=== PATIENT | female | born 1955 | race Caucasian/White ===

== ENCOUNTER → 2016-06-02 | Outpatient (CLI) | payer MEDICARE, BC ==
--- NOTE | 2016-06-04 08:35 | MM ---
Reason for exam: screening (asymptomatic). Last mammogram was performed 1 year and 1 month ago. History: Patient is postmenopausal. Family history of breast cancer in sister. Benign excisional biopsy of the right breast, 1997. Took estrogen for 23 years beginning at age 27. Physical Findings: A clinical breast exam by your physician is recommended on an annual basis and results should be correlated with mammographic findings. MG 3D Screening Mammo W/Cad Bilateral CC and MLO view(s) were taken. Prior study comparison: April 26, 2015, bilateral MG 3d diag mammo w/cad JUANCHO. February 16, 2014, right breast MG work up mamm w CAD RT. February 09, 2014, bilateral MG screening mammo w CAD. July 01, 2012, bilateral digital screening mammo w/CAD. The breast tissue is heterogeneously dense. This may lower the sensitivity of mammography. No significant changes when compared with prior studies. ASSESSMENT: Negative, BI-RAD 1 RECOMMENDATION: Routine screening mammogram of both breasts in 1 year.
== END | disposition home or self-care (01) ==
LOC: RADMAMWWP 14:48
PROVIDERS: ATTEND Obstetrics & Gynecology
DX: Z12.31 Encounter for screening mammogram for malignant neoplasm of breast (principal)
CPT/HCPCS: 77063; G0202

== ENCOUNTER → 2016-12-17 | Outpatient (CLI) | payer MEDICARE, BC ==
--- NOTE | 2016-12-18 07:01 | ECHOF ---
Referral Reason:I49.9 cardiac arrhythmia MEASUREMENTS -------- HEIGHT: 167.6 cm WEIGHT: 60.8 kg BP: IVSd: 1.1 cm (0.6 - 1.1) LVIDd: 3.6 cm (3.9 - 5.3) LVPWd: 1.2 cm (0.6 - 1.1) IVSs: 1.5 cm LVIDs: 2.0 cm LVPWs: 1.7 cm LAESV Index (A-L): 20.15 ml/m Ao Diam: 2.7 cm (2.0 - 3.7) AV Cusp: 1.7 cm (1.5 - 2.6) LA Diam: 2.9 cm (2.7 - 3.8) MV EXCURSION: 14.273 mm (> 18.000) MV EF SLOPE: 103 mm/s (70 - 150) EPSS: 0.6 cm MV E Gumaro: 0.92 m/s MV DecT: 148 ms MV A Gumaro: 1.06 m/s MV E/A Ratio: 0.86 RAP: 5.00 mmHg RVSP: 9.06 mmHg FINDINGS -------- Sinus rhythm. This was a technically good study. The left ventricular size is normal. There is mild concentric left ventricular hypertrophy. Overall left ventricular systolic function is normal with, an EF between 55 - 60 %. The right ventricle is normal in size and function. The left atrium is normal in size. The right atrium is normal in size. Aortic valve is trileaflet and is mildly thickened. The mitral valve leaflets are mildly thickened. There is trace mitral regurgitation. Trace tricuspid regurgitation present. The right ventricular systolic pressure, as measured by Doppler, is 9.06mmHg. Pulmonic valve appears structurally normal. The aortic root size is normal. The pericardium is normal. CONCLUSIONS -------- 1. Sinus rhythm. 2. The mitral valve leaflets are mildly thickened. 3. There is trace mitral regurgitation. 4. Trace tricuspid regurgitation present. 5. The right ventricular systolic pressure, as measured by Doppler, is 9.06mmHg. 6. Pulmonic valve appears structurally normal. 7. The aortic root size is normal. 8. The pericardium is normal. 9. This was a technically good study. 10. The left ventricular size is normal. 11. There is mild concentric left ventricular hypertrophy. 12. Overall left ventricular systolic function is normal with, an EF between 55 - 60 %. 13. The right ventricle is normal in size and function. 14. The left atrium is normal in size. 15. The right atrium is normal in size. 16. Aortic valve is trileaflet and is mildly thickened. [employer]: Katelyn Bella RDCS
== END | disposition home or self-care (01) ==
LOC: RADECHMAIN 12:56
PROVIDERS: ATTEND Family Medicine
DX: I08.0 Rheumatic disorders of both mitral and aortic valves (principal)
CPT/HCPCS: 93306

== ENCOUNTER → 2017-07-03 | Outpatient (CLI) | payer MEDICARE, BC ==
--- NOTE | 2017-07-06 11:03 | MM ---
Reason for exam: screening (asymptomatic). Last mammogram was performed 1 year and 1 month ago. History: Patient is postmenopausal. Family history of breast cancer in sister. Benign excisional biopsy of the right breast, 1997. Took estrogen for 23 years beginning at age 27. Physical Findings: A clinical breast exam by your physician is recommended on an annual basis and results should be correlated with mammographic findings. MG 3D Screening Mammo W/Cad Bilateral CC, MLO, and XCCL view(s) were taken. Prior study comparison: June 02, 2016, bilateral MG 3d screening mammo w/cad. April 26, 2015, bilateral MG 3d diag mammo w/cad JUANCHO. The breast tissue is heterogeneously dense. This may lower the sensitivity of mammography. No suspicious abnormality. No significant changes when compared with prior studies. ASSESSMENT: Negative, BI-RAD 1 RECOMMENDATION: Routine screening mammogram of both breasts in 1 year.
== END | disposition home or self-care (01) ==
LOC: RADMAMWWP 09:04
PROVIDERS: ATTEND Obstetrics & Gynecology
DX: Z12.31 Encounter for screening mammogram for malignant neoplasm of breast (principal)
CPT/HCPCS: 77063; 77067

== ENCOUNTER → 2018-06-10 | Outpatient (CLI) | payer MEDICARE, BC ==
--- NOTE | 2018-06-10 15:00 | US ---
EXAMINATION TYPE: US pelvic limited DATE OF EXAM: 06/10/2018 COMPARISON: NONE CLINICAL HISTORY: R10.2 Pelvic and perineal pain. Occasional pelvic pain, 2, para 1, miscarri age 1, history of complete hysterectomy 1982. TECHNIQUE: . Transabdominal sonographic images of the pelvis were acquired. Date of LMP: 1982 EXAM MEASUREMENTS: Uterus: surgically absent Endometrial Stripe: surgically absent Right Ovary: surgically absent Left Ovary: surgically absent 1. Uterus: surgically absent 2. Endometrium: surgically absent 3. Right Ovary: surgically absent 4. Left Ovary: surgically absent 5. Bilateral Adnexa: wnl 6. Posterior cul-de-sac: wnl IMPRESSION: Unremarkable pelvic ultrasound status post complete hysterectomy.
== END | disposition home or self-care (01) ==
LOC: RADUSWWP 14:03
PROVIDERS: ATTEND Family Medicine
DX: R10.2 Pelvic and perineal pain (principal); Z90.710 Acquired absence of both cervix and uterus
CPT/HCPCS: 76857

== ENCOUNTER → 2018-07-20 | Outpatient (CLI) | payer MEDICARE, OTHER ==
--- NOTE | 2018-07-22 11:11 | MM ---
Reason for exam: screening (asymptomatic). Last mammogram was performed 1 year and 1 month ago. History: Patient is postmenopausal. Family history of breast cancer in sister. Benign excisional biopsy of the right breast, 1997. Took estrogen for 23 years beginning at age 27. Physical Findings: A clinical breast exam by your physician is recommended on an annual basis and results should be correlated with mammographic findings. MG 3D Screening Mammo W/Cad Bilateral CC and MLO view(s) were taken. Prior study comparison: July 03, 2017, bilateral MG 3d screening mammo w/cad. June 02, 2016, bilateral MG 3d screening mammo w/cad. The breast tissue is heterogeneously dense. This may lower the sensitivity of mammography. No significant changes when compared with prior studies. ASSESSMENT: Benign, BI-RAD 2 RECOMMENDATION: Routine screening mammogram of both breasts in 1 year.
== END ==
LOC: RADMAMWWP 13:51
PROVIDERS: ATTEND Obstetrics & Gynecology
DX: Z12.31 Encounter for screening mammogram for malignant neoplasm of breast (principal); Z80.3 Family history of malignant neoplasm of breast
CPT/HCPCS: 77063; 77067

== ENCOUNTER → 2018-07-26 | Outpatient (CLI) | payer MEDICARE, OTHER ==
--- NOTE | 2018-07-26 13:08 | CT ---
EXAMINATION TYPE: CT facial bones wo con DATE OF EXAM: 07/26/2018 COMPARISON: None HISTORY: Headache and facial pain CT DLP: 583.[address] of the paranasal sinuses/facial bones was performed in the axial and coronal planes. B one and soft tissue settings are submitted. The paranasal sinuses demonstrate normal aeration and development. The basal thickening left sided sphenoid sinus. The remaining paranasal sinuses are well-aerated. The osteal meatal units are patent bilaterally. The nasal septum is midline. No bony destructive changes are seen within the field of view. IMPRESSION: Chronic sinusitis of the left-sided sphenoid sinus. No fracture or osseous lesions identified.
== END | disposition home or self-care (01) ==
LOC: RADCTMAIN 12:33
PROVIDERS: ATTEND Psychiatry & Neurology Neurology
DX: J32.3 Chronic sphenoidal sinusitis (principal); G50.1 Atypical facial pain
CPT/HCPCS: 70486

== ENCOUNTER → 2019-01-13 | Outpatient (CLI) | payer MEDICARE, OTHER ==
--- NOTE | 2019-01-14 07:06 | US ---
EXAMINATION TYPE: US kidneys/renal and bladder DATE OF EXAM: 01/13/2019 COMPARISON: NONE CLINICAL HISTORY: N39.0 UTI Disease. EXAM MEASUREMENTS: Right Kidney: 10.7 x5.9 x 4.4 cm Left Kidney: Surgically absent cm Post Void Residual Volume: 0.8 mL Right Kidney: No hydronephrosis or masses seen Left Kidney: Surgically absent Bladder: wnl Bilateral Jets seen: rt, left Surgically absent kidney Normal Post Void Residual: Yes There is no evidence for hydronephrosis at this point in time. No nephrolithiasis is seen. No meek s are identified. The urinary bladder is not greatly distended. Bilateral ureteral jets are not see n. After voiding bladder is essentially completely emptied. IMPRESSION: No hydronephrosis in the single right kidney.
== END | disposition home or self-care (01) ==
LOC: RADUSWWP 12:06
PROVIDERS: ATTEND Family Medicine
DX: N39.0 Urinary tract infection, site not specified (principal)
CPT/HCPCS: 76770

== ENCOUNTER 2019-03-15 22:35 | Emergency (ER) | payer MEDICARE, OTHER ==
[2019-03-15] MEDS ORDERED: SODIUM CHLORIDE 0.9% 500 ML 500 ML IV STA (22:54)
[2019-03-15] MEDS ORDERED: ONDANSETRON 4 MG/2 ML VIAL IVP STA ×2 (22:55→23:49)
[2019-03-15] MEDS ORDERED: MORPHINE SULFATE 2 MG/ML SYRINGE IVP STA (22:55)
[2019-03-15 23:15] LABS: Basophils % (A) 1 %; Eosinophils # (A) 0.1 k/uL (0-0.7); Eosinophils % (A) 2 %; HCT 42.1 % (34.0-46.0); HGB 14.3 gm/dL (11.4-16.0); Lymphocytes # (A) 2.1 k/uL (1.0-4.8); Lymphocytes % (A) 31 %; MCH 30.4 pg (25.0-35.0); MCHC 33.8 g/dL (31.0-37.0); MCV 89.8 fL (80.0-100.0); Mean Platelet Volume 7.4; Monocytes # (A) 0.6 k/uL (0-1.0); Monocytes % (A) 8 %; Neutrophils # (A) 3.5 k/uL (1.3-7.7); Neutrophils % (A) 54 %; Platelet Count 224 k/uL (150-450); RDW 11.8 % (11.5-15.5); WBC 6.6 k/uL (3.8-10.6)
[2019-03-15 23:26] LABS: ALT 22 U/L (9-52); AST 31 U/L (14-36); African American GFR (CKD) >90 (>60 ml/min/1.73 sqM); Albumin 4.2 g/dL (3.5-5.0); Alkaline Phosphatase 65 U/L (38-126); Anion Gap 7 mmol/L; Blood Urea Nitrogen 20 mg/dL (7-17); Calcium 9.3 mg/dL (8.4-10.2); Carbon Dioxide 30 mmol/L (22-30); Chloride 105 mmol/L (98-107); Glucose 124 mg/dL (74-99); Non-African American GFR(CKD) 82 (>60 ml/min/1.73 sqM); Potassium 3.9 mmol/L (3.5-5.1); Sodium 142 mmol/L (137-145); Total Bilirubin 0.4 mg/dL (0.2-1.3); Total Protein 6.9 g/dL (6.3-8.2)
[2019-03-15 23:28] LABS: INR 0.9 (<1.2); Prothrombin Time 9.6 sec (9.0-12.0)
[2019-03-15] MEDS ORDERED: MORPHINE SULFATE 4 MG/ML SYRINGE IVP STA (23:48)
[2019-03-15] MEDS ORDERED: FAMOTIDINE 20 MG/2 ML VIAL IV STA (23:50)
[2019-03-15] MEDS ORDERED: diphenhydrAMINE 50 MG/ML 1 ML VIAL IVP STA (23:50)
[2019-03-15] MEDS ORDERED: methylPREDNISolone SOD SUCCI 125 MG/2 ML VIAL IV STA (23:50)
--- NOTE | 2019-03-15 23:55 | ED ---
General Adult HPI - General Chief complaint: Syncope Stated complaint: neck/head neck Time Seen by Provider: 03/15/19 22:47 Source: patient, EMS Mode of arrival: EMS Limitations: no limitations - History of Present Illness Initial comments: 63-year-old female patient presents to the emergency department today for evaluation of headache and near syncope. Patient states the headache started suddenly approximately 30 minutes ago. Patient states the pain is in the top of her head and in her neck. Patient states that when the pain started she nearly passed out. She denies any history of similar symptoms. Denies any recent head injury. Does not take any anticoagulants or antiplatelet medications. Patient states that the day was normal for her and she felt well. Denies history of high blood pressure. Has a history of Mnire's, vertigo, and hypothyroid. Denies any new medications. Denies numbness, tingling, weakness or extremities. Denies blurred or double vision. She is reporting nausea but no vomiting. Patient denies any recent rash, shortness breath, chest pain, abdominal pain, diarrhea, constipation, back pain, numbness, tingling, hematuria, dysuria, urinary urgency, urinary frequency, or any other complaints. - Related Data Home Medications Medication Instructions Recorded Confirmed Aspirin EC [Ecotrin Low Dose] 81 mg PO DAILY 09/20/14 09/20/14 Gabapentin 600 mg PO HS 09/20/14 09/21/14 Levothyroxine Sodium [Tirosint] 100 mcg PO DAILY 09/20/14 09/20/14 Triamterene [Dyrenium] 50 mg PO DAILY 09/20/14 09/20/14 clonazePAM [KlonoPIN] 0.5 mg PO DAILY 09/20/14 09/20/14 Ascorbic Acid [Vitamin C] 1,000 mg PO DAILY 09/21/14 09/21/14 Calcium Carbonate/Vitamin D3 1 tab PO DAILY 09/21/14 09/21/14 [Calcium 600-Vit D3 400 Tablet] Loratadine [Claritin] 10 mg PO DAILY 09/21/14 09/21/14 Multivitamins, Thera [Multivitamin 1 tab PO DAILY 09/21/14 09/21/14 (formulary)] Vitamin B Complex 1 tab PO DAILY 09/21/14 09/21/14 Vitamin E (Dl,Tocopheryl Acet) 400 unit PO DAILY 09/21/14 09/21/14 [Vitamin E] cycloSPORINE [Restasis] 1 drop BOTH EYES BID 09/21/14 09/21/14 Previous Rx's Medication Instructions Recorded Meclizine [Antivert] 25 mg PO TID PRN #30 tab 09/22/14 Scopolamine 1.5MG/72Hr Patch 1 patch TRANSDERM Q72H #3 patch 09/22/14 [TransDerm Scop] methylPREDNISolone Dose Pack 4 mg PO DIRECTED #21 package 09/22/14 [Medrol Dose Pack] Allergies Allergy/AdvReac Type Severity Reaction Status Date / Time clarithromycin [From Biaxin] Allergy Unknown Verified 09/21/14 10:51 Iodinated Contrast Media Allergy Unknown Verified 09/21/14 10:51 [Iodinated Contrast Media - IV Dye] levofloxacin [From Levaquin] Allergy Unknown Verified 09/21/14 10:51 moxifloxacin HCl Allergy Unknown Verified 09/21/14 10:51 [From Avelox] Sulfa (Sulfonamide Allergy Unknown Verified 09/21/14 10:51 Antibiotics) doxycycline AdvReac Headache & Verified 09/21/14 10:51 Vomitting nitrofurantoin AdvReac Headache & Verified 09/21/14 10:51 [From Macrobid] Vomitting nitrofurantoin AdvReac Headache & Verified 09/21/14 10:51 macrocrystalline Vomitting [From Macrobid] Review of Systems ROS Statement: Those systems with pertinent positive or pertinent negative responses have been documented in the HPI. ROS Other: All systems not noted in ROS Statement are negative. Past Medical History Past Medical History: Hypertension, Thyroid Disorder Additional Past Medical History / Comment(s): VERTIGO, MENIERES DISEASE, HYPOGLYCEMIA History of Any Multi-Drug Resistant Organisms: None Reported Past Surgical History: Hysterectomy, Orthopedic Surgery Additional Past Surgical History / Comment(s): Left nephrectomy Past Anesthesia/Blood Transfusion Reactions: No Reported Reaction Past Psychological History: Anxiety, Depression, Panic Disorder Smoking Status: Former smoker Past Alcohol Use History: None Reported Past Drug Use History: None Reported - Past Family History Mother Family Medical History: Hypertension Father Family Medical History: Diabetes Mellitus General Exam Limitations: no limitations General appearance: alert, in no apparent distress, other (This is a well- developed, well-nourished adult female patient in mild distress related to pain. Vital signs upon presentation are temperature 97.2F, pulse 86, respirations 18, blood pressure 220/109, pulse ox 99% on room air.) Eye exam: Present: normal appearance, PERRL, EOMI. Absent: scleral icterus, conjunctival injection, nystagmus, periorbital swelling ENT exam: Present: normal exam, normal oropharynx, mucous membranes moist Respiratory exam: Present: normal lung sounds bilaterally. Absent: respiratory distress, wheezes, rales, rhonchi, stridor Cardiovascular Exam: Present: regular rate, normal rhythm, normal heart sounds. Absent: systolic murmur, diastolic murmur, rubs, gallop, clicks GI/Abdominal exam: Present: soft, normal bowel sounds. Absent: distended, tenderness, guarding, rebound, rigid Neurological exam: Present: alert, oriented X3, CN II-XII intact Expanded Speech: Present: fluid speech Cranial nerves: EOM's Intact: Normal, Tongue Deviation: Normal, Nystagmus: Normal Motor strength exam: RUE: 5, LUE: 5, RLE: 5, LLE: 5 Eye Response: (4) open spontaneously Motor Response: (6) obeys commands Verbal Response: (5) oriented Zap Total: 15 Psychiatric exam: Present: normal affect, normal mood Skin exam: Present: warm, dry, intact, normal color. Absent: rash Course Vital Signs 03/15/19 03/15/19 03/15/19 22:35 22:36 23:20 Temperature 97.3 F L 97.2 F L Pulse Rate 92 86 88 Respiratory 18 18 18 Rate Blood Pressure 228/110 220/109 221/109 O2 Sat by Pulse 98 99 97 Oximetry 03/16/19 03/16/19 03/16/19 00:00 01:00 01:22 Temperature Pulse Rate 100 89 80 Respiratory 18 18 18 Rate Blood Pressure 200/106 182/83 157/71 O2 Sat by Pulse 98 96 95 Oximetry 03/16/19 01:31 Temperature Pulse Rate 90 Respiratory 16 Rate Blood Pressure 130/61 O2 Sat by Pulse 97 Oximetry Medical Decision Making - Medical Decision Making 63-year-old female patient percents to the emergency department today for evaluation of sudden onset headache over the top of her head and in her neck. With symptom onset she had a near syncopal episode. Upon arrival to the emergency department blood pressures were significantly elevated. She is neurologically intact with no focal deficits. Labs are obtained and were unremarkable. She did have CT brain without contrast which showed large amount of bilateral subarachnoid hemorrhage and small amount of intraventricular hemorrhage. A CT angiography did show severe narrowing of the proximal left subclavian artery and moderate to severe multifocal narrowing of the proximal to midportion of the left vertebral artery. Patient was evaluated by my attending Dr. Courtney. Code Stroke was activated. Patient was given IV lopressor and was started on a nicardipine drip. She will be transferred to [facility] for neurointervention. Dr. Bell is accepting. - Lab Data Result diagrams: 03/15/19 22:51 03/15/19 22:51 Lab Results 03/15/19 03/15/19 03/15/19 Range/Units 22:51 22:51 22:51 WBC 6.6 (3.8-10.6) k/uL RBC 4.70 (3.80-5.40) m/uL Hgb 14.3 (11.4-16.0) gm/dL Hct 42.1 (34.0-46.0) % MCV 89.8 (80.0-100.0) fL MCH 30.4 (25.0-35.0) pg MCHC 33.8 (31.0-37.0) g/dL RDW 11.8 (11.5-15.5) % Plt Count 224 (150-450) k/uL Neutrophils % 54 % Lymphocytes % 31 % Monocytes % 8 % Eosinophils % 2 % Basophils % 1 % Neutrophils # 3.5 (1.3-7.7) k/uL Lymphocytes # 2.1 (1.0-4.8) k/uL Monocytes # 0.6 (0-1.0) k/uL Eosinophils # 0.1 (0-0.7) k/uL Basophils # 0.0 (0-0.2) k/uL PT 9.6 (9.0-12.0) sec INR 0.9 (<1.2) APTT 17.0 L (22.0-30.0) sec Sodium 142 (137-145) mmol/L Potassium 3.9 (3.5-5.1) mmol/L Chloride 105 (98-107) mmol/L Carbon Dioxide 30 (22-30) mmol/L Anion Gap 7 mmol/L BUN 20 H (7-17) mg/dL Creatinine 0.77 (0.52-1.04) mg/dL Est GFR (CKD-EPI)AfAm >90 (>60 ml/min/1.73 sqM) Est GFR (CKD-EPI)NonAf 82 (>60 ml/min/1.73 sqM) Glucose 124 H (74-99) mg/dL Calcium 9.3 (8.4-10.2) mg/dL Total Bilirubin 0.4 (0.2-1.3) mg/dL AST 31 (14-36) U/L ALT 22 (9-52) U/L Alkaline Phosphatase 65 (38-126) U/L Troponin I (0.000-0.034) ng/mL Total Protein 6.9 (6.3-8.2) g/dL Albumin 4.2 (3.5-5.0) g/dL 03/15/19 Range/Units 22:51 WBC (3.8-10.6) k/uL RBC (3.80-5.40) m/uL Hgb (11.4-16.0) gm/dL Hct (34.0-46.0) % MCV (80.0-100.0) fL MCH (25.0-35.0) pg MCHC (31.0-37.0) g/dL RDW (11.5-15.5) % Plt Count (150-450) k/uL Neutrophils % % Lymphocytes % % Monocytes % % Eosinophils % % Basophils % % Neutrophils # (1.3-7.7) k/uL Lymphocytes # (1.0-4.8) k/uL Monocytes # (0-1.0) k/uL Eosinophils # (0-0.7) k/uL Basophils # (0-0.2) k/uL PT (9.0-12.0) sec INR (<1.2) APTT (22.0-30.0) sec Sodium (137-145) mmol/L Potassium (3.5-5.1) mmol/L Chloride (98-107) mmol/L Carbon Dioxide (22-30) mmol/L Anion Gap mmol/L BUN (7-17) mg/dL Creatinine (0.52-1.04) mg/dL Est GFR (CKD-EPI)AfAm (>60 ml/min/1.73 sqM) Est GFR (CKD-EPI)NonAf (>60 ml/min/1.73 sqM) Glucose (74-99) mg/dL Calcium (8.4-10.2) mg/dL Total Bilirubin (0.2-1.3) mg/dL AST (14-36) U/L ALT (9-52) U/L Alkaline Phosphatase (38-126) U/L Troponin I <0.012 (0.000-0.034) ng/mL Total Protein (6.3-8.2) g/dL Albumin (3.5-5.0) g/dL - EKG Data -: EKG Interpreted by [facility] EKG Comments: EKG obtained at 2250 shows normal sinus rhythm with a ventricular rate of 76, DE interval 172, QRS duration 84, QT 392, QTc 441. No evidence of ST elevation or depression. - Radiology Data Radiology results: report reviewed, image reviewed CT head without contrast was obtained. Report was reviewed in its entirety. Impression by shows large amount of bilateral subarachnoid hemorrhage and small amount of intraventricular hemorrhage. The largest amount of hemorrhages along the anterior cerebral artery distribution suspicious for ruptured aneurysm. CT head and neck angiography with IV contrast was obtained. Report was reviewed in its entirety, impression by shows no significant stenosis of the carotid arteries. Small left vertebral artery with some moderate to severe multifocal narrowings in the proximal to midportion. Severe narrowing of the proximal left subclavian artery. Disposition Clinical Impression: Subarachnoid hemorrhage, Intraventricular hemorrhage Disposition: ADMITTED IP TO THIS HOSP Condition: Serious Referrals: Johny Bone MD [Primary Care Provider] - 1-2 days Decision to Admit Reason: Admit from EC Decision Date: 03/16/19 Decision Time: 01:36
[2019-03-16] MEDS ORDERED: METOPROLOL TARTRATE 5 MG/5 ML VIAL IVP SCH (00:30)
[2019-03-16] MEDS ORDERED: niCARdipine 20 MG in SODIUM CHLORIDE 0.9% 192 ML IV SCH (00:30)
[2019-03-16] MEDS ORDERED: METOCLOPRAMIDE 5 MG/ML 2 ML VIAL IVP STA (00:36)
[2019-03-16] MEDS ORDERED: LABETALOL 100 MG in SODIUM CHLORIDE 0.9% 80 ML IV ONE (00:59)
[2019-03-16] MEDS ORDERED: LABETALOL 5 MG/ML VIAL MDV IVP SCH (01:30)
[2019-03-16 01:32] VITALS: BP 130/61; PULSE 90; RESP 16
[2019-03-16 01:39] LABS: Appearance,Urine Clear (Clear); Bacteria,Urine Rare /hpf; Bilirubin,Urine Negative (Negative); Blood,Urine Negative (Negative); Color,Urine Light Yellow; Glucose,Urine (UA) Negative (Negative); Ketones,Urine Negative (Negative); Leukocyte Esterase,Urine Small (Negative); Nitrite,Urine Negative (Negative); Protein,Urine Negative (Negative); RBC,Urine 3 /hpf (0-5); Specific Gravity,Urine 1.017 (1.001-1.035); Squamous Epithelial Cell,Urine <1 /hpf (0-4); Urobilinogen,Urine <2.0 mg/dL (<2.0); WBC,Urine 7 /hpf (0-5)
[2019-03-16 01:41] VITALS: TEMP 97.5
--- NOTE | 2019-03-16 10:06 | XR ---
EXAM: XR Chest, 1 View CLINICAL HISTORY: Its. reason XR Reason: syncope TECHNIQUE: Frontal view of the chest. COMPARISON: Chest x-ray, 09/20/2014. FINDINGS: Lungs: Mild increased opacification within the lung bases which may represent atelectasis versus aspiration. Pleural space: Biapical pleural thickening. No pneumothorax. Heart: Unremarkable. No cardiomegaly. Mediastinum: Unremarkable. Bones/joints: Unremarkable. IMPRESSION: Mild increased opacification within the lung bases which may represent atelectasis versus aspiration.
--- NOTE | 2019-03-16 10:06 | CT ---
EXAM: CT Head Without Intravenous Contrast CLINICAL HISTORY: Its. reason CT Reason: Sudden onset JUÁREZ, neck pain, near syncope TECHNIQUE: Axial computed tomography images of the head/brain without intravenous contrast. CTDI is 49 mGy and DLP is 1076 mGy-cm. This CT exam was performed using one or more of the following dose reduction techniques: automated exposure control, adjustment of the mA and/or kV according to patient size, and/or use of iterative reconstruction technique. COMPARISON: No relevant prior studies available. FINDINGS: Brain: Large amount of bilateral subarachnoid hemorrhage. Subarachnoid hemorrhage along the corpus callosum frontal temporal lobes, insula, and basilar cisterns. There is a small amount of intraventricular hemorrhage most notable in the fourth ventricle. Ventricles: Unremarkable. No ventriculomegaly. Bones/joints: Unremarkable. No acute fracture. Soft tissues: Unremarkable. Sinuses: Unremarkable as visualized. No acute sinusitis. Mastoid air cells: Unremarkable as visualized. No mastoid effusion. IMPRESSION: Large amount of bilateral subarachnoid hemorrhage and small amount of intraventricular hemorrhage. Largest amount of hemorrhage is along the anterior cerebral artery distribution suspicious for a ruptured aneurysm. <MYCVCSECTION> Communications: 03/16/19 00:53 Call Doctor Regarding Intracranial Hemorrhage, called Dr. Courtney
--- NOTE | 2019-03-16 10:06 | CT ---
EXAM: CT Angiography Head With Intravenous Contrast CLINICAL HISTORY: Its. reason CT Reason: Sudden onset JUÁREZ, neck pain, near syncope TECHNIQUE: Axial computed tomographic angiography images of the head with intravenous contrast using CT angiography protocol. CTDI is 50 mGy and DLP is 1076 mGy-cm. This CT exam was performed using one or more of the following dose reduction techniques: automated exposure control, adjustment of the mA and/or kV according to patient size, and/or use of iterative reconstruction technique. MIP reconstructed images were created and reviewed. COMPARISON: No relevant prior studies available. FINDINGS: Right internal carotid artery: No acute findings. Intracranial segment is patent with no significant stenosis. No aneurysm. Right anterior cerebral artery: No occlusion or significant stenosis. No aneurysm. Right middle cerebral artery: No occlusion or significant stenosis. No aneurysm. Right posterior cerebral artery: No occlusion or significant stenosis. No aneurysm. Right vertebral artery: Unremarkable as visualized. Left internal carotid artery: No acute findings. Intracranial segment is patent with no significant stenosis. No aneurysm. 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 Body measures 6 mm. [place] to base measures 5 mm. This is projected anteriorly and laterally. No occlusion or significant stenosis. Left middle cerebral artery: No occlusion or significant stenosis. No aneurysm. Left posterior cerebral artery: No occlusion or significant stenosis. No aneurysm. Left vertebral artery: Unremarkable as visualized. Basilar artery: Unremarkable. No occlusion or significant stenosis. No aneurysm. Brain: Again demonstrated is a bilateral subarachnoid hemorrhage. 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 Evidence for rupture with bilateral subarachnoid hemorrhage. EXAM: CT Angiography Neck With Intravenous Contrast CLINICAL HISTORY: Its. reason CT Reason: Sudden onset JUÁREZ, neck pain, near syncope TECHNIQUE: Axial computed tomographic angiography images of the neck with intravenous contrast using CT angiography protocol. CTDI is 50 mGy and DLP is 1076 mGy-cm. This CT exam was performed using one or more of the following dose reduction techniques: automated exposure control, adjustment of the mA and/or kV according to patient size, and/or use of iterative reconstruction technique. MIP reconstructed images were created and reviewed. COMPARISON: No relevant prior studies available. FINDINGS: VASCULATURE: Right common carotid artery: Unremarkable. No significant stenosis. No dissection or occlusion. Right internal carotid artery: Calcification and noncalcified plaque in bilateral carotid bifurcations and proximal internal carotid arteries. There is some mild narrowing of the proximal internal carotid arteries, less than 20%. This is greater on the right. External carotid artery: Unremarkable. No occlusion. Right vertebral artery: Dominant right vertebral artery. There is some calcification at the origin of the right vertebral artery without significant narrowing. Left common carotid artery: Unremarkable. No significant stenosis. No dissection or occlusion. Left internal carotid artery: Unremarkable. Extracranial segment is patent with no significant stenosis. No dissection or occlusion. Left external carotid artery: Unremarkable. No occlusion. Left vertebral artery: There is some moderate to severe short segment narrowings within the proximal to mid left vertebral artery. Other vasculature: There is some plaque causing severe narrowing within the proximal left subclavian artery. NECK: Bones/joints: Cervical degenerative changes. No acute fracture. No dislocation. Soft tissues: Unremarkable as visualized. No mass. Lung apices: Biapical pleural-parenchymal scarring. CAROTID STENOSIS REFERENCE USING NASCET CRITERIA: % ICA stenosis = (1 - narrowest ICA diameter/diameter of distal cervical ICA) x 100. Mild - <50% stenosis. Moderate - 50-69% stenosis. Severe - 70-94% stenosis. Near occlusion - 95-99% stenosis. Occluded - 100% stenosis. IMPRESSION: 1. No significant stenosis of the carotid arteries. 2. Smaller left vertebral artery with some moderate to severe multifocal narrowings in the proximal to midportion. 3. Severe narrowing of the proximal left subclavian artery.
--- NOTE | 2019-03-18 03:55 | CDI ---
Dear Antonia Hernandez [facility]-: Please do addendum clarification whether Patient's Disposition was "Transferred to acute care hospital" or "Admitted as IP to this Hospital." In med decision making section- "She will be transferred to [facility] for neurointervention. Where as in Disposition section of ED Report is says : Admit as IP to this hospital Thank you, Nathan Palmer, Eyeglass Lens Cutter. If you have any questions, please contact Director Of Exhibits at [phone]. JOSED
--- NOTE | 2019-04-04 06:05 | ED ---
Medical Decision Making - Lab Data Result diagrams: 03/15/19 22:51 03/15/19 22:51 Lab Results 03/15/19 03/15/19 03/15/19 Range/Units 22:51 22:51 22:51 WBC 6.6 (3.8-10.6) k/uL RBC 4.70 (3.80-5.40) m/uL Hgb 14.3 (11.4-16.0) gm/dL Hct 42.1 (34.0-46.0) % MCV 89.8 (80.0-100.0) fL MCH 30.4 (25.0-35.0) pg MCHC 33.8 (31.0-37.0) g/dL RDW 11.8 (11.5-15.5) % Plt Count 224 (150-450) k/uL Neutrophils % 54 % Lymphocytes % 31 % Monocytes % 8 % Eosinophils % 2 % Basophils % 1 % Neutrophils # 3.5 (1.3-7.7) k/uL Lymphocytes # 2.1 (1.0-4.8) k/uL Monocytes # 0.6 (0-1.0) k/uL Eosinophils # 0.1 (0-0.7) k/uL Basophils # 0.0 (0-0.2) k/uL PT 9.6 (9.0-12.0) sec INR 0.9 (<1.2) APTT 17.0 L (22.0-30.0) sec Sodium 142 (137-145) mmol/L Potassium 3.9 (3.5-5.1) mmol/L Chloride 105 (98-107) mmol/L Carbon Dioxide 30 (22-30) mmol/L Anion Gap 7 mmol/L BUN 20 H (7-17) mg/dL Creatinine 0.77 (0.52-1.04) mg/dL Est GFR (CKD-EPI)AfAm >90 (>60 ml/min/1.73 sqM) Est GFR (CKD-EPI)NonAf 82 (>60 ml/min/1.73 sqM) Glucose 124 H (74-99) mg/dL Calcium 9.3 (8.4-10.2) mg/dL Total Bilirubin 0.4 (0.2-1.3) mg/dL AST 31 (14-36) U/L ALT 22 (9-52) U/L Alkaline Phosphatase 65 (38-126) U/L Troponin I (0.000-0.034) ng/mL Total Protein 6.9 (6.3-8.2) g/dL Albumin 4.2 (3.5-5.0) g/dL Urine Color Urine Appearance (Clear) Urine pH (5.0-8.0) Ur Specific [place] (1.001-1.035) Urine Protein (Negative) Urine Glucose (UA) (Negative) Urine Ketones (Negative) Urine Blood (Negative) Urine Nitrite (Negative) Urine Bilirubin (Negative) Urine Urobilinogen (<2.0) mg/dL Ur Leukocyte Esterase (Negative) Urine RBC (0-5) /hpf Urine WBC (0-5) /hpf Ur Squamous Epith Cells (0-4) /hpf Urine Bacteria (None) /hpf 03/15/19 03/16/19 Range/Units 22:51 01:15 WBC (3.8-10.6) k/uL RBC (3.80-5.40) m/uL Hgb (11.4-16.0) gm/dL Hct (34.0-46.0) % MCV (80.0-100.0) fL MCH (25.0-35.0) pg MCHC (31.0-37.0) g/dL RDW (11.5-15.5) % Plt Count (150-450) k/uL Neutrophils % % Lymphocytes % % Monocytes % % Eosinophils % % Basophils % % Neutrophils # (1.3-7.7) k/uL Lymphocytes # (1.0-4.8) k/uL Monocytes # (0-1.0) k/uL Eosinophils # (0-0.7) k/uL Basophils # (0-0.2) k/uL PT (9.0-12.0) sec INR (<1.2) APTT (22.0-30.0) sec Sodium (137-145) mmol/L Potassium (3.5-5.1) mmol/L Chloride (98-107) mmol/L Carbon Dioxide (22-30) mmol/L Anion Gap mmol/L BUN (7-17) mg/dL Creatinine (0.52-1.04) mg/dL Est GFR (CKD-EPI)AfAm (>60 ml/min/1.73 sqM) Est GFR (CKD-EPI)NonAf (>60 ml/min/1.73 sqM) Glucose (74-99) mg/dL Calcium (8.4-10.2) mg/dL Total Bilirubin (0.2-1.3) mg/dL AST (14-36) U/L ALT (9-52) U/L Alkaline Phosphatase (38-126) U/L Troponin I <0.012 (0.000-0.034) ng/mL Total Protein (6.3-8.2) g/dL Albumin (3.5-5.0) g/dL Urine Color Light Yellow Urine Appearance Clear (Clear) Urine pH 8.0 (5.0-8.0) Ur Specific [place] 1.017 (1.001-1.035) Urine Protein Negative (Negative) Urine Glucose (UA) Negative (Negative) Urine Ketones Negative (Negative) Urine Blood Negative (Negative) Urine Nitrite Negative (Negative) Urine Bilirubin Negative (Negative) Urine Urobilinogen <2.0 (<2.0) mg/dL Ur Leukocyte Esterase Small H (Negative) Urine RBC 3 (0-5) /hpf Urine WBC 7 H (0-5) /hpf Ur Squamous Epith Cells <1 (0-4) /hpf Urine Bacteria Rare H (None) /hpf Disposition Clinical Impression: Subarachnoid hemorrhage, Intraventricular hemorrhage Disposition: OTHER INSTITUTION NOT DEFINED Condition: Serious Referrals: Johny Bone MD [Primary Care Provider] - 1-2 days - Out of Hospital Transfer - Req. Specs Out of Hospital Transfer - Requested Specifics: Other Emergency Center
== END 2019-03-16 02:00 | disposition short-term general hospital (02) ==
LOC: EC 22:35
DX: I61.5 Nontraumatic intracerebral hemorrhage, intraventricular (principal); I60.9 Nontraumatic subarachnoid hemorrhage, unspecified; I10 Essential (primary) hypertension; I77.1 Stricture of artery; E03.9 Hypothyroidism, unspecified; H81.09 Meniere's disease, unspecified ear; F41.0 Panic disorder [episodic paroxysmal anxiety]; Z87.891 Personal history of nicotine dependence; Z88.1 Allergy status to other antibiotic agents; Z88.2 Allergy status to sulfonamides; Z91.041 Radiographic dye allergy status; Z79.82 Long term (current) use of aspirin; Z79.890 Hormone replacement therapy; Z79.899 Other long term (current) drug therapy; Z82.49 Family history of ischemic heart disease and other diseases of the circulatory system
CPT/HCPCS: 99291; 96365; 96375 ×7; 96376 ×2; 36415; 93005; 80053; 84484; 85025; 85610; 85730; 81001; 71045; 70496; 70450; 70498; J2270 ×2; J1200; J2765; J2930; J2405 ×2; Q9967

== ENCOUNTER 2019-04-04 20:06 | Emergency (ER) | payer MEDICARE, OTHER ==
[2019-04-04] MEDS ORDERED: LORazepam 2 MG/ML INJ IV STA (20:50)
[2019-04-04] MEDS ORDERED: hydrALAZINE HCL 20 MG/ML 1 ML VIAL IVP STA (20:50)
--- NOTE | 2019-04-04 21:17 | ED ---
Recheck HPI - General Chief Complaint: Recheck/Abnormal Lab/Rx Stated Complaint: High BP Time Seen by Provider: 04/04/19 20:35 Source: patient Mode of arrival: wheelchair Limitations: physical limitation - History of Present Illness Initial Comments: 63-year-old with recently coiled brain aneurysm. Patient states she had a ruptured aneurysm 1211 she states she was discharged from the hospital placed in a rehab facility and patient. Patient states she is recent discharge however had high blood pressure and discharge per she states she consulted the neurology team at [facility] where she was told to take a double dose of her lisinopril and to come to the emergency department if blood pressure is not controlled to 1 hour. Patient denies a symptoms denies any headache nausea vomiting neck pain visual changes because of the upper lower extremity speech changes. Patient denies any chest pain source of breath or decreased urine output. Patient states she feels fine. He careful with her blood pressure given her history. A radiopaque system negative patient states she has been anxious ever since her discharge from the hospital - Related Data Home Medications Medication Instructions Recorded Confirmed Aspirin EC [Ecotrin Low Dose] 81 mg PO DAILY 09/20/14 09/20/14 Gabapentin 600 mg PO HS 09/20/14 09/21/14 Levothyroxine Sodium [Tirosint] 100 mcg PO DAILY 09/20/14 09/20/14 Triamterene [Dyrenium] 50 mg PO DAILY 09/20/14 09/20/14 clonazePAM [KlonoPIN] 0.5 mg PO DAILY 09/20/14 09/20/14 Ascorbic Acid [Vitamin C] 1,000 mg PO DAILY 09/21/14 09/21/14 Calcium Carbonate/Vitamin D3 1 tab PO DAILY 09/21/14 09/21/14 [Calcium 600-Vit D3 400 Tablet] Loratadine [Claritin] 10 mg PO DAILY 09/21/14 09/21/14 Multivitamins, Thera [Multivitamin 1 tab PO DAILY 09/21/14 09/21/14 (formulary)] Vitamin B Complex 1 tab PO DAILY 09/21/14 09/21/14 Vitamin E (Dl,Tocopheryl Acet) 400 unit PO DAILY 09/21/14 09/21/14 [Vitamin E] cycloSPORINE [Restasis] 1 drop BOTH EYES BID 09/21/14 09/21/14 Previous Rx's Medication Instructions Recorded Meclizine [Antivert] 25 mg PO TID PRN #30 tab 09/22/14 Scopolamine 1.5MG/72Hr Patch 1 patch TRANSDERM Q72H #3 patch 09/22/14 [TransDerm Scop] methylPREDNISolone Dose Pack 4 mg PO DIRECTED #21 package 09/22/14 [Medrol Dose Pack] Metoprolol Tartrate [Lopressor] 50 mg PO BID 7 Days #14 tablet 04/04/19 Allergies Allergy/AdvReac Type Severity Reaction Status Date / Time clarithromycin [From Biaxin] Allergy Unknown Verified 04/04/19 20:14 Iodinated Contrast Media Allergy Unknown Verified 04/04/19 20:14 [Iodinated Contrast Media - IV Dye] levofloxacin [From Levaquin] Allergy Unknown Verified 04/04/19 20:14 moxifloxacin HCl Allergy Unknown Verified 04/04/19 20:14 [From Avelox] Sulfa (Sulfonamide Allergy Unknown Verified 04/04/19 20:14 Antibiotics) doxycycline AdvReac Headache & Verified 04/04/19 20:14 Vomitting nitrofurantoin AdvReac Headache & Verified 04/04/19 20:14 [From Macrobid] Vomitting nitrofurantoin AdvReac Headache & Verified 04/04/19 20:14 macrocrystalline Vomitting [From Macrobid] Review of Systems ROS Statement: Those systems with pertinent positive or pertinent negative responses have been documented in the HPI. ROS Other: All systems not noted in ROS Statement are negative. Past Medical History Past Medical History: Hypertension, Thyroid Disorder Additional Past Medical History / Comment(s): VERTIGO, MENIERES DISEASE, HYPOGLYCEMIA History of Any Multi-Drug Resistant Organisms: None Reported Past Surgical History: Hysterectomy, Orthopedic Surgery Additional Past Surgical History / Comment(s): Left nephrectomy, brain aneurysm with coil Past Anesthesia/Blood Transfusion Reactions: No Reported Reaction Past Psychological History: Anxiety, Depression, Panic Disorder Smoking Status: Former smoker Past Alcohol Use History: None Reported Past Drug Use History: None Reported - Past Family History Mother Family Medical History: Hypertension Father Family Medical History: Diabetes Mellitus General Exam - General Exam Comments Initial Comments: General: The patient is awake and alert, in no distress, and does not appear acutely ill. Eye: +3 mm pupils are equal, round and reactive to light, extra-ocular movements are intact. No nystagmus. There is normal conjunctiva bilaterally. No signs of icterus. Ears, nose, mouth and throat: There are moist mucous membranes and no oral lesions. Neck: The neck is supple, there is no tenderness or JVD. Cardiovascular: There is a regular rate and rhythm. No murmur, rub or gallop is appreciated. Respiratory: Lungs are clear to auscultation, respirations are non-labored, breath sounds are equal. No wheezes, stridor, rales, or rhonchi. Musculoskeletal: Normal ROM, no tenderness. Strength 5/5. Sensation intact. Radial pulses equal bilaterally 2+. Neurological: A&O x 3. CN II-XII intact, There are no obvious motor or sensory deficits. Coordination appears grossly intact. Speech is normal. Skin: Skin is warm and dry and no rashes or lesions are noted. Psychiatric: Cooperative, appropriate mood & affect, normal judgment. 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 Patient was given 10 mg of hydralazine as well as Ativan for anxiety. Patient's blood pressure improved. I consult to Dr. Panchal who stated he did not instruct the patient to come to the emergency department however he states that her blood pressure is acceptable and she stated for discharge with further blood pressure management outpatient patient has blood production or cough he states that she is to take blood pressure and begin Lopressor 50 mg twice a day for elevated blood pressure he states that since patient is unable to obtain the top at local pharmacies that this is no longer needed needed and can be discontinued. Patient agreeable to care plan and discharge. return parametes discussed. case discussed Dr. Boone Disposition Clinical Impression: Elevated blood pressure reading Disposition: HOME SELF-CARE Condition: Good Instructions (If sedation given, give patient instructions): Hypertension (ED) Additional Instructions: Please use medication as discussed. Please follow-up with family doctor in the next 2 days, for further BP management, Dr. Bell states you do not have to fill the nimotop if not available at local pharmacies and you may take lopressor for BP management. Please return to emergency room if the symptoms increase or worsen or for any other concerns. Prescriptions: Metoprolol Tartrate [Lopressor] 50 mg PO BID 7 Days #14 tablet Is patient prescribed a controlled substance at d/c from ED?: No Referrals: Johny Bone MD [Primary Care Provider] - 1-2 days Time of Disposition: 23:13
[2019-04-04 22:17] VITALS: RESP 16
[2019-04-04 22:54] VITALS: BP 155/90
[2019-04-04 23:15] VITALS: PULSE 103
[2019-04-04 23:40] VITALS: TEMP 97.9
== END 2019-04-04 23:30 | disposition home or self-care (01) ==
LOC: EC 20:06
DX: I10 Essential (primary) hypertension (principal); E07.9 Disorder of thyroid, unspecified; F41.0 Panic disorder [episodic paroxysmal anxiety]; Z79.899 Other long term (current) drug therapy; Z88.1 Allergy status to other antibiotic agents; Z91.041 Radiographic dye allergy status; Z88.2 Allergy status to sulfonamides; Z87.891 Personal history of nicotine dependence; Z90.5 Acquired absence of kidney
CPT/HCPCS: 99283; 96374; 96375; J2060; J0360

== ENCOUNTER 2019-04-17 20:22 | Observation (INO) | payer MEDICARE, OTHER ==
[2019-04-17] MEDS ORDERED: LABETALOL 5 MG/ML VIAL MDV IVP STA ×2 (20:46→21:49)
[2019-04-17 21:05] LABS: Basophils # (A) 0.1 k/uL (0-0.2); Basophils % (A) 1 %; Eosinophils # (A) 0.2 k/uL (0-0.7); Eosinophils % (A) 3 %; HCT 35.4 % (34.0-46.0); HGB 12.3 gm/dL (11.4-16.0); Lymphocytes # (A) 1.8 k/uL (1.0-4.8); Lymphocytes % (A) 27 %; MCH 30.6 pg (25.0-35.0); MCHC 34.8 g/dL (31.0-37.0); MCV 87.9 fL (80.0-100.0); Mean Platelet Volume 7.6; Monocytes # (A) 0.6 k/uL (0-1.0); Monocytes % (A) 9 %; Neutrophils # (A) 3.9 k/uL (1.3-7.7); Neutrophils % (A) 57 %; Platelet Count 287 k/uL (150-450); Poikilocytosis Slight; RBC 4.02 m/uL (3.80-5.40); WBC 6.8 k/uL (3.8-10.6)
[2019-04-17 21:16] LABS: INR 0.9 (<1.2); Partial Thromboplastin Time 22.8 sec (22.0-30.0); Prothrombin Time 9.7 sec (9.0-12.0)
--- NOTE | 2019-04-17 21:20 | ED ---
General Adult HPI - General Chief complaint: Recheck/Abnormal Lab/Rx Stated complaint: Hypertensive Time Seen by Provider: 04/17/19 20:45 Source: patient Mode of arrival: ambulatory Limitations: no limitations - History of Present Illness Initial comments: Patient presents to the ED with her son for evaluation. Patient states that she suffered a ruptured brain aneurysm on 03/15/2019. Patient states that she had her aneurysm coiled the next day at [facility]. Patient states that ever since then, her blood pressure readings have been elevated. Patient states that her specialist at [facility] started her on metoprolol and lisinopril for blood pressure management, but she states that her blood pressure readings continue to be elevated. Patient states that her readings have been particularly elevated since last night. Patient admits to having intermittent headaches, but she states that she has had these headaches ever since her aneurysm rupture last month. Patient denies having any other symptoms or complaints. Patient denies trauma or injury, fever or chills, focal numbness/weakness/neuro deficit, visual changes, speech problems, neck pain or stiffness, LOC, chest pain, dyspnea, dizziness, palpitations, abdominal pain, nausea or vomiting, or any other symptoms or complaints. Patient states that she was instructed by her specialist at [facility] to establish care with a primary care provider for further management of her hypertension, but she has yet to do so. - Related Data Home Medications Medication Instructions Recorded Confirmed Aspirin EC [Ecotrin Low Dose] 81 mg PO DAILY 09/20/14 04/18/19 Levothyroxine Sodium [Tirosint] 100 mcg PO DAILY 09/20/14 04/18/19 Ascorbic Acid [Vitamin C] 1,000 mg PO DAILY 09/21/14 04/18/19 Calcium Carbonate/Vitamin D3 1 tab PO DAILY 09/21/14 04/18/19 [Calcium 600-Vit D3 400 Tablet] Multivitamins, Thera [Multivitamin 1 tab PO DAILY 09/21/14 04/18/19 (formulary)] cycloSPORINE [Restasis] 1 drop BOTH EYES BID 09/21/14 04/18/19 Cephalexin [Keflex] 500 mg PO Q12HR 04/18/19 04/18/19 Famotidine [Pepcid] 20 mg PO DAILY 04/18/19 04/18/19 Fludrocortisone [Florinef] 0.1 mg PO TID 04/18/19 04/18/19 LORazepam [Ativan] 0.5 mg PO HS 04/18/19 04/18/19 Lisinopril 40 mg PO DAILY 04/18/19 04/18/19 Simvastatin [Zocor] 10 mg PO HS 04/18/19 04/18/19 Previous Rx's Medication Instructions Recorded Metoprolol Tartrate [Lopressor] 50 mg PO BID 7 Days #14 tablet 04/04/19 Allergies Allergy/AdvReac Type Severity Reaction Status Date / Time clarithromycin [From Biaxin] Allergy Unknown Verified 04/17/19 20:32 Iodinated Contrast Media Allergy Unknown Verified 04/17/19 20:32 [Iodinated Contrast Media - IV Dye] levofloxacin [From Levaquin] Allergy Unknown Verified 04/17/19 20:32 methylprednisolone Allergy Rash/Hives Verified 04/18/19 01:12 [From Medrol] moxifloxacin HCl Allergy Unknown Verified 04/17/19 20:32 [From Avelox] Sulfa (Sulfonamide Allergy Unknown Verified 04/17/19 20:32 Antibiotics) doxycycline AdvReac Headache & Verified 04/17/19 20:32 Vomitting nitrofurantoin AdvReac Headache & Verified 04/17/19 20:32 [From Macrobid] Vomitting nitrofurantoin AdvReac Headache & Verified 04/17/19 20:32 macrocrystalline Vomitting [From Macrobid] Review of Systems ROS Statement: Those systems with pertinent positive or pertinent negative responses have been documented in the HPI. ROS Other: All systems not noted in ROS Statement are negative. Past Medical History Past Medical History: Hypertension, Thyroid Disorder Additional Past Medical History / Comment(s): VERTIGO, MENIERES DISEASE, HYPOGLYCEMIA, History of Any Multi-Drug Resistant Organisms: None Reported Past Surgical History: Hysterectomy, Orthopedic Surgery Additional Past Surgical History / Comment(s): Left nephrectomy, brain aneurysm with coil, Past Anesthesia/Blood Transfusion Reactions: No Reported Reaction Past Psychological History: Anxiety, Depression, Panic Disorder Smoking Status: Former smoker Past Alcohol Use History: None Reported Past Drug Use History: None Reported - Past Family History Mother Family Medical History: Hypertension Father Family Medical History: Diabetes Mellitus General Exam Limitations: no limitations General appearance: alert, in no apparent distress Head exam: Present: atraumatic, normocephalic Eye exam: Present: normal appearance, PERRL, EOMI ENT exam: Present: mucous membranes moist Neck exam: Present: other (Trachea is in midline). Absent: tenderness, meningismus Respiratory exam: Present: normal lung sounds bilaterally. Absent: respiratory distress, wheezes, rales, rhonchi Cardiovascular Exam: Present: regular rate, normal rhythm, normal heart sounds, other (Normal radial pulses bilaterally) GI/Abdominal exam: Present: soft. Absent: distended, tenderness, guarding Extremities exam: Present: full ROM. Absent: tenderness, pedal edema, calf tenderness Neurological exam: Present: alert, oriented X3, CN II-XII intact. Absent: motor sensory deficit Psychiatric exam: Present: normal affect, normal mood Skin exam: Present: warm, dry, intact, normal color Course Vital Signs 04/17/19 04/17/19 04/17/19 20:28 21:29 21:30 Temperature 98.2 F Pulse Rate 69 75 80 Respiratory 18 16 15 Rate Blood Pressure 220/103 199/96 196/99 O2 Sat by Pulse 99 99 99 Oximetry 04/17/19 04/17/19 04/17/19 21:40 22:00 22:10 Temperature Pulse Rate 69 72 66 Respiratory 18 20 16 Rate Blood Pressure 214/92 195/79 215/89 O2 Sat by Pulse 95 96 99 Oximetry 04/17/19 04/17/19 04/17/19 22:20 22:30 22:40 Temperature Pulse Rate 69 82 78 Respiratory 20 18 16 Rate Blood Pressure 209/89 209/89 172/75 O2 Sat by Pulse 97 100 97 Oximetry 04/17/19 04/17/19 04/17/19 22:50 23:00 23:10 Temperature Pulse Rate 75 81 82 Respiratory 16 35 H 12 Rate Blood Pressure 174/76 174/76 177/83 O2 Sat by Pulse 96 97 98 Oximetry 04/17/19 23:43 Temperature 98.2 F Pulse Rate 92 Respiratory 17 Rate Blood Pressure 178/72 O2 Sat by Pulse 99 Oximetry - Reevaluation(s) Reevaluation #1: 04/18/19 01:09 Patient's blood pressure has now improved, but is still elevated. Patient denies development of any new symptoms while in the ED, and she remains alert and breathing comfortably. Patient and son are aware of the patient's test results, and patient agrees with hospital admission this time. 04/18/19 01:13 After multiple pages, Dr. Penaloza was eventually contacted. Case, H&P, test results and ED management were discussed with him, and he accepts hospital admission. He has no further recommendations at this time. EKG Findings - EKG Comments: EKG Findings:: Normal sinus rhythm, ventricular rate of 67 bpm, no ectopy, no rmal PA and QRS intervals, normal QT interval, normal axis, no ST or T-wave abnormality Medical Decision Making - Medical Decision Making Given the patient's uncontrolled high blood pressure for the past several weeks and inability to establish care with a primary care provider, I felt that it would be best to admit the patient to the hospital for further evaluation and management of her hypertension. Patient was also given oral potassium repletion in the ED. Patient's head CT is negative. Patient agrees with, and prefers, hospital admission. Dr. Penaloza has accepted hospital admission. - Lab Data Result diagrams: 04/17/19 20:46 04/17/19 20:46 Lab Results 04/17/19 04/17/19 04/17/19 Range/Units 20:46 20:46 20:46 WBC 6.8 (3.8-10.6) k/uL RBC 4.02 (3.80-5.40) m/uL Hgb 12.3 (11.4-16.0) gm/dL Hct 35.4 (34.0-46.0) % MCV 87.9 (80.0-100.0) fL MCH 30.6 (25.0-35.0) pg MCHC 34.8 (31.0-37.0) g/dL RDW 13.0 (11.5-15.5) % Plt Count 287 (150-450) k/uL Neutrophils % 57 % Lymphocytes % 27 % Monocytes % 9 % Eosinophils % 3 % Basophils % 1 % Neutrophils # 3.9 (1.3-7.7) k/uL Lymphocytes # 1.8 (1.0-4.8) k/uL Monocytes # 0.6 (0-1.0) k/uL Eosinophils # 0.2 (0-0.7) k/uL Basophils # 0.1 (0-0.2) k/uL Poikilocytosis Slight PT 9.7 (9.0-12.0) sec INR 0.9 (<1.2) APTT 22.8 (22.0-30.0) sec Sodium 143 (137-145) mmol/L Potassium 2.4 L* (3.5-5.1) mmol/L Chloride 101 (98-107) mmol/L Carbon Dioxide 36 H (22-30) mmol/L Anion Gap 6 mmol/L BUN 11 (7-17) mg/dL Creatinine 0.56 (0.52-1.04) mg/dL Est GFR (CKD-EPI)AfAm >90 (>60 ml/min/1.73 sqM) Est GFR (CKD-EPI)NonAf >90 (>60 ml/min/1.73 sqM) Glucose 109 H (74-99) mg/dL Calcium 8.7 (8.4-10.2) mg/dL Magnesium (1.6-2.3) mg/dL Total Bilirubin 0.5 (0.2-1.3) mg/dL AST 28 (14-36) U/L ALT 15 (4-34) U/L Alkaline Phosphatase 78 (38-126) U/L Troponin I (0.000-0.034) ng/mL Total Protein 6.5 (6.3-8.2) g/dL Albumin 3.9 (3.5-5.0) g/dL 04/17/19 04/17/19 Range/Units 20:46 20:46 WBC (3.8-10.6) k/uL RBC (3.80-5.40) m/uL Hgb (11.4-16.0) gm/dL Hct (34.0-46.0) % MCV (80.0-100.0) fL MCH (25.0-35.0) pg MCHC (31.0-37.0) g/dL RDW (11.5-15.5) % Plt Count (150-450) k/uL Neutrophils % % Lymphocytes % % Monocytes % % Eosinophils % % Basophils % % Neutrophils # (1.3-7.7) k/uL Lymphocytes # (1.0-4.8) k/uL Monocytes # (0-1.0) k/uL Eosinophils # (0-0.7) k/uL Basophils # (0-0.2) k/uL Poikilocytosis PT (9.0-12.0) sec INR (<1.2) APTT (22.0-30.0) sec Sodium (137-145) mmol/L Potassium (3.5-5.1) mmol/L Chloride (98-107) mmol/L Carbon Dioxide (22-30) mmol/L Anion Gap mmol/L BUN (7-17) mg/dL Creatinine (0.52-1.04) mg/dL Est GFR (CKD-EPI)AfAm (>60 ml/min/1.73 sqM) Est GFR (CKD-EPI)NonAf (>60 ml/min/1.73 sqM) Glucose (74-99) mg/dL Calcium (8.4-10.2) mg/dL Magnesium 2.0 (1.6-2.3) mg/dL Total Bilirubin (0.2-1.3) mg/dL AST (14-36) U/L ALT (4-34) U/L Alkaline Phosphatase (38-126) U/L Troponin I <0.012 (0.000-0.034) ng/mL Total Protein (6.3-8.2) g/dL Albumin (3.5-5.0) g/dL - Radiology Data Radiology results: report reviewed (Noncontrast head CT is negative) Disposition Clinical Impression: Hypertension, Hypokalemia Disposition: ADMITTED IP TO THIS [facility] Condition: Stable Is patient prescribed a controlled substance at d/c from ED?: No Time of Disposition: 00:32
[2019-04-17 21:26] LABS: ALT 15 U/L (4-34); AST 28 U/L (14-36); African American GFR (CKD) >90 (>60 ml/min/1.73 sqM); Albumin 3.9 g/dL (3.5-5.0); Alkaline Phosphatase 78 U/L (38-126); Anion Gap 6 mmol/L; Blood Urea Nitrogen 11 mg/dL (7-17); Calcium 8.7 mg/dL (8.4-10.2); Carbon Dioxide 36 mmol/L (22-30); Chloride 101 mmol/L (98-107); Glucose 109 mg/dL (74-99); Non-African American GFR(CKD) >90 (>60 ml/min/1.73 sqM); Sodium 143 mmol/L (137-145); Total Bilirubin 0.5 mg/dL (0.2-1.3); Total Protein 6.5 g/dL (6.3-8.2)
--- NOTE | 2019-04-17 21:37 | CT ---
EXAMINATION TYPE: CT brain wo con DATE OF EXAM: 04/17/2019 COMPARISON: 03/16/2019 HISTORY: Headache and hypertension. History of aneurysm. CT DLP: 1064.4 mGycm Automated exposure control for dose reduction was used. Ventricles have normal size. There is no mass effect nor midline shift. There is no sign of intracran ial hemorrhage. The calvarium is intact. There is surgical clip in the anterior interhemispheric fiss ure. IMPRESSION: Negative head CT scan. There is clearing of the subarachnoid hemorrhage compared to old exam.
[2019-04-17 22:09] LABS: Potassium 2.4 mmol/L (3.5-5.1)
[2019-04-17] MEDS ORDERED: POTASSIUM CHLORIDE ER 20 MEQ TAB.ER PO STA (22:13)
[2019-04-18] MEDS ORDERED: POTASSIUM CHLORIDE 10 MEQ in WATER FOR INJECTION 1 100ML.BAG IVPB SCH (04:00)
[2019-04-18] MEDS: LORazepam 0.5 MG TAB PO SCH ×2 (04:30→21:31)
--- NOTE | 2019-04-18 04:36 | P.HPIM ---
History of Present Illness H&P Date: 04/18/19 Chief Complaint: uncontrolled blood pressure its worth saying that patient is very poor historian, she keeps adding bits and pieces of her past medical history with poor insight. It seems like she needs to be asked multiple times in different ways with explanation until you get the right answer. for example, she would say that her blood pressure problems just started after the ruptured aneurysm event a month ago and that since then it has been poorly controlled. however it turned out later that she had blood pressure problems for many years now and its not clear to me how that was managed , as she initially said that she does not have a PCP, then she claimed that she saw Dr goddard once after this new brain aneurysm event however she would not consider him her pcp and would like to find a different one. then later on, it appeared that he is her PCP for many years now. 63 year old female with recent ruptured brain aneurysm one month ago. and poorly controlled hypertension patient comes in today due to poorly controlled hypertension , initially claimed that hypertension is a new problem since the ruptured brain aneurysm one month ago that was treated with coiling at [facility] , but it seems to be a chronic problem for many years now. She claims that her neurointerventionist started her on some BP meds and discharged to [facility] for rehab, at rehab she claims that her BP readings were in the 200 range for systolic BP, but she was told to follow p with PCP for further management , she was discharged 2 weeks ago , and saw a PCP (dr Goddard ) about 10 days ago , who she claims did not adjust her meds and wanted to see her again and give her current medications more time to work. she apparently was not happy with that decision, and wanted to see a different doctor , meanwhile her blood pressure readings at home continued to be in the 190s range and at times above 200 for systolic blood pressure , for which she decided to come to the hospital now to get it under control . she denies any new focal neuro deficits or any other new complaints. Yet, she reports off and on headaches since 03/15/2019 when she had the ruptured aneurysm along with numbness in her hands since the event. otherwise denies any chest pain or trouble breathing, denies any changes in her speech nausea or vomiting. in the ED, she was given labetalol , CT of the brain showed no bleeding, and labs showed low potassium. i reviewed patient meds with her, she claims that she has been taking fludrocortison three times aday since the ruptured aneurysm and was told to continue this for one month only for the aneurysm. along with lisinopril and metoprolol as new medications for her. she also takes Keflex for 1 week now for UTI. currently denies any symptoms of UTI. Review of Systems Pertinent positives as noted in HPI. 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 many years ago Past Medical History Past Medical History: Hypertension, Thyroid Disorder Additional Past Medical History / Comment(s): VERTIGO, MENIERES DISEASE, HYPOGLY CEMIA, History of Any Multi-Drug Resistant Organisms: None Reported Past Surgical History: Hysterectomy, Orthopedic Surgery Additional Past Surgical History / Comment(s): Left nephrectomy, brain aneurysm with coil, Past Anesthesia/Blood Transfusion Reactions: No Reported Reaction Past Psychological History: Anxiety, Depression, Panic Disorder Smoking Status: Never smoker Past Alcohol Use History: None Reported Past Drug Use History: None Reported - Past Family History Mother Family Medical History: Hypertension Father Family Medical History: Diabetes Mellitus Medications and Allergies Home Medications Medication Instructions Recorded Confirmed Type Aspirin EC [Ecotrin Low Dose] 81 mg PO DAILY 09/20/14 04/18/19 History Levothyroxine Sodium [Tirosint] 75 mcg PO DAILY 09/20/14 04/18/19 History Ascorbic Acid [Vitamin C] 1,000 mg PO DAILY 09/21/14 04/18/19 History Calcium Carbonate/Vitamin D3 1 tab PO DAILY 09/21/14 04/18/19 History [Calcium 600-Vit D3 400 Tablet] Multivitamins, Thera [Multivitamin 1 tab PO DAILY 09/21/14 04/18/19 History (formulary)] cycloSPORINE [Restasis] 1 drop BOTH EYES BID 09/21/14 04/18/19 History Metoprolol Tartrate [Lopressor] 50 mg PO BID 7 Days #14 tablet 04/04/19 04/18/19 Rx Cephalexin [Keflex] 500 mg PO Q12HR 04/18/19 04/18/19 History Famotidine [Pepcid] 20 mg PO DAILY 04/18/19 04/18/19 History Fludrocortisone [Florinef] 0.1 mg PO TID 04/18/19 04/18/19 History LORazepam [Ativan] 0.5 mg PO HS 04/18/19 04/18/19 History Lisinopril 40 mg PO DAILY 04/18/19 04/18/19 History Simvastatin [Zocor] 10 mg PO HS 04/18/19 04/18/19 History Allergies Allergy/AdvReac Type Severity Reaction Status Date / Time clarithromycin [From Biaxin] Allergy Unknown Verified 04/17/19 20:32 Iodinated Contrast Media Allergy Unknown Verified 04/17/19 20:32 [Iodinated Contrast Media - IV Dye] levofloxacin [From Levaquin] Allergy Unknown Verified 04/17/19 20:32 methylprednisolone Allergy Rash/Hives Verified 04/18/19 01:12 [From Medrol] moxifloxacin HCl Allergy Unknown Verified 04/17/19 20:32 [From Avelox] Sulfa (Sulfonamide Allergy Unknown Verified 04/17/19 20:32 Antibiotics) doxycycline AdvReac Headache & Verified 04/17/19 20:32 Vomitting nitrofurantoin AdvReac Headache & Verified 04/17/19 20:32 [From Macrobid] Vomitting nitrofurantoin AdvReac Headache & Verified 04/17/19 20:32 macrocrystalline Vomitting [From Macrobid] Physical Exam Vitals: Vital Signs Temp Pulse Pulse Resp BP BP Pulse Ox 04/18/19 02:10 97.7 F 70 16 184/82 98 04/18/19 01:12 98.1 F 81 15 157/74 98 04/17/19 23:43 98.2 F 92 17 178/72 99 04/17/19 23:10 82 12 177/83 98 04/17/19 23:00 81 35 H 174/76 97 04/17/19 22:50 75 16 174/76 96 04/17/19 22:40 78 16 172/75 97 04/17/19 22:30 82 18 209/89 100 04/17/19 22:20 69 20 209/89 97 04/17/19 22:10 66 16 215/89 99 04/17/19 22:00 72 20 195/79 96 04/17/19 21:40 69 18 214/92 95 04/17/19 21:30 80 15 196/99 99 04/17/19 21:29 75 16 199/96 99 04/17/19 20:28 98.2 F 69 18 220/103 99 Intake and Output 04/17/19 04/17/19 04/18/19 14:59 22:59 06:59 Other: Weight 58.967 kg 58.967 kg Constitutional: No acute distress, conversant, pleasant Eyes: Anicteric sclerae, moist conjunctiva, no lid-lag Pupils equal round reactive to light ENMT: NC/AT Oropharynx clear, no erythema, exudates Neck: Supple, FROM, no masses, or JVD No carotid bruits No thyromegaly Lungs: Clear to auscultation Clear to percussion Normal respiratory effort, no accessory muscle use Cardiovascular: Heart regular in rate and rhythm, systoli c murmur , No gallops, or rubs No peripheral edema Abdominal: Soft Nontender, no guarding, rebound or rigidity Abdomen moving with respiration Normoactive bowel sounds No hepatomegaly, No splenomegaly No palpable mass No abdominal wall hernia noted Skin: Normal temperature, tone, texture, turgor No induration No subcutaneous nodules No rash, lesions No ulcers Extremities: No digital cyanosis No clubbing Pedal pulses intact and symmetrical Radial pulses intact and symmetrical No calf tenderness Psychiatric: Alert and oriented to person, place and time Appropriate affect fair judgement Neuro Muscles Strength 5/5 in all 4 extremities Sensation to light touch grossly present throughout Cranial nerves II-XII grossly intact No focal sensory deficits Lymphatics: no palpable cervical or supraclavicular , or inguinal lymph nodes Results CBC & Chem 7: 04/17/19 20:46 04/17/19 20:46 Labs: Abnormal Lab Results - Last 24 Hours (Table) 04/17/19 Range/Units 20:46 Potassium 2.4 L* (3.5-5.1) mmol/L Carbon Dioxide 36 H (22-30) mmol/L Glucose 109 H (74-99) mg/dL Thrombosis Risk Factor Assmnt - Choose All That Apply Any of the Below Risk Factors Present?: Yes Other Risk Factors: Yes Each Risk Factor Represents 2 Points: Age 61-74 years Thrombosis Risk Factor Assessment Total Risk Factor Score: 2 Thrombosis Risk Factor Assessment Level: Low Risk Assessment and Plan Plan: patient is taking Fludrocortisone (she claims it was started for her recent ru ptured aneurysm and supposed to take it for one month) this is definitely playing a role into uncontrolled hypertension , and hypokalemia . this medication can not be stopped abruptly. need to obtain records to understand its indication. hypertensive urgency goal to lower MAP by 25% initially , from 142 to 106. continue home meds add clonidine PRN for systolic above 180 or diastolic blood pressure above 110 add Amlodipine 5 mg daily starting in the morning of Apr 18 avoid diuretics at this point , until potassium is controlled continue with aspirin continue with fludrocortison neurochecks hypokalemia , unknown underlying cause , most likely secondary to her high dose of fludrocortisone (patient denies any history of hypokalemia) replace PO (patient refusing IV replacement ) magnesium is within normal limits recent UTI , treated with keflex repeat urinalysis and culture stop ABx check renal artery US doppler , patient has one kidney DVT PPX , heparin sc tid anxiety resume ativan CODE STATUS:full code Discussed with: Patient, ER, RN Anticipated length of stay < than [address]: home A total of 60 minutes was spent on the care of this complex patient more than 50% of the time was spent in counseling and care coordination.
[2019-04-18] MEDS ORDERED: POTASSIUM CHLORIDE ER 20 MEQ TAB.ER PO STA (04:41)
[2019-04-18] MEDS: LEVOTHYROXINE 75 MCG TAB PO SCH (04:59)
[2019-04-18] MEDS: cloNIDine HCL 0.2 MG TAB PO PRN ×2 (05:31→16:27)
[2019-04-18 06:32] LABS: Appearance,Urine Clear (Clear); Bilirubin,Urine Negative (Negative); Blood,Urine Negative (Negative); Color,Urine Colorless; Glucose,Urine (UA) Negative (Negative); Ketones,Urine Negative (Negative); Leukocyte Esterase,Urine Negative (Negative); Nitrite,Urine Negative (Negative); Protein,Urine Negative (Negative); Specific Gravity,Urine 1.005 (1.001-1.035); Urobilinogen,Urine <2.0 mg/dL (<2.0)
[2019-04-18] MEDS ORDERED: amLODIPine 5 MG TAB PO SCH (09:00)
[2019-04-18] MEDS ORDERED: LISINOPRIL 20 MG TAB PO SCH (09:00)
[2019-04-18] MEDS: ASPIRIN 81 MG PO SCH (09:23)
[2019-04-18] MEDS: cycloSPORINE 0.05% OPHTH 0.4 ML DROPERETTE BOTH EYES SCH ×2 (09:24→21:30)
[2019-04-18] MEDS: HEPARIN SODIUM,PORCINE 5,000 UNIT/ML 1 ML VIAL SQ SCH ×2 (09:24→15:06)
[2019-04-18] MEDS: FLUDROCORTISONE 0.1 MG TAB PO SCH ×2 (09:24→15:09)
[2019-04-18] MEDS: FAMOTIDINE 20 MG TAB PO SCH (09:24)
[2019-04-18] MEDS: METOPROLOL TARTRATE 50 MG TAB PO SCH ×2 (09:24→21:31)
--- NOTE | 2019-04-18 09:28 | US ---
EXAMINATION TYPE: US renal doppler DATE OF EXAM: 04/18/2019 COMPARISON: NONE CLINICAL HISTORY: resistant hypertension . MEASUREMENTS: RENAL SIZE: Rt Kidney: 12.1 x 4.7 x 4.6cm Lt Kidney: surgically absent RESISTANCE INDEX Right: 0.61 Left: surgically absent RA/AO RATIO (< 3.5 ) Right: 5.0 Left: surgically absent RA VELOCITY ( < 180 cm/s) Right: 594.2 cm/s Left: surgically absent There is elevated velocity at the proximal renal artery suggestive of renal artery stenosis. Otherwis e unremarkable study. IMPRESSION: Markedly elevated velocity of the right renal artery suggesting renal arterial stenosis. Left kidney is surgically absent.
[2019-04-18] MEDS: POTASSIUM CHLORIDE ER 20 MEQ TAB.ER PO SCH ×2 (13:29→15:09)
--- NOTE | 2019-04-18 18:07 | P.PN ---
Progress Note - Text Progress Note Date: 04/18/19 Patient was seen. Admitted for hypertensive urgency. Unknown reasons why she is on fludrocortisone. Patient reports dry mouth and fatigue. She denies any chest pain, shortness of breath or palpitations. No nausea or vomiting. No fever or chills. Patient is in no acute distress. Hypertensive urgency Renal artery stenosis Severe hypokalemia Hypothyroidism Current blood pressure is 188/81. She is on lisinopril and metoprolol. Renal artery duplex came back with right-sided renal stenosis. Plans to consult nephrology. Her potassium was replaced orally. Repeat potassium continues to be low. Patient is refusing IV potassium. She is on telemetry monitoring. Synthroid has been resumed for hypothyroidism. She is pending clinical improvement. Likely DC in 1-2 days.
[2019-04-18] MEDS ORDERED: hydrALAZINE HCL 25 MG TAB PO ONE (21:00)
[2019-04-18] MEDS: ATORVASTATIN 10 MG TAB PO SCH (21:30)
[2019-04-19] MEDS: HEPARIN SODIUM,PORCINE 5,000 UNIT/ML 1 ML VIAL SQ SCH ×4 (00:31→23:38)
[2019-04-19] MEDS: LEVOTHYROXINE 75 MCG TAB PO SCH (06:16)
[2019-04-19] MEDS: amLODIPine 10 MG TAB PO SCH (08:20)
[2019-04-19] MEDS: ASPIRIN 81 MG PO SCH (08:20)
[2019-04-19] MEDS: FAMOTIDINE 20 MG TAB PO SCH (08:20)
[2019-04-19] MEDS: METOPROLOL TARTRATE 50 MG TAB PO SCH ×2 (08:20→20:58)
[2019-04-19] MEDS: cycloSPORINE 0.05% OPHTH 0.4 ML DROPERETTE BOTH EYES SCH ×2 (08:21→20:49)
[2019-04-19 08:48] LABS: Basophils # (A) 0.1 k/uL (0-0.2); Basophils % (A) 1 %; Eosinophils # (A) 0.2 k/uL (0-0.7); Eosinophils % (A) 3 %; HCT 35.4 % (34.0-46.0); HGB 11.5 gm/dL (11.4-16.0); Lymphocytes # (A) 1.5 k/uL (1.0-4.8); Lymphocytes % (A) 27 %; MCH 29.6 pg (25.0-35.0); MCHC 32.6 g/dL (31.0-37.0); MCV 90.8 fL (80.0-100.0); Mean Platelet Volume 7.4; Monocytes # (A) 0.5 k/uL (0-1.0); Monocytes % (A) 9 %; Neutrophils # (A) 3.3 k/uL (1.3-7.7); Neutrophils % (A) 58 %; Platelet Count 237 k/uL (150-450); WBC 5.7 k/uL (3.8-10.6)
[2019-04-19] MEDS ORDERED: FLUDROCORTISONE 0.1 MG TAB PO SCH (09:00)
[2019-04-19 09:17] LABS: ALT 15 U/L (4-34); AST 27 U/L (14-36); African American GFR (CKD) >90 (>60 ml/min/1.73 sqM); Albumin 3.5 g/dL (3.5-5.0); Alkaline Phosphatase 72 U/L (38-126); Anion Gap 5 mmol/L; Blood Urea Nitrogen 8 mg/dL (7-17); Calcium 8.6 mg/dL (8.4-10.2); Carbon Dioxide 36 mmol/L (22-30); Chloride 102 mmol/L (98-107); Glucose 102 mg/dL (74-99); Non-African American GFR(CKD) >90 (>60 ml/min/1.73 sqM); Potassium 3.1 mmol/L (3.5-5.1); Sodium 143 mmol/L (137-145); Total Bilirubin 0.6 mg/dL (0.2-1.3)
[2019-04-19] MEDS: hydrALAZINE HCL 50 MG TAB PO SCH ×2 (10:03→23:38)
[2019-04-19] MEDS: POTASSIUM CHLORIDE ER 20 MEQ TAB.ER PO SCH ×2 (10:03→11:24)
--- NOTE | 2019-04-19 11:57 | P.DS ---
Providers Date of admission: 04/18/19 00:32 Expected date of discharge: 04/19/19 Attending physician: Najma Penaloza MD Consults: 04/18/19 18:03 Consult Physician Stat Consulting Provider: Viviane Ruiz Consult Reason/Comments: Renal artery stenosis Do you want consulting provider notified?: Yes 04/18/19 19:11 Consult Physician Routine Consulting Provider: Vernon Roberts Consult Reason/Comments: renal artery stenosis Do you want consulting provider notified?: Yes, Notify in am Primary care physician: Stated None Hospital Course: 63-year-old female with PMH of uncontrolled hypertension, hypothyroidism, ruptured brain aneurysm post coiling at [facility] presents the ED for elevated blood pressure. Patient reported systolic pressure in the 200s at home. She had no complaints on admission. Blood pressure in the ED was 184/82. Patient was given labetalol IV in the ED. Brain CT was negative. She was resumed on her home medications of metoprolol and lisinopril. Renal duplex was ordered which showed absent left kidney and moderate renal stenosis. BMP also showed that she was severely hypokalemic at 2.4 on admission. Nephrology was consulted and hydralazine was added for better blood pressure control. Lisinopril was discontinued due to renal artery stenosis. Her potassium was replaced by mouth. Vascular surgery was consulted and recommended outpatient follow-up with interventional nephrology if warranted. Patient was seen and examined. No acute events overnight. Patient denies any chest pain, shortness of breath or palpitations. No nausea or vomiting. No fever or chills. General: [non toxic], [no distress], [appears at stated age] Derm: [warm], [dry] Head: [atraumatic], [normocephalic], [symmetric] Eyes: [EOMI], [no lid lag], [anicteric sclera] Mouth: [no lip lesion], [mucus membranes moist] Cardiovascular: [S1S2 reg], [no murmur], [positive DP pulse bilateral] Lungs: [CTA bilateral], [no rhonchi, no rales] , [no accessory muscle use] Abdominal: [soft], [ nontender to palpation], [no guarding], [no appreciable organomegaly] Ext: [no gross muscle atrophy], [no edema], [no contractures] Neuro: [no focal neuro deficits] Psych: [Alert], [oriented], [appropriate affect] Hypertensive urgency Renal artery stenosis Severe hypokalemia Hypothyroidism Current blood pressure is 131/68. Lisinopril was discontinued yesterday due to her renal artery stenosis. Amlodipine was increased, she was continued on metoprolol and nephrology added hydralazine. I discussed the case with vascular surgery Dr. Roberts who suggested outpatient follow-up for interventional nephrology if warranted. Her potassium this morning is 3.1 which is improved from 2.4 on admission. We will replace her potassium orally and recheck prior to discharge. Plans to discharge patient home today with close follow-up with PCP (discussed with social work, list of PCPs provided) and nephrology. Pertinent Studies: Brain CT, renal ultrasound Patient Condition at Discharge: Stable Plan - Discharge Summary New Discharge Prescriptions: New hydrALAZINE HCL [Apresoline] 50 mg PO BID #60 tab Fludrocortisone [Florinef] 0.1 mg PO BID tab Metoprolol Tartrate [Lopressor] 50 mg PO BID #60 tab amLODIPine [Norvasc] 10 mg PO DAILY #30 tab Continue Aspirin EC [Ecotrin Low Dose] 81 mg PO DAILY cycloSPORINE [Restasis] 1 drop BOTH EYES BID Calcium Carbonate/Vitamin D3 [Calcium 600-Vit D3 400 Tablet] 1 tab PO DAILY Ascorbic Acid [Vitamin C] 1,000 mg PO DAILY Multivitamins, Thera [Multivitamin (formulary)] 1 tab PO DAILY Metoprolol Tartrate [Lopressor] 50 mg PO BID 7 Days #14 tablet Famotidine [Pepcid] 20 mg PO DAILY Simvastatin [Zocor] 10 mg PO HS B,C/Folic/Zinc/Copper Ox/Vit E [Stress B-Complex Tablet] 1 tab PO DAILY clonazePAM [KlonoPIN] 0.5 mg PO HS PRN PRN Reason: Insomnia Levothyroxine Sodium [Synthroid] 75 mcg PO DAILY Vitamin E (Dl,Tocopheryl Acet) [Vitamin E] 400 unit PO DAILY Discontinued Cephalexin [Keflex] 500 mg PO Q12HR Fludrocortisone [Florinef] 0.1 mg PO TID Lisinopril [Zestril] 5 mg PO BID Discharge Medication List Aspirin EC [Ecotrin Low Dose] 81 mg PO DAILY 09/20/14 [History] Ascorbic Acid [Vitamin C] 1,000 mg PO DAILY 09/21/14 [History] Calcium Carbonate/Vitamin D3 [Calcium 600-Vit D3 400 Tablet] 1 tab PO DAILY 09/21/14 [History] Multivitamins, Thera [Multivitamin (formulary)] 1 tab PO DAILY 09/21/14 [History] cycloSPORINE [Restasis] 1 drop BOTH EYES BID 09/21/14 [History] Metoprolol Tartrate [Lopressor] 50 mg PO BID 7 Days #14 tablet 04/04/19 [Rx] B,C/Folic/Zinc/Copper Ox/Vit E [Stress B-Complex Tablet] 1 tab PO DAILY 04/18/19 [History] Famotidine [Pepcid] 20 mg PO DAILY 04/18/19 [History] Levothyroxine Sodium [Synthroid] 75 mcg PO DAILY 04/18/19 [History] Simvastatin [Zocor] 10 mg PO HS 04/18/19 [History] Vitamin E (Dl,Tocopheryl Acet) [Vitamin E] 400 unit PO DAILY 04/18/19 [History] clonazePAM [KlonoPIN] 0.5 mg PO HS PRN 04/18/19 [History] Fludrocortisone [Florinef] 0.1 mg PO BID tab 04/19/19 [Rx] Metoprolol Tartrate [Lopressor] 50 mg PO BID #60 tab 04/19/19 [Rx] amLODIPine [Norvasc] 10 mg PO DAILY #30 tab 04/19/19 [Rx] hydrALAZINE HCL [Apresoline] 50 mg PO BID #60 tab 04/19/19 [Rx] Follow up Appointment(s)/Referral(s): None,Stated [Primary Care Provider] - 1-2 days Viviane Ruiz MD [STAFF PHYSICIAN] - 1 Week Activity/Diet/Wound Care/Special Instructions: Providers Date of admission: 04/18/19 00:32 Expected date of discharge: 04/19/19 Attending physician: Najma Penaloza MD Consults: 04/18/19 18:03 Consult Physician Stat Consulting Provider: Viviane Ruiz Consult Reason/Comments: Renal artery stenosis Do you want consulting provider notified?: Yes 04/18/19 19:11 Consult Physician Routine Consulting Provider: Vernon Roberts Consult Reason/Comments: renal artery stenosis Do you want consulting provider notified?: Yes, Notify in am Primary care physician: Stated None Hospital Course: 63-year-old female with PMH of uncontrolled hypertension, hypothyroidism, ruptured brain aneurysm post coiling at [facility] presents the ED for elevated blood pressure. Patient reported systolic pressure in the 200s at home. She had no complaints on admission. Blood pressure in the ED was 184/82. Patient was given labetalol IV in the ED. Brain CT was negative. She was resumed on her home medications of metoprolol and lisinopril. Renal duplex was ordered which showed absent left kidney and moderate renal stenosis. BMP also showed that she was severely hypokalemic at 2.4 on admission. Nephrology was consulted and hydralazine was added for better blood pressure control. Lisinopril was discontinued due to renal artery stenosis. Her potassium was replaced by mouth. Vascular surgery was consulted and recommended outpatient follow-up with interventional nephrology if warranted. Patient was seen and examined. No acute events overnight. Patient denies any chest pain, shortness of breath or palpitations. No nausea or vomiting. No fever or chills. General: [non toxic], [no distress], [appears at stated age] Derm: [warm], [dry] Head: [atraumatic], [normocephalic], [symmetric] Eyes: [EOMI], [no lid lag], [anicteric sclera] Mouth: [no lip lesion], [mucus membranes moist] Cardiovascular: [S1S2 reg], [no murmur], [positive DP pulse bilateral] Lungs: [CTA bilateral], [no rhonchi, no rales] , [no accessory muscle use] Abdominal: [soft], [ nontender to palpation], [no guarding], [no appreciable organomegaly] Ext: [no gross muscle atrophy], [no edema], [no contractures] Neuro: [no focal neuro deficits] Psych: [Alert], [oriented], [appropriate affect] Hypertensive urgency Renal artery stenosis Severe hypokalemia Hypothyroidism Current blood pressure is 131/68. Lisinopril was discontinued yesterday due to her renal artery stenosis. Amlodipine was increased, she was continued on metoprolol and nephrology added hydralazine. I discussed the case with vascular surgery Dr. Roberts who suggested outpatient follow-up for interventional nephrology if warranted. Her potassium this morning is 3.1 which is improved from 2.4 on admission. We will replace her potassium orally and recheck prior to discharge. Patient is on Florinef which is probably contributing to her hypokalemia and hypertension. This will need to be tapered slowly by her PCP. She has been instructed to go from her 3 times a day dosing to twice a day dosing. Plans to discharge patient home today with close follow-up with PCP (discussed with social work, list of PCPs provided) and nephrology. Pertinent Studies: Brain CT, renal ultrasound Patient Condition at Discharge: Stable Plan - Discharge Summary New Discharge Prescriptions: New hydrALAZINE HCL [Apresoline] 50 mg PO BID #60 tab Fludrocortisone [Florinef] 0.1 mg PO BID tab Metoprolol Tartrate [Lopressor] 50 mg PO BID #60 tab amLODIPine [Norvasc] 10 mg PO DAILY #30 tab Continue Aspirin EC [Ecotrin Low Dose] 81 mg PO DAILY cycloSPORINE [Restasis] 1 drop BOTH EYES BID Calcium Carbonate/Vitamin D3 [Calcium 600-Vit D3 400 Tablet] 1 tab PO DAILY Ascorbic Acid [Vitamin C] 1,000 mg PO DAILY Multivitamins, Thera [Multivitamin (formulary)] 1 tab PO DAILY Metoprolol Tartrate [Lopressor] 50 mg PO BID 7 Days #14 tablet Famotidine [Pepcid] 20 mg PO DAILY Simvastatin [Zocor] 10 mg PO HS B,C/Folic/Zinc/Copper Ox/Vit E [Stress B-Complex Tablet] 1 tab PO DAILY clonazePAM [KlonoPIN] 0.5 mg PO HS PRN PRN Reason: Insomnia Levothyroxine Sodium [Synthroid] 75 mcg PO DAILY Vitamin E (Dl,Tocopheryl Acet) [Vitamin E] 400 unit PO DAILY Discontinued Cephalexin [Keflex] 500 mg PO Q12HR Fludrocortisone [Florinef] 0.1 mg PO TID Lisinopril [Zestril] 5 mg PO BID Discharge Medication List Aspirin EC [Ecotrin Low Dose] 81 mg PO DAILY 09/20/14 [History] Ascorbic Acid [Vitamin C] 1,000 mg PO DAILY 09/21/14 [History] Calcium Carbonate/Vitamin D3 [Calcium 600-Vit D3 400 Tablet] 1 tab PO DAILY 09/21/14 [History] Multivitamins, Thera [Multivitamin (formulary)] 1 tab PO DAILY 09/21/14 [History] cycloSPORINE [Restasis] 1 drop BOTH EYES BID 09/21/14 [History] Metoprolol Tartrate [Lopressor] 50 mg PO BID 7 Days #14 tablet 04/04/19 [Rx] B,C/Folic/Zinc/Copper Ox/Vit E [Stress B-Complex Tablet] 1 tab PO DAILY 04/18/19 [History] Famotidine [Pepcid] 20 mg PO DAILY 04/18/19 [History] Levothyroxine Sodium [Synthroid] 75 mcg PO DAILY 04/18/19 [History] Simvastatin [Zocor] 10 mg PO HS 04/18/19 [History] Vitamin E (Dl,Tocopheryl Acet) [Vitamin E] 400 unit PO DAILY 04/18/19 [History] clonazePAM [KlonoPIN] 0.5 mg PO HS PRN 04/18/19 [History] Fludrocortisone [Florinef] 0.1 mg PO BID tab 04/19/19 [Rx] Metoprolol Tartrate [Lopressor] 50 mg PO BID #60 tab 04/19/19 [Rx] amLODIPine [Norvasc] 10 mg PO DAILY #30 tab 04/19/19 [Rx] hydrALAZINE HCL [Apresoline] 50 mg PO BID #60 tab 04/19/19 [Rx] Follow up Appointment(s)/Referral(s): None,Stated [Primary Care Provider] - 1-2 days Viviane Ruiz MD [STAFF PHYSICIAN] - 1 Week Activity/Diet/Wound Care/Special Instructions: Diet: Low-salt Follow-up PCP within 3 days of discharge. Follow-up with nephrology within 1 week of discharge. Take all medications as advised. Come back to the ED for chest pain, shortness of breath, palpitations, dizziness or severe headaches. Diet: Low-salt Follow-up PCP within 3 days of discharge. Follow-up with nephrology within 1 week of discharge. Repeat BMP in 3 days to be followed up with PCP. Take all medications as advised. Come back to the ED for chest pain, shortness of breath, palpitations, dizziness or severe headaches. Discharge Disposition: HOME SELF-CARE
--- NOTE | 2019-04-19 13:00 | CONS ---
CONSULTATION REASON FOR CONSULT: Uncontrolled hypertension and possible renal artery stenosis. HISTORY OF PRESENT ILLNESS: The patient is a 63-year-old female with history of recent surgery for a ruptured brain aneurysm at [facility] following which patient was at rehab at [facility]. Patient states that her blood pressure was elevated at that time and her systolic blood pressure had been running around 190 mmHg. Prior to the surgery, patient states that she was told her blood pressure is elevated and had been slightly on the higher side, but was not started on any particular medications. Patient does have a history of left nephrectomy for nonfunctioning kidney, repeated infections and a history of previous urological procedures on that kidney. The surgery was done in the . Since then, patient has not had any issues with her kidney and her blood pressure which had been initially elevated prior to the nephrectomy had improved significantly. Patient's creatinine is currently at 0.5 and 0.6 mg/dL. Her potassium was significantly low at 2.4 on initial admission. Patient was maintained on Florinef as well. After her recent surgery for the brain aneurysm, patient was placed on Lopressor, Norvasc, and hydralazine. She was also noted to be on Florinef twice a day and she was started on Vasotec post admission to this hospital yesterday. Yesterday, patient was complaining of tongue swelling and weird sensation in her mouth and throat and therefore the way Vasotec was discontinued. She also complained of excessive dry mouth and fatigue and she contributed that to possibly to the clonidine and therefore I held the clonidine yesterday. Blood pressure seems to be slightly better controlled now with systolic blood pressure down in the 130s from 197 mmHg on initial admission. It appears that patient was responding very well to the clonidine. Yesterday, she also had an ultrasound of her kidney performed which showed evidence of elevated resistive index suggestive of underlying right renal artery stenosis. However, this is not an accurate test to rule out underlying renal artery stenosis. Overall, patient states she is feeling better today. Her sensation of tongue swelling seems to have improved. PAST MEDICAL HISTORY: Significant for hypertension in the remote past, which improved after the left nephrectomy and blood pressure had been staying slightly high prior to her recent cerebrovascular surgery, but was not started on any medications. Patient also has hypothyroidism and vertigo and a history of hypoglycemia. PAST SURGICAL HISTORY: Left nephrectomy, recent surgery for brain aneurysm with coil placement, hysterectomy. SOCIAL HISTORY: Negative for smoking, drug abuse or alcohol abuse. MEDICATIONS: Prior to admission included aspirin, Synthroid, Lopressor, hydralazine, calcium, vitamin C, Keflex, Pepcid, Florinef, Ativan, Zocor, and lisinopril. ALLERGIES: Multiple include IV DYE, LEVAQUIN, AVELOX, DOXYCYCLINE, MACROBID. REVIEW OF SYSTEMS: As per HPI. Other systems negative. PHYSICAL EXAMINATION: On examination, patient is comfortable, awake, not in any acute distress. Blood pressure was this morning 124/56, heart rate 74 per minute. She is afebrile. Examination of the heart S1, S2. Examination of the lungs, bilateral breath sounds are heard. Abdomen is soft, non-tender. Examination of the lower extremities shows no significant edema. [employer] exam grossly intact. LABS: Show sodium 143, potassium 3.1, chloride 102, CO2 is 36, BUN 8, serum creatinine 0.64. UA is completely benign, no evidence of blood or protein and hemoglobin 11.5, white cell count 5.7. ASSESSMENT: 1. Uncontrolled hypertension. Currently improved. Etiology includes possible underlying renal about renal artery stenosis as a possible underlying secondary cause as well as the Florinef which has contributed to the uncontrolled hypertension. Agree with this decreasing the dose of Florinef and eventually we can discontinue it. Regarding the choice of medications, I agree with discontinuation of Vasotec given the symptoms of possible tongue swelling and weird sensation in the throat. However, if the patient did not have such an allergic reaction, we would have continued with the LEONCIO inhibitor/angiotensin receptor blockers given the normal renal function. This will help to the a hyperaldosteronism, which can be associated with this condition. 2. Hypokalemia secondary to Florinef and hyperaldosteronism, which is mainly secondary, currently replaced and improved. 3. History of left nephrectomy. 4. Possible right renal artery stenosis. However, definitive testing would be an angiogram which we can perform prior to her discharge as the patient is allergic to dye and she will need prep for that. PLAN: I will continue with the hydralazine and I will decrease the Florinef further. Continue with Norvasc as well and hold off on the clonidine and the LEONCIO inhibitors for now. Consider switching the Lopressor to Coreg down the road. Check TSH if not ordered recently and patient will need followup as outpatient. Replace potassium aggressively. Magnesium is not low. Thank you for this consultation. Will continue to follow the patient with you during her hospitalization. SHONA / IJN: [id number] /
[2019-04-19] MEDS ORDERED: diphenhydrAMINE 50 MG/ML 1 ML VIAL IVP STA (13:29)
[2019-04-19] MEDS ORDERED: FAMOTIDINE 20 MG/2 ML VIAL IV ONE (13:32)
[2019-04-19] MEDS ORDERED: methylPREDNISolone SOD SUCCI 125 MG/2 ML VIAL IV STA (13:46)
[2019-04-19 14:47] VITALS: RESP 16
--- NOTE | 2019-04-19 18:41 | CT ---
EXAMINATION TYPE: CT angio renal artery DATE OF EXAM: 04/19/2019 COMPARISON: None HISTORY: Right renal artery stenosis and hypertension. CT DLP: 421.1 mGycm Automated exposure control for dose reduction was used. CONTRAST: Performed without and with IV Contrast, patient injected with 100ml mL of Isovue 370. There are 3-D post processed images. There is mild subsegmental atelectasis at the left lung base. Heart size is normal. Abdominal aorta i s atheromatous. There is arterial flow in the celiac artery and superior mesenteric artery. There is probably 50% stenosis origin of the celiac artery. There is probably 25% stenosis origin of the super ior mesenteric artery. Abdominal aorta shows no aneurysm or dissection. Left kidney is absent. There is significant plaque formation at the origin of the right renal artery and probably 65% stenosis. Th ere is no evidence of right renal mass. There is arterial flow in the iliac and femoral arteries bilaterally. I see no evidence of hemodynami c stenosis of the iliac arteries. Right kidney show satisfactory contrast opacification. There is no hydronephrosis. Liver spleen pancr eas gallbladder appear normal. Bile ducts are not dilated. Stomach is intact. There is no ascites. Th ere is no mesenteric edema. There is no sign of free air. There is no sign of a bowel obstruction. IMPRESSION: Exam shows approximate 65% stenosis due to plaque formation at the origin of the right renal artery. There is also plaque formation at the origins of the celiac artery and superior mesenteric artery.
[2019-04-19] MEDS: LORazepam 0.5 MG TAB PO SCH (20:50)
[2019-04-19] MEDS: ATORVASTATIN 10 MG TAB PO SCH (20:51)
[2019-04-20 05:48] VITALS: BP 149/67; PULSE 75; TEMP 97.3
[2019-04-20] MEDS: LEVOTHYROXINE 75 MCG TAB PO SCH (06:05)
[2019-04-20 07:57] LABS: African American GFR (CKD) >90 (>60 ml/min/1.73 sqM); Anion Gap 9 mmol/L; Blood Urea Nitrogen 14 mg/dL (7-17); Calcium 9.5 mg/dL (8.4-10.2); Carbon Dioxide 29 mmol/L (22-30); Chloride 105 mmol/L (98-107); Glucose 151 mg/dL (74-99); Non-African American GFR(CKD) 90 (>60 ml/min/1.73 sqM); Potassium 3.6 mmol/L (3.5-5.1); Sodium 143 mmol/L (137-145)
[2019-04-20] MEDS: HEPARIN SODIUM,PORCINE 5,000 UNIT/ML 1 ML VIAL SQ SCH (08:44)
[2019-04-20] MEDS: METOPROLOL TARTRATE 50 MG TAB PO SCH (08:50)
[2019-04-20] MEDS: hydrALAZINE HCL 50 MG TAB PO SCH (08:50)
[2019-04-20] MEDS: ASPIRIN 81 MG PO SCH (08:50)
[2019-04-20] MEDS: FAMOTIDINE 20 MG TAB PO SCH (08:50)
[2019-04-20] MEDS: amLODIPine 10 MG TAB PO SCH (08:50)
[2019-04-20] MEDS: cycloSPORINE 0.05% OPHTH 0.4 ML DROPERETTE BOTH EYES SCH (08:51)
[2019-04-20] MEDS ORDERED: FLUDROCORTISONE 0.1 MG TAB PO SCH (09:00)
--- NOTE | 2019-04-20 11:09 | P.PN ---
Subjective Progress Note Date: 04/20/19 Principal diagnosis: Hypertension, renal artery stenosis Patient was seen and examined. No acute events overnight. Patient with no plans. She denies any chest pressure, shortness breath or palpitations. No nausea or vomiting. No fever or chills. Objective - Vital Signs Vital signs: Vital Signs Temp 97.3 F L 04/20/19 04:54 Pulse 75 04/20/19 04:54 Resp 16 04/20/19 04:54 BP 149/67 04/20/19 04:54 Pulse Ox 99 04/20/19 04:54 Intake & Output 04/19/19 04/20/19 04/20/19 18:59 06:59 18:59 Intake Total 540 480 Balance 540 480 Intake: Oral 540 480 Other: # Voids 3 1 # Bowel Movements 0 - Exam General: [non toxic], [no distress], [appears at stated age] Derm: [warm], [dry] Head: [atraumatic], [normocephalic], [symmetric] Eyes: [EOMI], [no lid lag], [anicteric sclera] Mouth: [no lip lesion], [mucus membranes moist] Cardiovascular: [S1S2 reg], [no murmur], [positive DP pulse bilateral] Lungs: [CTA bilateral], [no rhonchi, no rales] , [no accessory muscle use] Abdominal: [soft], [ nontender to palpation], [no guarding], [no appreciable organomegaly] Ext: [no gross muscle atrophy], [no edema], [no contractures] Neuro: [no focal neuro deficits] Psych: [Alert], [oriented], [appropriate affect] - Labs CBC & Chem 7: 04/19/19 08:06 04/20/19 07:08 Labs: Abnormal Lab Results - Last 24 Hours (Table) 04/20/19 Range/Units 07:08 Glucose 151 H (74-99) mg/dL Assessment and Plan Assessment: Hypertensive urgency, resolved Renal artery stenosis Severe hypokalemia, resolved Hypothyroidism Current blood pressure is 149/67. Lisinopril was discontinued due to her renal artery stenosis. Amlodipine was increased, she was continued on metoprolol and nephrology added hydralazine. I discussed the case with vascular surgery Dr. Roberts who suggested outpatient follow-up for interventional nephrology if warranted. Her potassium is within normal limits this morning. Fludrocortisone will be decreased from twice a day to daily dosing to be tapered off by PCP. I discussed the case with Dr. Ruiz will follow up with the patient in clinic and does not recommend any surgical intervention at this time. Plans to discharge patient home today with close follow-up with PCP (discussed with social work, list of PCPs provided) and nephrology.
--- NOTE | 2019-04-20 20:01 | PN ---
PROGRESS NOTE Patient is seen for followup for uncontrolled hypertension and hypokalemia. She did have a renal angiogram done yesterday which showed about 60% to 65% stenosis of the right renal artery. Blood pressure has been better controlled, staying at about 130 to 115 mmHg systolic. Heart rate on examination was 75 per minute. Blood pressure this morning 149/67. EXAMINATION OF THE HEART: S1 and S2. EXAMINATION OF LUNGS: Bilateral breath sounds are heard. ABDOMEN: Soft, non-tender. Examination of lower extremities shows no evidence of edema. [employer] exam is grossly intact. Labs show sodium 143, potassium 3.6, BUN 14, serum creatinine 0.72. ASSESSMENT: Uncontrolled hypertension, multifactorial, including some degree of renal artery stenosis and a solitary kidney as well as use of Florinef prior to admission. Blood pressure is better controlled. Continue off of LEONCIO inhibitors. I will discontinue the Florinef as outpatient. It has been reduced from 3 times a day to once a day. I am not sure why this was added. Patient does not need any intervention regarding the renal artery stenosis at this time. Her renal function is fairly preserved and blood pressure is also much better controlled. I will check a serum aldosterone and renal level prior to discharge and consider starting Aldactone at a low dose. We can start this prior to discharge or start it as outpatient. Patient is also advised to monitor her blood pressure and bring home readings on her next visit. MMODL / IJN: [id number] /
[2019-04-21] MEDS ORDERED: SPIRONOLACTONE 25 MG TAB PO SCH (09:00)
== END 2019-04-20 13:36 | disposition home or self-care (01) ==
LOC: EC 20:22 → 6NMEDSUR 04-18 00:32
PROVIDERS: ADMIT Internal Medicine; ATTEND Internal Medicine
DX: I16.0 Hypertensive urgency (principal); E87.6 Hypokalemia; I70.1 Atherosclerosis of renal artery; E26.9 Hyperaldosteronism, unspecified; Z87.440 Personal history of urinary (tract) infections; E03.9 Hypothyroidism, unspecified; Z86.79 Personal history of other diseases of the circulatory system; F41.9 Anxiety disorder, unspecified; F32.9 Major depressive disorder, single episode, unspecified; F41.0 Panic disorder [episodic paroxysmal anxiety]; Z90.5 Acquired absence of kidney; H81.09 Meniere's disease, unspecified ear; Z53.20 Procedure and treatment not carried out because of patient's decision for unspecified reasons; E16.2 Hypoglycemia, unspecified; Z87.891 Personal history of nicotine dependence; Z83.3 Family history of diabetes mellitus; Z82.49 Family history of ischemic heart disease and other diseases of the circulatory system; Z79.82 Long term (current) use of aspirin; Z79.890 Hormone replacement therapy; Z79.899 Other long term (current) drug therapy; Z88.2 Allergy status to sulfonamides; Z88.8 Allergy status to other drugs, medicaments and biological substances; Z88.1 Allergy status to other antibiotic agents; Z91.041 Radiographic dye allergy status
CPT/HCPCS: 96375; 96376; 96374; 99285; 36415; 93005; 80053 ×2; 80048; 82088; 84244; 83735; 84132 ×2; 84484; 85025 ×2; 85610; 85730; 81003; 76775; 70450; 74175; G0378 ×3; J1200; J2930; Q9967

== ENCOUNTER → 2019-09-29 | Outpatient (CLI) | payer MEDICARE | END | disposition home or self-care (01) | LOC: LABPAT 13:04 | PROVIDERS: ATTEND Psychiatry & Neurology Neurology | DX: Z01.818 Encounter for other preprocedural examination (principal); Z11.59 Encounter for screening for other viral diseases ==

== ENCOUNTER 2019-11-24 08:35 | Observation (INO) | payer MEDICARE ==
[2019-11-24] MEDS ORDERED: SODIUM CHLORIDE 0.9% 500 ML 500 ML IV STA (08:42)
[2019-11-24] MEDS ORDERED: diazePAM 5 MG TAB PO STA (08:43)
[2019-11-24] MEDS ORDERED: MECLIZINE 25 MG TAB PO STA (08:43)
[2019-11-24] MEDS ORDERED: FAMOTIDINE 20 MG/2 ML VIAL IV STA (08:48)
[2019-11-24] MEDS ORDERED: diphenhydrAMINE 50 MG/ML 1 ML VIAL IVP STA (08:48)
[2019-11-24] MEDS ORDERED: methylPREDNISolone SOD SUCCI 125 MG/2 ML VIAL IV STA (08:48)
--- NOTE | 2019-11-24 08:48 | ED ---
General Adult HPI - General Chief complaint: Dizziness Stated complaint: Dizziness Time Seen by Provider: 11/24/19 08:35 Source: patient, EMS, RN notes reviewed, old records reviewed Mode of arrival: EMS Limitations: no limitations - History of Present Illness Initial comments: This is a 64-year-old female presents emergency Department with a past medical history significant for a aneurysm in her brain which was leaking last year she had a coil placed. Patient states she had to have a stent placed approximately [address] Araiza. Patient states this morning she woke up and she got up and got a couple coughing one pack to bed and then the whole room started spinning. Patient states she does have a history of vertigo but this felt a l ittle different because it felt like she was spinning and not room was spinning. Patient states movement of her head definitely makes it worse. Patient states she had a little bit of anterior headache but that is resolved. Patient states she felt weak all over while she was spinning. Patient denies any nausea. Patient denies any ringing in the ER her new deafness. Patient denies any abdominal pain. Patient states she was experiencing some chest pain associated no shortness of breath or difficulty breathing. Patient denies any radiation of the pain. - Related Data Home Medications Medication Instructions Recorded Confirmed Ascorbic Acid [Vitamin C] 1,000 mg PO DAILY 09/21/14 04/18/19 Calcium Carbonate/Vitamin D3 1 tab PO DAILY 09/21/14 04/18/19 [Calcium 600-Vit D3 400 Tablet] Multivitamins, Thera [Multivitamin 1 tab PO DAILY 09/21/14 04/18/19 (formulary)] cycloSPORINE [Restasis] 1 drop BOTH EYES BID 09/21/14 04/18/19 B,C/Folic/Zinc/Copper Ox/Vit E 1 tab PO DAILY 04/18/19 04/18/19 [Stress B-Complex Tablet] Famotidine [Pepcid] 20 mg PO DAILY 04/18/19 04/18/19 Vitamin E (Dl,Tocopheryl Acet) 400 unit PO DAILY 04/18/19 04/18/19 [Vitamin E] clonazePAM [KlonoPIN] 0.5 mg PO HS PRN 04/18/19 04/18/19 Previous Rx's Medication Instructions Recorded Aspirin EC [Ecotrin Low Dose] 81 mg PO DAILY #30 tab 04/20/19 Fludrocortisone [Florinef] 0.1 mg PO DAILY #30 tab 04/20/19 Levothyroxine Sodium [Synthroid] 75 mcg PO DAILY #30 tab 04/20/19 Metoprolol Tartrate [Lopressor] 50 mg PO BID 30 Days #60 tablet 04/20/19 Simvastatin [Zocor] 10 mg PO HS #30 tab 04/20/19 Spironolactone [Aldactone] 25 mg PO DAILY #30 tab 04/20/19 amLODIPine [Norvasc] 10 mg PO DAILY #30 tablet 04/20/19 hydrALAZINE HCL [Apresoline] 50 mg PO BID #60 tab 04/20/19 Allergies Allergy/AdvReac Type Severity Reaction Status Date / Time clarithromycin [From Biaxin] Allergy Unknown Verified 11/24/19 08:47 clonidine Allergy Swelling Verified 11/24/19 08:47 Iodinated Contrast Media Allergy Unknown Verified 11/24/19 08:47 [Iodinated Contrast Media - IV Dye] levofloxacin [From Levaquin] Allergy Unknown Verified 11/24/19 08:47 methylprednisolone Allergy Rash/Hives Verified 11/24/19 08:47 [From Medrol] moxifloxacin HCl Allergy Unknown Verified 11/24/19 08:47 [From Avelox] Sulfa (Sulfonamide Allergy Unknown Verified 11/24/19 08:47 Antibiotics) ciprofloxacin [From Cipro] AdvReac Rash/Hives Verified 11/24/19 08:47 clindamycin AdvReac HEARTBURN Verified 11/24/19 08:47 doxycycline AdvReac Headache & Verified 11/24/19 08:47 Vomitting nitrofurantoin AdvReac Headache & Verified 11/24/19 08:47 [From Macrobid] Vomitting nitrofurantoin AdvReac Headache & Verified 11/24/19 08:47 macrocrystalline Vomitting [From Macrobid] scopolamine AdvReac Rash/Hives Verified 11/24/19 08:47 [From Transderm-Scop] Review of Systems ROS Statement: Those systems with pertinent positive or pertinent negative responses have been documented in the HPI. ROS Other: All systems not noted in ROS Statement are negative. Past Medical History Past Medical History: Hypertension, Thyroid Disorder Additional Past Medical History / Comment(s): VERTIGO, MENIERES DISEASE, HYPOGLYCEMIA, brain aneurysm History of Any Multi-Drug Resistant Organisms: None Reported Past Surgical History: Hysterectomy, Orthopedic Surgery Additional Past Surgical History / Comment(s): Left nephrectomy, brain aneurysm with coil, stent in brain Past Anesthesia/Blood Transfusion Reactions: No Reported Reaction Past Psychological History: Anxiety, Depression, Panic Disorder Smoking Status: Never smoker Past Alcohol Use History: None Reported Past Drug Use History: None Reported - Past Family History Mother Family Medical History: Hypertension Father Family Medical History: Diabetes Mellitus General Exam - General Exam Comments Initial Comments: GENERAL: Patient is well-developed and well-nourished. Patient is nontoxic and well- hydrated and is in mild distress. ENT: Neck is soft and supple. No significant lymphadenopathy is noted. Oropharynx is clear. Moist mucous membranes. Neck has full range of motion without elicit ing any pain. EYES: The sclera were anicteric and conjunctiva were pink and moist. Extraocular mo vements were intact and pupils were equal round and reactive to light. Eyelids were unremarkable. PULMONARY: Unlabored respirations. Good breath sounds bilaterally. No audible rales rhonchi or wheezing was noted. CARDIOVASCULAR: There is a regular rate and rhythm without any murmurs gallops or rubs. ABDOMEN: Soft and nontender with normal bowel sounds. SKIN: Skin is clear with no lesions or rashes and otherwise unremarkable. NEUROLOGIC: Patient is alert and oriented x3. Cranial nerves II through XII are grossly intact. Motor and sensory are also intact. Normal speech, volume and content. Symmetrical smile. Cerebellar exam [id number] testing grossly intact. MUSCULOSKELETAL: Normal extremities with adequate strength and full range of motion. No lower extremity swelling or edema. No calf tenderness. LYMPHATICS: No significant lymphadenopathy is noted PSYCHIATRIC: Normal psychiatric evaluation. Limitations: no limitations Course Vital Signs 11/24/19 11/24/19 11/24/19 08:37 08:46 08:50 Temperature 98.0 F Pulse Rate 93 86 92 Respiratory 18 15 12 Rate Blood Pressure 159/73 159/73 159/73 O2 Sat by Pulse 99 99 100 Oximetry 11/24/19 11/24/19 11/24/19 09:00 09:10 09:20 Temperature Pulse Rate 88 100 98 Respiratory 9 L 12 12 Rate Blood Pressure 159/73 161/78 161/78 O2 Sat by Pulse 100 99 100 Oximetry 08/11/24/19 11/24/19 09:30 10:00 10:10 Temperature Pulse Rate 90 94 Respiratory 15 12 Rate Blood Pressure 161/78 144/70 O2 Sat by Pulse 99 98 Oximetry 11/24/19 11/24/19 10:20 10:30 Temperature Pulse Rate 93 91 Respiratory 19 13 Rate Blood Pressure 144/70 144/70 O2 Sat by Pulse 99 98 Oximetry Medical Decision Making - Medical Decision Making EKG shows normal sinus rhythm at 94 bpm MN interval 180 QRSs 86 QT interval 360 QTC is 460 per patient's EKG shows T-wave inversions in precordial leads V3 through V6 as well as leads 23 and aVF. These are all seen on old EKG. CT of the brain shows no acute abnormality. CTA shows no acute abnormality. Chest x-ray shows no acute abnormality. Patient received Antivert and Valium in the emergency department and she was doing considerably better. Patient had no vertigo symptoms at this time. Patient chest pain also resolved. I spoke with Dr. Gates he agreed to admit the patient admitted the patient wrote admitting orders I consult cardiology. - Lab Data Result diagrams: 11/24/19 08:57 11/24/19 08:57 Lab Results 11/24/19 11/24/19 11/24/19 Range/Units 08:57 08:57 08:57 WBC 5.6 (3.8-10.6) k/uL RBC 4.55 (3.80-5.40) m/uL Hgb 13.5 (11.4-16.0) gm/dL Hct 39.9 (34.0-46.0) % MCV 87.8 (80.0-100.0) fL MCH 29.6 (25.0-35.0) pg MCHC 33.8 (31.0-37.0) g/dL RDW 12.6 (11.5-15.5) % Plt Count 200 (150-450) k/uL Neutrophils % 64 % Lymphocytes % 21 % Monocytes % 10 % Eosinophils % 2 % Basophils % 1 % Neutrophils # 3.6 (1.3-7.7) k/uL Lymphocytes # 1.2 (1.0-4.8) k/uL Monocytes # 0.5 (0-1.0) k/uL Eosinophils # 0.1 (0-0.7) k/uL Basophils # 0.1 (0-0.2) k/uL PT 9.5 (9.0-12.0) sec INR 0.9 (<1.2) APTT 21.8 L (22.0-30.0) sec Sodium 141 (137-145) mmol/L Potassium 3.8 (3.5-5.1) mmol/L Chloride 107 (98-107) mmol/L Carbon Dioxide 27 (22-30) mmol/L Anion Gap 7 mmol/L BUN 11 (7-17) mg/dL Creatinine 0.73 (0.52-1.04) mg/dL Est GFR (CKD-EPI)AfAm >90 (>60 ml/min/1.73 sqM) Est GFR (CKD-EPI)NonAf 87 (>60 ml/min/1.73 sqM) Glucose 113 H (74-99) mg/dL Calcium 9.0 (8.4-10.2) mg/dL Magnesium 1.7 (1.6-2.3) mg/dL Total Bilirubin 0.5 (0.2-1.3) mg/dL AST 30 (14-36) U/L ALT 21 (4-34) U/L Alkaline Phosphatase 71 (38-126) U/L Troponin I (0.000-0.034) ng/mL Total Protein 6.4 (6.3-8.2) g/dL Albumin 4.0 (3.5-5.0) g/dL 11/23/ Range/Units 08:57 WBC (3.8-10.6) k/uL RBC (3.80-5.40) m/uL Hgb (11.4-16.0) gm/dL Hct (34.0-46.0) % MCV (80.0-100.0) fL MCH (25.0-35.0) pg MCHC (31.0-37.0) g/dL RDW (11.5-15.5) % Plt Count (150-450) k/uL Neutrophils % % Lymphocytes % % Monocytes % % Eosinophils % % Basophils % % Neutrophils # (1.3-7.7) k/uL Lymphocytes # (1.0-4.8) k/uL Monocytes # (0-1.0) k/uL Eosinophils # (0-0.7) k/uL Basophils # (0-0.2) k/uL PT (9.0-12.0) sec INR (<1.2) APTT (22.0-30.0) sec Sodium (137-145) mmol/L Potassium (3.5-5.1) mmol/L Chloride (98-107) mmol/L Carbon Dioxide (22-30) mmol/L Anion Gap mmol/L BUN (7-17) mg/dL Creatinine (0.52-1.04) mg/dL Est GFR (CKD-EPI)AfAm (>60 ml/min/1.73 sqM) Est GFR (CKD-EPI)NonAf (>60 ml/min/1.73 sqM) Glucose (74-99) mg/dL Calcium (8.4-10.2) mg/dL Magnesium (1.6-2.3) mg/dL Total Bilirubin (0.2-1.3) mg/dL AST (14-36) U/L ALT (4-34) U/L Alkaline Phosphatase (38-126) U/L Troponin I <0.012 (0.000-0.034) ng/mL Total Protein (6.3-8.2) g/dL Albumin (3.5-5.0) g/dL Disposition Clinical Impression: Chest pain, Vertigo, History of cerebral aneurysm repair Disposition: ADMITTED IP TO THIS [facility] Referrals: Franca Jim MD [STAFF PHYSICIAN] - 1-2 days Time of Disposition: 10:40
[2019-11-24 09:16] LABS: Basophils # (A) 0.1 k/uL (0-0.2); Basophils % (A) 1 %; Eosinophils # (A) 0.1 k/uL (0-0.7); Eosinophils % (A) 2 %; HCT 39.9 % (34.0-46.0); HGB 13.5 gm/dL (11.4-16.0); Lymphocytes # (A) 1.2 k/uL (1.0-4.8); Lymphocytes % (A) 21 %; MCH 29.6 pg (25.0-35.0); MCHC 33.8 g/dL (31.0-37.0); MCV 87.8 fL (80.0-100.0); Mean Platelet Volume 7.2; Monocytes # (A) 0.5 k/uL (0-1.0); Monocytes % (A) 10 %; Neutrophils # (A) 3.6 k/uL (1.3-7.7); Neutrophils % (A) 64 %; Platelet Count 200 k/uL (150-450); RBC 4.55 m/uL (3.80-5.40); RDW 12.6 % (11.5-15.5); WBC 5.6 k/uL (3.8-10.6)
[2019-11-24 09:25] LABS: ALT 21 U/L (4-34); AST 30 U/L (14-36); African American GFR (CKD) >90 (>60 ml/min/1.73 sqM); Alkaline Phosphatase 71 U/L (38-126); Anion Gap 7 mmol/L; Blood Urea Nitrogen 11 mg/dL (7-17); Carbon Dioxide 27 mmol/L (22-30); Chloride 107 mmol/L (98-107); Glucose 113 mg/dL (74-99); Magnesium 1.7 mg/dL (1.6-2.3); Non-African American GFR(CKD) 87 (>60 ml/min/1.73 sqM); Potassium 3.8 mmol/L (3.5-5.1); Sodium 141 mmol/L (137-145); Total Bilirubin 0.5 mg/dL (0.2-1.3); Total Protein 6.4 g/dL (6.3-8.2)
[2019-11-24 09:35] LABS: INR 0.9 (<1.2); Prothrombin Time 9.5 sec (9.0-12.0)
[2019-11-24 09:46] LABS: Partial Thromboplastin Time 21.8 sec (22.0-30.0)
--- NOTE | 2019-11-24 09:52 | XR ---
EXAMINATION TYPE: XR chest 2V DATE OF EXAM: 11/24/2019 COMPARISON: Chest x-ray March 16, 2019 HISTORY: Chest pain and dizziness. TECHNIQUE: Frontal and lateral views of the chest are obtained. FINDINGS: There is some chronic parenchymal change without suspicious new focal air space opacity, p leural effusion, or pneumothorax seen. The cardiac silhouette size remains within normal limits. T he osseous structures are somewhat demineralized. Surgical clips posterior upper abdomen are partiall y imaged, suspect prior left-sided nephrectomy. IMPRESSION: No acute cardiopulmonary process. No significant change from prior.
--- NOTE | 2019-11-24 10:04 | CT ---
EXAMINATION TYPE: CT brain wo con DATE OF EXAM: 11/24/2019 COMPARISON: 04/17/2019 HISTORY: 64-year-old female Dizziness. TECHNIQUE: Examination was done in axial plane without intravenous contrast. Coronal and sagittal r econstructions performed. CT DLP: 1089.8 mGycm Automated exposure control for dose reduction was used. FINDINGS: Streak and beam hardening artifact related to coil mass at the A2/A3 junction of the anterior cerebra l artery at the site of known aneurysm. Within this limitation, there is no evidence of acute intracranial hemorrhage, acute ischemic change s, mass, mass-effect, or extra-axial fluid collection. There is no effacement of cerebral sulci or b ely subarachnoid cisterns. There is no hydrocephalus. There is no midline shift. Dykes-white matte r distinction is preserved. Mild patchy periventricular white matter hypodensities. Paranasal sinuses and mastoid air cells are well pneumatized. Orbits and globes are intact. IMPRESSION: Coil mass at the A2/A3 anterior cerebral artery junction from prior aneurysm coiling. No acute intrac ranial abnormality seen.
--- NOTE | 2019-11-24 10:22 | CT ---
EXAMINATION TYPE: CT angio head neck DATE OF EXAM: 11/24/2019 COMPARISON: 03/16/2019 HISTORY: 64-year-old female Dizziness. TECHNIQUE: Contiguous axial scanning of the head and neck performed with IV Contrast, patient injecte d with 65 mL of Isovue 370. Coronal/sagittal MIP reconstructions performed. 3-D reconstructions gener ated on a dedicated independent workstation. CT DLP: 362.7 mGycm Automated exposure control for dose reduction was used. FINDINGS: NECK: Bovine configuration to the aortic arch. Severe focal stenosis of the proximal left subclavian artery. Dominant right vertebral artery. There may be moderate atherosclerotic narrowing at the origin of bot h vertebral arteries. Right common carotid artery is patent. Mild atherosclerotic calcifications at the bifurcation with mi ld, less than 20% proximal ICA narrowing. Left common carotid artery is patent with mild atherosclerotic plaque and calcification at the bifurc ation with mild, probably 25% narrowing at the proximal ICA. Biapical pleural parenchymal scarring in the visualized lungs. HEAD: Dominant right vertebral artery. Vertebral and basilar arteries are patent. Persistent origin r ight posterior cerebral artery. Unable to exclude a moderate to severe focal stenosis at the P3 segment left posterior cerebral arter y. There appears to be a stent in place as well as a coil mass in the region of previous aneurysm at the A2/A3 junction of the anterior cerebral artery. No recurrent aneurysm is seen. Mild atherosclerotic arch calcifications. Mild atherosclerotic irregularity within the right greater the left MCA branches. IMPRESSION: NECK: 1. REDEMONSTRATED SEVERE STENOSIS PROXIMAL LEFT SUBCLAVIAN ARTERY. 2. REDEMONSTRATED DOMINANT RIGHT VERTEBRAL ARTERY. POSSIBLE MODERATE ATHEROSCLEROTIC NARROWING AT THE ORIGIN OF BOTH VERTEBRAL ARTERIES. 3. MILD BILATERAL PROXIMAL ICA STENOSES. NO HEMODYNAMICALLY SIGNIFICANT INTERNAL CAROTID ARTERY STENO SIS ON EITHER SIDE. HEAD: 4. INTERVAL STENTING AND EMBOLIZATION of the patient's previous saccular aneurysm along the A2/A3 parish ction of the anterior cerebral artery. No recurrent aneurysm is seen. 5. Unable to exclude a moderate to severe focal stenosis at the P3 segment left posterior cerebral ar vincent. This appearance is similar to the prior exam in retrospect. Scattered mild atherosclerotic irre gularity within the MCA branches and within the bilateral carotid siphons. 6. Redemonstrated persistent origin right [employer].
[2019-11-24] MEDS ORDERED: NITROGLYCERIN OINT 1 INCH/GM PACKET TOPICAL STA (10:27)
[2019-11-24] MEDS ORDERED: ASPIRIN 81 MG PO STA (10:28)
[2019-11-24] MEDS ORDERED: NITROGLYCERIN SL TABS 0.4 MG TAB SUBLINGUAL PRN (10:42)
[2019-11-24] MEDS ORDERED: MECLIZINE 25 MG TAB PO PRN (10:43)
[2019-11-24] MEDS: NITROGLYCERIN OINT 1 INCH/GM PACKET TOPICAL SCH ×2 (13:25→18:27)
--- NOTE | 2019-11-24 13:52 | P.HPIM ---
History of Present Illness This is a pleasant 64 years old female with past medical history of hypertension, hypothyroidism and she follows up with Dr. Yousif, ruptured brain aneurysm status post coiling at [facility] on 03/2019 and she follow up with Dr. Blanc , hyperlipidemia, hearing difficulty. Her PCP is Dr. Tiffanie Lopez. She presents because of chest pain and dizziness. Patient woke up fine, later on she started developing dizziness and fullness in her head, she thought the room on her head or spinning, she waited for an hour and she got Ativan however it gets worse so she called her son and came to emergency room. She also had c entral chest pain about 5/10, nonradiating felt like tightness and burning. Also she had some mild headache and generalized weakness Her symptoms resolved and she is back to or close to her normal self now. She thought her symptoms related to her anxiety and panic attacks as she got similar symptoms with them. She also vomited twice. She denies smoking, alcohol or illicit drugs She takes aspirin and Plavix because she has a stent in her aneurysm. Vitals are stable labs unremarkable including CBC, BMP, INR, liver enzymes, troponins 2. Chest x-ray: No acute process. Brain CT: No acute process. Coil mass at the A2/83 anterior cerebral artery junction from prior aneurysm coiling CT angiography of the brain shows severe stenosis of the proximal left subclavian artery, dominant right vertebral artery, possible moderate atherosclerotic narrowing at the origin of both vertebral arteries, mild bilateral ICA stenosis. Cannot exclude severe stenosis of the P3 segment of the left posterior cerebral artery, symptoms similar to prior examination The emergency room she received aspirin, Valium, Benadryl, Pepcid, meclizine, Solu-Medrol and 500 normal saline boluses. Review of Systems CONSTITUTIONAL: No fever, no malaise, no fatigue. HEENT: No recent visual problems or hearing problems. Denied any sore throat. CARDIOVASCULAR: No orthopnea, PND, no palpitations, no syncope. PULMONARY: No shortness of breath, no cough, no hemoptysis. GASTROINTESTINAL: No diarrhea, no nausea, no vomiting, no abdominal pain. Normoactive bowel sounds. NEUROLOGICAL: No headaches, no weakness, no numbness. HEMATOLOGICAL: Denies any bleeding or petechiae. GENITOURINARY: Denies any burning micturition, frequency, or urgency. MUSCULOSKELETAL/RHEUMATOLOGICAL: Denies any joint pain, swelling, or any muscle pain. ENDOCRINE: Denies any polyuria or polydipsia. Past Medical History Past Medical History: Hearing Disorder / Deafness, Hyperlipidemia, Hypertension, Respiratory Disorder, Thyroid Disorder, Vascular Disorder Additional Past Medical History / Comment(s): 03/2019 brain aneurysm with ruptur e-went to [facility] and had brain coil and recently had brain stent, meniere's disese/vertigo and had surgery behind R ear, bilateral KALISPEL/wears aides, L ureteral hernia surgically repaired/then scarred causing blockage and had L nephrectomy, murmur, bronchitis, hypothyroid, sinus problems/allergies and recent sinus infection, bronchitis. History of Any Multi-Drug Resistant Organisms: None Reported Past Surgical History: Hysterectomy, Orthopedic Surgery Additional Past Surgical History / Comment(s): Left nephrectomy, brain aneurysm with coil then stent in brain, R behind ear surgery for Meniere's, colonoscopy. Past Anesthesia/Blood Transfusion Reactions: No Reported Reaction Additional Past Anesthesia/Blood Transfusion Reaction / Comment(s): Pt has received blood with misscarriage and when had hysterectomy without reaction. Smoking Status: Former smoker, Never smoker - Past Family History Mother Family Medical History: Hypertension Additional Family Medical History / Comment(s): Mother is . Father Family Medical History: Diabetes Mellitus Additional Family Medical History / Comment(s): Father is Medications and Allergies Home Medications Medication Instructions Recorded Confirmed Type Calcium Carbonate/Vitamin D3 2 tab PO DAILY 09/21/14 11/24/19 History [Calcium 600-Vit D3 400 Tablet] cycloSPORINE [Restasis] 1 drop BOTH EYES BID 09/21/14 11/24/19 History Vitamin E (Dl,Tocopheryl Acet) 400 unit PO DAILY 04/18/19 11/24/19 History [Vitamin E] Levothyroxine Sodium [Synthroid] 75 mcg PO DAILY #30 tab 04/20/19 11/24/19 Rx Simvastatin [Zocor] 10 mg PO HS #30 tab 04/20/19 11/24/19 Rx Aspirin 325 mg PO DAILY 11/24/19 11/24/19 History Cholecalciferol [Vitamin D3 (25 2,000 unit PO DAILY 11/24/19 11/24/19 History Mcg = 1000 Iu)] Clopidogrel Bisulfate [Plavix] 75 mg PO DAILY 11/24/19 11/24/19 History Cyanocobalamin (Vitamin B-12) 1,000 mcg PO DAILY 11/24/19 11/24/19 History [Vitamin B-12] LORazepam [Ativan] 0.5 mg PO BID 11/24/19 11/24/19 History Melatonin 5 mg PO HS 11/24/19 11/24/19 History Metoprolol Tartrate [Lopressor] 25 mg PO BID 11/24/19 11/24/19 History Vitamin B Complex/Folic Acid 1 tab PO DAILY 11/24/19 11/24/19 History [B-Complex Tablet] Women's Multivitamin W/O Iron 1 tab PO DAILY 11/24/19 11/24/19 History amLODIPine [Norvasc] 10 mg PO HS 11/24/19 11/24/19 History Allergies Allergy/AdvReac Type Severity Reaction Status Date / Time clarithromycin [From Biaxin] Allergy Unknown Verified 11/24/19 11:00 clonidine Allergy Swelling Verified 11/24/19 11:00 Iodinated Contrast Media Allergy Unknown Verified 11/24/19 11:00 [Iodinated Contrast Media - IV Dye] levofloxacin [From Levaquin] Allergy Unknown Verified 11/24/19 11:00 methylprednisolone Allergy Rash/Hives Verified 11/24/19 11:00 [From Medrol] moxifloxacin HCl Allergy Unknown Verified 11/24/19 11:00 [From Avelox] Sulfa (Sulfonamide Allergy Unknown Verified 11/24/19 11:00 Antibiotics) ciprofloxacin [From Cipro] AdvReac Rash/Hives Verified 11/24/19 11:00 clindamycin AdvReac HEARTBURN Verified 11/24/19 11:00 doxycycline AdvReac Headache & Verified 11/24/19 11:00 Vomitting nitrofurantoin AdvReac Headache & Verified 11/24/19 11:00 [From Macrobid] Vomitting nitrofurantoin AdvReac Headache & Verified 11/24/19 11:00 macrocrystalline Vomitting [From Macrobid] scopolamine AdvReac Rash/Hives Verified 11/24/19 11:00 [From Transderm-Scop] Physical Exam Vitals: Vital Signs Temp Pulse Pulse Resp BP BP Pulse Ox 11/24/19 11:18 97.3 F L 74 16 152/52 100 11/24/19 11:00 89 18 143/70 99 11/24/19 10:30 91 13 144/70 98 11/24/19 10:20 93 19 144/70 99 11/24/19 10:10 94 12 144/70 98 11/24/19 10:00 90 15 99 11/24/19 09:30 161/78 11/24/19 09:20 98 12 161/78 100 11/24/19 09:10 100 12 161/78 99 11/24/19 09:00 88 9 L 159/73 100 11/24/19 08:50 92 12 159/73 100 11/24/19 08:46 86 15 159/73 99 11/24/19 08:37 98.0 F 93 18 159/73 99 Intake and Output 11/23/19 11/24/19 11/24/19 22:59 06:59 14:59 Intake Total 0 Balance 0 Intake: Oral 0 Other: Weight 63.049 kg GENERAL: The patient is alert and oriented x3, not in any acute distress. Well developed, well nourished. HEENT: Pupils are round and equally reacting to light. EOMI. No scleral icterus. No conjunctival pallor. Normocephalic, atraumatic. No pharyngeal erythema. No thyromegaly. CARDIOVASCULAR: S1 and S2 present. No murmurs, rubs, or gallops. PULMONARY: Chest is clear to auscultation, no wheezing or crackles. ABDOMEN: Soft, nontender, nondistended, normoactive bowel sounds. No palpable organomegaly. MUSCULOSKELETAL: No joint swelling or deformity. EXTREMITIES: No cyanosis, clubbing, or pedal edema. NEUROLOGICAL: Gross neurological examination did not reveal any focal deficits. SKIN: No rashes. No petechiae Results CBC & Chem 7: 11/24/19 08:57 11/24/19 08:57 Labs: Abnormal Lab Results - Last 24 Hours (Table) 11/24/19 11/24/19 Range/Units 08:57 08:57 APTT 21.8 L (22.0-30.0) sec Glucose 113 H (74-99) mg/dL Thrombosis Risk Factor Assmnt - Choose All That Apply Any of the Below Risk Factors Present?: Yes Other Risk Factors: Yes Each Risk Factor Represents 2 Points: Age 61-74 years Other congenital or acquired thrombophilia - If yes, enter type in comment: No Thrombosis Risk Factor Assessment Total Risk Factor Score: 2 Thrombosis Risk Factor Assessment Level: Low Risk Assessment and Plan Assessment: Chest pain, rule out cardiac causes Dizziness, with mild headache Hypertension Hypothyroidism Ruptured brain aneurysm status post coiling at [facility]. Severe stenosis of the proximal left subclavian artery Possible severe stenosis of the left posterior cerebral artery Plan: This is a pleasant 64 years old female who presents with chest pain and dizziness. We'll check orthostatic vitals. Continue with Antivert. Consult cardiology and neurology Labs and medication were reviewed.. Continue same treatment. Continue with symptomatic treatment. Resume home medication. Monitor lytes and vitals. DVT and GI prophylaxis. Further recommendations of the clinical course of the patient DVT prophylaxis: Subcutaneous heparin GI Prophylaxis: Pepcid
--- NOTE | 2019-11-24 18:21 | P.CNNES ---
History of Present Illness Consult date: 11/24/19 Requesting physician: Kit E Sheet Reason for Consult: Dizziness with previous ruptured aneurysm, status post coiling History of Present Illness: Patient is a 64-year-old female, came to the hospital today at 8:35 AM for spinning and vertigo. Patient has a significant past medical history of cerebral aneurysm and Mnire's disease as mentioned below in detail. Patient states that she woke up in the morning at around 6:15 AM. She did her usual morning chores. At 6:45 AM, she was sitting in the bed, drinking coffee, looking at her phone when she suddenly felt fullness in her head, slight spinning. She felt her head was heavy. She shut off the light, took Ativan but the symptoms kept on getting worse and everything was spinning around. After one hour at the symptoms did not go go away, she told her son and was brought to the hospital. Patient's blood pressure on arrival was 144/70, pulse rate [address] head showed coil mass at A2/A3 anterior cerebral artery junction from prior aneurysm coiling. No acute intracranial abnormality seen. Visualized paranasal sinuses and external auditory canal are clear. CTA of neck redemonstrated severe stenosis proximal left subclavian artery. Redemonstrated dominant right vertebral artery. Possible moderate atherosclerotic narrowing at the origin of both vertebral arteries. Mild bilateral proximal ICA stenosis. No hemodynamically significant internal carotid artery stenosis on either side. CTA of the head showed interval stenting and embolization of the patient's previous saccular aneurysm along the A2/A3 junction of the anterior cerebral artery. No recurrent aneurysm is seen. 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 This appearance is similar to prior exam in retrospect. Scattered mild atherosclerotic irregularity within the MCA branches and within the bilateral carotid siphons. Redemonstrated persistent origin right PIG CASTING MACHINE OPERATOR. CBC, PT/PTT and Chem-20 normal. Patient's B12 962 on 10/13/2013. Patient states she has history of hearing loss since she was in her 20s. She was diagnosed with Mnire's disease in 2003 for which she has been seeing Dr. Blanc. Her symptoms got worse in 2014 and had another episode in 2015 in which symptoms persisted for 3 months. Patient finally underwent some ENT surgery on the right side in 2015 after which she stopped having vertigo. She was doing well since then. Patient states that on 03/15/2019 she had a syncopal spell, and was diagnosed with a ruptured cerebral aneurysm. She underwent endovascular placement of [address] Davis to the cerebral aneurysm. Patient states that she had repeat cerebral angiogram performed on 12/02/2019, in which there was recurrence of the same cerebral aneurysm. Patient underwent pipeline coil embolization at that time. Patient currently is on aspirin 325 mg and Plavix 75 mg daily. Also on B12, B6 amlodipine 10 mg, metoprolol 25 mg twice a day simvastatin 10 mg and levothyroxine. Orthostatics revealed supine blood pressure 143/71, sitting 131/70 and standing 114/69. Patient states that she was given Valium in the ER and some other medications and as symptoms went away in a few hours. Patient has history of tobacco use of half pack per day off and on since age 12. No family history of cerebral aneurysms. Patient states that she has history of hypertension for about 10 years, but was not treated until she had the cerebral aneurysm. Review of Systems As above in detail. All other review of systems unremarkable. Denies shortness of breath double vision, loss of vision, hoarseness or throat or dysphagia. She does have chronic hearing loss. Past Medical History Past Medical History: Hearing Disorder / Deafness, Hyperlipidemia, Hypertension, Respiratory Disorder, Thyroid Disorder, Vascular Disorder Additional Past Medical History / Comment(s): 03/2019 brain aneurysm with rupture-went to [facility] and had brain coil and recently had brain stent, meniere's disese/vertigo and had surgery behind R ear, bilateral [place]/wears aides, L ureteral hernia surgically repaired/then scarred causing blockage and had L nephrectomy, murmur, bronchitis, hypothyroid, sinus problems/allergies and recent sinus infection, bronchitis. History of Any Multi-Drug Resistant Organisms: None Reported Past Surgical History: Hysterectomy, Orthopedic Surgery Additional Past Surgical History / Comment(s): Left nephrectomy, brain aneurysm with coil then stent in brain, R behind ear surgery for Meniere's, colonoscopy. Past Anesthesia/Blood Transfusion Reactions: No Reported Reaction Additional Past Anesthesia/Blood Transfusion Reaction / Comment(s): Pt has received blood with misscarriage and when had hysterectomy without reaction. Smoking Status: Former smoker, Never smoker - Past Family History Mother Family Medical History: Hypertension Additional Family Medical History / Comment(s): Mother is . Father Family Medical History: Diabetes Mellitus Additional Family Medical History / Comment(s): Father is Medications and Allergies Home Medications Medication Instructions Recorded Confirmed Type Calcium Carbonate/Vitamin D3 2 tab PO DAILY 09/21/14 11/24/19 History [Calcium 600-Vit D3 400 Tablet] cycloSPORINE [Restasis] 1 drop BOTH EYES BID 09/21/14 11/24/19 History Vitamin E (Dl,Tocopheryl Acet) 400 unit PO DAILY 04/18/19 11/24/19 History [Vitamin E] Levothyroxine Sodium [Synthroid] 75 mcg PO DAILY #30 tab 04/20/19 11/24/19 Rx Simvastatin [Zocor] 10 mg PO HS #30 tab 04/20/19 11/24/19 Rx Aspirin 325 mg PO DAILY 11/24/19 11/24/19 History Cholecalciferol [Vitamin D3 (25 2,000 unit PO DAILY 11/24/19 11/24/19 History Mcg = 1000 Iu)] Clopidogrel Bisulfate [Plavix] 75 mg PO DAILY 11/24/19 11/24/19 History Cyanocobalamin (Vitamin B-12) 1,000 mcg PO DAILY 11/24/19 11/24/19 History [Vitamin B-12] LORazepam [Ativan] 0.5 mg PO BID 11/24/19 11/24/19 History Melatonin 5 mg PO HS 11/24/19 11/24/19 History Metoprolol Tartrate [Lopressor] 25 mg PO BID 11/24/19 11/24/19 History Vitamin B Complex/Folic Acid 1 tab PO DAILY 11/24/19 11/24/19 History [B-Complex Tablet] Women's Multivitamin W/O Iron 1 tab PO DAILY 11/24/19 11/24/19 History amLODIPine [Norvasc] 10 mg PO HS 11/24/19 11/24/19 History Allergies Allergy/AdvReac Type Severity Reaction Status Date / Time clarithromycin [From Biaxin] Allergy Unknown Verified 11/24/19 11:00 clonidine Allergy Swelling Verified 11/24/19 11:00 Iodinated Contrast Media Allergy Unknown Verified 11/24/19 11:00 [Iodinated Contrast Media - IV Dye] levofloxacin [From Levaquin] Allergy Unknown Verified 11/24/19 11:00 methylprednisolone Allergy Rash/Hives Verified 11/24/19 11:00 [From Medrol] moxifloxacin HCl Allergy Unknown Verified 11/24/19 11:00 [From Avelox] Sulfa (Sulfonamide Allergy Unknown Verified 11/24/19 11:00 Antibiotics) ciprofloxacin [From Cipro] AdvReac Rash/Hives Verified 11/24/19 11:00 clindamycin AdvReac HEARTBURN Verified 11/24/19 11:00 doxycycline AdvReac Headache & Verified 11/24/19 11:00 Vomitting nitrofurantoin AdvReac Headache & Verified 11/24/19 11:00 [From Macrobid] Vomitting nitrofurantoin AdvReac Headache & Verified 11/24/19 11:00 macrocrystalline Vomitting [From Macrobid] scopolamine AdvReac Rash/Hives Verified 11/24/19 11:00 [From Transderm-Scop] Physical Examination - Vital Signs Vital Signs: Vital Signs Temp Pulse Pulse Pulse Pulse Pulse Resp 11/24/19 14:03 97.7 F 104 H 103 H 90 16 11/24/19 11:18 97.3 F L 74 16 11/24/19 11:00 89 18 11/24/19 10:30 91 13 11/24/19 10:20 93 19 11/24/19 10:10 94 12 11/24/19 10:00 90 15 11/24/19 09:30 11/24/19 09:20 98 12 11/24/19 09:10 100 12 11/24/19 09:00 88 9 L 11/24/19 08:50 92 12 11/24/19 08:46 86 15 11/24/19 08:37 98.0 F 93 18 BP BP BP BP BP Pulse Ox 11/24/19 14:03 131/70 114/69 143/71 99 11/24/19 11:18 152/52 100 11/24/19 11:00 143/70 99 11/24/19 10:30 144/70 98 11/24/19 10:20 144/70 99 11/24/19 10:10 144/70 98 11/24/19 10:00 99 11/24/19 09:30 161/78 08 09:20 161/78 100 11/24/19 09:10 161/78 99 11/24/19 09:00 159/73 100 11/24/19 08:50 159/73 100 11/24/19 08:46 159/73 99 11/24/19 08:37 159/73 99 Intake and Output 11/24/19 11/24/19 11/24/19 06:59 14:59 22:59 Intake Total 0 Balance 0 Intake: Oral 0 Other: Weight 63.049 kg On examination patient is an elderly female, in no acute distress. Patient is alert and awake fully oriented to time place and person. Speech and language functions are normal. Attention and concentration fund of knowledge is adequate. On cranial nerve examination pupils are round and reactive to light, visual mijares are full on confrontation, extraocular muscles are intact with no nystagmus. Face is symmetric, tongue protrudes to the midline. Palatal elevation and sensation normal. Hearing is severely decreased, shoulder shrug normal. On muscle strength testing there is no pronator drift and the strength is normal in arms and legs distally and proximally. Reflexes are 1+ to 2+ and plantars downgoing. No ataxia for [id number] testing although she is slightly tremulous bilaterally. [id number] testing is perfect. Tone and bulk of muscles normal. Sensory touch is equal with no neglect. Gait is normal. No obvious bruit, S1 and S2 audible. Peripheral pulses present. Chest is clear S1 and S2 audible. Abdomen soft nontender. Results - Laboratory Findings CBC and BMP: 11/24/19 08:57 11/24/19 08:57 Abnormal Lab Findings: Abnormal Labs 11/24/19 11/24/19 08:57 08:57 APTT 21.8 L Glucose 113 H Assessment and Plan Assessment: * Vertigo, with subjective feeling of fullness and heavy feeling in the head, likely due to an attack of Mnire's disease. Patient has a long-standing history of Mnire's disease. Doubt cerebral ischemia, due to lack of any other focal neurological symptoms with it. Her current neurological examination is completely nonfocal. * History of cerebral aneurysm, status post coiling on 03/15/2019 and underwent pipeline embolization of reoccurrence of same aneurysm on 11/01/2019. * Orthostatic hypotension noted, but probably not the cause of her presenting symptoms. * Left subclavian artery stenosis, severe degree. * History of Mnire's disease since 2003. * History of tobacco use * Hypertension Plan: * Continue dual antiplatelet medications. * Check fasting a.m. lipid panel, hemoglobin A1c, B12 folate. * Meclizine 25 mg 4 times a day when necessary vertigo. * Low-salt diet. * Patient's TSH is significantly elevated 54.0, which may need adjustment of her thyroid replacement. * Vascular surgical consultation for severe left subclavian stenosis. * Follow up with her neurologist Dr. Blanc in one week. * Suggest follow-up with Dr. Davis about left subclavian artery stenosis, may consider stenting as outpatient.
[2019-11-24] MEDS ORDERED: amLODIPine 10 MG TAB PO SCH (21:00)
[2019-11-24] MEDS ORDERED: LORazepam 0.5 MG TAB PO PRN (21:00)
[2019-11-24] MEDS ORDERED: ATORVASTATIN 10 MG TAB PO SCH (21:00)
[2019-11-24] MEDS ORDERED: MELATONIN 5 MG TABLET PO SCH (21:00)
[2019-11-24] MEDS: METOPROLOL TARTRATE 25 MG TAB PO SCH (21:20)
[2019-11-25] MEDS: cycloSPORINE 0.05% OPHTH 0.4 ML DROPERETTE BOTH EYES SCH ×2 (00:47→09:02)
[2019-11-25] MEDS: NITROGLYCERIN OINT 1 INCH/GM PACKET TOPICAL SCH ×3 (00:47→11:05)
[2019-11-25] MEDS ORDERED: LEVOTHYROXINE 75 MCG TAB PO SCH (06:30)
[2019-11-25 07:43] VITALS: RESP 16; TEMP 98.3
[2019-11-25] MEDS: METOPROLOL TARTRATE 25 MG TAB PO SCH (07:46)
[2019-11-25 08:52] LABS: T4, Free (Free Thyroxine) 1.14 ng/dL (0.78-2.19)
[2019-11-25] MEDS ORDERED: ASPIRIN 325 MG TAB PO SCH (09:00)
[2019-11-25] MEDS ORDERED: CLOPIDOGREL 75 MG TAB PO SCH (09:00)
--- NOTE | 2019-11-25 11:20 | P.CRDCN ---
History of Present Illness Consult date: 11/25/19 Chief complaint: Dizziness/chest pain History of present illness: This is a very pleasant 64-year-old female patient with a past medical history significant for hypertension as well as history of ruptured aortic aneurysm and status post coiling was performed at [place] presented to the hospital complaining of dizziness as well as chest discomfort. She was in her usual state of health yesterday when she woke up from sleep complaining of warm feeling in the face associated with dizziness but no heart racing or fluttering and no syncope. She describes that she started experiencing "a panic attack". The patient does have a component of underlying anxiety. With that she started experiencing symptoms of chest discomfort. The chest discomfort seems to be atypical. She had the discomfort for few minutes and it was resolved and she continues to be chest pain-free throughout her hospital stay. The discomfort did not radiate to the arms or neck or shoulders and was not associated with sweating or any shortness of breath. No history of coronary artery disease or congestive heart failure or cardiac arrhythmia and the patient never seen by a performance instructor in the past. The EKG showed sinus rhythm without any significant ST or T-wave abnormalities. The cardiac enzymes were checked and came in to be unremarkable. The patient underwent CT angiography of the brain which showed severe stenosis of the proximal left subclavian artery along with stenosis of both vertebral arteries as well as internal carotid arteries. The patient currently is in process of being seen by the neurology service as well as the vascular surgery service. I advised the patient to undergo a stress test to rule out severe underlying coronary artery disease giving her multiple risk factors including peripheral arterial disease but the patient would like to wait at this point. She would like to go home and have the test done as an outpatient. Having said that the patient can get up and around and if she is asymptomatic she might be able to go home and she will be followed as an outpatient to undergo a stress test as an outpatient. Past Medical History Past Medical History: Hearing Disorder / Deafness, Hyperlipidemia, Hypertension, Respiratory Disorder, Thyroid Disorder, Vascular Disorder Additional Past Medical History / Comment(s): 03/2019 brain aneurysm with rupture-went to [facility] and had brain coil and recently had brain stent, meniere's disese/vertigo and had surgery behind R ear, bilateral [place]/wears aides, L ureteral hernia surgically repaired/then scarred causing blockage and had L nephrectomy, murmur, bronchitis, hypothyroid, sinus problems/allergies and recent sinus infection, bronchitis. History of Any Multi-Drug Resistant Organisms: None Reported Past Surgical History: Hysterectomy, Orthopedic Surgery Additional Past Surgical History / Comment(s): Left nephrectomy, brain aneurysm with coil then stent in brain, R behind ear surgery for Meniere's, colonoscopy. Past Anesthesia/Blood Transfusion Reactions: No Reported Reaction Additional Past Anesthesia/Blood Transfusion Reaction / Comment(s): Pt has received blood with misscarriage and when had hysterectomy without reaction. Smoking Status: Former smoker, Never smoker - Past Family History Mother Family Medical History: Hypertension Additional Family Medical History / Comment(s): Mother is . Father Family Medical History: Diabetes Mellitus Additional Family Medical History / Comment(s): Father is Medications and Allergies Home Medications Medication Instructions Recorded Confirmed Type Calcium Carbonate/Vitamin D3 2 tab PO DAILY 09/21/14 11/24/19 History [Calcium 600-Vit D3 400 Tablet] cycloSPORINE [Restasis] 1 drop BOTH EYES BID 09/21/14 11/24/19 History Vitamin E (Dl,Tocopheryl Acet) 400 unit PO DAILY 04/18/19 11/24/19 History [Vitamin E] Levothyroxine Sodium [Synthroid] 75 mcg PO DAILY #30 tab 04/20/19 11/24/19 Rx Simvastatin [Zocor] 10 mg PO HS #30 tab 04/20/19 11/24/19 Rx Aspirin 325 mg PO DAILY 11/24/19 11/24/19 History Cholecalciferol [Vitamin D3 (25 2,000 unit PO DAILY 11/24/19 11/24/19 History Mcg = 1000 Iu)] Clopidogrel Bisulfate [Plavix] 75 mg PO DAILY 11/24/19 11/24/19 History Cyanocobalamin (Vitamin B-12) 1,000 mcg PO DAILY 11/24/19 11/24/19 History [Vitamin B-12] LORazepam [Ativan] 0.5 mg PO BID 11/24/19 11/24/19 History Melatonin 5 mg PO HS 11/24/19 11/24/19 History Metoprolol Tartrate [Lopressor] 25 mg PO BID 11/24/19 11/24/19 History Vitamin B Complex/Folic Acid 1 tab PO DAILY 11/24/19 11/24/19 History [B-Complex Tablet] Women's Multivitamin W/O Iron 1 tab PO DAILY 11/24/19 11/24/19 History amLODIPine [Norvasc] 10 mg PO HS 11/24/19 11/24/19 History Allergies Allergy/AdvReac Type Severity Reaction Status Date / Time clarithromycin [From Biaxin] Allergy Unknown Verified 11/24/19 11:00 clonidine Allergy Swelling Verified 11/24/19 11:00 Iodinated Contrast Media Allergy Unknown Verified 11/24/19 11:00 [Iodinated Contrast Media - IV Dye] levofloxacin [From Levaquin] Allergy Unknown Verified 11/24/19 11:00 methylprednisolone Allergy Rash/Hives Verified 11/24/19 11:00 [From Medrol] moxifloxacin HCl Allergy Unknown Verified 11/24/19 11:00 [From Avelox] Sulfa (Sulfonamide Allergy Unknown Verified 11/24/19 11:00 Antibiotics) ciprofloxacin [From Cipro] AdvReac Rash/Hives Verified 11/24/19 11:00 clindamycin AdvReac HEARTBURN Verified 11/24/19 11:00 doxycycline AdvReac Headache & Verified 11/24/19 11:00 Vomitting nitrofurantoin AdvReac Headache & Verified 11/24/19 11:00 [From Macrobid] Vomitting nitrofurantoin AdvReac Headache & Verified 11/24/19 11:00 macrocrystalline Vomitting [From Macrobid] scopolamine AdvReac Rash/Hives Verified 11/24/19 11:00 [From Transderm-Scop] Physical Exam Vitals: Vital Signs Temp Pulse Pulse Pulse Pulse Resp BP 11/25/19 10:42 11/25/19 07:39 98.3 F 111 H 16 11/25/19 03:00 97.7 F 106 H 18 11/24/19 21:00 99 18 11/24/19 19:47 97.9 F 99 18 11/24/19 14:03 97.7 F 104 H 103 H 90 16 131/70 11/24/19 11:18 97.3 F L 74 16 BP BP BP Pulse Ox 11/25/19 10:42 97 11/25/19 07:39 127/71 11/25/19 03:00 92/64 97 11/24/19 21:00 11/24/19 19:47 127/70 97 11/24/19 14:03 114/69 143/71 99 11/24/19 11:18 152/52 100 Intake and Output 11/24/19 11/25/19 11/25/19 22:59 06:59 14:59 Intake Total 720 Balance 720 Intake: Oral 720 Other: Voiding Method Toilet Toilet # Voids 2 # Bowel Movements 1 - Constitutional General appearance: no acute distress - Respiratory Respiratory: bilateral: CTA - Cardiovascular Rhythm: regular Heart sounds: normal: S1, S2 Results 11/24/19 08:57 11/24/19 08:57 Cardiac Enzymes 11/24/19 11/24/19 Range/Units 11:34 15:23 Troponin I <0.012 <0.012 (0.000-0.034) ng/mL Lipids 11/25/19 Range/Units 06:13 Triglycerides 93 (<150) mg/dL Cholesterol 197 (<200) mg/dL HDL Cholesterol 54 (40-60) mg/dL Current Medications Generic Name Dose Route Start Last Admin Trade Name Freq PRN Reason Stop Dose Admin Amlodipine Besylate 5 mg 11/25/19 21:00 Norvasc PO DAILY ALISIA Aspirin 325 mg 11/25/19 09:00 11/25/19 09:02 Aspirin PO 325 mg DAILY ALISIA Administration Atorvastatin Calcium 10 mg 11/24/19 21:00 11/24/19 21:25 Lipitor PO 10 mg HS ALISIA Administration Clopidogrel Bisulfate 75 mg 11/25/19 09:00 11/25/19 09:02 Plavix PO 75 mg DAILY ALISIA Administration Cyclosporine 1 drops 11/24/19 21:00 11/25/19 09:02 Restasis 0.05% Ophth Soln BOTH EYES 1 drops BID ALISIA Administration Levothyroxine Sodium 75 mcg 11/25/19 06:30 11/25/19 06:24 Synthroid PO 75 mcg DAILY@0630 ALISIA Administration Lorazepam 0.5 mg 11/24/19 21:00 11/24/19 21:25 Ativan PO 0.5 mg BID PRN Administration Anxiety Meclizine HCl 25 mg 11/24/19 10:43 Antivert PO QID PRN Vertigo Melatonin 5 mg 11/24/19 21:00 11/24/19 21:25 Melatonin PO 5 mg HS ALISIA Administration Metoprolol Tartrate 25 mg 11/24/19 21:00 11/25/19 07:46 Lopressor PO 25 mg BID ALISIA Administration Nitroglycerin 0.4 mg 11/24/19 10:42 Nitrostat SUBLINGUAL Q5M PRN Chest Pain Nitroglycerin 1 inch 11/24/19 12:00 11/25/19 11:05 Nitro-Bid Oint TOPICAL Not Given Q6HR ALISIA Intake and Output 11/24/19 11/25/19 11/25/19 22:59 06:59 14:59 Intake Total 720 Balance 720 Intake: Oral 720 Other: Voiding Method Toilet Toilet # Voids 2 # Bowel Movements 1 11/24/19 08:57 11/24/19 08:57 Assessment and Plan Assessment: Assessment #1 symptoms of dizziness and lightheadedness #2 atypical chest pain next #3 peripheral arterial disease Plan #1 acute coronary event was ruled out #2 severe CAD to be ruled out #3 the patient need to have a stress test and she would like to have it done as an outpatient
[2019-11-25] MEDS ORDERED: SODIUM CHLORIDE 0.9% 1,000 ML IV ONE (11:24)
[2019-11-25 12:33] VITALS: BP 127/67; PULSE 91
[2019-11-25 12:51] LABS: Folate, Serum >24.0 ng/mL
--- NOTE | 2019-11-25 13:26 | P.GSCN ---
History of Present Illness Consult date: 11/25/19 Reason for Consult: left subclavian artery stenosis History of present illness: This pleasant 64-year-old female who came to the hospital yesterday because she states she felt like she was spinning and had a sudden onset of vertigo. She states that in the morning she felt very flushed and heavy in the head when she started feeling the dizziness. She called her son who recommended to call [phone]. The patient has a significant past medical history that includes vertigo, was diagnosed with Mnire's disease 2003 and underwent surgery, had a cerebral aneurysm in March 2019, and left subclavian artery stenosis. We been asked to see the patient regarding the left subclavian artery stenosis, which the patient states she is aware she has. She underwent coiling in March [address] Tucker, and she had a recent repeat cerebral angiogram performed on 12/02/2019 in which there is recurrence of the same cerebral aneurysm. Patient underwent pipeline coil embolization at that time. She currently denies any dizziness, shortness of breath, chest pain, feeling flushed or heavy in the head, or headache. She denies any left upper extremity pain, difficulty with moving the left upper extremity, or weakness. Patient states she has bilateral numbness and tingling in her hands. She denies any other focal deficits including slurred speech, visual changes, or difficulty swallowing. Her CT angiogram of head and neck redemonstrated severe stenosis proximal left subclavian artery. Redemonstrated dominant right vertebral artery. Possible moderate arthrosclerotic narrowing at the origin of both vertebral arteries. Mild bilateral proximal ICA stenosis. No hemodynamically significant internal carotid artery stenosis on either side. The head showed interval stenting and embolization of the patient's previous saccular aneurysm along the A2/A3 junction of the anterior cerebral artery. No recurrent aneurysm is seen. Unable to exclude a moderate to severe focal stenosis at the P3 segment left posterior cerebral artery. This appearance is similar to the prior exam in retrospect. Scattered mild arthrosclerotic irregularity within the MCA branches and within the bilateral carotid siphons. Redemonstrated persistent origin right [employer]. CT head shows coil mass at the A2/A3 anterior cerebral artery junction from prior aneurysm coiling. No acute intracranial abnormality seen. Review of Systems A 14 point review of systems was completed and all pertinent positives and negatives as stated in the HPI Past Medical History Past Medical History: Hearing Disorder / Deafness, Hyperlipidemia, Hypertension, Respiratory Disorder, Thyroid Disorder, Vascular Disorder Additional Past Medical History / Comment(s): 03/2019 brain aneurysm with rupture-went to [facility] and had brain coil and recently had brain stent, meniere's disese/vertigo and had surgery behind R ear, bilateral [place]/wears aides, L ureteral hernia surgically repaired/then scarred causing blockage and had L nephrectomy, murmur, bronchitis, hypothyroid, sinus problems/allergies and recent sinus infection, bronchitis. History of Any Multi-Drug Resistant Organisms: None Reported Past Surgical History: Hysterectomy, Orthopedic Surgery Additional Past Surgical History / Comment(s): Left nephrectomy, brain aneurysm with coil then stent in brain, R behind ear surgery for Meniere's, colonoscopy. Past Anesthesia/Blood Transfusion Reactions: No Reported Reaction Additional Past Anesthesia/Blood Transfusion Reaction / Comm: Pt has received blood with misscarriage and when had hysterectomy without reaction. Smoking Status: Former smoker, Never smoker - Past Family History Mother Family Medical History: Hypertension Additional Family Medical History / Comment(s): Mother is . Father Family Medical History: Diabetes Mellitus Additional Family Medical History / Comment(s): Father is Medications and Allergies Home Medications Medication Instructions Recorded Confirmed Type Calcium Carbonate/Vitamin D3 2 tab PO DAILY 09/21/14 11/24/19 History [Calcium 600-Vit D3 400 Tablet] cycloSPORINE [Restasis] 1 drop BOTH EYES BID 09/21/14 11/24/19 History Vitamin E (Dl,Tocopheryl Acet) 400 unit PO DAILY 04/18/19 11/24/19 History [Vitamin E] Levothyroxine Sodium [Synthroid] 75 mcg PO DAILY #30 tab 04/20/19 11/24/19 Rx Simvastatin [Zocor] 10 mg PO HS #30 tab 04/20/19 11/24/19 Rx Aspirin 325 mg PO DAILY 11/24/19 11/24/19 History Cholecalciferol [Vitamin D3 (25 2,000 unit PO DAILY 11/24/19 11/24/19 History Mcg = 1000 Iu)] Clopidogrel Bisulfate [Plavix] 75 mg PO DAILY 11/24/19 11/24/19 History Cyanocobalamin (Vitamin B-12) 1,000 mcg PO DAILY 11/24/19 11/24/19 History [Vitamin B-12] LORazepam [Ativan] 0.5 mg PO BID 11/24/19 11/24/19 History Melatonin 5 mg PO HS 11/24/19 11/24/19 History Metoprolol Tartrate [Lopressor] 25 mg PO BID 11/24/19 11/24/19 History Vitamin B Complex/Folic Acid 1 tab PO DAILY 11/24/19 11/24/19 History [B-Complex Tablet] Women's Multivitamin W/O Iron 1 tab PO DAILY 11/24/19 11/24/19 History amLODIPine [Norvasc] 10 mg PO HS 11/24/19 11/24/19 History Meclizine [Antivert] 25 mg PO QID PRN #60 tab 11/25/19 Rx Nitroglycerin Sl Tabs [Nitrostat] 0.4 mg SUBLINGUAL Q5M PRN #20 tab 11/25/19 Rx Allergies Allergy/AdvReac Type Severity Reaction Status Date / Time clarithromycin [From Biaxin] Allergy Unknown Verified 11/24/19 11:00 clonidine Allergy Swelling Verified 11/24/19 11:00 Iodinated Contrast Media Allergy Unknown Verified 11/24/19 11:00 [Iodinated Contrast Media - IV Dye] levofloxacin [From Levaquin] Allergy Unknown Verified 11/24/19 11:00 methylprednisolone Allergy Rash/Hives Verified 11/24/19 11:00 [From Medrol] moxifloxacin HCl Allergy Unknown Verified 11/24/19 11:00 [From Avelox] Sulfa (Sulfonamide Allergy Unknown Verified 11/24/19 11:00 Antibiotics) ciprofloxacin [From Cipro] AdvReac Rash/Hives Verified 11/24/19 11:00 clindamycin AdvReac HEARTBURN Verified 11/24/19 11:00 doxycycline AdvReac Headache & Verified 11/24/19 11:00 Vomitting nitrofurantoin AdvReac Headache & Verified 11/24/19 11:00 [From Macrobid] Vomitting nitrofurantoin AdvReac Headache & Verified 11/24/19 11:00 macrocrystalline Vomitting [From Macrobid] scopolamine AdvReac Rash/Hives Verified 11/24/19 11:00 [From Transderm-Scop] Surgical - Exam Vital Signs Temp Pulse Resp BP Pulse Ox 98.0 F 93 18 159/73 99 11/24/19 08:37 11/24/19 08:37 11/24/19 08:37 11/24/19 08:37 11/24/19 08:37 General appearance: The patient is alert, oriented, in no acute distress. HET: Head is normocephalic and atraumatic. Pupils are equal and reactive. Neck: Supple. No carotid bruit bilaterally. Heart: S1 S2. Regular rate and rhythm. Lungs: No crackles or wheezes are heard. Extremities: Normal skin color and turgor. No cyanosis, rash, ulceration, clubbing, or edema. Radial 2/4 bilaterally. Full range of motion without any pain of bilateral upper extremities. Normal grasp and strength of bilateral upper extremities. Neurological: No focal deficits. Strength and sensation are grossly intact. Results CT angiogram of head and neck reviewed as stated in HPI CT brain reviewed as stated in HPI - Labs 11/24/19 08:57 11/24/19 08:57 Abnormal Lab Results - Last 24 Hours (Table) 11/24/19 11/24/19 11/24/19 Range/Units 08:57 08:57 08:57 APTT 21.8 L (22.0-30.0) sec Glucose 113 H (74-99) mg/dL TSH 54.000 H (0.465-4.680) mIU/L Diabetes panel 11/24/19 Range/Units 08:57 Sodium 141 (137-145) mmol/L Potassium 3.8 (3.5-5.1) mmol/L Chloride 107 (98-107) mmol/L Carbon Dioxide 27 (22-30) mmol/L BUN 11 (7-17) mg/dL Creatinine 0.73 (0.52-1.04) mg/dL Glucose 113 H (74-99) mg/dL Calcium 9.0 (8.4-10.2) mg/dL AST 30 (14-36) U/L ALT 21 (4-34) U/L Alkaline Phosphatase 71 (38-126) U/L Total Protein 6.4 (6.3-8.2) g/dL Albumin 4.0 (3.5-5.0) g/dL Thyroid panel 11/24/19 Range/Units 08:57 TSH 54.000 H (0.465-4.680) mIU/L Calcium panel 11/24/19 Range/Units 08:57 Calcium 9.0 (8.4-10.2) mg/dL Albumin 4.0 (3.5-5.0) g/dL Pituitary panel 11/24/19 11/24/19 Range/Units 08:57 08:57 Sodium 141 (137-145) mmol/L Potassium 3.8 (3.5-5.1) mmol/L Chloride 107 (98-107) mmol/L Carbon Dioxide 27 (22-30) mmol/L BUN 11 (7-17) mg/dL Creatinine 0.73 (0.52-1.04) mg/dL Glucose 113 H (74-99) mg/dL Calcium 9.0 (8.4-10.2) mg/dL TSH 54.000 H (0.465-4.680) mIU/L Adrenal panel 11/24/19 Range/Units 08:57 Sodium 141 (137-145) mmol/L Potassium 3.8 (3.5-5.1) mmol/L Chloride 107 (98-107) mmol/L Carbon Dioxide 27 (22-30) mmol/L BUN 11 (7-17) mg/dL Creatinine 0.73 (0.52-1.04) mg/dL Glucose 113 H (74-99) mg/dL Calcium 9.0 (8.4-10.2) mg/dL Total Bilirubin 0.5 (0.2-1.3) mg/dL AST 30 (14-36) U/L ALT 21 (4-34) U/L Alkaline Phosphatase 71 (38-126) U/L Total Protein 6.4 (6.3-8.2) g/dL Albumin 4.0 (3.5-5.0) g/dL Assessment and Plan Assessment: 1. Left subclavian artery stenosis 2. Dizziness 3. History of cerebral aneurysm with coiling 4. History of Mnire's disease since 2003 5. Hypertension Plan: Continue with dual antiplatelet medications. Pending cardiology consultation. There are no acute indications at this time for any vascular surgical intervention. Patient to follow-up with Dr. Campos after discharge for further imaging. Patient may be discharged home from a vascular surgery standpoint. Further recommendations to follow. Thank you for this consult and allowing us take part in the plan of care of your patient during her hospital stay. The above dictated assessment and findings were discussed with Dr. Campos. The impression and plan of care have been directed as dictated.
[2019-11-25 14:12] LABS: Hemoglobin A1C 5.5 % (4.0-6.0)
[2019-11-25] MEDS ORDERED: amLODIPine 5 MG TAB PO SCH (21:00)
--- NOTE | 2019-11-26 00:32 | P.DS ---
Providers Date of admission: 11/24/19 10:47 Attending physician: Marcial Gates Consults: 11/24/19 10:42 Consult Physician Urgent Consulting Provider: [facility] Consult Reason/Comments: Chest pain Do you want consulting provider notified?: Yes 11/24/19 13:39 Consult Physician Urgent Consulting Provider: Guanaco Sanon Consult Reason/Comments: Dizziness with previous ruptured aneurysm status post coiling Do you want consulting provider notified?: Yes 11/25/19 06:21 Consult Physician Routine Consulting Provider: Yamileth Campos Consult Reason/Comments: left subclavian art stenosis Do you want consulting provider notified?: Yes Primary care physician: Stated None Hospital Course: Diagnoses: Chest pain, cardiac causes ruled out . Negative stress test. Completely resolved prior to discharge Dizziness, with mild headache. Secondary to positive for orthostatic hypotension. Improved with hydration Hypertension Hypothyroidism Ruptured brain aneurysm status post coiling at [facility]. Severe stenosis of the proximal left subclavian artery Possible severe stenosis of the left posterior cerebral artery Hospital course: This is a pleasant 64 years old female with past medical history of hypertension, hypothyroidism and she follows up with Dr. Yousif, ruptured brain aneurysm status post coiling at [facility] on 03/2019 and she follow up with Dr. Blanc , hyperlipidemia, hearing difficulty. Her PCP is Dr. Tiffanie Lopez. She presents because of chest pain and dizziness. Also she had some mild headache and generalized weakness. Patient has been evaluated by geoscience laboratory technician and neurologist. Her symptoms resolved and she is back to her normal self now. Also patient had hypotension and positive orthostatic for low blood pressure. Patient given a bolus of normal saline 500 mL and her orthostatic vitals improved and back to normal. As per Carrot Harvester the patient need to have a stress test and she would like to have it done as an outpatient. Cardiology cleared her for discharge. Patient was instructed to follow up with Dr. Payan within one to 2 weeks and she was to call and make her own appointment. Patient back to her normal stent and she was eager to leave. Patient was cleared for discharge by all consultants Problems and management plan were discussed with the patient and he verbalized understanding and acceptance Patient was found stable and can be discharged home however he needs follow-up as an outpatient. Patient was instructed to follow up with PCP Dr. Contreras within one week and patient agrees Gen: patient is a AAOx3, no distress CVS: S1-S2, RRR, no murmur Lungs: B/L CTA, no wheezing Abdomen: soft, no distention, no tenderness, positive bowel sounds Extremity: no leg edema or induration Time spent more than 35 minutes Plan - Discharge Summary Discharge Rx Participant: No New Discharge Prescriptions: New Meclizine [Antivert] 25 mg PO QID PRN #60 tab PRN Reason: Vertigo Nitroglycerin Sl Tabs [Nitrostat] 0.4 mg SUBLINGUAL Q5M PRN #20 tab PRN Reason: Chest Pain Continue cycloSPORINE [Restasis] 1 drop BOTH EYES BID Calcium Carbonate/Vitamin D3 [Calcium 600-Vit D3 400 Tablet] 2 tab PO DAILY Vitamin E (Dl,Tocopheryl Acet) [Vitamin E] 400 unit PO DAILY Levothyroxine Sodium [Synthroid] 75 mcg PO DAILY #30 tab Simvastatin [Zocor] 10 mg PO HS #30 tab Women's Multivitamin W/O Iron 1 tab PO DAILY Clopidogrel Bisulfate [Plavix] 75 mg PO DAILY Aspirin 325 mg PO DAILY Cyanocobalamin (Vitamin B-12) [Vitamin B-12] 1,000 mcg PO DAILY Cholecalciferol [Vitamin D3 (25 Mcg = 1000 Iu)] 2,000 unit PO DAILY Vitamin B Complex/Folic Acid [B-Complex Tablet] 1 tab PO DAILY Melatonin 5 mg PO HS LORazepam [Ativan] 0.5 mg PO BID amLODIPine [Norvasc] 10 mg PO HS Metoprolol Tartrate [Lopressor] 25 mg PO BID Discharge Medication List Calcium Carbonate/Vitamin D3 [Calcium 600-Vit D3 400 Tablet] 2 tab PO DAILY 09/21/14 [History] cycloSPORINE [Restasis] 1 drop BOTH EYES BID 09/21/14 [History] Vitamin E (Dl,Tocopheryl Acet) [Vitamin E] 400 unit PO DAILY 04/18/19 [History] Levothyroxine Sodium [Synthroid] 75 mcg PO DAILY #30 tab 04/20/19 [Rx] Simvastatin [Zocor] 10 mg PO HS #30 tab 04/20/19 [Rx] Aspirin 325 mg PO DAILY 11/24/19 [History] Cholecalciferol [Vitamin D3 (25 Mcg = 1000 Iu)] 2,000 unit PO DAILY 11/24/19 [History] Clopidogrel Bisulfate [Plavix] 75 mg PO DAILY 11/24/19 [History] Cyanocobalamin (Vitamin B-12) [Vitamin B-12] 1,000 mcg PO DAILY 11/24/19 [History] LORazepam [Ativan] 0.5 mg PO BID 11/24/19 [History] Melatonin 5 mg PO HS 11/24/19 [History] Metoprolol Tartrate [Lopressor] 25 mg PO BID 11/24/19 [History] Vitamin B Complex/Folic Acid [B-Complex Tablet] 1 tab PO DAILY 11/24/19 [History] Women's Multivitamin W/O Iron 1 tab PO DAILY 11/24/19 [History] amLODIPine [Norvasc] 10 mg PO HS 11/24/19 [History] Meclizine [Antivert] 25 mg PO QID PRN #60 tab 11/25/19 [Rx] Nitroglycerin Sl Tabs [Nitrostat] 0.4 mg SUBLINGUAL Q5M PRN #20 tab 11/25/19 [Rx] Follow up Appointment(s)/Referral(s): Jesus Payan MD [STAFF PHYSICIAN] - 2 Weeks (office will call to schedule ) Yamileth Campos DO [STAFF PHYSICIAN] - 2 Weeks (office closed pt to call and schedule at [phone] ) Sohail Blanc DO [STAFF PHYSICIAN] - 1 Week (office closed call to schedule ) Franca Jim MD [STAFF PHYSICIAN] - 1-2 days (Recheck your (thyroid function tests) and (vitamin B12) level with your primary care doctor has appt on dec 26) Patient Instructions/Handouts: Chest Pain (DC), Vertigo (DC) Activity/Diet/Wound Care/Special Instructions: Heart healthy diet encourage oral hydration with water on and salt, and monitoring her blood pressure Activity is limited till you see your doctor Discharge Disposition: HOME SELF-CARE
== END 2019-11-25 13:01 | disposition home or self-care (01) ==
LOC: EC 08:35 → 3NCARDOBS 10:47
PROVIDERS: ADMIT Internal Medicine; ATTEND Internal Medicine
DX: R07.89 Other chest pain (principal); I95.1 Orthostatic hypotension; H81.01 Meniere's disease, right ear; I10 Essential (primary) hypertension; E03.9 Hypothyroidism, unspecified; I77.1 Stricture of artery; E78.5 Hyperlipidemia, unspecified; H91.90 Unspecified hearing loss, unspecified ear; E16.2 Hypoglycemia, unspecified; F41.9 Anxiety disorder, unspecified; F32.9 Major depressive disorder, single episode, unspecified; F41.0 Panic disorder [episodic paroxysmal anxiety]; R94.39 Abnormal result of other cardiovascular function study; I65.23 Occlusion and stenosis of bilateral carotid arteries; I67.2 Cerebral atherosclerosis; R01.1 Cardiac murmur, unspecified; I73.9 Peripheral vascular disease, unspecified; F17.210 Nicotine dependence, cigarettes, uncomplicated; Z98.890 Other specified postprocedural states; Z86.79 Personal history of other diseases of the circulatory system; Z95.828 Presence of other vascular implants and grafts; Z79.899 Other long term (current) drug therapy; Z88.1 Allergy status to other antibiotic agents; Z88.8 Allergy status to other drugs, medicaments and biological substances; Z91.041 Radiographic dye allergy status; Z88.2 Allergy status to sulfonamides; Z90.710 Acquired absence of both cervix and uterus; Z90.5 Acquired absence of kidney; Z79.82 Long term (current) use of aspirin; Z79.02 Long term (current) use of antithrombotics/antiplatelets; Z97.4 Presence of external hearing-aid; Z87.09 Personal history of other diseases of the respiratory system; Z91.09 Other allergy status, other than to drugs and biological substances; Z87.59 Personal history of other complications of pregnancy, childbirth and the puerperium; Z82.49 Family history of ischemic heart disease and other diseases of the circulatory system; Z83.3 Family history of diabetes mellitus
CPT/HCPCS: 93005 ×2; 96374; 96375; 99285; 36415; 84439; 80061; 80053; 84443; 82607; 82746; 83735; 84484; 85025; 85610; 85730; 83036; 71046; 70496; 70450; 70498; G0378 ×2; J1200; J2930; Q9967

== ENCOUNTER → 2020-02-03 | Outpatient (CLI) | payer MEDICARE ==
[2020-02-03 11:32] LABS: HCT 42.7 % (34.0-46.0); MCH 29.7 pg (25.0-35.0); MCHC 32.8 g/dL (31.0-37.0); MCV 90.6 fL (80.0-100.0); Mean Platelet Volume 7.2; Platelet Count 268 k/uL (150-450); RBC 4.71 m/uL (3.80-5.40); RDW 12.5 % (11.5-15.5); WBC 6.4 k/uL (3.8-10.6)
[2020-02-03 15:16] LABS: African American GFR (CKD) 68.5 (60.0-200.0); Albumin 4.5 g/dL (3.80-4.90); Albumin/Globulin Ratio 2.14 (1.60-3.17); Anion Gap 8.9 mmol/L (4.00-12.00); Calcium 9.7 mg/dL (8.7-10.3); Carbon Dioxide 25.1 mmol/L (21.6-31.8); Globulin 2.1 g/dL (1.6-3.3); Non-African American GFR(CKD) 59.1 (60.0-200.0); Potassium 4.7 mmol/L (3.5-5.5); Total Bilirubin 0.5 mg/dL (0.3-1.2); Total Protein 6.6 g/dL (6.2-8.2)
== END | disposition home or self-care (01) ==
LOC: LABWHC1 01-20 12:35
PROVIDERS: ATTEND Nurse Practitioner Critical Care Medicine
DX: G62.9 Polyneuropathy, unspecified (principal); I63.9 Cerebral infarction, unspecified
CPT/HCPCS: 36415; 80053; 82607; 83036; 84443; 85027

== ENCOUNTER → 2020-02-16 | Outpatient (CLI) | payer MEDICARE ==
--- NOTE | 2020-02-17 13:42 | MM ---
Reason for exam: screening (asymptomatic). Last mammogram was performed 1 year and 7 months ago. History: Patient is postmenopausal. Family history of breast cancer in sister. Benign excisional biopsy of the right breast, 1997. Took estrogen for 23 years beginning at age 27. Physical Findings: A clinical breast exam by your physician is recommended on an annual basis and results should be correlated with mammographic findings. MG 3D Screening Mammo W/Cad Bilateral CC, MLO, and XCCL view(s) were taken. Prior study comparison: July 20, 2018, bilateral MG 3d screening mammo w/cad. July 03, 2017, bilateral MG 3d screening mammo w/cad. The breast tissue is heterogeneously dense. This may lower the sensitivity of mammography. No significant changes when compared with prior studies. ASSESSMENT: Benign, BI-RAD 2 RECOMMENDATION: Routine screening mammogram of both breasts in 1 year.
== END | disposition home or self-care (01) ==
LOC: RADMAMWWP 11:33
PROVIDERS: ATTEND Obstetrics & Gynecology
DX: Z12.31 Encounter for screening mammogram for malignant neoplasm of breast (principal)
CPT/HCPCS: 77063; 77067

== ENCOUNTER → 2020-04-02 | Outpatient (CLI) | payer MEDICARE ==
--- NOTE | 2020-04-02 11:47 | CT ---
EXAMINATION TYPE: CT chest wo con DATE OF EXAM: 04/02/2020 COMPARISON: None HISTORY: 64-year-old female R91.1, Lung Nodule TECHNIQUE: Contiguous axial scanning of the chest without IV contrast. Coronal and sagittal reconstru ctions performed. CT DLP: 218 mGycm Automated exposure control for dose reduction was used. FINDINGS: Heart normal size without pericardial effusion. Mild aortic valve and LAD and circumflex coronary art morena calcifications are present. Mild scattered calcifications aortic arch and descending thoracic aorta. No thoracic lymphadenopathy by CT size criteria. Biapical pleural parenchymal scarring. 6 mm anterior right midlung pulmonary nodule, axial image 28. 4 mm peripheral right midlung pulmonary nodule, axial image 27. 3 mm peripheral left upper lobe pulmonary nodule, axial image 13. 3 mm left mid lung pulmonary nodule, axial image 27. No consolidation or pleural effusion. Mild dependent atelectasis. Surgical clips within the left nephrectomy bed. More mild to moderate atelectatic calcifications abdo franchesca aorta. Mild endplate spondylosis mid and lower thoracic spine. IMPRESSION: 1. A FEW PULMONARY NODULES MEASURING UP TO 6 MM. A 6-12 MON[address] FOLLOW-UP CT RECOMMENDED TO REASSESS. 2. INCIDENTAL CHANGES OF PRIOR LEFT NEPHRECTOMY.
== END | disposition home or self-care (01) ==
LOC: RADCTMAIN 06:43
PROVIDERS: ATTEND Family Medicine
DX: R91.8 Other nonspecific abnormal finding of lung field (principal)
CPT/HCPCS: 71250

== ENCOUNTER → 2020-10-26 | Outpatient (CLI) | payer MEDICARE ==
--- NOTE | 2020-10-26 16:09 | CT ---
EXAMINATION TYPE: CT chest wo con DATE OF EXAM: 10/26/2020 COMPARISON: 04/02/2020 HISTORY: difficulty breathing CT DLP: 198 mGycm, Automated exposure control for dose reduction was used. CONTRAST: None TECHNIQUE: Axial images were obtained at 1 mm thick sections at 10 mm intervals. This will limit po rtions of the examination which may not be visualized within the [id number]. Images were obtained in the prone and supine views. FINDINGS: No suspicious lung nodules or focal infiltrates are present. Appears to be some scarring at the lung apices. No enlarged mediastinal or hilar adenopathy is evident. Scattered small lymph nodes are present. Th ere is some coronary artery calcification present. The ascending aorta diameter at the level of the m ain pulmonary artery is 3.1 cm. The main pulmonary artery diameter at the bifurcation is 2.[address] sections are obtained through the upper abdomen. Abdomen is essentially unremarkable. IMPRESSIONS: 1. No acute suspicious changes high-resolution CT chest. 2. Previous Nodules are not identified. Consider low-dose CT chest for closer evaluation.
--- NOTE | 2020-10-26 17:34 | ECHOF ---
Referral Reason:R06.2 Shortness of breath MEASUREMENTS -------- HEIGHT: 0.0 cm WEIGHT: 0.0 kg BP: RVIDd: 2.1 cm (< 3.3) IVSd: 1.4 cm (0.6 - 1.1) LVIDd: 2.9 cm (3.9 - 5.3) LVPWd: 1.3 cm (0.6 - 1.1) IVSs: 1.8 cm LVIDs: 1.7 cm LVPWs: 1.7 cm Ao Diam: 2.7 cm (2.0 - 3.7) AV Cusp: 1.5 cm (1.5 - 2.6) LA Diam: 3.4 cm (2.7 - 3.8) MV EXCURSION: 12.842 mm (> 18.000) MV EF SLOPE: 83 mm/s (70 - 150) EPSS: 0.8 cm MV E Gumaro: 0.99 m/s MV DecT: 230 ms MV A Gumaro: 0.96 m/s MV E/A Ratio: 1.03 RAP: 5.00 mmHg RVSP: 11.77 mmHg FINDINGS -------- This was a technically good study. The left ventricular size is normal. Left ventricular wall thickness is normal. Overall left vent ricular systolic function is normal with, an EF between 55 - 60 %. The diastolic filling pattern is normal for the age of the patient 10.. The right ventricle is normal in size. The left atrial size is normal. Normal LA size by volume 22+/-6 ml/m2. The right atrial size is normal. The aortic valve is trileaflet and appears structurally normal. The mitral valve is normal. Mild mitral regurgitation is present. The tricuspid valve appears structurally normal. Mild tricuspid regurgitation present. Right vent ricular systolic pressure is normal at < 35 mmHg. There is no pulmonic regurgitation present. The aortic root size is normal. Normal inferior vena cava with normal inspiratory collapse consistent with estimated right atrial pre ssure of 5 mmHg. There is no pericardial effusion. CONCLUSIONS -------- 1. The left ventricular size is normal. 2. Left ventricular wall thickness is normal. 3. Overall left ventricular systolic function is normal with, an EF between 55 - 60 %. 4. The diastolic filling pattern is normal for the age of the patient 10. 5. Mild mitral regurgitation is present. 6. Mild tricuspid regurgitation present. 7. There is no pericardial effusion. SHIPPING AND RECEIVING ASSOCIATE: Zarina Del Rio RDCS
== END | disposition home or self-care (01) ==
LOC: RADCTMAIN 13:13
PROVIDERS: ATTEND Family Medicine
DX: I08.1 Rheumatic disorders of both mitral and tricuspid valves (principal)
CPT/HCPCS: 71250; 93306

== ENCOUNTER → 2021-02-18 | Outpatient (CLI) | payer MEDICARE ==
--- NOTE | 2021-02-20 09:33 | MM ---
Reason for exam: screening (asymptomatic). Last mammogram was performed 1 year ago. History: Patient is postmenopausal. Family history of breast cancer in sister. Benign excisional biopsy of the right breast, 1997. Took estrogen for 23 years beginning at age 27. Physical Findings: A clinical breast exam by your physician is recommended on an annual basis and results should be correlated with mammographic findings. MG 3D Screening Mammo W/Cad Bilateral CC and MLO view(s) were taken. Prior study comparison: February 16, 2020, bilateral MG 3d screening mammo w/cad. July 20, 2018, bilateral MG 3d screening mammo w/cad. The breast tissue is heterogeneously dense. This may lower the sensitivity of mammography. Finding: There is a 12 mm equal density (isodense) mass in the upper outer quadrant of the right breast. ASSESSMENT: Incomplete: need additional imaging evaluation, BI-RAD 0 RECOMMENDATION: Special view mammogram of the right breast. If lesion persists on supplemental views, image directed ultrasound is recommended. [facility] will attempt to contact patient to return for supplemental views and ultrasound if indicated.
== END | disposition home or self-care (01) ==
LOC: RADMAMWWP 09:37
PROVIDERS: ATTEND Obstetrics & Gynecology
DX: Z12.31 Encounter for screening mammogram for malignant neoplasm of breast (principal); Z80.3 Family history of malignant neoplasm of breast
CPT/HCPCS: 77063; 77067

== ENCOUNTER → 2021-02-22 | Outpatient (CLI) | payer MEDICARE ==
--- NOTE | 2021-02-22 12:15 | MM ---
Reason for exam: additional evaluation requested from abnormal screening. Last mammogram was performed less than 1 month ago. History: Patient is postmenopausal. Family history of breast cancer in sister. Benign excisional biopsy of the right breast, 1997. Took estrogen for 23 years beginning at age 27. Physical Findings: Nurse did not find any significant physical abnormalities on exam. MG 3D Work Up W/Cad RT Spot compression CC, spot compression MLO, and LM view(s) were taken of the right breast. Prior study comparison: February 18, 2021, bilateral MG 3d screening mammo w/cad. February 16, 2020, bilateral MG 3d screening mammo w/cad. The breast tissue is heterogeneously dense. This may lower the sensitivity of mammography. The upper outer quadrant focal asymmetry disperses on additional views. No significant new findings when compared with previous films. These results were verbally communicated with the patient and result sheet given to the patient on 02/22/21. ASSESSMENT: Benign, BI-RAD 2 RECOMMENDATION: Return to routine screening mammogram schedule for both breasts.
== END | disposition home or self-care (01) ==
LOC: RADMAMWWP 10:14
PROVIDERS: ATTEND Obstetrics & Gynecology
DX: R92.2 Inconclusive mammogram (principal); N64.89 Other specified disorders of breast; Z80.3 Family history of malignant neoplasm of breast; Z78.0 Asymptomatic menopausal state
CPT/HCPCS: 77065; G0279; 77061

== ENCOUNTER → 2021-07-01 | Outpatient (CLI) | payer MEDICARE ==
--- NOTE | 2021-07-01 21:22 | CT ---
EXAMINATION TYPE: CT sinus wo con DATE OF EXAM: 07/01/2021 COMPARISON: CT facial bones July 26, 2018. HISTORY: sinus congestion CT DLP: 587.5 mGycm. Automated Exposure Control for Dose Reduction was Utilized. TECHNIQUE: CT scan of the sinuses is performed without contrast, axial images are obtained, coronal r eformatted images are also reviewed. FINDINGS: Redemonstration of hypoplastic or non-formed right frontal sinus. Remainder of paranasal si nuses are clear without abnormal opacification or air-fluid levels The ostiomeatal complex remains pa tent bilaterally on the coronal images. Visualized portion of mastoid air cells show no abnormal opacification. The globes are intact bilate rally. Artifact from aneurysm coil overlying the anterior interhemispheric fissure is now present ne w from 2019 study. IMPRESSION: The paranasal sinuses remain clear and the ostiomeatal complex remains patent bilaterally .
== END | disposition home or self-care (01) ==
LOC: RADCTMAIN 18:05
PROVIDERS: ATTEND Family Medicine
DX: J32.9 Chronic sinusitis, unspecified (principal)
CPT/HCPCS: 70486

== ENCOUNTER → 2021-08-19 | Outpatient (CLI) | payer MEDICARE ==
--- NOTE | 2021-08-19 11:33 | CT ---
EXAMINATION TYPE: CT chest wo con DATE OF EXAM: 08/19/2021 COMPARISON: Prior CT is October 26, 2020 and April 02, 2020 HISTORY: Abnormal findings of lung field CT DLP: 515 mGycm. Automated Exposure Control for Dose Reduction was Utilized. TECHNIQUE: CT scan of the thorax is performed without IV contrast. FINDINGS: LUNGS: [id number] biapical pleural/parenchymal scarring is redemonstrated. There is stable 5 to 6 mm anterior right mid lung nodule axial image 31. Smaller nodules measuring under 5 mm are redemon strated without interval enlargement. No new or enlarging nodules or masses measuring 5 mm or greater . No focal consolidation. No pleural effusion or pneumothorax seen. Tracheobronchial tree is patent. MEDIASTINUM: Lack of IV contrast is noted to limit evaluation for mediastinal and especially hilar ad enopathy. There are prominent but subcentimeter lymph nodes in the prevascular space along with the p aratracheal region redemonstrated. No cardiomegaly or pericardial effusion is seen. Coronary artery calcification again seen which is noted marker for underlying coronary artery disease. Mild to moder ate calcified plaque of the aorta extends into branch vessels. There is bovine type aortic arch which is normal variant noted. OTHER: Left kidney is surgically absent. IMPRESSION: Stable small bilateral pulmonary nodules. No new or enlarging nodules or masses.
== END | disposition home or self-care (01) ==
LOC: RADCTMAIN 08:38
PROVIDERS: ATTEND Family Medicine
DX: R91.8 Other nonspecific abnormal finding of lung field (principal)
CPT/HCPCS: 71250

== ENCOUNTER → 2022-02-19 | Outpatient (CLI) | payer MEDICARE ==
--- NOTE | 2022-02-19 14:25 | BD ---
EXAMINATION TYPE: Axial Bone Density DATE OF EXAM: 02/19/2022 COMPARISON: BASELINE CLINICAL HISTORY: 66 years old Female. ICD-10 CODE: Z78.0 ASYMPTOMATIC MENOPAUSAL STATE N95.1 Height: 65 Weight: 148 FRAX RISK QUESTIONS: Family History (Parent hip fracture): NO History of Fracture in Adulthood: NO Secondary Osteoporosis: YES 3. Menopause before 45: YES RISK FACTORS HISTORY OF: Family History of Osteoporosis: NO Active: YES Diet low in dairy products/other sources of calcium: NO Postmenopausal woman: YES Lost more than 2 inches in height since high school: NO MEDICATIONS: Thyroid Medications: YES Which medication: Synthroid How Lon PLUS YEARS Additional Medications: YES ATIVAN ,PLAVIX , CHOLESTEROL MEDS, HBP , RESTASIS EYE MEDS, CALCIUM , VIT D EXAM MEASUREMENTS: Bone mineral densitometry was performed using the SiOx System. Bone mineral density as measured about the Lumbar spine is: ----- L1-L4(G/cm2): 1.020 T Score Values are as follows: ----- L1: -1.0 ----- L2: -1.6 ----- L3: -1.6 ----- L4: -1.3 ----- L1-L4: -1.3 Bone mineral density BASELINE Bone mineral density about the R hip (g/cm2): 0.976 Bone mineral density about the L hip (g/cm2): 1.000 T Score values are as follows: -----R Neck: -1.5 -----L Neck: -1.3 -----R Total: -0.3 -----L Total: -0.1 Bone mineral density BASELINE FRAX%s: The graph provided illustrates a 9.5% chance for a major osteoporotic fx and a 1.2% chance fo r the hips probability for fx in 10 years time. IMPRESSION: Osteopenia (T Score between -2.5 and -1). There is slightly increased risk of fracture and the patient may be considered for treatment. Re-Screen 2-5 years. NOTE: T-SCORE=SD OF THE YOUNG ADULT MEAN.
== END | disposition home or self-care (01) ==
LOC: RADBDWWP 10:57
PROVIDERS: ATTEND Obstetrics & Gynecology
DX: M85.89 Other specified disorders of bone density and structure, multiple sites (principal); Z78.0 Asymptomatic menopausal state
CPT/HCPCS: 77080

== ENCOUNTER → 2022-06-17 | Outpatient (CLI) | payer MEDICARE ==
--- NOTE | 2022-06-18 09:09 | MM ---
Reason for Exam: Screening (asymptomatic). Last mammogram was performed 1 year(s) and 4 month(s) ago. Patient History: Menarche at age 11. First Full-Term at age 24. Left ovary removed at age 27. Right ovary removed at age 27. Hysterectomy at age 27. Postmenopausal. Estrogen, starting at age 27 for 23 years. 1997, Benign Excisional Biopsy on the right side. Sister had breast cancer. Risk Values: Barbara 5 year model risk: 3.9%. NCI Lifetime model risk: 13.0%. Prior Study Comparison: 02/16/2020 Bilateral Screening Mammogram, [facility]. 02/18/2021 Bilateral Screening Mammogram, [facility]. 02/22/2021 Right Diagnostic Mammogram, [facility]. Tissue Density: The breast tissue is heterogeneously dense. This may lower the sensitivity of mammography. Analyzed By CAD. Overall Assessment: Benign, BI-RAD 2 Management: Screening Mammogram of both breasts in 1 year. Electronically signed and approved by: Maciel Haile M.D.
== END | disposition home or self-care (01) ==
LOC: RADMAMWWP 13:03
PROVIDERS: ATTEND Obstetrics & Gynecology
DX: Z12.31 Encounter for screening mammogram for malignant neoplasm of breast (principal); Z78.0 Asymptomatic menopausal state; Z80.3 Family history of malignant neoplasm of breast
CPT/HCPCS: 77063; 77067

== ENCOUNTER → 2022-10-20 | Outpatient (CLI) | payer MEDICARE ==
--- NOTE | 2022-10-20 12:55 | CT ---
EXAMINATION TYPE: CT chest wo con DATE OF EXAM: 10/20/2022 COMPARISON: 08/19/2021 HISTORY: nodules CT DLP: 230.[address] of the chest was performed with lung and mediastinal window settings submitted. The la ck of contrast limits evaluation of the vascular, mediastinal and parenchymal structures including th e upper abdomen. LUNGS: The lungs are clear and free of infiltrate. No atelectasis. [id number] biapical pleural /parenchymal scarring is again noted. There is stable 5 anterior right mid lung nodule axial image 34 . Smaller nodules measuring under 5 mm are redemonstrated without interval enlargement. No new or enl arging nodules or masses measuring 5 mm or greater. No pleural effusion. No CT evidence of interstit ial lung disease. MEDIASTINUM/FAREED: Thoracic aorta is of normal caliber with limited evaluation given lack of contrast . The heart is not enlarged. No evidence for mediastinal mass. No lymph nodes greater than 1cm. UPPER ABDOMEN: No significant abnormality is seen. OTHER: No significant other abnormality. IMPRESSION: 1. Stable scattered pulmonary nodules. Stability over a 2 year time frame is recommended radiographi demar.
== END | disposition home or self-care (01) ==
LOC: RADCTMAIN 11:51
PROVIDERS: ATTEND Family Medicine
DX: R91.8 Other nonspecific abnormal finding of lung field (principal)
CPT/HCPCS: 71250

== ENCOUNTER → 2023-06-22 | Outpatient (CLI) | payer MEDICARE ==
--- NOTE | 2023-06-24 12:53 | MM ---
Reason for Exam: Screening (asymptomatic). Last screening mammogram was performed 12 month(s) ago. Patient History: Menarche at age 11. First Full-Term at age 24. Left ovary removed at age 27. Right ovary removed at age 27. Hysterectomy at age 27. Postmenopausal. Estrogen, starting at age 27 for 23 years. 1997, Benign Excisional Biopsy on the right side. Sister had breast cancer, age 55. Risk Values: Barbara 5 year model risk: 4.0%. NCI Lifetime model risk: 11.9%. Prior Study Comparison: 02/18/2021 Bilateral Screening Mammogram, [facility]. 02/22/2021 Right Diagnostic Mammogram, [facility]. 06/17/2022 Bilateral MG 3D screening mammo w/cad, [facility]. Tissue Density: The breasts are almost entirely fatty. Findings: Analyzed By CAD. There is no suspicious group of microcalcifications or new suspicious mass. Overall Assessment: Negative, BI-RAD 1 Management: Screening Mammogram of both breasts in [address] [facility] will attempt to contact patient to return for supplemental views and ultrasound if indicated. Patient should continue monthly self-breast exams. A clinical breast exam by your physician is recommended on an annual basis. This exam should not preclude additional follow-up of suspicious palpable abnormalities. Note on Barbara scores and lifetime risk: 1. A Barbara score greater than 3% is considered moderate risk. If this is the case, consider specialist referral to assess eligibility for a risk reducing agent. 2. If overall lifetime risk for the development of breast cancer is 20% or higher, the patient may qualify for future screening with alternating mammogram and breast MRI. Electronically signed and approved by: Sam Taylor DO
== END | disposition home or self-care (01) ==
LOC: RADMAMWWP 12:47
PROVIDERS: ATTEND Family Medicine
DX: Z12.31 Encounter for screening mammogram for malignant neoplasm of breast (principal); Z78.0 Asymptomatic menopausal state; Z80.3 Family history of malignant neoplasm of breast
CPT/HCPCS: 77063; 77067

== ENCOUNTER → 2023-12-30 | Outpatient (CLI) | payer MEDICARE ==
--- NOTE | 2023-12-30 15:07 | CT ---
EXAMINATION TYPE: CT chest wo con CT DLP: 451.2 mGycm, Automated exposure control for dose reduction was used. DATE OF EXAM: 12/30/2023 1:23 PM COMPARISON: Multiple CT chest with most recent 10/20/2022. CLINICAL INDICATION:Female, 68 years old with history of R91.8 ABNORMAL FINDING OF LUNG FIELD; PHH, f /u nodules TECHNIQUE: Multiple axial images were obtained through the chest without IV contrast. Lack of IV or o ral contrast limits evaluation of solid and hollow organ viscera. . Coronal and sagittal reformats re viewed. FINDINGS: LUNGS/ PLEURA: Moderate biapical pleural parenchymal scarring redemonstrated. No pleural effusion, p neumothorax, or focal consolidation. Stable anterior right midlung 5.3 mm pulmonary nodule (series 4, image 33). Additional scattered small nodules measuring less than 5 mm without interval enlargement. No new or enlarging pulmonary nodules or masses. AIRWAY: Patent and unremarkable.. HEART: Size within normal limits. No pericardial effusion. Coronary artery calcifications are again s een which is noted marker for underlying coronary disease. MEDIASTINUM: No gross evidence of adenopathy measuring greater than 1 cm short axis. VASCULATURE: No aortic aneurysm. Mild to moderate atherosclerotic plaque of the aorta extending into branch vessels. Bovine type aortic arch which is normal variant noted. MUSCULOSKELETAL: No acute osseous abnormalities. No aggressive osseous lesion. SOFT TISSUES/LYMPH NODES: Unremarkable. LOWER NECK: Thyroid gland is surgically absent versus atrophic. UPPER ABDOMEN: Left kidney is surgically absent. IMPRESSION: Stable small bilateral pulmonary nodules. No new or enlarging nodules or masses. Stability for at [address] 2 years suggests benign pulmonary nodules. [facility], , 12/30/2023 3:05 PM
== END | disposition home or self-care (01) ==
LOC: RADCTMAIN 12:42
PROVIDERS: ATTEND Family Medicine
DX: R91.8 Other nonspecific abnormal finding of lung field (principal)
CPT/HCPCS: 71250

== ENCOUNTER → 2024-03-07 | Outpatient (CLI) | payer MEDICARE ==
[2024-03-07 16:02] LABS: BUN/Creat Ratio 13.67 Ratio (12.00-20.00); Blood Urea Nitrogen 12.3 mg/dL (9.0-27.0); Calcium 9.5 mg/dL (8.7-10.3); Carbon Dioxide 25.5 mmol/L (21.6-31.8); Chloride 104 mmol/L (96-109); Glucose 122 mg/dL (70-110); Potassium 3.6 mmol/L (3.5-5.5); Sodium 143 mmol/L (135-145)
== END | disposition home or self-care (01) ==
LOC: LABWHC1 10:24
PROVIDERS: ATTEND Internal Medicine Nephrology
DX: N18.2 Chronic kidney disease, stage 2 (mild) (principal)
CPT/HCPCS: 36415; 80048

== ENCOUNTER 2024-03-09 04:41 | Inpatient (IN) | payer MEDICARE ==
[2024-03-09 05:11] LABS: Basophils # (A) 0.1 k/uL (0-0.2); Basophils % (A) 1 %; Eosinophils # (A) 0.1 k/uL (0-0.7); Eosinophils % (A) 2 %; HCT 46.6 % (34.0-46.0); Lymphocytes # (A) 2.1 k/uL (1.0-4.8); Lymphocytes % (A) 34 %; MCH 29.7 pg (25.0-35.0); MCHC 34.2 g/dL (31.0-37.0); MCV 86.6 fL (80.0-100.0); Mean Platelet Volume 7.1; Monocytes # (A) 0.4 k/uL (0-1.0); Monocytes % (A) 7 %; Neutrophils # (A) 3.1 k/uL (1.3-7.7); Neutrophils % (A) 52 %; Platelet Count 242 k/uL (150-450); RBC 5.39 m/uL (3.80-5.40); RDW 12.5 % (11.5-15.5)
[2024-03-09 05:17] LABS: ALT 30 U/L (4-34); AST 90 U/L (14-36); African American GFR (CKD) 87 (>60 ml/min/1.73 sqM); Albumin 5.2 g/dL (3.5-5.0); Alkaline Phosphatase 103 U/L (38-126); Anion Gap 12 mmol/L; Blood Urea Nitrogen 15 mg/dL (7-17); Carbon Dioxide 20 mmol/L (22-30); Chloride 110 mmol/L (98-107); Glucose 139 mg/dL (74-99); Lipase 169 U/L (23-300); Magnesium 2.1 mg/dL (1.6-2.3); Non-African American GFR(CKD) 76 (>60 ml/min/1.73 sqM); Sodium 142 mmol/L (137-145); Total Bilirubin 1.6 mg/dL (0.2-1.3); Total Protein 8.9 g/dL (6.3-8.2)
[2024-03-09 05:19] LABS: Potassium 5.4 mmol/L (3.5-5.1)
[2024-03-09 05:25] LABS: NT-Pro-B-Type Natriuretic Pept 281 pg/mL
--- NOTE | 2024-03-09 05:27 | XR ---
EXAMINATION TYPE: XR chest 2V DATE OF EXAM: 03/09/2024 CLINICAL HISTORY: Chest pain TECHNIQUE: Frontal and lateral views of the chest are obtained. COMPARISON: Chest CT December 30, 2023 FINDINGS: Overlying EKG leads on the current study. There is no suspicious focal air space opacity, p leural effusion, or pneumothorax seen. The cardiac silhouette size remains within normal limits. T he osseous structures are intact. Surgical clips in the central upper to mid abdomen are partially im aged. IMPRESSION: No acute process. [facility], , 03/09/2024 5:24 AM
[2024-03-09 05:31] LABS: INR 0.9 (<1.2); Partial Thromboplastin Time 25.6 sec (22.0-30.0); Prothrombin Time 10.1 sec (10.0-12.5)
[2024-03-09] MEDS: diphenhydrAMINE 50 MG/ML 1 ML VIAL IVP STA ×2 (06:30→10:40)
[2024-03-09] MEDS: FAMOTIDINE 20 MG/2 ML VIAL IV STA (06:30)
--- NOTE | 2024-03-09 07:52 | ED ---
Chest Pain HPI - General Stated Complaint: Chest pain Time Seen by Provider: 03/09/24 04:45 Source: EMS Mode of arrival: EMS - History of Present Illness Initial Comments: 68-year-old female with past medical history of hypertension, aneurysm with rupture who presents emergency department with rapid heart rate. Patient states that yesterday she was having some pain in her left maxillary region. Patient has concern for sinus infection. States that it is causing her to have a headache. She has been checking her blood pressure at home due to her history of hypertension and found that her blood pressure was high. She thought the headaches were caused by the high blood pressure. She has been taking all of her medications as they are instructed. When the patient woke in the middle the night she had a rapid heart rate. Denies history of irregular heart rhythms in the past. She does admit to some chest pressure when the rapid heart rate was going on . EMS completed a rhythm strip which demonstrated A-fib. Patient denies history of. She does take Plavix but no anticoagulants. Patient spontaneously converted for EMS. She denies shortness of breath. Does have a history of thyroid disease and takes replacement. She denies visual disturbance. No speech deficit. No other alleviating, precipitating roughing factors - Related Data Home Medications Medication Instructions Recorded Confirmed Calcium Carbonate/Vitamin D3 2 tab PO DAILY 09/21/14 03/09/24 [Calcium 600-Vit D3 400 Tablet] cycloSPORINE [Restasis] 1 drop BOTH EYES BID 09/21/14 03/09/24 Vitamin E (Dl,Tocopheryl Acet) 400 unit PO DAILY 04/18/19 03/09/24 [Vitamin E (400 Iu = 180 mg)] Clopidogrel Bisulfate [Plavix] 75 mg PO DAILY 11/24/19 03/09/24 Cyanocobalamin (Vitamin B-12) 1,000 mcg PO DAILY 11/24/19 03/09/24 [Vitamin B-12] LORazepam [Ativan] 0.5 mg PO BID 11/24/19 03/09/24 Vitamin B Complex/Folic Acid 1 tab PO DAILY 11/24/19 03/09/24 [B-Complex Tablet] Levothyroxine Sodium [Synthroid] 88 mcg PO DAILY 03/09/24 03/09/24 Metoprolol Tartrate [Lopressor] 75 mg PO BID 03/09/24 03/09/24 Multivit-Min/Iron/Folic/Lutein 1 tab PO DAILY 03/09/24 03/09/24 [Centrum Silver Women Tablet] Pitavastatin Calcium [Livalo] 1 mg PO HS 03/09/24 03/09/24 amLODIPine [Norvasc] 5 mg PO BID 03/09/24 03/09/24 Allergies Allergy/AdvReac Type Severity Reaction Status Date / Time clarithromycin [From Biaxin] Allergy Unknown Verified 03/09/24 08:27 clonidine Allergy Swelling Verified 03/09/24 08:27 Iodinated Contrast Media Allergy Unknown Verified 03/09/24 08:27 [Iodinated Contrast Media - IV Dye] levofloxacin [From Levaquin] Allergy Unknown Verified 03/09/24 08:27 methylprednisolone Allergy Rash/Hives Verified 03/09/24 08:27 [From Medrol] moxifloxacin HCl Allergy Unknown Verified 03/09/24 08:27 [From Avelox] scopolamine Allergy Rash/Hives Verified 03/09/24 08:27 [From Transderm-Scop] Sulfa (Sulfonamide Allergy Unknown Verified 03/09/24 08:27 Antibiotics) ciprofloxacin [From Cipro] AdvReac Rash/Hives Verified 03/09/24 08:27 clindamycin AdvReac HEARTBURN Verified 03/09/24 08:27 doxycycline AdvReac Headache & Verified 03/09/24 08:27 Vomitting nitrofurantoin AdvReac Headache & Verified 03/09/24 08:27 [From Macrobid] Vomitting nitrofurantoin AdvReac Headache & Verified 03/09/24 08:27 macrocrystalline Vomitting [From Macrobid] Review of Systems ROS Statement: Those systems with pertinent positive or pertinent negative responses have been documented in the HPI. ROS Other: All systems not noted in ROS Statement are negative. 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 History of Any Multi-Drug Resistant Organisms: None Reported Past Surgical History: Hysterectomy, Orthopedic Surgery Additional Past Surgical History / Comment(s): Left nephrectomy, brain aneurysm with coil then stent in brain, R behind ear surgery for Meniere's, colonoscopy. Past Anesthesia/Blood Transfusion Reactions: No Reported Reaction Additional Past Anesthesia/Blood Transfusion Reaction / Comment(s): Pt has recei casie blood with misscarriage and when had hysterectomy without reaction. Past Psychological History: Anxiety, Depression, Panic Disorder Smoking Status: Former smoker - Past Family History Mother Family Medical History: Hypertension Additional Family Medical History / Comment(s): Mother is . Father Family Medical History: Diabetes Mellitus Additional Family Medical History / Comment(s): Father is General Exam General appearance: alert, in no apparent distress Head exam: Present: atraumatic, normocephalic, normal inspection Eye exam: Present: normal appearance, PERRL, EOMI. Absent: scleral icterus, conjunctival injection, periorbital swelling ENT exam: Present: normal exam, mucous membranes moist Neck exam: Present: normal inspection. Absent: tenderness, meningismus, lymphadenopathy Respiratory exam: Present: normal lung sounds bilaterally. Absent: respiratory distress, wheezes, rales, rhonchi, stridor Cardiovascular Exam: Present: regular rate, normal rhythm, normal heart sounds. Absent: systolic murmur, diastolic murmur, rubs, gallop, clicks GI/Abdominal exam: Present: soft, normal bowel sounds. Absent: distended, tenderness, guarding, rebound, rigid Extremities exam: Present: normal inspection, full ROM, normal capillary refill. Absent: tenderness, pedal edema, joint swelling, calf tenderness Back exam: Present: normal inspection Neurological exam: Present: alert, oriented X3, CN II-XII intact Psychiatric exam: Present: normal affect, normal mood Skin exam: Present: warm, dry, intact, normal color. Absent: rash Course Vital Signs 03/09/24 03/09/24 03/09/24 04:43 06:35 08:21 Temperature 98.0 F Pulse Rate 86 103 H 78 Respiratory 18 18 14 Rate Blood Pressure 177/78 184/86 184/86 O2 Sat by Pulse 97 98 95 Oximetry 03/09/24 03/09/24 03/09/24 09:00 10:00 10:35 Temperature Pulse Rate 65 67 86 Respiratory 20 20 18 Rate Blood Pressure 169/80 164/76 O2 Sat by Pulse 95 95 Oximetry 03/09/24 03/09/24 03/09/24 11:00 12:00 17:27 Temperature 98.1 F Pulse Rate 60 67 68 Respiratory 16 14 18 Rate Blood Pressure 185/84 149/79 168/82 O2 Sat by Pulse 95 95 97 Oximetry 03/09/24 20:34 Temperature 98.4 F Pulse Rate 73 Respiratory 17 Rate Blood Pressure 181/82 O2 Sat by Pulse 96 Oximetry Chest Pain MDM - MDM Was pt. sent in by a medical professional or institution (, PA, [employer], urgent care, hospital, or detention...) When possible be specific @ -No Did you speak to anyone other than the patient for history (EMS, parent, family, police, friend...)? What history was obtained from this source @ -spoke with EMS for history Did you review nursing and triage notes (agree or disagree)? Why? @ -I reviewed and agree with nursing and triage notes Were old charts reviewed (outside hosp., previous admission, EMS record, old EKG, old radiological studies, urgent care reports/EKG's, detention records)? Report findings @ -No old charts were reviewed Differential Diagnosis (chest pain, altered mental status, abdominal pain women, abdominal pain men, vaginal bleeding, weakness, fever, dyspnea, syncope, headache, dizziness, GI bleed, back pain, seizure, CVA, palpatations, mental health, musculoskeletal)? @ -Differential Chest Pain: Stable Angina, Unstable Angina, STEMI, NSTEMI Aortic Dissection, Pneumothorax, Musculoskeletal, Esophageal Spasm GERD, Cholecystitis, Pancreatitis, Zoster, this is not meant to be an all-inclusive list. EKG interpreted? @ -Yes and demonstrates sinus rhythm with a rate of 82. OH interval 180. QRS 90. QTc of 431. Mild ST depression 2, 3, aVF as well as V3 through V6 X-rays interpreted by me (1pt min.). @ -Yes and demonstrates no acute process CT interpreted by me (1pt min.). @ -Yes and demonstrates no acute process U/S interpreted by me (1pt. min.). @ -None done What testing was considered but not performed or refused? (CT, X-rays, U/S, labs)? Why? @ -None What meds were considered but not given or refused? Why? @ -None Did you discuss the management of the patient with other professionals (professionals i.e. , PA, [employer], lab, RT, psych nurse, psychosocial rehabilitation counselor, pelt salter, teacher, chief environmental commitment officer, pillowcase folder)? Give summary @ -Spoke with Dr. Morris for admission Was smoking cessation discussed for >3mins.? @ -No Was critical care preformed (if so, how long)? @ -No Were there social determinants of health that impacted care today? How? (Homelessness, low income, unemployed, alcoholism, drug addiction, transportation, low edu. Level, literacy, decrease access to med. care, fpc, rehab)? @ -No Was there de-escalation of care discussed even if they declined (Discuss DNR or withdrawal of care, Hospice)? DNR status @ -No What co-morbidities impacted this encounter? (DM, HTN, Smoking, COPD, CAD, Cancer, CVA, ARF, Chemo, Hep., AIDS, mental health diagnosis, sleep apnea, morbid obesity)? @ -Brain aneurysm with coiling Was patient admitted / discharged? Hospital course, mention meds given and route, prescriptions, significant lab abnormalities, going to OR and other pertinent info. @ -Upon arrival patient seen and evaluated in room 15. Thorough history and physical exam was performed. Patient placed on continuous pulse ox and cardiac monitoring. Patient is a normal sinus rhythm at this time however prehospital EKGs do demonstrate rapid A-fib. Patient denies a history of. Laboratory studies were conducted. CT of the head was performed. Chest x-ray was performed. Results are discussed with patient. Did recommend admission for which patient was agreeable. Spoke with Dr. Morris for the admission Undiagnosed new problem with uncertain prognosis? @ -No Drug Therapy requiring intensive monitoring for toxicity (Heparin, Nitro, Insulin, Cardizem)? @ -No Were any procedures done? @ -No Diagnosis/symptom? @ -Acute chest pain Acute, or Chronic, or Acute on Chronic? @ -Acute Uncomplicated (without systemic symptoms) or Complicated (systemic symptoms)? @ -Complicated Side effects of treatment? @ -No Exacerbation, Progression, or Severe Exacerbation? @ -No Poses a threat to life or bodily function? How? (Chest pain, [place], NC, pneumonia, PE, COPD, DKA, ARF, appy, cholecystitis, CVA, Diverticulitis, Homicidal, Suicidal, threat to staff... and all critical care pts) @ -No Disposition Clinical Impression: Hypertension, New onset a-fib, ST segment depression, Facial pain, History of cerebral aneurysm repair Disposition: ADMITTED IP TO THIS [facility] Condition: Stable Is patient prescribed a controlled substance at d/c from ED?: No Time of Disposition: 08:07 Decision to Admit Reason: Admit from EC Decision Date: 03/09/24 Decision Time: 08:07
--- NOTE | 2024-03-09 08:03 | CT ---
EXAMINATION TYPE: CT brain wo con DATE OF EXAM: 03/09/2024 7:50 AM COMPARISON: 11/24/2019 CLINICAL INDICATION: Female, 68 years old with history of headache, htn, hx aneurysm rupture, HTN, he adache, hx aneurysm w rupture, TECHNIQUE: Examination was done in axial plane without intravenous contrast. Coronal and sagittal r econstructions performed. CT DLP: 1168.4 mGycm, Automated exposure control for dose reduction was used. FINDINGS: Embolization coil mass at the anterior midline in the region of the anterior cerebral artery. There i s mild patchy white matter hypodensity in both cerebral hemispheres. Atherosclerotic calcifications i n the carotid siphons. There is no evidence of acute intracranial hemorrhage, acute ischemic changes, mass, mass-effect, or extra-axial fluid collection. There is no effacement of cerebral sulci or basal subarachnoid cister ns. There is no hydrocephalus. There is no midline shift. Dykes-white matter distinction is preserv ed. Paranasal sinuses and mastoid air cells are well pneumatized. Previous resection changes in the right mastoid process. Orbits and globes appear intact. IMPRESSION: 1. Previous embolization coil anterior midline. Mild burden of chronic small vessel ischemic disease. 2. No acute intracranial abnormality seen. [facility], , 03/09/2024 8:01 AM
[2024-03-09] MEDS ORDERED: NALOXONE 0.4 MG/ML 1 ML VIAL IV PRN (08:08)
--- NOTE | 2024-03-09 08:13 | CT ---
EXAMINATION TYPE: CT chest angio for PE DATE OF EXAM: 03/09/2024 7:50 AM COMPARISON: 12/30/2023 CLINICAL INDICATION: Female, 68 years old with history of elevated d-dimer, chest pain, Chest pain / Afib RVR / SoB upon EMS arrival. Converted to sinus and chest pain decreased on ambulance ride to ED. Denies SoB at this time Elevated dimer, TECHNIQUE: Contiguous axial scanning of the chest performed with IV Contrast, patient injected with 8 0 mL of Isovue 370. Coronal and sagittal MIP reconstructions performed. CT DLP: 293.6 mGycm, Automated exposure control for dose reduction was used. FINDINGS: The heart is normal size without pericardial effusion. No flattening of the interventricular septum o r reflux of contrast into the hepatic veins. Aorta normal caliber of bowel with scattered mild to moderate atherosclerotic calcification and plaqu e. Bovine configuration to the aortic arch. There is severe focal stenosis at the upper left subclavi an artery 2.3 cm above its takeoff, axial image 33. Scattered nonenlarged lymph nodes are noted. Nonenlarged and borderline-sized hilar nodes measuring u p to 1.2 cm in the right hilum probably reactive. Reticular subpleural atelectasis along the posterior mid and lower lungs. Mild emphysematous change. Biapical pleural-parenchymal scarring. A 5 mm anterior right midlung pulmonary nodule is unchanged back to 2021. No consolidation or pleural effusion. Satisfactory opacification of the pulmonary arterial system without evidence for pulmonary embolus. Visualized upper abdomen shows moderate atherosclerotic calcifications abdominal aorta and some scatt ered prominent mesenteric lymph nodes which appear to have an present on patient's prior study as wel l. Left kidney surgically absent. Bones: Some degenerative disc disease in the visualized lower cervical spine. IMPRESSION: 1. NO EVIDENCE FOR PULMONARY EMBOLUS. 2. COPD WITH MILD EMPHYSEMA. 3. A FEW BORDERLINE TO MILDLY ENLARGED LYMPH NODES IN THE FAREED MEASURING UP TO 1.2 CM ON THE RIGHT AR E PROBABLY REACTIVE. CONSIDER A 6 MONTH FOLLOW-UP CT CHEST TO ENSURE STABILITY/RESOLUTION. [facility], , 03/09/2024 8:10 AM
[2024-03-09] MEDS: CYANOCOBALAMIN 500 MCG TAB PO SCH (09:44)
[2024-03-09] MEDS: CLOPIDOGREL 75 MG TAB PO SCH (09:44)
[2024-03-09] MEDS: LEVOTHYROXINE 88 MCG TAB PO SCH (09:45)
[2024-03-09] MEDS: LORazepam 0.5 MG TAB PO SCH (09:45)
[2024-03-09] MEDS: METOPROLOL TARTRATE 50 MG TAB PO SCH (09:45)
[2024-03-09] MEDS: MULTIVITAMINS, THERA 1 EACH TAB PO SCH (09:46)
[2024-03-09] MEDS: VITAMIN B COMPLEX PO SCH (09:50)
[2024-03-09] MEDS: FOLIC ACID PO SCH (09:50)
[2024-03-09] MEDS: cycloSPORINE 0.05% OPHTH 0.4 ML DROPERETTE BOTH EYES SCH (09:58)
[2024-03-09] MEDS: VITAMIN E (DL,TOCOPHERYL ACET) 400 UNIT (180 MG) CAP PO SCH (09:59)
[2024-03-09] MEDS ORDERED: HEPARIN SODIUM 1,000 UN/ML (10ML VL) IV PRN (10:09)
--- NOTE | 2024-03-09 10:16 | P.HPIM ---
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 She presented to the emergency department with a chief complaint of chest pain and palpitations. Patient reports yesterday she was experiencing some sinus pressure/congestion and headache. She reports she recently completed antibiotic for sinus infection on Thursday. She reports her blood pressures have been running slightly elevated contributing to her headache and has been monitoring closely at home. She reports awakening to a severe pressure to midsternal chest accompanied by palpitations like her heart was beating very fast. She denies history of this occurring in the past and became very concerned so she called EMS. Per documentation in chart patient was found to be in atrial fibrillation with RVR by EMS. She was given aspirin 324 mg and transferred to our facility. While in route to our facility, patient converted from A-fib RVR back into normal sinus mechanism. Upon arrival to our facility, patient underwent evaluation in the emergency department. Vital signs upon arrival show blood pressure 177/78, heart rate 86, respiratory rate 18, temp 98.0 F, and SpO2 of 97% on room air. EKG completed showing normal sinus rhythm at [address] depression in inferior lead II. Chest x-ray completed negative for acute cardiopulmonary process. CT brain completed showing previous embolization coil anterior midline with mild burden of chronic small vessel ischemic disease but negative for acute intracranial process. Labs completed and reviewed. CBC unremarkable with exception of elevated hematocrit of 46.6. Coagulation profile showing elevated D-dimer of 0.81. BMP showing high anion gap metabolic acidosis with chloride of 110, bicarb of 20, and anion gap of 12 with reports of hyperka lemia with potassium of 5.4 but also reported as a hemolyzed specimen. Blood glucose 139. Liver profile showing hyperbilirubinemia with elevated total bili of 1.6 and AST of 90 otherwise normal findings. Initial troponin 0.018. TSH was 14.200 with free T4 normal at 1.23. Patient was admitted under services with consultation to cardiology. Patient currently reports a soft discomfort/aching pain to midsternal chest along with a headache but denies any further episodes of palpitations. She d enies having any dizziness, lightheadedness, changes in vision or hearing, shortness of breath, cough or congestion, nausea, vomiting, or experiencing any numbness/tingling/weakness/swelling in her extremities. Review of systems: Pertinent positives and negatives as discussed in HPI, a complete review of systems was performed and all other systems are negative. Physical exam: Vital signs reviewed and stable. General: Nontoxic, no distress and appears stated age. Derm: Skin warm and dry, normal coloration for ethnicity. Head: Atraumatic, normocephalic and symmetric. Eyes: EOM's intact, no lid lag, and anicteric sclera Mouth: no lip lesions, mucus membranes moist Cardiovascular: regular rate and rhythm with normal S1S2, systolic murmur, positive posterior tibial pulses bilaterally, and cap refill < 2 seconds. Lungs: Respirations even, regular, and unlabored on room air. Lungs CTA bilaterally, no rhonchi, no rales, no wheezing, and no accessory muscle usage. Abdominal: soft, nontender to palpation, no guarding, no appreciable organomegaly Ext: ROM intact. No gross muscle atrophy, no edema, no contractures Neuro: Speech clear, face symmetrical and CN II-XII grossly intact with no noted focal neuro deficits Psych: Alert and oriented to person, place, time, and situation. Appropriate and pleasant affect. Assessment and Plan of Care: Chest pain and palpitations, rule out acute coronary event Atrial fibrillation with RVR, per EMS report Elevated troponin Hypertension Hyperlipidemia -Cardiology consulted, appreciate recommendations -Telemetry monitoring -Initial troponin 0.018 with repeat troponin of 0.066, continue to trend troponin -Patient started on low intensity heparin infusion. Will monitor PTT closely for goal therapeutic range of 49 to 74 seconds. -Cardiac diet, NPO at midnight -Continue aspirin 81 mg daily, amlodipine 5 mg twice daily, atorvastatin 40 mg nightly, Plavix 75 mg daily, losartan 50 mg daily, and metoprolol 75 mg twice daily. -Lipid profile with a.m. labs. -Echocardiogram to be completed. 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 -Order placed for migraine cocktail consisting of Toradol 15 mg IVP x 1 dose, Benadryl 25 mg IVP x 1 dose, and Compazine 10 mg IVP x 1 dose. History of left nephrectomy -Continue to follow-up outpatient with nephrology. Currently renal function stable. Will continue to monitor closely. Hypothyroidism Continue daily medication regimen with levothyroxine 88 mcg daily.- Anxiety -Continue Ativan 0.5 mg twice daily. Data and imaging reviewed: As stated above in HPI CODE STATUS: Full code DVT prophylaxis: Heparin infusion Anticipated discharge date: Pending clinical course Home Anticipated discharge place: Home Patient was seen independently by Nurse Practitioner. This document was prepared using [employer] dictation software. Please allow for errors in auto electrical technician while rare they do occur. Hubert Garnica NP rendered care for this patient independently, reviewed the findings and plan as documented in the note above and agree with plan. I did not physically speak with or examine the patient on this date. Past Medical History Past Medical History: Hearing Disorder / Deafness, Hyperlipidemia, Hypertension, Respiratory Disorder, Thyroid Disorder, Vascular Disorder Additional Past Medical History / Comment(s): 03/2019 brain aneurysm with r upture-went to [facility] and had brain coil and recently had brain stent, meniere's disese/vertigo and had surgery behind R ear, bilateral [place]/wears aides, L ureteral hernia surgically repaired/then scarred causing blockage and had L nephrectomy, murmur, bronchitis, hypothyroid, sinus problems/allergies and recent sinus infection, bronchitis. History of Any Multi-Drug Resistant Organisms: None Reported Past Surgical History: Hysterectomy, Orthopedic Surgery Additional Past Surgical History / Comment(s): Left nephrectomy, brain aneurysm with coil then stent in brain, R behind ear surgery for Meniere's, colonoscopy. Past Anesthesia/Blood Transfusion Reactions: No Reported Reaction Additional Past Anesthesia/Blood Transfusion Reaction / Comment(s): Pt has received blood with misscarriage and when had hysterectomy without reaction. Past Psychological History: Anxiety, Depression, Panic Disorder Smoking Status: Former smoker - Past Family History Mother Family Medical History: Hypertension Additional Family Medical History / Comment(s): Mother is . Father Family Medical History: Diabetes Mellitus Additional Family Medical History / Comment(s): Father is Medications and Allergies Home Medications Medication Instructions Recorded Confirmed Type Calcium Carbonate/Vitamin D3 2 tab PO DAILY 09/21/14 03/09/24 History [Calcium 600-Vit D3 400 Tablet] cycloSPORINE [Restasis] 1 drop BOTH EYES BID 09/21/14 03/09/24 History Vitamin E (Dl,Tocopheryl Acet) 400 unit PO DAILY 04/18/19 03/09/24 History [Vitamin E (400 Iu = 180 mg)] Clopidogrel Bisulfate [Plavix] 75 mg PO DAILY 11/24/19 03/09/24 History Cyanocobalamin (Vitamin B-12) 1,000 mcg PO DAILY 11/24/19 03/09/24 History [Vitamin B-12] LORazepam [Ativan] 0.5 mg PO BID 11/24/19 03/09/24 History Vitamin B Complex/Folic Acid 1 tab PO DAILY 11/24/19 03/09/24 History [B-Complex Tablet] Levothyroxine Sodium [Synthroid] 88 mcg PO DAILY 03/09/24 03/09/24 History Metoprolol Tartrate [Lopressor] 75 mg PO BID 03/09/24 03/09/24 History Multivit-Min/Iron/Folic/Lutein 1 tab PO DAILY 03/09/24 03/09/24 History [Centrum Silver Women Tablet] Pitavastatin Calcium [Livalo] 1 mg PO HS 03/09/24 03/09/24 History amLODIPine [Norvasc] 5 mg PO BID 03/09/24 03/09/24 History Allergies Allergy/AdvReac Type Severity Reaction Status Date / Time clarithromycin [From Biaxin] Allergy Unknown Verified 03/09/24 08:27 clonidine Allergy Swelling Verified 03/09/24 08:27 Iodinated Contrast Media Allergy Unknown Verified 03/09/24 08:27 [Iodinated Contrast Media - IV Dye] levofloxacin [From Levaquin] Allergy Unknown Verified 03/09/24 08:27 methylprednisolone Allergy Rash/Hives Verified 03/09/24 08:27 [From Medrol] moxifloxacin HCl Allergy Unknown Verified 03/09/24 08:27 [From Avelox] scopolamine Allergy Rash/Hives Verified 03/09/24 08:27 [From Transderm-Scop] Sulfa (Sulfonamide Allergy Unknown Verified 03/09/24 08:27 Antibiotics) ciprofloxacin [From Cipro] AdvReac Rash/Hives Verified 03/09/24 08:27 clindamycin AdvReac HEARTBURN Verified 03/09/24 08:27 doxycycline AdvReac Headache & Verified 03/09/24 08:27 Vomitting nitrofurantoin AdvReac Headache & Verified 03/09/24 08:27 [From Macrobid] Vomitting nitrofurantoin AdvReac Headache & Verified 03/09/24 08:27 macrocrystalline Vomitting [From Macrobid] Physical Exam Vitals: Vital Signs Temp Pulse Resp BP Pulse Ox 03/09/24 06:35 103 H 18 184/86 98 03/09/24 04:43 98.0 F 86 18 177/78 97 Intake and Output 03/08/24 03/09/24 03/09/24 22:59 06:59 14:59 Other: Weight 68.946 kg Results CBC & Chem 7: 03/09/24 04:50 03/09/24 05:07 Labs: Abnormal Lab Results - Last 24 Hours (Table) 03/09/24 03/09/24 03/09/24 Range/Units 04:50 04:50 05:07 Hct 46.6 H (34.0-46.0) % D-Dimer 0.81 H (<0.60) mg/L FEU Potassium 5.4 H (3.5-5.1) mmol/L Chloride 110 H (98-107) mmol/L Carbon Dioxide 20 L (22-30) mmol/L Glucose 139 H (74-99) mg/dL Total Bilirubin 1.6 H (0.2-1.3) mg/dL AST 90 H (14-36) U/L Total Protein 8.9 H (6.3-8.2) g/dL Albumin 5.2 H (3.5-5.0) g/dL
[2024-03-09] MEDS: KETOROLAC 15 MG/ML 1 ML VIAL IVP STA (10:38)
[2024-03-09] MEDS: PROCHLORPERAZINE INJ 10 MG/2 ML VIAL IVP STA (10:41)
[2024-03-09] MEDS: HEPARIN SODIUM 1,000 UN/ML (10ML VL) IV ONE (10:41)
[2024-03-09] MEDS: HEPARIN SOD,PORK IN 0.45% NACL 25,000 UNIT in 0.45% NACL 1 250ML.BAG IV SCH (10:42)
--- NOTE | 2024-03-09 11:44 | P.GSCN ---
History of Present Illness Consult date: 03/09/24 Reason for Consult: Severe stenosis of left subclavian artery Requesting physician: Hubert Garnica History of present illness: This a pleasant 68-year-old female who had presented to the emergency department yesterday with complaints of acute onset chest pain lasting about an hour. She states that she had chest pain without any history of coronary artery disease. States that she does have quite a bit of anxiety. She has had a recent sinus infection currently on Keflex with a return headache. She also states that her blood pressure has been elevated. She had a CTA of the chest as part of her workup for chest pain that reported left subclavian artery stenosis. Vascular surgery was consulted for the above. She has a past medical history including brain aneurysm status post coiling, hypertension, hyperlipidemia, hypothyroidism, and known asymptomatic left subclavian artery stenosis. She was admitted for chest pain with new onset atrial fibrillation. She denies any pain, weakness, or numbness tingling in her left upper extremity. She follows with Dr. Campos was last seen in the office in January of this year and underwent carotid duplex that showed less than 50% stenosis bilateral ICA and asymptomatic left subclavian artery stenosis. Patient currently denies any chest pain states she does have a headache feels that her sinus infection is returning. Review of Systems A 14 point review systems was completed all pertinent positives and negatives as stated in the HPI. Past Medical History Past Medical History: Hearing Disorder / Deafness, Hyperlipidemia, Hypertension, Respiratory Disorder, Thyroid Disorder, Vascular Disorder Additional Past Medical History / Comment(s): 03/2019 brain aneurysm with r upture-went to [facility] and had brain coil and recently had brain stent, meniere's disese/vertigo and had surgery behind R ear, bilateral [place]/wears aides, L ureteral hernia surgically repaired/then scarred causing blockage and had L nephrectomy, murmur, bronchitis, hypothyroid, sinus problems/allergies and recent sinus infection, bronchitis. History of Any Multi-Drug Resistant Organisms: None Reported Past Surgical History: Hysterectomy, Orthopedic Surgery Additional Past Surgical History / Comment(s): Left nephrectomy, brain aneurysm with coil then stent in brain, R behind ear surgery for Meniere's, colonoscopy. Past Anesthesia/Blood Transfusion Reactions: No Reported Reaction Additional Past Anesthesia/Blood Transfusion Reaction / Comm: Pt has received blood with misscarriage and when had hysterectomy without reaction. Past Psychological History: Anxiety, Depression, Panic Disorder Smoking Status: Former smoker - Past Family History Mother Family Medical History: Hypertension Additional Family Medical History / Comment(s): Mother is . Father Family Medical History: Diabetes Mellitus Additional Family Medical History / Comment(s): Father is Medications and Allergies Home Medications Medication Instructions Recorded Confirmed Type Calcium Carbonate/Vitamin D3 2 tab PO DAILY 09/21/14 03/09/24 History [Calcium 600-Vit D3 400 Tablet] cycloSPORINE [Restasis] 1 drop BOTH EYES BID 09/21/14 03/09/24 History Vitamin E (Dl,Tocopheryl Acet) 400 unit PO DAILY 04/18/19 03/09/24 History [Vitamin E (400 Iu = 180 mg)] Clopidogrel Bisulfate [Plavix] 75 mg PO DAILY 11/24/19 03/09/24 History Cyanocobalamin (Vitamin B-12) 1,000 mcg PO DAILY 11/24/19 03/09/24 History [Vitamin B-12] LORazepam [Ativan] 0.5 mg PO BID 11/24/19 03/09/24 History Vitamin B Complex/Folic Acid 1 tab PO DAILY 11/24/19 03/09/24 History [B-Complex Tablet] Levothyroxine Sodium [Synthroid] 88 mcg PO DAILY 03/09/24 03/09/24 History Metoprolol Tartrate [Lopressor] 75 mg PO BID 03/09/24 03/09/24 History Multivit-Min/Iron/Folic/Lutein 1 tab PO DAILY 03/09/24 03/09/24 History [Centrum Silver Women Tablet] Pitavastatin Calcium [Livalo] 1 mg PO HS 03/09/24 03/09/24 History amLODIPine [Norvasc] 5 mg PO BID 03/09/24 03/09/24 History Allergies Allergy/AdvReac Type Severity Reaction Status Date / Time clarithromycin [From Biaxin] Allergy Unknown Verified 03/09/24 08:27 clonidine Allergy Swelling Verified 03/09/24 08:27 Iodinated Contrast Media Allergy Unknown Verified 03/09/24 08:27 [Iodinated Contrast Media - IV Dye] levofloxacin [From Levaquin] Allergy Unknown Verified 03/09/24 08:27 methylprednisolone Allergy Rash/Hives Verified 03/09/24 08:27 [From Medrol] moxifloxacin HCl Allergy Unknown Verified 03/09/24 08:27 [From Avelox] scopolamine Allergy Rash/Hives Verified 03/09/24 08:27 [From Transderm-Scop] Sulfa (Sulfonamide Allergy Unknown Verified 03/09/24 08:27 Antibiotics) ciprofloxacin [From Cipro] AdvReac Rash/Hives Verified 03/09/24 08:27 clindamycin AdvReac HEARTBURN Verified 03/09/24 08:27 doxycycline AdvReac Headache & Verified 03/09/24 08:27 Vomitting nitrofurantoin AdvReac Headache & Verified 03/09/24 08:27 [From Macrobid] Vomitting nitrofurantoin AdvReac Headache & Verified 03/09/24 08:27 macrocrystalline Vomitting [From Macrobid] Surgical - Exam Vital Signs Temp Pulse Resp BP Pulse Ox 98.0 F 86 18 177/78 97 03/09/24 04:43 03/09/24 04:43 03/09/24 04:43 03/09/24 04:43 03/09/24 04:43 General appearance: The patient is alert, oriented, appears in no acute dis tress. HET: Head is normocephalic and atraumatic. Pupils are equal and reactive. Neck: Supple. Heart: Regular. Lungs: Equal expansion, normal respiratory effort. Abdomen: Soft, nontender, nondistended. Extremities: Normal skin color and turgor. Bilateral palpable radial pulses, right greater than left. Full range of motion and sensorimotor intact. Neurological: No focal deficits. Alert and oriented x 3. Results - Labs 03/09/24 04:50 03/09/24 05:07 Abnormal Lab Results - Last 24 Hours (Table) 03/09/24 03/09/24 03/09/24 Range/Units 04:50 04:50 05:07 Hct 46.6 H (34.0-46.0) % D-Dimer 0.81 H (<0.60) mg/L FEU Potassium 5.4 H (3.5-5.1) mmol/L Chloride 110 H (98-107) mmol/L Carbon Dioxide 20 L (22-30) mmol/L Glucose 139 H (74-99) mg/dL Total Bilirubin 1.6 H (0.2-1.3) mg/dL AST 90 H (14-36) U/L Total Protein 8.9 H (6.3-8.2) g/dL Albumin 5.2 H (3.5-5.0) g/dL Diabetes panel 03/09/24 Range/Units 05:07 Sodium 142 (137-145) mmol/L Potassium 5.4 H (3.5-5.1) mmol/L Chloride 110 H (98-107) mmol/L Carbon Dioxide 20 L (22-30) mmol/L BUN 15 (7-17) mg/dL Creatinine 0.80 (0.52-1.04) mg/dL Glucose 139 H (74-99) mg/dL Calcium 9.0 (8.4-10.2) mg/dL AST 90 H (14-36) U/L ALT 30 (4-34) U/L Alkaline Phosphatase 103 (38-126) U/L Total Protein 8.9 H (6.3-8.2) g/dL Albumin 5.2 H (3.5-5.0) g/dL Calcium panel 03/09/24 Range/Units 05:07 Calcium 9.0 (8.4-10.2) mg/dL Albumin 5.2 H (3.5-5.0) g/dL Pituitary panel 03/09/24 Range/Units 05:07 Sodium 142 (137-145) mmol/L Potassium 5.4 H (3.5-5.1) mmol/L Chloride 110 H (98-107) mmol/L Carbon Dioxide 20 L (22-30) mmol/L BUN 15 (7-17) mg/dL Creatinine 0.80 (0.52-1.04) mg/dL Glucose 139 H (74-99) mg/dL Calcium 9.0 (8.4-10.2) mg/dL Adrenal panel 03/09/24 Range/Units 05:07 Sodium 142 (137-145) mmol/L Potassium 5.4 H (3.5-5.1) mmol/L Chloride 110 H (98-107) mmol/L Carbon Dioxide 20 L (22-30) mmol/L BUN 15 (7-17) mg/dL Creatinine 0.80 (0.52-1.04) mg/dL Glucose 139 H (74-99) mg/dL Calcium 9.0 (8.4-10.2) mg/dL Total Bilirubin 1.6 H (0.2-1.3) mg/dL AST 90 H (14-36) U/L ALT 30 (4-34) U/L Alkaline Phosphatase 103 (38-126) U/L Total Protein 8.9 H (6.3-8.2) g/dL Albumin 5.2 H (3.5-5.0) g/dL - Imaging Comments: Chest CT angiogram reports no evidence for pulmonary embolus. COPD with mild emphysema. Few borderline to mildly enlarged lymph nodes in the hilar measuring up to 1.2 cm on the right are probably reactive consider a 6-month follow-up CT chest to ensure stability/resolution. Also noted severe focal stenosis at the upper left subclavian artery 2.3 cm above its takeoff Brain CT reports previous embolization coil anterior midline. Mild burden of chronic small vessel ischemic disease. No acute intracranial abnormality seen. Assessment and Plan Assessment: 1. Known asymptomatic chronic left subclavian artery stenosis 2. Chest pain 3. Reported new onset atrial fibrillation 4. Headache 5. Hypertension 6. History of brain aneurysm status post coil Plan: Patient is known to vascular surgery and follows with Dr. Campos with most recent appointment in January of this year with yearly carotid Dopplers. Last US with less than 50% ICA stenosis bilaterally. Patient remains asymptomatic with her left subclavian artery stenosis. No indication for any vascular surgical intervention. Recommend outpatient follow-up as previously scheduled. Rest of medical management per primary medical team. Thank you for this consultation, we will sign off at this time. The impression and plan of care has been dictated as directed. Dr. Campos I performed a history and examination of this patient, discussed the same with the dictator. I agree with the dictator's note ,documented as a scribe. Any additional findings or plans will be noted.
[2024-03-09] MEDS: LOSARTAN 50 MG TAB PO SCH (12:49)
--- NOTE | 2024-03-09 13:58 | P.CRDCN ---
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 We have been asked to evaluate the patient for acute chest pain and new onset of A- fib with RVR. Patient states that she woke up and had to chest pain and also complained of headache. She states her blood pressure was high at home. She denies any previous history of coronary artery disease. She states she did have about of chest pain many years ago and was determined to be related to anxiety. She presented with a blood pressure of 177/78. Now, blood pressure 149/69, heart rate in the 60s, pulse ox 95% on room air. Patient is been started on heparin drip. She has also been seen by vascular surgery regarding left subclavian artery stenosis. Discussed option of possible cardiac catheterization with the patient. Plan to obtain more information and will reassess tomorrow. -EKG: Sinus rhythm with /nonspecific ST changes, telemetry strips from EMS reviewed revealing atrial fibrillation 135 bpm -Chest x-ray: No acute process -CTA chest: No evidence of pulmonary embolus. COPD with mild emphysema. Lymph nodes in the jessica probably reactive. -CT brain previous embolization coil anterior midline. Mild burden of chronic small vessel ischemic disease. No acute process -Laboratory studies: WBC 6, hemoglobin 16, D-dimer 0.81, sodium 142, potassium 5.4, creatinine 0.8. Troponin 0.018 and 0.066, TSH 14.2. -Home cardiac medications: Amlodipine 5 mg twice daily, Plavix 75 mg daily, Lopressor 75 mg twice daily, Livalo 1 mg at bedtime, also on levothyroxine 88 mcg daily. -Echocardiogram performed 10/26/2020 revealed EF 55 to 60%, mild MR, mild TR. Review Of Systems: At the time of my exam: CONSTITUTIONAL: Denies fever or chills. HEENT: Denies blurred vision, vision changes, or eye pain. Denies hemoptysis CARDIOVASCULAR: Denies chest pain. Denies orthopnea. Denies PND. Denies palpitations RESPIRATORY: Denies shortness of breath. GASTROINTESTINAL: Denies abdominal pain. Denies nausea or vomiting. HEMATOLOGIC: Denies bleeding disorders. GENITOURINARY: Denies any blood in urine. SKIN: Denies puritis. Denies rash. Physical examination: Gen: This is a 68-year-old female in no acute distress VS: reviewed HEENT: Head is atraumatic, normocephalic. Pupils equal, round. Sclerae is anicteric. NECK: Supple. No JVD. LUNGS: Clear to auscultation. No wheezes or rhonchi. No intercostal retractions . HEART: Regular rate and rhythm. No murmur. ABDOMEN: Soft No tenderness. EXTREMITIES: No pedal edema. No calf tenderness. NEUROLOGICAL: Patient is awake, alert and oriented x3. Assessment: NSTEMI New onset paroxysmal atrial fibrillation Uncontrolled hypertension Headache History of brain aneurysm status post coiling Hyperlipidemia Hypothyroidism Asymptomatic left subclavian artery stenosis Plan: Resume patient's home cardiac medications Continue heparin drip Increase atorvastatin to 40 mg N.p.o. after midnight for possible cardiac catheterization tomorrow Obtain 2-D echocardiogram and Doppler study to assess cardiac structure and function Further recommendations to follow based upon clinical course Thank you kindly for this consultation. Nurse practitioner note has been reviewed, I agree with documented findings and plan of care. Patient was seen and examined. Past Medical History Past Medical History: Hearing Disorder / Deafness, Hyperlipidemia, Hypertension, Respiratory Disorder, Thyroid Disorder, Vascular Disorder Additional Past Medical History / Comment(s): 03/2019 brain aneurysm with rupture-went to [facility] and had brain coil and recently had brain stent, meniere's disese/vertigo and had surgery behind R ear, bilateral [facility] [place]/wears aides, L ureteral hernia surgically repaired/then scarred causing blockage and had L nephrectomy, murmur, bronchitis, hypothyroid, sinus problems/allergies and recent sinus infection, bronchitis. History of Any Multi-Drug Resistant Organisms: None Reported Past Surgical History: Hysterectomy, Orthopedic Surgery Additional Past Surgical History / Comment(s): Left nephrectomy, brain aneurysm with coil then stent in brain, R behind ear surgery for Meniere's, colonoscopy. Past Anesthesia/Blood Transfusion Reactions: No Reported Reaction Additional Past Anesthesia/Blood Transfusion Reaction / Comment(s): Pt has received blood with misscarriage and when had hysterectomy without reaction. Past Psychological History: Anxiety, Depression, Panic Disorder Smoking Status: Former smoker - Past Family History Mother Family Medical History: Hypertension Additional Family Medical History / Comment(s): Mother is . Father Family Medical History: Diabetes Mellitus Additional Family Medical History / Comment(s): Father is Medications and Allergies Home Medications Medication Instructions Recorded Confirmed Type Calcium Carbonate/Vitamin D3 2 tab PO DAILY 09/21/14 03/09/24 History [Calcium 600-Vit D3 400 Tablet] cycloSPORINE [Restasis] 1 drop BOTH EYES BID 09/21/14 03/09/24 History Vitamin E (Dl,Tocopheryl Acet) 400 unit PO DAILY 04/18/19 03/09/24 History [Vitamin E (400 Iu = 180 mg)] Clopidogrel Bisulfate [Plavix] 75 mg PO DAILY 11/24/19 03/09/24 History Cyanocobalamin (Vitamin B-12) 1,000 mcg PO DAILY 11/24/19 03/09/24 History [Vitamin B-12] LORazepam [Ativan] 0.5 mg PO BID 11/24/19 03/09/24 History Vitamin B Complex/Folic Acid 1 tab PO DAILY 11/24/19 03/09/24 History [B-Complex Tablet] Levothyroxine Sodium [Synthroid] 88 mcg PO DAILY 03/09/24 03/09/24 History Metoprolol Tartrate [Lopressor] 75 mg PO BID 03/09/24 03/09/24 History Multivit-Min/Iron/Folic/Lutein 1 tab PO DAILY 03/09/24 03/09/24 History [Centrum Silver Women Tablet] Pitavastatin Calcium [Livalo] 1 mg PO HS 03/09/24 03/09/24 History amLODIPine [Norvasc] 5 mg PO BID 03/09/24 03/09/24 History Allergies Allergy/AdvReac Type Severity Reaction Status Date / Time clarithromycin [From Biaxin] Allergy Unknown Verified 03/09/24 08:27 clonidine Allergy Swelling Verified 03/09/24 08:27 Iodinated Contrast Media Allergy Unknown Verified 03/09/24 08:27 [Iodinated Contrast Media - IV Dye] levofloxacin [From Levaquin] Allergy Unknown Verified 03/09/24 08:27 methylprednisolone Allergy Rash/Hives Verified 03/09/24 08:27 [From Medrol] moxifloxacin HCl Allergy Unknown Verified 03/09/24 08:27 [From Avelox] scopolamine Allergy Rash/Hives Verified 03/09/24 08:27 [From Transderm-Scop] Sulfa (Sulfonamide Allergy Unknown Verified 03/09/24 08:27 Antibiotics) ciprofloxacin [From Cipro] AdvReac Rash/Hives Verified 03/09/24 08:27 clindamycin AdvReac HEARTBURN Verified 03/09/24 08:27 doxycycline AdvReac Headache & Verified 03/09/24 08:27 Vomitting nitrofurantoin AdvReac Headache & Verified 03/09/24 08:27 [From Macrobid] Vomitting nitrofurantoin AdvReac Headache & Verified 03/09/24 08:27 macrocrystalline Vomitting [From Macrobid] Physical Exam Vitals: Vital Signs Temp Pulse Resp BP Pulse Ox 03/09/24 10:35 86 18 03/09/24 10:00 67 20 164/76 95 03/09/24 09:00 65 20 169/80 95 03/09/24 08:21 78 14 184/86 95 03/09/24 06:35 103 H 18 184/86 98 03/09/24 04:43 98.0 F 86 18 177/78 97 Intake and Output 03/08/24 03/09/24 03/09/24 22:59 06:59 14:59 Other: Weight 68.946 kg Results 03/09/24 04:50 03/09/24 05:07 Cardiac Enzymes 03/09/24 03/09/24 03/09/24 Range/Units 04:50 05:07 08:25 AST 90 H (14-36) U/L Troponin I 0.018 0.066 H* (0.000-0.034) ng/mL Coagulation 03/09/24 Range/Units 04:50 PT 10.1 (10.0-12.5) sec APTT 25.6 (22.0-30.0) sec CBC 03/09/24 Range/Units 04:50 WBC 6.0 (3.8-10.6) k/uL RBC 5.39 (3.80-5.40) m/uL Hgb 16.0 (11.4-16.0) gm/dL Hct 46.6 H (34.0-46.0) % Plt Count 242 (150-450) k/uL Comprehensive Metabolic Panel 03/09/24 Range/Units 05:07 Sodium 142 (137-145) mmol/L Potassium 5.4 H (3.5-5.1) mmol/L Chloride 110 H (98-107) mmol/L Carbon Dioxide 20 L (22-30) mmol/L BUN 15 (7-17) mg/dL Creatinine 0.80 (0.52-1.04) mg/dL Glucose 139 H (74-99) mg/dL Calcium 9.0 (8.4-10.2) mg/dL AST 90 H (14-36) U/L ALT 30 (4-34) U/L Alkaline Phosphatase 103 (38-126) U/L Total Protein 8.9 H (6.3-8.2) g/dL Albumin 5.2 H (3.5-5.0) g/dL Current Medications Generic Name Dose Route Start Last Admin Trade Name Freq PRN Reason Stop Dose Admin Amlodipine Besylate 5 mg 03/09/24 21:00 Amlodipine 5 Mg Tab PO BID [facility] Aspirin 81 mg 03/10/24 09:00 Aspirin 81 Mg PO DAILY [facility] Atorvastatin Calcium 10 mg 03/09/24 21:00 Atorvastatin 10 Mg Tab PO HS [facility] Clopidogrel Bisulfate 75 mg 03/09/24 09:15 03/09/24 09:44 Clopidogrel 75 Mg Tab PO 75 mg DAILY ALISIA Administration Cyanocobalamin 1,000 mcg 03/09/24 09:15 03/09/24 09:44 Cyanocobalamin 500 Mcg Tab PO 1,000 mcg DAILY ALISIA Administration Cyclosporine 1 drops 03/09/24 09:15 03/09/24 09:58 Cyclosporine 0.05% Ophth 0.4 Ml Droperette BOTH EYES 1 drops BID ALISIA Administration Heparin Sodium (Porcine) 0 unit 03/09/24 10:09 Heparin Sodium 1,000 Un/Ml (10ml Vl) IV PER PROTOCOL PRN Low PTT Protocol Heparin Sodium/Sodium Chloride 250 mls @ 8.274 mls/hr 03/09/24 10:15 03/09/24 10:42 25,000 unit/ Sodium Chloride IV 12 units/kg/hr .Q24H ALISIA 8.274 mls/hr Administration Protocol 12 UNITS/KG/HR Levothyroxine Sodium 88 mcg 03/09/24 09:15 03/09/24 09:45 Levothyroxine 88 Mcg Tab PO 88 mcg DAILY@0630 ALISIA Administration Lorazepam 0.5 mg 03/09/24 09:15 03/09/24 09:45 Lorazepam 0.5 Mg Tab PO 0.5 mg BID ALISIA Administration Metoprolol Tartrate 75 mg 03/09/24 09:15 03/09/24 09:45 Metoprolol Tartrate 50 Mg Tab PO 75 mg BID ALISIA Administration Multivitamins 1 each 03/09/24 09:15 03/09/24 09:46 Multivitamins, Thera 1 Each Tab PO 1 each DAILY ALISIA Administration Naloxone HCl 0.2 mg 03/09/24 08:08 Naloxone 0.4 Mg/Ml 1 Ml Vial IV Q2M PRN Opioid Reversal Vitamin E 400 unit 03/09/24 09:15 03/09/24 09:59 Vitamin E (Dl,Tocopheryl Acet) 400 Unit (180 Mg) Cap PO 400 unit DAILY ALISIA Administration Intake and Output 03/08/24 03/09/24 03/09/24 22:59 06:59 14:59 Other: Weight 68.946 kg 03/09/24 04:50 03/09/24 05:07
[2024-03-09 15:33] LABS: T4, Free (Free Thyroxine) 1.23 ng/dL (0.78-2.19)
[2024-03-09] MEDS: ATORVASTATIN 40 MG TAB PO SCH (20:22)
[2024-03-09] MEDS: amLODIPine 5 MG TAB PO SCH (20:22)
[2024-03-09] MEDS ORDERED: amLODIPine 10 MG TAB PO SCH (21:00)
[2024-03-09] MEDS ORDERED: ATORVASTATIN 10 MG TAB PO SCH (21:00)
[2024-03-10] MEDS: ASPIRIN 81 MG PO SCH (06:29)
[2024-03-10] MEDS ORDERED: HEPARIN SODIUM,PORCINE (1 ML) 2,500 UNIT in SODIUM CHLORIDE 0.9% 250 ML IRRIGATION PRN (07:00)
[2024-03-10] MEDS ORDERED: HEPARIN SODIUM,PORCINE 10,000 UNIT in SODIUM CHLORIDE 0.9% 1,000 ML IRRIGATION PRN (07:00)
[2024-03-10 07:25] LABS: Basophils # (A) 0.1 k/uL (0-0.2); Basophils % (A) 1 %; Eosinophils # (A) 0.2 k/uL (0-0.7); Eosinophils % (A) 2 %; HCT 44.7 % (34.0-46.0); HGB 15.4 gm/dL (11.4-16.0); Lymphocytes % (A) 31 %; MCH 30.1 pg (25.0-35.0); MCHC 34.4 g/dL (31.0-37.0); MCV 87.4 fL (80.0-100.0); Mean Platelet Volume 7.2; Monocytes # (A) 0.5 k/uL (0-1.0); Monocytes % (A) 7 %; Neutrophils # (A) 3.5 k/uL (1.3-7.7); Neutrophils % (A) 55 %; Platelet Count 300 k/uL (150-450); RBC 5.11 m/uL (3.80-5.40); RDW 12.6 % (11.5-15.5); WBC 6.3 k/uL (3.8-10.6)
[2024-03-10 07:31] LABS: Prothrombin Time 11.1 sec (10.0-12.5)
[2024-03-10 08:22] LABS: African American GFR (CKD) 69 (>60 ml/min/1.73 sqM); Anion Gap 12 mmol/L; Blood Urea Nitrogen 18 mg/dL (7-17); Calcium 9.1 mg/dL (8.4-10.2); Carbon Dioxide 23 mmol/L (22-30); Chloride 107 mmol/L (98-107); Glucose 107 mg/dL (74-99); Magnesium 2.1 mg/dL (1.6-2.3); Non-African American GFR(CKD) 60 (>60 ml/min/1.73 sqM); Potassium 3.5 mmol/L (3.5-5.1); Sodium 142 mmol/L (137-145)
[2024-03-10] MEDS ORDERED: ALPRAZolam 0.5 MG TAB PO PRN (08:56)
[2024-03-10] MEDS ORDERED: NITROGLYCERIN SL TABS 0.4 MG TAB SUBLINGUAL PRN (08:56)
[2024-03-10] MEDS: ATORVASTATIN 80 MG TAB PO STA (09:12)
[2024-03-10] MEDS: ASPIRIN 81 MG PO STA (09:12)
[2024-03-10] MEDS: SODIUM CHLORIDE 0.9% 1,000 ML in EMPTY BAG 1 BAG IV SCH (09:15)
[2024-03-10] MEDS: diphenhydrAMINE 50 MG/ML 1 ML VIAL IVP STA (09:59)
[2024-03-10] MEDS: MIDAZOLAM 2 MG/2 ML VIAL IVP ONE (10:26)
[2024-03-10] MEDS: methylPREDNISolone SOD SUCCI 125 MG/2 ML VIAL IVP ONE (10:26)
[2024-03-10] MEDS: fentaNYL (PF) 50 MCG/ML 2 ML AMP IVP ONE (10:26)
[2024-03-10] MEDS: LIDOCAINE 1% INJ 10MG/ML (20 ML MDV) SQ ONE (10:28)
[2024-03-10] MEDS: VERAPAMIL SYRINGE (5 MG/10 ML) INTRAARTER ONE (10:30)
[2024-03-10] MEDS: HEPARIN SODIUM,PORCINE (1 ML) 2,500 UNIT in SODIUM CHLORIDE 0.9% 250 ML IRRIGATION ONE (10:37)
[2024-03-10] MEDS: HEPARIN SODIUM,PORCINE 10,000 UNIT in SODIUM CHLORIDE 0.9% 1,000 ML IRRIGATION ONE (10:37)
[2024-03-10] MEDS: IV FLUID CONTINUATION 1,000 ML IV ONE (10:37)
[2024-03-10] MEDS: HEPARIN SODIUM 1,000 UN/ML (10ML VL) IVP ONE (11:05)
[2024-03-10] MEDS: IOPAMIDOL-370 100ML BTL INJ ONE (11:15)
[2024-03-10] MEDS ORDERED: RX INFO: IV CONTRAST WAS GIVEN 1 EACH MISC MISCELLANE PRN (11:21)
--- NOTE | 2024-03-10 12:27 | P.PN ---
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 We have been asked to evaluate the patient for acute chest pain and new onset of A- fib with RVR. Patient states that she woke up and had to chest pain and also complained of headache. She states her blood pressure was high at home. She denies any previous history of coronary artery disease. She states she did have about of chest pain many years ago and was determined to be related to anxiety. She presented with a blood pressure of 177/78. Now, blood pressure 149/69, heart rate in the 60s, pulse ox 95% on room air. Patient is been started on heparin drip. She has also been seen by vascular surgery regarding left subclavian artery stenosis. Discussed option of possible cardiac catheterization with the patient. Plan to obtain more information and will reassess tomorrow. -EKG: Sinus rhythm with /nonspecific ST changes, telemetry strips from EMS reviewed revealing atrial fibrillation 135 bpm -Chest x-ray: No acute process -CTA chest: No evidence of pulmonary embolus. COPD with mild emphysema. Lymph nodes in the jessica probably reactive. -CT brain previous embolization coil anterior midline. Mild burden of chronic small vessel ischemic disease. No acute process -Laboratory studies: WBC 6, hemoglobin 16, D-dimer 0.81, sodium 142, potassium 5.4, creatinine 0.8. Troponin 0.018 and 0.066, TSH 14.2. -Home cardiac medications: Amlodipine 5 mg twice daily, Plavix 75 mg daily, Lopressor 75 mg twice daily, Livalo 1 mg at bedtime, also on levothyroxine 88 mcg daily. -Echocardiogram performed 10/26/2020 revealed EF 55 to 60%, mild MR, mild TR. 03/10/24 Patient seen and examined on the Cardiac Stepdown Unit. Patient denies chest pain, no shortness of breath. Patient has been maintained on Heparin IV. She is scheduled for [facility] today with Dr. Daysi Farr. Echocardiogram has been obtained and report is pending. Physical examination: Gen: This is a 68-year-old female in no acute distress VS: reviewed HEENT: Head is atraumatic, normocephalic. Pupils equal, round. Sclerae is anicteric. NECK: Supple. No JVD. LUNGS: Clear to auscultation. No wheezes or rhonchi. No intercostal retractions. HEART: Regular rate and rhythm. No murmur. ABDOMEN: Soft No tenderness. EXTREMITIES: No pedal edema. No calf tenderness. NEUROLOGICAL: Patient is awake, alert and oriented x3. Assessment: NSTEMI New onset paroxysmal atrial fibrillation Uncontrolled hypertension Headache History of brain aneurysm status post coiling Hyperlipidemia Hypothyroidism Asymptomatic left subclavian artery stenosis Plan: Resume current cardiac medications: Norvasc 5 mg twice daily, aspirin 81 mg daily, Lipitor 40 mg at bedtime, Plavix 75 mg daily, losartan 50 mg daily, Lopressor 75 mg twice daily Discontinue heparin drip Patient will be scheduled for cardiac catheterization this morning Obtain 2-D echocardiogram and Doppler report Further recommendations to follow based upon clinical course Nurse practitioner note has been reviewed, I agree with documented findings and plan of care. Patient was seen and examined. Objective - Vital Signs Vital signs: Vital Signs Temp 98.0 F 03/10/24 08:15 Pulse 65 03/10/24 08:15 Resp 17 03/10/24 08:15 BP 171/77 03/10/24 08:15 Pulse Ox 98 03/10/24 08:15 FiO2 Intake & Output 03/09/24 03/10/24 03/10/24 18:59 06:59 18:59 Intake Total 54.884 Balance 54.884 Weight 67 kg Intake: Intake, IV Titration 54.884 Amount Heparin Sod,Pork in 0.45% 54.884 NaCl 25,000 unit In 0.45 % NaCl 1 250ml.bag @ 12 UNITS/KG/HR 8.274 mls/hr IV .Q24H ALISIA Rx#: [id number] Other: Voiding Method Toilet # Voids 1 - Labs CBC & Chem 7: 03/10/24 06:35 03/10/24 06:35 Labs: Abnormal Lab Results - Last 24 Hours (Table) 03/09/24 03/09/24 03/09/24 Range/Units 05:07 08:25 11:56 APTT (22.0-30.0) sec BUN (7-17) mg/dL Glucose (74-99) mg/dL Troponin I 0.066 H* 0.055 H* (0.000-0.034) ng/mL TSH 14.200 H (0.465-4.680) mIU/L 03/09/24 03/10/24 03/10/24 Range/Units 16:21 00:23 06:35 APTT 163.5 H* 71.3 H (22.0-30.0) sec BUN 18 H (7-17) mg/dL Glucose 107 H (74-99) mg/dL Troponin I (0.000-0.034) ng/mL TSH (0.465-4.680) mIU/L
--- NOTE | 2024-03-10 12:35 | CA ---
Transthoracic Echo Report Name: Ana Talavera Age: 68 Gender: F : 1955 Exam Date: 03/10/2024 08:14 Exam Location: [facility] Ht (in): 66 Wt (lb): 152 Ordering Physician: Love Abarca Attending/Referring Phys: [id number], Tevin [employer] Representatives Katelyn Bella RDCS Procedure CPT: Indications: LVF Cardiac Hx: Technical Quality: Good Contrast 1: Total Dose (mL): Contrast 2: Total Dose (mL): MEASUREMENTS (Male / Female) Normal Values 2D ECHO LV Diastolic Diameter PLAX 4.2 cm 4.2 - 5.9 / 3.9 - 5.3 cm LV Systolic Diameter PLAX 2.9 cm IVS Diastolic Thickness 1.1 cm 0.6 - 1.0 / 0.6 - 0.9 cm LVPW Diastolic Thickness 1.1 cm 0.6 - 1.0 / 0.6 - 0.9 cm LV Relative Wall Thickness 0.5 RV Internal Dim ED PLAX 3.2 cm LA Systolic Diameter LX 3.1 cm 3.0 - 4.0 / 2.7 - 3.8 cm LV Diastolic Volume MOD 4C 115.5 cm??? LV Systolic Volume MOD 4C 49.8 cm??? LV Ejection Fraction MOD 4C 56.8 % LV Cardiac Index MOD 4C 2041.6 cm???/min???m??? LV Diastolic Length 4C 8.1 cm LV Systolic Length 4C 6.9 cm LV Diastolic Volume MOD 2C 65.3 cm??? LV Systolic Volume MOD 2C 22.7 cm??? LV Ejection Fraction MOD 2C 65.2 % LV Cardiac Index MOD 2C 1323.5 cm???/min???m??? LV Diastolic Length 2C 7.4 cm LV Systolic Length 2C 6.4 cm LA Volume 51.6 cm??? 18 - 58 / 22 - 52 cm??? LA Volume Index 28.6 cm???/m??? 16 - 28 cm???/m??? M-MODE Aortic Root Diameter MM 3.0 cm DOPPLER AV Peak Velocity 134.4 cm/s AV Peak Gradient 7.2 mmHg MV Area PHT 2.7 cm??? Mitral E Point Velocity 87.8 cm/s Mitral A Point Velocity 100.9 cm/s Mitral E to A Ratio 0.9 MV Deceleration Time 281.3 ms TR Peak Velocity 221.6 cm/s TR Peak Gradient 19.6 mmHg Right Ventricular Systolic Press 23.9 mmHg FINDINGS Left Ventricle Left ventricular ejection fraction is estimated at 55-60 %. Left ventricular cavity size normal. Mildly increased septal wall thickness. Mildly increased posterior wall thickness. Normal left ventricular wall motion. Right Ventricle Normal right ventricular size. Right ventricular systolic pressure within normal limits. Right Atrium Normal right atrial size. No right atrial thrombus or mass seen. Left Atrium Normal left atrial size. No left atrial thrombus or mass present. Mitral Valve Structurally normal mitral valve. No mitral stenosis, regurgitation or prolapse. Aortic Valve Trileaflet aortic valve. No aortic valve stenosis or regurgitation. Thickened aortic valve without stenosis. Tricuspid Valve Structurally normal tricuspid valve. Mild tricuspid regurgitation. Pulmonic Valve Structurally normal pulmonic valve. No pulmonic regurgitation. Pericardium No pericardial or pleural effusion. Aorta Normal size aortic root and proximal ascending aorta. CONCLUSIONS Left ventricular ejection fraction 55-60% Mildly increased left ventricular wall thickness RVSP 24 No mitral regurgitation Mild tricuspid regurgitation Previewed by: Dr. Liban Hughes DO (Electronically Signed) Final Date: 10 March 2024 12:34
--- NOTE | 2024-03-10 14:27 | US ---
EXAMINATION TYPE: US vein mapping BILAT DATE OF EXAM: 03/10/2024 2:18 PM COMPARISON: NONE CLINICAL INDICATION: Female, 68 years old with history of preop cardiac surgery; Patient denies any s igns, symptoms, or relevant history , Preop- Cardiac Surgery TECHNIQUE: Grayscale and color Doppler imaging of the lower extremity venous system. SIDE PERFORMED: Bilateral FINDINGS: PATIENT HISTORY: Smoker: Heart Disease: Yes Previous DVT: No Vascular Surgery: Cath this am Discoloration: No Hypertension: Diabetes: Paralysis: Varicosities: No Edema: No DUPLEX FINDINGS: Greater Saphenous: Color flow seen Lesser Saphenous: Color flow seen Measurements in mm: Right Greater Saphenous: Groin: 9.0 x 11.4 mm High Thigh: 3.8 x 5.5 mm Mid Thigh: 4.4 x 4.3 mm Above Knee: 3.1 x 3.9 mm Knee: 2.5 x 3.4 mm Below Knee: 4.7 x 5.4 mm Mid Calf: 2.8 x 3.2 mm At Ankle: 1.5 x 2.4 mm Left Greater Saphenous: Groin: 9.6 x 1.0 mm High Thigh: 5.9 x 8.0 mm Mid Thigh: 5.6 x 6.1 mm Above Knee: 5.3 x 6.0 mm Knee: 5.1 x 5.8 mm Below Knee: 3.6 x 4.3 mm Mid Calf: 3.2 x 3.5 mm At Ankle: 2.6 x 3.1 mm IMPRESSION: 1. No evidence for occlusion. 2. GSV measurements listed above. 3. Performing surgeon to determine viability as conduit. [facility], , 03/10/2024 2:25 PM
--- NOTE | 2024-03-10 14:41 | P.PCN ---
Description of Procedure: PROCEDURES PERFORMED: Left coronary angiography, iFR LAD and circumflex INDICATION: NSTEMI. PROCEDURE: After the risks, benefits and alternatives of the above mentioned procedure explained in detail with the patient, informed consent was obtained. Patient had been taken to the catheterization lab and prepped and draped in usual fashion. A 6-[place] sheath had been placed in the right radial artery previously. The decision was made to perform functional assessment of the circumflex and LAD. A 6-[place] CLS 3.0 guide was used to engage the left main. Heparin was given. A 0.014 pressure wire was advanced to the proximal left main and normalize. The pressure is advanced into the mid circumflex and iFR was performed and was normal at 0.92. The wire was repositioned into the mid LAD and iFR was performed and was grossly abnormal 0.71. The right radial sheath was removed and a TR band was placed with hemostasis achieved. The patient tolerated the procedure well. Patient was transported back to the post catheterization holding area in stable condition. Conscious Sedation: Patient was monitored under the direct supervision of myself for conscious sedation using Versed and fentanyl for a total duration of 22 minutes HEMODYNAMICS: Ao: 132/71 SELECTIVE CORONARY ARTERIOGRAPHY: LEFT MAIN: The left main is a large caliber vessel which bifurcates into the LAD and circumflex. There is no significant stenosis. LEFT ANTERIOR DESCENDING CORONARY ARTERY: LAD is a large caliber vessel which wraps around to the apex. There is a long proximal LAD 60-70% stenosis followed by relatively normal mid to distal LAD LEFT CIRCUMFLEX CORONARY ARTERY: Left circumflex is a moderate caliber vessel with an ostial 70% stenosis and otherwise mild luminal irregularities. RIGHT CORONARY ARTERY: The right coronary artery was not imaged however seen to be nondominant with a 90% acute marginal stenosis FINAL IMPRESSION: 1. CAD as described above including proximal LAD 60-70%, ostial circumflex 70% stenosis 2. Abnormal iFR LAD, borderline iFR circumflex PLAN: 1. Aggressive risk factor modification per most recent ACC/AHA guidelines. 2. CABG evaluation
--- NOTE | 2024-03-10 14:43 | P.GSCN ---
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 Carranza's office for primary care. She has a previous medical history of brain aneurysm with coiling in 2019 and stent in 2020, hypertension, hyperlipidemia, hypothyroid, asymptomatic left subclavian stenosis, left sided nephrectomy, Mnire's disease, previous tobacco dependence, anxiety, and family history of myocardial infarction in both her mother and her father. She presented to [facility] emergency room yesterday after she woke up with substernal chest pain and palpitations. She states she has never had this before although with further probing she did admit to recent attacks of chest tightness which she attributed to her anxiety and thought she was having panic attacks. She denied any shortness of breath, nausea, lightheadedness or diaphoresis. She called 911, in the ambulance she was found to be in A-fib with RVR although she converted back to normal sinus rhythm prior to arrival to the hospital. In the emergency room a chest x-ray was completed demonstrating no acute process. Brain CT was completed demonstrating previous embolization coil in the anterior midline, mild chronic small vessel ischemic disease, no acute intracranial abnormality. EKG showed sinus rhythm. Chest CT was also completed without evidence of pulmonary embolus, there was noted mild emphysema, as well as a 1.2 cm enlarged lymph node in the jessica. Lab work revealed WBC 6.0, hemoglobin 16, platelet count 242, D-dimer 0.81, creatinine 0.80, BNP 281, troponin 0.018 which elevated to 0.066, total bili 1.6, AST 90, TSH 14.2 with free T4 1.23. Patient was admitted for non-STEMI, consultation was placed to cardiology for chest pain and new onset A-fib, vascular surgery was consulted for left subclavian stenosis. The patient was seen by Dr. Campos with no plans for surgical intervention. Transthoracic echocardiogram was ordered by cardiology which demonstrated normal left ventricular systolic function with EF 55 to 60%, mild tricuspid regurgitation with no other significant valvular pathology, and normal size aortic root and proximal ascending aorta. Heart catheterization was completed today by Dr. Farr revealing coronary artery disease. Due to this finding consultation was placed to Dr. Conklin from cardiothoracic surgery for surgical revascularization recommendations. Review of Systems Review of systems was completed and was negative except as noted - Cardiovascular Reports as per HPI, Reports chest pain, Reports palpitations Past Medical History Past Medical History: Atrial Fibrillation, Coronary Artery Disease (CAD), Chest Pain / Angina, Hearing Disorder / Deafness, Hyperlipidemia, Hypertension, Myocardial Infarction (VT), Respiratory Disorder, Thyroid Disorder, Vascular Disorder Additional Past Medical History / Comment(s): 03/2019 brain aneurysm with rupture status post brain coil at [facility], status post cerebral stent in 2019, meniere's disese/vertigo and had surgery behind R ear, bilateral [place]/wears aides, L ureteral hernia surgically repaired/then scarred causing blockage and had L nephrectomy, murmur, bronchitis, hypothyroid, sinus problems/allergies and recent sinus infection, bronchitis, left subclavian stenosis. History of Any Multi-Drug Resistant Organisms: None Reported Past Surgical History: Heart Catheterization, Hysterectomy, Orthopedic Surgery Additional Past Surgical History / Comment(s): Left nephrectomy, brain aneurysm with coil then stent in brain, R behind ear surgery for Meniere's, colonoscopy. Past Anesthesia/Blood Transfusion Reactions: No Reported Reaction Additional Past Anesthesia/Blood Transfusion Reaction / Comm: Pt has received blood with misscarriage and when had hysterectomy without reaction. Past Psychological History: Anxiety, Depression, Panic Disorder Additional Psychological History / Comment(s): Pt resides alone in a condo. She is independent. Smoking Status: Former smoker Past Alcohol Use History: None Reported Additional Past Alcohol Use History / Comment(s): Pt started smoking in 1967 cigarettes then cigars lightly. She would quit years at a time and quit for good in 2009 Past Drug Use History: None Reported - Past Family History Mother Family Medical History: Hypertension, Myocardial Infarction (VT) Additional Family Medical History / Comment(s): Mother is . Father Family Medical History: Diabetes Mellitus, Myocardial Infarction (VT) Additional Family Medical History / Comment(s): Father is Medications and Allergies Home Medications Medication Instructions Recorded Confirmed Type Calcium Carbonate/Vitamin D3 2 tab PO DAILY 09/21/14 03/09/24 History [Calcium 600-Vit D3 400 Tablet] cycloSPORINE [Restasis] 1 drop BOTH EYES BID 09/21/14 03/09/24 History Vitamin E (Dl,Tocopheryl Acet) 400 unit PO DAILY 04/18/19 03/09/24 History [Vitamin E (400 Iu = 180 mg)] Clopidogrel Bisulfate [Plavix] 75 mg PO DAILY 11/24/19 03/09/24 History Cyanocobalamin (Vitamin B-12) 1,000 mcg PO DAILY 11/24/19 03/09/24 History [Vitamin B-12] LORazepam [Ativan] 0.5 mg PO BID 11/24/19 03/09/24 History Vitamin B Complex/Folic Acid 1 tab PO DAILY 11/24/19 03/09/24 History [B-Complex Tablet] Levothyroxine Sodium [Synthroid] 88 mcg PO DAILY 03/09/24 03/09/24 History Metoprolol Tartrate [Lopressor] 75 mg PO BID 03/09/24 03/09/24 History Multivit-Min/Iron/Folic/Lutein 1 tab PO DAILY 03/09/24 03/09/24 History [Centrum Silver Women Tablet] Pitavastatin Calcium [Livalo] 1 mg PO HS 03/09/24 03/09/24 History amLODIPine [Norvasc] 5 mg PO BID 03/09/24 03/09/24 History Allergies Allergy/AdvReac Type Severity Reaction Status Date / Time clarithromycin [From Biaxin] Allergy Unknown Verified 03/09/24 08:27 clonidine Allergy Swelling Verified 03/09/24 08:27 Iodinated Contrast Media Allergy Unknown Verified 03/09/24 08:27 [Iodinated Contrast Media - IV Dye] levofloxacin [From Levaquin] Allergy Unknown Verified 03/09/24 08:27 methylprednisolone Allergy Rash/Hives Verified 03/09/24 08:27 [From Medrol] moxifloxacin HCl Allergy Unknown Verified 03/09/24 08:27 [From Avelox] scopolamine Allergy Rash/Hives Verified 03/09/24 08:27 [From Transderm-Scop] Sulfa (Sulfonamide Allergy Unknown Verified 03/09/24 08:27 Antibiotics) ciprofloxacin [From Cipro] AdvReac Rash/Hives Verified 03/09/24 08:27 clindamycin AdvReac HEARTBURN Verified 03/09/24 08:27 doxycycline AdvReac Headache & Verified 03/09/24 08:27 Vomitting nitrofurantoin AdvReac Headache & Verified 03/09/24 08:27 [From Macrobid] Vomitting nitrofurantoin AdvReac Headache & Verified 03/09/24 08:27 macrocrystalline Vomitting [From Macrobid] Surgical - Exam Vital Signs Temp Pulse Resp BP Pulse Ox 98.0 F 86 18 177/78 97 03/09/24 04:43 03/09/24 04:43 03/09/24 04:43 03/09/24 04:43 03/09/24 04:43 CONSTITUTIONAL: Awake and alert, appears comfortable, cooperative, well- developed, well-nourished, no pain, no acute distress EYES: Pupils equal, round, reactive to light, normal ocular movement ENT: Moist mucous membranes without oral lesions present, very hard of hearing NECK: No masses, no bruits, trachea midline RESPIRATORY: Lungs sounds clear to auscultation bilaterally. Respirations even, nonlabored. Currently on room air with oxygen saturation 98%. Strong cough. No chest wall deformities. No clubbing or cyanosis present CARDIOVASCULAR: S1, S2 present. Regular rate and rhythm, sinus rhythm on telemetry. Palpable peripheral pulses bilaterally. No edema present. No calf pain or tenderness noted. No significant lower extremity varicosities noted GASTROINTESTINAL: Abdomen soft, nontender, nondistended without masses or organomegaly noted. There is no rebound or guarding present. Active bowel sounds present 4 quadrants. GENITOURINARY: Deferred INTEGUMENTARY: Skin is warm and dry, right radial artery heart catheterization site with T band in place NEUROLOGIC: Cranial nerves II through XII intact, normal coordination, no obvious motor or sensory deficits, speech is normal MUSKULOSKELETAL: Able to move all extremities, strength equal bilaterally, normal posture PSYCHIATRIC: Alert and oriented to person place and time, appropriate affect, intact judgment and insight CLINICAL FRAILTY SCORE 2 Results - Labs 03/10/24 06:35 03/10/24 06:35 Abnormal Lab Results - Last 24 Hours (Table) 03/09/24 03/10/24 03/10/24 Range/Units 16:21 00:23 06:35 APTT 163.5 H* 71.3 H (22.0-30.0) sec BUN 18 H (7-17) mg/dL Glucose 107 H (74-99) mg/dL Diabetes panel 03/10/24 Range/Units 06:35 Sodium 142 (137-145) mmol/L Potassium 3.5 (3.5-5.1) mmol/L Chloride 107 (98-107) mmol/L Carbon Dioxide 23 (22-30) mmol/L BUN 18 H (7-17) mg/dL Creatinine 0.97 (0.52-1.04) mg/dL Glucose 107 H (74-99) mg/dL Calcium 9.1 (8.4-10.2) mg/dL Calcium panel 03/10/24 Range/Units 06:35 Calcium 9.1 (8.4-10.2) mg/dL Pituitary panel 03/10/24 Range/Units 06:35 Sodium 142 (137-145) mmol/L Potassium 3.5 (3.5-5.1) mmol/L Chloride 107 (98-107) mmol/L Carbon Dioxide 23 (22-30) mmol/L BUN 18 H (7-17) mg/dL Creatinine 0.97 (0.52-1.04) mg/dL Glucose 107 H (74-99) mg/dL Calcium 9.1 (8.4-10.2) mg/dL Adrenal panel 03/10/24 Range/Units 06:35 Sodium 142 (137-145) mmol/L Potassium 3.5 (3.5-5.1) mmol/L Chloride 107 (98-107) mmol/L Carbon Dioxide 23 (22-30) mmol/L BUN 18 H (7-17) mg/dL Creatinine 0.97 (0.52-1.04) mg/dL Glucose 107 H (74-99) mg/dL Calcium 9.1 (8.4-10.2) mg/dL - Imaging Chest x-ray: report reviewed, image reviewed CT scan - chest: report reviewed, image reviewed EKG: image reviewed Additional studies: Heart catheterization and echocardiogram films reviewed with Dr. Conklin Assessment and Plan Assessment: Coronary artery disease, non-STEMI this admission New onset atrial fibrillation, brief episode, currently sinus Chest pain, secondary to above History of brain aneurysm with coiling in 2019 and stent in 2019 Hypertension Hyperlipidemia Hypothyroid Asymptomatic left subclavian stenosis Left sided nephrectomy Mnire's disease Previous tobacco dependence Anxiety Family history of myocardial infarction in both her mother and her father Plan: The patient was seen and examined sitting up in bed on the cardiac stepdown unit in no acute distress. Currently denies any chest pain or shortness of breath. Chart/diagnostics reviewed. Heart catheterization and echocardiogram films reviewed with Dr. Conklin who will see and examine the patient. The usual perioperative course of open-heart surgery was discussed in detail with the patient, risks and benefits were reviewed, all questions were answered. Preoperative testing initiated, once completed we will calculate STS risk score and discussed with the patient. She did have a recent carotid Doppler completed at Dr. Campos's office in January, will obtain. Recommend continuing aspirin, statin, beta-kimo therapy. Plavix would need to be held 5 to 7 days prior to surgical intervention, she did have Plavix this morning. Increase activity as tolerated. Medical management of other comorbidities per internal medicine, cardiology. Thank you for this consult we will continue to follow along and make further recommendations as appropriate. I have personally seen and examined the patient, performed the documentation and the assessment and plan as written. Number of minutes spent on the visit: 30. Zarina Agarwal, MARIETTA-C
--- NOTE | 2024-03-10 14:49 | P.PN ---
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 She presented to the emergency department with a chief complaint of chest pain and palpitations. Patient reports yesterday she was experiencing some sinus pressure/congestion and headache. She reports she recently completed antibiotic for sinus infection on Thursday. She reports her blood pressures have been running slightly elevated contributing to her headache and has been monitoring closely at home. She reports awakening to a severe pressure to midsternal chest accompanied by palpitations like her heart was beating very fast. She denies history of this occurring in the past and became very concerned so she called EMS. Per documentation in chart patient was found to be in atrial fibrillation with RVR by EMS. She was given aspirin 324 mg and transferred to our facility. While in route to our facility, patient converted from A-fib RVR back into normal sinus mechanism. Upon arrival to our facility, patient underwent eval uation in the emergency department. Vital signs upon arrival show blood pressure 177/78, heart rate 86, respiratory rate 18, temp 98.0 F, and SpO2 of 97% on room air. EKG completed showing normal sinus rhythm at [address] depression in inferior lead II. Chest x-ray completed negative for acute cardiopulmonary process. CT brain completed showing previous embolization coil anterior midline with mild burden of chronic small vessel ischemic disease but negative for acute intracranial process. Labs completed and reviewed. CBC unremarkable with exception of elevated hematocrit of 46.6. Coagulation profile showing elevated D-dimer of 0.81. BMP showing high anion gap metabolic acidosis with chloride of 110, bicarb of 20, and anion gap of 12 with reports of hyperkalemia with potassium of 5.4 but also reported as a hemolyzed specimen. Blood glucose 139. Liver profile showing hyperbilirubinemia with elevated total bili of 1.6 and AST of 90 otherwise normal findings. Initial troponin 0.018. TSH was 14.200 with free T4 normal at 1.23. Patient was admitted under our services with consultation to cardiology. Physical exam: Patient seen and fully evaluated at bedside this morning upon returning from cardiac cath. Per RN reported patient's cardiac cath revealed multivessel coronary artery disease and cardiothoracic surgery was consulted for evaluation for CABG. Patient reports she is currently feeling well and denies having any chest pain, palpitations, or shortness of breath at this time. Patient reports feeling little anxious over this information and the possible need for a CABG. Patient's family member at bedside at this time. All questions answered. Vital signs reviewed and stable. General: Nontoxic, no distress and appears stated age. Derm: Skin warm and dry, normal coloration for ethnicity. Head: Atraumatic, normocephalic and symmetric. Eyes: EOM's intact, no lid lag, and anicteric sclera Mouth: no lip lesions, mucus membranes moist Cardiovascular: regular rate and rhythm with normal S1S2, systolic murmur, positive posterior tibial pulses bilaterally, and cap refill < 2 seconds. Lungs: Respirations even, regular, and unlabored on room air. Lungs CTA bilaterally, no rhonchi, no rales, no wheezing, and no accessory muscle usage. Abdominal: soft, nontender to palpation, no guarding, no appreciable organomegaly Ext: ROM intact. No gross muscle atrophy, no edema, no contractures Neuro: Speech clear, face symmetrical and CN II-XII grossly intact with no noted focal neuro deficits Psych: Alert and oriented to person, place, time, and situation. Appropriate and pleasant affect. 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 -Cardiothoracic surgery was consulted, awaiting recommendations -Telemetry monitoring -Initial troponin 0.018 with repeat troponin of 0.066 and 0.055. -Continue low intensity heparin infusion. Will monitor PTT closely for goal therapeutic range of 49 to 74 seconds. PTT currently therapeutic at 71.3. -Continue aspirin 81 mg daily, amlodipine 5 mg twice daily, atorvastatin 40 mg nightly, Plavix 75 mg daily, losartan 50 mg daily, and metoprolol 75 mg twice daily. -Lipid profile with a.m. labs. -Echocardiogram to be completed. 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 -Order placed for migraine cocktail consisting of Toradol 15 mg IVP x 1 dose, Benadryl 25 mg IVP x 1 dose, and Compazine 10 mg IVP x 1 dose. History of left nephrectomy -Continue to follow-up outpatient with nephrology. Currently renal function stable. Will continue to monitor closely. Hypothyroidism -Continue daily medication regimen with levothyroxine 88 mcg daily. Anxiety -Continue Ativan 0.5 mg twice daily. Data and imaging reviewed: Morning labs reviewed. CBC unremarkable. Coagulation profile normal findings. PTT therapeutic at 71.3 seconds. BMP showing mild prerenal azotemia with BUN of 18 otherwise normal findings. Blood glucose 107. Magnesium 2.1. Vital signs reviewed. Blood pressure elevated at 171/77, heart rate 65, respiratory rate 17, temp 98.0 F, and SpO2 of 98% on room air. CODE STATUS: Full code DVT prophylaxis: Heparin infusion Anticipated discharge date: Pending clinical course Home Anticipated discharge place: Home Patient was seen independently by Nurse Practitioner. This document was prepared using [employer] dictation software. Please allow for errors in public speaking instructor while rare they do occur. Objective - Vital Signs Vital signs: Vital Signs Temp 97.6 F 03/09/24 20:55 Pulse 79 03/10/24 04:00 Resp 18 03/10/24 04:00 BP 148/78 03/10/24 04:00 Pulse Ox 93 L 03/10/24 04:00 FiO2 Intake & Output 03/09/24 03/10/24 03/10/24 18:59 06:59 18:59 Intake Total 54.884 Balance 54.884 Weight 67 kg Intake: Intake, IV Titration 54.884 Amount Heparin Sod,Pork in 0.45% 54.884 NaCl 25,000 unit In 0.45 % NaCl 1 250ml.bag @ 12 UNITS/KG/HR 8.274 mls/hr IV .Q24H ALISIA Rx#: [id number] Other: Voiding Method Toilet # Voids 1 - Labs CBC & Chem 7: 03/10/24 06:35 03/10/24 06:35 Labs: Abnormal Lab Results - Last 24 Hours (Table) 03/09/24 03/09/24 03/09/24 Range/Units 05:07 08:25 11:56 APTT (22.0-30.0) sec BUN (7-17) mg/dL Glucose (74-99) mg/dL Troponin I 0.066 H* 0.055 H* (0.000-0.034) ng/mL TSH 14.200 H (0.465-4.680) mIU/L 03/09/24 03/10/24 03/10/24 Range/Units 16:21 00:23 06:35 APTT 163.5 H* 71.3 H (22.0-30.0) sec BUN 18 H (7-17) mg/dL Glucose 107 H (74-99) mg/dL Troponin I (0.000-0.034) ng/mL TSH (0.465-4.680) mIU/L
[2024-03-10 16:10] LABS: LDL Cholesterol,Calculated 99.2 mg/dL (0.0-131.0)
[2024-03-10] MEDS: hydrALAZINE HCL 25 MG TAB PO STA (18:20)
--- NOTE | 2024-03-10 22:16 | CC ---
CARDIAC CATHETERIZATION REPORT INDICATION: Non ST-segment elevation CT. PROCEDURE NOTE: After obtaining informed consent, left heart catheterization and coronary angiogram were performed via the right radial artery using standard Mona catheters. The patient tolerated the procedure well without any obvious immediate complications. The patient received moderate conscious sedation. Total sedation time was 15 minutes. Right radial artery access was obtained using Seldinger technique, 6-Yi sheath was placed. Catheters and wires were floated into the ascending aorta under fluoroscopic guidance. The patient received verapamil and heparin per protocol. FINDINGS: 1. Hemodynamics: Left ventricular end-diastolic pressure is 25 mm. There is no significant gradient across the aortic valve. 2. Left ventriculogram was not performed. 3. Angiographic data: Right coronary artery is a nondominant vessel. There is a focal 90% stenosis involving the proximal portion of the PLV branch. Left main coronary artery appears calcified but is free of significant stenosis. Divides into left anterior descending coronary artery and circumflex coronary artery. Circumflex coronary artery shows an ostial 70% to 80% stenosis. The proximal LAD has a long segment of stenosis that seems to be 50% to 60% stenosis. CONCLUSIONS: Three-vessel coronary artery disease with a nondominant right coronary artery and significant disease involving proximal LAD and circumflex coronary artery. PLAN: I reviewed angiographic data with Dr. Hughes, the on-call ware finisher. We will perform IFR and if it comes back to be significant, then I will consult a CT surgeon for surgical revascularization. If the LAD is not significant, we may just manage the circ medically and see how she does and if she is symptom-free, we may stick to it attempt high-risk angioplasty. MMODL / IJN: [id number] /
[2024-03-10] MEDS: ALPRAZolam 0.25 MG TAB PO PRN (23:27)
[2024-03-11 00:51] LABS: ALT 22 U/L (4-34); AST 27 U/L (14-36); African American GFR (CKD) 85 (>60 ml/min/1.73 sqM); Albumin 4.5 g/dL (3.5-5.0); Alkaline Phosphatase 81 U/L (38-126); Anion Gap 11 mmol/L; Blood Urea Nitrogen 22 mg/dL (7-17); Calcium 9.4 mg/dL (8.4-10.2); Carbon Dioxide 19 mmol/L (22-30); Chloride 108 mmol/L (98-107); Glucose 207 mg/dL (74-99); Non-African American GFR(CKD) 73 (>60 ml/min/1.73 sqM); Potassium 4.5 mmol/L (3.5-5.1); Sodium 138 mmol/L (137-145); Total Bilirubin 0.5 mg/dL (0.2-1.3); Total Protein 7.2 g/dL (6.3-8.2)
[2024-03-11 00:59] LABS: HCT 43.4 % (34.0-46.0); HGB 14.5 gm/dL (11.4-16.0); MCH 29.6 pg (25.0-35.0); MCHC 33.4 g/dL (31.0-37.0); MCV 88.4 fL (80.0-100.0); Platelet Count 277 k/uL (150-450); RBC 4.91 m/uL (3.80-5.40); RDW 12.5 % (11.5-15.5); WBC 8.8 k/uL (3.8-10.6)
--- NOTE | 2024-03-11 08:27 | P.PN ---
Subjective Progress Note Date: 03/11/24 Principal diagnosis: Coronary artery disease, non-STEMI this admission, new onset atrial fibrillation. History of brain aneurysm with coiling in 2019 and stent in 2019, hypertension, hyperlipidemia, hypothyroid, asymptomatic left subclavian stenosis, left sided nephrectomy, Mnire's disease, previous tobacco dependence, anxiety, family history of myocardial infarction in both her mother and her father The patient was seen and examined this morning sitting up in bed in no acute distress. She denies any current chest pain or shortness of breath. She states she has been ambulatory to and from the bathroom as well as of the hallway without incident. She was seen yesterday by Dr. Conklin who discussed recommendations for open heart surgery, patient is agreeable. Unfortunately the patient had Plavix yesterday morning and this would need to be stopped for 5 to 7 days prior to surgery. Patient verbalizes understanding as she has had to stop her Plavix in the past for surgeries. Preoperative testing completed, STS risk calculated and discussed with the patient. No other new concerns at this time. Objective - Vital Signs Vital signs: Vital Signs Temp 98.2 F 03/11/24 03:16 Pulse 89 03/11/24 03:16 Resp 17 03/11/24 03:16 BP 145/84 03/11/24 03:16 Pulse Ox 97 03/11/24 03:16 FiO2 Intake & Output 03/10/24 03/11/24 03/11/24 18:59 06:59 18:59 Intake Total 50 240 Balance 50 240 Weight 67.8 kg Intake: IV 50 Oral 240 Other: Voiding Method Toilet Toilet # Voids 1 1 - Exam CONSTITUTIONAL: Appears comfortable, cooperative, no acute distress RESPIRATORY: Lungs sounds clear bilaterally. Respirations even, nonlabored. Currently on room air with oxygen saturation 97%. Able to achieve 2000 mL on incentive spirometry. Strong cough. CARDIOVASCULAR: S1, S2 present. Regular rate and rhythm, sinus rhythm on telemetry. Palpable peripheral pulses bilaterally. Trace bilateral lower e xtremity edema present. No calf pain or tenderness noted GASTROINTESTINAL: Abdomen soft, nontender, nondistended. Active bowel sounds present 4 quadrants. Tolerating diet GENITOURINARY: Continues to void INTEGUMENTARY: Skin is warm and dry NEUROLOGIC: Cranial nerves II through XII intact MUSKULOSKELETAL: Able to move all extremities, strength equal bilaterally, gait normal PSYCHIATRIC: Alert and oriented to person place and time, appropriate affect, intact judgment and insight - Allied health notes Allied health notes reviewed: nursing - Labs CBC & Chem 7: 03/11/24 00:01 03/11/24 00:30 Labs: Abnormal Lab Results - Last 24 Hours (Table) 03/10/24 03/11/24 Range/Units 06:35 00:30 Chloride 108 H (98-107) mmol/L Carbon Dioxide 19 L (22-30) mmol/L BUN 18 H 22 H (7-17) mg/dL Glucose 107 H 207 H (74-99) mg/dL Assessment and Plan Assessment: Coronary artery disease, non-STEMI this admission New onset atrial fibrillation, brief episode, currently sinus Chest pain, secondary to above History of brain aneurysm with coiling in 2019 and stent in 2019 Hypertension Hyperlipidemia, cholesterol 181, LDL 99 Hypothyroid, TSH 14.2, T4 1.23 Asymptomatic left subclavian stenosis Left sided nephrectomy Mnire's disease Previous tobacco dependence, preoperative FEV1 99% of predicted Anxiety Family history of myocardial infarction in both her mother and her father Plan: Continue to maximize medical therapy with aspirin, statin, beta-kimo. Plavix discontinued yesterday, needs to be held 5 to 7 days prior to surgical intervention STS risk were calculated and discussed with the patient 5 m walk test completed, #1 3.18 sec, #2 2.83 sec, #3 3.08 sec Increase activity as tolerated Continue to reinforce preoperative teaching Will consult pulmonology for clearance Will plan for coronary artery bypass surgery early next week, timing to be determined Medical management of other comorbidities per internal medicine, cardiology.
[2024-03-11 09:10] LABS: Hepatitis A Antibody IgM Nonreactive (Nonreactive); Hepatitis B Core IgM Nonreactive (Nonreactive); Hepatitis B Surface Antigen Nonreactive (Nonreactive); Hepatitis C IgG Antibody Nonreactive (Nonreactive)
[2024-03-11] MEDS: APIXABAN 5 MG TAB PO SCH (09:30)
[2024-03-11] MEDS: ISOSORBIDE MONONITRATE ER 30 MG TAB.ER.24H PO SCH (09:31)
[2024-03-11] MEDS ORDERED: HEPARIN SODIUM 1,000 UN/ML (10ML VL) IV PRN (11:01)
--- NOTE | 2024-03-11 11:34 | P.PN ---
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 We have been asked to evaluate the patient for acute chest pain and new onset of A- fib with RVR. Patient states that she woke up and had to chest pain and also complained of headache. She states her blood pressure was high at home. She denies any previous history of coronary artery disease. She states she did have about of chest pain many years ago and was determined to be related to anxiety. She presented with a blood pressure of 177/78. Now, blood pressure 149/69, heart rate in the 60s, pulse ox 95% on room air. Patient is been started on heparin drip. She has also been seen by vascular surgery regarding left subclavian artery stenosis. Discussed option of possible cardiac catheterization with the patient. Plan to obtain more information and will reassess tomorrow. -EKG: Sinus rhythm with /nonspecific ST changes, telemetry strips from EMS reviewed revealing atrial fibrillation 135 bpm -Chest x-ray: No acute process -CTA chest: No evidence of pulmonary embolus. COPD with mild emphysema. Lymph nodes in the jessica probably reactive. -CT brain previous embolization coil anterior midline. Mild burden of chronic small vessel ischemic disease. No acute process -Laboratory studies: WBC 6, hemoglobin 16, D-dimer 0.81, sodium 142, potassium 5.4, creatinine 0.8. Troponin 0.018 and 0.066, TSH 14.2. -Home cardiac medications: Amlodipine 5 mg twice daily, Plavix 75 mg daily, Lopressor 75 mg twice daily, Livalo 1 mg at bedtime, also on levothyroxine 88 mcg daily. -Echocardiogram performed 10/26/2020 revealed EF 55 to 60%, mild MR, mild TR. 03/10/24 Patient seen and examined on the Cardiac Stepdown Unit. Patient denies chest pain, no shortness of breath. Patient has been maintained on Heparin IV. She is scheduled for [facility] today with Dr. Daysi Farr. Echocardiogram has been obtained and report is pending. 03/11/24 Patient seen and examined. Yesterday, patient underwent cardiac catheterization with Dr. Vann that found three-vessel coronary artery disease with nondominant right coronary artery and significant disease involving the proximal LAD and circumflex. iFR of the LAD was abnormal and borderline IFR of the circumflex. A referral was placed with CTS with plan for surgical intervention on Thursday, delayed because patient was on Plavix. Patient denies having any chest pain at this time. She has been ambulating in the hallway without symptoms. Echocardiogram revealed EF of 55 to 60%, RVSP 24, no mitral regurgitation, mild tricuspid regurgitation. Physical examination: Gen: This is a 68-year-old female in no acute distress VS: reviewed HEENT: Head is atraumatic, normocephalic. Pupils equal, round. Sclerae is anicteric. NECK: Supple. No JVD. LUNGS: Clear to auscultation. No wheezes or rhonchi. No intercostal retractions. HEART: Regular rate and rhythm. No murmur. ABDOMEN: Soft No tenderness. EXTREMITIES: No pedal edema. No calf tenderness. NEUROLOGICAL: Patient is awake, alert and oriented x3. Assessment: NSTEMI scheduled for CABG on 03/16 New onset paroxysmal atrial fibrillation, currently in sinus rhythm Uncontrolled hypertension Headache, resolved History of brain aneurysm status post coiling Hyperlipidemia Hypothyroidism Asymptomatic left subclavian artery stenosis Plan: Continue current cardiac medications: Norvasc 5 mg twice daily, aspirin 81 mg daily, Lipitor 40 mg at bedtime, losartan 50 mg daily, Lopressor 75 mg twice daily Start patient on Imdur 30 mg daily Plavix has been discontinued by CTS Patient will be resumed on heparin drip Further recommendations to follow based upon clinical course Nurse practitioner note has been reviewed, I agree with documented findings and plan of care. Patient was seen and examined. Objective - Vital Signs Vital signs: Vital Signs Temp 98.2 F 03/11/24 08:15 Pulse 75 03/11/24 08:15 Resp 17 03/11/24 08:15 BP 129/77 03/11/24 08:15 Pulse Ox 99 03/11/24 08:15 FiO2 Intake & Output 03/10/24 03/11/24 03/11/24 18:59 06:59 18:59 Intake Total 50 240 Balance 50 240 Weight 67.8 kg Intake: IV 50 Oral 240 Other: Voiding Method Toilet Toilet # Voids 1 1 - Labs CBC & Chem 7: 03/11/24 00:01 03/11/24 00:30 Labs: Abnormal Lab Results - Last 24 Hours (Table) 03/11/24 Range/Units 00:30 Chloride 108 H (98-107) mmol/L Carbon Dioxide 19 L (22-30) mmol/L BUN 22 H (7-17) mg/dL Glucose 207 H (74-99) mg/dL
[2024-03-11 11:42] LABS: Basophils % (A) 0 %; Eosinophils % (A) 0 %; HCT 40.8 % (34.0-46.0); HGB 13.5 gm/dL (11.4-16.0); Lymphocytes # (A) 1.6 k/uL (1.0-4.8); Lymphocytes % (A) 11 %; MCHC 33.1 g/dL (31.0-37.0); MCV 87.6 fL (80.0-100.0); Mean Platelet Volume 7.2; Monocytes # (A) 1.4 k/uL (0-1.0); Monocytes % (A) 9 %; Neutrophils # (A) 11.9 k/uL (1.3-7.7); Neutrophils % (A) 79 %; Platelet Count 297 k/uL (150-450); RBC 4.66 m/uL (3.80-5.40); RDW 12.7 % (11.5-15.5); WBC 15.1 k/uL (3.8-10.6)
[2024-03-11 11:57] LABS: Partial Thromboplastin Time 23.4 sec (22.0-30.0); Prothrombin Time 10.6 sec (10.0-12.5)
--- NOTE | 2024-03-11 12:02 | US ---
EXAMINATION TYPE: Pre-Operative Non-Invasive Evaluation of the hand for Potential Radial Artery Beto tang, Measurements only Exam done portable DATE OF EXAM: 03/11/2024 11:15 AM CLINICAL INDICATION: Female, 68 years old with history of measurements only; , Preop- Cardiac Surgery TECHNIQUE:Grayscale and color Doppler imaging of the radial artery(s) SIDE PERFORMED: Left FINDINGS: Dominant hand: Right Duplex Findings: Radial Artery: Color flow seen Measurements in mm, transverse view: Left Radial: Proximal: 3.0 x 3.1 mm Mid: 2.8 x 2.6 mm Distal: 3.0 x 3.1 mm IMPRESSION: 1. No evidence for vascular occlusion. 2. Measurements as described above. [facility], , 03/11/2024 11:59 AM
--- NOTE | 2024-03-11 12:55 | P.PN ---
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 She presented to the emergency department with a chief complaint of chest pain and palpitations. Patient reports yesterday she was experiencing some sinus pressure/congestion and headache. She reports she recently completed antibiotic for sinus infection on Thursday. She reports her blood pressures have been running slightly elevated contributing to her headache and has been monitoring closely at home. She reports awakening to a severe pressure to midsternal chest accompanied by palpitations like her heart was beating very fast. She denies history of this occurring in the past and became very concerned so she called EMS. Per documentation in chart patient was found to be in atrial fibrillation with RVR by EMS. She was given aspirin 324 mg and transferred to our facility. While in route to our facility, patient converted from A-fib RVR back into normal sinus mechanism. Upon arrival to our facility, patient underwent eval uation in the emergency department. Vital signs upon arrival show blood pressure 177/78, heart rate 86, respiratory rate 18, temp 98.0 F, and SpO2 of 97% on room air. EKG completed showing normal sinus rhythm at [address] depression in inferior lead II. Chest x-ray completed negative for acute cardiopulmonary process. CT brain completed showing previous embolization coil anterior midline with mild burden of chronic small vessel ischemic disease but negative for acute intracranial process. Labs completed and reviewed. CBC unremarkable with exception of elevated hematocrit of 46.6. Coagulation profile showing elevated D-dimer of 0.81. BMP showing high anion gap metabolic acidosis with chloride of 110, bicarb of 20, and anion gap of 12 with reports of hyperkalemia with potassium of 5.4 but also reported as a hemolyzed specimen. Blood glucose 139. Liver profile showing hyperbilirubinemia with elevated total bili of 1.6 and AST of 90 otherwise normal findings. Initial troponin 0.018. TSH was 14.200 with free T4 normal at 1.23. Patient was admitted under our services with consultation to cardiology. Physical exam: Patient seen and fully evaluated at bedside this morning. She reports feeling mildly anxious this morning. She denies having chest pain, palpitations or shortness of breath. Vital signs reviewed and stable. General: Nontoxic, no distress and appears stated age. Derm: Skin warm and dry, normal coloration for ethnicity. Head: Atraumatic, normocephalic and symmetric. Eyes: EOM's intact, no lid lag, and anicteric sclera Mouth: no lip lesions, mucus membranes moist Cardiovascular: regular rate and rhythm with normal S1S2, systolic murmur, positive posterior tibial pulses bilaterally, and cap refill < 2 seconds. Lungs: Respirations even, regular, and unlabored on room air. Lungs CTA bilaterally, no rhonchi, no rales, no wheezing, and no accessory muscle usage. Abdominal: soft, nontender to palpation, no guarding, no appreciable organomegaly Ext: ROM intact. No gross muscle atrophy, no edema, no contractures Neuro: Speech clear, face symmetrical and CN II-XII grossly intact with no noted focal neuro deficits Psych: Alert and oriented to person, place, time, and situation. Appropriate and pleasant affect. Assessment and Plan of Care: Chest pain and palpitations, rule out acute coronary event Atrial fibrillation with RVR, per EMS report Elevated troponin Hypertension Hyperlipidemia -Cardiology following and took patient for cardiac catheterization which revealed multivessel coronary artery disease, water resources engineer recommending evaluation by cardiothoracic surgery for CABG. -Cardiothoracic surgery evaluated and planning for CABG -Telemetry monitoring -Initial troponin 0.018 with repeat troponin of 0.066 and 0.055. -Continue low intensity heparin infusion. Will monitor PTT closely for goal therapeutic range of 49 to 74 seconds. -Continue aspirin 81 mg daily, amlodipine 5 mg twice daily, atorvastatin 40 mg nightly, Plavix 75 mg daily, losartan 50 mg daily, and metoprolol 75 mg twice daily. -Lipid profile with a.m. labs. -Echocardiogram to be completed. 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 -Order placed for migraine cocktail consisting of Toradol 15 mg IVP x 1 dose, Benadryl 25 mg IVP x 1 dose, and Compazine 10 mg IVP x 1 dose. History of left nephrectomy -Continue to follow-up outpatient with nephrology. Currently renal function stable. Will continue to monitor closely. Hypothyroidism -Continue daily medication regimen with levothyroxine 88 mcg daily. Anxiety -Continue Ativan 0.5 mg twice daily. Data and imaging reviewed: Morning labs reviewed. CBC showing leukocytosis with WBC count of 15.1. Coagulation profile normal findings. BMP showing non-anion gap metabolic acidosis with chloride of 108, bicarb of 19, and anion gap of 11. BUN elevated at 22. Blood glucose elevated this morning at 207. Liver profile unremarkable. Hepatitis panel nonreactive. Vital signs reviewed. Blood pressure 129/77, heart rate 75, respiratory rate 17, temp 98.2 F, and SpO2 of 99% on room air. CODE STATUS: Full code DVT prophylaxis: Heparin infusion Anticipated discharge date: Pending clinical course Home Anticipated discharge place: Home Patient was seen independently by Nurse Practitioner. This document was prepared using [employer] dictation software. Please allow for errors in psychological examiner while rare they do occur. Hubert Garinca NP rendered care for this patient independently, reviewed the findings and plan as documented in the note above and agree with plan. I did not physically speak with or examine the patient on this date. Objective - Vital Signs Vital signs: Vital Signs Temp 98.2 F 03/11/24 08:15 Pulse 75 03/11/24 08:15 Resp 17 03/11/24 08:15 BP 129/77 03/11/24 08:15 Pulse Ox 99 03/11/24 08:15 FiO2 Intake & Output 03/10/24 03/11/24 03/11/24 18:59 06:59 18:59 Intake Total 50 240 Balance 50 240 Weight 67.8 kg Intake: IV 50 Oral 240 Other: Voiding Method Toilet Toilet # Voids 1 1 - Labs CBC & Chem 7: 03/11/24 11:29 03/11/24 00:30 Labs: Abnormal Lab Results - Last 24 Hours (Table) 03/11/24 Range/Units 00:30 Chloride 108 H (98-107) mmol/L Carbon Dioxide 19 L (22-30) mmol/L BUN 22 H (7-17) mg/dL Glucose 207 H (74-99) mg/dL
[2024-03-11] MEDS: HEPARIN SODIUM 1,000 UN/ML (10ML VL) IV ONE (13:14)
[2024-03-11] MEDS: HEPARIN SOD,PORK IN 0.45% NACL 25,000 UNIT in 0.45% NACL 1 250ML.BAG IV SCH (13:15)
[2024-03-11] MEDS: LORazepam 0.5 MG TAB PO PRN (16:54)
[2024-03-12 07:20] LABS: WBC 11.2 k/uL (3.8-10.6)
[2024-03-12 07:21] LABS: Basophils # (A) 0.1 k/uL (0-0.2); Basophils % (A) 1 %; Eosinophils # (A) 0.1 k/uL (0-0.7); Eosinophils % (A) 1 %; HGB 13.3 gm/dL (11.4-16.0); Lymphocytes # (A) 3.1 k/uL (1.0-4.8); Lymphocytes % (A) 27 %; MCH 29.4 pg (25.0-35.0); MCHC 33.3 g/dL (31.0-37.0); MCV 88.1 fL (80.0-100.0); Mean Platelet Volume 7.3; Monocytes # (A) 0.8 k/uL (0-1.0); Monocytes % (A) 7 %; Neutrophils % (A) 62 %; Platelet Count 261 k/uL (150-450); RBC 4.54 m/uL (3.80-5.40); RDW 13.3 % (11.5-15.5)
[2024-03-12 07:29] LABS: INR 0.9 (<1.2); Partial Thromboplastin Time 72.4 sec (22.0-30.0); Prothrombin Time 10.5 sec (10.0-12.5)
--- NOTE | 2024-03-12 08:46 | P.PN ---
Subjective Progress Note Date: 03/12/24 Principal diagnosis: Coronary artery disease, non-STEMI this admission, new onset atrial fibrillation. History of brain aneurysm with coiling in 2019 and stent in 2019, hypertension, hyperlipidemia, hypothyroid, asymptomatic left subclavian stenosis, left sided nephrectomy, Mnire's disease, previous tobacco dependence, anxiety, family history of myocardial infarction in both her mother and her father The patient was seen and examined this morning sitting up in bed in no acute distress. She denies any current chest pain or shortness of breath. She states she has been ambulatory to and from the bathroom as well as of the hallway without incident. Our plan is for open heart surgery March [address] Conklin. Patient is aware and agreeable. All questions answered. No other new concerns at this time. Objective - Vital Signs Vital signs: Vital Signs Temp 97.8 F 03/11/24 20:05 Pulse 67 03/12/24 03:29 Resp 16 03/12/24 03:29 BP 136/81 03/12/24 03:29 Pulse Ox 97 03/12/24 03:29 FiO2 Intake & Output 03/11/24 03/12/24 03/12/24 18:59 06:59 18:59 Intake Total 540 240 Balance 540 240 Weight 68.6 kg Intake: Oral 540 240 Other: Voiding Method Toilet Toilet # Voids 2 1 - Exam CONSTITUTIONAL: Appears comfortable, cooperative, no acute distress RESPIRATORY: Lungs sounds clear bilaterally. Respirations even, nonlabored. Currently on room air with oxygen saturation 97%. Able to achieve 2000 mL on incentive spirometry. Strong cough. CARDIOVASCULAR: S1, S2 present. Regular rate and rhythm, sinus rhythm on telemetry. Palpable peripheral pulses bilaterally. No edema present. No calf pain or tenderness noted GASTROINTESTINAL: Abdomen soft, nontender, nondistended. Active bowel sounds present 4 quadrants. Tolerating diet GENITOURINARY: Continues to void INTEGUMENTARY: Skin is warm and dry NEUROLOGIC: Cranial nerves II through XII intact MUSKULOSKELETAL: Able to move all extremities, strength equal bilaterally, gait normal PSYCHIATRIC: Alert and oriented to person place and time, appropriate affect, intact judgment and insight - Allied health notes Allied health notes reviewed: nursing - Labs CBC & Chem 7: 03/12/24 06:31 03/11/24 00:30 Labs: Abnormal Lab Results - Last 24 Hours (Table) 03/11/24 03/11/24 03/12/24 Range/Units 11:29 19:15 06:31 WBC 15.1 H (3.8-10.6) k/uL Neutrophils # 11.9 H (1.3-7.7) k/uL Monocytes # 1.4 H (0-1.0) k/uL APTT 45.0 H 72.4 H (22.0-30.0) sec 03/12/24 Range/Units 06:31 WBC 11.2 H (3.8-10.6) k/uL Neutrophils # (1.3-7.7) k/uL Monocytes # (0-1.0) k/uL APTT (22.0-30.0) sec Assessment and Plan Assessment: Coronary artery disease, non-STEMI this admission New onset atrial fibrillation, brief episode, currently sinus Chest pain, secondary to above History of brain aneurysm with coiling in 2018 and stent in 2019 Hypertension Hyperlipidemia, cholesterol 181, LDL 99 Hypothyroid, TSH 14.2, T4 1.23 Asymptomatic left subclavian stenosis Left sided nephrectomy Mnire's disease Previous tobacco dependence, preoperative FEV1 99% of predicted Anxiety Family history of myocardial infarction in both her mother and her father Plan: Continue to maximize medical therapy with aspirin, statin, beta-kimo. Plavix discontinued, continue to hold Increase activity as tolerated Continue to reinforce preoperative teaching Will consult pulmonology for clearance Our plan is for off-pump myocardial revascularization with left internal mammary artery, endoscopic vein harvest, left radial artery harvest, ligation of the left atrial appendage as well as pulmonary vein isolation by Dr. Conklin March 16, 2024 Medical management of other comorbidities per internal medicine, cardiology.
--- NOTE | 2024-03-12 10:36 | P.PN ---
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 She presented to the emergency department on 03/09/24 with a chief complaint of chest pain and palpitations. She reports awakening to a severe pressure to midsternal chest accompanied by palpitations like her heart was beating very fast. She denies history of this occurring in the past and became very concerned so she called EMS. Per documentation in chart patient was found to be in atrial fibrillation with RVR by EMS. She was given aspirin 324 mg and transferred to our facility. While in route to our facility, patient converted from A-fib RVR back into normal sinus mechanism. Upon arrival to our facility, patient underwent evaluation in the emergency department. Vital signs upon arrival show blood pressure 177/78, heart rate 86, respiratory rate 18, temp 98.0 F, and SpO2 of 97% on room air. EKG completed showing normal sinus rhythm at [address] depression in inferior lead II. Chest x-ray completed negative for acu te cardiopulmonary process. CT brain completed showing previous embolization coil anterior midline with mild burden of chronic small vessel ischemic disease but negative for acute intracranial process. Labs completed and reviewed. CBC unremarkable with exception of elevated hematocrit of 46.6. Coagulation profile showing elevated D-dimer of 0.81. BMP showing high anion gap metabolic acidosis with chloride of 110, bicarb of 20, and anion gap of 12 with reports of hyperkalemia with potassium of 5.4 but also reported as a hemolyzed specimen. Blood glucose 139. Liver profile showing hyperbilirubinemia with elevated total bili of 1.6 and AST of 90 otherwise normal findings. Initial troponin 0.018. TSH was 14.200 with free T4 normal at 1.23. Patient was admitted under our services with consultation to cardiology.Initial troponin 0.018 with repeat troponin of 0.066 and 0.055. Lipid profile unremarkable. Echocardiogram completed showing preserved EF of 55 to 60% with mild tricuspid regurgitation. 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 Cardiothoracic surgery evaluated and planning for off-pump myocardial revascularization with left internal mammary artery, endoscopic vein harvest, left radial artery harvest, ligation of the left atrial appendage as well as pulmonary vein isolation by Dr. Conklin on March 16, 2024. Physical exam: Patient seen and fully evaluated at bedside this morning. She reports feeling mildly anxious this morning. She denies having chest pain, palpitations or shortness of breath at this time. She states that she feels a little less anxious today about her upcoming CABG. Vital signs reviewed and stable. General: Nontoxic, no distress and appears stated age. Derm: Skin warm and dry, normal coloration for ethnicity. Head: Atraumatic, normocephalic and symmetric. Eyes: EOM's intact, no lid lag, and anicteric sclera Mouth: no lip lesions, mucus membranes moist Cardiovascular: regular rate and rhythm with normal S1S2, systolic murmur, positive posterior tibial pulses bilaterally, and cap refill < 2 seconds. Lungs: Respirations even, regular, and unlabored on room air. Lungs CTA bilaterally, no rhonchi, no rales, no wheezing, and no accessory muscle usage. Abdominal: soft, nontender to palpation, no guarding, no appreciable organomegal y Ext: ROM intact. No gross muscle atrophy, no edema, no contractures Neuro: Speech clear, face symmetrical and CN II-XII grossly intact with no noted focal neuro deficits Psych: Alert and oriented to person, place, time, and situation. Appropriate and pleasant affect. 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 -Cardiothoracic surgery evaluated and planning for off-pump myocardial revascularization with left internal mammary artery, endoscopic vein harvest, left radial artery harvest, ligation of the left atrial appendage as well as pulmonary vein isolation by Dr. Conklin on March 16, 2024. -Telemetry monitoring -Continue low intensity heparin infusion. Will monitor PTT closely for goal therapeutic range of 49 to 74 seconds. PTT currently therapeutic at 72.4. -Continue aspirin 81 mg daily, amlodipine 5 mg twice daily, atorvastatin 40 mg nightly, Plavix 75 mg daily, isosorbide mononitrate 30 mg daily, losartan 50 mg daily, and metoprolol 75 mg twice daily. -Echocardiogram completed showing preserved EF of 55 to 60% with mild tricuspid regurgitation. 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 -Order placed for migraine cocktail consisting of Toradol 15 mg IVP x 1 dose, Benadryl 25 mg IVP x 1 dose, and Compazine 10 mg IVP x 1 dose. History of left nephrectomy -Continue to follow-up outpatient with nephrology. Currently renal function stable. Will continue to monitor closely. Hypothyroidism -Continue daily medication regimen with levothyroxine 88 mcg daily. Anxiety -Continue Ativan 0.5 mg twice daily. Data and imaging reviewed: Morning labs reviewed. Morning labs unremarkable with exception of mild leukoc ytosis with WBC count of 11.2. PTT therapeutic at 72.4. Vital signs reviewed. Blood pressure was again elevated this morning at 191/78, remainder of vital signs stable with heart rate 71, respiratory rate 18, temp 97.9 F with SpO2 of 98% on room air. Patient was given morning medication and blood pressure improving to 151/69 with heart rate of 57. CODE STATUS: Full code DVT prophylaxis: Heparin infusion Anticipated discharge date: Pending clinical course Home Anticipated discharge place: Home w/ homecare vs inpatient rehab Patient was seen independently by Nurse Practitioner. This document was prepared using [employer] dictation software. Please allow for errors in exhaust worker while rare they do occur. Hubert Garnica NP rendered care for this patient independently, reviewed the findings and plan as documented in the note above and agree with plan. I did not physically speak with or examine the patient on this date. Objective - Vital Signs Vital signs: Vital Signs Temp 97.9 F 03/12/24 08:00 Pulse 71 03/12/24 08:00 Resp 18 03/12/24 08:00 BP 191/78 03/12/24 08:00 Pulse Ox 98 03/12/24 08:00 FiO2 Intake & Output 03/11/24 03/12/24 03/12/24 18:59 06:59 18:59 Intake Total 540 240 Balance 540 240 Weight 68.6 kg Intake: Oral 540 240 Other: Voiding Method Toilet Toilet Toilet # Voids 2 1 - Labs CBC & Chem 7: 03/12/24 06:31 03/11/24 00:30 Labs: Abnormal Lab Results - Last 24 Hours (Table) 03/11/24 03/11/24 03/12/24 Range/Units 11:29 19:15 06:31 WBC 15.1 H (3.8-10.6) k/uL Neutrophils # 11.9 H (1.3-7.7) k/uL Monocytes # 1.4 H (0-1.0) k/uL APTT 45.0 H 72.4 H (22.0-30.0) sec 03/12/24 Range/Units 06:31 WBC 11.2 H (3.8-10.6) k/uL Neutrophils # (1.3-7.7) k/uL Monocytes # (0-1.0) k/uL APTT (22.0-30.0) sec
--- NOTE | 2024-03-12 10:40 | P.PN ---
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 We have been asked to evaluate the patient for acute chest pain and new onset of A- fib with RVR. Patient states that she woke up and had to chest pain and also complained of headache. She states her blood pressure was high at home. She denies any previous history of coronary artery disease. She states she did have about of chest pain many years ago and was determined to be related to anxiety. She presented with a blood pressure of 177/78. Now, blood pressure 149/69, heart rate in the 60s, pulse ox 95% on room air. Patient is been started on heparin drip. She has also been seen by vascular surgery regarding left subclavian artery stenosis. Discussed option of possible cardiac catheterization with the patient. Plan to obtain more information and will reassess tomorrow. -EKG: Sinus rhythm with /nonspecific ST changes, telemetry strips from EMS reviewed revealing atrial fibrillation 135 bpm -Chest x-ray: No acute process -CTA chest: No evidence of pulmonary embolus. COPD with mild emphysema. Lymph nodes in the jessica probably reactive. -CT brain previous embolization coil anterior midline. Mild burden of chronic small vessel ischemic disease. No acute process -Laboratory studies: WBC 6, hemoglobin 16, D-dimer 0.81, sodium 142, potassium 5.4, creatinine 0.8. Troponin 0.018 and 0.066, TSH 14.2. -Home cardiac medications: Amlodipine 5 mg twice daily, Plavix 75 mg daily, Lopressor 75 mg twice daily, Livalo 1 mg at bedtime, also on levothyroxine 88 mcg daily. -Echocardiogram performed 10/26/2020 revealed EF 55 to 60%, mild MR, mild TR. 03/10/24 Patient seen and examined on the Cardiac Stepdown Unit. Patient denies chest pain, no shortness of breath. Patient has been maintained on Heparin IV. She is scheduled for [facility] today with Dr. Daysi Farr. Echocardiogram has been obtained and report is pending. 03/11/24 Patient seen and examined. Yesterday, patient underwent cardiac catheterization with Dr. Vann that found three-vessel coronary artery disease with nondominant right coronary artery and significant disease involving the proximal LAD and circumflex. iFR of the LAD was abnormal and borderline IFR of the circumflex. A referral was placed with CTS with plan for surgical intervention on Thursday, delayed because patient was on Plavix. Patient denies having any chest pain at this time. She has been ambulating in the hallway without symptoms. Echocardiogram revealed EF of 55 to 60%, RVSP 24, no mitral regurgitation, mild tricuspid regurgitation. 03/12/24 Patient seen and examined. Yesterday, patient was resumed on heparin drip. Patient is up getting a shower this morning. She denies having chest pain no shortness of breath, no lightheadedness or dizziness. Blood pressure 191/78 but previous blood pressures have all been well-controlled. Heart rate is in the 60s and 70s, pulse ox 98% on room air. WBC 11.2, hemoglobin 13.3. Physical examination: Gen: This is a 68-year-old female in no acute distress VS: reviewed HEENT: Head is atraumatic, normocephalic. Pupils equal, round. Sclerae is anicteric. NECK: Supple. No JVD. LUNGS: Clear to auscultation. No wheezes or rhonchi. No intercostal retractions. HEART: Regular rate and rhythm. No murmur. ABDOMEN: Soft No tenderness. EXTREMITIES: No pedal edema. No calf tenderness. NEUROLOGICAL: Patient is awake, alert and oriented x3. Assessment: NSTEMI scheduled for CABG on 03/16 New onset paroxysmal atrial fibrillation, currently in sinus rhythm Uncontrolled hypertension Headache, resolved History of brain aneurysm status post coiling Hyperlipidemia Hypothyroidism Asymptomatic left subclavian artery stenosis Plan: Continue current cardiac medications: Norvasc 5 mg twice daily, aspirin 81 mg daily, Lipitor 40 mg at bedtime, losartan 50 mg daily, Lopressor 75 mg twice daily Continue patient on Imdur 30 mg daily Plavix has been discontinued by CTS Continue patient on heparin drip Further recommendations to follow based upon clinical course Nurse practitioner note has been reviewed, I agree with documented findings and plan of care. Patient was seen and examined. Objective - Vital Signs Vital signs: Vital Signs Temp 97.8 F 03/11/24 20:05 Pulse 67 03/12/24 03:29 Resp 16 03/12/24 03:29 BP 136/81 03/12/24 03:29 Pulse Ox 97 03/12/24 03:29 FiO2 Intake & Output 03/11/24 03/12/24 03/12/24 18:59 06:59 18:59 Intake Total 540 240 Balance 540 240 Weight 68.6 kg Intake: Oral 540 240 Other: Voiding Method Toilet Toilet # Voids 2 1 - Labs CBC & Chem 7: 03/12/24 06:31 03/11/24 00:30 Labs: Abnormal Lab Results - Last 24 Hours (Table) 03/11/24 03/11/24 03/12/24 Range/Units 11:29 19:15 06:31 WBC 15.1 H (3.8-10.6) k/uL Neutrophils # 11.9 H (1.3-7.7) k/uL Monocytes # 1.4 H (0-1.0) k/uL APTT 45.0 H 72.4 H (22.0-30.0) sec 03/12/24 Range/Units 06:31 WBC 11.2 H (3.8-10.6) k/uL Neutrophils # (1.3-7.7) k/uL Monocytes # (0-1.0) k/uL APTT (22.0-30.0) sec
[2024-03-13 08:10] LABS: HCT 40.3 % (34.0-46.0); HGB 13.8 gm/dL (11.4-16.0); MCH 29.8 pg (25.0-35.0); MCHC 34.2 g/dL (31.0-37.0); MCV 87.3 fL (80.0-100.0); Mean Platelet Volume 7.3; Platelet Count 269 k/uL (150-450); RBC 4.62 m/uL (3.80-5.40); RDW 13.3 % (11.5-15.5); WBC 8.7 k/uL (3.8-10.6)
[2024-03-13 08:29] LABS: ALT 30 U/L (4-34); AST 35 U/L (14-36); African American GFR (CKD) 74 (>60 ml/min/1.73 sqM); Alkaline Phosphatase 97 U/L (38-126); Anion Gap 8 mmol/L; Blood Urea Nitrogen 26 mg/dL (7-17); Calcium 8.9 mg/dL (8.4-10.2); Carbon Dioxide 22 mmol/L (22-30); Chloride 109 mmol/L (98-107); Glucose 115 mg/dL (74-99); Magnesium 2.1 mg/dL (1.6-2.3); Non-African American GFR(CKD) 65 (>60 ml/min/1.73 sqM); Potassium 4.3 mmol/L (3.5-5.1); Sodium 139 mmol/L (137-145); Total Bilirubin 0.5 mg/dL (0.2-1.3); Total Protein 6.6 g/dL (6.3-8.2)
[2024-03-13] MEDS: LOSARTAN 50 MG TAB PO STA (09:34)
[2024-03-13] MEDS: SODIUM CHLORIDE 0.9% 1,000 ML IV SCH (09:35)
--- NOTE | 2024-03-13 12:12 | P.PN ---
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 We have been asked to evaluate the patient for acute chest pain and new onset of A- fib with RVR. Patient states that she woke up and had to chest pain and also complained of headache. She states her blood pressure was high at home. She denies any previous history of coronary artery disease. She states she did have about of chest pain many years ago and was determined to be related to anxiety. She presented with a blood pressure of 177/78. Now, blood pressure 149/69, heart rate in the 60s, pulse ox 95% on room air. Patient is been started on heparin drip. She has also been seen by vascular surgery regarding left subclavian artery stenosis. Discussed option of possible cardiac catheterization with the patient. Plan to obtain more information and will reassess tomorrow. -EKG: Sinus rhythm with /nonspecific ST changes, telemetry strips from EMS reviewed revealing atrial fibrillation 135 bpm -Chest x-ray: No acute process -CTA chest: No evidence of pulmonary embolus. COPD with mild emphysema. Lymph nodes in the jessica probably reactive. -CT brain previous embolization coil anterior midline. Mild burden of chronic small vessel ischemic disease. No acute process -Laboratory studies: WBC 6, hemoglobin 16, D-dimer 0.81, sodium 142, potassium 5.4, creatinine 0.8. Troponin 0.018 and 0.066, TSH 14.2. -Home cardiac medications: Amlodipine 5 mg twice daily, Plavix 75 mg daily, Lopressor 75 mg twice daily, Livalo 1 mg at bedtime, also on levothyroxine 88 mcg daily. -Echocardiogram performed 10/26/2020 revealed EF 55 to 60%, mild MR, mild TR. 03/10/24 Patient seen and examined on the Cardiac Stepdown Unit. Patient denies chest pain, no shortness of breath. Patient has been maintained on Heparin IV. She is scheduled for [facility] today with Dr. Daysi Farr. Echocardiogram has been obtained and report is pending. 03/11/24 Patient seen and examined. Yesterday, patient underwent cardiac catheterization with Dr. Vann that found three-vessel coronary artery disease with nondominant right coronary artery and significant disease involving the proximal LAD and circumflex. iFR of the LAD was abnormal and borderline IFR of the circumflex. A referral was placed with CTS with plan for surgical intervention on Thursday, delayed because patient was on Plavix. Patient denies having any chest pain at this time. She has been ambulating in the hallway without symptoms. Echocardiogram revealed EF of 55 to 60%, RVSP 24, no mitral regurgitation, mild tricuspid regurgitation. 03/12/24 Patient seen and examined. Yesterday, patient was resumed on heparin drip. Patient is up getting a shower this morning. She denies having chest pain no shortness of breath, no lightheadedness or dizziness. Blood pressure 191/78 but previous blood pressures have all been well-controlled. Heart rate is in the 60s and 70s, pulse ox 98% on room air. WBC 11.2, hemoglobin 13.3. 03/13/24 Patient seen and examined. Blood pressure 166/74, heart rate 68, pulse ox 98% on room air. Repeat blood work reveals WBC 8.7, hemoglobin 13.8, potassium 4.3, BUN 26 creatinine 0.91. No complaints of chest pain, shortness of breath, lightheadedness or dizziness. Physical examination: Gen: This is a 68-year-old female in no acute distress VS: reviewed HEENT: Head is atraumatic, normocephalic. Pupils equal, round. Sclerae is anicteric. NECK: Supple. No JVD. LUNGS: Clear to auscultation. No wheezes or rhonchi. No intercostal retract ions. HEART: Regular rate and rhythm. No murmur. ABDOMEN: Soft No tenderness. EXTREMITIES: No pedal edema. No calf tenderness. NEUROLOGICAL: Patient is awake, alert and oriented x3. Assessment: NSTEMI scheduled for CABG on 03/16 New onset paroxysmal atrial fibrillation, currently in sinus rhythm Uncontrolled hypertension Headache, resolved History of brain aneurysm status post coiling Hyperlipidemia Hypothyroidism Asymptomatic left subclavian artery stenosis Plan: Continue current cardiac medications: Norvasc 5 mg twice daily, aspirin 81 mg daily, Lipitor 40 mg at bedtime, Lopressor 75 mg twice daily Continue patient on Imdur 30 mg daily Increase losartan to 100 mg daily Plavix has been discontinued by CTS Continue patient on heparin drip Further recommendations to follow based upon clinical course Nurse practitioner note has been reviewed, I agree with documented findings and plan of care. Patient was seen and examined. Objective - Vital Signs Vital signs: Vital Signs Temp 98.3 F 03/12/24 20:00 Pulse 68 03/13/24 03:55 Resp 16 03/13/24 03:55 BP 166/74 03/13/24 03:55 Pulse Ox 98 03/13/24 03:55 FiO2 Intake & Output 03/12/24 03/13/24 03/13/24 18:59 06:59 18:59 Intake Total 240 250 Output Total 1 Balance 240 249 Weight 68.6 kg Intake: Intake, IV Titration 250 Amount Heparin Sod,Pork in 0.45% 250 NaCl 25,000 unit In 0.45 % NaCl 1 250ml.bag @ 12 UNITS/KG/HR 8.136 mls/hr IV .Q24H ALISIA Rx#: [id number] Oral 240 Output: Urine/Stool Mix 1 Other: Voiding Method Toilet Toilet # Voids 1 2 - Labs CBC & Chem 7: 03/13/24 07:40 03/13/24 07:40 Labs: Abnormal Lab Results - Last 24 Hours (Table) 03/13/24 03/13/24 Range/Units 07:40 07:40 APTT 75.2 H (22.0-30.0) sec Chloride 109 H (98-107) mmol/L BUN 26 H (7-17) mg/dL Glucose 115 H (74-99) mg/dL
--- NOTE | 2024-03-13 16:07 | P.PN ---
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 She presented to the emergency department on 03/09/24 with a chief complaint of chest pain and palpitations. She reports awakening to a severe pressure to midsternal chest accompanied by palpitations like her heart was beating very fast. She denies history of this occurring in the past and became very concerned so she called EMS. Per documentation in chart patient was found to be in atrial fibrillation with RVR by EMS. She was given aspirin 324 mg and transferred to our facility. While in route to our facility, patient converted from A-fib RVR back into normal sinus mechanism. Upon arrival to our facility, patient underwent evaluation in the emergency department. Vital signs upon arrival show blood pressure 177/78, heart rate 86, respiratory rate 18, temp 98.0 F, and SpO2 of 97% on room air. EKG completed showing normal sinus rhythm at [address] depression in inferior lead II. Chest x-ray completed negative for acu te cardiopulmonary process. CT brain completed showing previous embolization coil anterior midline with mild burden of chronic small vessel ischemic disease but negative for acute intracranial process. Labs completed and reviewed. CBC unremarkable with exception of elevated hematocrit of 46.6. Coagulation profile showing elevated D-dimer of 0.81. BMP showing high anion gap metabolic acidosis with chloride of 110, bicarb of 20, and anion gap of 12 with reports of hyperkalemia with potassium of 5.4 but also reported as a hemolyzed specimen. Blood glucose 139. Liver profile showing hyperbilirubinemia with elevated total bili of 1.6 and AST of 90 otherwise normal findings. Initial troponin 0.018. TSH was 14.200 with free T4 normal at 1.23. Patient was admitted under our services with consultation to cardiology.Initial troponin 0.018 with repeat troponin of 0.066 and 0.055. Lipid profile unremarkable. Echocardiogram completed showing preserved EF of 55 to 60% with mild tricuspid regurgitation. Cardiology evaluated and took patient for cardiac catheterization which revealed multivessel coronary artery disease, etiquette coach recommending evaluation by cardiothoracic surgery for CABG. Cardiothoracic surgery evaluated and planning for off-pump myocardial revascularization with left internal mammary artery, endoscopic vein harvest, left radial artery harvest, ligation of the left atrial appendage as well as pulmonary vein isolation by Dr. Conklin on March 16, 2024. Physical exam: Patient seen and fully evaluated at bedside, initially went to see patient this morning but patient was getting into the shower and I spoke with her and told her I would come back and see her in a bit. Upon returning to the room patient was sleeping. She was easily awoken via verbal stimuli but reports feeling very tired today and that she keeps dozing off. She denies having any other complaints including headache, lightheadedness, dizziness, chest pain, palpitations, or experiencing any numbness/tingling/weakness in her extremities. She denies any chills or diaphoresis and reports she has been walking the unit simply cannot stay awake. Vital signs reviewed and stable. General: Nontoxic, no distress and appears stated age. Derm: Skin warm and dry, normal coloration for ethnicity. Head: Atraumatic, normocephalic and symmetric. Eyes: EOM's intact, no lid lag, and anicteric sclera Mouth: no lip lesions, mucus membranes moist Cardiovascular: regular rate and rhythm with normal S1S2, systolic murmur, positive posterior tibial pulses bilaterally, and cap refill < 2 seconds. Lungs: Respirations even, regular, and unlabored on room air. Lungs CTA bilaterally, no rhonchi, no rales, no wheezing, and no accessory muscle usage. Abdominal: soft, nontender to palpation, no guarding, no appreciable organomegaly Ext: ROM intact. No gross muscle atrophy, no edema, no contractures Neuro: Speech clear, face symmetrical and CN II-XII grossly intact with no noted focal neuro deficits Psych: Alert and oriented to person, place, time, and situation. Appropriate and pleasant affect. Assessment and Plan of Care: Chest pain and palpitations, rule out acute coronary event Atrial fibrillation with RVR, per EMS report Elevated troponin Hypertension Hyperlipidemia -Cardiology following and took patient for cardiac catheterization which revealed multivessel coronary artery disease, etiquette coach recommending evaluation by cardiothoracic surgery for CABG. -Cardiothoracic surgery evaluated and planning for off-pump myocardial revascularization with left internal mammary artery, endoscopic vein harvest, left radial artery harvest, ligation of the left atrial appendage as well as pulmonary vein isolation by Dr. Conklin on March 16, 2024. -Telemetry monitoring -Continue low intensity heparin infusion. Will monitor PTT closely for goal the rapeutic range of 49 to 74 seconds. PTT slightly supratherapeutic at 75.2. -Continue aspirin 81 mg daily, amlodipine 5 mg twice daily, atorvastatin 40 mg nightly, Plavix 75 mg daily, isosorbide mononitrate 30 mg daily, losartan 50 mg daily, and metoprolol 75 mg twice daily. -Echocardiogram completed showing preserved EF of 55 to 60% with mild tricuspid regurgitation. History of left nephrectomy -Continue to follow-up outpatient with nephrology. Currently renal function stable. Will continue to monitor closely. Mild prerenal azotemia -Placed patient on very gentle IV fluid hydration with 0.9% normal saline at 50 cc/h to ensure adequate hydration and optimize renal function prior to CABG. Hypothyroidism -Continue daily medication regimen with levothyroxine 88 mcg daily. Anxiety -Continue Ativan 0.5 mg twice daily. Intractable headache, resolved. 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 Data and imaging reviewed: Morning labs reviewed. CBC unremarkable. BMP showing mild hyperchloremia with chloride of 109 and mild prerenal azotemia with BUN of 26. Blood glucose 115. Magnesium 2.1. Liver profile unremarkable. PTT supratherapeutic at 75.2. Vital signs reviewed. Blood pressure 150/63, heart rate 64, respiratory rate 17, temp 98.0 F, and SpO2 of 94% on room air. CODE STATUS: Full code DVT prophylaxis: Heparin infusion Anticipated discharge date: Pending clinical course Anticipated discharge place: Home w/ homecare vs inpatient rehab Patient was seen independently by Nurse Practitioner. This document was prepared using [employer] dictation software. Please allow for errors in paid search specialist while rare they do occur. Hubert Garnica NP rendered care for this patient independently, reviewed the findings and plan as documented in the note above and agree with plan. I did not physically speak with or examine the patient on this date. Objective - Vital Signs Vital signs: Vital Signs Temp 98.3 F 03/12/24 20:00 Pulse 68 03/13/24 03:55 Resp 16 03/13/24 03:55 BP 166/74 03/13/24 03:55 Pulse Ox 98 03/13/24 03:55 FiO2 Intake & Output 03/12/24 03/13/24 03/13/24 18:59 06:59 18:59 Intake Total 240 250 Output Total 1 Balance 240 249 Weight 68.6 kg Intake: Intake, IV Titration 250 Amount Heparin Sod,Pork in 0.45% 250 NaCl 25,000 unit In 0.45 % NaCl 1 250ml.bag @ 12 UNITS/KG/HR 8.136 mls/hr IV .Q24H [facility] Rx#: [id number] Oral 240 Output: Urine/Stool Mix 1 Other: Voiding Method Toilet Toilet # Voids 1 2 - Labs CBC & Chem 7: 03/13/24 07:40 03/13/24 07:40 Labs: Abnormal Lab Results - Last 24 Hours (Table) 03/13/24 03/13/24 Range/Units 07:40 07:40 APTT 75.2 H (22.0-30.0) sec Chloride 109 H (98-107) mmol/L BUN 26 H (7-17) mg/dL Glucose 115 H (74-99) mg/dL
[2024-03-14] MEDS: LOSARTAN 50 MG TAB PO SCH (07:47)
[2024-03-14 07:57] LABS: HCT 43.2 % (34.0-46.0); HGB 14.1 gm/dL (11.4-16.0); MCH 29.2 pg (25.0-35.0); MCHC 32.7 g/dL (31.0-37.0); MCV 89.5 fL (80.0-100.0); Mean Platelet Volume 7.3; Platelet Count 251 k/uL (150-450); RBC 4.82 m/uL (3.80-5.40); RDW 12.9 % (11.5-15.5); WBC 8.4 k/uL (3.8-10.6)
--- NOTE | 2024-03-14 08:07 | P.PN ---
Subjective Progress Note Date: 03/14/24 Principal diagnosis: Coronary artery disease, non-STEMI this admission, new onset atrial fibrillation. History of brain aneurysm with coiling in 2019 and stent in 2019, hypertension, hyperlipidemia, hypothyroid, asymptomatic left subclavian stenosis, left sided nephrectomy, Mnire's disease, previous tobacco dependence, anxiety, family history of myocardial infarction in both her mother and her father The patient was seen and examined this morning sitting up in bed in no acute distress eating breakfast. She denies any current chest pain or shortness of breath. She has been ambulatory around the hallway without incident. Our plan is for open heart surgery March [address] Conklin. Patient is aware and agreeable. All questions answered. No other new concerns at this time. Objective - Vital Signs Vital signs: Vital Signs Temp 98.2 F 03/13/24 20:00 Pulse 59 L 03/14/24 04:59 Resp 16 03/14/24 04:59 BP 145/72 03/14/24 04:59 Pulse Ox 96 03/14/24 04:59 FiO2 Intake & Output 03/13/24 03/14/24 03/14/24 18:59 06:59 18:59 Intake Total 250 Balance 250 Weight 67.9 kg Intake: Intake, IV Titration 250 Amount Heparin Sod,Pork in 0.45% 250 NaCl 25,000 unit In 0.45 % NaCl 1 250ml.bag @ 12 UNITS/KG/HR 8.136 mls/hr IV .Q24H [facility] Rx#: [id number] Other: Voiding Method Toilet Toilet # Voids 2 - Exam CONSTITUTIONAL: Appears comfortable, cooperative, no acute distress RESPIRATORY: Lungs sounds clear bilaterally. Respirations even, nonlabored. Currently on room air with oxygen saturation 96%. Able to achieve 2000 mL on incentive spirometry. Strong cough. CARDIOVASCULAR: S1, S2 present. Regular rate and rhythm, sinus rhythm on telemetry. Palpable peripheral pulses bilaterally. No edema present. No calf pain or tenderness noted GASTROINTESTINAL: Abdomen soft, nontender, nondistended. Active bowel sounds present 4 quadrants. Tolerating diet GENITOURINARY: Continues to void INTEGUMENTARY: Skin is warm and dry NEUROLOGIC: Cranial nerves II through XII intact MUSKULOSKELETAL: Able to move all extremities, strength equal bilaterally, gait normal PSYCHIATRIC: Alert and oriented to person place and time, appropriate affect, intact judgment and insight - Allied health notes Allied health notes reviewed: nursing - Labs CBC & Chem 7: 03/14/24 06:33 03/13/24 07:40 Labs: Abnormal Lab Results - Last 24 Hours (Table) 03/13/24 03/13/24 Range/Units 07:40 07:40 APTT 75.2 H (22.0-30.0) sec Chloride 109 H (98-107) mmol/L BUN 26 H (7-17) mg/dL Glucose 115 H (74-99) mg/dL Assessment and Plan Assessment: Coronary artery disease, non-STEMI this admission New onset atrial fibrillation, brief episode, currently sinus Chest pain, secondary to above History of brain aneurysm with coiling in 2019 and stent in 2019 Hypertension Hyperlipidemia, cholesterol 181, LDL 99 Hypothyroid, TSH 14.2, T4 1.23 Asymptomatic left subclavian stenosis Left sided nephrectomy Mnire's disease Previous tobacco dependence, preoperative FEV1 99% of predicted Anxiety Family history of myocardial infarction in both her mother and her father Plan: Continue to maximize medical therapy with aspirin, statin, beta-kimo. Plavix discontinued, continue to hold Increase activity as tolerated Continue to reinforce preoperative teaching Will consult pulmonology for clearance Our plan is for off-pump myocardial revascularization with left internal mammary artery, endoscopic vein harvest, left radial artery harvest, ligation of the left atrial appendage as well as pulmonary vein isolation by Dr. Conklin March 16, 2024 Medical management of other comorbidities per internal medicine, cardiology.
[2024-03-14 08:21] LABS: ALT 36 U/L (4-34); AST 33 U/L (14-36); African American GFR (CKD) 73 (>60 ml/min/1.73 sqM); Albumin 4.1 g/dL (3.5-5.0); Alkaline Phosphatase 108 U/L (38-126); Anion Gap 9 mmol/L; Blood Urea Nitrogen 22 mg/dL (7-17); Calcium 9.1 mg/dL (8.4-10.2); Carbon Dioxide 21 mmol/L (22-30); Chloride 110 mmol/L (98-107); Glucose 93 mg/dL (74-99); Magnesium 2.2 mg/dL (1.6-2.3); Non-African American GFR(CKD) 63 (>60 ml/min/1.73 sqM); Potassium 4.3 mmol/L (3.5-5.1); Sodium 140 mmol/L (137-145); Total Bilirubin 0.5 mg/dL (0.2-1.3); Total Protein 6.5 g/dL (6.3-8.2)
[2024-03-14] MEDS: MUPIROCIN 2% OINT 22 GM TUBE NASAL SCH (09:34)
--- NOTE | 2024-03-14 12:28 | P.PN ---
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 She presented to the emergency department on 03/09/24 with a chief complaint of chest pain and palpitations. She reports awakening to a severe pressure to midsternal chest accompanied by palpitations like her heart was beating very fast. She denies history of this occurring in the past and became very concerned so she called EMS. Per documentation in chart patient was found to be in atrial fibrillation with RVR by EMS. She was given aspirin 324 mg and transferred to our facility. While in route to our facility, patient converted from A-fib RVR back into normal sinus mechanism. Upon arrival to our facility, patient underwent evaluation in the emergency department. Vital signs upon arrival show blood pressure 177/78, heart rate 86, respiratory rate 18, temp 98.0 F, and SpO2 of 97% on room air. EKG completed showing normal sinus rhythm at [address] depression in inferior lead II. Chest x-ray completed negative for acu te cardiopulmonary process. CT brain completed showing previous embolization coil anterior midline with mild burden of chronic small vessel ischemic disease but negative for acute intracranial process. Labs completed and reviewed. CBC unremarkable with exception of elevated hematocrit of 46.6. Coagulation profile showing elevated D-dimer of 0.81. BMP showing high anion gap metabolic acidosis with chloride of 110, bicarb of 20, and anion gap of 12 with reports of hyperkalemia with potassium of 5.4 but also reported as a hemolyzed specimen. Blood glucose 139. Liver profile showing hyperbilirubinemia with elevated total bili of 1.6 and AST of 90 otherwise normal findings. Initial troponin 0.018. TSH was 14.200 with free T4 normal at 1.23. Patient was admitted under our services with consultation to cardiology.Initial troponin 0.018 with repeat troponin of 0.066 and 0.055. Lipid profile unremarkable. Echocardiogram completed showing preserved EF of 55 to 60% with mild tricuspid regurgitation. Cardiology evaluated and took patient for cardiac catheterization which revealed multivessel coronary artery disease, stunt performer recommending evaluation by cardiothoracic surgery for CABG. Cardiothoracic surgery evaluated and planning for off-pump myocardial revascularization with left internal mammary artery, endoscopic vein harvest, left radial artery harvest, ligation of the left atrial appendage as well as pulmonary vein isolation by Dr. Conklin on March 16, 2024. Physical exam: Patient seen and fully evaluated at bedside, she was sitting up in recliner and reports feeling better today. Patient more awake and states she is not as sleepy. She reports just feeling ready to get this over with. She denies having any complaints including dizziness, lightheadedness, chest pain, palpitations, or any other complaints at this time. She remains on heparin infusion. Vital signs reviewed and stable. General: Nontoxic, no distress and appears stated age. Derm: Skin warm and dry, normal coloration for ethnicity. Head: Atraumatic, normocephalic and symmetric. Eyes: EOM's intact, no lid lag, and anicteric sclera Mouth: no lip lesions, mucus membranes moist Cardiovascular: regular rate and rhythm with normal S1S2, systolic murmur, positive posterior tibial pulses bilaterally, and cap refill < 2 seconds. Lungs: Respirations even, regular, and unlabored on room air. Lungs CTA bilaterally, no rhonchi, no rales, no wheezing, and no accessory muscle usage. Abdominal: soft, nontender to palpation, no guarding, no appreciable organomegaly Ext: ROM intact. No gross muscle atrophy, no edema, no contractures Neuro: Speech clear, face symmetrical and CN II-XII grossly intact with no noted focal neuro deficits Psych: Alert and oriented to person, place, time, and situation. Appropriate and pleasant affect. Assessment and Plan of Care: Chest pain and palpitations, rule out acute coronary event Atrial fibrillation with RVR, per EMS report Elevated troponin Hypertension Hyperlipidemia -Cardiology following and took patient for cardiac catheterization which revealed multivessel coronary artery disease, stunt performer recommending evaluation by cardiothoracic surgery for CABG. -Cardiothoracic surgery evaluated and planning for off-pump myocardial revascularization with left internal mammary artery, endoscopic vein harvest, le ft radial artery harvest, ligation of the left atrial appendage as well as pulmonary vein isolation by Dr. Conklin on March 16, 2024. -Telemetry monitoring -Continue low intensity heparin infusion. Will monitor PTT closely for goal therapeutic range of 49 to 74 seconds. PTT therapeutic at 67.7 seconds.. -Continue aspirin 81 mg daily, amlodipine 5 mg twice daily, atorvastatin 40 mg nightly, Plavix 75 mg daily, isosorbide mononitrate 30 mg daily, losartan 50 mg daily, and metoprolol 75 mg twice daily. -Echocardiogram completed showing preserved EF of 55 to 60% with mild tricuspid regurgitation. History of left nephrectomy -Continue to follow-up outpatient with nephrology. Currently renal function stable. Will continue to monitor closely. Mild prerenal azotemia -Placed patient on very gentle IV fluid hydration with 0.9% normal saline at 50 cc/h to ensure adequate hydration and optimize renal function prior to CABG. Hypothyroidism -Continue daily medication regimen with levothyroxine 88 mcg daily. Anxiety -Continue Ativan 0.5 mg twice daily. Intractable headache, resolved. 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 Data and imaging reviewed: Morning labs reviewed. CBC unremarkable. BMP showing mild non-anion gap metabolic acidosis with chloride of 110, bicarb of 21, and anion gap of 9 with mild prerenal azotemia with BUN of 22. Blood glucose 93. Magnesium 2.2. Liver profile showing slightly elevated ALT of 36 otherwise normal findings. PTT therapeutic at 67.7. Vital signs reviewed. Blood pressure 156/66, heart rate 63, respiratory rate 18, temp 98.0 F, and SpO2 of 96% on room air.. CODE STATUS: Full code DVT prophylaxis: Heparin infusion Anticipated discharge date: Pending clinical course Anticipated discharge place: Home w/ homecare vs inpatient rehab Patient was seen independently by Nurse Practitioner. This document was prepared using [employer] dictation software. Please allow for errors in supervisor respiratory while rare they do occur. Hubert Garnica NP rendered care for this patient independently, reviewed the findings and plan as documented in the note above and agree with plan. I did not physically speak with or examine the patient on this date. Objective - Vital Signs Vital signs: Vital Signs Temp 98.2 F 03/13/24 20:00 Pulse 59 L 03/14/24 04:59 Resp 16 03/14/24 04:59 BP 145/72 03/14/24 04:59 Pulse Ox 96 03/14/24 04:59 FiO2 Intake & Output 03/13/24 03/14/24 03/14/24 18:59 06:59 18:59 Intake Total 250 Balance 250 Weight 67.9 kg Intake: Intake, IV Titration 250 Amount Heparin Sod,Pork in 0.45% 250 NaCl 25,000 unit In 0.45 % NaCl 1 250ml.bag @ 12 UNITS/KG/HR 8.136 mls/hr IV .Q24H [facility] Rx#: [id number] Other: Voiding Method Toilet Toilet # Voids 2 - Labs CBC & Chem 7: 03/14/24 06:33 03/14/24 06:33 Labs: Abnormal Lab Results - Last 24 Hours (Table) 03/13/24 03/13/24 Range/Units 07:40 07:40 APTT 75.2 H (22.0-30.0) sec Chloride 109 H (98-107) mmol/L BUN 26 H (7-17) mg/dL Glucose 115 H (74-99) mg/dL
--- NOTE | 2024-03-14 18:52 | P.PN ---
Subjective Patient is resting comfortably in bed Heart sounds are normal Breath sounds are clear Her blood pressure is elevated 167/72 mmHg Impression Multivessel coronary arteries Awaiting coronary artery bypass grafting on Thursday Elevated blood pressure readings Plan Maximize antihypertensive therapy. For blood pressures not controlled then we can switch to valsartan in place of losartan Objective - Vital Signs Vital signs: Vital Signs Temp 97.3 F L 03/14/24 16:00 Pulse 68 03/14/24 16:00 Resp 16 03/14/24 16:00 BP 161/71 03/14/24 16:00 Pulse Ox 97 03/14/24 16:00 FiO2 Intake & Output 03/13/24 03/14/24 03/14/24 18:59 06:59 18:59 Intake Total 250 776 Balance 250 776 Weight 67.9 kg Intake: Intake, IV Titration 250 Amount Heparin Sod,Pork in 0.45% 250 NaCl 25,000 unit In 0.45 % NaCl 1 250ml.bag @ 12 UNITS/KG/HR 8.136 mls/hr IV .Q24H [facility] Rx#: [id number] Oral 776 Other: Voiding Method Toilet Toilet Toilet # Voids 2 2 - Labs CBC & Chem 7: 03/14/24 06:33 03/14/24 06:33 Labs: Abnormal Lab Results - Last 24 Hours (Table) 03/14/24 03/14/24 Range/Units 06:33 06:33 APTT 67.7 H (22.0-30.0) sec Chloride 110 H (98-107) mmol/L Carbon Dioxide 21 L (22-30) mmol/L BUN 22 H (7-17) mg/dL ALT 36 H (4-34) U/L
--- NOTE | 2024-03-15 06:32 | P.CNPUL ---
History of Present Illness Consult date: 03/15/24 Requesting physician: Zarina Agarwal Reason for consult: other (Preoperative CABG) Chief complaint: Chest pain History of present illness: Patient is a 68-year-old female with past medical history significant for brain aneurysm with previous coiling and stent, hypertension, hyperlipidemia, left subclavian stenosis, previous left-sided nephrectomy, hypothyroidism, Mnire's disease, generalized anxiety disorder, and former tobacco dependence. Patient denies any pre-existing lung disease. She does have significant smoking history, smoked 1 pack/day for over 30 years. Patient's primary care provider is marixa Orta out of Dr. Carranza's office. Patient presented to the emergency department back on March 09 with chest pain. Apparently, earlier that morning she was awoken with sudden onset substernal chest pain/tightness. She initially thought this was a anxiety attack as she does have a history of anxiety. No nausea, diaphoresis, shortness of breath. 30 minutes later, the feeling did not subside's, so she did call EMS. Patient did reportedly have a transient episode of A-fib RVR in route to the hospital. Patient was admitted with a diagnosis of non-ST elevation AR. Heart catheterization performed 03/10/2024 demonstrating severe three-vessel coronary artery disease with si gnificant disease involvment of the proximal LAD, demonstrating 60 to 70% , left circumflex artery with 70% stenosis. and 90% stenosis of a nondominant RCA. Follow-up echocardiogram preserved left ventricular ejection fraction of 55 to 60%. No significant valvular abnormalities reported. Cardiothoracic surgery was consulted, patient is scheduled for surgical revascularization tomorrow morning. We were consulted for preoperative pulmonary clearance ventilator management following the procedure. As stated above, patient has no diagnosed history of pre-existing lung disease. She does have significant smoking history over [id number]. Patient did have bedside spirometry which showed an FEV1 2.35 L or 99% of predicted. Chest CTA done on arrival did not show any evidence of pulmonary emboli. There was evidence of mild emphysematous changes. Biapical scarring. Few borderline mildly enlarged lymph nodes in the hilum measuring 1.2 cm. Otherwise no acute findings. Most recent CBC done yesterday with a WBC count 8.4, hemoglobin 14.1, hematocrit 43.2, platelets 251. aPTT currently therapeutic at 67.7. BMP from yesterday: Sodium 140, potassium 4.3, chloride 110, serum bicarb 21, BUN 22, creatinine 0.93, glucose 93. Patient is currently walking the halls on room air. She has no respiratory distress. No current chest pain. Does have normal saline infusing at 50 mL/h. Also, heparin is infusion per protocol. Surgery is scheduled for tomorrow morning. Review of Systems Constitutional: Denies chills, Denies fever, Denies poor appetite, Denies weight gain, Denies weight loss Ears, nose, mouth and throat: Denies headache, Denies nasal congestion, Denies nasal discharge, Denies post-nasal drip, Denies sinus pain, Denies sinus pressure, Denies sore throat Cardiovascular: Reports chest pain, Denies dyspnea on exertion, Denies irregular heart beat, Denies leg edema, Denies orthopnea, Denies palpitations, Denies paroxysmal nocturnal dyspnea, Denies syncope Respiratory: Denies congestion, Denies cough, Denies cough with sputum, Denies dyspnea, Denies home oxygen, Denies wheezing Gastrointestinal: Denies abdominal pain, Denies change in bowel habits, Denies constipation, Denies diarrhea, Denies nausea, Denies vomiting Genitourinary: Denies dysuria Musculoskeletal: Denies leg numbness/tingling Integumentary: Denies rash Neurological: Denies seizures, Denies syncope Psychiatric: Reports anxiety, Reports anxiety attacks, Denies depression Past Medical History Past Medical History: Hearing Disorder / Deafness, Hyperlipidemia, Hypertension, Respiratory Disorder, Thyroid Disorder, Vascular Disorder Additional Past Medical History / Comment(s): 03/2019 brain aneurysm with rupture-went to [facility] and had brain coil and recently had brain stent, meniere's disese/vertigo and had surgery behind R ear, bilateral CIRCLE/wears aides, L ureteral hernia surgically repaired/then scarred causing blockage and had L nephrectomy, murmur, bronchitis, hypothyroid, sinus problems/allergies and recent sinus infection, bronchitis. History of Any Multi-Drug Resistant Organisms: None Reported Past Surgical History: Hysterectomy, Orthopedic Surgery Additional Past Surgical History / Comment(s): Left nephrectomy, brain aneurysm with coil then stent in brain, R behind ear surgery for Meniere's, colonoscopy. Past Anesthesia/Blood Transfusion Reactions: No Reported Reaction Additional Past Anesthesia/Blood Transfusion Reaction / Comment(s): Pt has received blood with misscarriage and when had hysterectomy without reaction. Past Psychological History: Anxiety, Depression, Panic Disorder Smoking Status: Former smoker - Past Family History Mother Family Medical History: Hypertension Additional Family Medical History / Comment(s): Mother is . Father Family Medical History: Diabetes Mellitus Additional Family Medical History / Comment(s): Father is Medications and Allergies Home Medications Medication Instructions Recorded Confirmed Type Calcium Carbonate/Vitamin D3 2 tab PO DAILY 09/21/14 03/09/24 History [Calcium 600-Vit D3 400 Tablet] cycloSPORINE [Restasis] 1 drop BOTH EYES BID 09/21/14 03/09/24 History Vitamin E (Dl,Tocopheryl Acet) 400 unit PO DAILY 04/18/19 03/09/24 History [Vitamin E (400 Iu = 180 mg)] Clopidogrel Bisulfate [Plavix] 75 mg PO DAILY 11/24/19 03/09/24 History Cyanocobalamin (Vitamin B-12) 1,000 mcg PO DAILY 11/24/19 03/09/24 History [Vitamin B-12] LORazepam [Ativan] 0.5 mg PO BID 11/24/19 03/09/24 History Vitamin B Complex/Folic Acid 1 tab PO DAILY 11/24/19 03/09/24 History [B-Complex Tablet] Levothyroxine Sodium [Synthroid] 88 mcg PO DAILY 03/09/24 03/09/24 History Metoprolol Tartrate [Lopressor] 75 mg PO BID 03/09/24 03/09/24 History Multivit-Min/Iron/Folic/Lutein 1 tab PO DAILY 03/09/24 03/09/24 History [Centrum Silver Women Tablet] Pitavastatin Calcium [Livalo] 1 mg PO HS 03/09/24 03/09/24 History amLODIPine [Norvasc] 5 mg PO BID 03/09/24 03/09/24 History Allergies Allergy/AdvReac Type Severity Reaction Status Date / Time clarithromycin [From Biaxin] Allergy Unknown Verified 03/09/24 08:27 clonidine Allergy Swelling Verified 03/09/24 08:27 Iodinated Contrast Media Allergy Unknown Verified 03/09/24 08:27 [Iodinated Contrast Media - IV Dye] levofloxacin [From Levaquin] Allergy Unknown Verified 03/09/24 08:27 methylprednisolone Allergy Rash/Hives Verified 03/09/24 08:27 [From Medrol] moxifloxacin HCl Allergy Unknown Verified 03/09/24 08:27 [From Avelox] scopolamine Allergy Rash/Hives Verified 03/09/24 08:27 [From Transderm-Scop] Sulfa (Sulfonamide Allergy Unknown Verified 03/09/24 08:27 Antibiotics) ciprofloxacin [From Cipro] AdvReac Rash/Hives Verified 03/09/24 08:27 clindamycin AdvReac HEARTBURN Verified 03/09/24 08:27 doxycycline AdvReac Headache & Verified 03/09/24 08:27 Vomitting nitrofurantoin AdvReac Headache & Verified 03/09/24 08:27 [From Macrobid] Vomitting nitrofurantoin AdvReac Headache & Verified 03/09/24 08:27 macrocrystalline Vomitting [From Macrobid] Physical Exam Vitals: Vital Signs Temp Pulse Resp BP Pulse Ox 03/15/24 04:00 98.1 F 83 15 133/74 97 03/14/24 23:21 60 16 154/70 98 03/14/24 20:00 97.9 F 66 16 175/77 98 03/14/24 16:00 97.3 F L 68 16 161/71 97 03/14/24 11:22 59 L 16 167/72 98 03/14/24 08:00 98 F 63 18 156/66 96 Intake and Output 03/14/24 03/14/24 03/15/24 14:59 22:59 06:59 Intake Total 658 118 Output Total 200 Balance 658 118 -200 Intake: Oral 658 118 Output: Urine 200 Other: Voiding Method Toilet Toilet Toilet # Voids 2 1 Weight 67.8 kg GENERAL EXAM: Alert, 68-year-old white male, well-appearing walking halls, comfortable in no apparent distress. HEAD: Normocephalic and atraumatic EYES: Normal reaction of pupils, equal size. NOSE: Clear with pink turbinates. THROAT: No erythema or exudates. NECK: No masses, no JVD. CHEST: No chest wall deformity. LUNGS: Equal air entry with no crackles, wheeze, rhonchi or dullness. On room air. No conversational dyspnea or accessory muscle use.. CVS: S1 and S2 normal with no audible murmur, regular rhythm. No extra heart sounds ABDOMEN: No hepatosplenomegaly, active bowel sounds, no guarding or rigidity. SPINE: No scoliosis or deformity SKIN: No rashes CENTRAL NERVOUS SYSTEM: No focal deficits, tone is normal in all 4 extremities. EXTREMITIES: There is no peripheral edema, clubbing, or cyanosis. Peripheral pulses are intact. Results - Laboratory Findings CBC and BMP: 03/14/24 06:33 03/14/24 06:33 PT/INR, D-dimer PT 10.5 sec (10.0-12.5) 03/12/24 06:31 INR 0.9 (<1.2) 03/12/24 06:31 D-Dimer 0.81 mg/L FEU (<0.60) H 03/09/24 04:50 Abnormal lab findings: Abnormal Labs 03/09/24 03/09/24 03/09/24 04:50 04:50 05:07 WBC Hct 46.6 H Neutrophils # Monocytes # APTT D-Dimer 0.81 H Potassium 5.4 H Chloride 110 H Carbon Dioxide 20 L BUN Glucose 139 H Total Bilirubin 1.6 H AST 90 H ALT Troponin I Total Protein 8.9 H Albumin 5.2 H TSH 03/09/24 03/09/24 03/09/24 05:07 08:25 11:56 WBC Hct Neutrophils # Monocytes # APTT D-Dimer Potassium Chloride Carbon Dioxide BUN Glucose Total Bilirubin AST ALT Troponin I 0.066 H* 0.055 H* Total Protein Albumin TSH 14.200 H 03/09/24 03/10/24 03/10/24 16:21 00:23 06:35 WBC Hct Neutrophils # Monocytes # APTT 163.5 H* 71.3 H D-Dimer Potassium Chloride Carbon Dioxide BUN 18 H Glucose 107 H Total Bilirubin AST ALT Troponin I Total Protein Albumin TSH 03/11/24 03/11/24 03/11/24 00:30 11:29 19:15 WBC 15.1 H Hct Neutrophils # 11.9 H Monocytes # 1.4 H APTT 45.0 H D-Dimer Potassium Chloride 108 H Carbon Dioxide 19 L BUN 22 H Glucose 207 H Total Bilirubin AST ALT Troponin I Total Protein Albumin TSH 03/12/24 03/12/24 03/13/24 06:31 06:31 07:40 WBC 11.2 H Hct Neutrophils # Monocytes # APTT 72.4 H D-Dimer Potassium Chloride 109 H Carbon Dioxide BUN 26 H Glucose 115 H Total Bilirubin AST ALT Troponin I Total Protein Albumin TSH 03/13/24 03/14/24 03/14/24 07:40 06:33 06:33 WBC Hct Neutrophils # Monocytes # APTT 75.2 H 67.7 H D-Dimer Potassium Chloride 110 H Carbon Dioxide 21 L BUN 22 H Glucose Total Bilirubin AST ALT 36 H Troponin I Total Protein Albumin TSH - Diagnostic Findings Chest x-ray: image reviewed CT scan - chest: image reviewed Assessment and Plan Assessment: Acute non-ST elevation AR Multivessel coronary artery disease, heart catheterization done 03/10/2024 demonstrating severe three-vessel coronary artery disease with significant d isease involvment of the proximal LAD, demonstrating 60 to 70% , left circumflex artery with 70% stenosis. and 90% stenosis of a nondominant RCA. Patient has been evaluated by cardiothoracic surgery, scheduled for surgical revascularization tomorrow Transient episode of atrial fibrillation with rapid ventricular response, currently normal sinus mechanism History of hypertension History of hyperlipidemia History of left subclavian stenosis, noted on chest CTA, vascular surgery has evaluated and have no plans for intervention History of brain aneurysm with coiling in 2019 and stent in 2019 History of left-sided nephrectomy History of Mnire's disease Hypothyroidism; TSH 14.2, Free T4 1.23 General anxiety disorder Former tobacco dependence, quit smoking over 15 years ago. Does carry a significant smoking history of over 30 pack years. Bedside spirometry is reassuring with an FEV1 2.35 L or 99% of predicted. Chest CTA done on arrival did not show any evidence of pulmonary emboli. There was evidence of mild emphysematous changes. Biapical scarring. Few borderline mildly enlarged lymph nodes in the hilum measuring 1.2 cm. Otherwise no acute findings. Plan: Patient is scheduled for surgical revascularization tomorrow, March 16 Consulted for preoperative pulmonary clearance Based on patient's bedside spirometry, is at no increased perioperative risk She is currently up ambulating the halls on room air Encourage incentive spirometer 10 times an hour while awake We will continue to follow and address patient's perioperative pulmonary needs. I have personally seen and examined the patient, performed the documentation and the assessment and plan as written. Number of minutes spent on the visit:20 Time with Patient: Greater than 30
[2024-03-15 06:53] LABS: Basophils # (A) 0.1 k/uL (0-0.2); Basophils % (A) 1 %; Eosinophils # (A) 0.3 k/uL (0-0.7); Eosinophils % (A) 5 %; Lymphocytes # (A) 2.1 k/uL (1.0-4.8); Lymphocytes % (A) 34 %; MCHC 32.5 g/dL (31.0-37.0); MCV 89.2 fL (80.0-100.0); Mean Platelet Volume 7.2; Monocytes # (A) 0.6 k/uL (0-1.0); Monocytes % (A) 10 %; Neutrophils % (A) 48 %; Platelet Count 246 k/uL (150-450); RBC 4.48 m/uL (3.80-5.40); RDW 12.8 % (11.5-15.5); WBC 6.2 k/uL (3.8-10.6)
[2024-03-15 07:11] LABS: INR 0.9 (<1.2); Partial Thromboplastin Time 78.7 sec (22.0-30.0); Prothrombin Time 10.5 sec (10.0-12.5)
[2024-03-15 07:14] LABS: ALT 38 U/L (4-34); AST 34 U/L (14-36); African American GFR (CKD) 77 (>60 ml/min/1.73 sqM); Albumin 4.1 g/dL (3.5-5.0); Alkaline Phosphatase 99 U/L (38-126); Anion Gap 6 mmol/L; Blood Urea Nitrogen 20 mg/dL (7-17); Calcium 8.8 mg/dL (8.4-10.2); Carbon Dioxide 21 mmol/L (22-30); Chloride 111 mmol/L (98-107); Glucose 100 mg/dL (74-99); Magnesium 2.2 mg/dL (1.6-2.3); Non-African American GFR(CKD) 66 (>60 ml/min/1.73 sqM); Potassium 4.3 mmol/L (3.5-5.1); Sodium 138 mmol/L (137-145); Total Bilirubin 0.5 mg/dL (0.2-1.3); Total Protein 6.5 g/dL (6.3-8.2)
--- NOTE | 2024-03-15 08:00 | P.PN ---
Subjective Progress Note Date: 03/15/24 Principal diagnosis: Coronary artery disease, non-STEMI this admission, new onset atrial fibrillation. History of brain aneurysm with coiling in 2019 and stent in 2019, hypertension, hyperlipidemia, hypothyroid, asymptomatic left subclavian stenosis, left sided nephrectomy, Mnire's disease, previous tobacco dependence, anxiety, family history of myocardial infarction in both her mother and her father The patient was seen and examined this morning sitting up in bed in no acute distress eating breakfast. She denies any current chest pain or shortness of breath. She has been ambulatory around the hallway without incident. Our plan is for open heart surgery March [address] Conklin. Patient is aware and agreeable. All questions answered. No other new concerns at this time. Objective - Vital Signs Vital signs: Vital Signs Temp 98.1 F 03/15/24 04:00 Pulse 83 03/15/24 04:00 Resp 15 03/15/24 04:00 BP 133/74 03/15/24 04:00 Pulse Ox 97 03/15/24 04:00 FiO2 Intake & Output 03/14/24 03/15/24 03/15/24 18:59 06:59 18:59 Intake Total 776 208.847 Output Total 500 Balance 776 -500 208.847 Weight 67.8 kg Intake: Intake, IV Titration 208.847 Amount Heparin Sod,Pork in 0.45% 208.847 NaCl 25,000 unit In 0.45 % NaCl 1 250ml.bag @ 12 UNITS/KG/HR 8.136 mls/hr IV .Q24H ALISIA Rx#: [id number] Oral 776 Output: Urine 500 Other: Voiding Method Toilet Toilet # Voids 2 1 - Exam CONSTITUTIONAL: Appears comfortable, cooperative, no acute distress RESPIRATORY: Lungs sounds clear bilaterally. Respirations even, nonlabored. Currently on room air with oxygen saturation 97%. Able to achieve 2250 mL on incentive spirometry. Strong cough. CARDIOVASCULAR: S1, S2 present. Regular rate and rhythm, sinus rhythm on tele metry. Palpable peripheral pulses bilaterally. No edema present. No calf pain or tenderness noted GASTROINTESTINAL: Abdomen soft, nontender, nondistended. Active bowel sounds present 4 quadrants. Tolerating diet GENITOURINARY: Continues to void INTEGUMENTARY: Skin is warm and dry NEUROLOGIC: Cranial nerves II through XII intact MUSKULOSKELETAL: Able to move all extremities, strength equal bilaterally, gait normal PSYCHIATRIC: Alert and oriented to person place and time, appropriate affect, intact judgment and insight - Allied health notes Allied health notes reviewed: nursing - Labs CBC & Chem 7: 03/15/24 06:24 03/15/24 06:24 Labs: Abnormal Lab Results - Last 24 Hours (Table) 03/14/24 03/14/24 03/15/24 Range/Units 06:33 06:33 06:24 APTT 67.7 H (22.0-30.0) sec Chloride 110 H 111 H (98-107) mmol/L Carbon Dioxide 21 L 21 L (22-30) mmol/L BUN 22 H 20 H (7-17) mg/dL Glucose 100 H (74-99) mg/dL ALT 36 H 38 H (4-34) U/L 03/15/24 Range/Units 06:24 APTT 78.7 H (22.0-30.0) sec Chloride (98-107) mmol/L Carbon Dioxide (22-30) mmol/L BUN (7-17) mg/dL Glucose (74-99) mg/dL ALT (4-34) U/L - Imaging and Cardiology Chest x-ray: image reviewed Assessment and Plan Assessment: Coronary artery disease, non-STEMI this admission New onset atrial fibrillation, brief episode, currently sinus Chest pain, secondary to above History of brain aneurysm with coiling in 2018 and stent in 2019 Hypertension Hyperlipidemia, cholesterol 181, LDL 99 Hypothyroid, TSH 14.2, T4 1.23 Asymptomatic left subclavian stenosis Left sided nephrectomy Mnire's disease Previous tobacco dependence, preoperative FEV1 99% of predicted Anxiety Family history of myocardial infarction in both her mother and her father Plan: Continue to maximize medical therapy with aspirin, statin, beta-kimo. Plavix discontinued, continue to hold Increase activity as tolerated Continue to reinforce preoperative teaching Our plan is for off-pump myocardial revascularization with left internal mammary artery, endoscopic vein harvest, left radial artery harvest, ligation of the left atrial appendage as well as pulmonary vein isolation by Dr. Conklin March 16, 2024 N.p.o. after midnight Discontinue IV heparin 2 hours prior to surgery Medical management of other comorbidities per internal medicine, cardiology.
[2024-03-15] MEDS: hydrALAZINE HCL 25 MG TAB PO SCH (09:09)
--- NOTE | 2024-03-15 10:51 | XR ---
EXAMINATION TYPE: XR chest 2V DATE OF EXAM: 03/15/2024 7:21 AM COMPARISON: 03/09/2024 CLINICAL INDICATION: Female, 68 years old with history of Preop cardiac surgery, previous abnormal ch est x-ray TECHNIQUE: XR chest 2V view(s) obtained. FINDINGS: The heart size is normal. The pulmonary vasculature is normal. Bilateral apical thickening remains present. This appears stable from comparison.. IMPRESSION: 1. No acute pulmonary process. 2. Stable bilateral apical thickening [facility], , 03/15/2024 10:49 AM
--- NOTE | 2024-03-15 11:30 | P.PN ---
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 We have been asked to evaluate the patient for acute chest pain and new onset of A- fib with RVR. Patient states that she woke up and had to chest pain and also complained of headache. She states her blood pressure was high at home. She denies any previous history of coronary artery disease. She states she did have about of chest pain many years ago and was determined to be related to anxiety. She presented with a blood pressure of 177/78. Now, blood pressure 149/69, heart rate in the 60s, pulse ox 95% on room air. Patient is been started on heparin drip. She has also been seen by vascular surgery regarding left subclavian artery stenosis. Discussed option of possible cardiac cath eterization with the patient. Plan to obtain more information and will reassess tomorrow. -EKG: Sinus rhythm with /nonspecific ST changes, telemetry strips from EMS reviewed revealing atrial fibrillation 135 bpm -Chest x-ray: No acute process -CTA chest: No evidence of pulmonary embolus. COPD with mild emphysema. Lymph nodes in the jessica probably reactive. -CT brain previous embolization coil anterior midline. Mild burden of chronic small vessel ischemic disease. No acute process -Laboratory studies: WBC 6, hemoglobin 16, D-dimer 0.81, sodium 142, potassium 5.4, creatinine 0.8. Troponin 0.018 and 0.066, TSH 14.2. -Home cardiac medications: Amlodipine 5 mg twice daily, Plavix 75 mg daily, Lopressor 75 mg twice daily, Livalo 1 mg at bedtime, also on levothyroxine 88 mcg daily. -Echocardiogram performed 10/26/2020 revealed EF 55 to 60%, mild MR, mild TR. 03/10/24 Patient seen and examined on the Cardiac Stepdown Unit. Patient denies chest pain, no shortness of breath. Patient has been maintained on Heparin IV. She is scheduled for LHC today with Dr. Daysi Farr. Echocardiogram has been obtained and report is pending. 03/11/24 Patient seen and examined. Yesterday, patient underwent cardiac catheterization with Dr. Vann that found three-vessel coronary artery disease with nondominant right coronary artery and significant disease involving the proximal LAD and circumflex. iFR of the LAD was abnormal and borderline IFR of the circumflex. A referral was placed with CTS with plan for surgical intervention on Thursday, delayed because patient was on Plavix. Patient denies having any chest pain at this time. She has been ambulating in the hallway without symptoms. Echocardiogram revealed EF of 55 to 60%, RVSP 24, no mitral regurgitation, mild tricuspid regurgitation. 03/12/24 Patient seen and examined. Yesterday, patient was resumed on heparin drip. Patient is up getting a shower this morning. She denies having chest pain no shortness of breath, no lightheadedness or dizziness. Blood pressure 191/78 but previous blood pressures have all been well-controlled. Heart rate is in the 60s and 70s, pulse ox 98% on room air. WBC 11.2, hemoglobin 13.3. 03/13/24 Patient seen and examined. Blood pressure 166/74, heart rate 68, pulse ox 98% on room air. Repeat blood work reveals WBC 8.7, hemoglobin 13.8, potassium 4.3, BUN 26 creatinine 0.91. No complaints of chest pain, shortness of breath, lightheadedness or dizziness. 03/15/2024 Patient examined this morning at the bedside. Patient currently denies chest pain or pressure. She denies shortness of breath. She remains on IV heparin. Patient is scheduled for CABG tomorrow with Dr. Conklin. Blood pressures remain elevated with a reading this morning of 162/75. PHYSICAL EXAM: VITAL SIGNS: Reviewed. GENERAL: Well-developed in no acute distress. NECK: Supple. No JVD or thyromegaly LUNGS: Respirations even and unlabored. Lungs essentially clear to auscultation bilaterally. HEART: Regular rate and rhythm. S1 and S2 heard. EXTREMITIES: Normal range of motion. No clubbing or cyanosis. Peripheral pulses intact. No lower extremity edema ASSESSMENT: NSTEMI scheduled for CABG on 03/16 New onset paroxysmal atrial fibrillation, currently in sinus rhythm Uncontrolled hypertension Headache, resolved History of brain aneurysm status post coiling Hyperlipidemia Hypothyroidism Asymptomatic left subclavian artery stenosis PLAN: Continue IV heparin. Patient will need to be transitioned to oral anticoagulation postoperatively. Continue current cardiac medications Add hydralazine 25 mg 3 times daily for optimal blood pressure control Continue telemetry monitoring Patient is scheduled for CABG tomorrow 03/16/[address] Conklin Further recommendations pending patient course Nurse practitioner note has been reviewed by physician. Signing provider agrees with the documented findings, assessment, and plan of care documented by EKG MONITOR as a scribe. Objective - Vital Signs Vital signs: Vital Signs Temp 98.6 F 03/15/24 08:00 Pulse 68 03/15/24 08:00 Resp 17 03/15/24 08:00 BP 162/75 03/15/24 08:00 Pulse Ox 96 03/15/24 08:00 FiO2 Intake & Output 03/14/24 03/15/24 03/15/24 18:59 06:59 18:59 Intake Total 776 326.847 Output Total 500 Balance 776 -500 326.847 Weight 67.8 kg Intake: Intake, IV Titration 208.847 Amount Heparin Sod,Pork in 0.45% 208.847 NaCl 25,000 unit In 0.45 % NaCl 1 250ml.bag @ 12 UNITS/KG/HR 8.136 mls/hr IV .Q24H ALISIA Rx#: [id number] Oral 776 118 Output: Urine 500 Other: Voiding Method Toilet Toilet Toilet # Voids 2 1 - Labs CBC & Chem 7: 03/15/24 06:24 03/15/24 06:24 Labs: Abnormal Lab Results - Last 24 Hours (Table) 03/15/24 03/15/24 03/15/24 Range/Units 06:24 06:24 06:24 APTT 78.7 H (22.0-30.0) sec Chloride 111 H (98-107) mmol/L Carbon Dioxide 21 L (22-30) mmol/L BUN 20 H (7-17) mg/dL Glucose 100 H (74-99) mg/dL ALT 38 H (4-34) U/L Crossmatch See Detail
--- NOTE | 2024-03-15 12:12 | P.PN ---
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 She presented to the emergency department on 03/09/24 with a chief complaint of chest pain and palpitations. She reports awakening to a severe pressure to midsternal chest accompanied by palpitations like her heart was beating very fast. She denies history of this occurring in the past and became very concerned so she called EMS. Per documentation in chart patient was found to be in atrial fibrillation with RVR by EMS. She was given aspirin 324 mg and transferred to our facility. While in route to our facility, patient converted from A-fib RVR back into normal sinus mechanism. Upon arrival to our facility, patient underwent evaluation in the emergency department. Vital signs upon arrival show blood pressure 177/78, heart rate 86, respiratory rate 18, temp 98.0 F, and SpO2 of 97% on room air. EKG completed showing normal sinus rhythm at [address] depression in inferior lead II. Chest x-ray completed negative for acu te cardiopulmonary process. CT brain completed showing previous embolization coil anterior midline with mild burden of chronic small vessel ischemic disease but negative for acute intracranial process. Labs completed and reviewed. CBC unremarkable with exception of elevated hematocrit of 46.6. Coagulation profile showing elevated D-dimer of 0.81. BMP showing high anion gap metabolic acidosis with chloride of 110, bicarb of 20, and anion gap of 12 with reports of hyperkalemia with potassium of 5.4 but also reported as a hemolyzed specimen. Blood glucose 139. Liver profile showing hyperbilirubinemia with elevated total bili of 1.6 and AST of 90 otherwise normal findings. Initial troponin 0.018. TSH was 14.200 with free T4 normal at 1.23. Patient was admitted under our services with consultation to cardiology.Initial troponin 0.018 with repeat troponin of 0.066 and 0.055. Lipid profile unremarkable. Echocardiogram completed showing preserved EF of 55 to 60% with mild tricuspid regurgitation. Cardiology evaluated and took patient for cardiac catheterization which revealed multivessel coronary artery disease, sheeter helper recommending evaluation by cardiothoracic surgery for CABG. Cardiothoracic surgery evaluated and planning for off-pump myocardial revascularization with left internal mammary artery, endoscopic vein harvest, left radial artery harvest, ligation of the left atrial appendage as well as pulmonary vein isolation by Dr. Conklin tomorrow. Physical exam: Patient seen and fully evaluated at bedside. She was currently resting in bed and reports feeling slightly anxious today. Patient reports she is just ready to get this over with and states she is letting her anxiety get the best of her today. Patient reassured and were informed that she has medication available if she feels anxious and recommend her taking if needed. Patient reports she has friends and family coming to visit today before the procedure so she is holding off on the medication right now. She denies having any chest pain, palpitations, shortness of breath, abdominal pain, nausea, vomiting, or any other complaints at this time. Vital signs reviewed and stable. General: Nontoxic, no distress and appears stated age. Derm: Skin warm and dry, normal coloration for ethnicity. Head: Atraumatic, normocephalic and symmetric. Eyes: EOM's intact, no lid lag, and anicteric sclera Mouth: no lip lesions, mucus membranes moist Cardiovascular: regular rate and rhythm with normal S1S2, systolic murmur, positive posterior tibial pulses bilaterally, and cap refill < 2 seconds. Lungs: Respirations even, regular, and unlabored on room air. Lungs CTA bilaterally, no rhonchi, no rales, no wheezing, and no accessory muscle usage. Abdominal: soft, nontender to palpation, no guarding, no appreciable organomegaly Ext: ROM intact. No gross muscle atrophy, no edema, no contractures Neuro: Speech clear, face symmetrical and CN II-XII grossly intact with no noted focal neuro deficits Psych: Alert and oriented to person, place, time, and situation. Appropriate and pleasant affect. Assessment and Plan of Care: Chest pain and palpitations, findings of multivessel coronary artery disease Atrial fibrillation with RVR, per EMS report Elevated troponin Hypertension Hyperlipidemia -Cardiology following and took patient for cardiac catheterization which revealed multivessel coronary artery disease, sheeter helper recommending evaluation by cardiothoracic surgery for CABG. -Cardiothoracic surgery evaluated and patient is scheduled for off-pump myocardial revascularization with left internal mammary artery, endoscopic vein harvest, left radial artery harvest, ligation of the left atrial appendage as well as pulmonary vein isolation by Dr. Conklin tomorrow. -Telemetry monitoring -Continue low intensity heparin infusion. Will monitor PTT closely for goal therapeutic range of 49 to 74 seconds. PTT therapeutic at 78.7 seconds.. -Continue aspirin 81 mg daily, amlodipine 5 mg twice daily, atorvastatin 40 mg nightly, Plavix 75 mg daily, isosorbide mononitrate 30 mg daily, losartan 50 mg daily, and metoprolol 75 mg twice daily. -Echocardiogram completed showing preserved EF of 55 to 60% with mild tricuspid regurgitation. History of left nephrectomy -Nephrology following and discussed plan with Dr. Ruiz. Currently renal function stable. Will continue to monitor closely. Mild prerenal azotemia -Continue patient on very gentle IV fluid hydration with 0.9% normal saline at 50 cc/h to ensure adequate hydration and optimize renal function prior to CABG. Hypothyroidism -Continue daily medication regimen with levothyroxine 88 mcg daily. Anxiety -Continue Ativan 0.5 mg twice daily. 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 Intractable headache, resolved. Headache resolved after administration of migraine cocktail. Data and imaging reviewed: Morning labs reviewed. CBC unremarkable. BMP showing mild non-anion gap metabolic acidosis with chloride of 111, bicarb of 21, and anion gap of 6 with mild prerenal azotemia with BUN of 20. Blood glucose 100. Magnesium 2.2. Liver profile showing slightly elevated ALT of 38 otherwise normal findings. PTT therapeutic at 78.7 seconds Vital signs reviewed. Blood pressure 162/75, heart rate 68, respiratory rate 17, temp 98.6 F, and SpO2 of 96% on room air.. CODE STATUS: Full code DVT prophylaxis: Heparin infusion Anticipated discharge date: Pending clinical course Anticipated discharge place: Inpatient rehab Patient was seen independently by Nurse Practitioner. This document was prepared using [employer] dictation software. Please allow for errors in ball mill mixer while rare they do occur. Hubert Garnica NP rendered care for this patient independently, reviewed the findings and plan as documented in the note above and agree with plan. I did not physically speak with or examine the patient on this date. Objective - Vital Signs Vital signs: Vital Signs Temp 98.1 F 03/15/24 04:00 Pulse 83 03/15/24 04:00 Resp 15 03/15/24 04:00 BP 133/74 03/15/24 04:00 Pulse Ox 97 03/15/24 04:00 FiO2 Intake & Output 03/14/24 03/15/24 03/15/24 18:59 06:59 18:59 Intake Total 776 326.847 Output Total 500 Balance 776 -500 326.847 Weight 67.8 kg Intake: Intake, IV Titration 208.847 Amount Heparin Sod,Pork in 0.45% 208.847 NaCl 25,000 unit In 0.45 % NaCl 1 250ml.bag @ 12 UNITS/KG/HR 8.136 mls/hr IV .Q24H [facility] Rx#: [id number] Oral 776 118 Output: Urine 500 Other: Voiding Method Toilet Toilet # Voids 2 1 - Labs CBC & Chem 7: 03/15/24 06:24 03/15/24 06:24 Labs: Abnormal Lab Results - Last 24 Hours (Table) 03/14/24 03/15/24 03/15/24 Range/Units 06:33 06:24 06:24 APTT 67.7 H (22.0-30.0) sec Chloride 111 H (98-107) mmol/L Carbon Dioxide 21 L (22-30) mmol/L BUN 20 H (7-17) mg/dL Glucose 100 H (74-99) mg/dL ALT 38 H (4-34) U/L Crossmatch See Detail 03/15/24 Range/Units 06:24 APTT 78.7 H (22.0-30.0) sec Chloride (98-107) mmol/L Carbon Dioxide (22-30) mmol/L BUN (7-17) mg/dL Glucose (74-99) mg/dL ALT (4-34) U/L Crossmatch
--- NOTE | 2024-03-15 12:30 | P.NPCON ---
History of Present Illness - Reason for Consult chronic renal failure - History of Present Illness patient is a 68-year-old female with history of chronic kidney disease stage II with solitary kidney with 60% stenosis in the right renal artery and history of hypertension. Patient has a history of left nephrectomy in 1998 for nonfunctioning left kidney and repeated infections. Baseline creatinine about 0.9-0.8 mg/dL Patient was admitted to the hospital with uncontrolled hypertension and fatigue. She ruled in for non-ST elevation MIand cardiac catheterization showed multivessel disease. Patient is scheduled for coronary artery bypass surgery on 03/16/2024. Patient was also noticed to have new onset paroxysmal A. fib and is currently in sinus rhythm. Currently maintained on saline at 50 mL an hour. Renal function is stable with serum creatinine at 0.89 mg/dL this morning. Blood pressure was uncontrolled earlier, better controlled now. Currently complaining of significant anxiety from scheduled surgery tomorrow. Currently maintained on Cozaar, Lopressor and amlodipine and hydralazine. Patient was only maintained on amlodipine and metoprolol prior to admission. There is concern for possible ALLERGY/angioedema with LEONCIO inhibitor's any years ago. Past Medical History Past Medical History: Hearing Disorder / Deafness, Hyperlipidemia, Hypertension, Respiratory Disorder, Thyroid Disorder, Vascular Disorder Additional Past Medical History / Comment(s): 03/2019 brain aneurysm with rupture-went to [facility] and had brain coil and recently had brain stent, meniere's disese/vertigo and had surgery behind R ear, bilateral KAW/wears aides, L ureteral hernia surgically repaired/then scarred causing blockage and had L nephrectomy, murmur, bronchitis, hypothyroid, sinus problems/allergies and recent sinus infection, bronchitis. History of Any Multi-Drug Resistant Organisms: None Reported Past Surgical History: Hysterectomy, Orthopedic Surgery Additional Past Surgical History / Comment(s): Left nephrectomy, brain aneurysm with coil then stent in brain, R behind ear surgery for Meniere's, colonoscopy. Past Anesthesia/Blood Transfusion Reactions: No Reported Reaction Additional Past Anesthesia/Blood Transfusion Reaction / Comment(s): Pt has received blood with misscarriage and when had hysterectomy without reaction. Past Psychological History: Anxiety, Depression, Panic Disorder Smoking Status: Former smoker - Past Family History Mother Family Medical History: Hypertension Additional Family Medical History / Comment(s): Mother is . Father Family Medical History: Diabetes Mellitus Additional Family Medical History / Comment(s): Father is Medications and Allergies Home Medications Medication Instructions Recorded Confirmed Type Calcium Carbonate/Vitamin D3 2 tab PO DAILY 09/21/14 03/09/24 History [Calcium 600-Vit D3 400 Tablet] cycloSPORINE [Restasis] 1 drop BOTH EYES BID 09/21/14 03/09/24 History Vitamin E (Dl,Tocopheryl Acet) 400 unit PO DAILY 04/18/19 03/09/24 History [Vitamin E (400 Iu = 180 mg)] Clopidogrel Bisulfate [Plavix] 75 mg PO DAILY 11/24/19 03/09/24 History Cyanocobalamin (Vitamin B-12) 1,000 mcg PO DAILY 11/24/19 03/09/24 History [Vitamin B-12] LORazepam [Ativan] 0.5 mg PO BID 11/24/19 03/09/24 History Vitamin B Complex/Folic Acid 1 tab PO DAILY 11/24/19 03/09/24 History [B-Complex Tablet] Levothyroxine Sodium [Synthroid] 88 mcg PO DAILY 03/09/24 03/09/24 History Metoprolol Tartrate [Lopressor] 75 mg PO BID 03/09/24 03/09/24 History Multivit-Min/Iron/Folic/Lutein 1 tab PO DAILY 03/09/24 03/09/24 History [Centrum Silver Women Tablet] Pitavastatin Calcium [Livalo] 1 mg PO HS 03/09/24 03/09/24 History amLODIPine [Norvasc] 5 mg PO BID 03/09/24 03/09/24 History Allergies Allergy/AdvReac Type Severity Reaction Status Date / Time clarithromycin [From Biaxin] Allergy Unknown Verified 03/09/24 08:27 clonidine Allergy Swelling Verified 03/09/24 08:27 Iodinated Contrast Media Allergy Unknown Verified 03/09/24 08:27 [Iodinated Contrast Media - IV Dye] levofloxacin [From Levaquin] Allergy Unknown Verified 03/09/24 08:27 methylprednisolone Allergy Rash/Hives Verified 03/09/24 08:27 [From Medrol] moxifloxacin HCl Allergy Unknown Verified 03/09/24 08:27 [From Avelox] scopolamine Allergy Rash/Hives Verified 03/09/24 08:27 [From Transderm-Scop] Sulfa (Sulfonamide Allergy Unknown Verified 03/09/24 08:27 Antibiotics) ciprofloxacin [From Cipro] AdvReac Rash/Hives Verified 03/09/24 08:27 clindamycin AdvReac HEARTBURN Verified 03/09/24 08:27 doxycycline AdvReac Headache & Verified 03/09/24 08:27 Vomitting nitrofurantoin AdvReac Headache & Verified 03/09/24 08:27 [From Macrobid] Vomitting nitrofurantoin AdvReac Headache & Verified 03/09/24 08:27 macrocrystalline Vomitting [From Macrobid] Physical Exam Vitals: Vital Signs Temp Pulse Resp BP Pulse Ox 03/15/24 11:26 69 16 157/72 96 03/15/24 08:00 98.6 F 68 17 162/75 96 03/15/24 04:00 98.1 F 83 15 133/74 97 03/14/24 23:21 60 16 154/70 98 03/14/24 20:00 97.9 F 66 16 175/77 98 03/14/24 16:00 97.3 F L 68 16 161/71 97 Intake and Output 03/14/24 03/15/24 03/15/24 22:59 06:59 14:59 Intake Total 118 326.847 Output Total 500 Balance 118 -500 326.847 Intake: Intake, IV Titration 208.847 Amount Heparin Sod,Pork in 0.45% 208.847 NaCl 25,000 unit In 0.45 % NaCl 1 250ml.bag @ 12 UNITS/KG/HR 8.136 mls/hr IV .Q24H [facility] Rx#: [id number] Oral 118 118 Output: Urine 500 Other: Voiding Method Toilet Toilet Toilet # Voids 1 Weight 67.8 kg patient is awake, comfortable, no acute distress. 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 Chronic kidney disease stage II with solitary kidney and history of right renal artery stenosis, about 60% noted on CTA in 2019. Baseline creatinine about 0.9-0.8 mg/dL. UA has been benign. 2. History of left nephrectomy for nonfunctioning kidney and repeated infections in 1998 3. Hypertension which had been very well controlled previously on 2 medications. Renal artery stenosis was not contributing to hypertension previously. This may have changed with worsening renal artery stenosis. Currently maintained on angiotensin receptor blockers along with amlodipine, metoprolol and low-dose hydralazine. Renal function is stable with use of angiotensin receptor blockers in the setting of solitary kidney. History of angioedema'/possible ALLERGY to leoncio inhibitors previously. 4. Non-ST elevation ID scheduled for coronary artery bypass surgery tomorrow 5. Paroxysmal A. fib currently in sinus rhythm Plan: continue current antihypertensive regimen with close monitoring of serum potassium levels due to solitary kidney. Patient has had previous ALLERGY/possible angioedema with LEONCIO inhibitor's many years ago, therefore we will continue to monitor for possible reaction to Cozaar. continue to monitor renal function. thank you for the consultation. We will continue to follow the patient with you during her hospitalization.
[2024-03-16] MEDS: METOPROLOL TARTRATE 12.5 MG TAB PO ONE (04:25)
[2024-03-16] MEDS: ASPIRIN 325 MG TAB PO ONE (04:26)
[2024-03-16] MEDS ORDERED: INSULIN REGULAR 100 UNIT in SODIUM CHLORIDE 0.9% 100 ML IV SCH (05:00)
[2024-03-16] MEDS ORDERED: NOREPINEPHRINE 4 MG in SODIUM CHLORIDE 0.9% 250 ML IV SCH (05:00)
[2024-03-16] MEDS: IV FLUID CONTINUATION 1,000 ML IV ONE (05:48)
[2024-03-16] MEDS: CHLORHEXIDINE GLUCONATE 15 ML CUP MUCOUS MEM ONE (06:24)
[2024-03-16 06:59] LABS: Glucose,Whole Blood 95 mg/dL (70-110)
[2024-03-16] MEDS ORDERED: SODIUM BICARB 8.4% 50 ML SYR (1 MEQ/ML) ONE (07:54)
[2024-03-16] MEDS ORDERED: ROCURONIUM 10 MG/ML (5 ML VIAL) IV ONE (07:54)
[2024-03-16] MEDS ORDERED: VECURONIUM 10 MG VIAL IV ONE (07:54)
[2024-03-16] MEDS ORDERED: SODIUM CHLORIDE 0.9% IRRIG 1,000 ML BTL IRRIGATION ONE (07:54)
[2024-03-16] MEDS ORDERED: ELECTROLYTE-R (PH 7.4) 1,000 ML IV.SOLN IV ONE (07:54)
[2024-03-16] MEDS ORDERED: PROTAMINE SULFATE 10 MG/ML 25 ML VIAL IV ONE (07:54)
[2024-03-16] MEDS ORDERED: INSULIN REGULAR 100 UNIT/ML VIAL (IV) ONE (07:54)
[2024-03-16] MEDS ORDERED: CALCIUM CHLORIDE 100 MG/ML 10 ML SYRINGE ONE (07:54)
[2024-03-16] MEDS ORDERED: ATROPINE SULFATE 0.1 MG/ML 10ML SYRINGE ONE (07:54)
[2024-03-16] MEDS ORDERED: MIDAZOLAM HCL 10 MG/10 ML VIAL ONE (07:54)
[2024-03-16] MEDS ORDERED: PHENYLEPHRINE-0.9% NACL SYG 1,000 MCG/10 ML SYRINGE ONE (07:54)
[2024-03-16] MEDS ORDERED: fentaNYL (PF) 50 MCG/ML 50 ML VIAL ONE (07:54)
[2024-03-16] MEDS ORDERED: PROPOFOL 10 MG/ML 20 ML VIAL IV ONE (07:54)
[2024-03-16] MEDS: SODIUM CHLORIDE 0.9% 50 ML with ceFAZolin 2,000 MG IV ONE (08:00)
[2024-03-16 08:40] LABS: ABG Base Excess -3.9 mmol/L; ABG Glucose Whole Blood 99 mg/dL (75-99); ABG HCO3 20 mmol/L (21-25); ABG Hematocrit 32 % (34.0-46.0); ABG Ionized Calcium 4.5 mg/dL (4.5-5.3); ABG Oxygen Saturation 98.8 % (94-97); ABG PCO2 32 mmHg (35-45); ABG PH 7.41 (7.35-7.45); ABG PO2 270 mmHg (83-108); ABG Potassium Whole Blood 3.8 mmol/L (3.4-4.5); ABG Sodium Whole Blood 143 mmol/L (135-146); ABG TCO2 19 mmol/L (19-24); Allen Test Performed? Yes
[2024-03-16] MEDS: PAPAVERINE 360 MG in SODIUM CHLORIDE 0.9% 90 ML IV ONE ×2 (09:13→13:02)
[2024-03-16] MEDS: SODIUM CHLORIDE 0.9% 500 ML 500 ML with HEPARIN SODIUM,PORCINE (1 ML) 5,000 UNIT IV ONE (09:13)
[2024-03-16] MEDS: ceFAZolin 1,000 MG in SODIUM CHLORIDE 0.9% 1,000 ML IRRIGATION ONE (09:14)
[2024-03-16 10:18] LABS: Allen Test Performed? Yes
[2024-03-16 10:20] LABS: ABG Base Excess -6.8 mmol/L; ABG Glucose Whole Blood 106 mg/dL (75-99); ABG HCO3 20 mmol/L (21-25); ABG Hematocrit 27 % (34.0-46.0); ABG Ionized Calcium 5.4 mg/dL (4.5-5.3); ABG Lactic Acid Whole Blood 0.9 mmol/L (0.5-1.6); ABG Oxygen Saturation 98.7 % (94-97); ABG PCO2 42 mmHg (35-45); ABG PH 7.28 (7.35-7.45); ABG PO2 310 mmHg (83-108); ABG Sodium Whole Blood 143 mmol/L (135-146); ABG TCO2 19 mmol/L (19-24)
[2024-03-16 10:49] LABS: ABG Base Excess -4.4 mmol/L; ABG Glucose Whole Blood 102 mg/dL (75-99); ABG HCO3 20 mmol/L (21-25); ABG Ionized Calcium 4.8 mg/dL (4.5-5.3); ABG Lactic Acid Whole Blood 0.6 mmol/L (0.5-1.6); ABG Oxygen Saturation 98.8 % (94-97); ABG PCO2 34 mmHg (35-45); ABG PH 7.39 (7.35-7.45); ABG PO2 306 mmHg (83-108); ABG Potassium Whole Blood 4.6 mmol/L (3.4-4.5); ABG Sodium Whole Blood 144 mmol/L (135-146); ABG TCO2 19 mmol/L (19-24); Allen Test Performed? Yes
[2024-03-16 11:17] LABS: Basophils # (A) 0.1 k/uL (0-0.2); Basophils % (A) 1 %; Eosinophils # (A) 0.2 k/uL (0-0.7); Eosinophils % (A) 3 %; HCT 41.9 % (34.0-46.0); HGB 13.7 gm/dL (11.4-16.0); Lymphocytes # (A) 1.6 k/uL (1.0-4.8); Lymphocytes % (A) 26 %; MCH 29.4 pg (25.0-35.0); MCHC 32.8 g/dL (31.0-37.0); MCV 89.5 fL (80.0-100.0); Mean Platelet Volume 9.5; Monocytes # (A) 0.5 k/uL (0-1.0); Monocytes % (A) 8 %; Neutrophils # (A) 3.7 k/uL (1.3-7.7); Neutrophils % (A) 60 %; Platelet Count 273 k/uL (150-450); RBC 4.68 m/uL (3.80-5.40); RDW 13.4 % (11.5-15.5); WBC 6.2 k/uL (3.8-10.6)
[2024-03-16 11:50] LABS: INR 0.9 (<1.2); Prothrombin Time 10.3 sec (10.0-12.5)
[2024-03-16 11:56] LABS: ABG Base Excess -0.4 mmol/L; ABG Glucose Whole Blood 109 mg/dL (75-99); ABG HCO3 23 mmol/L (21-25); ABG Ionized Calcium 4.6 mg/dL (4.5-5.3); ABG Lactic Acid Whole Blood 0.8 mmol/L (0.5-1.6); ABG Oxygen Saturation 98.8 % (94-97); ABG PCO2 31 mmHg (35-45); ABG PH 7.47 (7.35-7.45); ABG PO2 291 mmHg (83-108); ABG Potassium Whole Blood 4.3 mmol/L (3.4-4.5); ABG Sodium Whole Blood 144 mmol/L (135-146); ABG TCO2 22 mmol/L (19-24); Allen Test Performed? Yes
[2024-03-16 12:06] LABS: ABG Hematocrit 24 % (34.0-46.0)
[2024-03-16 12:13] LABS: ABG Hematocrit 22 % (34.0-46.0)
[2024-03-16 12:22] LABS: ABG Base Excess -1.5 mmol/L; ABG Glucose Whole Blood 117 mg/dL (75-99); ABG HCO3 23 mmol/L (21-25); ABG Ionized Calcium 4.6 mg/dL (4.5-5.3); ABG Lactic Acid Whole Blood 0.8 mmol/L (0.5-1.6); ABG Oxygen Saturation 98.7 % (94-97); ABG PCO2 35 mmHg (35-45); ABG PH 7.42 (7.35-7.45); ABG PO2 297 mmHg (83-108); ABG Potassium Whole Blood 4.2 mmol/L (3.4-4.5); ABG Sodium Whole Blood 144 mmol/L (135-146); ABG TCO2 22 mmol/L (19-24); Allen Test Performed? Yes
[2024-03-16] MEDS: CARDIOPLEGIC SOLN (K+ 16 MEQ/L 1,000 ML with SOD BICARB SYR 8.4% (1 MEQ/ML) 20 ML, LIDO... PERFUSION ONE (12:58)
[2024-03-16] MEDS: PHENYLEPHRINE 10 MG/ML VIAL IV ONE (12:58)
[2024-03-16] MEDS: MD COMMUNICATION TO PHARMACY 1 EACH MISC PO ONE (12:58)
[2024-03-16] MEDS: ALBUMIN HUMAN 25% 50 ML in EMPTY BAG 1 BAG IVPB ONE (12:59)
[2024-03-16] MEDS: ALBUMIN HUMAN 5% 500 ML in EMPTY BAG 1 BAG IVPB ONE ×6 (12:59→13:00)
[2024-03-16] MEDS: CLEVIDIPINE BUTYRATE 25 MG in EMPTY BAG 1 BAG IV SCH ×2 (13:00→16:20)
[2024-03-16] MEDS: CALCIUM CHLORIDE 100 MG/ML 10 ML SYRINGE IVP ONE (13:00)
[2024-03-16] MEDS: ceFAZolin 1,000 MG in SODIUM CHLORIDE 0.9% IRRIGATIO 1,000 ML IRRIGATION ONE (13:00)
[2024-03-16] MEDS: LACTATED RINGERS 1,000 ML IV SCH (13:01)
[2024-03-16] MEDS: DILTIAZEM 125 MG in SODIUM CHLORIDE 0.9% 100 ML IV SCH (13:01)
[2024-03-16] MEDS: HEPARIN SODIUM,PORCINE (1 ML) 5,000 UNIT in SODIUM CHLORIDE 0.9% 500 ML 500 ML IV ONE (13:01)
[2024-03-16] MEDS: HEPARIN SODIUM 1,000 UN/ML (10ML VL) IV ONE (13:01)
[2024-03-16] MEDS: NITROGLYCERIN-D5W PMX 50 MG in DEXTROSE/WATER 1 250ML.BAG IV SCH ×2 (13:02→15:00)
[2024-03-16] MEDS: MANNITOL 25% 12.5 GM/50 ML VIAL IV ONE ×2 (13:02)
[2024-03-16] MEDS: PHENYLEPHRINE 40 MG in SODIUM CHLORIDE 0.9% 250 ML IV ONE (13:02)
[2024-03-16] MEDS: MAGNESIUM SULFATE 16.24 MEQ in EMPTY SYRINGE 1 SYR IV ONE (13:02)
[2024-03-16] MEDS: NITROGLYCERIN-D5W PMX 25 MG/250 ML BTL IV ONE (13:02)
[2024-03-16 13:03] LABS: ABG Base Excess -2.1 mmol/L; ABG Glucose Whole Blood 144 mg/dL (75-99); ABG HCO3 23 mmol/L (21-25); ABG Ionized Calcium 4.6 mg/dL (4.5-5.3); ABG Lactic Acid Whole Blood 0.8 mmol/L (0.5-1.6); ABG Oxygen Saturation 98.7 % (94-97); ABG PCO2 37 mmHg (35-45); ABG PH 7.39 (7.35-7.45); ABG PO2 291 mmHg (83-108); ABG Sodium Whole Blood 143 mmol/L (135-146); ABG TCO2 22 mmol/L (19-24); Allen Test Performed? Yes
[2024-03-16] MEDS: PROTAMINE SULFATE 250 MG in EMPTY BAG 1 BAG IV ONE (13:03)
[2024-03-16] MEDS: SODIUM BICARB 8.4% 50 ML SYR (1 MEQ/ML) IV ONE (13:03)
[2024-03-16] MEDS: PROTAMINE SULFATE 10 MG/ML 25 ML VIAL IV ONE (13:03)
[2024-03-16] MEDS: TRANEXAMIC ACID 2,000 MG in SODIUM CHLORIDE 0.9% 80 ML IV ONE (13:03)
[2024-03-16 13:42] LABS: ABG Hematocrit 22 % (34.0-46.0)
[2024-03-16 13:43] LABS: ABG Hematocrit 22 % (34.0-46.0)
[2024-03-16 13:54] LABS: ABG Glucose Whole Blood 147 mg/dL (75-99); ABG HCO3 21 mmol/L (21-25); ABG Hematocrit 26 % (34.0-46.0); ABG Ionized Calcium 5.5 mg/dL (4.5-5.3); ABG Lactic Acid Whole Blood 1.4 mmol/L (0.5-1.6); ABG Oxygen Saturation 98.7 % (94-97); ABG PCO2 41 mmHg (35-45); ABG PH 7.32 (7.35-7.45); ABG PO2 253 mmHg (83-108); ABG Potassium Whole Blood 3.9 mmol/L (3.4-4.5); ABG Sodium Whole Blood 143 mmol/L (135-146); ABG TCO2 20 mmol/L (19-24); Allen Test Performed? Yes
--- NOTE | 2024-03-16 14:00 | P.ANPRN ---
Procedure Note - Anesthesia - Invasive Line Right Central Line Time Out Performed: Yes Date of Procedure: 03/16/24 Time of Procedure: 07:47 Location of Patient: PreOp Preparation: Sterile Prep Central Line Location: Internal Jugular Ultrasound Used: No Purpose - Visualization and Identification of Vasculature: No Image Stored and Saved: No Narrative: Invasive line placement per sterile protocol utilized.
--- NOTE | 2024-03-16 14:00 | P.ANPRN ---
Procedure Note - Anesthesia - Invasive Line Right [place] Time Out Performed: Yes Date of Procedure: 03/16/24 Time of Procedure: 07:53 Location of Patient: PreOp Preparation: Sterile Prep, Sterile Dressing Central Line Location: Internal Jugular Ultrasound Used: No Purpose - Visualization and Identification of Vasculature: No Image Stored and Saved: No Narrative: Invasive line placement per sterile protocol utilized.
[2024-03-16 14:01] LABS: ALT 42 U/L (4-34); AST 33 U/L (14-36); African American GFR (CKD) 72 (>60 ml/min/1.73 sqM); Albumin 4.4 g/dL (3.5-5.0); Alkaline Phosphatase 103 U/L (38-126); Anion Gap 8 mmol/L; Blood Urea Nitrogen 20 mg/dL (7-17); Calcium 9.3 mg/dL (8.4-10.2); Carbon Dioxide 20 mmol/L (22-30); Chloride 114 mmol/L (98-107); Glucose 96 mg/dL (74-99); Non-African American GFR(CKD) 62 (>60 ml/min/1.73 sqM); Potassium 4.1 mmol/L (3.5-5.1); Sodium 142 mmol/L (137-145); Total Bilirubin 0.5 mg/dL (0.2-1.3); Total Protein 7.1 g/dL (6.3-8.2)
[2024-03-16] MEDS ORDERED: BENZOCAINE/MENTHOL LOZENG 1 EACH LOZENGE MUCOUS MEM PRN (14:18)
[2024-03-16] MEDS ORDERED: Potassium Replacement Protocol 1 EACH MISC MISCELLANE PRN (14:18)
[2024-03-16] MEDS ORDERED: IPRATROPIUM-ALBUTEROL 3 ML NEB INHALATION PRN (14:18)
[2024-03-16] MEDS ORDERED: Magnesium Replacement Protocol 1 EACH MISC MISCELLANE PRN (14:18)
[2024-03-16] MEDS ORDERED: DEXTROSE 50% SYRINGE 50 ML IVP PRN ×2 (14:18)
[2024-03-16] MEDS ORDERED: DEXMEDETOMIDINE/0.9% NACL(PMX) 400 MCG in EMPTY BAG 1 BAG IV SCH (14:30)
[2024-03-16 14:58] LABS: Glucose,Whole Blood 119 mg/dL (70-110)
[2024-03-16] MEDS: SODIUM CHLORIDE 0.9% 1,000 ML IV SCH (15:00)
[2024-03-16] MEDS: ALBUMIN HUMAN 5% 250 ML in EMPTY BAG 1 BAG IVPB PRN (15:00)
[2024-03-16 15:26] LABS: ABG Base Excess -4.2 mmol/L; ABG HCO3 20 mmol/L (21-25); ABG Oxygen Saturation 99.9 % (94-97); ABG PCO2 33 mmHg (35-45); ABG PO2 300 mmHg (83-108); ABG TCO2 21 mmol/L (19-24)
[2024-03-16 15:26] LABS: Basophils % (A) 0 %; Eosinophils # (A) 0.1 k/uL (0-0.7); Eosinophils % (A) 1 %; HCT 23.7 % (34.0-46.0); Lymphocytes % (A) 12 %; MCH 30.5 pg (25.0-35.0); MCHC 34.7 g/dL (31.0-37.0); MCV 87.7 fL (80.0-100.0); Mean Platelet Volume 7.9; Monocytes # (A) 0.5 k/uL (0-1.0); Monocytes % (A) 7 %; Neutrophils # (A) 6.2 k/uL (1.3-7.7); Neutrophils % (A) 80 %; RDW 13.4 % (11.5-15.5); WBC 7.9 k/uL (3.8-10.6)
--- NOTE | 2024-03-16 15:28 | XR ---
EXAMINATION TYPE: XR chest 1V portable DATE OF EXAM: 03/16/2024 3:15 PM COMPARISON: 03/15/2024 CLINICAL INDICATION: Female, 68 years old with history of Post Operative Cardiac Surgery, TECHNIQUE: XR chest 1V portable view(s) obtained. FINDINGS: The heart size is normal. The pulmonary vasculature is upper limits for normal. Mild platelike atelectasis at the right base. Mild subsegmental atelectasis may be at the left base Endotracheal tube is present with the tip 5 cm above the jaki. Left-sided chest tube is present. No pneumothorax evident on the left. Mediastinal tube is in the midline. Nasogastric tube transverses t he thorax with the tip in the left upper quadrant of the abdomen. [place] catheter is present with the tip in the right main pulmonary artery region. There is a small right apical pneumothorax. Some subcutaneous emphysema is on the right. Report was c alled to the ICU nurse per Dr. Romero by telephone at the time of interpretation. IMPRESSION: 1. Small right apical pneumothorax. 2. Multiple lines and catheters discussed above. 3. Bibasilar atelectasis. [facility], , 03/16/2024 3:26 PM
[2024-03-16 15:29] LABS: HGB 8.2 gm/dL (11.4-16.0)
[2024-03-16 15:31] LABS: Allen Test Performed? no
[2024-03-16 15:34] LABS: Ionized Calcium 5.4 mg/dL (4.5-5.3)
[2024-03-16] MEDS: HEPARIN SODIUM,PORCINE 5,000 UNIT/ML 1 ML VIAL SQ SCH (15:42)
[2024-03-16 15:43] LABS: Crenated RBC Present; Platelet Count 111 k/uL (150-450); Poikilocytosis (M) Present
[2024-03-16 15:45] LABS: ALT 14 U/L (4-34); AST 23 U/L (14-36); African American GFR (CKD) >90 (>60 ml/min/1.73 sqM); Albumin 2.9 g/dL (3.5-5.0); Alkaline Phosphatase 27 U/L (38-126); Anion Gap 4 mmol/L; Blood Urea Nitrogen 16 mg/dL (7-17); Calcium 9.2 mg/dL (8.4-10.2); Carbon Dioxide 20 mmol/L (22-30); Chloride 117 mmol/L (98-107); Glucose 109 mg/dL (74-99); Magnesium 2.3 mg/dL (1.6-2.3); Non-African American GFR(CKD) 88 (>60 ml/min/1.73 sqM); Sodium 141 mmol/L (137-145); Total Bilirubin 0.9 mg/dL (0.2-1.3); Total Protein 4.2 g/dL (6.3-8.2)
[2024-03-16 16:12] LABS: INR 1.4 (<1.2); Partial Thromboplastin Time 40.9 sec (22.0-30.0); Prothrombin Time 14.6 sec (10.0-12.5)
[2024-03-16] MEDS: AMIODARONE 360 MG in DEXTROSE 5% IN WATER 200 ML IV ONE (16:21)
[2024-03-16 16:25] LABS: Glucose,Whole Blood 151 mg/dL (70-110)
--- NOTE | 2024-03-16 16:26 | P.PN ---
Subjective Progress Note Date: 03/16/24 Patient seen in the ICU. She is currently intubated and sedated. 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 After surgery patient's hemoglobin dropped to 8.2. Continue to monitor CBC Monitor Accu-Cheks. A1c on 03/11/2024 was 5.4. As per cardiology and CT surgery continue with aspirin 325 mg p.o. daily, atorvastatin 40 mg p.o. daily, Plavix 75 mg p.o. daily, A-fib with RVR Resume anticoagulation once cleared by primary team and cardiology History of left nephrectomy Creatinine stable at 0.71 Hypothyroidism Continue with levothyroxine 88 mcg p.o. 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 status post brain calling followed by stenting Stable DVT prophylaxis: As per CT surgery patient is on subcu heparin Objective - Vital Signs Vital signs: Vital Signs Temp 93.4 F L 03/16/24 15:00 Pulse 74 03/16/24 15:15 Resp 16 03/16/24 15:15 BP 113/67 03/16/24 05:55 Pulse Ox 100 03/16/24 15:15 FiO2 50 03/16/24 15:34 Intake & Output 03/15/24 03/16/24 03/16/24 18:59 06:59 18:59 Intake Total 1224.847 200 333 Output Total 1150 Balance 1224.847 200 -817 Weight 66.9 kg Intake: IV 200 53 Intake, IV Titration 208.847 Amount Heparin Sod,Pork in 0.45% 208.847 NaCl 25,000 unit In 0.45 % NaCl 1 250ml.bag @ 12 UNITS/KG/HR 8.136 mls/hr IV .Q24H [facility] Rx#: [id number] Oral 1016 Blood Product 280 Rc Pheresis 2 As3 Unit 280 [id number] Output: Urine 575 Estimated Blood Loss 575 Other: Voiding Method Toilet Toilet # Voids 1 1 ABP, PAP, CO, CI - Last Documented Arterial Blood Pressure 119/51 Pulmonary Artery Pressure 20/11 Cardiac Output 2.8 Cardiac Index 1.6 - Labs CBC & Chem 7: 03/16/24 14:58 03/16/24 14:58 Labs: Abnormal Lab Results - Last 24 Hours (Table) 03/15/24 03/16/24 03/16/24 Range/Units 06:24 06:12 06:12 RBC (3.80-5.40) m/uL Hgb (11.4-16.0) gm/dL Hct (34.0-46.0) % Plt Count (150-450) k/uL PT (10.0-12.5) sec INR (<1.2) APTT 32.9 H (22.0-30.0) sec ABG pH (7.35-7.45) ABG pCO2 (35-45) mmHg ABG pO2 (83-108) mmHg ABG HCO3 (21-25) mmol/L ABG O2 Saturation (94-97) % ABG Hematocrit (34.0-46.0) % ABG Potassium (3.4-4.5) mmol/L ABG Ionized Calcium (4.5-5.3) mg/dL ABG Glucose (75-99) mg/dL Hemoglobin (11.4-16.0) gm/dL Chloride 114 H (98-107) mmol/L Carbon Dioxide 20 L (22-30) mmol/L BUN 20 H (7-17) mg/dL Glucose (74-99) mg/dL POC Glucose (mg/dL) (70-110) mg/dL Ionized Calcium Mario (4.5-5.3) mg/dL ALT 42 H (4-34) U/L Alkaline Phosphatase (38-126) U/L Total Protein (6.3-8.2) g/dL Albumin (3.5-5.0) g/dL Arterial Blood Potassium (3.4-4.5) mmol/L Arterial Blood Glucose (75-99) mg/dL Crossmatch See Detail 03/16/24 03/16/24 03/16/24 Range/Units 08:33 08:33 08:40 RBC (3.80-5.40) m/uL Hgb (11.4-16.0) gm/dL Hct (34.0-46.0) % Plt Count (150-450) k/uL PT (10.0-12.5) sec INR (<1.2) APTT (22.0-30.0) sec ABG pH 7.28 L (7.35-7.45) ABG pCO2 32 L (35-45) mmHg ABG pO2 310 H 291 H 270 H (83-108) mmHg ABG HCO3 20 L 20 L (21-25) mmol/L ABG O2 Saturation 98.7 H 98.7 H 98.8 H (94-97) % ABG Hematocrit 27 L 22 L 32 L (34.0-46.0) % ABG Potassium 5.0 H (3.4-4.5) mmol/L ABG Ionized Calcium 5.4 H (4.5-5.3) mg/dL ABG Glucose 106 H 144 H (75-99) mg/dL Hemoglobin 8.8 L 7.3 L 10.3 L (11.4-16.0) gm/dL Chloride (98-107) mmol/L Carbon Dioxide (22-30) mmol/L BUN (7-17) mg/dL Glucose (74-99) mg/dL POC Glucose (mg/dL) (70-110) mg/dL Ionized Calcium Mario (4.5-5.3) mg/dL ALT (4-34) U/L Alkaline Phosphatase (38-126) U/L Total Protein (6.3-8.2) g/dL Albumin (3.5-5.0) g/dL Arterial Blood Potassium 5.0 H (3.4-4.5) mmol/L Arterial Blood Glucose 106 H 144 H (75-99) mg/dL Crossmatch 03/16/24 03/16/24 03/16/24 Range/Units 10:49 11:56 12:22 RBC (3.80-5.40) m/uL Hgb (11.4-16.0) gm/dL Hct (34.0-46.0) % Plt Count (150-450) k/uL PT (10.0-12.5) sec INR (<1.2) APTT (22.0-30.0) sec ABG pH 7.47 H (7.35-7.45) ABG pCO2 34 L 31 L (35-45) mmHg ABG pO2 306 H 291 H 297 H (83-108) mmHg ABG HCO3 20 L (21-25) mmol/L ABG O2 Saturation 98.8 H 98.8 H 98.7 H (94-97) % ABG Hematocrit 24 L 22 L 22 L (34.0-46.0) % ABG Potassium 4.6 H (3.4-4.5) mmol/L ABG Ionized Calcium (4.5-5.3) mg/dL ABG Glucose 102 H 109 H 117 H (75-99) mg/dL Hemoglobin 7.7 L 7.0 L* 7.2 L (11.4-16.0) gm/dL Chloride (98-107) mmol/L Carbon Dioxide (22-30) mmol/L BUN (7-17) mg/dL Glucose (74-99) mg/dL POC Glucose (mg/dL) (70-110) mg/dL Ionized Calcium Mario (4.5-5.3) mg/dL ALT (4-34) U/L Alkaline Phosphatase (38-126) U/L Total Protein (6.3-8.2) g/dL Albumin (3.5-5.0) g/dL Arterial Blood Potassium 4.6 H (3.4-4.5) mmol/L Arterial Blood Glucose 102 H 109 H 117 H (75-99) mg/dL Crossmatch 03/16/24 03/16/24 03/16/24 Range/Units 13:55 14:57 14:58 RBC 2.70 L (3.80-5.40) m/uL Hgb 8.2 L D (11.4-16.0) gm/dL Hct 23.7 L (34.0-46.0) % Plt Count 111 L D (150-450) k/uL PT (10.0-12.5) sec INR (<1.2) APTT (22.0-30.0) sec ABG pH 7.32 L (7.35-7.45) ABG pCO2 (35-45) mmHg ABG pO2 253 H (83-108) mmHg ABG HCO3 (21-25) mmol/L ABG O2 Saturation 98.7 H (94-97) % ABG Hematocrit 26 L (34.0-46.0) % ABG Potassium (3.4-4.5) mmol/L ABG Ionized Calcium 5.5 H (4.5-5.3) mg/dL ABG Glucose 147 H (75-99) mg/dL Hemoglobin 8.3 L (11.4-16.0) gm/dL Chloride (98-107) mmol/L Carbon Dioxide (22-30) mmol/L BUN (7-17) mg/dL Glucose (74-99) mg/dL POC Glucose (mg/dL) 119 H (70-110) mg/dL Ionized Calcium Mario (4.5-5.3) mg/dL ALT (4-34) U/L Alkaline Phosphatase (38-126) U/L Total Protein (6.3-8.2) g/dL Albumin (3.5-5.0) g/dL Arterial Blood Potassium (3.4-4.5) mmol/L Arterial Blood Glucose 147 H (75-99) mg/dL Crossmatch 03/16/24 03/16/24 03/16/24 Range/Units 14:58 14:58 15:23 RBC (3.80-5.40) m/uL Hgb (11.4-16.0) gm/dL Hct (34.0-46.0) % Plt Count (150-450) k/uL PT 14.6 H (10.0-12.5) sec INR 1.4 H (<1.2) APTT 40.9 H (22.0-30.0) sec ABG pH (7.35-7.45) ABG pCO2 33 L (35-45) mmHg ABG pO2 300 H (83-108) mmHg ABG HCO3 20 L (21-25) mmol/L ABG O2 Saturation 99.9 H (94-97) % ABG Hematocrit (34.0-46.0) % ABG Potassium (3.4-4.5) mmol/L ABG Ionized Calcium (4.5-5.3) mg/dL ABG Glucose (75-99) mg/dL Hemoglobin 7.5 L (11.4-16.0) gm/dL Chloride 117 H (98-107) mmol/L Carbon Dioxide 20 L (22-30) mmol/L BUN (7-17) mg/dL Glucose 109 H (74-99) mg/dL POC Glucose (mg/dL) (70-110) mg/dL Ionized Calcium Mario 5.4 H (4.5-5.3) mg/dL ALT (4-34) U/L Alkaline Phosphatase 27 L (38-126) U/L Total Protein 4.2 L (6.3-8.2) g/dL Albumin 2.9 L (3.5-5.0) g/dL Arterial Blood Potassium (3.4-4.5) mmol/L Arterial Blood Glucose (75-99) mg/dL Crossmatch
[2024-03-16] MEDS: INSULIN REGULAR 100 UNIT in SODIUM CHLORIDE 0.9% 100 ML IV SCH (16:42)
--- NOTE | 2024-03-16 16:45 | P.PN ---
Subjective Progress Note Date: 03/09/24 Principal diagnosis: Coronary artery disease. Patient is a 68-year-old female with past medical history significant for brain aneurysm with previous coiling and stent, hypertension, hyperlipidemia, left subclavian stenosis, previous left-sided nephrectomy, hypothyroidism, Mnire's disease, generalized anxiety disorder, and former tobacco dependence. Patient denies any pre-existing lung disease. She does have significant smoking history, smoked 1 pack/day for over 30 years. Patient's primary care provider is marixa Orta out of Dr. Carranza's office. Patient presented to the emergency department back on March 09 with chest pain. Apparently, earlier that morning she was awoken with sudden onset substernal chest pain/tightness. She initially thought this was a anxiety attack as she does have a history of anxiety. No nausea, diaphoresis, shortness of breath. 30 minutes later, the feeling did not subside's, so she did call EMS. Patient did reportedly have a transient episode of A-fib RVR in route to the hospital. Patient was admitted with a diagnosis of non-ST elevation AK. Heart catheterization performed 03/10/2024 demonstrating severe three-vessel coronary artery disease with significant disease involvment of the proximal LAD, demonstrating 60 to 70% , left circumflex artery with 70% stenosis. and 90% stenosis of a nondominant RCA. Follow-up echocardiogram preserved left ventricular ejection fraction of 55 to 60%. No significant valvular abnormalities reported. Cardiothoracic surgery was consulted, patient is scheduled for surgical revascularization tomorrow morning. We were consulted for preoperative pulmonary clearance ventilator management following the procedure. As stated above, patient has no diagnosed history of pre-existing lung disease. She does have significant smoking history over [id number]. Patient did have bedside spirometry which showed an FEV1 2.35 L or 99% of predicted. Chest CTA done on arrival did not show any evidence of pulmonary emboli. There was evidence of mild emphysematous changes. Biapical scarring. Few borderline mildly enlarged lymph nodes in the hilum measuring 1.2 cm. Otherwise no acute findings. Most recent CBC done yesterday with a WBC count 8.4, hemoglobin 14.1, hematocrit 43.2, platelets 251. aPTT currently therapeutic at 67.7. BMP from yesterday: Sodium 140, potassium 4.3, chloride 110, serum bicarb 21, BUN 22, creatinine 0.93, glucose 93. Patient is currently walking the halls on room air. She has no respiratory distress. No current chest pain. Does have normal saline infusing at 50 mL/h. Also, heparin is infusion per protocol. Surgery is scheduled for tomorrow morning. Progress note dated March 16, 2024. 68-year-old female seen in consultation yesterday. Please see the note above. The patient had a off-pump four-vessel bypass surgery done today by Dr. Conklin. Please refer to the operative note. The patient is currently on the ventilator. Ventilator settings include volume assist-control, rate 16, tidal volume 400, FiO2 50%, and PEEP of 5. Blood gases on same settings, with FiO2 of 100%, showed a pO2 of 300, pCO2 of 33, and a pH of 7.399. The patient is on nitroglycerin at 5 mcg/min, propofol at 40 mcg/kg/min, 0.9 at 50 cc an hour, and amiodarone per protocol. In addition, the patient be started on an insulin drip at 1.5 units an hour. The patient's cardiac output is 3.3, and the index is 1.9. Pulmonary artery pressures 27/13. Current labs include a white count 7.9, hemoglobin 8.2, hematocrit 23.7, and a platelet count of 111,000. Sodium 141, potassium 4, chlorides 117, CO2 20, BUN 16, creatinine 0.71. Glucose is 151. Chest x-ray reveals an endotracheal tube, which is 5 cm above the tracheal jaki. There is a left-sided chest tube present. There is a mediastinal tube in the midline. Nasogastric tube was also noted, as well as a [place]-Rae catheter. There are some bibasilar atelectasis, and a small right apical pneumothorax. Objective - Vital Signs Vital signs: Vital Signs Temp 93.4 F L 03/16/24 15:00 Pulse 74 03/16/24 15:15 Resp 16 03/16/24 15:15 BP 113/67 03/16/24 05:55 Pulse Ox 100 03/16/24 15:15 FiO2 50 03/16/24 15:34 Intake & Output 03/15/24 03/16/24 03/16/24 18:59 06:59 18:59 Intake Total 1224.847 200 333 Output Total 1150 Balance 1224.847 200 -817 Weight 66.9 kg Intake: IV 200 53 Intake, IV Titration 208.847 Amount Heparin Sod,Pork in 0.45% 208.847 NaCl 25,000 unit In 0.45 % NaCl 1 250ml.bag @ 12 UNITS/KG/HR 8.136 mls/hr IV .Q24H [facility] Rx#: [id number] Oral 1016 Blood Product 280 Rc Pheresis 2 As3 Unit 280 [id number] Output: Urine 575 Estimated Blood Loss 575 Other: Voiding Method Toilet Toilet # Voids 1 1 ABP, PAP, CO, CI - Last Documented Arterial Blood Pressure 119/51 Pulmonary Artery Pressure 20/11 Cardiac Output 2.8 Cardiac Index 1.6 - Exam No acute distress, sedated and ventilated, with an orally placed endotracheal tube. HEENT examination is grossly unremarkable. Neck supple. Full range of motion. No adenopathy thyromegaly or neck vein distention. Cardiovascular examination reveals regular rhythm rate. S1-S2 normal. No S3 or S4. No discernible murmur noted. Lungs reveal clear breath sounds. Breath sounds are equal bilaterally. No adventitious lung sounds including wheezes rhonchi or crackles. Abdomen soft bowel sounds. No masses. Extremities are intact. No cyanosis clubbing or edema. Skin is without rash or lesion. Neurologic examination reevaluated at this time. - Labs CBC & Chem 7: 03/16/24 14:58 03/16/24 14:58 Labs: Abnormal Lab Results - Last 24 Hours (Table) 03/15/24 03/16/24 03/16/24 Range/Units 06:24 06:12 06:12 RBC (3.80-5.40) m/uL Hgb (11.4-16.0) gm/dL Hct (34.0-46.0) % Plt Count (150-450) k/uL PT (10.0-12.5) sec INR (<1.2) APTT 32.9 H (22.0-30.0) sec ABG pH (7.35-7.45) ABG pCO2 (35-45) mmHg ABG pO2 (83-108) mmHg ABG HCO3 (21-25) mmol/L ABG O2 Saturation (94-97) % ABG Hematocrit (34.0-46.0) % ABG Potassium (3.4-4.5) mmol/L ABG Ionized Calcium (4.5-5.3) mg/dL ABG Glucose (75-99) mg/dL Hemoglobin (11.4-16.0) gm/dL Chloride 114 H (98-107) mmol/L Carbon Dioxide 20 L (22-30) mmol/L BUN 20 H (7-17) mg/dL Glucose (74-99) mg/dL POC Glucose (mg/dL) (70-110) mg/dL Ionized Calcium Mario (4.5-5.3) mg/dL ALT 42 H (4-34) U/L Alkaline Phosphatase (38-126) U/L Total Protein (6.3-8.2) g/dL Albumin (3.5-5.0) g/dL Arterial Blood Potassium (3.4-4.5) mmol/L Arterial Blood Glucose (75-99) mg/dL Crossmatch See Detail 03/16/24 03/16/24 03/16/24 Range/Units 08:33 08:33 08:40 RBC (3.80-5.40) m/uL Hgb (11.4-16.0) gm/dL Hct (34.0-46.0) % Plt Count (150-450) k/uL PT (10.0-12.5) sec INR (<1.2) APTT (22.0-30.0) sec ABG pH 7.28 L (7.35-7.45) ABG pCO2 32 L (35-45) mmHg ABG pO2 310 H 291 H 270 H (83-108) mmHg ABG HCO3 20 L 20 L (21-25) mmol/L ABG O2 Saturation 98.7 H 98.7 H 98.8 H (94-97) % ABG Hematocrit 27 L 22 L 32 L (34.0-46.0) % ABG Potassium 5.0 H (3.4-4.5) mmol/L ABG Ionized Calcium 5.4 H (4.5-5.3) mg/dL ABG Glucose 106 H 144 H (75-99) mg/dL Hemoglobin 8.8 L 7.3 L 10.3 L (11.4-16.0) gm/dL Chloride (98-107) mmol/L Carbon Dioxide (22-30) mmol/L BUN (7-17) mg/dL Glucose (74-99) mg/dL POC Glucose (mg/dL) (70-110) mg/dL Ionized Calcium Mario (4.5-5.3) mg/dL ALT (4-34) U/L Alkaline Phosphatase (38-126) U/L Total Protein (6.3-8.2) g/dL Albumin (3.5-5.0) g/dL Arterial Blood Potassium 5.0 H (3.4-4.5) mmol/L Arterial Blood Glucose 106 H 144 H (75-99) mg/dL Crossmatch 03/16/24 03/16/24 03/16/24 Range/Units 10:49 11:56 12:22 RBC (3.80-5.40) m/uL Hgb (11.4-16.0) gm/dL Hct (34.0-46.0) % Plt Count (150-450) k/uL PT (10.0-12.5) sec INR (<1.2) APTT (22.0-30.0) sec ABG pH 7.47 H (7.35-7.45) ABG pCO2 34 L 31 L (35-45) mmHg ABG pO2 306 H 291 H 297 H (83-108) mmHg ABG HCO3 20 L (21-25) mmol/L ABG O2 Saturation 98.8 H 98.8 H 98.7 H (94-97) % ABG Hematocrit 24 L 22 L 22 L (34.0-46.0) % ABG Potassium 4.6 H (3.4-4.5) mmol/L ABG Ionized Calcium (4.5-5.3) mg/dL ABG Glucose 102 H 109 H 117 H (75-99) mg/dL Hemoglobin 7.7 L 7.0 L* 7.2 L (11.4-16.0) gm/dL Chloride (98-107) mmol/L Carbon Dioxide (22-30) mmol/L BUN (7-17) mg/dL Glucose (74-99) mg/dL POC Glucose (mg/dL) (70-110) mg/dL Ionized Calcium Mario (4.5-5.3) mg/dL ALT (4-34) U/L Alkaline Phosphatase (38-126) U/L Total Protein (6.3-8.2) g/dL Albumin (3.5-5.0) g/dL Arterial Blood Potassium 4.6 H (3.4-4.5) mmol/L Arterial Blood Glucose 102 H 109 H 117 H (75-99) mg/dL Crossmatch 03/16/24 03/16/24 03/16/24 Range/Units 13:55 14:57 14:58 RBC 2.70 L (3.80-5.40) m/uL Hgb 8.2 L D (11.4-16.0) gm/dL Hct 23.7 L (34.0-46.0) % Plt Count 111 L D (150-450) k/uL PT (10.0-12.5) sec INR (<1.2) APTT (22.0-30.0) sec ABG pH 7.32 L (7.35-7.45) ABG pCO2 (35-45) mmHg ABG pO2 253 H (83-108) mmHg ABG HCO3 (21-25) mmol/L ABG O2 Saturation 98.7 H (94-97) % ABG Hematocrit 26 L (34.0-46.0) % ABG Potassium (3.4-4.5) mmol/L ABG Ionized Calcium 5.5 H (4.5-5.3) mg/dL ABG Glucose 147 H (75-99) mg/dL Hemoglobin 8.3 L (11.4-16.0) gm/dL Chloride (98-107) mmol/L Carbon Dioxide (22-30) mmol/L BUN (7-17) mg/dL Glucose (74-99) mg/dL POC Glucose (mg/dL) 119 H (70-110) mg/dL Ionized Calcium Mario (4.5-5.3) mg/dL ALT (4-34) U/L Alkaline Phosphatase (38-126) U/L Total Protein (6.3-8.2) g/dL Albumin (3.5-5.0) g/dL Arterial Blood Potassium (3.4-4.5) mmol/L Arterial Blood Glucose 147 H (75-99) mg/dL Crossmatch 03/16/24 03/16/24 03/16/24 Range/Units 14:58 14:58 15:23 RBC (3.80-5.40) m/uL Hgb (11.4-16.0) gm/dL Hct (34.0-46.0) % Plt Count (150-450) k/uL PT 14.6 H (10.0-12.5) sec INR 1.4 H (<1.2) APTT 40.9 H (22.0-30.0) sec ABG pH (7.35-7.45) ABG pCO2 33 L (35-45) mmHg ABG pO2 300 H (83-108) mmHg ABG HCO3 20 L (21-25) mmol/L ABG O2 Saturation 99.9 H (94-97) % ABG Hematocrit (34.0-46.0) % ABG Potassium (3.4-4.5) mmol/L ABG Ionized Calcium (4.5-5.3) mg/dL ABG Glucose (75-99) mg/dL Hemoglobin 7.5 L (11.4-16.0) gm/dL Chloride 117 H (98-107) mmol/L Carbon Dioxide 20 L (22-30) mmol/L BUN (7-17) mg/dL Glucose 109 H (74-99) mg/dL POC Glucose (mg/dL) (70-110) mg/dL Ionized Calcium Mario 5.4 H (4.5-5.3) mg/dL ALT (4-34) U/L Alkaline Phosphatase 27 L (38-126) U/L Total Protein 4.2 L (6.3-8.2) g/dL Albumin 2.9 L (3.5-5.0) g/dL Arterial Blood Potassium (3.4-4.5) mmol/L Arterial Blood Glucose (75-99) mg/dL Crossmatch 03/16/24 Range/Units 16:19 RBC (3.80-5.40) m/uL Hgb (11.4-16.0) gm/dL Hct (34.0-46.0) % Plt Count (150-450) k/uL PT (10.0-12.5) sec INR (<1.2) APTT (22.0-30.0) sec ABG pH (7.35-7.45) ABG pCO2 (35-45) mmHg ABG pO2 (83-108) mmHg ABG HCO3 (21-25) mmol/L ABG O2 Saturation (94-97) % ABG Hematocrit (34.0-46.0) % ABG Potassium (3.4-4.5) mmol/L ABG Ionized Calcium (4.5-5.3) mg/dL ABG Glucose (75-99) mg/dL Hemoglobin (11.4-16.0) gm/dL Chloride (98-107) mmol/L Carbon Dioxide (22-30) mmol/L BUN (7-17) mg/dL Glucose (74-99) mg/dL POC Glucose (mg/dL) 151 H (70-110) mg/dL Ionized Calcium Mario (4.5-5.3) mg/dL ALT (4-34) U/L Alkaline Phosphatase (38-126) U/L Total Protein (6.3-8.2) g/dL Albumin (3.5-5.0) g/dL Arterial Blood Potassium (3.4-4.5) mmol/L Arterial Blood Glucose (75-99) mg/dL Crossmatch Assessment and Plan Assessment: Postop day #0, status post off-pump four-vessel bypass surgery. Routine postoperative ventilator management. Acute non-ST segment elevation myocardial infarction. Multivessel coronary artery disease. Transient episode of atrial fibrillation. History of hypertension. History of hyperlipidemia. History of left subclavian stenosis. History of brain aneurysm, status post coiling 2018, and stenting, 2019. History of of left-sided nephrectomy. History of Mnire's disease. Hypothyroidism. Generalized anxiety disorder. Former tobacco dependence. Plan: Plan dated March 16, 2024. The patient is seen today in room 264. The patient just arrived back from the operating room the patient continues on the mechanical ventilator. Initial settings include volume assist-control, rate 16, tidal volume 400, FiO2 100%, and PEEP of 5. Blood gases showed a pO2 of 300, pCO2 of 33, and a pH of 7.399. The FiO2 was reduced down to 50%. The patient is on nitroglycerin at 5 mcg/min, propofol at 40 mcg/kg/min, saline at 50 cc an hour, and an insulin drip at 1.5 units an hour. The patient is also receiving amiodarone via protocol. The patient's cardiac output was 3.3 with an index of 1.9. Labs, x-rays, and all medications are reviewed. We will continue to follow. We will work towards an early extubation if possible. Time with Patient: Greater than 30
[2024-03-16] MEDS: IPRATROPIUM-ALBUTEROL 3 ML NEB INHALATION SCH (17:10)
[2024-03-16] MEDS: ACETAMINOPHEN IV (For NPO) 1,000 MG in EMPTY BAG 1 BAG IVPB SCH (17:57)
[2024-03-16 18:05] LABS: Glucose,Whole Blood 142 mg/dL (70-110)
--- NOTE | 2024-03-16 18:25 | P.OP ---
Date of Procedure: 03/16/24 Preoperative Diagnosis: Subendocardial myocardial infarction, coronary artery disease, paroxysmal atrial fibrillation, left subclavian artery stenosis Postoperative Diagnosis: Same Procedure(s) Performed: Off-pump myocardial revascularization with coronary artery bypass grafting x 4 including free MONZON sequentially to diagonal and LAD, left radial artery graft to posterior lateral branch of the circumflex coronary artery, saphenous vein graft to the first obtuse marginal coronary artery. Endovascular vein harvest of the greater saphenous vein from the right lower extremity from mid calf to groin. Endovascular harvest of the left radial artery. Modified Morgan-Maze procedure with bilateral pulmonary vein ablation and ligation of the left atrial appendage with a 40 mm AtriCure clip. Implants: 40 mm AtriCure clip Anesthesia: MARITZA Surgeon: Pedrito Conklin Saxophone Player #1: Kp Artis Saxophone Player #2: Sanam Lawrence Estimated Blood Loss (ml): 550 IV fluids (ml): 2,000 Urine output (ml): 700 Pathology: none sent Condition: stable Disposition: ICU Indications for Procedure: 68-year-old patient with known left subclavian stenosis presents with chest pain and subendocardial infarction. Cardiac catheterization demonstrated severe coronary artery disease with a nondominant right coronary artery, significant stenosis in the proximal LAD and circumflex coronary arteries. Patient was on chronic Plavix and this had to be held prior to performing her surgery. Operative Findings: Saphenous vein was a less than ideal conduit. It was extremely thin-walled and of varying dimensions with varicose segments. Radial artery and internal mammary artery grafts were good conduits although the left internal mammary artery could not be used as a pedicle graft because of proximal subclavian stenosis on the left. SAI demonstrated normal ventricular function with no significant valvular heart disease and this was unchanged on completion of the procedure. The patient did not have any episodes of atrial fibrillation during the case. Description of Procedure: Patient was brought to the operating room and placed supine on the operating table. Monitoring lines have been placed in the preop holding area. General anesthesia was induced and SAI probe was placed following endotracheal intubation. Anterior torso and bilateral lower extremities were sterilely prepped and draped in standard fashion. Greater saphenous vein was harvested from the right lower extremity using endoscopic vein harvest technique. The left radial artery was harvested using endoscopic technique and on completion the arm was dressed and wrapped in tucked at the side. Midline sternotomy was performed the left hemisternum was retracted upwards and the left internal mammary artery was harvested on a vascularized pedicle. It was divided both proximally and distally and flushed with heparinized saline and left to soak in a papaverine bath. Standard sternal retractor was placed and a [place] chest tube was placed to the left pleural space. Pericardium was opened in the midline and the heart was exposed with pericardial sutures. The patient was systemically heparinized and ACT's were maintained greater than 250 during grafting. Once dissection was carried out around the right-sided pulmonary veins, they were encircled and the left atrium was ablated with multiple firings of an AtriCure RF clamp. We then encircled the left pulmonary veins and ablated the left atrium at the insertion of the left pulmonary veins again with multiple firings of the AtriCure RF clamp. 40 mm AtriCure clip was placed on the left atrial appendage. It was placed at the base and successfully occluded the appendage without a stump by SAI criteria. During this procedure the tip of the left atrial appendage was torn and it was sewn shut with a 4-0 pledgeted Prolene suture. A heartstring device was deployed in the mid ascending aorta to the left of midline to a 4 mm punch hole in the ascending aorta. Proximal anastomosis of the saphenous vein to the ascending aorta was performed with running 5-0 Prolene suture. A segment of vein was utilized that was free of any varices and was consistent in its diameter. On completion of the anastomosis, the heartstring device was removed and the suture was tied with good result and hemostasis. There was excellent flow through the vein graft controlled with a bulldog clamp. We placed a second bulldog clamp proximally on the vein graft right at its takeoff and made a longitudinal incision in the vein graft just distal to this. The internal mammary artery was anastomosed to the vein graft with running 8-0 Prolene suture. On removing the proximal bulldog clamp we had excellent flow through the MONZON controlled with a bulldog clamp. We now planned out a sequential anastomosis of the MONZON to the diagonal and to the mid LAD. We began with the [id number] graft between the MONZON and the diagonal. The diagonal was a 1.5 mm vessel. Was opened longitudinally and blood flow controlled with a 1.5 mm flow-through. Anastomosis was constructed with running 8-0 Prolene suture. On completion of the anastomosis, flow through was removed effectively probing the proximal distal portion of the anastomosis. Bulldog clamp was removed proximally and placed distally. There was excellent flow through the end of the MONZON prior to replacing the bulldog clamp. Hemostasis was good at the anastomotic site and the CAIN pedicle was tacked surrounding epicardium with 6-0 silk sutures. Next we performed the distal anastomosis of the MONZON to the LAD. The LAD was opened in its midportion. Blood flow was controlled with a 2 mm flow-through. Anastomosis of the MONZON to the LAD was performed with running 8-0 Prolene suture. On completion of the anastomosis, flow through was removed effectively probing the proximal distal portion of the anastomosis. Suture was tied with good resultant hemostasis. Next the high obtuse marginal was visualized and stabilized. It was opened longitudinally. Vein was cut to appropriate length and anastomosed to the high OM. Blood flow was controlled with a 2 mm flow-through. On completion of the anastomosis with 7-0 Prolene, flow-through was removed effectively probing the proximal distal portion of the anastomosis. Suture was tied with good resultant hemostasis. Inflow was opened and the graft was noted to lay well. Now the inferior lateral portion of the heart was exposed. The posterior lateral artery was identified and stabilized proximally. It was opened and blood flow controlled with a 1.5 mm flow-through. It was a 1.5 mm vessel. Left radial artery was anastomosed in an inside fashion with running 7-0 Prolene suture. On completion of the anastomosis the flow through was removed effectively probing the proximal distal portion of the anastomosis. Suture was tied with good resultant hemostasis. The radial was brought to the left of the base of the heart and up into the vein graft to the first OM. Bulldog clamps were placed on the vein graft proximally and distally and it was opened longitudinally just distal to the anastomosis to the MONZON. Proximal anastomosis of the radial was taken off the saphenous vein graft here performed with running 7-0 Prolene suture. On completion the anastomosis was de-aired by backbleeding and the inflow open. All grafts were noted to lay well with good hemostatic anastomoses. The heart was lowered in anatomic position. Heparin was reversed with protamine. Good hemostasis was obtained throughout. Mediastinum was drained with [place] chest tubes. It was irrigated with antibiotic solution. After assuring good hemostasis, sternum was closed with 8 sternal wires. Fascia was closed with 0 Ethibond. Subcutaneous and subcuticular layers and the leg arm and chest were all closed with layers of Vicryl suture. Patient was transferred to the ICU in stable condition. She did receive 1 unit of packed red blood cells for stanton hematocrit of 21. She did not require any inotropic support.
[2024-03-16 18:32] LABS: Basophils % (A) 0 %; Eosinophils % (A) 0 %; HCT 20.5 % (34.0-46.0); Lymphocytes # (A) 0.7 k/uL (1.0-4.8); Lymphocytes % (A) 8 %; MCH 29.9 pg (25.0-35.0); MCHC 33.5 g/dL (31.0-37.0); MCV 89.1 fL (80.0-100.0); Mean Platelet Volume 7.7; Monocytes # (A) 0.6 k/uL (0-1.0); Monocytes % (A) 7 %; Neutrophils # (A) 6.8 k/uL (1.3-7.7); Neutrophils % (A) 84 %; Platelet Count 105 k/uL (150-450); WBC 8.2 k/uL (3.8-10.6)
[2024-03-16 18:35] LABS: HGB 6.9 gm/dL (11.4-16.0)
[2024-03-16 19:00] LABS: Glucose,Whole Blood 118 mg/dL (70-110)
[2024-03-16 19:57] LABS: Glucose,Whole Blood 126 mg/dL (70-110)
[2024-03-16] MEDS: SENNOSIDES-DOCUSATE SODIUM 1 EACH TAB PO SCH (20:32)
[2024-03-16 21:06] LABS: Glucose,Whole Blood 157 mg/dL (70-110)
[2024-03-16 21:10] LABS: Basophils % (A) 0 %; Eosinophils % (A) 0 %; HCT 24.6 % (34.0-46.0); HGB 8.2 gm/dL (11.4-16.0); Lymphocytes # (A) 0.8 k/uL (1.0-4.8); Lymphocytes % (A) 8 %; MCH 29.7 pg (25.0-35.0); MCHC 33.3 g/dL (31.0-37.0); MCV 89.3 fL (80.0-100.0); Monocytes # (A) 0.8 k/uL (0-1.0); Monocytes % (A) 8 %; Neutrophils # (A) 8.4 k/uL (1.3-7.7); Neutrophils % (A) 83 %; Platelet Count 107 k/uL (150-450); RBC 2.76 m/uL (3.80-5.40); RDW 13.9 % (11.5-15.5); WBC 10.1 k/uL (3.8-10.6)
[2024-03-16] MEDS: AMIODARONE 450 MG in DEXTROSE 5% IN WATER 250 ML IV SCH (21:19)
[2024-03-16] MEDS: MUPIROCIN 2% OINT 22 GM TUBE NASAL SCH (21:55)
[2024-03-16 22:01] LABS: Glucose,Whole Blood 147 mg/dL (70-110)
[2024-03-16 22:58] LABS: Glucose,Whole Blood 140 mg/dL (70-110)
[2024-03-17 00:09] LABS: Glucose,Whole Blood 134 mg/dL (70-110)
[2024-03-17 01:27] LABS: Glucose,Whole Blood 129 mg/dL (70-110)
[2024-03-17 02:12] LABS: Glucose,Whole Blood 129 mg/dL (70-110)
[2024-03-17 03:10] LABS: Glucose,Whole Blood 146 mg/dL (70-110)
[2024-03-17 04:16] LABS: Glucose,Whole Blood 152 mg/dL (70-110)
[2024-03-17 04:41] LABS: Basophils % (A) 0 %; Eosinophils % (A) 0 %; HCT 20.1 % (34.0-46.0); Lymphocytes # (A) 0.4 k/uL (1.0-4.8); Lymphocytes % (A) 5 %; MCH 29.8 pg (25.0-35.0); MCHC 34.2 g/dL (31.0-37.0); MCV 87.2 fL (80.0-100.0); Mean Platelet Volume 10.2; Monocytes # (A) 0.6 k/uL (0-1.0); Monocytes % (A) 7 %; Neutrophils # (A) 6.5 k/uL (1.3-7.7); Neutrophils % (A) 86 %; Platelet Count 128 k/uL (150-450); RBC 2.31 m/uL (3.80-5.40); RDW 14.5 % (11.5-15.5); WBC 7.5 k/uL (3.8-10.6)
[2024-03-17 04:58] LABS: HGB 6.9 gm/dL (11.4-16.0)
[2024-03-17 05:09] LABS: Ionized Calcium 4.5 mg/dL (4.5-5.3)
[2024-03-17 05:17] LABS: Glucose,Whole Blood 140 mg/dL (70-110)
[2024-03-17 05:18] LABS: ALT 15 U/L (4-34); AST 29 U/L (14-36); African American GFR (CKD) >90 (>60 ml/min/1.73 sqM); Albumin 3.4 g/dL (3.5-5.0); Alkaline Phosphatase 30 U/L (38-126); Anion Gap 8 mmol/L; Blood Urea Nitrogen 13 mg/dL (7-17); Calcium 7.9 mg/dL (8.4-10.2); Carbon Dioxide 16 mmol/L (22-30); Chloride 115 mmol/L (98-107); Glucose 138 mg/dL (74-99); Non-African American GFR(CKD) 82 (>60 ml/min/1.73 sqM); Potassium 3.6 mmol/L (3.5-5.1); Sodium 139 mmol/L (137-145); Total Bilirubin 0.7 mg/dL (0.2-1.3); Total Protein 4.8 g/dL (6.3-8.2)
[2024-03-17] MEDS: POTASSIUM BICARBONATE/CIT AC 20 MEQ TABLET.EFF NG-TUBE SCH (05:50)
[2024-03-17 05:51] LABS: ABG Base Excess -6.8 mmol/L; ABG HCO3 18 mmol/L (21-25); ABG Oxygen Saturation 99.5 % (94-97); ABG PCO2 30 mmHg (35-45); ABG PH 7.38 (7.35-7.45); ABG PO2 138 mmHg (83-108); ABG TCO2 19 mmol/L (19-24); Allen Test Performed? Yes
[2024-03-17 06:09] LABS: Glucose,Whole Blood 133 mg/dL (70-110)
[2024-03-17 07:08] LABS: Glucose,Whole Blood 128 mg/dL (70-110)
[2024-03-17] MEDS: METOPROLOL TARTRATE 25 MG TAB PO SCH (07:50)
[2024-03-17] MEDS: amLODIPine 5 MG TAB PO SCH (07:50)
[2024-03-17] MEDS: SODIUM BICARB 8.4% 50 ML SYR (1 MEQ/ML) IV STA (07:51)
--- NOTE | 2024-03-17 07:56 | XR ---
EXAMINATION TYPE: XR chest 1V portable DATE OF EXAM: 03/17/2024 5:29 AM COMPARISON: 03/16/2024 CLINICAL INDICATION: Female, 68 years old with history of Post Operative Cardiac Surgery, TECHNIQUE: XR chest 1V portable view(s) obtained. FINDINGS: The heart size is normal. The pulmonary vasculature is normal. Some mild left lower lobe infiltrate may be present. Endotracheal tube tip is 5.2 cm above the jaki. Nasogastric tube transverses the thorax. [place]-Rae catheter is present with tip in the main pulmonary artery. Couple of mediastinal tubes are present. A left-sided chest tube is present. No pneumothorax evident. IMPRESSION: 1. Mild left lower lobe infiltrate. 2. Previous right apical pneumothorax not identified. 3. Multiple lines and catheters discussed above. [facility], , 03/17/2024 7:54 AM
[2024-03-17] MEDS: IPRATROPIUM-ALBUTEROL 3 ML NEB INHALATION SCH (07:59)
--- NOTE | 2024-03-17 07:59 | P.PN ---
Subjective Progress Note Date: 03/17/24 Principal diagnosis: Coronary artery disease, non-STEMI this admission, new onset atrial fibrillation. History of brain aneurysm with coiling in 2019 and stent in 2020, hypertension, hyperlipidemia, hypothyroid, asymptomatic left subclavian stenosis, left sided nephrectomy, right renal artery stenosis 60% on CTA in 2020, Mnire's disease, previous tobacco dependence, anxiety, family history of myocardial infarction in both her mother and her father POD#1 off-pump myocardial revascularization with coronary artery bypass grafting x 4 including free MONZON sequentially to diagonal and LAD, left radial artery graft to posterior lateral branch of the circumflex coronary artery, saphenous vein graft to the first obtuse marginal coronary artery. Endovascular vein harvest of the greater saphenous vein from the right lower extremity from mid calf to groin. Endovascular harvest of the left radial artery. Modified Morgan- Maze procedure with bilateral pulmonary vein ablation and ligation of the left atrial appendage with a 40 mm AtriCure clip Acute blood loss anemia and thrombocytopenia, somewhat expected given hemodilution The patient was seen and examined this morning laying in bed in the intensive care unit in no acute distress. She remains on mechanical ventilation, sedated with minimal propofol. Currently in sinus rhythm, hemodynamically stable, blood pressure a bit hypertensive as she was prior to surgery. She does open her eyes and follows all commands, nods and shakes her head appropriately to questions. She was kept intubated overnight due to increased chest tube output which has since slowed. She received 1 unit packed red blood cells intraop yesterday, 1 unit packed red blood cells along with 2 FFP, 1 platelet last night, currently third unit of packed red blood cells transfusing for hemoglobin 6.9 this morning. Labs, chest x-ray reviewed. Right internal jugular Asher/Cordis, right radial arterial line, mediastinal/left pleural chest tubes all remain. Currently on IV nitro for vessel spasm prophylaxis, IV amiodarone for A-fib prophylaxis. No other new concerns. Objective - Vital Signs Vital signs: Vital Signs Temp 98.6 F 03/17/24 05:45 Pulse 76 03/17/24 05:45 Resp 16 03/17/24 05:45 BP 157/47 03/17/24 05:45 Pulse Ox 98 03/17/24 05:45 FiO2 40 03/17/24 05:54 Intake & Output 03/16/24 03/17/24 03/17/24 18:59 06:59 18:59 Intake Total 7331.475 2631.327 Output Total 1670 1547 Balance 103.892 646.327 Weight 80.8 kg Intake: IV 169 1018 ACETAMINOPHEN IV (For NPO 100 ) 1,000 mg In Empty Bag 1 bag @ 400 mls/hr IVPB Q6HR [facility] Rx#:[id number] NS for cardiac output 80 310 NS for pressure lines 36 108 Sodium Chloride 0.9% 1, 500 000 ml @ 50 mls/hr IV . Q20H [facility] Rx#:[id number] Intake, IV Titration 1324.892 115.327 Amount ACETAMINOPHEN IV (For NPO 100 ) 1,000 mg In Empty Bag 1 bag @ 400 mls/hr IVPB Q6HR [facility] Rx#:[id number] Albumin Human 5% 250 ml 750 In Empty Bag 1 bag @ 250 mls/hr IVPB Q1HR PRN Rx#: [id number] Amiodarone 360 mg In 99.9 33.3 Dextrose 5% in Water 200 ml @ 1 MG/MIN 33.333 mls/ hr IV .Q6H ONE Rx#: [id number] Insulin Regular 100 unit 3.0 21.529 In Sodium Chloride 0.9% 100 ml @ Per Protocol IV .Q0M [facility] Rx#:[id number] Nitroglycerin-D5w Pmx 50 3.0 1.5 mg In Dextrose/Water 1 250ml.bag @ 5 MCG/MIN 1.5 mls/hr IV .Q24H [facility] Rx#: [id number] Sodium Chloride 0.9% 1, 200 50 000 ml @ 50 mls/hr IV . Q20H [facility] Rx#:[id number] ceFAZolin 2 gm In Sodium 50 Chloride 0.9% 50 ml @ 100 mls/hr IVPB Q8HR [facility] Rx# :[id number] propofoL 1,000 mg In 118.992 8.998 Empty Bag 1 bag @ Titrate IV .Q0M [facility] Rx#: [id number] Blood Product 280 1060 Ffp 24 Pher Acda Unit 200 [id number] Ffp 24 Pher Acda Cnt3 203 Unit [id number] Platelet Pheresis Pas 347 Psoralen Unit [id number] Rc As-1 Unit 310 [id number] Rc Pheresis 2 As3 Unit 0 [id number] Rc Pheresis 2 As3 Unit 280 [id number] Output: Chest Tube Drainage [address] 40 132 MSCT x 2 240 830 Drainage 60 Left Arm 20 Rt leg 40 Urine 755 585 Estimated Blood Loss 575 Other: Voiding Method Indwelling Catheter Indwelling Catheter ABP, PAP, CO, CI - Last Documented Arterial Blood Pressure 138/44 Pulmonary Artery Pressure 33/19 Cardiac Output 4.2 Cardiac Index 2.4 - Exam CONSTITUTIONAL: Remains mechanically ventilated, sedated in the intensive care unit, appears comfortable, cooperative, no acute distress RESPIRATORY: Lungs sounds diminished bilaterally. Respirations even, nonlabored. Currently on assist-control mode, FiO2 40%, PEEP 10, respiratory rate 16, tidal volume 400. 8.0 ET tube present, 22 at the lip. CARDIOVASCULAR: S1, S2 present. Regular rate and rhythm, sinus rhythm on telemetry. Sternum stable. Palpable peripheral pulses bilaterally. Trace g eneralized edema present. No calf pain or tenderness noted. Heart hugger, antiembolism stockings, SCDs present. GASTROINTESTINAL: Abdomen soft, nontender, nondistended. Hypoactive bowel sounds present 4 quadrants. OG tube present to low intermittent suction, coffee-ground drainage GENITOURINARY: Campos present draining clear, yellow urine. Output overnight 30-60 mL per hour INTEGUMENTARY: Skin is warm and dry. Anterior chest incision well approximated and covered with dry intact dressing. Left radial artery harvest site along with right lower extremity EVH site well approximated, ЮЛИЯ drains present with minimal drainage NEUROLOGIC: Cranial nerves II through XII intact MUSKULOSKELETAL: Able to move all extremities, strength equal bilaterally PSYCHIATRIC: Alert, following commands INVASIVE LINES AND TUBES: Mediastinal/left pleural chest tubes present and connected to wall suction, no air leaks present. Mediastinal tube with 270 mL serosanguineous drainage overnight, 1090 mL since surgery. Left pleural chest tube with 57 mL serosanguineous drainage overnight, 170 mL since surgery. Right internal jugular Asher/Cordis, right radial arterial line present. Last CO/CI 4.0/2.3, PA 27/16, CVP 12. - Allied health notes Allied health notes reviewed: nursing - Labs CBC & Chem 7: 03/17/24 04:15 03/17/24 04:15 Labs: Abnormal Lab Results - Last 24 Hours (Table) 03/15/24 03/16/24 03/16/24 Range/Units 06:24 06:12 08:33 RBC (3.80-5.40) m/uL Hgb (11.4-16.0) gm/dL Hct (34.0-46.0) % Plt Count (150-450) k/uL Neutrophils # (1.3-7.7) k/uL Lymphocytes # (1.0-4.8) k/uL PT (10.0-12.5) sec INR (<1.2) APTT (22.0-30.0) sec ABG pH 7.28 L (7.35-7.45) ABG pCO2 (35-45) mmHg ABG pO2 310 H (83-108) mmHg ABG HCO3 20 L (21-25) mmol/L ABG O2 Saturation 98.7 H (94-97) % ABG Hematocrit 27 L (34.0-46.0) % ABG Potassium 5.0 H (3.4-4.5) mmol/L ABG Ionized Calcium 5.4 H (4.5-5.3) mg/dL ABG Glucose 106 H (75-99) mg/dL Hemoglobin 8.8 L (11.4-16.0) gm/dL Chloride 114 H (98-107) mmol/L Carbon Dioxide 20 L (22-30) mmol/L BUN 20 H (7-17) mg/dL Glucose (74-99) mg/dL POC Glucose (mg/dL) (70-110) mg/dL Calcium (8.4-10.2) mg/dL Ionized Calcium Mario (4.5-5.3) mg/dL ALT 42 H (4-34) U/L Alkaline Phosphatase (38-126) U/L Total Protein (6.3-8.2) g/dL Albumin (3.5-5.0) g/dL Arterial Blood Potassium 5.0 H (3.4-4.5) mmol/L Arterial Blood Glucose 106 H (75-99) mg/dL Crossmatch See Detail 03/16/24 03/16/24 03/16/24 Range/Units 08:33 08:40 10:49 RBC (3.80-5.40) m/uL Hgb (11.4-16.0) gm/dL Hct (34.0-46.0) % Plt Count (150-450) k/uL Neutrophils # (1.3-7.7) k/uL Lymphocytes # (1.0-4.8) k/uL PT (10.0-12.5) sec INR (<1.2) APTT (22.0-30.0) sec ABG pH (7.35-7.45) ABG pCO2 32 L 34 L (35-45) mmHg ABG pO2 291 H 270 H 306 H (83-108) mmHg ABG HCO3 20 L 20 L (21-25) mmol/L ABG O2 Saturation 98.7 H 98.8 H 98.8 H (94-97) % ABG Hematocrit 22 L 32 L 24 L (34.0-46.0) % ABG Potassium 4.6 H (3.4-4.5) mmol/L ABG Ionized Calcium (4.5-5.3) mg/dL ABG Glucose 144 H 102 H (75-99) mg/dL Hemoglobin 7.3 L 10.3 L 7.7 L (11.4-16.0) gm/dL Chloride (98-107) mmol/L Carbon Dioxide (22-30) mmol/L BUN (7-17) mg/dL Glucose (74-99) mg/dL POC Glucose (mg/dL) (70-110) mg/dL Calcium (8.4-10.2) mg/dL Ionized Calcium Mario (4.5-5.3) mg/dL ALT (4-34) U/L Alkaline Phosphatase (38-126) U/L Total Protein (6.3-8.2) g/dL Albumin (3.5-5.0) g/dL Arterial Blood Potassium 4.6 H (3.4-4.5) mmol/L Arterial Blood Glucose 144 H 102 H (75-99) mg/dL Crossmatch 03/16/24 03/16/24 03/16/24 Range/Units 11:56 12:22 13:55 RBC (3.80-5.40) m/uL Hgb (11.4-16.0) gm/dL Hct (34.0-46.0) % Plt Count (150-450) k/uL Neutrophils # (1.3-7.7) k/uL Lymphocytes # (1.0-4.8) k/uL PT (10.0-12.5) sec INR (<1.2) APTT (22.0-30.0) sec ABG pH 7.47 H 7.32 L (7.35-7.45) ABG pCO2 31 L (35-45) mmHg ABG pO2 291 H 297 H 253 H (83-108) mmHg ABG HCO3 (21-25) mmol/L ABG O2 Saturation 98.8 H 98.7 H 98.7 H (94-97) % ABG Hematocrit 22 L 22 L 26 L (34.0-46.0) % ABG Potassium (3.4-4.5) mmol/L ABG Ionized Calcium 5.5 H (4.5-5.3) mg/dL ABG Glucose 109 H 117 H 147 H (75-99) mg/dL Hemoglobin 7.0 L* 7.2 L 8.3 L (11.4-16.0) gm/dL Chloride (98-107) mmol/L Carbon Dioxide (22-30) mmol/L BUN (7-17) mg/dL Glucose (74-99) mg/dL POC Glucose (mg/dL) (70-110) mg/dL Calcium (8.4-10.2) mg/dL Ionized Calcium Mario (4.5-5.3) mg/dL ALT (4-34) U/L Alkaline Phosphatase (38-126) U/L Total Protein (6.3-8.2) g/dL Albumin (3.5-5.0) g/dL Arterial Blood Potassium (3.4-4.5) mmol/L Arterial Blood Glucose 109 H 117 H 147 H (75-99) mg/dL Crossmatch 03/16/24 03/16/24 03/16/24 Range/Units 14:57 14:58 14:58 RBC 2.70 L (3.80-5.40) m/uL Hgb 8.2 L D (11.4-16.0) gm/dL Hct 23.7 L (34.0-46.0) % Plt Count 111 L D (150-450) k/uL Neutrophils # (1.3-7.7) k/uL Lymphocytes # (1.0-4.8) k/uL PT 14.6 H (10.0-12.5) sec INR 1.4 H (<1.2) APTT 40.9 H (22.0-30.0) sec ABG pH (7.35-7.45) ABG pCO2 (35-45) mmHg ABG pO2 (83-108) mmHg ABG HCO3 (21-25) mmol/L ABG O2 Saturation (94-97) % ABG Hematocrit (34.0-46.0) % ABG Potassium (3.4-4.5) mmol/L ABG Ionized Calcium (4.5-5.3) mg/dL ABG Glucose (75-99) mg/dL Hemoglobin (11.4-16.0) gm/dL Chloride (98-107) mmol/L Carbon Dioxide (22-30) mmol/L BUN (7-17) mg/dL Glucose (74-99) mg/dL POC Glucose (mg/dL) 119 H (70-110) mg/dL Calcium (8.4-10.2) mg/dL Ionized Calcium Mario (4.5-5.3) mg/dL ALT (4-34) U/L Alkaline Phosphatase (38-126) U/L Total Protein (6.3-8.2) g/dL Albumin (3.5-5.0) g/dL Arterial Blood Potassium (3.4-4.5) mmol/L Arterial Blood Glucose (75-99) mg/dL Crossmatch 03/16/24 03/16/24 03/16/24 Range/Units 14:58 15:23 16:19 RBC (3.80-5.40) m/uL Hgb (11.4-16.0) gm/dL Hct (34.0-46.0) % Plt Count (150-450) k/uL Neutrophils # (1.3-7.7) k/uL Lymphocytes # (1.0-4.8) k/uL PT (10.0-12.5) sec INR (<1.2) APTT (22.0-30.0) sec ABG pH (7.35-7.45) ABG pCO2 33 L (35-45) mmHg ABG pO2 300 H (83-108) mmHg ABG HCO3 20 L (21-25) mmol/L ABG O2 Saturation 99.9 H (94-97) % ABG Hematocrit (34.0-46.0) % ABG Potassium (3.4-4.5) mmol/L ABG Ionized Calcium (4.5-5.3) mg/dL ABG Glucose (75-99) mg/dL Hemoglobin 7.5 L (11.4-16.0) gm/dL Chloride 117 H (98-107) mmol/L Carbon Dioxide 20 L (22-30) mmol/L BUN (7-17) mg/dL Glucose 109 H (74-99) mg/dL POC Glucose (mg/dL) 151 H (70-110) mg/dL Calcium (8.4-10.2) mg/dL Ionized Calcium Mario 5.4 H (4.5-5.3) mg/dL ALT (4-34) U/L Alkaline Phosphatase 27 L (38-126) U/L Total Protein 4.2 L (6.3-8.2) g/dL Albumin 2.9 L (3.5-5.0) g/dL Arterial Blood Potassium (3.4-4.5) mmol/L Arterial Blood Glucose (75-99) mg/dL Crossmatch 03/16/24 03/16/24 03/16/24 Range/Units 18:00 18:03 18:58 RBC 2.30 L (3.80-5.40) m/uL Hgb 6.9 L* (11.4-16.0) gm/dL Hct 20.5 L (34.0-46.0) % Plt Count 105 L (150-450) k/uL Neutrophils # (1.3-7.7) k/uL Lymphocytes # 0.7 L (1.0-4.8) k/uL PT (10.0-12.5) sec INR (<1.2) APTT (22.0-30.0) sec ABG pH (7.35-7.45) ABG pCO2 (35-45) mmHg ABG pO2 (83-108) mmHg ABG HCO3 (21-25) mmol/L ABG O2 Saturation (94-97) % ABG Hematocrit (34.0-46.0) % ABG Potassium (3.4-4.5) mmol/L ABG Ionized Calcium (4.5-5.3) mg/dL ABG Glucose (75-99) mg/dL Hemoglobin (11.4-16.0) gm/dL Chloride (98-107) mmol/L Carbon Dioxide (22-30) mmol/L BUN (7-17) mg/dL Glucose (74-99) mg/dL POC Glucose (mg/dL) 142 H 118 H (70-110) mg/dL Calcium (8.4-10.2) mg/dL Ionized Calcium Mario (4.5-5.3) mg/dL ALT (4-34) U/L Alkaline Phosphatase (38-126) U/L Total Protein (6.3-8.2) g/dL Albumin (3.5-5.0) g/dL Arterial Blood Potassium (3.4-4.5) mmol/L Arterial Blood Glucose (75-99) mg/dL Crossmatch 03/16/24 03/16/24 03/16/24 Range/Units 19:56 20:55 21:05 RBC 2.76 L (3.80-5.40) m/uL Hgb 8.2 L (11.4-16.0) gm/dL Hct 24.6 L (34.0-46.0) % Plt Count 107 L (150-450) k/uL Neutrophils # 8.4 H (1.3-7.7) k/uL Lymphocytes # 0.8 L (1.0-4.8) k/uL PT (10.0-12.5) sec INR (<1.2) APTT (22.0-30.0) sec ABG pH (7.35-7.45) ABG pCO2 (35-45) mmHg ABG pO2 (83-108) mmHg ABG HCO3 (21-25) mmol/L ABG O2 Saturation (94-97) % ABG Hematocrit (34.0-46.0) % ABG Potassium (3.4-4.5) mmol/L ABG Ionized Calcium (4.5-5.3) mg/dL ABG Glucose (75-99) mg/dL Hemoglobin (11.4-16.0) gm/dL Chloride (98-107) mmol/L Carbon Dioxide (22-30) mmol/L BUN (7-17) mg/dL Glucose (74-99) mg/dL POC Glucose (mg/dL) 126 H 157 H (70-110) mg/dL Calcium (8.4-10.2) mg/dL Ionized Calcium Mario (4.5-5.3) mg/dL ALT (4-34) U/L Alkaline Phosphatase (38-126) U/L Total Protein (6.3-8.2) g/dL Albumin (3.5-5.0) g/dL Arterial Blood Potassium (3.4-4.5) mmol/L Arterial Blood Glucose (75-99) mg/dL Crossmatch 03/16/24 03/16/24 03/17/24 Range/Units 22:00 22:57 00:07 RBC (3.80-5.40) m/uL Hgb (11.4-16.0) gm/dL Hct (34.0-46.0) % Plt Count (150-450) k/uL Neutrophils # (1.3-7.7) k/uL Lymphocytes # (1.0-4.8) k/uL PT (10.0-12.5) sec INR (<1.2) APTT (22.0-30.0) sec ABG pH (7.35-7.45) ABG pCO2 (35-45) mmHg ABG pO2 (83-108) mmHg ABG HCO3 (21-25) mmol/L ABG O2 Saturation (94-97) % ABG Hematocrit (34.0-46.0) % ABG Potassium (3.4-4.5) mmol/L ABG Ionized Calcium (4.5-5.3) mg/dL ABG Glucose (75-99) mg/dL Hemoglobin (11.4-16.0) gm/dL Chloride (98-107) mmol/L Carbon Dioxide (22-30) mmol/L BUN (7-17) mg/dL Glucose (74-99) mg/dL POC Glucose (mg/dL) 147 H 140 H 134 H (70-110) mg/dL Calcium (8.4-10.2) mg/dL Ionized Calcium Mario (4.5-5.3) mg/dL ALT (4-34) U/L Alkaline Phosphatase (38-126) U/L Total Protein (6.3-8.2) g/dL Albumin (3.5-5.0) g/dL Arterial Blood Potassium (3.4-4.5) mmol/L Arterial Blood Glucose (75-99) mg/dL Crossmatch 03/17/24 03/17/24 03/17/24 Range/Units 01:26 02:11 03:07 RBC (3.80-5.40) m/uL Hgb (11.4-16.0) gm/dL Hct (34.0-46.0) % Plt Count (150-450) k/uL Neutrophils # (1.3-7.7) k/uL Lymphocytes # (1.0-4.8) k/uL PT (10.0-12.5) sec INR (<1.2) APTT (22.0-30.0) sec ABG pH (7.35-7.45) ABG pCO2 (35-45) mmHg ABG pO2 (83-108) mmHg ABG HCO3 (21-25) mmol/L ABG O2 Saturation (94-97) % ABG Hematocrit (34.0-46.0) % ABG Potassium (3.4-4.5) mmol/L ABG Ionized Calcium (4.5-5.3) mg/dL ABG Glucose (75-99) mg/dL Hemoglobin (11.4-16.0) gm/dL Chloride (98-107) mmol/L Carbon Dioxide (22-30) mmol/L BUN (7-17) mg/dL Glucose (74-99) mg/dL POC Glucose (mg/dL) 129 H 129 H 146 H (70-110) mg/dL Calcium (8.4-10.2) mg/dL Ionized Calcium Mario (4.5-5.3) mg/dL ALT (4-34) U/L Alkaline Phosphatase (38-126) U/L Total Protein (6.3-8.2) g/dL Albumin (3.5-5.0) g/dL Arterial Blood Potassium (3.4-4.5) mmol/L Arterial Blood Glucose (75-99) mg/dL Crossmatch 03/17/24 03/17/24 03/17/24 Range/Units 04:14 04:15 04:15 RBC 2.31 L (3.80-5.40) m/uL Hgb 6.9 L* (11.4-16.0) gm/dL Hct 20.1 L (34.0-46.0) % Plt Count 128 L (150-450) k/uL Neutrophils # (1.3-7.7) k/uL Lymphocytes # 0.4 L (1.0-4.8) k/uL PT (10.0-12.5) sec INR (<1.2) APTT (22.0-30.0) sec ABG pH (7.35-7.45) ABG pCO2 (35-45) mmHg ABG pO2 (83-108) mmHg ABG HCO3 (21-25) mmol/L ABG O2 Saturation (94-97) % ABG Hematocrit (34.0-46.0) % ABG Potassium (3.4-4.5) mmol/L ABG Ionized Calcium (4.5-5.3) mg/dL ABG Glucose (75-99) mg/dL Hemoglobin (11.4-16.0) gm/dL Chloride 115 H (98-107) mmol/L Carbon Dioxide 16 L (22-30) mmol/L BUN (7-17) mg/dL Glucose 138 H (74-99) mg/dL POC Glucose (mg/dL) 152 H (70-110) mg/dL Calcium 7.9 L (8.4-10.2) mg/dL Ionized Calcium Mario (4.5-5.3) mg/dL ALT (4-34) U/L Alkaline Phosphatase 30 L (38-126) U/L Total Protein 4.8 L (6.3-8.2) g/dL Albumin 3.4 L (3.5-5.0) g/dL Arterial Blood Potassium (3.4-4.5) mmol/L Arterial Blood Glucose (75-99) mg/dL Crossmatch 03/17/24 03/17/24 03/17/24 Range/Units 05:15 05:47 06:08 RBC (3.80-5.40) m/uL Hgb (11.4-16.0) gm/dL Hct (34.0-46.0) % Plt Count (150-450) k/uL Neutrophils # (1.3-7.7) k/uL Lymphocytes # (1.0-4.8) k/uL PT (10.0-12.5) sec INR (<1.2) APTT (22.0-30.0) sec ABG pH (7.35-7.45) ABG pCO2 30 L (35-45) mmHg ABG pO2 138 H (83-108) mmHg ABG HCO3 18 L (21-25) mmol/L ABG O2 Saturation 99.5 H (94-97) % ABG Hematocrit (34.0-46.0) % ABG Potassium (3.4-4.5) mmol/L ABG Ionized Calcium (4.5-5.3) mg/dL ABG Glucose (75-99) mg/dL Hemoglobin 6.7 L* (11.4-16.0) gm/dL Chloride (98-107) mmol/L Carbon Dioxide (22-30) mmol/L BUN (7-17) mg/dL Glucose (74-99) mg/dL POC Glucose (mg/dL) 140 H 133 H (70-110) mg/dL Calcium (8.4-10.2) mg/dL Ionized Calcium Mario (4.5-5.3) mg/dL ALT (4-34) U/L Alkaline Phosphatase (38-126) U/L Total Protein (6.3-8.2) g/dL Albumin (3.5-5.0) g/dL Arterial Blood Potassium (3.4-4.5) mmol/L Arterial Blood Glucose (75-99) mg/dL Crossmatch - Imaging and Cardiology Chest x-ray: image reviewed Assessment and Plan Assessment: Coronary artery disease, non-STEMI this admission, status post four-vessel off- pump CABG New onset atrial fibrillation, brief episode, currently sinus, status post ligation of the left atrial appendage as well as modified Morgan-Maze Chest pain, secondary to above History of brain aneurysm with coiling in 2019 and stent in 2019 Hypertension Hyperlipidemia, cholesterol 181, LDL 99 Hypothyroid, TSH 14.2, T4 1.23 Asymptomatic left subclavian stenosis Left sided nephrectomy Right renal artery stenosis 60% on CTA in 2020 Mnire's disease Previous tobacco dependence, preoperative FEV1 99% of predicted Anxiety Family history of myocardial infarction in both her mother and her father Plan: Continue to maximize medical therapy with aspirin, statin, Plavix, beta-kimo therapy. Will increase beta-kimo therapy as tolerated Continue amiodarone for A-fib prophylaxis, will transition to oral. No anticoagulation necessary Will discontinue IV nitro. Restart Norvasc for blood pressure and radial artery spasm prophylaxis Will give half amp bicarb, decrease PEEP to 5, decrease respiratory rate, repeat ABG and half hour Hopefully extubate today. Once extubated encourage incentive spirometry use 10 times every hour while awake Will monitor daily labs and x-rays, electrolyte replacement per protocol GI/DVT prophylaxis Once extubated will increase activity as tolerated, PT/OT/cardiac rehab consulted Pain control per current medication regimen, avoid Toradol due to nephrectomy, IV fentanyl added for breakthrough pain Insulin management per internal medicine. Patient is not diabetic, preoperative hemoglobin A1c 5.4%. She should be maintained on continuous IV insulin for 48 hours for tight blood sugar control, then may transition to subcutaneous per protocol Will discontinue ЮЛИЯ drains Continue Asher/Cordis for now Continue mediastinal/left pleural chest tubes for another 24 hours, monitor and record output Continue Campos catheter for another 24 hours, continue to monitor strict accurate intake and output More recommendations to follow as patient progresses
[2024-03-17] MEDS: CHLORHEXIDINE GLUCONATE 15 ML CUP MUCOUS MEM SCH (08:06)
[2024-03-17] MEDS: PANTOPRAZOLE 40 MG/10 ML VIAL IVP SCH (08:11)
[2024-03-17] MEDS: AMIODARONE 200 MG TAB PO SCH (08:15)
[2024-03-17] MEDS: ASPIRIN 325 MG TAB PO SCH (08:15)
[2024-03-17] MEDS: ATORVASTATIN 40 MG TAB PO SCH (08:16)
[2024-03-17 08:28] LABS: ABG Base Excess -4.4 mmol/L; ABG HCO3 20 mmol/L (21-25); ABG Oxygen Saturation 98.6 % (94-97); ABG PCO2 31 mmHg (35-45); ABG PH 7.41 (7.35-7.45); ABG PO2 98 mmHg (83-108); ABG TCO2 21 mmol/L (19-24)
[2024-03-17 08:30] LABS: Allen Test Performed? no
[2024-03-17 08:37] LABS: Glucose,Whole Blood 121 mg/dL (70-110)
[2024-03-17] MEDS: ASPIRIN 81 MG PO SCH (08:46)
[2024-03-17] MEDS: CLOPIDOGREL 75 MG TAB PO SCH (08:46)
[2024-03-17] MEDS ORDERED: METOPROLOL TARTRATE 12.5 MG TAB PO SCH (09:00)
[2024-03-17] MEDS ORDERED: PANTOPRAZOLE 40 MG/10 ML VIAL IVP SCH (09:00)
[2024-03-17 09:29] LABS: Glucose,Whole Blood 123 mg/dL (70-110)
--- NOTE | 2024-03-17 09:54 | P.PN ---
Subjective Progress Note Date: 03/17/24 The patient is a 68-year-old female who is currently admitted to the hospital with a non-ST elevated myocardial infarction. She was found to have multivessel coronary artery disease and underwent coronary bypass x 4 with MONZON to LAD and diagonal and left radial artery graft to posterior lateral branch of the circumflex and SVG to OM1. Patient also had modified Morgan-Maze procedure and left atrial appendage closure. GENERAL: Ill-appearing, well-nourished and in no acute distress. Currently intubated NECK: Supple without JVD or thyromegaly. LUNGS: Breath sounds diminished to auscultation bilaterally. Respiration equal and unlabored. No wheezes, rales or rhonchi. HEART: Regular rate and rhythm without murmurs, rubs or gallops. S1 and S2 heard. Heart hugger in place EXTREMITIES: Normal range of motion, no edema. No clubbing or cyanosis. Peripheral pulses intact and strong. ЮЛИЯ drain noted at left radial graft site TELEMETRY: Sinus rhythm LABS: WBC 7.5, hemoglobin 6.9, hematocrit 20.1, platelet 128, sodium 139, potassium 3.6, BUN 13, creatinine 0.75, magnesium 2.0, AST 29, ALT 15 IMPRESSION: NSTEMI, multivessel coronary artery disease Status post coronary bypass x 4 New onset paroxysmal atrial fibrillation, currently in sinus rhythm Uncontrolled hypertension Headache, resolved History of brain aneurysm status post coiling Hyperlipidemia Hypothyroidism Asymptomatic left subclavian artery stenosis PLAN: Continue amiodarone per protocol Maximize beta-kimo per CV team thereafter Continue supportive treatment Further recommendations to be based upon clinical course I am dictating on behalf of Dr Guanakito Ferrer's history/physical and assessment/plan. Objective - Vital Signs Vital signs: Vital Signs Temp 98.6 F 03/17/24 09:00 Pulse 95 03/17/24 09:00 Resp 13 03/17/24 09:00 BP 128/47 03/17/24 08:45 Pulse Ox 99 03/17/24 09:00 FiO2 40 03/17/24 08:00 Intake & Output 03/16/24 03/17/24 03/17/24 18:59 06:59 18:59 Intake Total 5488.674 6261.944 281.579 Output Total 1670 1547 346 Balance 103.892 679.944 -64.421 Weight 80.8 kg Intake: IV 169 1018 277 ACETAMINOPHEN IV (For NPO 100 ) 1,000 mg In Empty Bag 1 bag @ 400 mls/hr IVPB Q6HR [facility] Rx#:[id number] NS for cardiac output 80 310 50 NS for pressure lines 36 108 27 Sodium Chloride 0.9% 1, 500 150 000 ml @ 50 mls/hr IV . Q20H [facility] Rx#:[id number] ceFAZolin 2 gm In Sodium 50 Chloride 0.9% 50 ml @ 100 mls/hr IVPB Q8HR [facility] Rx# :[id number] Intake, IV Titration 1324.892 148.944 4.579 Amount ACETAMINOPHEN IV (For NPO 100 ) 1,000 mg In Empty Bag 1 bag @ 400 mls/hr IVPB Q6HR [facility] Rx#:[id number] Albumin Human 5% 250 ml 750 In Empty Bag 1 bag @ 250 mls/hr IVPB Q1HR [facility] Rx#: [id number] Amiodarone 360 mg In 99.9 33.3 Dextrose 5% in Water 200 ml @ 1 MG/MIN 33.333 mls/ hr IV .Q6H [facility] Rx#: [id number] Insulin Regular 100 unit 3.0 21.529 4.579 In Sodium Chloride 0.9% 100 ml @ Per Protocol IV .Q0M [facility] Rx#:[id number] Nitroglycerin-D5w Pmx 50 3.0 1.5 mg In Dextrose/Water 1 250ml.bag @ 5 MCG/MIN 1.5 mls/hr IV .Q24H [facility] Rx#: [id number] Sodium Chloride 0.9% 1, 200 50 000 ml @ 30 mls/hr IV . Q24H [facility] Rx#:[id number] ceFAZolin 2 gm In Sodium 50 Chloride 0.9% 50 ml @ 100 mls/hr IVPB Q8HR [facility] Rx# :[id number] propofoL 1,000 mg In 118.992 42.615 Empty Bag 1 bag @ Titrate IV .Q0M [facility] Rx#: [id number] Blood Product 280 1060 Ffp 24 Pher Acda Unit 200 [id number] Ffp 24 Pher Acda Cnt3 203 Unit [id number] Platelet Pheresis Pas 347 Psoralen Unit [id number] Rc As-1 Unit 310 [id number] Rc Pheresis 2 As3 Unit 0 [id number] Rc Pheresis 2 As3 Unit 280 [id number] Output: Chest Tube Drainage [address] 40 132 16 MSCT x 2 240 830 40 Gastric Drainage 150 Drainage 60 45 Left Arm 20 15 Rt leg 40 30 Urine 755 585 95 Estimated Blood Loss 575 Other: Voiding Method Indwelling Catheter Indwelling Catheter Indwelling Catheter ABP, PAP, CO, CI - Last Documented Arterial Blood Pressure 106/79 Pulmonary Artery Pressure 30/18 Cardiac Output 4.8 Cardiac Index 2.7 - Labs CBC & Chem 7: 03/17/24 04:15 03/17/24 04:15 Labs: Abnormal Lab Results - Last 24 Hours (Table) 03/15/24 03/16/24 03/16/24 Range/Units 06:24 06:12 08:33 RBC (3.80-5.40) m/uL Hgb (11.4-16.0) gm/dL Hct (34.0-46.0) % Plt Count (150-450) k/uL Neutrophils # (1.3-7.7) k/uL Lymphocytes # (1.0-4.8) k/uL PT (10.0-12.5) sec INR (<1.2) APTT (22.0-30.0) sec ABG pH 7.28 L (7.35-7.45) ABG pCO2 (35-45) mmHg ABG pO2 310 H (83-108) mmHg ABG HCO3 20 L (21-25) mmol/L ABG O2 Saturation 98.7 H (94-97) % ABG Hematocrit 27 L (34.0-46.0) % ABG Potassium 5.0 H (3.4-4.5) mmol/L ABG Ionized Calcium 5.4 H (4.5-5.3) mg/dL ABG Glucose 106 H (75-99) mg/dL Hemoglobin 8.8 L (11.4-16.0) gm/dL Chloride 114 H (98-107) mmol/L Carbon Dioxide 20 L (22-30) mmol/L BUN 20 H (7-17) mg/dL Glucose (74-99) mg/dL POC Glucose (mg/dL) (70-110) mg/dL Calcium (8.4-10.2) mg/dL Ionized Calcium Mario (4.5-5.3) mg/dL ALT 42 H (4-34) U/L Alkaline Phosphatase (38-126) U/L Total Protein (6.3-8.2) g/dL Albumin (3.5-5.0) g/dL Arterial Blood Potassium 5.0 H (3.4-4.5) mmol/L Arterial Blood Glucose 106 H (75-99) mg/dL Crossmatch See Detail 03/16/24 03/16/24 03/16/24 Range/Units 08:33 08:40 10:49 RBC (3.80-5.40) m/uL Hgb (11.4-16.0) gm/dL Hct (34.0-46.0) % Plt Count (150-450) k/uL Neutrophils # (1.3-7.7) k/uL Lymphocytes # (1.0-4.8) k/uL PT (10.0-12.5) sec INR (<1.2) APTT (22.0-30.0) sec ABG pH (7.35-7.45) ABG pCO2 32 L 34 L (35-45) mmHg ABG pO2 291 H 270 H 306 H (83-108) mmHg ABG HCO3 20 L 20 L (21-25) mmol/L ABG O2 Saturation 98.7 H 98.8 H 98.8 H (94-97) % ABG Hematocrit 22 L 32 L 24 L (34.0-46.0) % ABG Potassium 4.6 H (3.4-4.5) mmol/L ABG Ionized Calcium (4.5-5.3) mg/dL ABG Glucose 144 H 102 H (75-99) mg/dL Hemoglobin 7.3 L 10.3 L 7.7 L (11.4-16.0) gm/dL Chloride (98-107) mmol/L Carbon Dioxide (22-30) mmol/L BUN (7-17) mg/dL Glucose (74-99) mg/dL POC Glucose (mg/dL) (70-110) mg/dL Calcium (8.4-10.2) mg/dL Ionized Calcium Mario (4.5-5.3) mg/dL ALT (4-34) U/L Alkaline Phosphatase (38-126) U/L Total Protein (6.3-8.2) g/dL Albumin (3.5-5.0) g/dL Arterial Blood Potassium 4.6 H (3.4-4.5) mmol/L Arterial Blood Glucose 144 H 102 H (75-99) mg/dL Crossmatch 03/16/24 03/16/24 03/16/24 Range/Units 11:56 12:22 13:55 RBC (3.80-5.40) m/uL Hgb (11.4-16.0) gm/dL Hct (34.0-46.0) % Plt Count (150-450) k/uL Neutrophils # (1.3-7.7) k/uL Lymphocytes # (1.0-4.8) k/uL PT (10.0-12.5) sec INR (<1.2) APTT (22.0-30.0) sec ABG pH 7.47 H 7.32 L (7.35-7.45) ABG pCO2 31 L (35-45) mmHg ABG pO2 291 H 297 H 253 H (83-108) mmHg ABG HCO3 (21-25) mmol/L ABG O2 Saturation 98.8 H 98.7 H 98.7 H (94-97) % ABG Hematocrit 22 L 22 L 26 L (34.0-46.0) % ABG Potassium (3.4-4.5) mmol/L ABG Ionized Calcium 5.5 H (4.5-5.3) mg/dL ABG Glucose 109 H 117 H 147 H (75-99) mg/dL Hemoglobin 7.0 L* 7.2 L 8.3 L (11.4-16.0) gm/dL Chloride (98-107) mmol/L Carbon Dioxide (22-30) mmol/L BUN (7-17) mg/dL Glucose (74-99) mg/dL POC Glucose (mg/dL) (70-110) mg/dL Calcium (8.4-10.2) mg/dL Ionized Calcium Mario (4.5-5.3) mg/dL ALT (4-34) U/L Alkaline Phosphatase (38-126) U/L Total Protein (6.3-8.2) g/dL Albumin (3.5-5.0) g/dL Arterial Blood Potassium (3.4-4.5) mmol/L Arterial Blood Glucose 109 H 117 H 147 H (75-99) mg/dL Crossmatch 03/16/24 03/16/24 03/16/24 Range/Units 14:57 14:58 14:58 RBC 2.70 L (3.80-5.40) m/uL Hgb 8.2 L D (11.4-16.0) gm/dL Hct 23.7 L (34.0-46.0) % Plt Count 111 L D (150-450) k/uL Neutrophils # (1.3-7.7) k/uL Lymphocytes # (1.0-4.8) k/uL PT 14.6 H (10.0-12.5) sec INR 1.4 H (<1.2) APTT 40.9 H (22.0-30.0) sec ABG pH (7.35-7.45) ABG pCO2 (35-45) mmHg ABG pO2 (83-108) mmHg ABG HCO3 (21-25) mmol/L ABG O2 Saturation (94-97) % ABG Hematocrit (34.0-46.0) % ABG Potassium (3.4-4.5) mmol/L ABG Ionized Calcium (4.5-5.3) mg/dL ABG Glucose (75-99) mg/dL Hemoglobin (11.4-16.0) gm/dL Chloride (98-107) mmol/L Carbon Dioxide (22-30) mmol/L BUN (7-17) mg/dL Glucose (74-99) mg/dL POC Glucose (mg/dL) 119 H (70-110) mg/dL Calcium (8.4-10.2) mg/dL Ionized Calcium Mario (4.5-5.3) mg/dL ALT (4-34) U/L Alkaline Phosphatase (38-126) U/L Total Protein (6.3-8.2) g/dL Albumin (3.5-5.0) g/dL Arterial Blood Potassium (3.4-4.5) mmol/L Arterial Blood Glucose (75-99) mg/dL Crossmatch 12/02/2703/16/24 03/16/24 Range/Units 14:58 15:23 16:19 RBC (3.80-5.40) m/uL Hgb (11.4-16.0) gm/dL Hct (34.0-46.0) % Plt Count (150-450) k/uL Neutrophils # (1.3-7.7) k/uL Lymphocytes # (1.0-4.8) k/uL PT (10.0-12.5) sec INR (<1.2) APTT (22.0-30.0) sec ABG pH (7.35-7.45) ABG pCO2 33 L (35-45) mmHg ABG pO2 300 H (83-108) mmHg ABG HCO3 20 L (21-25) mmol/L ABG O2 Saturation 99.9 H (94-97) % ABG Hematocrit (34.0-46.0) % ABG Potassium (3.4-4.5) mmol/L ABG Ionized Calcium (4.5-5.3) mg/dL ABG Glucose (75-99) mg/dL Hemoglobin 7.5 L (11.4-16.0) gm/dL Chloride 117 H (98-107) mmol/L Carbon Dioxide 20 L (22-30) mmol/L BUN (7-17) mg/dL Glucose 109 H (74-99) mg/dL POC Glucose (mg/dL) 151 H (70-110) mg/dL Calcium (8.4-10.2) mg/dL Ionized Calcium Mario 5.4 H (4.5-5.3) mg/dL ALT (4-34) U/L Alkaline Phosphatase 27 L (38-126) U/L Total Protein 4.2 L (6.3-8.2) g/dL Albumin 2.9 L (3.5-5.0) g/dL Arterial Blood Potassium (3.4-4.5) mmol/L Arterial Blood Glucose (75-99) mg/dL Crossmatch 03/16/24 03/16/24 03/16/24 Range/Units 18:00 18:03 18:58 RBC 2.30 L (3.80-5.40) m/uL Hgb 6.9 L* (11.4-16.0) gm/dL Hct 20.5 L (34.0-46.0) % Plt Count 105 L (150-450) k/uL Neutrophils # (1.3-7.7) k/uL Lymphocytes # 0.7 L (1.0-4.8) k/uL PT (10.0-12.5) sec INR (<1.2) APTT (22.0-30.0) sec ABG pH (7.35-7.45) ABG pCO2 (35-45) mmHg ABG pO2 (83-108) mmHg ABG HCO3 (21-25) mmol/L ABG O2 Saturation (94-97) % ABG Hematocrit (34.0-46.0) % ABG Potassium (3.4-4.5) mmol/L ABG Ionized Calcium (4.5-5.3) mg/dL ABG Glucose (75-99) mg/dL Hemoglobin (11.4-16.0) gm/dL Chloride (98-107) mmol/L Carbon Dioxide (22-30) mmol/L BUN (7-17) mg/dL Glucose (74-99) mg/dL POC Glucose (mg/dL) 142 H 118 H (70-110) mg/dL Calcium (8.4-10.2) mg/dL Ionized Calcium Mario (4.5-5.3) mg/dL ALT (4-34) U/L Alkaline Phosphatase (38-126) U/L Total Protein (6.3-8.2) g/dL Albumin (3.5-5.0) g/dL Arterial Blood Potassium (3.4-4.5) mmol/L Arterial Blood Glucose (75-99) mg/dL Crossmatch 03/16/24 03/16/24 03/16/24 Range/Units 19:56 20:55 21:05 RBC 2.76 L (3.80-5.40) m/uL Hgb 8.2 L (11.4-16.0) gm/dL Hct 24.6 L (34.0-46.0) % Plt Count 107 L (150-450) k/uL Neutrophils # 8.4 H (1.3-7.7) k/uL Lymphocytes # 0.8 L (1.0-4.8) k/uL PT (10.0-12.5) sec INR (<1.2) APTT (22.0-30.0) sec ABG pH (7.35-7.45) ABG pCO2 (35-45) mmHg ABG pO2 (83-108) mmHg ABG HCO3 (21-25) mmol/L ABG O2 Saturation (94-97) % ABG Hematocrit (34.0-46.0) % ABG Potassium (3.4-4.5) mmol/L ABG Ionized Calcium (4.5-5.3) mg/dL ABG Glucose (75-99) mg/dL Hemoglobin (11.4-16.0) gm/dL Chloride (98-107) mmol/L Carbon Dioxide (22-30) mmol/L BUN (7-17) mg/dL Glucose (74-99) mg/dL POC Glucose (mg/dL) 126 H 157 H (70-110) mg/dL Calcium (8.4-10.2) mg/dL Ionized Calcium Mario (4.5-5.3) mg/dL ALT (4-34) U/L Alkaline Phosphatase (38-126) U/L Total Protein (6.3-8.2) g/dL Albumin (3.5-5.0) g/dL Arterial Blood Potassium (3.4-4.5) mmol/L Arterial Blood Glucose (75-99) mg/dL Crossmatch 03/16/24 03/16/24 03/17/24 Range/Units 22:00 22:57 00:07 RBC (3.80-5.40) m/uL Hgb (11.4-16.0) gm/dL Hct (34.0-46.0) % Plt Count (150-450) k/uL Neutrophils # (1.3-7.7) k/uL Lymphocytes # (1.0-4.8) k/uL PT (10.0-12.5) sec INR (<1.2) APTT (22.0-30.0) sec ABG pH (7.35-7.45) ABG pCO2 (35-45) mmHg ABG pO2 (83-108) mmHg ABG HCO3 (21-25) mmol/L ABG O2 Saturation (94-97) % ABG Hematocrit (34.0-46.0) % ABG Potassium (3.4-4.5) mmol/L ABG Ionized Calcium (4.5-5.3) mg/dL ABG Glucose (75-99) mg/dL Hemoglobin (11.4-16.0) gm/dL Chloride (98-107) mmol/L Carbon Dioxide (22-30) mmol/L BUN (7-17) mg/dL Glucose (74-99) mg/dL POC Glucose (mg/dL) 147 H 140 H 134 H (70-110) mg/dL Calcium (8.4-10.2) mg/dL Ionized Calcium Mario (4.5-5.3) mg/dL ALT (4-34) U/L Alkaline Phosphatase (38-126) U/L Total Protein (6.3-8.2) g/dL Albumin (3.5-5.0) g/dL Arterial Blood Potassium (3.4-4.5) mmol/L Arterial Blood Glucose (75-99) mg/dL Crossmatch 03/17/24 03/17/24 03/17/24 Range/Units 01:26 02:11 03:07 RBC (3.80-5.40) m/uL Hgb (11.4-16.0) gm/dL Hct (34.0-46.0) % Plt Count (150-450) k/uL Neutrophils # (1.3-7.7) k/uL Lymphocytes # (1.0-4.8) k/uL PT (10.0-12.5) sec INR (<1.2) APTT (22.0-30.0) sec ABG pH (7.35-7.45) ABG pCO2 (35-45) mmHg ABG pO2 (83-108) mmHg ABG HCO3 (21-25) mmol/L ABG O2 Saturation (94-97) % ABG Hematocrit (34.0-46.0) % ABG Potassium (3.4-4.5) mmol/L ABG Ionized Calcium (4.5-5.3) mg/dL ABG Glucose (75-99) mg/dL Hemoglobin (11.4-16.0) gm/dL Chloride (98-107) mmol/L Carbon Dioxide (22-30) mmol/L BUN (7-17) mg/dL Glucose (74-99) mg/dL POC Glucose (mg/dL) 129 H 129 H 146 H (70-110) mg/dL Calcium (8.4-10.2) mg/dL Ionized Calcium Mario (4.5-5.3) mg/dL ALT (4-34) U/L Alkaline Phosphatase (38-126) U/L Total Protein (6.3-8.2) g/dL Albumin (3.5-5.0) g/dL Arterial Blood Potassium (3.4-4.5) mmol/L Arterial Blood Glucose (75-99) mg/dL Crossmatch 03/17/24 03/17/24 03/17/24 Range/Units 04:14 04:15 04:15 RBC 2.31 L (3.80-5.40) m/uL Hgb 6.9 L* (11.4-16.0) gm/dL Hct 20.1 L (34.0-46.0) % Plt Count 128 L (150-450) k/uL Neutrophils # (1.3-7.7) k/uL Lymphocytes # 0.4 L (1.0-4.8) k/uL PT (10.0-12.5) sec INR (<1.2) APTT (22.0-30.0) sec ABG pH (7.35-7.45) ABG pCO2 (35-45) mmHg ABG pO2 (83-108) mmHg ABG HCO3 (21-25) mmol/L ABG O2 Saturation (94-97) % ABG Hematocrit (34.0-46.0) % ABG Potassium (3.4-4.5) mmol/L ABG Ionized Calcium (4.5-5.3) mg/dL ABG Glucose (75-99) mg/dL Hemoglobin (11.4-16.0) gm/dL Chloride 115 H (98-107) mmol/L Carbon Dioxide 16 L (22-30) mmol/L BUN (7-17) mg/dL Glucose 138 H (74-99) mg/dL POC Glucose (mg/dL) 152 H (70-110) mg/dL Calcium 7.9 L (8.4-10.2) mg/dL Ionized Calcium Mario (4.5-5.3) mg/dL ALT (4-34) U/L Alkaline Phosphatase 30 L (38-126) U/L Total Protein 4.8 L (6.3-8.2) g/dL Albumin 3.4 L (3.5-5.0) g/dL Arterial Blood Potassium (3.4-4.5) mmol/L Arterial Blood Glucose (75-99) mg/dL Crossmatch 03/17/24 03/17/24 03/17/24 Range/Units 05:15 05:47 06:08 RBC (3.80-5.40) m/uL Hgb (11.4-16.0) gm/dL Hct (34.0-46.0) % Plt Count (150-450) k/uL Neutrophils # (1.3-7.7) k/uL Lymphocytes # (1.0-4.8) k/uL PT (10.0-12.5) sec INR (<1.2) APTT (22.0-30.0) sec ABG pH (7.35-7.45) ABG pCO2 30 L (35-45) mmHg ABG pO2 138 H (83-108) mmHg ABG HCO3 18 L (21-25) mmol/L ABG O2 Saturation 99.5 H (94-97) % ABG Hematocrit (34.0-46.0) % ABG Potassium (3.4-4.5) mmol/L ABG Ionized Calcium (4.5-5.3) mg/dL ABG Glucose (75-99) mg/dL Hemoglobin 6.7 L* (11.4-16.0) gm/dL Chloride (98-107) mmol/L Carbon Dioxide (22-30) mmol/L BUN (7-17) mg/dL Glucose (74-99) mg/dL POC Glucose (mg/dL) 140 H 133 H (70-110) mg/dL Calcium (8.4-10.2) mg/dL Ionized Calcium Mario (4.5-5.3) mg/dL ALT (4-34) U/L Alkaline Phosphatase (38-126) U/L Total Protein (6.3-8.2) g/dL Albumin (3.5-5.0) g/dL Arterial Blood Potassium (3.4-4.5) mmol/L Arterial Blood Glucose (75-99) mg/dL Crossmatch 03/17/24 03/17/24 03/17/24 Range/Units 07:06 08:26 08:26 RBC (3.80-5.40) m/uL Hgb (11.4-16.0) gm/dL Hct (34.0-46.0) % Plt Count (150-450) k/uL Neutrophils # (1.3-7.7) k/uL Lymphocytes # (1.0-4.8) k/uL PT (10.0-12.5) sec INR (<1.2) APTT (22.0-30.0) sec ABG pH (7.35-7.45) ABG pCO2 31 L (35-45) mmHg ABG pO2 (83-108) mmHg ABG HCO3 20 L (21-25) mmol/L ABG O2 Saturation 98.6 H (94-97) % ABG Hematocrit (34.0-46.0) % ABG Potassium (3.4-4.5) mmol/L ABG Ionized Calcium (4.5-5.3) mg/dL ABG Glucose (75-99) mg/dL Hemoglobin 8.3 L (11.4-16.0) gm/dL Chloride (98-107) mmol/L Carbon Dioxide (22-30) mmol/L BUN (7-17) mg/dL Glucose (74-99) mg/dL POC Glucose (mg/dL) 128 H 121 H (70-110) mg/dL Calcium (8.4-10.2) mg/dL Ionized Calcium Mario (4.5-5.3) mg/dL ALT (4-34) U/L Alkaline Phosphatase (38-126) U/L Total Protein (6.3-8.2) g/dL Albumin (3.5-5.0) g/dL Arterial Blood Potassium (3.4-4.5) mmol/L Arterial Blood Glucose (75-99) mg/dL Crossmatch 03/17/24 Range/Units 09:18 RBC (3.80-5.40) m/uL Hgb (11.4-16.0) gm/dL Hct (34.0-46.0) % Plt Count (150-450) k/uL Neutrophils # (1.3-7.7) k/uL Lymphocytes # (1.0-4.8) k/uL PT (10.0-12.5) sec INR (<1.2) APTT (22.0-30.0) sec ABG pH (7.35-7.45) ABG pCO2 (35-45) mmHg ABG pO2 (83-108) mmHg ABG HCO3 (21-25) mmol/L ABG O2 Saturation (94-97) % ABG Hematocrit (34.0-46.0) % ABG Potassium (3.4-4.5) mmol/L ABG Ionized Calcium (4.5-5.3) mg/dL ABG Glucose (75-99) mg/dL Hemoglobin (11.4-16.0) gm/dL Chloride (98-107) mmol/L Carbon Dioxide (22-30) mmol/L BUN (7-17) mg/dL Glucose (74-99) mg/dL POC Glucose (mg/dL) 123 H (70-110) mg/dL Calcium (8.4-10.2) mg/dL Ionized Calcium Mario (4.5-5.3) mg/dL ALT (4-34) U/L Alkaline Phosphatase (38-126) U/L Total Protein (6.3-8.2) g/dL Albumin (3.5-5.0) g/dL Arterial Blood Potassium (3.4-4.5) mmol/L Arterial Blood Glucose (75-99) mg/dL Crossmatch
[2024-03-17] MEDS: ONDANSETRON 4 MG/2 ML VIAL IVP PRN (10:01)
[2024-03-17 10:23] LABS: Glucose,Whole Blood 131 mg/dL (70-110)
[2024-03-17] MEDS: hydrALAZINE HCL 20 MG/ML 1 ML VIAL IVP PRN (10:26)
[2024-03-17 10:36] LABS: HCT 25.2 % (34.0-46.0); MCH 30.5 pg (25.0-35.0); MCHC 34.4 g/dL (31.0-37.0); MCV 88.7 fL (80.0-100.0); Mean Platelet Volume 8.8; Platelet Count 148 k/uL (150-450); RBC 2.84 m/uL (3.80-5.40)
[2024-03-17 10:58] LABS: HGB 8.7 gm/dL (11.4-16.0)
[2024-03-17] MEDS: fentaNYL (PF) 50 MCG/ML 2 ML AMP IVP PRN (11:04)
--- NOTE | 2024-03-17 11:40 | P.PN ---
Subjective Progress Note Date: 03/17/24 Patient seen in the ICU. She is currently intubated and sedated. 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 Patient getting another unit of PRBC. Continue to monitor CBC Monitor Accu-Cheks. A1c on 03/11/2024 was 5.4. Blood glucose range is 328711. As per cardiology and CT surgery continue with aspirin 81 mg p.o. daily, atorvastatin 40 mg p.o. daily, Plavix 75 mg p.o. daily, A-fib with RVR Resume anticoagulation once cleared by primary team and cardiology History of left nephrectomy Creatinine stable at 0.75 Hypothyroidism Continue with levothyroxine 88 mcg p.o. 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 status post brain calling followed by stenting Stable DVT prophylaxis: As per CT surgery patient is on subcu heparin Objective - Vital Signs Vital signs: Vital Signs Temp 98.6 F 03/17/24 09:00 Pulse 88 03/17/24 11:15 Resp 22 03/17/24 11:00 BP 141/60 03/17/24 11:00 Pulse Ox 100 03/17/24 11:00 FiO2 40 03/17/24 08:00 Intake & Output 03/16/24 03/17/24 03/17/24 18:59 06:59 18:59 Intake Total 2895.334 5423.944 402.432 Output Total 1670 1547 431 Balance 103.892 679.944 -28.568 Weight 80.8 kg Intake: IV 169 1018 395 ACETAMINOPHEN IV (For NPO 100 ) 1,000 mg In Empty Bag 1 bag @ 400 mls/hr IVPB Q6HR [facility] Rx#:[id number] NS for cardiac output 80 310 50 NS for pressure lines 36 108 45 Sodium Chloride 0.9% 1, 500 250 000 ml @ 50 mls/hr IV . Q20H [facility] Rx#:[id number] ceFAZolin 2 gm In Sodium 50 Chloride 0.9% 50 ml @ 100 mls/hr IVPB Q8HR [facility] Rx# :[id number] Intake, IV Titration 1324.892 148.944 7.432 Amount ACETAMINOPHEN IV (For NPO 100 ) 1,000 mg In Empty Bag 1 bag @ 400 mls/hr IVPB Q6HR [facility] Rx#:[id number] Albumin Human 5% 250 ml 750 In Empty Bag 1 bag @ 250 mls/hr IVPB Q1HR PRN Rx#: [id number] Amiodarone 360 mg In 99.9 33.3 Dextrose 5% in Water 200 ml @ 1 MG/MIN 33.333 mls/ hr IV .Q6H ONE Rx#: [id number] Insulin Regular 100 unit 3.0 21.529 7.432 In Sodium Chloride 0.9% 100 ml @ Per Protocol IV .Q0M [facility] Rx#:[id number] Nitroglycerin-D5w Pmx 50 3.0 1.5 mg In Dextrose/Water 1 250ml.bag @ 5 MCG/MIN 1.5 mls/hr IV .Q24H [facility] Rx#: [id number] Sodium Chloride 0.9% 1, 200 50 000 ml @ 30 mls/hr IV . Q24H [facility] Rx#:[id number] ceFAZolin 2 gm In Sodium 50 Chloride 0.9% 50 ml @ 100 mls/hr IVPB Q8HR [facility] Rx# :[id number] propofoL 1,000 mg In 118.992 42.615 Empty Bag 1 bag @ Titrate IV .Q0M [facility] Rx#: [id number] Blood Product 280 1060 Ffp 24 Pher Acda Unit 200 [id number] Ffp 24 Pher Acda Cnt3 203 Unit [id number] Platelet Pheresis Pas 347 Psoralen Unit [id number] Rc As-1 Unit 310 [id number] Rc Pheresis 2 As3 Unit 0 [id number] Rc Pheresis 2 As3 Unit 280 [id number] Output: Chest Tube Drainage [address] 40 132 16 MSCT x 2 240 830 60 Gastric Drainage 150 Drainage 60 45 Left Arm 20 15 Rt leg 40 30 Urine 755 585 160 Estimated Blood Loss 575 Other: Voiding Method Indwelling Catheter Indwelling Catheter Indwelling Catheter ABP, PAP, CO, CI - Last Documented Arterial Blood Pressure 137/37 Pulmonary Artery Pressure 25/13 Cardiac Output 4.8 Cardiac Index 2.7 - Labs CBC & Chem 7: 03/17/24 10:19 03/17/24 10:19 Labs: Abnormal Lab Results - Last 24 Hours (Table) 03/15/24 03/16/24 03/16/24 Range/Units 06:24 06:12 08:33 WBC (3.8-10.6) k/uL RBC (3.80-5.40) m/uL Hgb (11.4-16.0) gm/dL Hct (34.0-46.0) % Plt Count (150-450) k/uL Neutrophils # (1.3-7.7) k/uL Lymphocytes # (1.0-4.8) k/uL PT (10.0-12.5) sec INR (<1.2) APTT (22.0-30.0) sec ABG pH 7.28 L (7.35-7.45) ABG pCO2 (35-45) mmHg ABG pO2 310 H (83-108) mmHg ABG HCO3 20 L (21-25) mmol/L ABG O2 Saturation 98.7 H (94-97) % ABG Hematocrit 27 L (34.0-46.0) % ABG Potassium 5.0 H (3.4-4.5) mmol/L ABG Ionized Calcium 5.4 H (4.5-5.3) mg/dL ABG Glucose 106 H (75-99) mg/dL Hemoglobin 8.8 L (11.4-16.0) gm/dL Potassium (3.5-5.1) mmol/L Chloride 114 H (98-107) mmol/L Carbon Dioxide 20 L (22-30) mmol/L BUN 20 H (7-17) mg/dL Glucose (74-99) mg/dL POC Glucose (mg/dL) (70-110) mg/dL Calcium (8.4-10.2) mg/dL Ionized Calcium Mario (4.5-5.3) mg/dL ALT 42 H (4-34) U/L Alkaline Phosphatase (38-126) U/L Total Protein (6.3-8.2) g/dL Albumin (3.5-5.0) g/dL Arterial Blood Potassium 5.0 H (3.4-4.5) mmol/L Arterial Blood Glucose 106 H (75-99) mg/dL Crossmatch See Detail 03/16/24 03/16/24 03/16/24 Range/Units 08:33 08:40 10:49 WBC (3.8-10.6) k/uL RBC (3.80-5.40) m/uL Hgb (11.4-16.0) gm/dL Hct (34.0-46.0) % Plt Count (150-450) k/uL Neutrophils # (1.3-7.7) k/uL Lymphocytes # (1.0-4.8) k/uL PT (10.0-12.5) sec INR (<1.2) APTT (22.0-30.0) sec ABG pH (7.35-7.45) ABG pCO2 32 L 34 L (35-45) mmHg ABG pO2 291 H 270 H 306 H (83-108) mmHg ABG HCO3 20 L 20 L (21-25) mmol/L ABG O2 Saturation 98.7 H 98.8 H 98.8 H (94-97) % ABG Hematocrit 22 L 32 L 24 L (34.0-46.0) % ABG Potassium 4.6 H (3.4-4.5) mmol/L ABG Ionized Calcium (4.5-5.3) mg/dL ABG Glucose 144 H 102 H (75-99) mg/dL Hemoglobin 7.3 L 10.3 L 7.7 L (11.4-16.0) gm/dL Potassium (3.5-5.1) mmol/L Chloride (98-107) mmol/L Carbon Dioxide (22-30) mmol/L BUN (7-17) mg/dL Glucose (74-99) mg/dL POC Glucose (mg/dL) (70-110) mg/dL Calcium (8.4-10.2) mg/dL Ionized Calcium Mario (4.5-5.3) mg/dL ALT (4-34) U/L Alkaline Phosphatase (38-126) U/L Total Protein (6.3-8.2) g/dL Albumin (3.5-5.0) g/dL Arterial Blood Potassium 4.6 H (3.4-4.5) mmol/L Arterial Blood Glucose 144 H 102 H (75-99) mg/dL Crossmatch 03/16/24 03/16/24 03/16/24 Range/Units 11:56 12:22 13:55 WBC (3.8-10.6) k/uL RBC (3.80-5.40) m/uL Hgb (11.4-16.0) gm/dL Hct (34.0-46.0) % Plt Count (150-450) k/uL Neutrophils # (1.3-7.7) k/uL Lymphocytes # (1.0-4.8) k/uL PT (10.0-12.5) sec INR (<1.2) APTT (22.0-30.0) sec ABG pH 7.47 H 7.32 L (7.35-7.45) ABG pCO2 31 L (35-45) mmHg ABG pO2 291 H 297 H 253 H (83-108) mmHg ABG HCO3 (21-25) mmol/L ABG O2 Saturation 98.8 H 98.7 H 98.7 H (94-97) % ABG Hematocrit 22 L 22 L 26 L (34.0-46.0) % ABG Potassium (3.4-4.5) mmol/L ABG Ionized Calcium 5.5 H (4.5-5.3) mg/dL ABG Glucose 109 H 117 H 147 H (75-99) mg/dL Hemoglobin 7.0 L* 7.2 L 8.3 L (11.4-16.0) gm/dL Potassium (3.5-5.1) mmol/L Chloride (98-107) mmol/L Carbon Dioxide (22-30) mmol/L BUN (7-17) mg/dL Glucose (74-99) mg/dL POC Glucose (mg/dL) (70-110) mg/dL Calcium (8.4-10.2) mg/dL Ionized Calcium Mario (4.5-5.3) mg/dL ALT (4-34) U/L Alkaline Phosphatase (38-126) U/L Total Protein (6.3-8.2) g/dL Albumin (3.5-5.0) g/dL Arterial Blood Potassium (3.4-4.5) mmol/L Arterial Blood Glucose 109 H 117 H 147 H (75-99) mg/dL Crossmatch 03/16/24 03/16/24 03/16/24 Range/Units 14:57 14:58 14:58 WBC (3.8-10.6) k/uL RBC 2.70 L (3.80-5.40) m/uL Hgb 8.2 L D (11.4-16.0) gm/dL Hct 23.7 L (34.0-46.0) % Plt Count 111 L D (150-450) k/uL Neutrophils # (1.3-7.7) k/uL Lymphocytes # (1.0-4.8) k/uL PT 14.6 H (10.0-12.5) sec INR 1.4 H (<1.2) APTT 40.9 H (22.0-30.0) sec ABG pH (7.35-7.45) ABG pCO2 (35-45) mmHg ABG pO2 (83-108) mmHg ABG HCO3 (21-25) mmol/L ABG O2 Saturation (94-97) % ABG Hematocrit (34.0-46.0) % ABG Potassium (3.4-4.5) mmol/L ABG Ionized Calcium (4.5-5.3) mg/dL ABG Glucose (75-99) mg/dL Hemoglobin (11.4-16.0) gm/dL Potassium (3.5-5.1) mmol/L Chloride (98-107) mmol/L Carbon Dioxide (22-30) mmol/L BUN (7-17) mg/dL Glucose (74-99) mg/dL POC Glucose (mg/dL) 119 H (70-110) mg/dL Calcium (8.4-10.2) mg/dL Ionized Calcium Mario (4.5-5.3) mg/dL ALT (4-34) U/L Alkaline Phosphatase (38-126) U/L Total Protein (6.3-8.2) g/dL Albumin (3.5-5.0) g/dL Arterial Blood Potassium (3.4-4.5) mmol/L Arterial Blood Glucose (75-99) mg/dL Crossmatch 03/16/24 03/16/24 03/16/24 Range/Units 14:58 15:23 16:19 WBC (3.8-10.6) k/uL RBC (3.80-5.40) m/uL Hgb (11.4-16.0) gm/dL Hct (34.0-46.0) % Plt Count (150-450) k/uL Neutrophils # (1.3-7.7) k/uL Lymphocytes # (1.0-4.8) k/uL PT (10.0-12.5) sec INR (<1.2) APTT (22.0-30.0) sec ABG pH (7.35-7.45) ABG pCO2 33 L (35-45) mmHg ABG pO2 300 H (83-108) mmHg ABG HCO3 20 L (21-25) mmol/L ABG O2 Saturation 99.9 H (94-97) % ABG Hematocrit (34.0-46.0) % ABG Potassium (3.4-4.5) mmol/L ABG Ionized Calcium (4.5-5.3) mg/dL ABG Glucose (75-99) mg/dL Hemoglobin 7.5 L (11.4-16.0) gm/dL Potassium (3.5-5.1) mmol/L Chloride 117 H (98-107) mmol/L Carbon Dioxide 20 L (22-30) mmol/L BUN (7-17) mg/dL Glucose 109 H (74-99) mg/dL POC Glucose (mg/dL) 151 H (70-110) mg/dL Calcium (8.4-10.2) mg/dL Ionized Calcium Mario 5.4 H (4.5-5.3) mg/dL ALT (4-34) U/L Alkaline Phosphatase 27 L (38-126) U/L Total Protein 4.2 L (6.3-8.2) g/dL Albumin 2.9 L (3.5-5.0) g/dL Arterial Blood Potassium (3.4-4.5) mmol/L Arterial Blood Glucose (75-99) mg/dL Crossmatch 03/16/24 03/16/24 03/16/24 Range/Units 18:00 18:03 18:58 WBC (3.8-10.6) k/uL RBC 2.30 L (3.80-5.40) m/uL Hgb 6.9 L* (11.4-16.0) gm/dL Hct 20.5 L (34.0-46.0) % Plt Count 105 L (150-450) k/uL Neutrophils # (1.3-7.7) k/uL Lymphocytes # 0.7 L (1.0-4.8) k/uL PT (10.0-12.5) sec INR (<1.2) APTT (22.0-30.0) sec ABG pH (7.35-7.45) ABG pCO2 (35-45) mmHg ABG pO2 (83-108) mmHg ABG HCO3 (21-25) mmol/L ABG O2 Saturation (94-97) % ABG Hematocrit (34.0-46.0) % ABG Potassium (3.4-4.5) mmol/L ABG Ionized Calcium (4.5-5.3) mg/dL ABG Glucose (75-99) mg/dL Hemoglobin (11.4-16.0) gm/dL Potassium (3.5-5.1) mmol/L Chloride (98-107) mmol/L Carbon Dioxide (22-30) mmol/L BUN (7-17) mg/dL Glucose (74-99) mg/dL POC Glucose (mg/dL) 142 H 118 H (70-110) mg/dL Calcium (8.4-10.2) mg/dL Ionized Calcium Mario (4.5-5.3) mg/dL ALT (4-34) U/L Alkaline Phosphatase (38-126) U/L Total Protein (6.3-8.2) g/dL Albumin (3.5-5.0) g/dL Arterial Blood Potassium (3.4-4.5) mmol/L Arterial Blood Glucose (75-99) mg/dL Crossmatch 03/16/24 03/16/24 03/16/24 Range/Units 19:56 20:55 21:05 WBC (3.8-10.6) k/uL RBC 2.76 L (3.80-5.40) m/uL Hgb 8.2 L (11.4-16.0) gm/dL Hct 24.6 L (34.0-46.0) % Plt Count 107 L (150-450) k/uL Neutrophils # 8.4 H (1.3-7.7) k/uL Lymphocytes # 0.8 L (1.0-4.8) k/uL PT (10.0-12.5) sec INR (<1.2) APTT (22.0-30.0) sec ABG pH (7.35-7.45) ABG pCO2 (35-45) mmHg ABG pO2 (83-108) mmHg ABG HCO3 (21-25) mmol/L ABG O2 Saturation (94-97) % ABG Hematocrit (34.0-46.0) % ABG Potassium (3.4-4.5) mmol/L ABG Ionized Calcium (4.5-5.3) mg/dL ABG Glucose (75-99) mg/dL Hemoglobin (11.4-16.0) gm/dL Potassium (3.5-5.1) mmol/L Chloride (98-107) mmol/L Carbon Dioxide (22-30) mmol/L BUN (7-17) mg/dL Glucose (74-99) mg/dL POC Glucose (mg/dL) 126 H 157 H (70-110) mg/dL Calcium (8.4-10.2) mg/dL Ionized Calcium Mario (4.5-5.3) mg/dL ALT (4-34) U/L Alkaline Phosphatase (38-126) U/L Total Protein (6.3-8.2) g/dL Albumin (3.5-5.0) g/dL Arterial Blood Potassium (3.4-4.5) mmol/L Arterial Blood Glucose (75-99) mg/dL Crossmatch 03/16/24 03/16/24 03/17/24 Range/Units 22:00 22:57 00:07 WBC (3.8-10.6) k/uL RBC (3.80-5.40) m/uL Hgb (11.4-16.0) gm/dL Hct (34.0-46.0) % Plt Count (150-450) k/uL Neutrophils # (1.3-7.7) k/uL Lymphocytes # (1.0-4.8) k/uL PT (10.0-12.5) sec INR (<1.2) APTT (22.0-30.0) sec ABG pH (7.35-7.45) ABG pCO2 (35-45) mmHg ABG pO2 (83-108) mmHg ABG HCO3 (21-25) mmol/L ABG O2 Saturation (94-97) % ABG Hematocrit (34.0-46.0) % ABG Potassium (3.4-4.5) mmol/L ABG Ionized Calcium (4.5-5.3) mg/dL ABG Glucose (75-99) mg/dL Hemoglobin (11.4-16.0) gm/dL Potassium (3.5-5.1) mmol/L Chloride (98-107) mmol/L Carbon Dioxide (22-30) mmol/L BUN (7-17) mg/dL Glucose (74-99) mg/dL POC Glucose (mg/dL) 147 H 140 H 134 H (70-110) mg/dL Calcium (8.4-10.2) mg/dL Ionized Calcium Mario (4.5-5.3) mg/dL ALT (4-34) U/L Alkaline Phosphatase (38-126) U/L Total Protein (6.3-8.2) g/dL Albumin (3.5-5.0) g/dL Arterial Blood Potassium (3.4-4.5) mmol/L Arterial Blood Glucose (75-99) mg/dL Crossmatch 03/17/24 03/17/24 03/17/24 Range/Units 01:26 02:11 03:07 WBC (3.8-10.6) k/uL RBC (3.80-5.40) m/uL Hgb (11.4-16.0) gm/dL Hct (34.0-46.0) % Plt Count (150-450) k/uL Neutrophils # (1.3-7.7) k/uL Lymphocytes # (1.0-4.8) k/uL PT (10.0-12.5) sec INR (<1.2) APTT (22.0-30.0) sec ABG pH (7.35-7.45) ABG pCO2 (35-45) mmHg ABG pO2 (83-108) mmHg ABG HCO3 (21-25) mmol/L ABG O2 Saturation (94-97) % ABG Hematocrit (34.0-46.0) % ABG Potassium (3.4-4.5) mmol/L ABG Ionized Calcium (4.5-5.3) mg/dL ABG Glucose (75-99) mg/dL Hemoglobin (11.4-16.0) gm/dL Potassium (3.5-5.1) mmol/L Chloride (98-107) mmol/L Carbon Dioxide (22-30) mmol/L BUN (7-17) mg/dL Glucose (74-99) mg/dL POC Glucose (mg/dL) 129 H 129 H 146 H (70-110) mg/dL Calcium (8.4-10.2) mg/dL Ionized Calcium Mario (4.5-5.3) mg/dL ALT (4-34) U/L Alkaline Phosphatase (38-126) U/L Total Protein (6.3-8.2) g/dL Albumin (3.5-5.0) g/dL Arterial Blood Potassium (3.4-4.5) mmol/L Arterial Blood Glucose (75-99) mg/dL Crossmatch 03/17/24 03/17/24 03/17/24 Range/Units 04:14 04:15 04:15 WBC (3.8-10.6) k/uL RBC 2.31 L (3.80-5.40) m/uL Hgb 6.9 L* (11.4-16.0) gm/dL Hct 20.1 L (34.0-46.0) % Plt Count 128 L (150-450) k/uL Neutrophils # (1.3-7.7) k/uL Lymphocytes # 0.4 L (1.0-4.8) k/uL PT (10.0-12.5) sec INR (<1.2) APTT (22.0-30.0) sec ABG pH (7.35-7.45) ABG pCO2 (35-45) mmHg ABG pO2 (83-108) mmHg ABG HCO3 (21-25) mmol/L ABG O2 Saturation (94-97) % ABG Hematocrit (34.0-46.0) % ABG Potassium (3.4-4.5) mmol/L ABG Ionized Calcium (4.5-5.3) mg/dL ABG Glucose (75-99) mg/dL Hemoglobin (11.4-16.0) gm/dL Potassium (3.5-5.1) mmol/L Chloride 115 H (98-107) mmol/L Carbon Dioxide 16 L (22-30) mmol/L BUN (7-17) mg/dL Glucose 138 H (74-99) mg/dL POC Glucose (mg/dL) 152 H (70-110) mg/dL Calcium 7.9 L (8.4-10.2) mg/dL Ionized Calcium Mario (4.5-5.3) mg/dL ALT (4-34) U/L Alkaline Phosphatase 30 L (38-126) U/L Total Protein 4.8 L (6.3-8.2) g/dL Albumin 3.4 L (3.5-5.0) g/dL Arterial Blood Potassium (3.4-4.5) mmol/L Arterial Blood Glucose (75-99) mg/dL Crossmatch 03/17/24 03/17/24 03/17/24 Range/Units 05:15 05:47 06:08 WBC (3.8-10.6) k/uL RBC (3.80-5.40) m/uL Hgb (11.4-16.0) gm/dL Hct (34.0-46.0) % Plt Count (150-450) k/uL Neutrophils # (1.3-7.7) k/uL Lymphocytes # (1.0-4.8) k/uL PT (10.0-12.5) sec INR (<1.2) APTT (22.0-30.0) sec ABG pH (7.35-7.45) ABG pCO2 30 L (35-45) mmHg ABG pO2 138 H (83-108) mmHg ABG HCO3 18 L (21-25) mmol/L ABG O2 Saturation 99.5 H (94-97) % ABG Hematocrit (34.0-46.0) % ABG Potassium (3.4-4.5) mmol/L ABG Ionized Calcium (4.5-5.3) mg/dL ABG Glucose (75-99) mg/dL Hemoglobin 6.7 L* (11.4-16.0) gm/dL Potassium (3.5-5.1) mmol/L Chloride (98-107) mmol/L Carbon Dioxide (22-30) mmol/L BUN (7-17) mg/dL Glucose (74-99) mg/dL POC Glucose (mg/dL) 140 H 133 H (70-110) mg/dL Calcium (8.4-10.2) mg/dL Ionized Calcium Mario (4.5-5.3) mg/dL ALT (4-34) U/L Alkaline Phosphatase (38-126) U/L Total Protein (6.3-8.2) g/dL Albumin (3.5-5.0) g/dL Arterial Blood Potassium (3.4-4.5) mmol/L Arterial Blood Glucose (75-99) mg/dL Crossmatch 03/17/24 03/17/24 03/17/24 Range/Units 07:06 08:26 08:26 WBC (3.8-10.6) k/uL RBC (3.80-5.40) m/uL Hgb (11.4-16.0) gm/dL Hct (34.0-46.0) % Plt Count (150-450) k/uL Neutrophils # (1.3-7.7) k/uL Lymphocytes # (1.0-4.8) k/uL PT (10.0-12.5) sec INR (<1.2) APTT (22.0-30.0) sec ABG pH (7.35-7.45) ABG pCO2 31 L (35-45) mmHg ABG pO2 (83-108) mmHg ABG HCO3 20 L (21-25) mmol/L ABG O2 Saturation 98.6 H (94-97) % ABG Hematocrit (34.0-46.0) % ABG Potassium (3.4-4.5) mmol/L ABG Ionized Calcium (4.5-5.3) mg/dL ABG Glucose (75-99) mg/dL Hemoglobin 8.3 L (11.4-16.0) gm/dL Potassium (3.5-5.1) mmol/L Chloride (98-107) mmol/L Carbon Dioxide (22-30) mmol/L BUN (7-17) mg/dL Glucose (74-99) mg/dL POC Glucose (mg/dL) 128 H 121 H (70-110) mg/dL Calcium (8.4-10.2) mg/dL Ionized Calcium Mario (4.5-5.3) mg/dL ALT (4-34) U/L Alkaline Phosphatase (38-126) U/L Total Protein (6.3-8.2) g/dL Albumin (3.5-5.0) g/dL Arterial Blood Potassium (3.4-4.5) mmol/L Arterial Blood Glucose (75-99) mg/dL Crossmatch 03/17/24 03/17/24 03/17/24 Range/Units 09:18 10:12 10:19 WBC 11.0 H (3.8-10.6) k/uL RBC 2.84 L (3.80-5.40) m/uL Hgb 8.7 L D (11.4-16.0) gm/dL Hct 25.2 L (34.0-46.0) % Plt Count 148 L (150-450) k/uL Neutrophils # (1.3-7.7) k/uL Lymphocytes # (1.0-4.8) k/uL PT (10.0-12.5) sec INR (<1.2) APTT (22.0-30.0) sec ABG pH (7.35-7.45) ABG pCO2 (35-45) mmHg ABG pO2 (83-108) mmHg ABG HCO3 (21-25) mmol/L ABG O2 Saturation (94-97) % ABG Hematocrit (34.0-46.0) % ABG Potassium (3.4-4.5) mmol/L ABG Ionized Calcium (4.5-5.3) mg/dL ABG Glucose (75-99) mg/dL Hemoglobin (11.4-16.0) gm/dL Potassium (3.5-5.1) mmol/L Chloride (98-107) mmol/L Carbon Dioxide (22-30) mmol/L BUN (7-17) mg/dL Glucose (74-99) mg/dL POC Glucose (mg/dL) 123 H 131 H (70-110) mg/dL Calcium (8.4-10.2) mg/dL Ionized Calcium Mario (4.5-5.3) mg/dL ALT (4-34) U/L Alkaline Phosphatase (38-126) U/L Total Protein (6.3-8.2) g/dL Albumin (3.5-5.0) g/dL Arterial Blood Potassium (3.4-4.5) mmol/L Arterial Blood Glucose (75-99) mg/dL Crossmatch 03/17/24 Range/Units 10:19 WBC (3.8-10.6) k/uL RBC (3.80-5.40) m/uL Hgb (11.4-16.0) gm/dL Hct (34.0-46.0) % Plt Count (150-450) k/uL Neutrophils # (1.3-7.7) k/uL Lymphocytes # (1.0-4.8) k/uL PT (10.0-12.5) sec INR (<1.2) APTT (22.0-30.0) sec ABG pH (7.35-7.45) ABG pCO2 (35-45) mmHg ABG pO2 (83-108) mmHg ABG HCO3 (21-25) mmol/L ABG O2 Saturation (94-97) % ABG Hematocrit (34.0-46.0) % ABG Potassium (3.4-4.5) mmol/L ABG Ionized Calcium (4.5-5.3) mg/dL ABG Glucose (75-99) mg/dL Hemoglobin (11.4-16.0) gm/dL Potassium 3.3 L (3.5-5.1) mmol/L Chloride (98-107) mmol/L Carbon Dioxide (22-30) mmol/L BUN (7-17) mg/dL Glucose (74-99) mg/dL POC Glucose (mg/dL) (70-110) mg/dL Calcium (8.4-10.2) mg/dL Ionized Calcium Mario (4.5-5.3) mg/dL ALT (4-34) U/L Alkaline Phosphatase (38-126) U/L Total Protein (6.3-8.2) g/dL Albumin (3.5-5.0) g/dL Arterial Blood Potassium (3.4-4.5) mmol/L Arterial Blood Glucose (75-99) mg/dL Crossmatch
[2024-03-17] MEDS ORDERED: Potassium Replacement Protocol 1 EACH MISC MISCELLANE PRN (11:43)
--- NOTE | 2024-03-17 12:12 | P.PN ---
Subjective patient is seen for follow-up for chronic kidney disease stage II with fairly preserved GFR. Status post CABG 4 on 03/16/2024. Patient was extubated today. Status post act RBCs transfusion for hemoglobin of 6.9. Restarted on oral antihypertensive medications. Maintained on amiodarone drip and nitro drip Objective - Vital Signs Vital signs: Vital Signs Temp 98.6 F 03/17/24 09:00 Pulse 88 03/17/24 11:15 Resp 16 03/17/24 11:44 BP 141/60 03/17/24 11:00 Pulse Ox 100 03/17/24 11:00 FiO2 40 03/17/24 08:00 Intake & Output 03/16/24 03/17/24 03/17/24 18:59 06:59 18:59 Intake Total 5284.179 0218.944 402.432 Output Total 1670 1547 431 Balance 103.892 679.944 -28.568 Weight 80.8 kg Intake: IV 169 1018 395 ACETAMINOPHEN IV (For NPO 100 ) 1,000 mg In Empty Bag 1 bag @ 400 mls/hr IVPB Q6HR [facility] Rx#:[id number] NS for cardiac output 80 310 50 NS for pressure lines 36 108 45 Sodium Chloride 0.9% 1, 500 250 000 ml @ 50 mls/hr IV . Q20H [facility] Rx#:[id number] ceFAZolin 2 gm In Sodium 50 Chloride 0.9% 50 ml @ 100 mls/hr IVPB Q8HR [facility] Rx# :[id number] Intake, IV Titration 1324.892 148.944 7.432 Amount ACETAMINOPHEN IV (For NPO 100 ) 1,000 mg In Empty Bag 1 bag @ 400 mls/hr IVPB Q6HR [facility] Rx#:[id number] Albumin Human 5% 250 ml 750 In Empty Bag 1 bag @ 250 mls/hr IVPB Q1HR PRN Rx#: [id number] Amiodarone 360 mg In 99.9 33.3 Dextrose 5% in Water 200 ml @ 1 MG/MIN 33.333 mls/ hr IV .Q6H [facility] Rx#: [id number] Insulin Regular 100 unit 3.0 21.529 7.432 In Sodium Chloride 0.9% 100 ml @ Per Protocol IV .Q0M [facility] Rx#:[id number] Nitroglycerin-D5w Pmx 50 3.0 1.5 mg In Dextrose/Water 1 250ml.bag @ 5 MCG/MIN 1.5 mls/hr IV .Q24H [facility] Rx#: [id number] Sodium Chloride 0.9% 1, 200 50 000 ml @ 30 mls/hr IV . Q24H [facility] Rx#:[id number] ceFAZolin 2 gm In Sodium 50 Chloride 0.9% 50 ml @ 100 mls/hr IVPB Q8HR [facility] Rx# :[id number] propofoL 1,000 mg In 118.992 42.615 Empty Bag 1 bag @ Titrate IV .Q0M [facility] Rx#: [id number] Blood Product 280 1060 Ffp 24 Pher Acda Unit 200 [id number] Ffp 24 Pher Acda Cnt3 203 Unit [id number] Platelet Pheresis Pas 347 Psoralen Unit [id number] Rc As-1 Unit 310 [id number] Rc Pheresis 2 As3 Unit 0 [id number] Rc Pheresis 2 As3 Unit 280 [id number] Output: Chest Tube Drainage [address] 40 132 16 MSCT x 2 240 830 60 Gastric Drainage 150 Drainage 60 45 Left Arm 20 15 Rt leg 40 30 Urine 755 585 160 Estimated Blood Loss 575 Other: Voiding Method Indwelling Catheter Indwelling Catheter Indwelling Catheter ABP, PAP, CO, CI - Last Documented Arterial Blood Pressure 137/37 Pulmonary Artery Pressure 25/13 Cardiac Output 4.8 Cardiac Index 2.7 - Exam patient is awake, comfortable, no acute distress. Alert oriented 3. 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 - Labs CBC & Chem 7: 03/17/24 10:19 03/17/24 10:19 Labs: Abnormal Lab Results - Last 24 Hours (Table) 03/15/24 03/16/24 03/16/24 Range/Units 06:24 06:12 08:33 WBC (3.8-10.6) k/uL RBC (3.80-5.40) m/uL Hgb (11.4-16.0) gm/dL Hct (34.0-46.0) % Plt Count (150-450) k/uL Neutrophils # (1.3-7.7) k/uL Lymphocytes # (1.0-4.8) k/uL PT (10.0-12.5) sec INR (<1.2) APTT (22.0-30.0) sec ABG pH (7.35-7.45) ABG pCO2 (35-45) mmHg ABG pO2 291 H (83-108) mmHg ABG HCO3 (21-25) mmol/L ABG O2 Saturation 98.7 H (94-97) % ABG Hematocrit 22 L (34.0-46.0) % ABG Potassium (3.4-4.5) mmol/L ABG Ionized Calcium (4.5-5.3) mg/dL ABG Glucose 144 H (75-99) mg/dL Hemoglobin 7.3 L (11.4-16.0) gm/dL Potassium (3.5-5.1) mmol/L Chloride 114 H (98-107) mmol/L Carbon Dioxide 20 L (22-30) mmol/L BUN 20 H (7-17) mg/dL Glucose (74-99) mg/dL POC Glucose (mg/dL) (70-110) mg/dL Calcium (8.4-10.2) mg/dL Ionized Calcium Mario (4.5-5.3) mg/dL ALT 42 H (4-34) U/L Alkaline Phosphatase (38-126) U/L Total Protein (6.3-8.2) g/dL Albumin (3.5-5.0) g/dL Arterial Blood Potassium (3.4-4.5) mmol/L Arterial Blood Glucose 144 H (75-99) mg/dL Crossmatch See Detail 03/16/24 03/16/24 03/16/24 Range/Units 10:49 11:56 12:22 WBC (3.8-10.6) k/uL RBC (3.80-5.40) m/uL Hgb (11.4-16.0) gm/dL Hct (34.0-46.0) % Plt Count (150-450) k/uL Neutrophils # (1.3-7.7) k/uL Lymphocytes # (1.0-4.8) k/uL PT (10.0-12.5) sec INR (<1.2) APTT (22.0-30.0) sec ABG pH 7.47 H (7.35-7.45) ABG pCO2 34 L 31 L (35-45) mmHg ABG pO2 306 H 291 H 297 H (83-108) mmHg ABG HCO3 20 L (21-25) mmol/L ABG O2 Saturation 98.8 H 98.8 H 98.7 H (94-97) % ABG Hematocrit 24 L 22 L 22 L (34.0-46.0) % ABG Potassium 4.6 H (3.4-4.5) mmol/L ABG Ionized Calcium (4.5-5.3) mg/dL ABG Glucose 102 H 109 H 117 H (75-99) mg/dL Hemoglobin 7.7 L 7.0 L* 7.2 L (11.4-16.0) gm/dL Potassium (3.5-5.1) mmol/L Chloride (98-107) mmol/L Carbon Dioxide (22-30) mmol/L BUN (7-17) mg/dL Glucose (74-99) mg/dL POC Glucose (mg/dL) (70-110) mg/dL Calcium (8.4-10.2) mg/dL Ionized Calcium Mario (4.5-5.3) mg/dL ALT (4-34) U/L Alkaline Phosphatase (38-126) U/L Total Protein (6.3-8.2) g/dL Albumin (3.5-5.0) g/dL Arterial Blood Potassium 4.6 H (3.4-4.5) mmol/L Arterial Blood Glucose 102 H 109 H 117 H (75-99) mg/dL Crossmatch 03/16/24 03/16/24 03/16/24 Range/Units 13:55 14:57 14:58 WBC (3.8-10.6) k/uL RBC 2.70 L (3.80-5.40) m/uL Hgb 8.2 L D (11.4-16.0) gm/dL Hct 23.7 L (34.0-46.0) % Plt Count 111 L D (150-450) k/uL Neutrophils # (1.3-7.7) k/uL Lymphocytes # (1.0-4.8) k/uL PT (10.0-12.5) sec INR (<1.2) APTT (22.0-30.0) sec ABG pH 7.32 L (7.35-7.45) ABG pCO2 (35-45) mmHg ABG pO2 253 H (83-108) mmHg ABG HCO3 (21-25) mmol/L ABG O2 Saturation 98.7 H (94-97) % ABG Hematocrit 26 L (34.0-46.0) % ABG Potassium (3.4-4.5) mmol/L ABG Ionized Calcium 5.5 H (4.5-5.3) mg/dL ABG Glucose 147 H (75-99) mg/dL Hemoglobin 8.3 L (11.4-16.0) gm/dL Potassium (3.5-5.1) mmol/L Chloride (98-107) mmol/L Carbon Dioxide (22-30) mmol/L BUN (7-17) mg/dL Glucose (74-99) mg/dL POC Glucose (mg/dL) 119 H (70-110) mg/dL Calcium (8.4-10.2) mg/dL Ionized Calcium Mario (4.5-5.3) mg/dL ALT (4-34) U/L Alkaline Phosphatase (38-126) U/L Total Protein (6.3-8.2) g/dL Albumin (3.5-5.0) g/dL Arterial Blood Potassium (3.4-4.5) mmol/L Arterial Blood Glucose 147 H (75-99) mg/dL Crossmatch 03/16/24 03/16/24 03/16/24 Range/Units 14:58 14:58 15:23 WBC (3.8-10.6) k/uL RBC (3.80-5.40) m/uL Hgb (11.4-16.0) gm/dL Hct (34.0-46.0) % Plt Count (150-450) k/uL Neutrophils # (1.3-7.7) k/uL Lymphocytes # (1.0-4.8) k/uL PT 14.6 H (10.0-12.5) sec INR 1.4 H (<1.2) APTT 40.9 H (22.0-30.0) sec ABG pH (7.35-7.45) ABG pCO2 33 L (35-45) mmHg ABG pO2 300 H (83-108) mmHg ABG HCO3 20 L (21-25) mmol/L ABG O2 Saturation 99.9 H (94-97) % ABG Hematocrit (34.0-46.0) % ABG Potassium (3.4-4.5) mmol/L ABG Ionized Calcium (4.5-5.3) mg/dL ABG Glucose (75-99) mg/dL Hemoglobin 7.5 L (11.4-16.0) gm/dL Potassium (3.5-5.1) mmol/L Chloride 117 H (98-107) mmol/L Carbon Dioxide 20 L (22-30) mmol/L BUN (7-17) mg/dL Glucose 109 H (74-99) mg/dL POC Glucose (mg/dL) (70-110) mg/dL Calcium (8.4-10.2) mg/dL Ionized Calcium Mario 5.4 H (4.5-5.3) mg/dL ALT (4-34) U/L Alkaline Phosphatase 27 L (38-126) U/L Total Protein 4.2 L (6.3-8.2) g/dL Albumin 2.9 L (3.5-5.0) g/dL Arterial Blood Potassium (3.4-4.5) mmol/L Arterial Blood Glucose (75-99) mg/dL Crossmatch 03/16/24 03/16/24 03/16/24 Range/Units 16:19 18:00 18:03 WBC (3.8-10.6) k/uL RBC 2.30 L (3.80-5.40) m/uL Hgb 6.9 L* (11.4-16.0) gm/dL Hct 20.5 L (34.0-46.0) % Plt Count 105 L (150-450) k/uL Neutrophils # (1.3-7.7) k/uL Lymphocytes # 0.7 L (1.0-4.8) k/uL PT (10.0-12.5) sec INR (<1.2) APTT (22.0-30.0) sec ABG pH (7.35-7.45) ABG pCO2 (35-45) mmHg ABG pO2 (83-108) mmHg ABG HCO3 (21-25) mmol/L ABG O2 Saturation (94-97) % ABG Hematocrit (34.0-46.0) % ABG Potassium (3.4-4.5) mmol/L ABG Ionized Calcium (4.5-5.3) mg/dL ABG Glucose (75-99) mg/dL Hemoglobin (11.4-16.0) gm/dL Potassium (3.5-5.1) mmol/L Chloride (98-107) mmol/L Carbon Dioxide (22-30) mmol/L BUN (7-17) mg/dL Glucose (74-99) mg/dL POC Glucose (mg/dL) 151 H 142 H (70-110) mg/dL Calcium (8.4-10.2) mg/dL Ionized Calcium Mario (4.5-5.3) mg/dL ALT (4-34) U/L Alkaline Phosphatase (38-126) U/L Total Protein (6.3-8.2) g/dL Albumin (3.5-5.0) g/dL Arterial Blood Potassium (3.4-4.5) mmol/L Arterial Blood Glucose (75-99) mg/dL Crossmatch 03/16/24 03/16/24 03/16/24 Range/Units 18:58 19:56 20:55 WBC (3.8-10.6) k/uL RBC 2.76 L (3.80-5.40) m/uL Hgb 8.2 L (11.4-16.0) gm/dL Hct 24.6 L (34.0-46.0) % Plt Count 107 L (150-450) k/uL Neutrophils # 8.4 H (1.3-7.7) k/uL Lymphocytes # 0.8 L (1.0-4.8) k/uL PT (10.0-12.5) sec INR (<1.2) APTT (22.0-30.0) sec ABG pH (7.35-7.45) ABG pCO2 (35-45) mmHg ABG pO2 (83-108) mmHg ABG HCO3 (21-25) mmol/L ABG O2 Saturation (94-97) % ABG Hematocrit (34.0-46.0) % ABG Potassium (3.4-4.5) mmol/L ABG Ionized Calcium (4.5-5.3) mg/dL ABG Glucose (75-99) mg/dL Hemoglobin (11.4-16.0) gm/dL Potassium (3.5-5.1) mmol/L Chloride (98-107) mmol/L Carbon Dioxide (22-30) mmol/L BUN (7-17) mg/dL Glucose (74-99) mg/dL POC Glucose (mg/dL) 118 H 126 H (70-110) mg/dL Calcium (8.4-10.2) mg/dL Ionized Calcium Mario (4.5-5.3) mg/dL ALT (4-34) U/L Alkaline Phosphatase (38-126) U/L Total Protein (6.3-8.2) g/dL Albumin (3.5-5.0) g/dL Arterial Blood Potassium (3.4-4.5) mmol/L Arterial Blood Glucose (75-99) mg/dL Crossmatch 03/16/24 03/16/24 03/16/24 Range/Units 21:05 22:00 22:57 WBC (3.8-10.6) k/uL RBC (3.80-5.40) m/uL Hgb (11.4-16.0) gm/dL Hct (34.0-46.0) % Plt Count (150-450) k/uL Neutrophils # (1.3-7.7) k/uL Lymphocytes # (1.0-4.8) k/uL PT (10.0-12.5) sec INR (<1.2) APTT (22.0-30.0) sec ABG pH (7.35-7.45) ABG pCO2 (35-45) mmHg ABG pO2 (83-108) mmHg ABG HCO3 (21-25) mmol/L ABG O2 Saturation (94-97) % ABG Hematocrit (34.0-46.0) % ABG Potassium (3.4-4.5) mmol/L ABG Ionized Calcium (4.5-5.3) mg/dL ABG Glucose (75-99) mg/dL Hemoglobin (11.4-16.0) gm/dL Potassium (3.5-5.1) mmol/L Chloride (98-107) mmol/L Carbon Dioxide (22-30) mmol/L BUN (7-17) mg/dL Glucose (74-99) mg/dL POC Glucose (mg/dL) 157 H 147 H 140 H (70-110) mg/dL Calcium (8.4-10.2) mg/dL Ionized Calcium Mario (4.5-5.3) mg/dL ALT (4-34) U/L Alkaline Phosphatase (38-126) U/L Total Protein (6.3-8.2) g/dL Albumin (3.5-5.0) g/dL Arterial Blood Potassium (3.4-4.5) mmol/L Arterial Blood Glucose (75-99) mg/dL Crossmatch 03/17/24 03/17/24 03/17/24 Range/Units 00:07 01:26 02:11 WBC (3.8-10.6) k/uL RBC (3.80-5.40) m/uL Hgb (11.4-16.0) gm/dL Hct (34.0-46.0) % Plt Count (150-450) k/uL Neutrophils # (1.3-7.7) k/uL Lymphocytes # (1.0-4.8) k/uL PT (10.0-12.5) sec INR (<1.2) APTT (22.0-30.0) sec ABG pH (7.35-7.45) ABG pCO2 (35-45) mmHg ABG pO2 (83-108) mmHg ABG HCO3 (21-25) mmol/L ABG O2 Saturation (94-97) % ABG Hematocrit (34.0-46.0) % ABG Potassium (3.4-4.5) mmol/L ABG Ionized Calcium (4.5-5.3) mg/dL ABG Glucose (75-99) mg/dL Hemoglobin (11.4-16.0) gm/dL Potassium (3.5-5.1) mmol/L Chloride (98-107) mmol/L Carbon Dioxide (22-30) mmol/L BUN (7-17) mg/dL Glucose (74-99) mg/dL POC Glucose (mg/dL) 134 H 129 H 129 H (70-110) mg/dL Calcium (8.4-10.2) mg/dL Ionized Calcium Mario (4.5-5.3) mg/dL ALT (4-34) U/L Alkaline Phosphatase (38-126) U/L Total Protein (6.3-8.2) g/dL Albumin (3.5-5.0) g/dL Arterial Blood Potassium (3.4-4.5) mmol/L Arterial Blood Glucose (75-99) mg/dL Crossmatch 03/17/24 03/17/24 03/17/24 Range/Units 03:07 04:14 04:15 WBC (3.8-10.6) k/uL RBC 2.31 L (3.80-5.40) m/uL Hgb 6.9 L* (11.4-16.0) gm/dL Hct 20.1 L (34.0-46.0) % Plt Count 128 L (150-450) k/uL Neutrophils # (1.3-7.7) k/uL Lymphocytes # 0.4 L (1.0-4.8) k/uL PT (10.0-12.5) sec INR (<1.2) APTT (22.0-30.0) sec ABG pH (7.35-7.45) ABG pCO2 (35-45) mmHg ABG pO2 (83-108) mmHg ABG HCO3 (21-25) mmol/L ABG O2 Saturation (94-97) % ABG Hematocrit (34.0-46.0) % ABG Potassium (3.4-4.5) mmol/L ABG Ionized Calcium (4.5-5.3) mg/dL ABG Glucose (75-99) mg/dL Hemoglobin (11.4-16.0) gm/dL Potassium (3.5-5.1) mmol/L Chloride (98-107) mmol/L Carbon Dioxide (22-30) mmol/L BUN (7-17) mg/dL Glucose (74-99) mg/dL POC Glucose (mg/dL) 146 H 152 H (70-110) mg/dL Calcium (8.4-10.2) mg/dL Ionized Calcium Mario (4.5-5.3) mg/dL ALT (4-34) U/L Alkaline Phosphatase (38-126) U/L Total Protein (6.3-8.2) g/dL Albumin (3.5-5.0) g/dL Arterial Blood Potassium (3.4-4.5) mmol/L Arterial Blood Glucose (75-99) mg/dL Crossmatch 03/17/24 03/17/24 03/17/24 Range/Units 04:15 05:15 05:47 WBC (3.8-10.6) k/uL RBC (3.80-5.40) m/uL Hgb (11.4-16.0) gm/dL Hct (34.0-46.0) % Plt Count (150-450) k/uL Neutrophils # (1.3-7.7) k/uL Lymphocytes # (1.0-4.8) k/uL PT (10.0-12.5) sec INR (<1.2) APTT (22.0-30.0) sec ABG pH (7.35-7.45) ABG pCO2 30 L (35-45) mmHg ABG pO2 138 H (83-108) mmHg ABG HCO3 18 L (21-25) mmol/L ABG O2 Saturation 99.5 H (94-97) % ABG Hematocrit (34.0-46.0) % ABG Potassium (3.4-4.5) mmol/L ABG Ionized Calcium (4.5-5.3) mg/dL ABG Glucose (75-99) mg/dL Hemoglobin 6.7 L* (11.4-16.0) gm/dL Potassium (3.5-5.1) mmol/L Chloride 115 H (98-107) mmol/L Carbon Dioxide 16 L (22-30) mmol/L BUN (7-17) mg/dL Glucose 138 H (74-99) mg/dL POC Glucose (mg/dL) 140 H (70-110) mg/dL Calcium 7.9 L (8.4-10.2) mg/dL Ionized Calcium Mario (4.5-5.3) mg/dL ALT (4-34) U/L Alkaline Phosphatase 30 L (38-126) U/L Total Protein 4.8 L (6.3-8.2) g/dL Albumin 3.4 L (3.5-5.0) g/dL Arterial Blood Potassium (3.4-4.5) mmol/L Arterial Blood Glucose (75-99) mg/dL Crossmatch 03/17/24 03/17/24 03/17/24 Range/Units 06:08 07:06 08:26 WBC (3.8-10.6) k/uL RBC (3.80-5.40) m/uL Hgb (11.4-16.0) gm/dL Hct (34.0-46.0) % Plt Count (150-450) k/uL Neutrophils # (1.3-7.7) k/uL Lymphocytes # (1.0-4.8) k/uL PT (10.0-12.5) sec INR (<1.2) APTT (22.0-30.0) sec ABG pH (7.35-7.45) ABG pCO2 31 L (35-45) mmHg ABG pO2 (83-108) mmHg ABG HCO3 20 L (21-25) mmol/L ABG O2 Saturation 98.6 H (94-97) % ABG Hematocrit (34.0-46.0) % ABG Potassium (3.4-4.5) mmol/L ABG Ionized Calcium (4.5-5.3) mg/dL ABG Glucose (75-99) mg/dL Hemoglobin 8.3 L (11.4-16.0) gm/dL Potassium (3.5-5.1) mmol/L Chloride (98-107) mmol/L Carbon Dioxide (22-30) mmol/L BUN (7-17) mg/dL Glucose (74-99) mg/dL POC Glucose (mg/dL) 133 H 128 H (70-110) mg/dL Calcium (8.4-10.2) mg/dL Ionized Calcium Mario (4.5-5.3) mg/dL ALT (4-34) U/L Alkaline Phosphatase (38-126) U/L Total Protein (6.3-8.2) g/dL Albumin (3.5-5.0) g/dL Arterial Blood Potassium (3.4-4.5) mmol/L Arterial Blood Glucose (75-99) mg/dL Crossmatch 1203/17/24 03/17/24 Range/Units 08:26 09:18 10:12 WBC (3.8-10.6) k/uL RBC (3.80-5.40) m/uL Hgb (11.4-16.0) gm/dL Hct (34.0-46.0) % Plt Count (150-450) k/uL Neutrophils # (1.3-7.7) k/uL Lymphocytes # (1.0-4.8) k/uL PT (10.0-12.5) sec INR (<1.2) APTT (22.0-30.0) sec ABG pH (7.35-7.45) ABG pCO2 (35-45) mmHg ABG pO2 (83-108) mmHg ABG HCO3 (21-25) mmol/L ABG O2 Saturation (94-97) % ABG Hematocrit (34.0-46.0) % ABG Potassium (3.4-4.5) mmol/L ABG Ionized Calcium (4.5-5.3) mg/dL ABG Glucose (75-99) mg/dL Hemoglobin (11.4-16.0) gm/dL Potassium (3.5-5.1) mmol/L Chloride (98-107) mmol/L Carbon Dioxide (22-30) mmol/L BUN (7-17) mg/dL Glucose (74-99) mg/dL POC Glucose (mg/dL) 121 H 123 H 131 H (70-110) mg/dL Calcium (8.4-10.2) mg/dL Ionized Calcium Mario (4.5-5.3) mg/dL ALT (4-34) U/L Alkaline Phosphatase (38-126) U/L Total Protein (6.3-8.2) g/dL Albumin (3.5-5.0) g/dL Arterial Blood Potassium (3.4-4.5) mmol/L Arterial Blood Glucose (75-99) mg/dL Crossmatch 03/17/24 03/17/24 Range/Units 10:19 10:19 WBC 11.0 H (3.8-10.6) k/uL RBC 2.84 L (3.80-5.40) m/uL Hgb 8.7 L D (11.4-16.0) gm/dL Hct 25.2 L (34.0-46.0) % Plt Count 148 L (150-450) k/uL Neutrophils # (1.3-7.7) k/uL Lymphocytes # (1.0-4.8) k/uL PT (10.0-12.5) sec INR (<1.2) APTT (22.0-30.0) sec ABG pH (7.35-7.45) ABG pCO2 (35-45) mmHg ABG pO2 (83-108) mmHg ABG HCO3 (21-25) mmol/L ABG O2 Saturation (94-97) % ABG Hematocrit (34.0-46.0) % ABG Potassium (3.4-4.5) mmol/L ABG Ionized Calcium (4.5-5.3) mg/dL ABG Glucose (75-99) mg/dL Hemoglobin (11.4-16.0) gm/dL Potassium 3.3 L (3.5-5.1) mmol/L Chloride (98-107) mmol/L Carbon Dioxide (22-30) mmol/L BUN (7-17) mg/dL Glucose (74-99) mg/dL POC Glucose (mg/dL) (70-110) mg/dL Calcium (8.4-10.2) mg/dL Ionized Calcium Mario (4.5-5.3) mg/dL ALT (4-34) U/L Alkaline Phosphatase (38-126) U/L Total Protein (6.3-8.2) g/dL Albumin (3.5-5.0) g/dL Arterial Blood Potassium (3.4-4.5) mmol/L Arterial Blood Glucose (75-99) mg/dL Crossmatch Assessment and Plan Assessment: 1. Chronic kidney disease stage II with solitary kidney and history of right renal artery stenosis, about 60% noted on CTA in 2019. Baseline creatinine about 0.9-0.8 mg/dL. UA has been benign. Well-controlled hypertension on 2 medications until this admission. 2. History of left nephrectomy for nonfunctioning kidney and repeated infections in 1998 3. Hypertension which had been very well controlled previously on 2 medications. Renal artery stenosis was not contributing to hypertension previously. This may have changed with worsening renal artery stenosis. Currently maintained on angiotensin receptor blockers along with amlodipine, metoprolol and low-dose hydralazine. Renal function is stable with use of angiotensin receptor blockers in the setting of solitary kidney. History of angioedema'/possible ALLERGY to maryjane inhibitors previously. 4. Status post coronary artery bypass surgery 4 on 03/16/2024 5. Paroxysmal A. fib Plan: resume oral antihypertensive medications Renal function is stable Repeat labs in a.m.
[2024-03-17 12:13] LABS: Glucose,Whole Blood 125 mg/dL (70-110)
--- NOTE | 2024-03-17 12:53 | P.PN ---
Subjective Progress Note Date: 03/17/24 Principal diagnosis: Coronary artery disease. Patient is a 68-year-old female with past medical history significant for brain aneurysm with previous coiling and stent, hypertension, hyperlipidemia, left subclavian stenosis, previous left-sided nephrectomy, hypothyroidism, Mnire's disease, generalized anxiety disorder, and former tobacco dependence. Patient denies any pre-existing lung disease. She does have significant smoking history, smoked 1 pack/day for over 30 years. Patient's primary care provider is marixa Orta out of Dr. Carranza's office. Patient presented to the emergency department back on March 09 with chest pain. Apparently, earlier that morning she was awoken with sudden onset substernal chest pain/tightness. She initially thought this was a anxiety attack as she does have a history of anxiety. No nausea, diaphoresis, shortness of breath. 30 minutes later, the feeling did not subside's, so she did call EMS. Patient did reportedly have a transient episode of A-fib RVR in route to the hospital. Patient was admitted with a diagnosis of non-ST elevation MT. Heart catheterization performed 03/10/2024 demonstrating severe three-vessel coronary artery disease with significant disease involvment of the proximal LAD, demonstrating 60 to 70% , left circumflex artery with 70% stenosis. and 90% stenosis of a nondominant RCA. Follow-up echocardiogram preserved left ventricular ejection fraction of 55 to 60%. No significant valvular abnormalities reported. Cardiothoracic surgery was consulted, patient is scheduled for surgical revascularization tomorrow morning. We were consulted for preoperative pulmonary clearance ventilator management following the procedure. As stated above, patient has no diagnosed history of pre-existing lung disease. She does have significant smoking history over [id number]. Patient did have bedside spirometry which showed an FEV1 2.35 L or 99% of predicted. Chest CTA done on arrival did not show any evidence of pulmonary emboli. There was evidence of mild emphysematous changes. Biapical scarring. Few borderline mildly enlarged lymph nodes in the hilum measuring 1.2 cm. Otherwise no acute findings. Most recent CBC done yesterday with a WBC count 8.4, hemoglobin 14.1, hematocrit 43.2, platelets 251. aPTT currently therapeutic at 67.7. BMP from yesterday: Sodium 140, potassium 4.3, chloride 110, serum bicarb 21, BUN 22, creatinine 0.93, glucose 93. Patient is currently walking the halls on room air. She has no respiratory distress. No current chest pain. Does have normal saline infusing at 50 mL/h. Also, heparin is infusion per protocol. Surgery is scheduled for tomorrow morning. Progress note dated March 16, 2024. 68-year-old female seen in consultation yesterday. Please see the note above. The patient had a off-pump four-vessel bypass surgery done today by Dr. Conklin. Please refer to the operative note. The patient is currently on the ventilator. Ventilator settings include volume assist-control, rate 16, tidal volume 400, FiO2 50%, and PEEP of 5. Blood gases on same settings, with FiO2 of 100%, showed a pO2 of 300, pCO2 of 33, and a pH of 7.399. The patient is on nitroglycerin at 5 mcg/min, propofol at 40 mcg/kg/min, 0.9 at 50 cc an hour, and amiodarone per protocol. In addition, the patient be started on an insulin drip at 1.5 units an hour. The patient's cardiac output is 3.3, and the index is 1.9. Pulmonary artery pressures 27/13. Current labs include a white count 7.9, hemoglobin 8.2, hematocrit 23.7, and a platelet count of 111,000. Sodium 141, potassium 4, chlorides 117, CO2 20, BUN 16, creatinine 0.71. Glucose is 151. Chest x-ray reveals an endotracheal tube, which is 5 cm above the tracheal jaki. There is a left-sided chest tube present. There is a mediastinal tube in the midline. Nasogastric tube was also noted, as well as a [place]Rae catheter. There are some bibasilar atelectasis, and a small right apical pneumothorax. Progress note dated March 17, 2024. 68-year-old female seen today in room 264. She is postop day #1, status post off-pump four-vessel bypass surgery. She is on volume assist-control, rate 14, tidal volume 400, FiO2 40%, PEEP of 5. Blood gases show pO2 of 138, pCO2 of 30, pH is 7.38. Repeat blood gases show pO2 of 98, pCO2 31, pH is 7.41. She is on pressure support of 5 and CPAP of 5. The patient can be extubated. Rapid shallow breathing index is 38. The patient is getting saline at 50 cc an hour, insulin at 2 units an hour, and amiodarone 0.5 mg/min. White count is 11, hemog lobin 8.7, hematocrit 25.2, platelet count normal. Sodium 139, potassium 3.3, chlorides 115, CO2 16, BUN 13, creatinine 0.75. Calcium is 7.9. Albumin is 3.4. Chest x-ray shows some postsurgical changes. Previous right apical pneumothorax is not seen. Objective - Vital Signs Vital signs: Vital Signs Temp 98.8 F 03/17/24 12:00 Pulse 89 03/17/24 12:18 Resp 16 03/17/24 12:18 BP 136/56 03/17/24 12:18 Pulse Ox 100 03/17/24 12:18 FiO2 40 03/17/24 08:00 Intake & Output 03/16/24 03/17/24 03/17/24 18:59 06:59 18:59 Intake Total 9276.145 3339.944 711.432 Output Total 1670 1547 501 Balance 103.892 679.944 210.432 Weight 80.8 kg Intake: IV 169 1018 454 ACETAMINOPHEN IV (For NPO 100 ) 1,000 mg In Empty Bag 1 bag @ 400 mls/hr IVPB Q6HR [facility] Rx#:[id number] NS for cardiac output 80 310 50 NS for pressure lines 36 108 54 Sodium Chloride 0.9% 1, 500 300 000 ml @ 50 mls/hr IV . Q20H [facility] Rx#:[id number] ceFAZolin 2 gm In Sodium 50 Chloride 0.9% 50 ml @ 100 mls/hr IVPB Q8HR [facility] Rx# :[id number] Intake, IV Titration 1324.892 148.944 257.432 Amount ACETAMINOPHEN IV (For NPO 100 ) 1,000 mg In Empty Bag 1 bag @ 400 mls/hr IVPB Q6HR [facility] Rx#:[id number] Albumin Human 5% 250 ml 750 In Empty Bag 1 bag @ 250 mls/hr IVPB Q1HR PRN Rx#: [id number] Amiodarone 360 mg In 99.9 33.3 Dextrose 5% in Water 200 ml @ 1 MG/MIN 33.333 mls/ hr IV .Q6H ONE Rx#: [id number] Amiodarone 450 mg In 250 Dextrose 5% in Water 250 ml @ 0.5 MG/MIN 16.667 mls/hr IV .Q15H [facility] Rx#: [id number] Insulin Regular 100 unit 3.0 21.529 7.432 In Sodium Chloride 0.9% 100 ml @ Per Protocol IV .Q0M [facility] Rx#:[id number] Nitroglycerin-D5w Pmx 50 3.0 1.5 mg In Dextrose/Water 1 250ml.bag @ 5 MCG/MIN 1.5 mls/hr IV .Q24H [facility] Rx#: [id number] Sodium Chloride 0.9% 1, 200 50 000 ml @ 30 mls/hr IV . Q24H [facility] Rx#:[id number] ceFAZolin 2 gm In Sodium 50 Chloride 0.9% 50 ml @ 100 mls/hr IVPB Q8HR [facility] Rx# :[id number] propofoL 1,000 mg In 118.992 42.615 Empty Bag 1 bag @ Titrate IV .Q0M [facility] Rx#: [id number] Blood Product 280 1060 Ffp 24 Pher Acda Unit 200 [id number] Ffp 24 Pher Acda Cnt3 203 Unit [id number] Platelet Pheresis Pas 347 Psoralen Unit [id number] Rc As-1 Unit 310 [id number] Rc Pheresis 2 As3 Unit 0 [id number] Rc Pheresis 2 As3 Unit 280 [id number] Output: Chest Tube Drainage [address] 40 132 36 MSCT x 2 240 830 90 Gastric Drainage 150 Drainage 60 45 Left Arm 20 15 Rt leg 40 30 Urine 755 585 180 Estimated Blood Loss 575 Other: Voiding Method Indwelling Catheter Indwelling Catheter Indwelling Catheter ABP, PAP, CO, CI - Last Documented Arterial Blood Pressure 155/43 Pulmonary Artery Pressure 27/13 Cardiac Output 5.5 Cardiac Index 3.1 - Exam No acute distress, currently weaning, on pressure support and CPAP. HEENT examination is grossly unremarkable. Neck supple. Full range of motion. No adenopathy thyromegaly or neck vein distention. Cardiovascular examination reveals regular rhythm rate. S1-S2 normal. No S3 or S4. No discernible murmur noted. Lungs reveal clear breath sounds. Breath sounds are equal bilaterally. No adventitious lung sounds including wheezes rhonchi or crackles. Abdomen soft bowel sounds. No masses. Extremities are intact. No cyanosis clubbing or edema. Skin is without rash or lesion. Neurologic examination is limited but appears normal. - Labs CBC & Chem 7: 03/17/24 10:19 12 10:19 Labs: Abnormal Lab Results - Last 24 Hours (Table) 03/15/24 03/16/24 03/16/24 Range/Units 06:24 06:12 08:33 WBC (3.8-10.6) k/uL RBC (3.80-5.40) m/uL Hgb (11.4-16.0) gm/dL Hct (34.0-46.0) % Plt Count (150-450) k/uL Neutrophils # (1.3-7.7) k/uL Lymphocytes # (1.0-4.8) k/uL PT (10.0-12.5) sec INR (<1.2) APTT (22.0-30.0) sec ABG pH (7.35-7.45) ABG pCO2 (35-45) mmHg ABG pO2 291 H (83-108) mmHg ABG HCO3 (21-25) mmol/L ABG O2 Saturation 98.7 H (94-97) % ABG Hematocrit 22 L (34.0-46.0) % ABG Ionized Calcium (4.5-5.3) mg/dL ABG Glucose 144 H (75-99) mg/dL Hemoglobin 7.3 L (11.4-16.0) gm/dL Potassium (3.5-5.1) mmol/L Chloride 114 H (98-107) mmol/L Carbon Dioxide 20 L (22-30) mmol/L BUN 20 H (7-17) mg/dL Glucose (74-99) mg/dL POC Glucose (mg/dL) (70-110) mg/dL Calcium (8.4-10.2) mg/dL Ionized Calcium Mario (4.5-5.3) mg/dL ALT 42 H (4-34) U/L Alkaline Phosphatase (38-126) U/L Total Protein (6.3-8.2) g/dL Albumin (3.5-5.0) g/dL Arterial Blood Glucose 144 H (75-99) mg/dL Crossmatch See Detail 03/16/24 03/16/24 03/16/24 Range/Units 12:22 13:55 14:57 WBC (3.8-10.6) k/uL RBC (3.80-5.40) m/uL Hgb (11.4-16.0) gm/dL Hct (34.0-46.0) % Plt Count (150-450) k/uL Neutrophils # (1.3-7.7) k/uL Lymphocytes # (1.0-4.8) k/uL PT (10.0-12.5) sec INR (<1.2) APTT (22.0-30.0) sec ABG pH 7.32 L (7.35-7.45) ABG pCO2 (35-45) mmHg ABG pO2 297 H 253 H (83-108) mmHg ABG HCO3 (21-25) mmol/L ABG O2 Saturation 98.7 H 98.7 H (94-97) % ABG Hematocrit 22 L 26 L (34.0-46.0) % ABG Ionized Calcium 5.5 H (4.5-5.3) mg/dL ABG Glucose 117 H 147 H (75-99) mg/dL Hemoglobin 7.2 L 8.3 L (11.4-16.0) gm/dL Potassium (3.5-5.1) mmol/L Chloride (98-107) mmol/L Carbon Dioxide (22-30) mmol/L BUN (7-17) mg/dL Glucose (74-99) mg/dL POC Glucose (mg/dL) 119 H (70-110) mg/dL Calcium (8.4-10.2) mg/dL Ionized Calcium Mario (4.5-5.3) mg/dL ALT (4-34) U/L Alkaline Phosphatase (38-126) U/L Total Protein (6.3-8.2) g/dL Albumin (3.5-5.0) g/dL Arterial Blood Glucose 117 H 147 H (75-99) mg/dL Crossmatch 03/16/24 03/16/24 03/16/24 Range/Units 14:58 14:58 14:58 WBC (3.8-10.6) k/uL RBC 2.70 L (3.80-5.40) m/uL Hgb 8.2 L D (11.4-16.0) gm/dL Hct 23.7 L (34.0-46.0) % Plt Count 111 L D (150-450) k/uL Neutrophils # (1.3-7.7) k/uL Lymphocytes # (1.0-4.8) k/uL PT 14.6 H (10.0-12.5) sec INR 1.4 H (<1.2) APTT 40.9 H (22.0-30.0) sec ABG pH (7.35-7.45) ABG pCO2 (35-45) mmHg ABG pO2 (83-108) mmHg ABG HCO3 (21-25) mmol/L ABG O2 Saturation (94-97) % ABG Hematocrit (34.0-46.0) % ABG Ionized Calcium (4.5-5.3) mg/dL ABG Glucose (75-99) mg/dL Hemoglobin (11.4-16.0) gm/dL Potassium (3.5-5.1) mmol/L Chloride 117 H (98-107) mmol/L Carbon Dioxide 20 L (22-30) mmol/L BUN (7-17) mg/dL Glucose 109 H (74-99) mg/dL POC Glucose (mg/dL) (70-110) mg/dL Calcium (8.4-10.2) mg/dL Ionized Calcium Mario 5.4 H (4.5-5.3) mg/dL ALT (4-34) U/L Alkaline Phosphatase 27 L (38-126) U/L Total Protein 4.2 L (6.3-8.2) g/dL Albumin 2.9 L (3.5-5.0) g/dL Arterial Blood Glucose (75-99) mg/dL Crossmatch 03/16/24 03/16/24 03/16/24 Range/Units 15:23 16:19 18:00 WBC (3.8-10.6) k/uL RBC 2.30 L (3.80-5.40) m/uL Hgb 6.9 L* (11.4-16.0) gm/dL Hct 20.5 L (34.0-46.0) % Plt Count 105 L (150-450) k/uL Neutrophils # (1.3-7.7) k/uL Lymphocytes # 0.7 L (1.0-4.8) k/uL PT (10.0-12.5) sec INR (<1.2) APTT (22.0-30.0) sec ABG pH (7.35-7.45) ABG pCO2 33 L (35-45) mmHg ABG pO2 300 H (83-108) mmHg ABG HCO3 20 L (21-25) mmol/L ABG O2 Saturation 99.9 H (94-97) % ABG Hematocrit (34.0-46.0) % ABG Ionized Calcium (4.5-5.3) mg/dL ABG Glucose (75-99) mg/dL Hemoglobin 7.5 L (11.4-16.0) gm/dL Potassium (3.5-5.1) mmol/L Chloride (98-107) mmol/L Carbon Dioxide (22-30) mmol/L BUN (7-17) mg/dL Glucose (74-99) mg/dL POC Glucose (mg/dL) 151 H (70-110) mg/dL Calcium (8.4-10.2) mg/dL Ionized Calcium Mario (4.5-5.3) mg/dL ALT (4-34) U/L Alkaline Phosphatase (38-126) U/L Total Protein (6.3-8.2) g/dL Albumin (3.5-5.0) g/dL Arterial Blood Glucose (75-99) mg/dL Crossmatch 03/16/24 03/16/24 03/16/24 Range/Units 18:03 18:58 19:56 WBC (3.8-10.6) k/uL RBC (3.80-5.40) m/uL Hgb (11.4-16.0) gm/dL Hct (34.0-46.0) % Plt Count (150-450) k/uL Neutrophils # (1.3-7.7) k/uL Lymphocytes # (1.0-4.8) k/uL PT (10.0-12.5) sec INR (<1.2) APTT (22.0-30.0) sec ABG pH (7.35-7.45) ABG pCO2 (35-45) mmHg ABG pO2 (83-108) mmHg ABG HCO3 (21-25) mmol/L ABG O2 Saturation (94-97) % ABG Hematocrit (34.0-46.0) % ABG Ionized Calcium (4.5-5.3) mg/dL ABG Glucose (75-99) mg/dL Hemoglobin (11.4-16.0) gm/dL Potassium (3.5-5.1) mmol/L Chloride (98-107) mmol/L Carbon Dioxide (22-30) mmol/L BUN (7-17) mg/dL Glucose (74-99) mg/dL POC Glucose (mg/dL) 142 H 118 H 126 H (70-110) mg/dL Calcium (8.4-10.2) mg/dL Ionized Calcium Mario (4.5-5.3) mg/dL ALT (4-34) U/L Alkaline Phosphatase (38-126) U/L Total Protein (6.3-8.2) g/dL Albumin (3.5-5.0) g/dL Arterial Blood Glucose (75-99) mg/dL Crossmatch 03/16/24 03/16/24 03/16/24 Range/Units 20:55 21:05 22:00 WBC (3.8-10.6) k/uL RBC 2.76 L (3.80-5.40) m/uL Hgb 8.2 L (11.4-16.0) gm/dL Hct 24.6 L (34.0-46.0) % Plt Count 107 L (150-450) k/uL Neutrophils # 8.4 H (1.3-7.7) k/uL Lymphocytes # 0.8 L (1.0-4.8) k/uL PT (10.0-12.5) sec INR (<1.2) APTT (22.0-30.0) sec ABG pH (7.35-7.45) ABG pCO2 (35-45) mmHg ABG pO2 (83-108) mmHg ABG HCO3 (21-25) mmol/L ABG O2 Saturation (94-97) % ABG Hematocrit (34.0-46.0) % ABG Ionized Calcium (4.5-5.3) mg/dL ABG Glucose (75-99) mg/dL Hemoglobin (11.4-16.0) gm/dL Potassium (3.5-5.1) mmol/L Chloride (98-107) mmol/L Carbon Dioxide (22-30) mmol/L BUN (7-17) mg/dL Glucose (74-99) mg/dL POC Glucose (mg/dL) 157 H 147 H (70-110) mg/dL Calcium (8.4-10.2) mg/dL Ionized Calcium Mario (4.5-5.3) mg/dL ALT (4-34) U/L Alkaline Phosphatase (38-126) U/L Total Protein (6.3-8.2) g/dL Albumin (3.5-5.0) g/dL Arterial Blood Glucose (75-99) mg/dL Crossmatch 03/16/24 03/17/24 03/17/24 Range/Units 22:57 00:07 01:26 WBC (3.8-10.6) k/uL RBC (3.80-5.40) m/uL Hgb (11.4-16.0) gm/dL Hct (34.0-46.0) % Plt Count (150-450) k/uL Neutrophils # (1.3-7.7) k/uL Lymphocytes # (1.0-4.8) k/uL PT (10.0-12.5) sec INR (<1.2) APTT (22.0-30.0) sec ABG pH (7.35-7.45) ABG pCO2 (35-45) mmHg ABG pO2 (83-108) mmHg ABG HCO3 (21-25) mmol/L ABG O2 Saturation (94-97) % ABG Hematocrit (34.0-46.0) % ABG Ionized Calcium (4.5-5.3) mg/dL ABG Glucose (75-99) mg/dL Hemoglobin (11.4-16.0) gm/dL Potassium (3.5-5.1) mmol/L Chloride (98-107) mmol/L Carbon Dioxide (22-30) mmol/L BUN (7-17) mg/dL Glucose (74-99) mg/dL POC Glucose (mg/dL) 140 H 134 H 129 H (70-110) mg/dL Calcium (8.4-10.2) mg/dL Ionized Calcium Mario (4.5-5.3) mg/dL ALT (4-34) U/L Alkaline Phosphatase (38-126) U/L Total Protein (6.3-8.2) g/dL Albumin (3.5-5.0) g/dL Arterial Blood Glucose (75-99) mg/dL Crossmatch 03/17/24 03/17/24 03/17/24 Range/Units 02:11 03:07 04:14 WBC (3.8-10.6) k/uL RBC (3.80-5.40) m/uL Hgb (11.4-16.0) gm/dL Hct (34.0-46.0) % Plt Count (150-450) k/uL Neutrophils # (1.3-7.7) k/uL Lymphocytes # (1.0-4.8) k/uL PT (10.0-12.5) sec INR (<1.2) APTT (22.0-30.0) sec ABG pH (7.35-7.45) ABG pCO2 (35-45) mmHg ABG pO2 (83-108) mmHg ABG HCO3 (21-25) mmol/L ABG O2 Saturation (94-97) % ABG Hematocrit (34.0-46.0) % ABG Ionized Calcium (4.5-5.3) mg/dL ABG Glucose (75-99) mg/dL Hemoglobin (11.4-16.0) gm/dL Potassium (3.5-5.1) mmol/L Chloride (98-107) mmol/L Carbon Dioxide (22-30) mmol/L BUN (7-17) mg/dL Glucose (74-99) mg/dL POC Glucose (mg/dL) 129 H 146 H 152 H (70-110) mg/dL Calcium (8.4-10.2) mg/dL Ionized Calcium Mario (4.5-5.3) mg/dL ALT (4-34) U/L Alkaline Phosphatase (38-126) U/L Total Protein (6.3-8.2) g/dL Albumin (3.5-5.0) g/dL Arterial Blood Glucose (75-99) mg/dL Crossmatch 03/17/24 03/17/24 03/17/24 Range/Units 04:15 04:15 05:15 WBC (3.8-10.6) k/uL RBC 2.31 L (3.80-5.40) m/uL Hgb 6.9 L* (11.4-16.0) gm/dL Hct 20.1 L (34.0-46.0) % Plt Count 128 L (150-450) k/uL Neutrophils # (1.3-7.7) k/uL Lymphocytes # 0.4 L (1.0-4.8) k/uL PT (10.0-12.5) sec INR (<1.2) APTT (22.0-30.0) sec ABG pH (7.35-7.45) ABG pCO2 (35-45) mmHg ABG pO2 (83-108) mmHg ABG HCO3 (21-25) mmol/L ABG O2 Saturation (94-97) % ABG Hematocrit (34.0-46.0) % ABG Ionized Calcium (4.5-5.3) mg/dL ABG Glucose (75-99) mg/dL Hemoglobin (11.4-16.0) gm/dL Potassium (3.5-5.1) mmol/L Chloride 115 H (98-107) mmol/L Carbon Dioxide 16 L (22-30) mmol/L BUN (7-17) mg/dL Glucose 138 H (74-99) mg/dL POC Glucose (mg/dL) 140 H (70-110) mg/dL Calcium 7.9 L (8.4-10.2) mg/dL Ionized Calcium Mario (4.5-5.3) mg/dL ALT (4-34) U/L Alkaline Phosphatase 30 L (38-126) U/L Total Protein 4.8 L (6.3-8.2) g/dL Albumin 3.4 L (3.5-5.0) g/dL Arterial Blood Glucose (75-99) mg/dL Crossmatch 03/17/24 03/17/24 03/17/24 Range/Units 05:47 06:08 07:06 WBC (3.8-10.6) k/uL RBC (3.80-5.40) m/uL Hgb (11.4-16.0) gm/dL Hct (34.0-46.0) % Plt Count (150-450) k/uL Neutrophils # (1.3-7.7) k/uL Lymphocytes # (1.0-4.8) k/uL PT (10.0-12.5) sec INR (<1.2) APTT (22.0-30.0) sec ABG pH (7.35-7.45) ABG pCO2 30 L (35-45) mmHg ABG pO2 138 H (83-108) mmHg ABG HCO3 18 L (21-25) mmol/L ABG O2 Saturation 99.5 H (94-97) % ABG Hematocrit (34.0-46.0) % ABG Ionized Calcium (4.5-5.3) mg/dL ABG Glucose (75-99) mg/dL Hemoglobin 6.7 L* (11.4-16.0) gm/dL Potassium (3.5-5.1) mmol/L Chloride (98-107) mmol/L Carbon Dioxide (22-30) mmol/L BUN (7-17) mg/dL Glucose (74-99) mg/dL POC Glucose (mg/dL) 133 H 128 H (70-110) mg/dL Calcium (8.4-10.2) mg/dL Ionized Calcium Mario (4.5-5.3) mg/dL ALT (4-34) U/L Alkaline Phosphatase (38-126) U/L Total Protein (6.3-8.2) g/dL Albumin (3.5-5.0) g/dL Arterial Blood Glucose (75-99) mg/dL Crossmatch 03/17/24 03/17/24 03/17/24 Range/Units 08:26 08:26 09:18 WBC (3.8-10.6) k/uL RBC (3.80-5.40) m/uL Hgb (11.4-16.0) gm/dL Hct (34.0-46.0) % Plt Count (150-450) k/uL Neutrophils # (1.3-7.7) k/uL Lymphocytes # (1.0-4.8) k/uL PT (10.0-12.5) sec INR (<1.2) APTT (22.0-30.0) sec ABG pH (7.35-7.45) ABG pCO2 31 L (35-45) mmHg ABG pO2 (83-108) mmHg ABG HCO3 20 L (21-25) mmol/L ABG O2 Saturation 98.6 H (94-97) % ABG Hematocrit (34.0-46.0) % ABG Ionized Calcium (4.5-5.3) mg/dL ABG Glucose (75-99) mg/dL Hemoglobin 8.3 L (11.4-16.0) gm/dL Potassium (3.5-5.1) mmol/L Chloride (98-107) mmol/L Carbon Dioxide (22-30) mmol/L BUN (7-17) mg/dL Glucose (74-99) mg/dL POC Glucose (mg/dL) 121 H 123 H (70-110) mg/dL Calcium (8.4-10.2) mg/dL Ionized Calcium Mario (4.5-5.3) mg/dL ALT (4-34) U/L Alkaline Phosphatase (38-126) U/L Total Protein (6.3-8.2) g/dL Albumin (3.5-5.0) g/dL Arterial Blood Glucose (75-99) mg/dL Crossmatch 03/17/24 03/17/24 03/17/24 Range/Units 10:12 10:19 10:19 WBC 11.0 H (3.8-10.6) k/uL RBC 2.84 L (3.80-5.40) m/uL Hgb 8.7 L D (11.4-16.0) gm/dL Hct 25.2 L (34.0-46.0) % Plt Count 148 L (150-450) k/uL Neutrophils # (1.3-7.7) k/uL Lymphocytes # (1.0-4.8) k/uL PT (10.0-12.5) sec INR (<1.2) APTT (22.0-30.0) sec ABG pH (7.35-7.45) ABG pCO2 (35-45) mmHg ABG pO2 (83-108) mmHg ABG HCO3 (21-25) mmol/L ABG O2 Saturation (94-97) % ABG Hematocrit (34.0-46.0) % ABG Ionized Calcium (4.5-5.3) mg/dL ABG Glucose (75-99) mg/dL Hemoglobin (11.4-16.0) gm/dL Potassium 3.3 L (3.5-5.1) mmol/L Chloride (98-107) mmol/L Carbon Dioxide (22-30) mmol/L BUN (7-17) mg/dL Glucose (74-99) mg/dL POC Glucose (mg/dL) 131 H (70-110) mg/dL Calcium (8.4-10.2) mg/dL Ionized Calcium Mario (4.5-5.3) mg/dL ALT (4-34) U/L Alkaline Phosphatase (38-126) U/L Total Protein (6.3-8.2) g/dL Albumin (3.5-5.0) g/dL Arterial Blood Glucose (75-99) mg/dL Crossmatch 03/17/24 Range/Units 12:01 WBC (3.8-10.6) k/uL RBC (3.80-5.40) m/uL Hgb (11.4-16.0) gm/dL Hct (34.0-46.0) % Plt Count (150-450) k/uL Neutrophils # (1.3-7.7) k/uL Lymphocytes # (1.0-4.8) k/uL PT (10.0-12.5) sec INR (<1.2) APTT (22.0-30.0) sec ABG pH (7.35-7.45) ABG pCO2 (35-45) mmHg ABG pO2 (83-108) mmHg ABG HCO3 (21-25) mmol/L ABG O2 Saturation (94-97) % ABG Hematocrit (34.0-46.0) % ABG Ionized Calcium (4.5-5.3) mg/dL ABG Glucose (75-99) mg/dL Hemoglobin (11.4-16.0) gm/dL Potassium (3.5-5.1) mmol/L Chloride (98-107) mmol/L Carbon Dioxide (22-30) mmol/L BUN (7-17) mg/dL Glucose (74-99) mg/dL POC Glucose (mg/dL) 125 H (70-110) mg/dL Calcium (8.4-10.2) mg/dL Ionized Calcium Mario (4.5-5.3) mg/dL ALT (4-34) U/L Alkaline Phosphatase (38-126) U/L Total Protein (6.3-8.2) g/dL Albumin (3.5-5.0) g/dL Arterial Blood Glucose (75-99) mg/dL Crossmatch Assessment and Plan Assessment: Postop day #1, status post off-pump four-vessel bypass surgery. Routine postoperative ventilator management. Acute non-ST segment elevation myocardial infarction. Multivessel coronary artery disease. Transient episode of atrial fibrillation. History of hypertension. History of hyperlipidemia. History of left subclavian stenosis. History of brain aneurysm, status post coiling 2018, and stenting, 2019. History of of left-sided nephrectomy. History of Mnire's disease. Hypothyroidism. Generalized anxiety disorder. Former tobacco dependence. Plan: Plan dated March 16, 2024. The patient is seen today in room 264. The patient just arrived back from the operating room the patient continues on the mechanical ventilator. Initial settings include volume assist-control, rate 16, tidal volume 400, FiO2 100%, and PEEP of 5. Blood gases showed a pO2 of 300, pCO2 of 33, and a pH of 7.399. The FiO2 was reduced down to 50%. The patient is on nitroglycerin at 5 mcg/min, propofol at 40 mcg/kg/min, saline at 50 cc an hour, and an insulin drip at 1.5 units an hour. The patient is also receiving amiodarone via protocol. The patient's cardiac output was 3.3 with an index of 1.9. Labs, x-rays, and all medications are reviewed. We will continue to follow. We will work towards an early extubation if possible. Plan dated March 17, 2024. The patient appears to be doing relatively well. Currently, she is on pressure support of 5 and CPAP of 5. She is weaning nicely. Rapid shallow breathing index is low. Labs are reviewed. Her blood gases show pO2 of 138, pCO2 30, pH is 7.38. The patient is on amiodarone 0.5 mg/min, and insulin drip at 2 units an hour. We will continue to follow make recommendations along the way. We anticipate the patient being extubated this morning. Will check a cuff leak, and evaluate her secretions, and her mental status. We will continue to follow make recommendations along the way. Prognosis is thought to be generally good. Time with Patient: Greater than 30
[2024-03-17] MEDS: POTASSIUM CHLORIDE 20 MEQ in WATER FOR INJECTION 1 100ML.BAG IVPB SCH (13:10)
[2024-03-17 13:26] LABS: Glucose,Whole Blood 123 mg/dL (70-110)
[2024-03-17] MEDS: METOPROLOL TARTRATE 25 MG TAB PO STA (15:05)
[2024-03-17 15:20] LABS: Glucose,Whole Blood 124 mg/dL (70-110)
[2024-03-17] MEDS ORDERED: METOPROLOL TARTRATE 25 MG TAB PO SCH (16:00)
[2024-03-17 16:08] LABS: Glucose,Whole Blood 116 mg/dL (70-110)
[2024-03-17] MEDS: FERROUS SULFATE 325 MG TAB PO SCH (17:03)
[2024-03-17] MEDS: ASCORBIC ACID 500 MG TAB PO SCH (17:03)
[2024-03-17 19:05] LABS: Glucose,Whole Blood 97 mg/dL (70-110)
[2024-03-17 19:14] LABS: HCT 24.9 % (34.0-46.0); HGB 8.5 gm/dL (11.4-16.0); MCHC 34.2 g/dL (31.0-37.0); MCV 87.5 fL (80.0-100.0); Mean Platelet Volume 9.2; Platelet Count 147 k/uL (150-450); RBC 2.85 m/uL (3.80-5.40); RDW 14.7 % (11.5-15.5); WBC 13.4 k/uL (3.8-10.6)
[2024-03-17] MEDS: METOCLOPRAMIDE 5 MG/ML 2 ML VIAL IVP PRN (19:29)
[2024-03-17] MEDS: METOPROLOL TARTRATE 50 MG TAB PO SCH (20:03)
[2024-03-17 20:11] LABS: Glucose,Whole Blood 126 mg/dL (70-110)
[2024-03-17 20:58] LABS: Glucose,Whole Blood 136 mg/dL (70-110)
[2024-03-17 22:09] LABS: Glucose,Whole Blood 117 mg/dL (70-110)
[2024-03-17 23:00] LABS: Glucose,Whole Blood 108 mg/dL (70-110)
[2024-03-18 00:31] LABS: Glucose,Whole Blood 122 mg/dL (70-110)
[2024-03-18 01:39] LABS: Glucose,Whole Blood 116 mg/dL (70-110)
[2024-03-18 02:11] LABS: Glucose,Whole Blood 108 mg/dL (70-110)
[2024-03-18 02:58] LABS: Glucose,Whole Blood 114 mg/dL (70-110)
[2024-03-18 04:13] LABS: Glucose,Whole Blood 116 mg/dL (70-110)
[2024-03-18 04:24] LABS: Basophils % (A) 0 %; Eosinophils % (A) 0 %; HCT 24.8 % (34.0-46.0); HGB 8.6 gm/dL (11.4-16.0); Lymphocytes # (A) 1.1 k/uL (1.0-4.8); Lymphocytes % (A) 7 %; MCH 31.1 pg (25.0-35.0); MCHC 34.5 g/dL (31.0-37.0); Mean Platelet Volume 9.1; Monocytes # (A) 1.2 k/uL (0-1.0); Monocytes % (A) 8 %; Neutrophils # (A) 12.8 k/uL (1.3-7.7); Neutrophils % (A) 83 %; Platelet Count 152 k/uL (150-450); RBC 2.75 m/uL (3.80-5.40); RDW 14.6 % (11.5-15.5); WBC 15.4 k/uL (3.8-10.6)
[2024-03-18 04:34] LABS: Ionized Calcium 4.7 mg/dL (4.5-5.3)
[2024-03-18 04:42] LABS: ALT 12 U/L (4-34); AST 38 U/L (14-36); African American GFR (CKD) 79 (>60 ml/min/1.73 sqM); Albumin 3.4 g/dL (3.5-5.0); Alkaline Phosphatase 51 U/L (38-126); Anion Gap 7 mmol/L; Blood Urea Nitrogen 16 mg/dL (7-17); Calcium 8.4 mg/dL (8.4-10.2); Carbon Dioxide 18 mmol/L (22-30); Chloride 112 mmol/L (98-107); Glucose 105 mg/dL (74-99); Non-African American GFR(CKD) 68 (>60 ml/min/1.73 sqM); Potassium 4.3 mmol/L (3.5-5.1); Sodium 137 mmol/L (137-145); Total Protein 5.1 g/dL (6.3-8.2)
[2024-03-18 05:02] LABS: Glucose,Whole Blood 94 mg/dL (70-110)
[2024-03-18 06:04] LABS: Glucose,Whole Blood 113 mg/dL (70-110)
--- NOTE | 2024-03-18 06:35 | XR ---
EXAMINATION TYPE: XR chest 1V portable DATE OF EXAM: 03/18/2024 5:20 AM COMPARISON: 03/17/2024 CLINICAL INDICATION: Female, 68 years old with history of Post Operative Cardiac Surgery, TECHNIQUE: XR chest 1V portable view(s) obtained. FINDINGS: The heart size is normal. The pulmonary vasculature is normal. There is interval development of a right basilar infiltrate or effusion. Baldwin-Rae catheter tip is in the right main pulmonary artery region. Left-sided chest tube is present . Small left apical pneumothorax stable. Mediastinal tube is midline. Additional catheters inferior t o the heart. IMPRESSION: 1. Interval development left of right lower lobe infiltrate or pleural effusion. 2. Lines and catheters discussed above. 3. Small left apical thorax [facility], , 03/18/2024 6:33 AM
[2024-03-18] MEDS: METOPROLOL TARTRATE 25 MG TAB PO STA (08:34)
[2024-03-18] MEDS: FUROSEMIDE 10 MG/ML 2 ML VIAL IV STA (08:34)
--- NOTE | 2024-03-18 08:50 | US ---
EXAMINATION TYPE: US chest DATE OF EXAM: 03/18/2024 COMPARISON: NONE CLINICAL INDICATION: Female, 68 years old with history of right pleural effusion; left side possible fluid. TECHNIQUE: Grayscale imaging of the chest. Targeted ultrasound of the posterior lower bilateral eris thoraces FINDINGS: EXAM MEASUREMENTS: Right Pleural Effusion pocket size: 0 cm Right skin surface to fluid distance: cm Left Pleural Effusion pocket size: 2 cm Left skin surface to fluid distance: 2.4 cm Left side not marked for possible thoracentesis outside the dept. Pulmonologists are able to review the images in the patient?s EMR. IMPRESSIONS: Left pleural effusion [facility], , 03/18/2024 8:47 AM
[2024-03-18 09:14] LABS: ABG Base Excess -6.1 mmol/L; ABG HCO3 18 mmol/L (21-25); ABG Oxygen Saturation 94.1 % (94-97); ABG PCO2 28 mmHg (35-45); ABG PO2 68 mmHg (83-108); ABG TCO2 19 mmol/L (19-24); Allen Test Performed? Yes
[2024-03-18] MEDS: SODIUM BICARB 8.4% 50 ML SYR (1 MEQ/ML) IV STA ×2 (10:17→10:18)
[2024-03-18] MEDS: LACTATED RINGERS 1,000 ML IV SCH (10:30)
[2024-03-18] MEDS: ALBUMIN HUMAN 25% 50 ML in EMPTY BAG 1 BAG IVPB ONE (10:30)
[2024-03-18 11:37] LABS: Glucose,Whole Blood 117 mg/dL (70-110)
--- NOTE | 2024-03-18 12:23 | P.PN ---
Subjective Progress Note Date: 03/18/24 Patient seen in the ICU. She is extubated. She is sitting up in the chair. She is still very lethargic. Per ICU nurse patient's O2 requirements have been worsening. Patient currently on BiPAP. 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 A1c on 03/11/2024 was 5.4. Blood glucose range is 941 22 As per cardiology and CT surgery continue with aspirin 81 mg p.o. daily, atorvastatin 40 mg p.o. daily, Plavix 75 mg p.o. daily, Acute hypoxic respiratory failure likely due to volume overload Chest x-ray this morning showed bilateral consolidation and possible pleural effusion Patient had ultrasound chest that showed that the pleural effusion was not big enough for thoracentesis Patient was given one-time dose of IV Lasix Defer further diuretics to primary team Patient currently on BiPAP. Wean O2 as tolerated A-fib with RVR Resume anticoagulation once cleared by primary team and cardiology Continue with amiodarone History of left nephrectomy Creatinine stable at 0.75 Hypothyroidism Continue with levothyroxine 88 mcg p.o. 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 status post brain calling followed by stenting Stable DVT prophylaxis: As per CT surgery patient is on subcu heparin Objective - Vital Signs Vital signs: Vital Signs Temp 99.5 F 03/18/24 00:00 Pulse 90 03/18/24 11:59 Resp 18 03/18/24 11:15 BP 137/58 03/18/24 11:15 Pulse Ox 97 03/18/24 11:15 FiO2 60 03/18/24 11:32 Intake & Output 03/17/24 03/18/24 03/18/24 18:59 06:59 18:59 Intake Total 1698.324 502.248 314 Output Total 865 475 780 Balance 833.324 27.248 -466 Weight 80.8 kg 74.9 kg Intake: IV 1157 489 314 ACETAMINOPHEN IV (For NPO 100 ) 1,000 mg In Empty Bag 1 bag @ 400 mls/hr IVPB Q6HR [facility] Rx#:[id number] Albumin Human 25% 50 ml 50 In Empty Bag 1 bag @ 50 mls/hr IVPB ONCE ONE Rx#: [id number] Lactated Ringers 1,000 ml 60 @ 20 mls/hr IV .Q24H [facility] Rx#:[id number] NS for cardiac output 110 60 30 NS for pressure lines 117 99 54 Potassium Chloride 20 meq 200 In Water For Injection 1 100ml.bag @ 50 mls/hr IVPB Q2H [facility] Rx#: [id number] Sodium Chloride 0.9% 1, 240 330 120 000 ml @ 30 mls/hr IV . Q24H [facility] Rx#:[id number] Sodium Chloride 0.9% 1, 340 000 ml @ 50 mls/hr IV . Q20H [facility] Rx#:[id number] ceFAZolin 2 gm In Sodium 50 Chloride 0.9% 50 ml @ 100 mls/hr IVPB Q8HR [facility] Rx# :[id number] Intake, IV Titration 263.324 13.248 Amount Amiodarone 450 mg In 250 Dextrose 5% in Water 250 ml @ 0.5 MG/MIN 16.667 mls/hr IV .Q15H [facility] Rx#: [id number] Insulin Regular 100 unit 13.324 13.248 In Sodium Chloride 0.9% 100 ml @ Per Protocol IV .Q0M [facility] Rx#:[id number] Blood Product 278 Rc Pheresis 2 As3 Unit 278 [id number] Output: Chest Tube Drainage [address] 106 90 100 MSCT x 2 160 70 60 Gastric Drainage 150 Drainage 110 50 Left Arm 25 10 Rt leg 85 40 Urine 339 315 570 Other: Voiding Method Indwelling Catheter Indwelling Catheter Indwelling Catheter ABP, PAP, CO, CI - Last Documented Arterial Blood Pressure 154/62 Pulmonary Artery Pressure 24 Cardiac Output 3.6 Cardiac Index 2 - Labs CBC & Chem 7: 03/18/24 04:13 03/18/24 04:13 Labs: Abnormal Lab Results - Last 24 Hours (Table) 03/15/24 03/17/24 03/17/24 Range/Units 06:24 13:15 15:08 WBC (3.8-10.6) k/uL RBC (3.80-5.40) m/uL Hgb (11.4-16.0) gm/dL Hct (34.0-46.0) % Plt Count (150-450) k/uL Neutrophils # (1.3-7.7) k/uL Monocytes # (0-1.0) k/uL ABG pCO2 (35-45) mmHg ABG pO2 (83-108) mmHg ABG HCO3 (21-25) mmol/L Hemoglobin (11.4-16.0) gm/dL Chloride (98-107) mmol/L Carbon Dioxide (22-30) mmol/L Glucose (74-99) mg/dL POC Glucose (mg/dL) 123 H 124 H (70-110) mg/dL AST (14-36) U/L Total Protein (6.3-8.2) g/dL Albumin (3.5-5.0) g/dL Crossmatch See Detail 03/17/24 03/17/24 03/17/24 Range/Units 15:56 18:54 20:02 WBC 13.4 H (3.8-10.6) k/uL RBC 2.85 L (3.80-5.40) m/uL Hgb 8.5 L (11.4-16.0) gm/dL Hct 24.9 L (34.0-46.0) % Plt Count 147 L (150-450) k/uL Neutrophils # (1.3-7.7) k/uL Monocytes # (0-1.0) k/uL ABG pCO2 (35-45) mmHg ABG pO2 (83-108) mmHg ABG HCO3 (21-25) mmol/L Hemoglobin (11.4-16.0) gm/dL Chloride (98-107) mmol/L Carbon Dioxide (22-30) mmol/L Glucose (74-99) mg/dL POC Glucose (mg/dL) 116 H 126 H (70-110) mg/dL AST (14-36) U/L Total Protein (6.3-8.2) g/dL Albumin (3.5-5.0) g/dL Crossmatch 03/17/24 03/17/24 03/18/24 Range/Units 20:57 22:07 00:19 WBC (3.8-10.6) k/uL RBC (3.80-5.40) m/uL Hgb (11.4-16.0) gm/dL Hct (34.0-46.0) % Plt Count (150-450) k/uL Neutrophils # (1.3-7.7) k/uL Monocytes # (0-1.0) k/uL ABG pCO2 (35-45) mmHg ABG pO2 (83-108) mmHg ABG HCO3 (21-25) mmol/L Hemoglobin (11.4-16.0) gm/dL Chloride (98-107) mmol/L Carbon Dioxide (22-30) mmol/L Glucose (74-99) mg/dL POC Glucose (mg/dL) 136 H 117 H 122 H (70-110) mg/dL AST (14-36) U/L Total Protein (6.3-8.2) g/dL Albumin (3.5-5.0) g/dL Crossmatch 03/18/24 03/18/24 03/18/24 Range/Units 00:57 02:56 04:11 WBC (3.8-10.6) k/uL RBC (3.80-5.40) m/uL Hgb (11.4-16.0) gm/dL Hct (34.0-46.0) % Plt Count (150-450) k/uL Neutrophils # (1.3-7.7) k/uL Monocytes # (0-1.0) k/uL ABG pCO2 (35-45) mmHg ABG pO2 (83-108) mmHg ABG HCO3 (21-25) mmol/L Hemoglobin (11.4-16.0) gm/dL Chloride (98-107) mmol/L Carbon Dioxide (22-30) mmol/L Glucose (74-99) mg/dL POC Glucose (mg/dL) 116 H 114 H 116 H (70-110) mg/dL AST (14-36) U/L Total Protein (6.3-8.2) g/dL Albumin (3.5-5.0) g/dL Crossmatch 03/18/24 03/18/24 03/18/24 Range/Units 04:13 04:13 06:01 WBC 15.4 H (3.8-10.6) k/uL RBC 2.75 L (3.80-5.40) m/uL Hgb 8.6 L (11.4-16.0) gm/dL Hct 24.8 L (34.0-46.0) % Plt Count (150-450) k/uL Neutrophils # 12.8 H (1.3-7.7) k/uL Monocytes # 1.2 H (0-1.0) k/uL ABG pCO2 (35-45) mmHg ABG pO2 (83-108) mmHg ABG HCO3 (21-25) mmol/L Hemoglobin (11.4-16.0) gm/dL Chloride 112 H (98-107) mmol/L Carbon Dioxide 18 L (22-30) mmol/L Glucose 105 H (74-99) mg/dL POC Glucose (mg/dL) 113 H (70-110) mg/dL AST 38 H (14-36) U/L Total Protein 5.1 L (6.3-8.2) g/dL Albumin 3.4 L (3.5-5.0) g/dL Crossmatch 03/18/24 03/18/24 Range/Units 09:12 11:36 WBC (3.8-10.6) k/uL RBC (3.80-5.40) m/uL Hgb (11.4-16.0) gm/dL Hct (34.0-46.0) % Plt Count (150-450) k/uL Neutrophils # (1.3-7.7) k/uL Monocytes # (0-1.0) k/uL ABG pCO2 28 L (35-45) mmHg ABG pO2 68 L (83-108) mmHg ABG HCO3 18 L (21-25) mmol/L Hemoglobin 8.9 L (11.4-16.0) gm/dL Chloride (98-107) mmol/L Carbon Dioxide (22-30) mmol/L Glucose (74-99) mg/dL POC Glucose (mg/dL) 117 H (70-110) mg/dL AST (14-36) U/L Total Protein (6.3-8.2) g/dL Albumin (3.5-5.0) g/dL Crossmatch
--- NOTE | 2024-03-18 13:09 | P.PN ---
Subjective Progress Note Date: 03/18/24 Principal diagnosis: Coronary artery disease. Patient is a 68-year-old female with past medical history significant for brain aneurysm with previous coiling and stent, hypertension, hyperlipidemia, left subclavian stenosis, previous left-sided nephrectomy, hypothyroidism, Mnire's disease, generalized anxiety disorder, and former tobacco dependence. Patient denies any pre-existing lung disease. She does have significant smoking history, smoked 1 pack/day for over 30 years. Patient's primary care provider is marixa Orta out of Dr. Carranza's office. Patient presented to the emergency department back on March 09 with chest pain. Apparently, earlier that morning she was awoken with sudden onset substernal chest pain/tightness. She initially thought this was a anxiety attack as she does have a history of anxiety. No nausea, diaphoresis, shortness of breath. 30 minutes later, the feeling did not subside's, so she did call EMS. Patient did reportedly have a transient episode of A-fib RVR in route to the hospital. Patient was admitted with a diagnosis of non-ST elevation MD. Heart catheterization performed 03/10/2024 demonstrating severe three-vessel coronary artery disease with significant disease involvment of the proximal LAD, demonstrating 60 to 70% , left circumflex artery with 70% stenosis. and 90% stenosis of a nondominant RCA. Follow-up echocardiogram preserved left ventricular ejection fraction of 55 to 60%. No significant valvular abnormalities reported. Cardiothoracic surgery was consulted, patient is scheduled for surgical revascularization tomorrow morning. We were consulted for preoperative pulmonary clearance ventilator management following the procedure. As stated above, patient has no diagnosed history of pre-existing lung disease. She does have significant smoking history over [id number]. Patient did have bedside spirometry which showed an FEV1 2.35 L or 99% of predicted. Chest CTA done on arrival did not show any evidence of pulmonary emboli. There was evidence of mild emphysematous changes. Biapical scarring. Few borderline mildly enlarged lymph nodes in the hilum measuring 1.2 cm. Otherwise no acute findings. Most recent CBC done yesterday with a WBC count 8.4, hemoglobin 14.1, hematocrit 43.2, platelets 251. aPTT currently therapeutic at 67.7. BMP from yesterday: Sodium 140, potassium 4.3, chloride 110, serum bicarb 21, BUN 22, creatinine 0.93, glucose 93. Patient is currently walking the halls on room air. She has no respiratory distress. No current chest pain. Does have normal saline infusing at 50 mL/h. Also, heparin is infusion per protocol. Surgery is scheduled for tomorrow morning. Progress note dated March 16, 2024. 68-year-old female seen in consultation yesterday. Please see the note above. The patient had a off-pump four-vessel bypass surgery done today by Dr. Conklin. Please refer to the operative note. The patient is currently on the ventilator. Ventilator settings include volume assist-control, rate 16, tidal volume 400, FiO2 50%, and PEEP of 5. Blood gases on same settings, with FiO2 of 100%, showed a pO2 of 300, pCO2 of 33, and a pH of 7.399. The patient is on nitroglycerin at 5 mcg/min, propofol at 40 mcg/kg/min, 0.9 at 50 cc an hour, and amiodarone per protocol. In addition, the patient be started on an insulin drip at 1.5 units an hour. The patient's cardiac output is 3.3, and the index is 1.9. Pulmonary artery pressures 27/13. Current labs include a white count 7.9, hemoglobin 8.2, hematocrit 23.7, and a platelet count of 111,000. Sodium 141, potassium 4, chlorides 117, CO2 20, BUN 16, creatinine 0.71. Glucose is 151. Chest x-ray reveals an endotracheal tube, which is 5 cm above the tracheal jaki. There is a left-sided chest tube present. There is a mediastinal tube in the midline. Nasogastric tube was also noted, as well as a Underwood-Rae catheter. There are some bibasilar atelectasis, and a small right apical pneumothorax. Progress note dated March 17, 2024. 68-year-old female seen today in room 264. She is postop day #1, status post off-pump four-vessel bypass surgery. She is on volume assist-control, rate 14, tidal volume 400, FiO2 40%, PEEP of 5. Blood gases show pO2 of 138, pCO2 of 30, pH is 7.38. Repeat blood gases show pO2 of 98, pCO2 31, pH is 7.41. She is on pressure support of 5 and CPAP of 5. The patient can be extubated. Rapid shallow breathing index is 38. The patient is getting saline at 50 cc an hour, insulin at 2 units an hour, and amiodarone 0.5 mg/min. White count is 11, hemog lobin 8.7, hematocrit 25.2, platelet count normal. Sodium 139, potassium 3.3, chlorides 115, CO2 16, BUN 13, creatinine 0.75. Calcium is 7.9. Albumin is 3.4. Chest x-ray shows some postsurgical changes. Previous right apical pneumothorax is not seen. Progress note dated March 18, 2024. 68-year-old female seen today in room 264. She is postoperative day #2, status post off-pump four-vessel bypass grafting. The patient saturations were a bit low. We placed her on BiPAP, with settings of 12/6, and 60%. Patient is getting saline at 20 cc an hour. The patient blood gases showed a pO2 of 68, pCO2 of 28, and a pH of 7.40. This blood gas was consistent with a mixed acid- base disturbance, including a respiratory alkalosis, and metabolic acidosis. She has a nonanion gap hyperchloremic metabolic acidosis. The patient is getting saline at 20 cc an hour. An ultrasound of the right chest, reveals only small amounts of fluid. The patient received Lasix 20 mg IV push. Current labo ratory data includes a white count 15.4, hemoglobin 8.6, hematocrit 24.8, and a platelet count of 152,000. Sodium 137, potassium 4.3, chlorides 112, CO2 18, BUN 16, creatinine 0.87. Glucose 117. Albumin 3.4. X-ray shows a right lower lobe infiltrate/effusion. Small left apical pneumothorax is seen. Objective - Vital Signs Vital signs: Vital Signs Temp 99.5 F 03/18/24 00:00 Pulse 89 03/18/24 12:30 Resp 20 03/18/24 12:30 BP 131/55 03/18/24 12:30 Pulse Ox 95 03/18/24 12:30 FiO2 80 03/18/24 12:30 Intake & Output 03/17/24 03/18/24 03/18/24 18:59 06:59 18:59 Intake Total 1698.324 502.248 314 Output Total 865 475 780 Balance 833.324 27.248 -466 Weight 80.8 kg 74.9 kg Intake: IV 1157 489 314 ACETAMINOPHEN IV (For NPO 100 ) 1,000 mg In Empty Bag 1 bag @ 400 mls/hr IVPB Q6HR [facility] Rx#:[id number] Albumin Human 25% 50 ml 50 In Empty Bag 1 bag @ 50 mls/hr IVPB ONCE ONE Rx#: [id number] Lactated Ringers 1,000 ml 60 @ 20 mls/hr IV .Q24H [facility] Rx#:[id number] NS for cardiac output 110 60 30 NS for pressure lines 117 99 54 Potassium Chloride 20 meq 200 In Water For Injection 1 100ml.bag @ 50 mls/hr IVPB Q2H [facility] Rx#: [id number] Sodium Chloride 0.9% 1, 240 330 120 000 ml @ 30 mls/hr IV . Q24H [facility] Rx#:[id number] Sodium Chloride 0.9% 1, 340 000 ml @ 50 mls/hr IV . Q20H [facility] Rx#:[id number] ceFAZolin 2 gm In Sodium 50 Chloride 0.9% 50 ml @ 100 mls/hr IVPB Q8HR [facility] Rx# :[id number] Intake, IV Titration 263.324 13.248 Amount Amiodarone 450 mg In 250 Dextrose 5% in Water 250 ml @ 0.5 MG/MIN 16.667 mls/hr IV .Q15H [facility] Rx#: [id number] Insulin Regular 100 unit 13.324 13.248 In Sodium Chloride 0.9% 100 ml @ Per Protocol IV .Q0M [facility] Rx#:[id number] Blood Product 278 Rc Pheresis 2 As3 Unit 278 [id number] Output: Chest Tube Drainage [address] 106 90 100 MSCT x 2 160 70 60 Gastric Drainage 150 Drainage 110 50 Left Arm 25 10 Rt leg 85 40 Urine 339 315 570 Other: Voiding Method Indwelling Catheter Indwelling Catheter Indwelling Catheter ABP, PAP, CO, CI - Last Documented Arterial Blood Pressure 141/48 Pulmonary Artery Pressure 27/14 Cardiac Output 4.8 Cardiac Index 2.7 - Exam No acute distress, currently on BiPAP. HEENT examination is grossly unremarkable. Neck supple. Full range of motion. No adenopathy thyromegaly or neck vein distention. Cardiovascular examination reveals regular rhythm rate. S1-S2 normal. No S3 or S4. No discernible murmur noted. Lungs reveal clear breath sounds. Breath sounds are equal bilaterally. No adventitious lung sounds including wheezes rhonchi or crackles. Abdomen soft bowel sounds. No masses. Extremities are intact. No cyanosis clubbing or edema. Skin is without rash or lesion. Neurologic examination is within normal range. No focal deficits. - Labs CBC & Chem 7: 03/18/24 04:13 03/18/24 04:13 Labs: Abnormal Lab Results - Last 24 Hours (Table) 03/15/24 03/17/24 03/17/24 Range/Units 06:24 13:15 15:08 WBC (3.8-10.6) k/uL RBC (3.80-5.40) m/uL Hgb (11.4-16.0) gm/dL Hct (34.0-46.0) % Plt Count (150-450) k/uL Neutrophils # (1.3-7.7) k/uL Monocytes # (0-1.0) k/uL ABG pCO2 (35-45) mmHg ABG pO2 (83-108) mmHg ABG HCO3 (21-25) mmol/L Hemoglobin (11.4-16.0) gm/dL Chloride (98-107) mmol/L Carbon Dioxide (22-30) mmol/L Glucose (74-99) mg/dL POC Glucose (mg/dL) 123 H 124 H (70-110) mg/dL AST (14-36) U/L Total Protein (6.3-8.2) g/dL Albumin (3.5-5.0) g/dL Crossmatch See Detail 03/17/24 03/17/24 03/17/24 Range/Units 15:56 18:54 20:02 WBC 13.4 H (3.8-10.6) k/uL RBC 2.85 L (3.80-5.40) m/uL Hgb 8.5 L (11.4-16.0) gm/dL Hct 24.9 L (34.0-46.0) % Plt Count 147 L (150-450) k/uL Neutrophils # (1.3-7.7) k/uL Monocytes # (0-1.0) k/uL ABG pCO2 (35-45) mmHg ABG pO2 (83-108) mmHg ABG HCO3 (21-25) mmol/L Hemoglobin (11.4-16.0) gm/dL Chloride (98-107) mmol/L Carbon Dioxide (22-30) mmol/L Glucose (74-99) mg/dL POC Glucose (mg/dL) 116 H 126 H (70-110) mg/dL AST (14-36) U/L Total Protein (6.3-8.2) g/dL Albumin (3.5-5.0) g/dL Crossmatch 03/17/24 03/17/24 03/18/24 Range/Units 20:57 22:07 00:19 WBC (3.8-10.6) k/uL RBC (3.80-5.40) m/uL Hgb (11.4-16.0) gm/dL Hct (34.0-46.0) % Plt Count (150-450) k/uL Neutrophils # (1.3-7.7) k/uL Monocytes # (0-1.0) k/uL ABG pCO2 (35-45) mmHg ABG pO2 (83-108) mmHg ABG HCO3 (21-25) mmol/L Hemoglobin (11.4-16.0) gm/dL Chloride (98-107) mmol/L Carbon Dioxide (22-30) mmol/L Glucose (74-99) mg/dL POC Glucose (mg/dL) 136 H 117 H 122 H (70-110) mg/dL AST (14-36) U/L Total Protein (6.3-8.2) g/dL Albumin (3.5-5.0) g/dL Crossmatch 03/18/24 03/18/24 03/18/24 Range/Units 00:57 02:56 04:11 WBC (3.8-10.6) k/uL RBC (3.80-5.40) m/uL Hgb (11.4-16.0) gm/dL Hct (34.0-46.0) % Plt Count (150-450) k/uL Neutrophils # (1.3-7.7) k/uL Monocytes # (0-1.0) k/uL ABG pCO2 (35-45) mmHg ABG pO2 (83-108) mmHg ABG HCO3 (21-25) mmol/L Hemoglobin (11.4-16.0) gm/dL Chloride (98-107) mmol/L Carbon Dioxide (22-30) mmol/L Glucose (74-99) mg/dL POC Glucose (mg/dL) 116 H 114 H 116 H (70-110) mg/dL AST (14-36) U/L Total Protein (6.3-8.2) g/dL Albumin (3.5-5.0) g/dL Crossmatch 03/18/24 03/18/24 03/18/24 Range/Units 04:13 04:13 06:01 WBC 15.4 H (3.8-10.6) k/uL RBC 2.75 L (3.80-5.40) m/uL Hgb 8.6 L (11.4-16.0) gm/dL Hct 24.8 L (34.0-46.0) % Plt Count (150-450) k/uL Neutrophils # 12.8 H (1.3-7.7) k/uL Monocytes # 1.2 H (0-1.0) k/uL ABG pCO2 (35-45) mmHg ABG pO2 (83-108) mmHg ABG HCO3 (21-25) mmol/L Hemoglobin (11.4-16.0) gm/dL Chloride 112 H (98-107) mmol/L Carbon Dioxide 18 L (22-30) mmol/L Glucose 105 H (74-99) mg/dL POC Glucose (mg/dL) 113 H (70-110) mg/dL AST 38 H (14-36) U/L Total Protein 5.1 L (6.3-8.2) g/dL Albumin 3.4 L (3.5-5.0) g/dL Crossmatch 03/18/24 03/18/24 Range/Units 09:12 11:36 WBC (3.8-10.6) k/uL RBC (3.80-5.40) m/uL Hgb (11.4-16.0) gm/dL Hct (34.0-46.0) % Plt Count (150-450) k/uL Neutrophils # (1.3-7.7) k/uL Monocytes # (0-1.0) k/uL ABG pCO2 28 L (35-45) mmHg ABG pO2 68 L (83-108) mmHg ABG HCO3 18 L (21-25) mmol/L Hemoglobin 8.9 L (11.4-16.0) gm/dL Chloride (98-107) mmol/L Carbon Dioxide (22-30) mmol/L Glucose (74-99) mg/dL POC Glucose (mg/dL) 117 H (70-110) mg/dL AST (14-36) U/L Total Protein (6.3-8.2) g/dL Albumin (3.5-5.0) g/dL Crossmatch Assessment and Plan Assessment: Postop day #2, status post off-pump four-vessel bypass surgery. Routine postoperative ventilator management. Acute non-ST segment elevation myocardial infarction. Multivessel coronary artery disease. Transient episode of atrial fibrillation. History of hypertension. History of hyperlipidemia. History of left subclavian stenosis. History of brain aneurysm, status post coiling 2018, and stenting, 2019. History of of left-sided nephrectomy. History of Mnire's disease. Hypothyroidism. Generalized anxiety disorder. Former tobacco dependence. Plan: Plan dated March 16, 2024. The patient is seen today in room 264. The patient just arrived back from the operating room the patient continues on the mechanical ventilator. Initial settings include volume assist-control, rate 16, tidal volume 400, FiO2 100%, and PEEP of 5. Blood gases showed a pO2 of 300, pCO2 of 33, and a pH of 7.399. The FiO2 was reduced down to 50%. The patient is on nitroglycerin at 5 mcg/min, propofol at 40 mcg/kg/min, saline at 50 cc an hour, and an insulin drip at 1.5 units an hour. The patient is also receiving amiodarone via protocol. The patient's cardiac output was 3.3 with an index of 1.9. Labs, x-rays, and all medications are reviewed. We will continue to follow. We will work towards an early extubation if possible. Plan dated March 17, 2024. The patient appears to be doing relatively well. Currently, she is on pressure support of 5 and CPAP of 5. She is weaning nicely. Rapid shallow breathing index is low. Labs are reviewed. Her blood gases show pO2 of 138, pCO2 30, pH is 7.38. The patient is on amiodarone 0.5 mg/min, and insulin drip at 2 units an hour. We will continue to follow make recommendations along the way. We anticipate the patient being extubated this morning. Will check a cuff leak, and evaluate her secretions, and her mental status. We will continue to follow make recommendations along the way. Prognosis is thought to be generally good. Plan dated March 18, 2024. The patient is seen today in room 264. Her saturations were a bit low so she was placed on BiPAP. BiPAP settings are 12/6, and 60%. The patient did receive Lasix 20 mg IV push. Ultrasound of the right chest revealed only a small pleural effusion. The patient's blood gases show pO2 of 68, pCO2 28, and a pH of 7.40. This blood gases consistent with a mixed acid-base disturbance. The patient will receive 1-1/2 A of sodium bicarbonate IV push. We will continue to follow. Labs, x-rays, and all medications are reviewed. Prognosis is guarded. Time with Patient: Greater than 30
--- NOTE | 2024-03-18 14:58 | P.PN ---
Subjective Progress Note Date: 03/18/24 Principal diagnosis: Coronary artery disease, non-STEMI this admission, new onset atrial fibrillation. Past medical history significant for brain aneurysm with coiling in 2019 and stent in 2020, hypertension, hyperlipidemia, hypothyroid, asymptomatic left subclavian stenosis, left sided nephrectomy, right renal artery stenosis 60% on CTA in 2020, Mnire's disease, previous tobacco dependence, anxiety, family history of myocardial infarction in both her mother and her father POD#2 off-pump myocardial revascularization with coronary artery bypass grafting x 4 including free MONZON sequentially to diagonal and LAD, left radial artery graft to posterior lateral branch of the circumflex coronary artery, saphenous vein graft to the first obtuse marginal coronary artery. Endovascular vein harvest of the greater saphenous vein from the right lower extremity from mid calf to groin. Endovascular harvest of the left radial artery. Modified Morgan- Maze procedure with bilateral pulmonary vein ablation and ligation of the left atrial appendage with a 40 mm AtriCure clip Acute blood loss anemia and thrombocytopenia, somewhat expected given hemodilution. The patient was seen and examined in follow-up today March 18, 2024 at her bedside in the intensive care unit. She is currently sitting up to the bedside chair, is awake, alert, oriented x 3 and is in no acute apparent distress. She denies any shortness of breath with sitting in the chair currently, although reports that it is at times difficult to take deep breaths due to some pain on her left side due to her chest tube. She is also complaining of bouts of nausea and has refused her breakfast. Oxygen saturations are currently 88% on 15 L high flow nasal cannula and she is achieving 1000 mL on her incentive spirometry with much encouragement. An ultrasound of her right chest was completed this morning with no markings placed as it showed a 2.0 cm fluid pocket. The patient has been placed on BiPAP 12/5 with FiO2 100%. Bedside telemetry showing normal sinus rhythm heart rate 95 bpm. Right IJ cordis and Nikolski-Rae catheter remains in place with current hemodynamic showing a cardiac output of 4.8, cardiac index 2.7, PA pressures 28/14, CVP 11 mmHg and SVR 1282. Mediastinal and left pleural chest tubes remain in place to low continuous wall suction -20 cm H2O. No air leak is present. Draining thin serosanguineous drainage. Left pleural chest tube drained 60 mL output in the last 8 hours and 220 mL output in the last 24 hours. Mediastinal chest tube drained 40 mL output in last 8 hours and 240 mL output in the last 24 hours. The patient was transfused for 1 unit of packed red blood cells yesterday for hemoglobin of 6.9, and her hemoglobin today is 8.6. Laboratory and chest x-ray results reviewed. Objective - Vital Signs Vital signs: Vital Signs Temp 99.5 F 03/18/24 00:00 Pulse 104 H 03/18/24 07:00 Resp 15 03/18/24 07:00 BP 148/64 03/18/24 07:00 Pulse Ox 83 L 03/18/24 07:00 FiO2 100 03/18/24 08:09 Intake & Output 03/17/24 03/18/24 03/18/24 18:59 06:59 18:59 Intake Total 1698.324 502.248 39 Output Total 865 475 215 Balance 833.324 27.248 -176 Weight 80.8 kg 74.9 kg Intake: IV 1157 489 39 ACETAMINOPHEN IV (For NPO 100 ) 1,000 mg In Empty Bag 1 bag @ 400 mls/hr IVPB Q6HR [facility] Rx#:[id number] NS for cardiac output 110 60 NS for pressure lines 117 99 9 Potassium Chloride 20 meq 200 In Water For Injection 1 100ml.bag @ 50 mls/hr IVPB Q2H [facility] Rx#: [id number] Sodium Chloride 0.9% 1, 240 330 30 000 ml @ 30 mls/hr IV . Q24H [facility] Rx#:[id number] Sodium Chloride 0.9% 1, 340 000 ml @ 50 mls/hr IV . Q20H [facility] Rx#:[id number] ceFAZolin 2 gm In Sodium 50 Chloride 0.9% 50 ml @ 100 mls/hr IVPB Q8HR [facility] Rx# :[id number] Intake, IV Titration 263.324 13.248 Amount Amiodarone 450 mg In 250 Dextrose 5% in Water 250 ml @ 0.5 MG/MIN 16.667 mls/hr IV .Q15H [facility] Rx#: [id number] Insulin Regular 100 unit 13.324 13.248 In Sodium Chloride 0.9% 100 ml @ Per Protocol IV .Q0M [facility] Rx#:[id number] Blood Product 278 Rc Pheresis 2 As3 Unit 278 [id number] Output: Chest Tube Drainage [address] 106 90 60 MSCT x 2 160 70 60 Gastric Drainage 150 Drainage 110 50 Left Arm 25 10 Rt leg 85 40 Urine 339 315 45 Other: Voiding Method Indwelling Catheter Indwelling Catheter ABP, PAP, CO, CI - Last Documented Arterial Blood Pressure 107/69 Pulmonary Artery Pressure 28/16 Cardiac Output 4.8 Cardiac Index 2.7 - Exam CONSTITUTIONAL: Sitting up to the bedside chair in the intensive care unit, appears comfortable, cooperative, no apparent acute distress. HEENT: Neck is supple, no JVD, no lymphadenopathy. Right IJ Cordis and Nikolski- Rae catheter in place and functioning. RESPIRATORY: Lungs sounds essentially clear throughout, diminished to his bilateral bases, right greater than left. Respirations are symmetrical and nonlabored. Currently on 15 L high flow nasal cannula with oxygen saturations 88%, on BiPAP 12/5 FiO2 100% oxygen saturations 99%. Able to achieve 1000 mL on her incentive spirometry. Strong cough. CARDIOVASCULAR: Regular rhythm and rate. S1 and S2 present, negative for S3, gallop or murmur. Sternum is stable. Palpable peripheral pulses bilaterally, trace edema to her bilateral lower extremities. No calf pain or tenderness noted. Heart hugger in place with patient demonstrating appropriate use. Knee- high BLESSING hose and sequential compression devices in place to his bilateral lower extremities. GASTROINTESTINAL: Abdomen soft, nontender, nondistended. Hypoactive bowel sounds present 4 quadrants. Tolerating diet. Denies passing flatus. No guarding or rigidity. GENITOURINARY: Campos present draining clear, yellow urine. Urine output 295 mL in the last 8 hours. INTEGUMENTARY: Skin is warm and dry with no evidence of clubbing or cyanosis. Midline sternal incision clean dry and well approximated, covered with dry intact dressing. Right lower extremity EVH sites well approximated without redness or drainage. Left arm radial artery harvest sites clean, dry and approximated. No drainage or redness is present. NEUROLOGIC: Cranial nerves II through XII intact. No focal deficits. MUSKULOSKELETAL: Able to move all extremities, strength equal bilaterally, generalized weakness. PSYCHIATRIC: Alert and oriented to person place and time, appropriate affect, intact judgment and insight. INVASIVE LINES AND TUBES: Mediastinal/left pleural chest tubes present and connected to low continuous wall suction, no air leaks present. Mediastinal t ube with 40 mL of thin serosanguineous drainage overnight, 240 mL output in the last 24 hours. Left pleural chest tube with 60 mL of thin serosanguineous drainage overnight, 220 mL output in the last 24 hours. Right internal jugular Nikolski/Cordis, right radial arterial line present. Current CO 4.8, CI 2.7, PA 28/14, SVR 1282 and CVP 11 mmHg. Left arm ЮЛИЯ drain in place with scant thin serosanguineous drainage, 10 mL output in the last 8 hours. Left lower extremity ЮЛИЯ drain in place with scant thin serosanguineous drainage with 10 mL output in the last 8 hours. - Allied health notes Allied health notes reviewed: nursing - Labs CBC & Chem 7: 03/18/24 04:13 03/18/24 04:13 Labs: Abnormal Lab Results - Last 24 Hours (Table) 03/15/24 03/17/24 03/17/24 Range/Units 06:24 08:26 08:26 WBC (3.8-10.6) k/uL RBC (3.80-5.40) m/uL Hgb (11.4-16.0) gm/dL Hct (34.0-46.0) % Plt Count (150-450) k/uL Neutrophils # (1.3-7.7) k/uL Monocytes # (0-1.0) k/uL ABG pCO2 31 L (35-45) mmHg ABG HCO3 20 L (21-25) mmol/L ABG O2 Saturation 98.6 H (94-97) % Hemoglobin 8.3 L (11.4-16.0) gm/dL Potassium (3.5-5.1) mmol/L Chloride (98-107) mmol/L Carbon Dioxide (22-30) mmol/L Glucose (74-99) mg/dL POC Glucose (mg/dL) 121 H (70-110) mg/dL AST (14-36) U/L Total Protein (6.3-8.2) g/dL Albumin (3.5-5.0) g/dL Crossmatch See Detail 03/17/24 03/17/24 03/17/24 Range/Units 09:18 10:12 10:19 WBC 11.0 H (3.8-10.6) k/uL RBC 2.84 L (3.80-5.40) m/uL Hgb 8.7 L D (11.4-16.0) gm/dL Hct 25.2 L (34.0-46.0) % Plt Count 148 L (150-450) k/uL Neutrophils # (1.3-7.7) k/uL Monocytes # (0-1.0) k/uL ABG pCO2 (35-45) mmHg ABG HCO3 (21-25) mmol/L ABG O2 Saturation (94-97) % Hemoglobin (11.4-16.0) gm/dL Potassium (3.5-5.1) mmol/L Chloride (98-107) mmol/L Carbon Dioxide (22-30) mmol/L Glucose (74-99) mg/dL POC Glucose (mg/dL) 123 H 131 H (70-110) mg/dL AST (14-36) U/L Total Protein (6.3-8.2) g/dL Albumin (3.5-5.0) g/dL Crossmatch 03/17/24 03/17/24 03/17/24 Range/Units 10:19 12:01 13:15 WBC (3.8-10.6) k/uL RBC (3.80-5.40) m/uL Hgb (11.4-16.0) gm/dL Hct (34.0-46.0) % Plt Count (150-450) k/uL Neutrophils # (1.3-7.7) k/uL Monocytes # (0-1.0) k/uL ABG pCO2 (35-45) mmHg ABG HCO3 (21-25) mmol/L ABG O2 Saturation (94-97) % Hemoglobin (11.4-16.0) gm/dL Potassium 3.3 L (3.5-5.1) mmol/L Chloride (98-107) mmol/L Carbon Dioxide (22-30) mmol/L Glucose (74-99) mg/dL POC Glucose (mg/dL) 125 H 123 H (70-110) mg/dL AST (14-36) U/L Total Protein (6.3-8.2) g/dL Albumin (3.5-5.0) g/dL Crossmatch 03/17/24 03/17/24 03/17/24 Range/Units 15:08 15:56 18:54 WBC 13.4 H (3.8-10.6) k/uL RBC 2.85 L (3.80-5.40) m/uL Hgb 8.5 L (11.4-16.0) gm/dL Hct 24.9 L (34.0-46.0) % Plt Count 147 L (150-450) k/uL Neutrophils # (1.3-7.7) k/uL Monocytes # (0-1.0) k/uL ABG pCO2 (35-45) mmHg ABG HCO3 (21-25) mmol/L ABG O2 Saturation (94-97) % Hemoglobin (11.4-16.0) gm/dL Potassium (3.5-5.1) mmol/L Chloride (98-107) mmol/L Carbon Dioxide (22-30) mmol/L Glucose (74-99) mg/dL POC Glucose (mg/dL) 124 H 116 H (70-110) mg/dL AST (14-36) U/L Total Protein (6.3-8.2) g/dL Albumin (3.5-5.0) g/dL Crossmatch 03/17/24 03/17/24 03/17/24 Range/Units 20:02 20:57 22:07 WBC (3.8-10.6) k/uL RBC (3.80-5.40) m/uL Hgb (11.4-16.0) gm/dL Hct (34.0-46.0) % Plt Count (150-450) k/uL Neutrophils # (1.3-7.7) k/uL Monocytes # (0-1.0) k/uL ABG pCO2 (35-45) mmHg ABG HCO3 (21-25) mmol/L ABG O2 Saturation (94-97) % Hemoglobin (11.4-16.0) gm/dL Potassium (3.5-5.1) mmol/L Chloride (98-107) mmol/L Carbon Dioxide (22-30) mmol/L Glucose (74-99) mg/dL POC Glucose (mg/dL) 126 H 136 H 117 H (70-110) mg/dL AST (14-36) U/L Total Protein (6.3-8.2) g/dL Albumin (3.5-5.0) g/dL Crossmatch 03/18/24 03/18/24 03/18/24 Range/Units 00:19 00:57 02:56 WBC (3.8-10.6) k/uL RBC (3.80-5.40) m/uL Hgb (11.4-16.0) gm/dL Hct (34.0-46.0) % Plt Count (150-450) k/uL Neutrophils # (1.3-7.7) k/uL Monocytes # (0-1.0) k/uL ABG pCO2 (35-45) mmHg ABG HCO3 (21-25) mmol/L ABG O2 Saturation (94-97) % Hemoglobin (11.4-16.0) gm/dL Potassium (3.5-5.1) mmol/L Chloride (98-107) mmol/L Carbon Dioxide (22-30) mmol/L Glucose (74-99) mg/dL POC Glucose (mg/dL) 122 H 116 H 114 H (70-110) mg/dL AST (14-36) U/L Total Protein (6.3-8.2) g/dL Albumin (3.5-5.0) g/dL Crossmatch 03/18/24 03/18/24 03/18/24 Range/Units 04:11 04:13 04:13 WBC 15.4 H (3.8-10.6) k/uL RBC 2.75 L (3.80-5.40) m/uL Hgb 8.6 L (11.4-16.0) gm/dL Hct 24.8 L (34.0-46.0) % Plt Count (150-450) k/uL Neutrophils # 12.8 H (1.3-7.7) k/uL Monocytes # 1.2 H (0-1.0) k/uL ABG pCO2 (35-45) mmHg ABG HCO3 (21-25) mmol/L ABG O2 Saturation (94-97) % Hemoglobin (11.4-16.0) gm/dL Potassium (3.5-5.1) mmol/L Chloride 112 H (98-107) mmol/L Carbon Dioxide 18 L (22-30) mmol/L Glucose 105 H (74-99) mg/dL POC Glucose (mg/dL) 116 H (70-110) mg/dL AST 38 H (14-36) U/L Total Protein 5.1 L (6.3-8.2) g/dL Albumin 3.4 L (3.5-5.0) g/dL Crossmatch 03/18/24 Range/Units 06:01 WBC (3.8-10.6) k/uL RBC (3.80-5.40) m/uL Hgb (11.4-16.0) gm/dL Hct (34.0-46.0) % Plt Count (150-450) k/uL Neutrophils # (1.3-7.7) k/uL Monocytes # (0-1.0) k/uL ABG pCO2 (35-45) mmHg ABG HCO3 (21-25) mmol/L ABG O2 Saturation (94-97) % Hemoglobin (11.4-16.0) gm/dL Potassium (3.5-5.1) mmol/L Chloride (98-107) mmol/L Carbon Dioxide (22-30) mmol/L Glucose (74-99) mg/dL POC Glucose (mg/dL) 113 H (70-110) mg/dL AST (14-36) U/L Total Protein (6.3-8.2) g/dL Albumin (3.5-5.0) g/dL Crossmatch - Imaging and Cardiology Chest x-ray: report reviewed, image reviewed Assessment and Plan Assessment: Coronary artery disease, non-STEMI this admission, status post four-vessel off- pump CABG New onset atrial fibrillation, brief episode, currently normal sinus rhythm, st atus post ligation of the left atrial appendage as well as modified Morgan-Maze Chest pain, secondary to above History of brain aneurysm with coiling in 2019 and stent in 2020 Hypertension Hyperlipidemia, cholesterol 181, LDL 99 Hypothyroid, TSH 14.2, T4 1.23 Asymptomatic left subclavian stenosis, followed by vascular surgery History of left nephrectomy Right renal artery stenosis 60% on CTA in 2020 Mnire's disease Previous tobacco dependence, preoperative FEV1 99% of predicted Anxiety Family history of myocardial infarction in both her mother and her father Plan: Continue to maximize medical therapy with aspirin, statin, Plavix, and beta- kimo. Increase metoprolol to tartrate to 75 mg p.o. twice daily with hold parameters. Continue amiodarone for atrial fibrillation prophylaxis. No anticoagulation at this time. Continue Norvasc for blood pressure and radial artery spasm prophylaxis. Placed on BiPAP 12/5 and FiO2 100%, obtain ABG 30 minutes after initiation of BiPAP. Encourage incentive spirometry use 10 times every hour while awake. Will monitor daily labs and chest x-rays, electrolyte replacement per protocol. Obtain stat ultrasound right chest with markings. GI/DVT prophylaxis. Increase activity as tolerated, PT/OT/cardiac rehab following. Pain control per current medication regimen, avoid Toradol due to history of left nephrectomy, continue IV fentanyl for breakthrough pain. Insulin management per internal medicine. Patient is not diabetic, preoperative hemoglobin A1c 5.4%. She should be maintained on continuous IV insulin for 48 hours for tight blood sugar control, then may transition to subcutaneous per protocol. Discontinue left arm ЮЛИЯ drain. Continue Nikolski/Cordis for now, continue to monitor hemodynamics. Remove mediastinal chest tubes today, keep left pleural chest tubes for another 24 hours, monitor and record output. Continue Campos catheter for another 24 hours, continue to monitor strict accurate intake and output. More recommendations to follow based on patient's clinical course. Time with Patient: Greater than 30
[2024-03-18 15:22] LABS: ABG Base Excess -3.9 mmol/L; ABG HCO3 20 mmol/L (21-25); ABG Oxygen Saturation 98.2 % (94-97); ABG PCO2 30 mmHg (35-45); ABG PH 7.43 (7.35-7.45); ABG PO2 96 mmHg (83-108); ABG TCO2 21 mmol/L (19-24); Allen Test Performed? Yes
--- NOTE | 2024-03-18 15:30 | P.PN ---
Subjective patient is seen for follow-up for chronic kidney disease stage II with fairly preserved GFR. Status post CABG 4 on 03/16/2024. Patient is sitting on a bedside chair. Maintained on BiPAP today. Status post IV Lasix this morning. Status post act RBCs transfusion for hemoglobin of 6.9 Restarted on oral antihypertensive medications. Objective - Vital Signs Vital signs: Vital Signs Temp 99.9 F H 03/18/24 12:00 Pulse 87 03/18/24 15:00 Resp 14 03/18/24 15:00 BP 113/46 03/18/24 15:00 Pulse Ox 97 03/18/24 15:00 FiO2 80 03/18/24 15:25 Intake & Output 03/17/24 03/18/24 03/18/24 18:59 06:59 18:59 Intake Total 1698.324 502.248 451 Output Total 865 475 950 Balance 833.324 27.248 -499 Weight 80.8 kg 74.9 kg Intake: IV 1157 489 451 ACETAMINOPHEN IV (For NPO 100 ) 1,000 mg In Empty Bag 1 bag @ 400 mls/hr IVPB Q6HR [facility] Rx#:[id number] Albumin Human 25% 50 ml 50 In Empty Bag 1 bag @ 50 mls/hr IVPB ONCE ONE Rx#: [id number] Lactated Ringers 1,000 ml 150 @ 20 mls/hr IV .Q24H [facility] Rx#:[id number] NS for cardiac output 110 60 50 NS for pressure lines 117 99 81 Potassium Chloride 20 meq 200 In Water For Injection 1 100ml.bag @ 50 mls/hr IVPB Q2H [facility] Rx#: [id number] Sodium Chloride 0.9% 1, 240 330 120 000 ml @ 30 mls/hr IV . Q24H [facility] Rx#:[id number] Sodium Chloride 0.9% 1, 340 000 ml @ 50 mls/hr IV . Q20H [facility] Rx#:[id number] ceFAZolin 2 gm In Sodium 50 Chloride 0.9% 50 ml @ 100 mls/hr IVPB Q8HR [facility] Rx# :[id number] Intake, IV Titration 263.324 13.248 Amount Amiodarone 450 mg In 250 Dextrose 5% in Water 250 ml @ 0.5 MG/MIN 16.667 mls/hr IV .Q15H [facility] Rx#: [id number] Insulin Regular 100 unit 13.324 13.248 In Sodium Chloride 0.9% 100 ml @ Per Protocol IV .Q0M [facility] Rx#:[id number] Blood Product 278 Rc Pheresis 2 As3 Unit 278 [id number] Output: Chest Tube Drainage [address] 106 90 130 MSCT x 2 160 70 60 Gastric Drainage 150 Drainage 110 50 Left Arm 25 10 Rt leg 85 40 Urine 339 315 710 Other: Voiding Method Indwelling Catheter Indwelling Catheter Indwelling Catheter ABP, PAP, CO, CI - Last Documented Arterial Blood Pressure 142/41 Pulmonary Artery Pressure 24 Cardiac Output 4.8 Cardiac Index 2.7 - Exam patient is awake, comfortable, no acute distress. Alert oriented 3. Examination of the heart S1 and S2 Examination the lungs B breath sounds are heard Chest tubes noted Abdomen is soft No significant edema in the lower extremities LAB INTERN exam grossly intact - Labs CBC & Chem 7: 03/18/24 04:13 03/18/24 04:13 Labs: Abnormal Lab Results - Last 24 Hours (Table) 03/17/24 03/17/24 03/17/24 Range/Units 15:56 18:54 20:02 WBC 13.4 H (3.8-10.6) k/uL RBC 2.85 L (3.80-5.40) m/uL Hgb 8.5 L (11.4-16.0) gm/dL Hct 24.9 L (34.0-46.0) % Plt Count 147 L (150-450) k/uL Neutrophils # (1.3-7.7) k/uL Monocytes # (0-1.0) k/uL ABG pCO2 (35-45) mmHg ABG pO2 (83-108) mmHg ABG HCO3 (21-25) mmol/L ABG O2 Saturation (94-97) % Hemoglobin (11.4-16.0) gm/dL Chloride (98-107) mmol/L Carbon Dioxide (22-30) mmol/L Glucose (74-99) mg/dL POC Glucose (mg/dL) 116 H 126 H (70-110) mg/dL AST (14-36) U/L Total Protein (6.3-8.2) g/dL Albumin (3.5-5.0) g/dL 03/17/24 03/17/24 03/18/24 Range/Units 20:57 22:07 00:19 WBC (3.8-10.6) k/uL RBC (3.80-5.40) m/uL Hgb (11.4-16.0) gm/dL Hct (34.0-46.0) % Plt Count (150-450) k/uL Neutrophils # (1.3-7.7) k/uL Monocytes # (0-1.0) k/uL ABG pCO2 (35-45) mmHg ABG pO2 (83-108) mmHg ABG HCO3 (21-25) mmol/L ABG O2 Saturation (94-97) % Hemoglobin (11.4-16.0) gm/dL Chloride (98-107) mmol/L Carbon Dioxide (22-30) mmol/L Glucose (74-99) mg/dL POC Glucose (mg/dL) 136 H 117 H 122 H (70-110) mg/dL AST (14-36) U/L Total Protein (6.3-8.2) g/dL Albumin (3.5-5.0) g/dL 03/18/24 03/18/24 03/18/24 Range/Units 00:57 02:56 04:11 WBC (3.8-10.6) k/uL RBC (3.80-5.40) m/uL Hgb (11.4-16.0) gm/dL Hct (34.0-46.0) % Plt Count (150-450) k/uL Neutrophils # (1.3-7.7) k/uL Monocytes # (0-1.0) k/uL ABG pCO2 (35-45) mmHg ABG pO2 (83-108) mmHg ABG HCO3 (21-25) mmol/L ABG O2 Saturation (94-97) % Hemoglobin (11.4-16.0) gm/dL Chloride (98-107) mmol/L Carbon Dioxide (22-30) mmol/L Glucose (74-99) mg/dL POC Glucose (mg/dL) 116 H 114 H 116 H (70-110) mg/dL AST (14-36) U/L Total Protein (6.3-8.2) g/dL Albumin (3.5-5.0) g/dL 03/18/24 03/18/2403/18/24 Range/Units 04:13 04:13 06:01 WBC 15.4 H (3.8-10.6) k/uL RBC 2.75 L (3.80-5.40) m/uL Hgb 8.6 L (11.4-16.0) gm/dL Hct 24.8 L (34.0-46.0) % Plt Count (150-450) k/uL Neutrophils # 12.8 H (1.3-7.7) k/uL Monocytes # 1.2 H (0-1.0) k/uL ABG pCO2 (35-45) mmHg ABG pO2 (83-108) mmHg ABG HCO3 (21-25) mmol/L ABG O2 Saturation (94-97) % Hemoglobin (11.4-16.0) gm/dL Chloride 112 H (98-107) mmol/L Carbon Dioxide 18 L (22-30) mmol/L Glucose 105 H (74-99) mg/dL POC Glucose (mg/dL) 113 H (70-110) mg/dL AST 38 H (14-36) U/L Total Protein 5.1 L (6.3-8.2) g/dL Albumin 3.4 L (3.5-5.0) g/dL 03/18/24 03/18/24 03/18/24 Range/Units 09:12 11:36 15:20 WBC (3.8-10.6) k/uL RBC (3.80-5.40) m/uL Hgb (11.4-16.0) gm/dL Hct (34.0-46.0) % Plt Count (150-450) k/uL Neutrophils # (1.3-7.7) k/uL Monocytes # (0-1.0) k/uL ABG pCO2 28 L 30 L (35-45) mmHg ABG pO2 68 L (83-108) mmHg ABG HCO3 18 L 20 L (21-25) mmol/L ABG O2 Saturation 98.2 H (94-97) % Hemoglobin 8.9 L 8.0 L (11.4-16.0) gm/dL Chloride (98-107) mmol/L Carbon Dioxide (22-30) mmol/L Glucose (74-99) mg/dL POC Glucose (mg/dL) 117 H (70-110) mg/dL AST (14-36) U/L Total Protein (6.3-8.2) g/dL Albumin (3.5-5.0) g/dL Assessment and Plan Assessment: 1. Chronic kidney disease stage II with solitary kidney and history of right renal artery stenosis, about 60% noted on CTA in 2019. Baseline creatinine about 0.9-0.8 mg/dL. UA has been benign. Well-controlled hypertension on 2 medications until this admission. 2. History of left nephrectomy for nonfunctioning kidney and repeated infections in 1998 3. Hypertension which had been very well controlled previously on 2 medic ations. Renal artery stenosis was not contributing to hypertension previously. This may have changed with worsening renal artery stenosis. Currently maintained on angiotensin receptor blockers along with amlodipine, metoprolol and low-dose hydralazine. Renal function is stable with use of angiotensin receptor blockers in the setting of solitary kidney. History of angioedema'/possible ALLERGY to maryjane inhibitors previously. 4. Status post coronary artery bypass surgery 4 on 03/16/2024 5. Paroxysmal A. fib Plan: Continue current oral antihypertensive medications Renal function is stable Recommend gentle diuresis
[2024-03-18] MEDS: LACTATED RINGERS 500 ML IV SCH (15:38)
--- NOTE | 2024-03-18 15:47 | XR ---
EXAMINATION TYPE: XR chest 1V portable DATE OF EXAM: 03/18/2024 3:27 PM COMPARISON: 03/18/2024 earlier exam CLINICAL INDICATION: Female, 68 years old with history of Hypoxia, TECHNIQUE: XR chest 1V portable view(s) obtained. FINDINGS: The heart size is normal. The pulmonary vasculature is normal. Small to moderate right pleural effusion is present may be diminished in size from comparison Gillespie-Rae catheter tip is in the right main pulmonary artery region. Mediastinal tubes and left chest tube are present. Left apical pneumothorax remains present IMPRESSION: 1. Small to moderate right pleural effusion may be slightly diminished from comparison. 2. Gillespie-Rae catheter stable position. 3. Mediastinal and left chest tubes stable position. 4. Small stable left apical thorax [facility], , 03/18/2024 3:45 PM
[2024-03-18 18:35] LABS: Glucose,Whole Blood 144 mg/dL (70-110)
[2024-03-18 20:04] LABS: Glucose,Whole Blood 127 mg/dL (70-110)
[2024-03-18] MEDS: METOPROLOL TARTRATE 50 MG TAB PO SCH (20:38)
--- NOTE | 2024-03-18 21:30 | P.PN ---
Subjective Progress Note Date: 03/18/24 The patient is a 68-year-old female who is currently admitted to the hospital with a non-ST elevated myocardial infarction. She was found to have multivessel coronary artery disease and underwent coronary bypass x 4 with MONZON to LAD and diagonal and left radial artery graft to posterior lateral branch of the circumflex and SVG to OM1. Patient also had modified Morgan-Maze procedure and left atrial appendage closure. In the last 24 hours the patient was extubated and weaned from vasopressors. She is currently on BiPAP. Patient examined resting comfortably in the recliner chair. GENERAL: Ill-appearing, well-nourished and in no acute distress. NECK: Supple without JVD or thyromegaly. LUNGS: Breath sounds diminished to auscultation bilaterally. Respiration equal and unlabored. No wheezes, rales or rhonchi. HEART: Regular rate and rhythm without murmurs, rubs or gallops. S1 and S2 heard. Heart hugger in place EXTREMITIES: Normal range of motion, no edema. No clubbing or cyanosis. Peripheral pulses intact and strong. ЮЛИЯ drain noted at left radial graft site TELEMETRY: Sinus rhythm LABS: WBC 15.4, hemoglobin 8.6, hematocrit 24.8, platelet 152, sodium 137, potassium 4.3, BUN 16, creatinine 0.87 IMPRESSION: NSTEMI, multivessel coronary artery disease Status post coronary bypass x 4 New onset paroxysmal atrial fibrillation, currently in sinus rhythm Uncontrolled hypertension Headache, resolved History of brain aneurysm status post coiling Hyperlipidemia Hypothyroidism Asymptomatic left subclavian artery stenosis PLAN: Aggressive pulmonary hygiene Continue supportive treatment Further recommendations to be based upon clinical course I am dictating on behalf of Dr Guanakito Ferrer's history/physical and assessment/plan. Objective - Vital Signs Vital signs: Vital Signs Temp 99.9 F H 03/18/24 16:00 Pulse 94 03/18/24 19:00 Resp 19 03/18/24 19:00 BP 113/44 03/18/24 19:00 Pulse Ox 98 03/18/24 19:00 FiO2 80 03/18/24 19:00 Intake & Output 03/18/24 03/18/24 03/19/24 06:59 18:59 06:59 Intake Total 502.248 598 39 Output Total 475 1070 20 Balance 27.248 -472 19 Weight 74.9 kg Intake: IV 489 598 39 Albumin Human 25% 50 ml 50 In Empty Bag 1 bag @ 50 mls/hr IVPB ONCE ONE Rx#: [id number] Lactated Ringers 1,000 ml 240 30 @ 20 mls/hr IV .Q24H [facility] Rx#:[id number] NS for cardiac output 60 80 NS for pressure lines 99 108 9 Sodium Chloride 0.9% 1, 330 120 000 ml @ 30 mls/hr IV . Q24H [facility] Rx#:[id number] Intake, IV Titration 13.248 Amount Insulin Regular 100 unit 13.248 In Sodium Chloride 0.9% 100 ml @ Per Protocol IV .Q0M [facility] Rx#:[id number] Output: Chest Tube Drainage [address] 90 130 MSCT x 2 70 60 Drainage 85 Left Arm 25 Rt leg 60 Urine 315 795 20 Other: Voiding Method Indwelling Catheter Indwelling Catheter # Bowel Movements 0 0 ABP, PAP, CO, CI - Last Documented Arterial Blood Pressure 114/81 Pulmonary Artery Pressure 33/22 Cardiac Output 5.2 Cardiac Index 3 - Labs CBC & Chem 7: 03/18/24 04:13 03/18/24 04:13 Labs: Abnormal Lab Results - Last 24 Hours (Table) 03/17/24 03/18/24 03/18/24 Range/Units 22:07 00:19 00:57 WBC (3.8-10.6) k/uL RBC (3.80-5.40) m/uL Hgb (11.4-16.0) gm/dL Hct (34.0-46.0) % Neutrophils # (1.3-7.7) k/uL Monocytes # (0-1.0) k/uL ABG pCO2 (35-45) mmHg ABG pO2 (83-108) mmHg ABG HCO3 (21-25) mmol/L ABG O2 Saturation (94-97) % Hemoglobin (11.4-16.0) gm/dL Chloride (98-107) mmol/L Carbon Dioxide (22-30) mmol/L Glucose (74-99) mg/dL POC Glucose (mg/dL) 117 H 122 H 116 H (70-110) mg/dL AST (14-36) U/L Total Protein (6.3-8.2) g/dL Albumin (3.5-5.0) g/dL 03/18/24 03/18/24 03/18/24 Range/Units 02:56 04:11 04:13 WBC 15.4 H (3.8-10.6) k/uL RBC 2.75 L (3.80-5.40) m/uL Hgb 8.6 L (11.4-16.0) gm/dL Hct 24.8 L (34.0-46.0) % Neutrophils # 12.8 H (1.3-7.7) k/uL Monocytes # 1.2 H (0-1.0) k/uL ABG pCO2 (35-45) mmHg ABG pO2 (83-108) mmHg ABG HCO3 (21-25) mmol/L ABG O2 Saturation (94-97) % Hemoglobin (11.4-16.0) gm/dL Chloride (98-107) mmol/L Carbon Dioxide (22-30) mmol/L Glucose (74-99) mg/dL POC Glucose (mg/dL) 114 H 116 H (70-110) mg/dL AST (14-36) U/L Total Protein (6.3-8.2) g/dL Albumin (3.5-5.0) g/dL 03/18/24 03/18/24 03/18/24 Range/Units 04:13 06:01 09:12 WBC (3.8-10.6) k/uL RBC (3.80-5.40) m/uL Hgb (11.4-16.0) gm/dL Hct (34.0-46.0) % Neutrophils # (1.3-7.7) k/uL Monocytes # (0-1.0) k/uL ABG pCO2 28 L (35-45) mmHg ABG pO2 68 L (83-108) mmHg ABG HCO3 18 L (21-25) mmol/L ABG O2 Saturation (94-97) % Hemoglobin 8.9 L (11.4-16.0) gm/dL Chloride 112 H (98-107) mmol/L Carbon Dioxide 18 L (22-30) mmol/L Glucose 105 H (74-99) mg/dL POC Glucose (mg/dL) 113 H (70-110) mg/dL AST 38 H (14-36) U/L Total Protein 5.1 L (6.3-8.2) g/dL Albumin 3.4 L (3.5-5.0) g/dL 03/18/24 03/18/24 03/18/24 Range/Units 11:36 15:20 18:33 WBC (3.8-10.6) k/uL RBC (3.80-5.40) m/uL Hgb (11.4-16.0) gm/dL Hct (34.0-46.0) % Neutrophils # (1.3-7.7) k/uL Monocytes # (0-1.0) k/uL ABG pCO2 30 L (35-45) mmHg ABG pO2 (83-108) mmHg ABG HCO3 20 L (21-25) mmol/L ABG O2 Saturation 98.2 H (94-97) % Hemoglobin 8.0 L (11.4-16.0) gm/dL Chloride (98-107) mmol/L Carbon Dioxide (22-30) mmol/L Glucose (74-99) mg/dL POC Glucose (mg/dL) 117 H 144 H (70-110) mg/dL AST (14-36) U/L Total Protein (6.3-8.2) g/dL Albumin (3.5-5.0) g/dL 03/18/24 Range/Units 20:03 WBC (3.8-10.6) k/uL RBC (3.80-5.40) m/uL Hgb (11.4-16.0) gm/dL Hct (34.0-46.0) % Neutrophils # (1.3-7.7) k/uL Monocytes # (0-1.0) k/uL ABG pCO2 (35-45) mmHg ABG pO2 (83-108) mmHg ABG HCO3 (21-25) mmol/L ABG O2 Saturation (94-97) % Hemoglobin (11.4-16.0) gm/dL Chloride (98-107) mmol/L Carbon Dioxide (22-30) mmol/L Glucose (74-99) mg/dL POC Glucose (mg/dL) 127 H (70-110) mg/dL AST (14-36) U/L Total Protein (6.3-8.2) g/dL Albumin (3.5-5.0) g/dL
[2024-03-19 05:04] LABS: Basophils % (A) 0 %; Eosinophils % (A) 0 %; HCT 22.6 % (34.0-46.0); HGB 7.8 gm/dL (11.4-16.0); Lymphocytes # (A) 1.6 k/uL (1.0-4.8); Lymphocytes % (A) 9 %; MCH 30.8 pg (25.0-35.0); MCHC 34.6 g/dL (31.0-37.0); MCV 89.1 fL (80.0-100.0); Mean Platelet Volume 8.9; Monocytes # (A) 1.2 k/uL (0-1.0); Monocytes % (A) 7 %; Neutrophils # (A) 13.9 k/uL (1.3-7.7); Neutrophils % (A) 81 %; Platelet Count 173 k/uL (150-450); RBC 2.54 m/uL (3.80-5.40); RDW 15.1 % (11.5-15.5); WBC 17.1 k/uL (3.8-10.6)
--- NOTE | 2024-03-19 05:16 | XR ---
EXAMINATION TYPE: XR chest 1V portable DATE OF EXAM: 03/19/2024 CLINICAL HISTORY: Difficulty breathing progress study. Postoperative CABG TECHNIQUE: Single AP portable upright view of the chest is obtained. COMPARISON: Chest x-ray from one day earlier FINDINGS: Overlying sternal wires and left atrial appendage clip along with mediastinal clips are re demonstrated. Stable right internal jugular [place]-Rae catheter. Persistent small to moderate-sized right and left pleural effusions. Interval removal of left basilar chest tube and mediastinal drainage catheter. Cardiac silhouette size is stable and within normal li mits. Tiny left apical pneumothorax remains present similar to prior. Mild central vascular congestio n is more prominent versus prior. Surgical clips left midabdomen are redemonstrated. Osseous structur es are intact. IMPRESSION: Interval removal of mediastinal drainage catheter and left-sided chest tube. Stable tiny left apical pneumothorax. Stable small to moderate-sized right greater than left pleural effusions an d associated bibasilar opacities. New mild central vascular congestion is now present. [facility], , 03/19/2024 5:14 AM
[2024-03-19 05:37] LABS: ALT 13 U/L (4-34); AST 34 U/L (14-36); African American GFR (CKD) 67 (>60 ml/min/1.73 sqM); Albumin 3.4 g/dL (3.5-5.0); Alkaline Phosphatase 69 U/L (38-126); Anion Gap 8 mmol/L; Blood Urea Nitrogen 28 mg/dL (7-17); Calcium 8.4 mg/dL (8.4-10.2); Carbon Dioxide 18 mmol/L (22-30); Chloride 108 mmol/L (98-107); Glucose 103 mg/dL (74-99); Non-African American GFR(CKD) 59 (>60 ml/min/1.73 sqM); Potassium 3.8 mmol/L (3.5-5.1); Sodium 134 mmol/L (137-145); Total Protein 5.3 g/dL (6.3-8.2)
[2024-03-19 06:55] LABS: Glucose,Whole Blood 112 mg/dL (70-110)
--- NOTE | 2024-03-19 07:22 | P.PN ---
Subjective Progress Note Date: 03/19/24 Principal diagnosis: Coronary artery disease, non-STEMI this admission, new onset atrial fibrillation. Past medical history significant for brain aneurysm with coiling in 2019 and stent in 2020, hypertension, hyperlipidemia, hypothyroid, asymptomatic left subclavian stenosis, left sided nephrectomy, right renal artery stenosis 60% on CTA in 2020, Mnire's disease, previous tobacco dependence, anxiety, family history of myocardial infarction in both her mother and her father POD#3 off-pump myocardial revascularization with coronary artery bypass grafting x 4 including free MONZON sequentially to diagonal and LAD, left radial artery graft to posterior lateral branch of the circumflex coronary artery, saphenous vein graft to the first obtuse marginal coronary artery. Endovascular vein harvest of the greater saphenous vein from the right lower extremity from mid calf to groin. Endovascular harvest of the left radial artery. Modified Morgan- Maze procedure with bilateral pulmonary vein ablation and ligation of the left atrial appendage with a 40 mm AtriCure clip Acute blood loss anemia and thrombocytopenia, somewhat expected given hemodilution. The patient was seen and examined in follow-up today March 19, 2024 at her bedside in the intensive care unit. She is currently laying in bed, is awake, alert, oriented x 3 and is in no acute apparent distress. Yesterday 03/18/2024 the patient was desaturating into the high 80s on 15 L of high flow nasal cannula and was subsequently placed on BiPAP 12/5, rate of 10 and FiO2 80%. She is currently on an FiO2 of 60%. Oxygen saturations on current BiPAP settings are 94%. She is achieving 1500 mL on her incentive spirometry. ABG yesterday morning showed a pH is 7.40, pCO2 28, pO2 68, HCO3 18, oxygen saturation 94.1 and base excess -6.1. She was given 1-1/2 A of sodium bicarb. A repeat arterial blood gas in the afternoon showed a pH is 7.43, pCO2 30, pO2 96, HCO3 20, oxygen saturation 98.2 and a base excess of -3.9. Bedside telemetry is showing normal sinus rhythm heart rate 84 bpm. Right IJ cordis and [place]-Rae catheter remains in place with current hemodynamic showing a cardiac output of 4.9, cardiac index 2.8, SVR 1223, PA pressures 32/17 and CVP 14 mmHg. She is currently on no inotropic or pressor support. Due to her mixed acid-base disturbance yesterday her IV fluids were switched to lactated Ringer's which is currently infusing at 20 mL/h. The patient is currently n.p.o. as she will undergo a bronchoscopy today completed by Dr. Shepard from pulmonary critical care medicine. Her Tmax temperature in the last 24 hours is 99.9 F, and her WBC count today has trended up to 17.1. Laboratory and chest x-ray results reviewed. Objective - Vital Signs Vital signs: Vital Signs Temp 99.3 F 03/19/24 04:00 Pulse 86 03/19/24 06:30 Resp 15 03/19/24 06:30 BP 145/63 03/19/24 06:30 Pulse Ox 94 L 03/19/24 06:30 FiO2 60 03/19/24 04:07 Intake & Output 03/18/24 03/18/24 03/19/24 06:59 18:59 06:59 Intake Total 502.248 598 528 Output Total 475 1070 440 Balance 27.248 -472 88 Weight 74.9 kg Intake: IV 489 598 528 Albumin Human 25% 50 ml 50 In Empty Bag 1 bag @ 50 mls/hr IVPB ONCE ONE Rx#: [id number] Lactated Ringers 1,000 ml 240 360 @ 20 mls/hr IV .Q24H [facility] Rx#:[id number] NS for cardiac output 60 80 60 NS for pressure lines 99 108 108 Sodium Chloride 0.9% 1, 330 120 000 ml @ 30 mls/hr IV . Q24H [facility] Rx#:[id number] Intake, IV Titration 13.248 Amount Insulin Regular 100 unit 13.248 In Sodium Chloride 0.9% 100 ml @ Per Protocol IV .Q0M [facility] Rx#:[id number] Output: Chest Tube Drainage [address] 90 130 MSCT x 2 70 60 Drainage 85 Left Arm 25 Rt leg 60 Urine 315 795 440 Other: Voiding Method Indwelling Catheter Indwelling Catheter Indwelling Catheter # Bowel Movements 0 0 ABP, PAP, CO, CI - Last Documented Arterial Blood Pressure 160/53 Pulmonary Artery Pressure 32/16 Cardiac Output 4.3 Cardiac Index 2.4 - Exam CONSTITUTIONAL: Sitting up in bed in the intensive care unit, appears comfortable, cooperative, no apparent acute distress. HEENT: Neck is supple, no JVD, no lymphadenopathy. Right IJ Cordis and [place]- Rae catheter in place and functioning. RESPIRATORY: Lungs sounds essentially clear throughout, diminished to his bilateral bases, right greater than left. Respirations are symmetrical and nonlabored. Currently on BiPAP with settings 12/5, rate of 10, FiO2 60% with oxygen saturations 94%. Able to achieve 1500 mL on her incentive spirometry. Strong cough. CARDIOVASCULAR: Regular rhythm and rate. S1 and S2 present, negative for S3, gallop or murmur. Sternum is stable. Palpable peripheral pulses bilaterally, trace edema to her bilateral lower extremities. No calf pain or tenderness noted. Heart hugger in place with patient demonstrating appropriate use. Knee- high BLESSING hose and sequential compression devices in place to her bilateral lower extremities. GASTROINTESTINAL: Abdomen soft, nontender, nondistended. Active bowel sounds present 4 quadrants. NPO at this time. Passing flatus. No guarding or rigidity. GENITOURINARY: Campos present draining clear, yellow urine. Urine output 335 mL in the last 8 hours. INTEGUMENTARY: Skin is warm and dry with no evidence of clubbing or cyanosis. Midline sternal incision clean dry and well approximated, covered with dry intact dressing. Right lower extremity EVH sites well approximated without redness or drainage. Left arm radial artery harvest sites clean, dry and approximated. No drainage or redness is present. NEUROLOGIC: Cranial nerves II through XII intact. No focal deficits. MUSKULOSKELETAL: Able to move all extremities, strength equal bilaterally, generalized weakness. PSYCHIATRIC: Alert and oriented to person place and time, appropriate affect, intact judgment and insight. INVASIVE LINES AND TUBES: Right internal jugular [place]/Cordis, right radial arterial line present. Current CO 4.9, CI 2.8, PA 32/17, SVR 1223 and CVP 14 mmHg. - Allied health notes Allied health notes reviewed: nursing - Labs CBC & Chem 7: 03/19/24 04:54 03/19/24 04:54 Labs: Abnormal Lab Results - Last 24 Hours (Table) 03/18/24 03/18/24 03/18/24 Range/Units 09:12 11:36 15:20 WBC (3.8-10.6) k/uL RBC (3.80-5.40) m/uL Hgb (11.4-16.0) gm/dL Hct (34.0-46.0) % Neutrophils # (1.3-7.7) k/uL Monocytes # (0-1.0) k/uL ABG pCO2 28 L 30 L (35-45) mmHg ABG pO2 68 L (83-108) mmHg ABG HCO3 18 L 20 L (21-25) mmol/L ABG O2 Saturation 98.2 H (94-97) % Hemoglobin 8.9 L 8.0 L (11.4-16.0) gm/dL Sodium (137-145) mmol/L Chloride (98-107) mmol/L Carbon Dioxide (22-30) mmol/L BUN (7-17) mg/dL Glucose (74-99) mg/dL POC Glucose (mg/dL) 117 H (70-110) mg/dL Total Protein (6.3-8.2) g/dL Albumin (3.5-5.0) g/dL 03/18/24 03/18/24 03/19/24 Range/Units 18:33 20:03 04:54 WBC 17.1 H (3.8-10.6) k/uL RBC 2.54 L (3.80-5.40) m/uL Hgb 7.8 L (11.4-16.0) gm/dL Hct 22.6 L (34.0-46.0) % Neutrophils # 13.9 H (1.3-7.7) k/uL Monocytes # 1.2 H (0-1.0) k/uL ABG pCO2 (35-45) mmHg ABG pO2 (83-108) mmHg ABG HCO3 (21-25) mmol/L ABG O2 Saturation (94-97) % Hemoglobin (11.4-16.0) gm/dL Sodium (137-145) mmol/L Chloride (98-107) mmol/L Carbon Dioxide (22-30) mmol/L BUN (7-17) mg/dL Glucose (74-99) mg/dL POC Glucose (mg/dL) 144 H 127 H (70-110) mg/dL Total Protein (6.3-8.2) g/dL Albumin (3.5-5.0) g/dL 03/19/24 Range/Units 04:54 WBC (3.8-10.6) k/uL RBC (3.80-5.40) m/uL Hgb (11.4-16.0) gm/dL Hct (34.0-46.0) % Neutrophils # (1.3-7.7) k/uL Monocytes # (0-1.0) k/uL ABG pCO2 (35-45) mmHg ABG pO2 (83-108) mmHg ABG HCO3 (21-25) mmol/L ABG O2 Saturation (94-97) % Hemoglobin (11.4-16.0) gm/dL Sodium 134 L (137-145) mmol/L Chloride 108 H (98-107) mmol/L Carbon Dioxide 18 L (22-30) mmol/L BUN 28 H (7-17) mg/dL Glucose 103 H (74-99) mg/dL POC Glucose (mg/dL) (70-110) mg/dL Total Protein 5.3 L (6.3-8.2) g/dL Albumin 3.4 L (3.5-5.0) g/dL - Imaging and Cardiology Chest x-ray: report reviewed, image reviewed Assessment and Plan Assessment: Coronary artery disease, non-STEMI this admission, status post four-vessel off- pump CABG New onset atrial fibrillation, brief episode, currently normal sinus rhythm, status post ligation of the left atrial appendage as well as modified Morgan-Maze Chest pain, secondary to above History of brain aneurysm with coiling in 2019 and stent in 2020 Hypertension Hyperlipidemia, cholesterol 181, LDL 99 Hypothyroid, TSH 14.2, T4 1.23 Asymptomatic left subclavian stenosis, followed by vascular surgery History of left nephrectomy Right renal artery stenosis 60% on CTA in 2020 Mnire's disease Previous tobacco dependence, preoperative FEV1 99% of predicted Anxiety Family history of myocardial infarction in both her mother and her father Plan: Continue to maximize medical therapy with aspirin, statin, Plavix, and beta- kimo. Metoprolol tartrate currently at 75 mg p.o. twice daily with hold parameters. Continue amiodarone for atrial fibrillation prophylaxis. No anticoagulation at this time. Continue Norvasc for blood pressure and radial artery spasm prophylaxis. BiPAP management per pulmonary/critical care medicine recommendations. Encourage incentive spirometry use 10 times every hour while awake. Will monitor daily labs and chest x-rays, electrolyte replacement per protocol. Increase activity as tolerated, PT/OT/cardiac rehab following. Pain control per current medication regimen, avoid Toradol due to history of left nephrectomy, continue IV fentanyl for breakthrough pain. Insulin management per internal medicine. Patient is not diabetic, preoperative hemoglobin A1c 5.4%. She should be maintained on continuous IV insulin for 48 hours for tight blood sugar control, then may transition to subcutaneous per protocol. We will remove her [place]/Cordis today. Daily weights, standing. Shower daily. Discontinue Campos catheter, continue to monitor strict accurate intake and output. May bladder scan every 6 hours and as needed postvoid residual, if greater than 300 mL of urine may straight cath. More recommendations to follow based on patient's clinical course. Time with Patient: Greater than 30
[2024-03-19 08:02] LABS: ABG Base Excess -4.4 mmol/L; ABG HCO3 20 mmol/L (21-25); ABG PCO2 30 mmHg (35-45); ABG PH 7.42 (7.35-7.45); ABG PO2 78 mmHg (83-108); ABG TCO2 20 mmol/L (19-24); Allen Test Performed? Yes
--- NOTE | 2024-03-19 08:28 | P.PN ---
Subjective Progress Note Date: 03/19/24 Principal diagnosis: Coronary artery disease. Patient is a 68-year-old female with past medical history significant for brain aneurysm with previous coiling and stent, hypertension, hyperlipidemia, left subclavian stenosis, previous left-sided nephrectomy, hypothyroidism, Mnire's disease, generalized anxiety disorder, and former tobacco dependence. Patient denies any pre-existing lung disease. She does have significant smoking history, smoked 1 pack/day for over 30 years. Patient's primary care provider is marixa Orta out of Dr. Carranza's office. Patient presented to the emergency department back on March 09 with chest pain. Apparently, earlier that morning she was awoken with sudden onset substernal chest pain/tightness. She initially thought this was a anxiety attack as she does have a history of anxiety. No nausea, diaphoresis, shortness of breath. 30 minutes later, the feeling did not subside's, so she did call EMS. Patient did reportedly have a transient episode of A-fib RVR in route to the hospital. Patient was admitted with a diagnosis of non-ST elevation ME. Heart catheterization performed 03/10/2024 demonstrating severe three-vessel coronary artery disease with significant disease involvment of the proximal LAD, demonstrating 60 to 70% , left circumflex artery with 70% stenosis. and 90% stenosis of a nondominant RCA. Follow-up echocardiogram preserved left ventricular ejection fraction of 55 to 60%. No significant valvular abnormalities reported. Cardiothoracic surgery was consulted, patient is scheduled for surgical revascularization tomorrow morning. We were consulted for preoperative pulmonary clearance ventilator management following the procedure. As stated above, patient has no diagnosed history of pre-existing lung disease. She does have significant smoking history over [id number]. Patient did have bedside spirometry which showed an FEV1 2.35 L or 99% of predicted. Chest CTA done on arrival did not show any evidence of pulmonary emboli. There was evidence of mild emphysematous changes. Biapical scarring. Few borderline mildly enlarged lymph nodes in the hilum measuring 1.2 cm. Otherwise no acute findings. Most recent CBC done yesterday with a WBC count 8.4, hemoglobin 14.1, hematocrit 43.2, platelets 251. aPTT currently therapeutic at 67.7. BMP from yesterday: Sodium 140, potassium 4.3, chloride 110, serum bicarb 21, BUN 22, creatinine 0.93, glucose 93. Patient is currently walking the halls on room air. She has no respiratory distress. No current chest pain. Does have normal saline infusing at 50 mL/h. Also, heparin is infusion per protocol. Surgery is scheduled for tomorrow morning. Progress note dated March 16, 2024. 68-year-old female seen in consultation yesterday. Please see the note above. The patient had a off-pump four-vessel bypass surgery done today by Dr. Conklin. Please refer to the operative note. The patient is currently on the ventilator. Ventilator settings include volume assist-control, rate 16, tidal volume 400, FiO2 50%, and PEEP of 5. Blood gases on same settings, with FiO2 of 100%, showed a pO2 of 300, pCO2 of 33, and a pH of 7.399. The patient is on nitroglycerin at 5 mcg/min, propofol at 40 mcg/kg/min, 0.9 at 50 cc an hour, and amiodarone per protocol. In addition, the patient be started on an insulin drip at 1.5 units an hour. The patient's cardiac output is 3.3, and the index is 1.9. Pulmonary artery pressures 27/13. Current labs include a white count 7.9, hemoglobin 8.2, hematocrit 23.7, and a platelet count of 111,000. Sodium 141, potassium 4, chlorides 117, CO2 20, BUN 16, creatinine 0.71. Glucose is 151. Chest x-ray reveals an endotracheal tube, which is 5 cm above the tracheal jaki. There is a left-sided chest tube present. There is a mediastinal tube in the midline. Nasogastric tube was also noted, as well as a [place]-Rae catheter. There are some bibasilar atelectasis, and a small right apical pneumothorax. Progress note dated March 17, 2024. 68-year-old female seen today in room 264. She is postop day #1, status post off-pump four-vessel bypass surgery. She is on volume assist-control, rate 14, tidal volume 400, FiO2 40%, PEEP of 5. Blood gases show pO2 of 138, pCO2 of 30, pH is 7.38. Repeat blood gases show pO2 of 98, pCO2 31, pH is 7.41. She is on pressure support of 5 and CPAP of 5. The patient can be extubated. Rapid shallow breathing index is 38. The patient is getting saline at 50 cc an hour, insulin at 2 units an hour, and amiodarone 0.5 mg/min. White count is 11, hemog lobin 8.7, hematocrit 25.2, platelet count normal. Sodium 139, potassium 3.3, chlorides 115, CO2 16, BUN 13, creatinine 0.75. Calcium is 7.9. Albumin is 3.4. Chest x-ray shows some postsurgical changes. Previous right apical pneumothorax is not seen. Progress note dated March 18, 2024. 68-year-old female seen today in room 264. She is postoperative day #2, status post off-pump four-vessel bypass grafting. The patient saturations were a bit low. We placed her on BiPAP, with settings of 12/6, and 60%. Patient is getting saline at 20 cc an hour. The patient blood gases showed a pO2 of 68, pCO2 of 28, and a pH of 7.40. This blood gas was consistent with a mixed acid- base disturbance, including a respiratory alkalosis, and metabolic acidosis. She has a nonanion gap hyperchloremic metabolic acidosis. The patient is getting saline at 20 cc an hour. An ultrasound of the right chest, reveals only small amounts of fluid. The patient received Lasix 20 mg IV push. Current labo ratory data includes a white count 15.4, hemoglobin 8.6, hematocrit 24.8, and a platelet count of 152,000. Sodium 137, potassium 4.3, chlorides 112, CO2 18, BUN 16, creatinine 0.87. Glucose 117. Albumin 3.4. X-ray shows a right lower lobe infiltrate/effusion. Small left apical pneumothorax is seen. Progress note dated March 19, 2024. 68-year-old female seen today in room 264. The patient is postoperative day #3, status post off-pump four-vessel bypass surgery. Chest x-rays from yesterday, and this morning, reveal a partial right lower lobe collapse. The patient will undergo bronchoscopy today. The patient is on lactated Ringer's at 30 cc an hour. The patient continues on BiPAP, with settings of 12/5, and 60%. White count of 17.1, hemoglobin 7.8, hematocrit 22.6, and platelet count of 173,000. Blood gases today show pO2 of 78, pCO2 of 30, pH is 7.42. These blood gases are consistent with a mixed acid-base disturbance, including a respiratory alkalosis, and mild metabolic acidosis. Sodium 134, potassium 3.8, chlorides 108, CO2 18, anion gap 8, BUN 28, creatinine 0.99. Glucose 112. Albumin 3.4. Chest x-ray reveals either collapse, or infiltrate, in the right lower lobe, and a very small left apical pneumothorax. Objective - Vital Signs Vital signs: Vital Signs Temp 99.3 F 03/19/24 04:00 Pulse 87 03/19/24 08:05 Resp 17 03/19/24 07:00 BP 134/56 03/19/24 07:00 Pulse Ox 94 L 03/19/24 07:00 FiO2 60 03/19/24 07:53 Intake & Output 03/18/24 03/19/24 03/19/24 18:59 06:59 18:59 Intake Total 598 528 59 Output Total 1070 440 50 Balance -472 88 9 Intake: IV 598 528 59 Albumin Human 25% 50 ml 50 In Empty Bag 1 bag @ 50 mls/hr IVPB ONCE ONE Rx#: [id number] Lactated Ringers 1,000 ml 240 360 30 @ 20 mls/hr IV .Q24H [facility] Rx#:[id number] NS for cardiac output 80 60 20 NS for pressure lines 108 108 9 Sodium Chloride 0.9% 1, 120 000 ml @ 30 mls/hr IV . Q24H [facility] Rx#:[id number] Output: Chest Tube Drainage [address] 130 MSCT x 2 60 Drainage 85 Left Arm 25 Rt leg 60 Urine 795 440 50 Other: Voiding Method Indwelling Catheter Indwelling Catheter # Bowel Movements 0 0 ABP, PAP, CO, CI - Last Documented Arterial Blood Pressure 145/47 Pulmonary Artery Pressure 33/17 Cardiac Output 4.9 Cardiac Index 2.8 - Exam No acute distress, currently on BiPAP. HEENT examination is grossly unremarkable. Neck supple. Full range of motion. No adenopathy thyromegaly or neck vein distention. Cardiovascular examination reveals regular rhythm rate. S1-S2 normal. No S3 or S4. No discernible murmur noted. Lungs reveal clear breath sounds. Breath sounds are equal bilaterally. No adventitious lung sounds including wheezes rhonchi or crackles. Abdomen soft bowel sounds. No masses. Extremities are intact. No cyanosis clubbing or edema. Skin is without rash or lesion. Neurologic examination is within normal range. No focal deficits. - Labs CBC & Chem 7: 03/19/24 04:54 03/19/24 04:54 Labs: Abnormal Lab Results - Last 24 Hours (Table) 03/18/24 03/18/24 03/18/24 Range/Units 09:12 11:36 15:20 WBC (3.8-10.6) k/uL RBC (3.80-5.40) m/uL Hgb (11.4-16.0) gm/dL Hct (34.0-46.0) % Neutrophils # (1.3-7.7) k/uL Monocytes # (0-1.0) k/uL ABG pCO2 28 L 30 L (35-45) mmHg ABG pO2 68 L (83-108) mmHg ABG HCO3 18 L 20 L (21-25) mmol/L ABG O2 Saturation 98.2 H (94-97) % Hemoglobin 8.9 L 8.0 L (11.4-16.0) gm/dL Sodium (137-145) mmol/L Chloride (98-107) mmol/L Carbon Dioxide (22-30) mmol/L BUN (7-17) mg/dL Glucose (74-99) mg/dL POC Glucose (mg/dL) 117 H (70-110) mg/dL Total Protein (6.3-8.2) g/dL Albumin (3.5-5.0) g/dL 03/18/24 03/18/24 03/19/24 Range/Units 18:33 20:03 04:54 WBC 17.1 H (3.8-10.6) k/uL RBC 2.54 L (3.80-5.40) m/uL Hgb 7.8 L (11.4-16.0) gm/dL Hct 22.6 L (34.0-46.0) % Neutrophils # 13.9 H (1.3-7.7) k/uL Monocytes # 1.2 H (0-1.0) k/uL ABG pCO2 (35-45) mmHg ABG pO2 (83-108) mmHg ABG HCO3 (21-25) mmol/L ABG O2 Saturation (94-97) % Hemoglobin (11.4-16.0) gm/dL Sodium (137-145) mmol/L Chloride (98-107) mmol/L Carbon Dioxide (22-30) mmol/L BUN (7-17) mg/dL Glucose (74-99) mg/dL POC Glucose (mg/dL) 144 H 127 H (70-110) mg/dL Total Protein (6.3-8.2) g/dL Albumin (3.5-5.0) g/dL 03/19/24 03/19/24 03/19/24 Range/Units 04:54 06:53 07:59 WBC (3.8-10.6) k/uL RBC (3.80-5.40) m/uL Hgb (11.4-16.0) gm/dL Hct (34.0-46.0) % Neutrophils # (1.3-7.7) k/uL Monocytes # (0-1.0) k/uL ABG pCO2 30 L (35-45) mmHg ABG pO2 78 L (83-108) mmHg ABG HCO3 20 L (21-25) mmol/L ABG O2 Saturation (94-97) % Hemoglobin 7.9 L (11.4-16.0) gm/dL Sodium 134 L (137-145) mmol/L Chloride 108 H (98-107) mmol/L Carbon Dioxide 18 L (22-30) mmol/L BUN 28 H (7-17) mg/dL Glucose 103 H (74-99) mg/dL POC Glucose (mg/dL) 112 H (70-110) mg/dL Total Protein 5.3 L (6.3-8.2) g/dL Albumin 3.4 L (3.5-5.0) g/dL Assessment and Plan Assessment: Postop day #3, status post off-pump four-vessel bypass surgery. Routine postoperative ventilator management. Possible collapse/infiltrate, right lower lobe, with small right-sided pleural effusion. Acute non-ST segment elevation myocardial infarction. Multivessel coronary artery disease. Transient episode of atrial fibrillation. History of hypertension. History of hyperlipidemia. History of left subclavian stenosis. History of brain aneurysm, status post coiling 2018, and stenting, 2019. History of of left-sided nephrectomy. History of Mnire's disease. Hypothyroidism. Generalized anxiety disorder. Former tobacco dependence. Plan: Plan dated March 16, 2024. The patient is seen today in room 264. The patient just arrived back from the operating room the patient continues on the mechanical ventilator. Initial settings include volume assist-control, rate 16, tidal volume 400, FiO2 100%, and PEEP of 5. Blood gases showed a pO2 of 300, pCO2 of 33, and a pH of 7.399. The FiO2 was reduced down to 50%. The patient is on nitroglycerin at 5 mcg/min, propofol at 40 mcg/kg/min, saline at 50 cc an hour, and an insulin drip at 1.5 units an hour. The patient is also receiving amiodarone via protocol. The patient's cardiac output was 3.3 with an index of 1.9. Labs, x-rays, and all medications are reviewed. We will continue to follow. We will work towards an early extubation if possible. Plan dated March 17, 2024. The patient appears to be doing relatively well. Currently, she is on pressure support of 5 and CPAP of 5. She is weaning nicely. Rapid shallow breathing index is low. Labs are reviewed. Her blood gases show pO2 of 138, pCO2 30, pH is 7.38. The patient is on amiodarone 0.5 mg/min, and insulin drip at 2 units an hour. We will continue to follow make recommendations along the way. We anticipate the patient being extubated this morning. Will check a cuff leak, and evaluate her secretions, and her mental status. We will continue to follow make recommendations along the way. Prognosis is thought to be generally good. Plan dated March 18, 2024. The patient is seen today in room 264. Her saturations were a bit low so she was placed on BiPAP. BiPAP settings are 12/6, and 60%. The patient did receive Lasix 20 mg IV push. Ultrasound of the right chest revealed only a small pleural effusion. The patient's blood gases show pO2 of 68, pCO2 28, and a pH of 7.40. This blood gases consistent with a mixed acid-base disturbance. The patient will receive 1-1/2 A of sodium bicarbonate IV push. We will continue to follow. Labs, x-rays, and all medications are reviewed. Prognosis is guarded. Plan dated March 19, 2024. With the help of anesthesia, the patient will undergo bronchoscopy, airway examination, therapeutic lavage, and BAL of the right lower lobe. The specimens were sent to the laboratory for analysis. The patient's chest x-ray reveals a persistent infiltrate or collapse, to the right lower lobe, and ultrasound revealed a very small right-sided pleural effusion. Labs, x-rays, and all medications are reviewed. We will continue to follow the patient, make recommendations along the way. The patient remains on BiPAP, with settings of 12/5, and 60%. Time with Patient: Greater than 30
[2024-03-19] MEDS ORDERED: PROPOFOL 10 MG/ML 20 ML VIAL IV ONE (09:00)
[2024-03-19] MEDS ORDERED: KETAMINE HCL IN 0.9 % NACL 50 MG/5 ML SYRINGE ONE (09:00)
[2024-03-19] MEDS ORDERED: MIDAZOLAM 2 MG/2 ML VIAL ONE (09:00)
[2024-03-19] MEDS: LIDOCAINE 2% INJ 20 MG/ML INTRATRACH ONE (09:05)
--- NOTE | 2024-03-19 09:57 | P.PN ---
Subjective Progress Note Date: 03/19/24 Patient seen this morning. She is still very lethargic. She nods her head to my questions. However is too lethargic to speak. Physical exam General examination -intubated and sedated Heart - + S1S2 no murmurs Lungs -diminished breath sounds bilaterally, + chest tubes with serosanguineous fluid Abdomen soft NT ND +ve BS Extremities - No edema TACKING STITCH REMOVER -unable to assess as patient sedated Psych -unable to assess as patient is sedated Assessment and plan Coronary artery disease Status post CABG Acute blood loss anemia As per your CT surgery management and cardiology management Hemoglobin this morning stable at 8.4 Continue to monitor CBC Monitor Accu-Cheks. A1c on 03/11/2024 was 5.4. [place] [address] [address]ology and CT surgery continue with aspirin 81 mg p.o. daily, atorvastatin 40 mg p.o. daily, Plavix 75 mg p.o. daily, Acute hypoxic respiratory failure likely due to volume overload Chest x-ray this morning showed bilateral consolidation and possible pleural effusion Patient had ultrasound chest that showed that the pleural effusion was not big enough for thoracentesis Defer diuretics to primary team Patient currently on BiPAP. Wean O2 as tolerated A-fib with RVR Resume anticoagulation once cleared by primary team and cardiology Continue with amiodarone 400 p.o. twice daily Continue with metoprolol 75 p.o. twice daily History of left nephrectomy Creatinine stable at 0.99 Hypothyroidism Continue with levothyroxine 88 mcg p.o. 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 status post brain calling followed by stenting Stable DVT prophylaxis: As per CT surgery patient is on subcu heparin Objective - Vital Signs Vital signs: Vital Signs Temp 99.0 F 03/19/24 08:00 Pulse 92 03/19/24 09:00 Resp 17 03/19/24 09:00 BP 159/61 03/19/24 09:00 Pulse Ox 97 03/19/24 09:00 FiO2 60 03/19/24 08:00 Intake & Output 03/18/24 03/19/24 03/19/24 18:59 06:59 18:59 Intake Total 598 528 157 Output Total 1070 440 230 Balance -472 88 -73 Intake: IV 598 528 157 Albumin Human 25% 50 ml 50 In Empty Bag 1 bag @ 50 mls/hr IVPB ONCE ONE Rx#: [id number] Lactated Ringers 1,000 ml 240 360 90 @ 20 mls/hr IV .Q24H [facility] Rx#:[id number] NS for cardiac output 80 60 40 NS for pressure lines 108 108 27 Sodium Chloride 0.9% 1, 120 000 ml @ 30 mls/hr IV . Q24H [facility] Rx#:[id number] Output: Chest Tube Drainage [address] 130 MSCT x 2 60 Drainage 85 Left Arm 25 Rt leg 60 Urine 795 440 230 Other: Voiding Method Indwelling Catheter Indwelling Catheter Indwelling Catheter # Bowel Movements 0 0 ABP, PAP, CO, CI - Last Documented Arterial Blood Pressure 178/57 Pulmonary Artery Pressure 34/18 Cardiac Output 5 Cardiac Index 2.8 - Labs CBC & Chem 7: 03/19/24 04:54 03/19/24 04:54 Labs: Abnormal Lab Results - Last 24 Hours (Table) 03/18/24 03/18/24 03/18/24 Range/Units 11:36 15:20 18:33 WBC (3.8-10.6) k/uL RBC (3.80-5.40) m/uL Hgb (11.4-16.0) gm/dL Hct (34.0-46.0) % Neutrophils # (1.3-7.7) k/uL Monocytes # (0-1.0) k/uL ABG pCO2 30 L (35-45) mmHg ABG pO2 (83-108) mmHg ABG HCO3 20 L (21-25) mmol/L ABG O2 Saturation 98.2 H (94-97) % Hemoglobin 8.0 L (11.4-16.0) gm/dL Sodium (137-145) mmol/L Chloride (98-107) mmol/L Carbon Dioxide (22-30) mmol/L BUN (7-17) mg/dL Glucose (74-99) mg/dL POC Glucose (mg/dL) 117 H 144 H (70-110) mg/dL Total Protein (6.3-8.2) g/dL Albumin (3.5-5.0) g/dL 03/18/24 03/19/24 03/19/24 Range/Units 20:03 04:54 04:54 WBC 17.1 H (3.8-10.6) k/uL RBC 2.54 L (3.80-5.40) m/uL Hgb 7.8 L (11.4-16.0) gm/dL Hct 22.6 L (34.0-46.0) % Neutrophils # 13.9 H (1.3-7.7) k/uL Monocytes # 1.2 H (0-1.0) k/uL ABG pCO2 (35-45) mmHg ABG pO2 (83-108) mmHg ABG HCO3 (21-25) mmol/L ABG O2 Saturation (94-97) % Hemoglobin (11.4-16.0) gm/dL Sodium 134 L (137-145) mmol/L Chloride 108 H (98-107) mmol/L Carbon Dioxide 18 L (22-30) mmol/L BUN 28 H (7-17) mg/dL Glucose 103 H (74-99) mg/dL POC Glucose (mg/dL) 127 H (70-110) mg/dL Total Protein 5.3 L (6.3-8.2) g/dL Albumin 3.4 L (3.5-5.0) g/dL 03/19/24 03/19/24 Range/Units 06:53 07:59 WBC (3.8-10.6) k/uL RBC (3.80-5.40) m/uL Hgb (11.4-16.0) gm/dL Hct (34.0-46.0) % Neutrophils # (1.3-7.7) k/uL Monocytes # (0-1.0) k/uL ABG pCO2 30 L (35-45) mmHg ABG pO2 78 L (83-108) mmHg ABG HCO3 20 L (21-25) mmol/L ABG O2 Saturation (94-97) % Hemoglobin 7.9 L (11.4-16.0) gm/dL Sodium (137-145) mmol/L Chloride (98-107) mmol/L Carbon Dioxide (22-30) mmol/L BUN (7-17) mg/dL Glucose (74-99) mg/dL POC Glucose (mg/dL) 112 H (70-110) mg/dL Total Protein (6.3-8.2) g/dL Albumin (3.5-5.0) g/dL
[2024-03-19] MEDS: PIPERACILLIN-TAZOBACTAM 3.375 GM in SODIUM CHLORIDE 0.9% 100 ML IVPB SCH (10:19)
--- NOTE | 2024-03-19 10:32 | XR ---
EXAMINATION TYPE: XR chest 1V portable DATE OF EXAM: 03/19/2024 10:22 AM COMPARISON: Chest radiographs from 03/19/2024. CLINICAL INDICATION: Female, 68 years old with history of post bronch; TECHNIQUE: XR chest 1V portable Frontal view of the chest. FINDINGS: Lungs/Pleura: Blunting of the right costophrenic angle. There is no evidence of left pleural effusion , focal consolidation, or pneumothorax. Pulmonary vascularity: Unremarkable. Heart/mediastinum: Cardiomediastinal silhouette is unremarkable. Atherosclerotic calcifications are seen in the aorta. Left atrial appendage occlusion device is present. Musculoskeletal: No acute osseous pathology. Other findings: None Lines/Tubes: There is a [place]-Rae catheter with tip projecting over the spine. IMPRESSION: Postprocedural changes with small right pleural effusion. [facility], , 03/19/2024 10:30 AM
[2024-03-19 11:29] LABS: Glucose,Whole Blood 115 mg/dL (70-110)
--- NOTE | 2024-03-19 12:05 | P.PN ---
Subjective patient is seen for follow-up for chronic kidney disease stage II with fairly preserved GFR. Status post CABG 4 on 03/16/2024. Patient is sitting on a bedside chair. off of BiPAP for about 2 hours today. Objective - Vital Signs Vital signs: Vital Signs Temp 99.0 F 03/19/24 08:00 Pulse 92 03/19/24 11:33 Resp 15 03/19/24 11:00 BP 142/58 03/19/24 11:00 Pulse Ox 91 L 03/19/24 11:20 FiO2 60 03/19/24 08:00 Intake & Output 03/18/24 03/19/24 03/19/24 18:59 06:59 18:59 Intake Total 598 528 225 Output Total 1070 440 340 Balance -472 88 -115 Intake: IV 598 528 225 Albumin Human 25% 50 ml 50 In Empty Bag 1 bag @ 50 mls/hr IVPB ONCE ONE Rx#: [id number] Lactated Ringers 1,000 ml 240 360 140 @ 20 mls/hr IV .Q24H [facility] Rx#:[id number] NS for cardiac output 80 60 40 NS for pressure lines 108 108 45 Sodium Chloride 0.9% 1, 120 000 ml @ 30 mls/hr IV . Q24H [facility] Rx#:[id number] Output: Chest Tube Drainage [address] 130 MSCT x 2 60 Drainage 85 Left Arm 25 Rt leg 60 Urine 795 440 340 Other: Voiding Method Indwelling Catheter Indwelling Catheter Indwelling Catheter # Bowel Movements 0 0 ABP, PAP, CO, CI - Last Documented Arterial Blood Pressure 146/94 Pulmonary Artery Pressure 32/19 Cardiac Output 5 Cardiac Index 2.8 - Exam patient is awake, comfortable, no acute distress. Alert oriented 3. Examination of the heart S1 and S2 Examination the lungs B breath sounds are heard Abdomen is soft 1+ edema PL[employer] W[employer] CHIEF exam grossly intact - Labs CBC & Chem 7: 03/19/24 04:54 03/19/24 04:54 Labs: Abnormal Lab Results - Last 24 Hours (Table) 03/18/24 03/18/24 03/18/24 Range/Units 15:20 18:33 20:03 WBC (3.8-10.6) k/uL RBC (3.80-5.40) m/uL Hgb (11.4-16.0) gm/dL Hct (34.0-46.0) % Neutrophils # (1.3-7.7) k/uL Monocytes # (0-1.0) k/uL ABG pCO2 30 L (35-45) mmHg ABG pO2 (83-108) mmHg ABG HCO3 20 L (21-25) mmol/L ABG O2 Saturation 98.2 H (94-97) % Hemoglobin 8.0 L (11.4-16.0) gm/dL Sodium (137-145) mmol/L Chloride (98-107) mmol/L Carbon Dioxide (22-30) mmol/L BUN (7-17) mg/dL Glucose (74-99) mg/dL POC Glucose (mg/dL) 144 H 127 H (70-110) mg/dL Total Protein (6.3-8.2) g/dL Albumin (3.5-5.0) g/dL 03/19/24 03/19/24 03/19/24 Range/Units 04:54 04:54 06:53 WBC 17.1 H (3.8-10.6) k/uL RBC 2.54 L (3.80-5.40) m/uL Hgb 7.8 L (11.4-16.0) gm/dL Hct 22.6 L (34.0-46.0) % Neutrophils # 13.9 H (1.3-7.7) k/uL Monocytes # 1.2 H (0-1.0) k/uL ABG pCO2 (35-45) mmHg ABG pO2 (83-108) mmHg ABG HCO3 (21-25) mmol/L ABG O2 Saturation (94-97) % Hemoglobin (11.4-16.0) gm/dL Sodium 134 L (137-145) mmol/L Chloride 108 H (98-107) mmol/L Carbon Dioxide 18 L (22-30) mmol/L BUN 28 H (7-17) mg/dL Glucose 103 H (74-99) mg/dL POC Glucose (mg/dL) 112 H (70-110) mg/dL Total Protein 5.3 L (6.3-8.2) g/dL Albumin 3.4 L (3.5-5.0) g/dL 03/19/24 03/19/24 Range/Units 07:59 11:27 WBC (3.8-10.6) k/uL RBC (3.80-5.40) m/uL Hgb (11.4-16.0) gm/dL Hct (34.0-46.0) % Neutrophils # (1.3-7.7) k/uL Monocytes # (0-1.0) k/uL ABG pCO2 30 L (35-45) mmHg ABG pO2 78 L (83-108) mmHg ABG HCO3 20 L (21-25) mmol/L ABG O2 Saturation (94-97) % Hemoglobin 7.9 L (11.4-16.0) gm/dL Sodium (137-145) mmol/L Chloride (98-107) mmol/L Carbon Dioxide (22-30) mmol/L BUN (7-17) mg/dL Glucose (74-99) mg/dL POC Glucose (mg/dL) 115 H (70-110) mg/dL Total Protein (6.3-8.2) g/dL Albumin (3.5-5.0) g/dL Assessment and Plan Assessment: 1. Chronic kidney disease stage II with solitary kidney and history of right renal artery stenosis, about 60% noted on CTA in 2019. Baseline creatinine about 0.9-0.8 mg/dL. UA has been benign. Well-controlled hypertension on 2 medications until this admission. 2. History of left nephrectomy for nonfunctioning kidney and repeated infections in 1998 3. Hypertension which had been very well controlled previously on 2 med ications. Renal artery stenosis was not contributing to hypertension previously. This may have changed with worsening renal artery stenosis. Currently maintained on angiotensin receptor blockers along with amlodipine, metoprolol and low-dose hydralazine. Renal function is stable with use of trena otensin receptor blockers in the setting of solitary kidney. History of angioedema'/possible ALLERGY to maryjane inhibitors previously.Cozaar on hold postop. 4. Status post coronary artery bypass surgery 4 on 03/16/2024 5. Paroxysmal A. fib Plan: Continue current oral antihypertensive medications Renal function is stable Recommend gentle diuresis
[2024-03-19] MEDS: ACETYLCYSTEINE 800 MG/4 ML VIAL INHALATION SCH (12:21)
[2024-03-19] MEDS: FUROSEMIDE 10 MG/ML 2 ML VIAL IV STA (12:27)
--- NOTE | 2024-03-19 12:27 | P.PN ---
Subjective Progress Note Date: 03/19/24 The patient is a 68-year-old female who is currently admitted to the hospital with a non-ST elevated myocardial infarction. She was found to have multivessel coronary artery disease and underwent coronary bypass x 4 with MONZON to LAD and diagonal and left radial artery graft to posterior lateral branch of the circumflex and SVG to OM1. Patient also had modified Morgan-Maze procedure and left atrial appendage closure. Yesterday the patient required BiPAP. Chest x- ray this morning showed partial right lung collapse and therefore she underwent bronchoscopy at bedside. Follow-up chest x-ray is pending. Patient interviewed and examined lying comfortably in bed. She is on nasal cannula currently. She shakes her head no to any discomfort currently. GENERAL: Ill-appearing, well-nourished and in no acute distress. NECK: Supple without JVD or thyromegaly. LUNGS: Breath sounds diminished to auscultation bilaterally. Respiration equal and unlabored. Fine crackles in the base. HEART: Regular rate and rhythm without murmurs, rubs or gallops. S1 and S2 heard. Heart hugger in place EXTREMITIES: Normal range of motion, no edema. No clubbing or cyanosis. Peripheral pulses intact and strong. ЮЛИЯ drain noted at left radial graft site TELEMETRY: Sinus rhythm LABS: WBC 17.1, hemoglobin 7.8, hematocrit 22.6, platelet 173, sodium 134, potassium 3.8, BUN 28, creatinine 0.99, AST 34, ALT 13, ALP 69 IMPRESSION: NSTEMI, multivessel coronary artery disease Status post coronary bypass x 4 New onset paroxysmal atrial fibrillation, currently in sinus rhythm Uncontrolled hypertension Headache, resolved History of brain aneurysm status post coiling Hyperlipidemia Hypothyroidism Asymptomatic left subclavian artery stenosis PLAN: Aggressive pulmonary hygiene Continue supportive treatment Further recommendations to be based upon clinical course I am dictating on behalf of Dr Guanakito Ferrer's history/physical and assessment/plan. Objective - Vital Signs Vital signs: Vital Signs Temp 99.0 F 03/19/24 08:00 Pulse 83 03/19/24 10:00 Resp 11 L 03/19/24 10:00 BP 137/58 03/19/24 10:00 Pulse Ox 96 03/19/24 10:00 FiO2 60 03/19/24 08:00 Intake & Output 03/18/24 03/19/24 03/19/24 18:59 06:59 18:59 Intake Total 598 528 196 Output Total 1070 440 290 Balance -472 88 -94 Intake: IV 598 528 196 Albumin Human 25% 50 ml 50 In Empty Bag 1 bag @ 50 mls/hr IVPB ONCE ONE Rx#: [id number] Lactated Ringers 1,000 ml 240 360 120 @ 20 mls/hr IV .Q24H ALISIA Rx#:[id number] NS for cardiac output 80 60 40 NS for pressure lines 108 108 36 Sodium Chloride 0.9% 1, 120 000 ml @ 30 mls/hr IV . Q24H ALISIA Rx#:[id number] Output: Chest Tube Drainage [address] 130 MSCT x 2 60 Drainage 85 Left Arm 25 Rt leg 60 Urine 795 440 290 Other: Voiding Method Indwelling Catheter Indwelling Catheter Indwelling Catheter # Bowel Movements 0 0 ABP, PAP, CO, CI - Last Documented Arterial Blood Pressure 146/94 Pulmonary Artery Pressure 32/19 Cardiac Output 5 Cardiac Index 2.8 - Labs CBC & Chem 7: 03/19/24 04:54 03/19/24 04:54 Labs: Abnormal Lab Results - Last 24 Hours (Table) 03/18/24 03/18/24 03/18/24 Range/Units 11:36 15:20 18:33 WBC (3.8-10.6) k/uL RBC (3.80-5.40) m/uL Hgb (11.4-16.0) gm/dL Hct (34.0-46.0) % Neutrophils # (1.3-7.7) k/uL Monocytes # (0-1.0) k/uL ABG pCO2 30 L (35-45) mmHg ABG pO2 (83-108) mmHg ABG HCO3 20 L (21-25) mmol/L ABG O2 Saturation 98.2 H (94-97) % Hemoglobin 8.0 L (11.4-16.0) gm/dL Sodium (137-145) mmol/L Chloride (98-107) mmol/L Carbon Dioxide (22-30) mmol/L BUN (7-17) mg/dL Glucose (74-99) mg/dL POC Glucose (mg/dL) 117 H 144 H (70-110) mg/dL Total Protein (6.3-8.2) g/dL Albumin (3.5-5.0) g/dL 03/18/24 03/19/24 03/19/24 Range/Units 20:03 04:54 04:54 WBC 17.1 H (3.8-10.6) k/uL RBC 2.54 L (3.80-5.40) m/uL Hgb 7.8 L (11.4-16.0) gm/dL Hct 22.6 L (34.0-46.0) % Neutrophils # 13.9 H (1.3-7.7) k/uL Monocytes # 1.2 H (0-1.0) k/uL ABG pCO2 (35-45) mmHg ABG pO2 (83-108) mmHg ABG HCO3 (21-25) mmol/L ABG O2 Saturation (94-97) % Hemoglobin (11.4-16.0) gm/dL Sodium 134 L (137-145) mmol/L Chloride 108 H (98-107) mmol/L Carbon Dioxide 18 L (22-30) mmol/L BUN 28 H (7-17) mg/dL Glucose 103 H (74-99) mg/dL POC Glucose (mg/dL) 127 H (70-110) mg/dL Total Protein 5.3 L (6.3-8.2) g/dL Albumin 3.4 L (3.5-5.0) g/dL 03/19/24 03/19/24 Range/Units 06:53 07:59 WBC (3.8-10.6) k/uL RBC (3.80-5.40) m/uL Hgb (11.4-16.0) gm/dL Hct (34.0-46.0) % Neutrophils # (1.3-7.7) k/uL Monocytes # (0-1.0) k/uL ABG pCO2 30 L (35-45) mmHg ABG pO2 78 L (83-108) mmHg ABG HCO3 20 L (21-25) mmol/L ABG O2 Saturation (94-97) % Hemoglobin 7.9 L (11.4-16.0) gm/dL Sodium (137-145) mmol/L Chloride (98-107) mmol/L Carbon Dioxide (22-30) mmol/L BUN (7-17) mg/dL Glucose (74-99) mg/dL POC Glucose (mg/dL) 112 H (70-110) mg/dL Total Protein (6.3-8.2) g/dL Albumin (3.5-5.0) g/dL
[2024-03-19] MEDS: ACETAMINOPHEN TAB 500 MG TAB PO PRN (16:21)
--- NOTE | 2024-03-19 17:29 | PCN ---
PROCEDURE NOTE PROCEDURES: Bronchoscopy, airway examination, therapeutic lavage, BAL, right lower lobe. PREOPERATIVE DIAGNOSIS: Right lower lobe collapse. POSTOPERATIVE DIAGNOSIS: Right lower lobe collapse. The patient's procedure was done in room #264. There was informed consent and universal timeout. ANESTHESIA PROVIDED: Monitored anesthesia care. RESIDENTIAL SERVICE TECHNICIAN: Dr. Shepard. The bronchoscope team was called into the hospital. DESCRIPTION OF PROCEDURE: After the patient was adequately sedated, the bronchoscope was inserted through the right nostril. It passed through the right nasopharynx into the oropharynx. The hypopharynx was identified. The hypopharyngeal structures including anterior commissure, true cords, false cords, arytenoids, piriform sinuses, right and left, vallecula, all appeared relatively normal. The glottic opening was topicalized. The bronchoscope was pushed through the glottic opening into the trachea. Trachea appeared normal. There were thick secretions noted in the trachea. They were suctioned. The right and left mainstem were topicalized. The tracheal jaki was sharp. Right upper lobe and its 3 segments, right middle lobe and its 3 segments, right lower lobe and its 5 segments, the left upper lobe proper and its 2 segments, the lingula and its 2 segments and left lower lobe and its 4 segments all had similar findings of airway erythema and hyperemia. The mucosa was friable. It bled easily. There was no dominant mass or tumor. There were some blood clots noted in both lower lobes. Most of the secretions were purulent looking. They were mostly in the right lung, particularly in the right lower lobe. They were suctioned without difficulty. We used saline to suction the clots. Next, the bronchoscope was wedged into the right lower lobe. We did a formal BAL, and 30 mL of turbid fluid was recovered. The fluid will be sent for analysis. There was no immediate complication. The patient was stable throughout the procedure, and Anesthesia was in the room the entire time. The bronchoscope was withdrawn, and the patient will be recovered. A repeat chest x-ray will be done in an hour and a half. The fluid was sent for analysis. There was no immediate complication. MMODL / IJN: [id number] /
[2024-03-19 17:45] LABS: Glucose,Whole Blood 135 mg/dL (70-110)
[2024-03-19 19:34] LABS: Glucose,Whole Blood 139 mg/dL (70-110)
[2024-03-19] MEDS: guaiFENesin 600 MG TABLET.ER PO SCH (20:15)
[2024-03-20 02:21] LABS: ALT 15 U/L (4-34); AST 29 U/L (14-36); African American GFR (CKD) 74 (>60 ml/min/1.73 sqM); Alkaline Phosphatase 71 U/L (38-126); Anion Gap 3 mmol/L; Blood Urea Nitrogen 25 mg/dL (7-17); Calcium 7.8 mg/dL (8.4-10.2); Carbon Dioxide 22 mmol/L (22-30); Chloride 109 mmol/L (98-107); Glucose 119 mg/dL (74-99); Non-African American GFR(CKD) 64 (>60 ml/min/1.73 sqM); Potassium 3.2 mmol/L (3.5-5.1); Sodium 134 mmol/L (137-145); Total Protein 4.9 g/dL (6.3-8.2)
[2024-03-20 02:28] LABS: Basophils % (A) 0 %; Eosinophils % (A) 0 %; HCT 22.6 % (34.0-46.0); HGB 7.6 gm/dL (11.4-16.0); Lymphocytes # (A) 1.3 k/uL (1.0-4.8); Lymphocytes % (A) 9 %; MCH 30.1 pg (25.0-35.0); MCHC 33.6 g/dL (31.0-37.0); MCV 89.5 fL (80.0-100.0); Mean Platelet Volume 8.1; Monocytes # (A) 0.8 k/uL (0-1.0); Monocytes % (A) 5 %; Neutrophils # (A) 12.5 k/uL (1.3-7.7); Neutrophils % (A) 85 %; Platelet Count 197 k/uL (150-450); RBC 2.53 m/uL (3.80-5.40); RDW 14.5 % (11.5-15.5); WBC 14.7 k/uL (3.8-10.6)
[2024-03-20] MEDS: POTASSIUM CHLORIDE ER 20 MEQ TAB.ER PO SCH (03:06)
--- NOTE | 2024-03-20 05:22 | XR ---
EXAMINATION TYPE: XR chest 1V portable DATE OF EXAM: 03/20/2024 CLINICAL HISTORY: Difficulty breathing progress study. Postoperative CABG. TECHNIQUE: Single AP portable semiupright view of the chest is obtained. COMPARISON: Chest x-ray from one day earlier FINDINGS: Overlying sternal wires and left atrial appendage clip along with mediastinal clips are re demonstrated. Interval removal of right internal jugular [place]-Rae catheter with Cordis sheath now pr esent. Persistent small to moderate-sized right greater than left pleural effusions. Cardiac silhouette size is stable and upper limits of normal. No obvious left apical pneumothorax. More prominent mild to mo derate central vascular congestion. Osseous structures are intact. IMPRESSION: Persistent small to moderate-size right greater than left pleural effusions and associate d bibasilar opacities. More prominent mild to moderate central vascular congestion is now present. [facility], , 03/20/2024 5:20 AM
[2024-03-20 06:46] LABS: Glucose,Whole Blood 134 mg/dL (70-110)
[2024-03-20] MEDS: POTASSIUM BICARBONATE/CIT AC 20 MEQ TABLET.EFF PO SCH (08:30)
--- NOTE | 2024-03-20 08:36 | P.PN ---
Subjective Progress Note Date: 03/20/24 Principal diagnosis: Coronary artery disease, non-STEMI this admission, new onset atrial fibrillation. Past medical history significant for brain aneurysm with coiling in 2019 and stent in 2020, hypertension, hyperlipidemia, hypothyroid, asymptomatic left subclavian stenosis, left sided nephrectomy, right renal artery stenosis 60% on CTA in 2020, Mnire's disease, previous tobacco dependence, anxiety, family history of myocardial infarction in both her mother and her father POD#4 off-pump myocardial revascularization with coronary artery bypass grafting x 4 including free MONZON sequentially to diagonal and LAD, left radial artery graft to posterior lateral branch of the circumflex coronary artery, saphenous vein graft to the first obtuse marginal coronary artery. Endovascular vein harvest of the greater saphenous vein from the right lower extremity from mid calf to groin. Endovascular harvest of the left radial artery. Modified Morgan- Maze procedure with bilateral pulmonary vein ablation and ligation of the left atrial appendage with a 40 mm AtriCure clip Acute blood loss anemia and thrombocytopenia, somewhat expected given hemodilution. Right lower lobe collapse, status post day #1 bronchoscopy, airway examination, therapeutic lavage, BAL right lower lobe performed by Dr. Shepard. The patient was seen and examined in follow-up today March 20, 2024 at her bedside in the intensive care unit. She is currently sitting up to the bedside chair, is awake, alert, oriented x 3 and is in no acute apparent distress. Denies any complaints of shortness of breath or pain at this time, although is complaining of some generalized weakness. She states she feels much better today from yesterday after the bronchoscopy regarding her breathing. Oxygen saturations are 95% on 4 L nasal cannula and she is achieving 2000 mL on her incentive spirometry with encouragement. Bedside telemetry is showing normal sinus rhythm heart rate 93 bpm. She remains hemodynamically stable and is currently on no inotropic or pressor support. Right IJ cordis remains in place with current hemodynamics showing a CVP of 14 mmHg. The patient was given Lasix 20 mg IV x 1 yesterday by nephrology, urine output in the last 8 hours is 610 mL. The patient underwent a bronchoscopy, airway examination, therapeutic lavage, BAL to her right lower lobe yesterday performed by Dr. Shepard, secondary to right lower lobe collapse. She was started on Zosyn for antibiotic coverage and her WBC count today is trending down and is 14.7. She has been afebrile in the last 24 hours, Tmax temperature is 99.2 F. Culture results from the bronchoscopy remain pending. The patient has been up ambulating in the intensive care unit hallway with standby assistance from nursing and therapy s [facility] and tolerating well, with complaints of generalized weakness. Laboratory and chest x-ray results reviewed. Objective - Vital Signs Vital signs: Vital Signs Temp 99.2 F 03/20/24 00:00 Pulse 84 03/20/24 05:00 Resp 24 03/20/24 05:00 BP 138/62 03/20/24 05:00 Pulse Ox 95 03/20/24 05:00 FiO2 60 03/19/24 14:30 Intake & Output 03/19/24 03/20/24 03/20/24 18:59 06:59 18:59 Intake Total 433 387 Output Total 1760 910 Balance -1327 -523 Weight 75.2 kg Intake: IV 433 387 Lactated Ringers 1,000 ml 300 200 @ 20 mls/hr IV .Q24H ALISIA Rx#:[id number] NS for cardiac output 40 NS for pressure lines 93 87 Piperacillin-Tazobactam 3 100 .375 gm In Sodium Chloride 0.9% 100 ml @ 25 mls/hr IVPB Q8H ALISIA Rx#: [id number] Output: Urine 1760 910 Other: Voiding Method Indwelling Catheter Indwelling Catheter ABP, PAP, CO, CI - Last Documented Arterial Blood Pressure 141/93 Pulmonary Artery Pressure 32/19 Cardiac Output 5 Cardiac Index 2.8 - Exam CONSTITUTIONAL: Appears comfortable, cooperative, no apparent acute distress. HEENT: Neck is supple, no JVD, no lymphadenopathy. Right IJ Cordis in place and functioning. RESPIRATORY: Lungs sounds essentially clear throughout, diminished to his bilateral bases, right greater than left. Respirations are symmetrical and nonlabored. Currently on 4 L nasal cannula with oxygen saturations 94%. Able to achieve 2000 mL on her incentive spirometry. Strong cough. CARDIOVASCULAR: Regular rhythm and rate. S1 and S2 present, negative for S3, gallop or murmur. Sternum is stable. Palpable peripheral pulses bilaterally, trace edema to her bilateral lower extremities. No calf pain or tenderness noted. Heart hugger in place with patient demonstrating appropriate use. Knee- high BLESSING hose and sequential compression devices in place to her bilateral lower extremities. GASTROINTESTINAL: Abdomen soft, nontender, nondistended. Active bowel sounds present 4 quadrants. Tolerating her diet. Passing flatus. No guarding or rigidity. GENITOURINARY: Continues to void. Urine output 610 mL in the last 8 hours. INTEGUMENTARY: Skin is warm and dry with no evidence of clubbing or cyanosis. Midline sternal incision clean dry and well approximated, covered with dry intact dressing. Right lower extremity EVH sites well approximated without redness or drainage. Left arm radial artery harvest sites clean, dry and approximated. No drainage or redness is present. NEUROLOGIC: Cranial nerves II through XII intact. No focal deficits. MUSKULOSKELETAL: Able to move all extremities, strength equal bilaterally, generalized weakness. PSYCHIATRIC: Alert and oriented to person place and time, appropriate affect, intact judgment and insight. INVASIVE LINES AND TUBES: Right internal jugular Cordis, right radial arterial line present. Current CVP 8 mmHg. - Allied health notes Allied health notes reviewed: nursing - Labs CBC & Chem 7: 03/20/24 01:50 03/20/24 06:47 Labs: Abnormal Lab Results - Last 24 Hours (Table) 03/19/24 03/19/24 03/19/24 Range/Units 04:54 07:59 11:27 WBC (3.8-10.6) k/uL RBC (3.80-5.40) m/uL Hgb (11.4-16.0) gm/dL Hct (34.0-46.0) % Neutrophils # (1.3-7.7) k/uL ABG pCO2 30 L (35-45) mmHg ABG pO2 78 L (83-108) mmHg ABG HCO3 20 L (21-25) mmol/L Hemoglobin 7.9 L (11.4-16.0) gm/dL Sodium (137-145) mmol/L Potassium (3.5-5.1) mmol/L Chloride (98-107) mmol/L BUN (7-17) mg/dL Glucose (74-99) mg/dL POC Glucose (mg/dL) 115 H (70-110) mg/dL Calcium (8.4-10.2) mg/dL Total Protein (6.3-8.2) g/dL Albumin (3.5-5.0) g/dL Procalcitonin 0.83 H (0.02-0.50) ng/mL 03/19/24 03/19/24 03/20/24 Range/Units 17:43 19:32 01:50 WBC 14.7 H (3.8-10.6) k/uL RBC 2.53 L (3.80-5.40) m/uL Hgb 7.6 L (11.4-16.0) gm/dL Hct 22.6 L (34.0-46.0) % Neutrophils # 12.5 H (1.3-7.7) k/uL ABG pCO2 (35-45) mmHg ABG pO2 (83-108) mmHg ABG HCO3 (21-25) mmol/L Hemoglobin (11.4-16.0) gm/dL Sodium (137-145) mmol/L Potassium (3.5-5.1) mmol/L Chloride (98-107) mmol/L BUN (7-17) mg/dL Glucose (74-99) mg/dL POC Glucose (mg/dL) 135 H 139 H (70-110) mg/dL Calcium (8.4-10.2) mg/dL Total Protein (6.3-8.2) g/dL Albumin (3.5-5.0) g/dL Procalcitonin (0.02-0.50) ng/mL 03/20/24 03/20/24 Range/Units 01:50 06:45 WBC (3.8-10.6) k/uL RBC (3.80-5.40) m/uL Hgb (11.4-16.0) gm/dL Hct (34.0-46.0) % Neutrophils # (1.3-7.7) k/uL ABG pCO2 (35-45) mmHg ABG pO2 (83-108) mmHg ABG HCO3 (21-25) mmol/L Hemoglobin (11.4-16.0) gm/dL Sodium 134 L (137-145) mmol/L Potassium 3.2 L (3.5-5.1) mmol/L Chloride 109 H (98-107) mmol/L BUN 25 H (7-17) mg/dL Glucose 119 H (74-99) mg/dL POC Glucose (mg/dL) 134 H (70-110) mg/dL Calcium 7.8 L (8.4-10.2) mg/dL Total Protein 4.9 L (6.3-8.2) g/dL Albumin 3.0 L (3.5-5.0) g/dL Procalcitonin (0.02-0.50) ng/mL - Imaging and Cardiology Chest x-ray: report reviewed, image reviewed Assessment and Plan Assessment: Coronary artery disease, non-STEMI this admission, status post four-vessel off- pump CABG New onset atrial fibrillation, brief episode, currently normal sinus rhythm, status post ligation of the left atrial appendage as well as modified Morgan-Maze Chest pain, secondary to above Right lower lobe collapse, status post bronchoscopy, airway examination, therapeutic lavage, BAL right lower lobe performed by Dr. Shepard 03/19/2024 History of brain aneurysm with coiling in 2018 and stent in 2019 Hypertension Hyperlipidemia, cholesterol 181, LDL 99 Hypothyroid, TSH 14.2, T4 1.23 Asymptomatic left subclavian stenosis, followed by vascular surgery History of left nephrectomy Right renal artery stenosis 60% on CTA in 2019 Mnire's disease Previous tobacco dependence, preoperative FEV1 99% of predicted Anxiety Family history of myocardial infarction in both her mother and her father Plan: Continue to maximize medical therapy with aspirin, statin, Plavix, and beta- kimo. Metoprolol tartrate currently at 75 mg p.o. twice daily with hold para meters. Continue amiodarone for atrial fibrillation prophylaxis. No anticoagulation at this time. Continue Norvasc for blood pressure and radial artery spasm prophylaxis. Wean oxygen as tolerated. Bronchodilator management and recommendations per pulmonary/critical care services. Encourage incentive spirometry use 10 times every hour while awake. Continue Mucinex 1200 mg p.o. every 12 hours, and Mucomyst 200 mg nebulizer 3 times daily. Will monitor daily labs and chest x-rays, electrolyte replacement per protocol. Increase activity as tolerated, out of bed for all meals. PT/OT/cardiac rehab following. Pain control per current medication regimen, avoid Toradol due to history of left nephrectomy, oxycodone and fentanyl have been discontinued. Insulin management per internal medicine. Patient is not diabetic, preoperative hemoglobin A1c 5.4%. Discontinue her right IJ Cordis today. Daily weights, standing. Shower daily. Continue to monitor strict accurate intake and output. May bladder scan every 6 hours and as needed postvoid residual, if greater than 300 mL of urine may straight cath. Continue to follow cultures from bronchoscopy, currently on Zosyn for empiric IV antibiotic management. Continue vitamin C and iron replacement, hemoglobin today 7.6. Lasix 20 mg IV x 1 now. More recommendations to follow based on patient's clinical course. Time with Patient: Greater than 30
[2024-03-20] MEDS: FUROSEMIDE 10 MG/ML 2 ML VIAL IV STA (09:51)
[2024-03-20] MEDS: POTASSIUM CHLORIDE ER 10 MEQ TAB.ER.PRT PO STA (10:01)
--- NOTE | 2024-03-20 10:39 | P.PN ---
Subjective Progress Note Date: 03/20/24 Patient seen this morning in the ICU. She was sitting in the chair. Patient states that she feels weak and tired. Physical exam General examination -no acute distress Heart - + S1S2 no murmurs Lungs -diminished breath sounds bilaterally. Abdomen soft NT ND +ve BS Extremities - No edema RECONCILIATION ACCOUNTANT -no focal deficits Psych -lethargic and somnolent Assessment and plan Coronary artery disease Status post CABG Acute blood loss anemia As per your CT surgery management and cardiology management Hemoglobin this morning stable at 7.6 Continue to monitor CBC Monitor Accu-Cheks. A1c on 03/11/2024 was 5.4. Blood glucose range is 997420 As per cardiology and CT surgery continue with aspirin 81 mg p.o. daily, atorvastatin 40 mg p.o. daily, Plavix 75 mg p.o. daily, Acute hypoxic respiratory failure likely due to volume overload Chest x-ray this morning showed bilateral consolidation and possible pleural effusion Patient had ultrasound chest that showed that the pleural effusion was not big enough for thoracentesis Defer diuretics to primary team Patient currently on 4 L nasal cannula. Wean O2 as tolerated Hypokalemia This morning potassium was 3.2. After repletion potassium improved to 3.5 A-fib with RVR Per primary team no anticoagulation at this time Continue with amiodarone 400 p.o. twice daily Continue with metoprolol 75 p.o. twice daily History of left nephrectomy Creatinine stable Hypothyroidism Continue with levothyroxine 88 mcg p.o. 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 status post brain calling followed by stenting Stable DVT prophylaxis: As per CT surgery patient is on subcu heparin Objective - Vital Signs Vital signs: Vital Signs Temp 97.4 F L 03/20/24 08:00 Pulse 86 03/20/24 10:00 Resp 23 03/20/24 10:00 BP 158/66 03/20/24 10:00 Pulse Ox 93 L 03/20/24 10:00 FiO2 60 03/19/24 14:30 Intake & Output 03/19/24 03/20/24 03/20/24 18:59 06:59 18:59 Intake Total 433 416 141 Output Total 1760 1110 0 Balance -1327 -694 141 Weight 75.2 kg Intake: IV 433 416 141 Lactated Ringers 1,000 ml 300 220 20 @ 20 mls/hr IV .Q24H ALISIA Rx#:[id number] NS for cardiac output 40 NS for pressure lines 93 96 21 Piperacillin-Tazobactam 3 100 100 .375 gm In Sodium Chloride 0.9% 100 ml @ 25 mls/hr IVPB Q8H ALISIA Rx#: [id number] Output: Urine 1760 1110 0 Other: Voiding Method Indwelling Catheter Indwelling Catheter # Voids 0 ABP, PAP, CO, CI - Last Documented Arterial Blood Pressure 158/49 Pulmonary Artery Pressure 32/19 Cardiac Output 5 Cardiac Index 2.8 - Labs CBC & Chem 7: 03/20/24 01:50 03/20/24 06:47 Labs: Abnormal Lab Results - Last 24 Hours (Table) 03/19/24 03/19/24 03/19/24 Range/Units 04:54 11:27 17:43 WBC (3.8-10.6) k/uL RBC (3.80-5.40) m/uL Hgb (11.4-16.0) gm/dL Hct (34.0-46.0) % Neutrophils # (1.3-7.7) k/uL Sodium (137-145) mmol/L Potassium (3.5-5.1) mmol/L Chloride (98-107) mmol/L BUN (7-17) mg/dL Glucose (74-99) mg/dL POC Glucose (mg/dL) 115 H 135 H (70-110) mg/dL Calcium (8.4-10.2) mg/dL Total Protein (6.3-8.2) g/dL Albumin (3.5-5.0) g/dL Procalcitonin 0.83 H (0.02-0.50) ng/mL 03/19/24 03/20/24 03/20/24 Range/Units 19:32 01:50 01:50 WBC 14.7 H (3.8-10.6) k/uL RBC 2.53 L (3.80-5.40) m/uL Hgb 7.6 L (11.4-16.0) gm/dL Hct 22.6 L (34.0-46.0) % Neutrophils # 12.5 H (1.3-7.7) k/uL Sodium 134 L (137-145) mmol/L Potassium 3.2 L (3.5-5.1) mmol/L Chloride 109 H (98-107) mmol/L BUN 25 H (7-17) mg/dL Glucose 119 H (74-99) mg/dL POC Glucose (mg/dL) 139 H (70-110) mg/dL Calcium 7.8 L (8.4-10.2) mg/dL Total Protein 4.9 L (6.3-8.2) g/dL Albumin 3.0 L (3.5-5.0) g/dL Procalcitonin (0.02-0.50) ng/mL 03/20/24 Range/Units 06:45 WBC (3.8-10.6) k/uL RBC (3.80-5.40) m/uL Hgb (11.4-16.0) gm/dL Hct (34.0-46.0) % Neutrophils # (1.3-7.7) k/uL Sodium (137-145) mmol/L Potassium (3.5-5.1) mmol/L Chloride (98-107) mmol/L BUN (7-17) mg/dL Glucose (74-99) mg/dL POC Glucose (mg/dL) 134 H (70-110) mg/dL Calcium (8.4-10.2) mg/dL Total Protein (6.3-8.2) g/dL Albumin (3.5-5.0) g/dL Procalcitonin (0.02-0.50) ng/mL
--- NOTE | 2024-03-20 11:05 | P.PN ---
Subjective Progress Note Date: 03/20/24 Principal diagnosis: Coronary artery disease. Patient is a 68-year-old female with past medical history significant for brain aneurysm with previous coiling and stent, hypertension, hyperlipidemia, left subclavian stenosis, previous left-sided nephrectomy, hypothyroidism, Mnire's disease, generalized anxiety disorder, and former tobacco dependence. Patient denies any pre-existing lung disease. She does have significant smoking history, smoked 1 pack/day for over 30 years. Patient's primary care provider is marixa Orta out of Dr. Carranza's office. Patient presented to the emergency department back on March 09 with chest pain. Apparently, earlier that morning she was awoken with sudden onset substernal chest pain/tightness. She initially thought this was a anxiety attack as she does have a history of anxiety. No nausea, diaphoresis, shortness of breath. 30 minutes later, the feeling did not subside's, so she did call EMS. Patient did reportedly have a transient episode of A-fib RVR in route to the hospital. Patient was admitted with a diagnosis of non-ST elevation SD. Heart catheterization performed 03/10/2024 demonstrating severe three-vessel coronary artery disease with significant disease involvment of the proximal LAD, demonstrating 60 to 70% , left circumflex artery with 70% stenosis. and 90% stenosis of a nondominant RCA. Follow-up echocardiogram preserved left ventricular ejection fraction of 55 to 60%. No significant valvular abnormalities reported. Cardiothoracic surgery was consulted, patient is scheduled for surgical revascularization tomorrow morning. We were consulted for preoperative pulmonary clearance ventilator management following the procedure. As stated above, patient has no diagnosed history of pre-existing lung disease. She does have significant smoking history over [id number]. Patient did have bedside spirometry which showed an FEV1 2.35 L or 99% of predicted. Chest CTA done on arrival did not show any evidence of pulmonary emboli. There was evidence of mild emphysematous changes. Biapical scarring. Few borderline mildly enlarged lymph nodes in the hilum measuring 1.2 cm. Otherwise no acute findings. Most recent CBC done yesterday with a WBC count 8.4, hemoglobin 14.1, hematocrit 43.2, platelets 251. aPTT currently therapeutic at 67.7. BMP from yesterday: Sodium 140, potassium 4.3, chloride 110, serum bicarb 21, BUN 22, creatinine 0.93, glucose 93. Patient is currently walking the halls on room air. She has no respiratory distress. No current chest pain. Does have normal saline infusing at 50 mL/h. Also, heparin is infusion per protocol. Surgery is scheduled for tomorrow morning. Progress note dated March 16, 2024. 68-year-old female seen in consultation yesterday. Please see the note above. The patient had a off-pump four-vessel bypass surgery done today by Dr. Conklin. Please refer to the operative note. The patient is currently on the ventilator. Ventilator settings include volume assist-control, rate 16, tidal volume 400, FiO2 50%, and PEEP of 5. Blood gases on same settings, with FiO2 of 100%, showed a pO2 of 300, pCO2 of 33, and a pH of 7.399. The patient is on nitroglycerin at 5 mcg/min, propofol at 40 mcg/kg/min, 0.9 at 50 cc an hour, and amiodarone per protocol. In addition, the patient be started on an insulin drip at 1.5 units an hour. The patient's cardiac output is 3.3, and the index is 1.9. Pulmonary artery pressures 27/13. Current labs include a white count 7.9, hemoglobin 8.2, hematocrit 23.7, and a platelet count of 111,000. Sodium 141, potassium 4, chlorides 117, CO2 20, BUN 16, creatinine 0.71. Glucose is 151. Chest x-ray reveals an endotracheal tube, which is 5 cm above the tracheal jaki. There is a left-sided chest tube present. There is a mediastinal tube in the midline. Nasogastric tube was also noted, as well as a Elmora-Rae catheter. There are some bibasilar atelectasis, and a small right apical pneumothorax. Progress note dated March 17, 2024. 68-year-old female seen today in room 264. She is postop day #1, status post off-pump four-vessel bypass surgery. She is on volume assist-control, rate 14, tidal volume 400, FiO2 40%, PEEP of 5. Blood gases show pO2 of 138, pCO2 of 30, pH is 7.38. Repeat blood gases show pO2 of 98, pCO2 31, pH is 7.41. She is on pressure support of 5 and CPAP of 5. The patient can be extubated. Rapid shallow breathing index is 38. The patient is getting saline at 50 cc an hour, insulin at 2 units an hour, and amiodarone 0.5 mg/min. White count is 11, hemog lobin 8.7, hematocrit 25.2, platelet count normal. Sodium 139, potassium 3.3, chlorides 115, CO2 16, BUN 13, creatinine 0.75. Calcium is 7.9. Albumin is 3.4. Chest x-ray shows some postsurgical changes. Previous right apical pneumothorax is not seen. Progress note dated March 18, 2024. 68-year-old female seen today in room 264. She is postoperative day #2, status post off-pump four-vessel bypass grafting. The patient saturations were a bit low. We placed her on BiPAP, with settings of 12/6, and 60%. Patient is getting saline at 20 cc an hour. The patient blood gases showed a pO2 of 68, pCO2 of 28, and a pH of 7.40. This blood gas was consistent with a mixed acid- base disturbance, including a respiratory alkalosis, and metabolic acidosis. She has a nonanion gap hyperchloremic metabolic acidosis. The patient is getting saline at 20 cc an hour. An ultrasound of the right chest, reveals only small amounts of fluid. The patient received Lasix 20 mg IV push. Current labo ratory data includes a white count 15.4, hemoglobin 8.6, hematocrit 24.8, and a platelet count of 152,000. Sodium 137, potassium 4.3, chlorides 112, CO2 18, BUN 16, creatinine 0.87. Glucose 117. Albumin 3.4. X-ray shows a right lower lobe infiltrate/effusion. Small left apical pneumothorax is seen. Progress note dated March 19, 2024. 68-year-old female seen today in room 264. The patient is postoperative day #3, status post off-pump four-vessel bypass surgery. Chest x-rays from yesterday, and this morning, reveal a partial right lower lobe collapse. The patient will undergo bronchoscopy today. The patient is on lactated Ringer's at 30 cc an hour. The patient continues on BiPAP, with settings of 12/5, and 60%. White count of 17.1, hemoglobin 7.8, hematocrit 22.6, and platelet count of 173,000. Blood gases today show pO2 of 78, pCO2 of 30, pH is 7.42. These blood gases are consistent with a mixed acid-base disturbance, including a respiratory alkalosis, and mild metabolic acidosis. Sodium 134, potassium 3.8, chlorides 108, CO2 18, anion gap 8, BUN 28, creatinine 0.99. Glucose 112. Albumin 3.4. Chest x-ray reveals either collapse, or infiltrate, in the right lower lobe, and a very small left apical pneumothorax. Progress note dated March 20, 2024. 60 room 264. She is postoperative day #4, status post off-pump four-vessel bypass surgery. The patient's chest x-ray has shown persistent infiltrate or collapse of the right lower lobe. Yesterday, we did bronchoscopy in the room, and the patient had significant purulent secretions in the right middle lobe but mostly in the right lower lobe. They were suctioned without difficulty. Specimens are sent to the laboratory for analysis. In addition, her procalcitonin level was elevated, and the patient was started on Zosyn empirically. Today she is doing a bit better. She is sitting in the chair next to her hospital bed. She is on 4 L of oxygen. She continues on Zosyn. She is getting lactated Ringer's at 20 cc an hour. White count is 14.7, hemoglobin 7.6, hematocrit 22.6, platelet count normal. Sodium 134, potassium 3.5, chlorides 109, CO2 22, BUN 25, creatinine 0.92. Glucose 134. Albumin is 3. His x-ray continues to show small pleural effusions, and bibasilar infiltrates, right greater than left. Objective - Vital Signs Vital signs: Vital Signs Temp 97.4 F L 03/20/24 08:00 Pulse 86 03/20/24 10:00 Resp 23 03/20/24 10:00 BP 158/66 03/20/24 10:00 Pulse Ox 93 L 03/20/24 10:00 FiO2 60 03/19/24 14:30 Intake & Output 03/19/24 03/20/24 03/20/24 18:59 06:59 18:59 Intake Total 433 416 141 Output Total 1760 1110 0 Balance -1327 -694 141 Weight 75.2 kg Intake: IV 433 416 141 Lactated Ringers 1,000 ml 300 220 20 @ 20 mls/hr IV .Q24H [facility] Rx#:[id number] NS for cardiac output 40 NS for pressure lines 93 96 21 Piperacillin-Tazobactam 3 100 100 .375 gm In Sodium Chloride 0.9% 100 ml @ 25 mls/hr IVPB Q8H [facility] Rx#: [id number] Output: Urine 1760 1110 0 Other: Voiding Method Indwelling Catheter Indwelling Catheter # Voids 0 ABP, PAP, CO, CI - Last Documented Arterial Blood Pressure 158/49 Pulmonary Artery Pressure 32/19 Cardiac Output 5 Cardiac Index 2.8 - Exam No acute distress, currently on nasal O2 at 4 L. HEENT examination is grossly unremarkable. Neck supple. Full range of motion. No adenopathy thyromegaly or neck vein distention. Cardiovascular examination reveals regular rhythm rate. S1-S2 normal. No S3 or S4. No discernible murmur noted. Lungs reveal clear breath sounds. Breath sounds are equal bilaterally. No adventitious lung sounds including wheezes rhonchi or crackles. Abdomen soft bowel sounds. No masses. Extremities are intact. No cyanosis clubbing or edema. Skin is without rash or lesion. Neurologic examination is within normal range. No focal deficits. - Labs CBC & Chem 7: 03/20/24 01:50 03/20/24 06:47 Labs: Abnormal Lab Results - Last 24 Hours (Table) 03/19/24 03/19/24 03/19/24 Range/Units 04:54 11:27 17:43 WBC (3.8-10.6) k/uL RBC (3.80-5.40) m/uL Hgb (11.4-16.0) gm/dL Hct (34.0-46.0) % Neutrophils # (1.3-7.7) k/uL Sodium (137-145) mmol/L Potassium (3.5-5.1) mmol/L Chloride (98-107) mmol/L BUN (7-17) mg/dL Glucose (74-99) mg/dL POC Glucose (mg/dL) 115 H 135 H (70-110) mg/dL Calcium (8.4-10.2) mg/dL Total Protein (6.3-8.2) g/dL Albumin (3.5-5.0) g/dL Procalcitonin 0.83 H (0.02-0.50) ng/mL 12/14/24 12/15/24 12/15/24 Range/Units 19:32 01:50 01:50 WBC 14.7 H (3.8-10.6) k/uL RBC 2.53 L (3.80-5.40) m/uL Hgb 7.6 L (11.4-16.0) gm/dL Hct 22.6 L (34.0-46.0) % Neutrophils # 12.5 H (1.3-7.7) k/uL Sodium 134 L (137-145) mmol/L Potassium 3.2 L (3.5-5.1) mmol/L Chloride 109 H (98-107) mmol/L BUN 25 H (7-17) mg/dL Glucose 119 H (74-99) mg/dL POC Glucose (mg/dL) 139 H (70-110) mg/dL Calcium 7.8 L (8.4-10.2) mg/dL Total Protein 4.9 L (6.3-8.2) g/dL Albumin 3.0 L (3.5-5.0) g/dL Procalcitonin (0.02-0.50) ng/mL 03/20/24 Range/Units 06:45 WBC (3.8-10.6) k/uL RBC (3.80-5.40) m/uL Hgb (11.4-16.0) gm/dL Hct (34.0-46.0) % Neutrophils # (1.3-7.7) k/uL Sodium (137-145) mmol/L Potassium (3.5-5.1) mmol/L Chloride (98-107) mmol/L BUN (7-17) mg/dL Glucose (74-99) mg/dL POC Glucose (mg/dL) 134 H (70-110) mg/dL Calcium (8.4-10.2) mg/dL Total Protein (6.3-8.2) g/dL Albumin (3.5-5.0) g/dL Procalcitonin (0.02-0.50) ng/mL Assessment and Plan Assessment: Postop day #4, status post off-pump four-vessel bypass surgery. Routine postoperative ventilator management. S/P, right lower lobe, for possible pneumonia, and control of airway secretions. Possible collapse/infiltrate, right lower lobe, with small right-sided pleural effusion. Acute non-ST segment elevation myocardial infarction. Multivessel coronary artery disease. Transient episode of atrial fibrillation. History of hypertension. History of hyperlipidemia. History of left subclavian stenosis. History of brain aneurysm, status post coiling 2018, and stenting, 2019. History of of left-sided nephrectomy. History of Mnire's disease. Hypothyroidism. Generalized anxiety disorder. Former tobacco dependence. Plan: Plan dated March 16, 2024. The patient is seen today in room 264. The patient just arrived back from the operating room the patient continues on the mechanical ventilator. Initial settings include volume assist-control, rate 16, tidal volume 400, FiO2 100%, and PEEP of 5. Blood gases showed a pO2 of 300, pCO2 of 33, and a pH of 7.399. The FiO2 was reduced down to 50%. The patient is on nitroglycerin at 5 mcg/min, propofol at 40 mcg/kg/min, saline at 50 cc an hour, and an insulin drip at 1.5 units an hour. The patient is also receiving amiodarone via protocol. The patient's cardiac output was 3.3 with an index of 1.9. Labs, x-rays, and all medications are reviewed. We will continue to follow. We will work towards an early extubation if possible. Plan dated March 17, 2024. The patient appears to be doing relatively well. Currently, she is on pressure support of 5 and CPAP of 5. She is weaning nicely. Rapid shallow breathing index is low. Labs are reviewed. Her blood gases show pO2 of 138, pCO2 30, pH is 7.38. The patient is on amiodarone 0.5 mg/min, and insulin drip at 2 units an hour. We will continue to follow make recommendations along the way. We anticipate the patient being extubated this morning. Will check a cuff leak, and evaluate her secretions, and her mental status. We will continue to follow make recommendations along the way. Prognosis is thought to be generally good. Plan dated March 18, 2024. The patient is seen today in room 264. Her saturations were a bit low so she was placed on BiPAP. BiPAP settings are 12/6, and 60%. The patient did receive Lasix 20 mg IV push. Ultrasound of the right chest revealed only a small pleural effusion. The patient's blood gases show pO2 of 68, pCO2 28, and a pH of 7.40. This blood gases consistent with a mixed acid-base disturbance. The patient will receive 1-1/2 A of sodium bicarbonate IV push. We will continue to follow. Labs, x-rays, and all medications are reviewed. Prognosis is guarded. Plan dated March 19, 2024. With the help of anesthesia, the patient will undergo bronchoscopy, airway examination, therapeutic lavage, and BAL of the right lower lobe. The specimens were sent to the laboratory for analysis. The patient's chest x-ray reveals a persistent infiltrate or collapse, to the right lower lobe, and ultrasound revealed a very small right-sided pleural effusion. Labs, x-rays, and all medications are reviewed. We will continue to follow the patient, make recommendations along the way. The patient remains on BiPAP, with settings of 12/5, and 60%. Plan dated March 20, 2024. The patient is seen today in room 264. The patient continues on nasal O2 at 4 L. She has not required BiPAP since the bronchoscopy yesterday. The chest x- ray is only marginally improved. We started her on Zosyn empirically. Her procalcitonin level was elevated. Procalcitonin level was 0.83. Labs, x-rays, and all medications are reviewed. We will continue to follow the patient, make recommendations. We recommend deep breathing, coughing, clearing of secretions, as well as hourly use of the incentive spirometer device. Time with Patient: Greater than 30
[2024-03-20 12:27] LABS: Glucose,Whole Blood 119 mg/dL (70-110)
[2024-03-20 13:35] LABS: Appearance,BF Hazy (Clear)
--- NOTE | 2024-03-20 13:38 | P.PN ---
Subjective Progress Note Date: 03/20/24 The patient is a 68-year-old female who is currently admitted to the hospital with a non-ST elevated myocardial infarction. She was found to have multivessel coronary artery disease and underwent coronary bypass x 4 with MONZON to LAD and diagonal and left radial artery graft to posterior lateral branch of the circumflex and SVG to OM1. Patient also had modified Morgan-Maze procedure and left atrial appendage closure. Patient had difficulty being weaned from BiPAP and therefore underwent bronchoscopy yesterday. She is now on nasal cannula up in the recliner chair. Patient interviewed and examined sitting up in the recliner chair. She has had significant improvement over the last 24 hours. She denies any current chest pain or difficulty breathing. GENERAL: Ill-appearing, well-nourished and in no acute distress. NECK: Supple without JVD or thyromegaly. LUNGS: Breath sounds diminished to auscultation bilaterally. Respiration equal and unlabored. Fine crackles in the base. HEART: Regular rate and rhythm without murmurs, rubs or gallops. S1 and S2 heard. Heart hugger in place EXTREMITIES: Normal range of motion, no edema. No clubbing or cyanosis. Peripheral pulses intact and strong. TELEMETRY: Sinus rhythm LABS: WBC 14.7, hemoglobin 7.6, hematocrit 22.6, platelet 197, sodium 134, potassium 3.5, BUN 25, creatinine 0.92, AST 29, ALT 15 IMPRESSION: NSTEMI, multivessel coronary artery disease Status post coronary bypass x 4 New onset paroxysmal atrial fibrillation, currently in sinus rhythm Uncontrolled hypertension Headache, resolved History of brain aneurysm status post coiling Hyperlipidemia Hypothyroidism Asymptomatic left subclavian artery stenosis PLAN: Aggressive pulmonary hygiene Continue supportive treatment Further recommendations to be based upon clinical course I am dictating on behalf of Dr Guanakito Ferrer's history/physical and assessment/plan. Objective - Vital Signs Vital signs: Vital Signs Temp 97.9 F 03/20/24 12:24 Pulse 92 03/20/24 13:00 Resp 17 03/20/24 13:00 BP 135/62 03/20/24 13:00 Pulse Ox 97 03/20/24 13:00 FiO2 60 03/19/24 14:30 Intake & Output 03/19/24 03/20/24 03/20/24 18:59 06:59 18:59 Intake Total 433 416 141 Output Total 1760 1110 375 Balance -1327 -694 -234 Weight 75.2 kg Intake: IV 433 416 141 Lactated Ringers 1,000 ml 300 220 20 @ 20 mls/hr IV .Q24H [facility] Rx#:[id number] NS for cardiac output 40 NS for pressure lines 93 96 21 Piperacillin-Tazobactam 3 100 100 .375 gm In Sodium Chloride 0.9% 100 ml @ 25 mls/hr IVPB Q8H [facility] Rx#: [id number] Output: Urine 1760 1110 375 Other: Voiding Method Indwelling Catheter Indwelling Catheter Indwelling Catheter # Voids 0 ABP, PAP, CO, CI - Last Documented Arterial Blood Pressure 158/49 Pulmonary Artery Pressure 32/19 Cardiac Output 5 Cardiac Index 2.8 - Labs CBC & Chem 7: 03/20/24 01:50 03/20/24 06:47 Labs: Abnormal Lab Results - Last 24 Hours (Table) 03/19/24 03/19/24 03/20/24 Range/Units 17:43 19:32 01:50 WBC 14.7 H (3.8-10.6) k/uL RBC 2.53 L (3.80-5.40) m/uL Hgb 7.6 L (11.4-16.0) gm/dL Hct 22.6 L (34.0-46.0) % Neutrophils # 12.5 H (1.3-7.7) k/uL Sodium (137-145) mmol/L Potassium (3.5-5.1) mmol/L Chloride (98-107) mmol/L BUN (7-17) mg/dL Glucose (74-99) mg/dL POC Glucose (mg/dL) 135 H 139 H (70-110) mg/dL Calcium (8.4-10.2) mg/dL Total Protein (6.3-8.2) g/dL Albumin (3.5-5.0) g/dL 03/20/24 03/20/24 03/20/24 Range/Units 01:50 06:45 12:25 WBC (3.8-10.6) k/uL RBC (3.80-5.40) m/uL Hgb (11.4-16.0) gm/dL Hct (34.0-46.0) % Neutrophils # (1.3-7.7) k/uL Sodium 134 L (137-145) mmol/L Potassium 3.2 L (3.5-5.1) mmol/L Chloride 109 H (98-107) mmol/L BUN 25 H (7-17) mg/dL Glucose 119 H (74-99) mg/dL POC Glucose (mg/dL) 134 H 119 H (70-110) mg/dL Calcium 7.8 L (8.4-10.2) mg/dL Total Protein 4.9 L (6.3-8.2) g/dL Albumin 3.0 L (3.5-5.0) g/dL
[2024-03-20 16:45] LABS: Glucose,Whole Blood 136 mg/dL (70-110)
[2024-03-20] MEDS: PANTOPRAZOLE 40 MG TABLET PO SCH (18:15)
[2024-03-20 20:25] LABS: Glucose,Whole Blood 128 mg/dL (70-110)
[2024-03-21 04:43] LABS: Basophils % (A) 0 %; Eosinophils # (A) 0.2 k/uL (0-0.7); Eosinophils % (A) 1 %; HCT 23.4 % (34.0-46.0); HGB 8.1 gm/dL (11.4-16.0); Lymphocytes # (A) 1.6 k/uL (1.0-4.8); Lymphocytes % (A) 14 %; MCH 31.2 pg (25.0-35.0); MCHC 34.8 g/dL (31.0-37.0); MCV 89.6 fL (80.0-100.0); Mean Platelet Volume 7.2; Monocytes # (A) 0.7 k/uL (0-1.0); Monocytes % (A) 6 %; Neutrophils # (A) 8.6 k/uL (1.3-7.7); Neutrophils % (A) 77 %; Platelet Count 276 k/uL (150-450); RBC 2.61 m/uL (3.80-5.40); RDW 15.1 % (11.5-15.5); WBC 11.3 k/uL (3.8-10.6)
[2024-03-21 05:00] LABS: ALT 16 U/L (4-34); AST 25 U/L (14-36); African American GFR (CKD) 82 (>60 ml/min/1.73 sqM); Alkaline Phosphatase 76 U/L (38-126); Anion Gap 6 mmol/L; Blood Urea Nitrogen 18 mg/dL (7-17); Calcium 7.7 mg/dL (8.4-10.2); Carbon Dioxide 26 mmol/L (22-30); Chloride 108 mmol/L (98-107); Glucose 123 mg/dL (74-99); Magnesium 2.2 mg/dL (1.6-2.3); Non-African American GFR(CKD) 71 (>60 ml/min/1.73 sqM); Potassium 3.4 mmol/L (3.5-5.1); Sodium 140 mmol/L (137-145); Total Bilirubin 1.1 mg/dL (0.2-1.3); Total Protein 5.2 g/dL (6.3-8.2)
[2024-03-21] MEDS: POTASSIUM CHLORIDE ER 20 MEQ TAB.ER PO SCH ×3 (06:48→17:58)
[2024-03-21 06:52] LABS: Glucose,Whole Blood 111 mg/dL (70-110)
--- NOTE | 2024-03-21 07:58 | P.PN ---
Subjective Progress Note Date: 03/21/24 Principal diagnosis: Coronary artery disease, non-STEMI this admission, new onset atrial fibrillation. Past medical history significant for brain aneurysm with coiling in 2019 and stent in 2020, hypertension, hyperlipidemia, hypothyroid, asymptomatic left subclavian stenosis, left sided nephrectomy, right renal artery stenosis 60% on CTA in 2020, Mnire's disease, previous tobacco dependence, anxiety, family history of myocardial infarction in both her mother and her father POD#5 off-pump myocardial revascularization with coronary artery bypass grafting x 4 including free MONZON sequentially to diagonal and LAD, left radial artery graft to posterior lateral branch of the circumflex coronary artery, saphenous vein graft to the first obtuse marginal coronary artery. Endovascular vein harvest of the greater saphenous vein from the right lower extremity from mid calf to groin. Endovascular harvest of the left radial artery. Modified Morgan- Maze procedure with bilateral pulmonary vein ablation and ligation of the left atrial appendage with a 40 mm AtriCure clip Acute blood loss anemia and thrombocytopenia, somewhat expected given hemodilution. Right lower lobe collapse, status post day #1 bronchoscopy, airway examination, therapeutic lavage, BAL right lower lobe performed by Dr. Shepard. Patient was seen and examined in follow-up today March 21, 2024 at her bedside in the intensive care unit. She is currently sitting up to the bedside chair, is awake, alert, oriented x 3 and is in no acute apparent distress. The patient states she tolerated her breakfast this morning and denies any complaints of nausea or vomiting. She denies any complaints of shortness of breath at this time or pain, although is remaining to complain of feelings of generalized weakness. She does state that her weakness feels improved today from yesterday. She had her first postoperative shower yesterday and tolerated well. She remains hemodynamically stable and is currently on no inotropic or pressor support. Oxygen saturations are 98% on 4 L nasal cannula and she is ac hieving 2500 mL on her incentive spirometry with encouragement. Bedside telemetry is showing normal sinus rhythm with occasional PACs, heart rate 90 bpm. She has been up ambulating in the intensive care unit hallway with standby assistance from nursing and therapy staff and tolerating well. She remains on Zosyn for antibiotic coverage, bronchial alveolar lavage right lower lung Gram stain showing rare polymorphonuclear leukocytes, rare epithelial cells, rare gram-positive cocci. WBC count continues to trend down and is 11.3 today. She has been afebrile in the last 24 hours. Chest x-ray and laboratory results reviewed. Objective - Vital Signs Vital signs: Vital Signs Temp 98.3 F 03/21/24 00:00 Pulse 84 03/21/24 07:00 Resp 13 03/21/24 07:00 BP 166/74 03/21/24 07:00 Pulse Ox 98 03/21/24 07:00 FiO2 60 03/19/24 14:30 Intake & Output 03/20/24 03/21/24 03/21/24 18:59 06:59 18:59 Intake Total 141 200 Output Total 975 1200 Balance -834 -1000 Weight 75.7 kg Intake: IV 141 100 Lactated Ringers 1,000 ml 20 @ 20 mls/hr IV .Q24H [facility] Rx#:[id number] NS for pressure lines 21 Piperacillin-Tazobactam 3 100 100 .375 gm In Sodium Chloride 0.9% 100 ml @ 25 mls/hr IVPB Q8H [facility] Rx#: [id number] Intake, IV Titration 100 Amount Piperacillin-Tazobactam 3 100 .375 gm In Sodium Chloride 0.9% 100 ml @ 25 mls/hr IVPB Q8H [facility] Rx#: [id number] Output: Urine 975 1200 Other: Voiding Method Indwelling Catheter Bedside Commode # Voids 0 1 ABP, PAP, CO, CI - Last Documented Arterial Blood Pressure 158/49 Pulmonary Artery Pressure 32/19 Cardiac Output 5 Cardiac Index 2.8 - Exam CONSTITUTIONAL: Appears comfortable, cooperative, no apparent acute distress. HEENT: Neck is supple, no JVD, no lymphadenopathy. RESPIRATORY: Lungs sounds essentially clear throughout, diminished to his bilateral bases, right greater than left. Respirations are symmetrical and nonlabored. Currently on 4 L nasal cannula with oxygen saturations 98%. Able to achieve 2500 mL on her incentive spirometry. Strong cough. CARDIOVASCULAR: Regular rhythm and rate. S1 and S2 present, negative for S3, gallop or murmur. Sternum is stable. Palpable peripheral pulses bilaterally, trace edema to her bilateral lower extremities. No calf pain or tenderness noted. Heart hugger in place with patient demonstrating appropriate use. Knee- high BLESSING hose and sequential compression devices in place to her bilateral lower extremities. GASTROINTESTINAL: Abdomen soft, nontender, nondistended. Active bowel sounds present 4 quadrants. Tolerating her diet. Passing flatus. No guarding or rigidity. GENITOURINARY: Continues to void. Urine output 610 mL in the last 8 hours. INTEGUMENTARY: Skin is warm and dry with no evidence of clubbing or cyanosis. Midline sternal incision clean dry and well approximated, covered with dry intact dressing. Right lower extremity EVH sites well approximated without redness or drainage. Left arm radial artery harvest sites clean, dry and approximated. No drainage or redness is present. NEUROLOGIC: Cranial nerves II through XII intact. No focal deficits. MUSKULOSKELETAL: Able to move all extremities, strength equal bilaterally, generalized weakness. PSYCHIATRIC: Alert and oriented to person place and time, appropriate affect, intact judgment and insight. - Allied health notes Allied health notes reviewed: nursing - Labs CBC & Chem 7: 03/21/24 04:25 03/21/24 04:25 Labs: Abnormal Lab Results - Last 24 Hours (Table) 03/19/24 03/20/24 03/20/24 Range/Units 09:00 12:25 16:44 WBC (3.8-10.6) k/uL RBC (3.80-5.40) m/uL Hgb (11.4-16.0) gm/dL Hct (34.0-46.0) % Neutrophils # (1.3-7.7) k/uL Potassium (3.5-5.1) mmol/L Chloride (98-107) mmol/L BUN (7-17) mg/dL Glucose (74-99) mg/dL POC Glucose (mg/dL) 119 H 136 H (70-110) mg/dL Calcium (8.4-10.2) mg/dL Total Protein (6.3-8.2) g/dL Albumin (3.5-5.0) g/dL Fluid Appearance Hazy A (Clear) 03/20/24 03/21/24 03/21/24 Range/Units 20:23 04:25 04:25 WBC 11.3 H (3.8-10.6) k/uL RBC 2.61 L (3.80-5.40) m/uL Hgb 8.1 L (11.4-16.0) gm/dL Hct 23.4 L (34.0-46.0) % Neutrophils # 8.6 H (1.3-7.7) k/uL Potassium 3.4 L (3.5-5.1) mmol/L Chloride 108 H (98-107) mmol/L BUN 18 H (7-17) mg/dL Glucose 123 H (74-99) mg/dL POC Glucose (mg/dL) 128 H (70-110) mg/dL Calcium 7.7 L (8.4-10.2) mg/dL Total Protein 5.2 L (6.3-8.2) g/dL Albumin 3.0 L (3.5-5.0) g/dL Fluid Appearance (Clear) 03/21/24 Range/Units 06:50 WBC (3.8-10.6) k/uL RBC (3.80-5.40) m/uL Hgb (11.4-16.0) gm/dL Hct (34.0-46.0) % Neutrophils # (1.3-7.7) k/uL Potassium (3.5-5.1) mmol/L Chloride (98-107) mmol/L BUN (7-17) mg/dL Glucose (74-99) mg/dL POC Glucose (mg/dL) 111 H (70-110) mg/dL Calcium (8.4-10.2) mg/dL Total Protein (6.3-8.2) g/dL Albumin (3.5-5.0) g/dL Fluid Appearance (Clear) Microbiology - Last 24 Hours (Table) 03/19/24 09:00 Gram Stain - Preliminary Bronchoalviolar Lavage - Right - Imaging and Cardiology Chest x-ray: report reviewed, image reviewed Assessment and Plan Assessment: Coronary artery disease, non-STEMI this admission, status post four-vessel off- pump CABG New onset atrial fibrillation, brief episode, currently normal sinus rhythm, status post ligation of the left atrial appendage as well as modified Morgan-Maze Chest pain, secondary to above Right lower lobe collapse, status post bronchoscopy, airway examination, therapeutic lavage, BAL right lower lobe performed by Dr. Shepard 03/19/2024 History of brain aneurysm with coiling in 2019 and stent in 2019 Hypertension Hyperlipidemia, cholesterol 181, LDL 99 Hypothyroid, TSH 14.2, T4 1.23 Asymptomatic left subclavian stenosis, followed by vascular surgery History of left nephrectomy Right renal artery stenosis 60% on CTA in 2019 Mnire's disease Previous tobacco dependence, preoperative FEV1 99% of predicted Anxiety Family history of myocardial infarction in both her mother and her father Plan: Continue to maximize medical therapy with aspirin, statin, Plavix, and beta- kimo. Metoprolol tartrate increased to 100 mg p.o. twice daily with hold parameters Continue amiodarone for atrial fibrillation prophylaxis. No anticoagulation at this time. Currently normal sinus rhythm. Continue Norvasc for blood pressure and radial artery spasm prophylaxis. Wean oxygen as tolerated. Bronchodilator management and recommendations per pulmonary/critical care services. Encourage incentive spirometry use 10 times every hour while awake. Continue Mucinex 1200 mg p.o. every 12 hours, and Mucomyst 200 mg nebulizer 3 times daily. Will monitor daily labs and chest x-rays, electrolyte replacement per protocol. Increase activity as tolerated, out of bed for all meals. PT/OT/cardiac rehab following. Pain control per current medication regimen, avoid Toradol due to history of left nephrectomy, oxycodone and fentanyl have been discontinued. Insulin management per internal medicine. Patient is not diabetic, preoperative hemoglobin A1c 5.4%. Daily weights, standing. Shower daily. Continue to monitor strict accurate intake and output. May bladder scan every 6 hours and as needed postvoid residual, if greater than 300 mL of urine may straight cath. Continue to follow cultures from bronchoscopy, currently on Zosyn for empiric IV antibiotic management. Continue vitamin C and iron replacement, hemoglobin today 7.6. Transfer orders will be placed to the third floor cardiac stepdown unit. Discharge planning is in place, we will consult inpatient rehab. More recommendations to follow based on patient's clinical course. Time with Patient: Greater than 30
--- NOTE | 2024-03-21 08:08 | P.PN ---
Subjective Progress Note Date: 03/21/24 The patient is a 68-year-old female patient with a past medical history significant for CAD status post CABG x 4 with MONZON to LAD and diagonal as well as radial artery to OM and SVG to PLV of the LCx as well as hypertension and dyslipidemia as well as multiple comorbid conditions [facility] and subsequently she underwent a heart catheterization which revealed severe triple-vessel CAD and also an echo showed normal LV systolic function which she underwent CABG as described above. We CABG was complicated by atrial fibrillation and also anemia requiring blood transfusion March 21, 2024 The patient was seen and evaluated this morning which she is asymptomatic and hemodynamically stable. Her pressure remains elevated and consistent with stage II hypertension. I am going to start the patient on losartan. Please note that the patient does have 1 kidney and we are going to check with the nephrology team. Otherwise she reports no cardiovascular symptoms. The physical examination is remarkable for regular rhythm with a soft systolic murmur and clear breathing sounds bilaterally Assessment CAD status post CABG Preserved LV systolic function Solitary kidney Paroxysmal atrial fibrillation Multiple comorbid conditions Plan Continue the current medical regimen Add losartan to the current medical regimen after checking with the nephrology service Continue antiplatelet Monitor the kidney function and electrolytes and hemoglobin Follow-up with the patient Objective - Vital Signs Vital signs: Vital Signs Temp 98.3 F 03/21/24 00:00 Pulse 84 03/21/24 07:00 Resp 13 03/21/24 07:00 BP 166/74 03/21/24 07:00 Pulse Ox 98 03/21/24 07:00 FiO2 60 03/19/24 14:30 Intake & Output 03/20/24 03/21/24 03/21/24 18:59 06:59 18:59 Intake Total 141 200 Output Total 975 1200 Balance -834 -1000 Weight 75.7 kg Intake: IV 141 100 Lactated Ringers 1,000 ml 20 @ 20 mls/hr IV .Q24H [facility] Rx#:[id number] NS for pressure lines 21 Piperacillin-Tazobactam 3 100 100 .375 gm In Sodium Chloride 0.9% 100 ml @ 25 mls/hr IVPB Q8H [facility] Rx#: [id number] Intake, IV Titration 100 Amount Piperacillin-Tazobactam 3 100 .375 gm In Sodium Chloride 0.9% 100 ml @ 25 mls/hr IVPB Q8H [facility] Rx#: [id number] Output: Urine 975 1200 Other: Voiding Method Indwelling Catheter Bedside Commode # Voids 0 1 ABP, PAP, CO, CI - Last Documented Arterial Blood Pressure 158/49 Pulmonary Artery Pressure 32/19 Cardiac Output 5 Cardiac Index 2.8 - Labs CBC & Chem 7: 03/21/24 04:25 03/21/24 04:25 Labs: Abnormal Lab Results - Last 24 Hours (Table) 03/19/24 03/20/24 03/20/24 Range/Units 09:00 12:25 16:44 WBC (3.8-10.6) k/uL RBC (3.80-5.40) m/uL Hgb (11.4-16.0) gm/dL Hct (34.0-46.0) % Neutrophils # (1.3-7.7) k/uL Potassium (3.5-5.1) mmol/L Chloride (98-107) mmol/L BUN (7-17) mg/dL Glucose (74-99) mg/dL POC Glucose (mg/dL) 119 H 136 H (70-110) mg/dL Calcium (8.4-10.2) mg/dL Total Protein (6.3-8.2) g/dL Albumin (3.5-5.0) g/dL Fluid Appearance Hazy A (Clear) 03/20/24 03/21/24 03/21/24 Range/Units 20:23 04:25 04:25 WBC 11.3 H (3.8-10.6) k/uL RBC 2.61 L (3.80-5.40) m/uL Hgb 8.1 L (11.4-16.0) gm/dL Hct 23.4 L (34.0-46.0) % Neutrophils # 8.6 H (1.3-7.7) k/uL Potassium 3.4 L (3.5-5.1) mmol/L Chloride 108 H (98-107) mmol/L BUN 18 H (7-17) mg/dL Glucose 123 H (74-99) mg/dL POC Glucose (mg/dL) 128 H (70-110) mg/dL Calcium 7.7 L (8.4-10.2) mg/dL Total Protein 5.2 L (6.3-8.2) g/dL Albumin 3.0 L (3.5-5.0) g/dL Fluid Appearance (Clear) 03/21/24 Range/Units 06:50 WBC (3.8-10.6) k/uL RBC (3.80-5.40) m/uL Hgb (11.4-16.0) gm/dL Hct (34.0-46.0) % Neutrophils # (1.3-7.7) k/uL Potassium (3.5-5.1) mmol/L Chloride (98-107) mmol/L BUN (7-17) mg/dL Glucose (74-99) mg/dL POC Glucose (mg/dL) 111 H (70-110) mg/dL Calcium (8.4-10.2) mg/dL Total Protein (6.3-8.2) g/dL Albumin (3.5-5.0) g/dL Fluid Appearance (Clear) Microbiology - Last 24 Hours (Table) 03/19/24 09:00 Gram Stain - Preliminary Bronchoalviolar Lavage - Right
--- NOTE | 2024-03-21 08:24 | XR ---
EXAMINATION TYPE: XR chest 2V DATE OF EXAM: 03/21/2024 6:24 AM COMPARISON: 03/20/2024 CLINICAL INDICATION: Female, 68 years old with history of Postoperative CABG, TECHNIQUE: Frontal and lateral views of the chest are obtained. FINDINGS: Postoperative changes of CABG. Significantly improved pulmonary venous congestion and basil ar atelectasis. Mild residual persists. Small effusions noted. Cardiomediastinal silhouette unremarka ble. IMPRESSION: As above [facility], , 03/21/2024 8:22 AM
--- NOTE | 2024-03-21 08:40 | P.PN ---
Subjective Patient is seen in follow-up for chronic kidney disease. Renal function at baseline. Denies chest pain or shortness of breath. Vital signs are stable. General: No acute distress. HEENT: Head exam is unremarkable. On nasal cannula. LUNGS: No audible rhonchi or wheezes. HEART: Rate and Rhythm are regular. ABDOMEN: Nontender. EXTREMITITES: 1+ edema. Objective - Vital Signs Vital signs: Vital Signs Temp 98.3 F 03/21/24 00:00 Pulse 84 03/21/24 07:00 Resp 13 03/21/24 07:00 BP 166/74 03/21/24 07:00 Pulse Ox 98 03/21/24 07:00 FiO2 60 03/19/24 14:30 Intake & Output 03/20/24 03/21/24 03/21/24 18:59 06:59 18:59 Intake Total 141 200 Output Total 975 1200 Balance -834 -1000 Weight 75.7 kg Intake: IV 141 100 Lactated Ringers 1,000 ml 20 @ 20 mls/hr IV .Q24H [facility] Rx#:[id number] NS for pressure lines 21 Piperacillin-Tazobactam 3 100 100 .375 gm In Sodium Chloride 0.9% 100 ml @ 25 mls/hr IVPB Q8H [facility] Rx#: [id number] Intake, IV Titration 100 Amount Piperacillin-Tazobactam 3 100 .375 gm In Sodium Chloride 0.9% 100 ml @ 25 mls/hr IVPB Q8H [facility] Rx#: [id number] Output: Urine 975 1200 Other: Voiding Method Indwelling Catheter Bedside Commode # Voids 0 1 ABP, PAP, CO, CI - Last Documented Arterial Blood Pressure 158/49 Pulmonary Artery Pressure 32/19 Cardiac Output 5 Cardiac Index 2.8 - Labs CBC & Chem 7: 03/21/24 04:25 03/21/24 04:25 Labs: Abnormal Lab Results - Last 24 Hours (Table) 03/19/24 03/20/24 03/20/24 Range/Units 09:00 12: 16:44 WBC (3.8-10.6) k/uL RBC (3.80-5.40) m/uL Hgb (11.4-16.0) gm/dL Hct (34.0-46.0) % Neutrophils # (1.3-7.7) k/uL Potassium (3.5-5.1) mmol/L Chloride (98-107) mmol/L BUN (7-17) mg/dL Glucose (74-99) mg/dL POC Glucose (mg/dL) 119 H 136 H (70-110) mg/dL Calcium (8.4-10.2) mg/dL Total Protein (6.3-8.2) g/dL Albumin (3.5-5.0) g/dL Fluid Appearance Hazy A (Clear) 03/20/24 03/21/24 03/21/24 Range/Units 20:23 04:25 04:25 WBC 11.3 H (3.8-10.6) k/uL RBC 2.61 L (3.80-5.40) m/uL Hgb 8.1 L (11.4-16.0) gm/dL Hct 23.4 L (34.0-46.0) % Neutrophils # 8.6 H (1.3-7.7) k/uL Potassium 3.4 L (3.5-5.1) mmol/L Chloride 108 H (98-107) mmol/L BUN 18 H (7-17) mg/dL Glucose 123 H (74-99) mg/dL POC Glucose (mg/dL) 128 H (70-110) mg/dL Calcium 7.7 L (8.4-10.2) mg/dL Total Protein 5.2 L (6.3-8.2) g/dL Albumin 3.0 L (3.5-5.0) g/dL Fluid Appearance (Clear) 03/21/24 Range/Units 06:50 WBC (3.8-10.6) k/uL RBC (3.80-5.40) m/uL Hgb (11.4-16.0) gm/dL Hct (34.0-46.0) % Neutrophils # (1.3-7.7) k/uL Potassium (3.5-5.1) mmol/L Chloride (98-107) mmol/L BUN (7-17) mg/dL Glucose (74-99) mg/dL POC Glucose (mg/dL) 111 H (70-110) mg/dL Calcium (8.4-10.2) mg/dL Total Protein (6.3-8.2) g/dL Albumin (3.5-5.0) g/dL Fluid Appearance (Clear) Microbiology - Last 24 Hours (Table) 03/19/24 09:00 Gram Stain - Preliminary Bronchoalviolar Lavage - Right Assessment and Plan Plan: Assessment: 1. 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 2. Status post left nephrectomy. 3. Coronary artery disease status post CABG this admission. 4. Hypokalemia from diuresis. Being replaced. 5. Hypertension with chronic kidney disease with history of renal artery stenosis in the right kidney. Blood pressure control prior to admission with 2 meds. 6. Volume overload. 7. Anemia. Postoperative blood loss. Plan: Repeat IV Lasix 20 mg once today. Losartan added by cardiology. Check renal duplex ultrasound. Avoid nephrotoxins. Check iron studies. Allergic to LEONCIO inhibitor.
[2024-03-21] MEDS: METOPROLOL TARTRATE 50 MG TAB PO SCH (08:46)
[2024-03-21] MEDS: FUROSEMIDE 10 MG/ML 2 ML VIAL IV ONE (08:47)
[2024-03-21] MEDS: LOSARTAN 25 MG TAB PO SCH (08:47)
[2024-03-21] MEDS: POTASSIUM CHLORIDE ER 20 MEQ TAB.ER PO ONE (10:16)
[2024-03-21 11:41] LABS: Glucose,Whole Blood 114 mg/dL (70-110)
--- NOTE | 2024-03-21 13:12 | P.PN ---
Subjective Progress Note Date: 03/21/24 Patient is a 68-year-old female with past medical history significant for brain aneurysm with previous coiling and stent, hypertension, hyperlipidemia, left subclavian stenosis, previous left-sided nephrectomy, hypothyroidism, Mnire's disease, generalized anxiety disorder, and former tobacco dependence. Patient denies any pre-existing lung disease. She does have significant smoking history, smoked 1 pack/day for over 30 years. Patient's primary care provider is marixa Orta out of Dr. Carranza's office. Patient presented to the emergency department back on March 09 with chest pain. Apparently, earlier that morning she was awoken with sudden onset substernal chest pain/tightness. She initially thought this was a anxiety attack as she does have a history of anxiety. No nausea, diaphoresis, shortness of breath. 30 minutes later, the feeling did not subside's, so she did call EMS. Patient did reportedly have a transient episode of A-fib RVR in route to the hospital. Patient was admitted with a diagnosis of non-ST elevation HI. Heart catheterization performed 03/10/2024 demonstrating severe three-vessel coronary artery disease with significant disease involvment of the proximal LAD, demonstrating 60 to 70% , left circumflex artery with 70% stenosis. and 90% stenosis of a nondominant RCA. Follow-up echocardiogram preserved left ventricular ejection fraction of 55 to 60%. No significant valvular abnormalities reported. Cardiothoracic surgery was consulted, patient is scheduled for surgical revascularization tomorrow morning. We were consulted for preoperative pulmonary clearance ventilator management following the procedure. As stated above, patient has no diagnosed history of pre-existing lung disease. She does have significant smoking history over [id number]. Patient did have bedside spirometry which showed an FEV1 2.35 L or 99% of predicted. Chest CTA done on arrival did not show any evidence of pulmonary emboli. There was evidence of mild emphysematous changes. Biapical scarring. Few borderline mildly enlarged lymph nodes in the hilum measuring 1.2 cm. Otherwise no acute findings. Most recent CBC done yesterday with a WBC count 8.4, hemoglobin 14.1, hematocrit 43.2, platelets 251. aPTT currently therapeutic at 67.7. BMP from yesterday: Sodium 140, potassium 4.3, chloride 110, serum bicarb 21, BUN 22, creatinine 0.93, glucose 93. Patient is currently walking the halls on room air. She has no respiratory distress. No current chest pain. Does have normal saline infusing at 50 mL/h. Also, heparin is infusion per protocol. Surgery is scheduled for tomorrow morning. Progress note dated March 16, 2024. 68-year-old female seen in consultation yesterday. Please see the note above. The patient had a off-pump four-vessel bypass surgery done today by Dr. Conklin. Please refer to the operative note. The patient is currently on the ventilator. Ventilator settings include volume assist-control, rate 16, tidal volume 400, FiO2 50%, and PEEP of 5. Blood gases on same settings, with FiO2 of 100%, showed a pO2 of 300, pCO2 of 33, and a pH of 7.399. The patient is on nitroglycerin at 5 mcg/min, propofol at 40 mcg/kg/min, 0.9 at 50 cc an hour, and amiodarone per protocol. In addition, the patient be started on an insulin drip at 1.5 units an hour. The patient's cardiac output is 3.3, and the index is 1.9. Pulmonary artery pressures 27/13. Current labs include a white count 7.9, hemoglobin 8.2, hematocrit 23.7, and a platelet count of 111,000. Sodium 141, potassium 4, chlorides 117, CO2 20, BUN 16, creatinine 0.71. Glucose is 151. Chest x-ray reveals an endotracheal tube, which is 5 cm above the tracheal jaki. There is a left-sided chest tube present. There is a mediastinal tube in the midline. Nasogastric tube was also noted, as well as a Clark-Rae catheter. There are some bibasilar atelectasis, and a small right apical pneumothorax. Progress note dated March 17, 2024. 68-year-old female seen today in room 264. She is postop day #1, status post off-pump four-vessel bypass surgery. She is on volume assist-control, rate 14, tidal volume 400, FiO2 40%, PEEP of 5. Blood gases show pO2 of 138, pCO2 of 30, pH is 7.38. Repeat blood gases show pO2 of 98, pCO2 31, pH is 7.41. She is on pressure support of 5 and CPAP of 5. The patient can be extubated. Rapid shallow breathing index is 38. The patient is getting saline at 50 cc an hour, insulin at 2 units an hour, and amiodarone 0.5 mg/min. White count is 11, hemoglobin 8.7, hematocrit 25.2, platelet count normal. Sodium 139, potassium 3.3, chlorides 115, CO2 16, BUN 13, creatinine 0.75. Calcium is 7.9. Albumin is 3.4. Chest x-ray shows some postsurgical changes. Previous right apical pneumothorax is not seen. Progress note dated March 18, 2024. 68-year-old female seen today in room 264. She is postoperative day #2, status post off-pump four-vessel bypass grafting. The patient saturations were a bit low. We placed her on BiPAP, with settings of 12/6, and 60%. Patient is getting saline at 20 cc an hour. The patient blood gases showed a pO2 of 68, pCO2 of 28, and a pH of 7.40. This blood gas was consistent with a mixed acid- base disturbance, including a respiratory alkalosis, and metabolic acidosis. She has a nonanion gap hyperchloremic metabolic acidosis. The patient is getting saline at 20 cc an hour. An ultrasound of the right chest, reveals only small amounts of fluid. The patient received Lasix 20 mg IV push. Current laboratory data includes a white count 15.4, hemoglobin 8.6, hematocrit 24.8, and a platelet count of 152,000. Sodium 137, potassium 4.3, chlorides 112, CO2 18, BUN 16, creatinine 0.87. Glucose 117. Albumin 3.4. X-ray shows a right lower lobe infiltrate/effusion. Small left apical pneumothorax is seen. Progress note dated March 19, 2024. 68-year-old female seen today in room 264. The patient is postoperative day #3, status post off-pump four-vessel bypass surgery. Chest x-rays from yesterday, and this morning, reveal a partial right lower lobe collapse. The patient will undergo bronchoscopy today. The patient is on lactated Ringer's at 30 cc an hour. The patient continues on BiPAP, with settings of 12/5, and 60%. White count of 17.1, hemoglobin 7.8, hematocrit 22.6, and platelet count of 173,000. Blood gases today show pO2 of 78, pCO2 of 30, pH is 7.42. These blood gases are consistent with a mixed acid-base disturbance, including a respiratory alkalosis, and mild metabolic acidosis. Sodium 134, potassium 3.8, chlorides 108, CO2 18, anion gap 8, BUN 28, creatinine 0.99. Glucose 112. Albumin 3.4. Chest x-ray reveals either collapse, or infiltrate, in the right lower lobe, and a very small left apical pneumothorax. Progress note dated March 20, 2024. 60 room 264. She is postoperative day #4, status post [facility] The patient's chest x-ray has shown persistent infiltrate or collapse of the right lower lobe. Yesterday, we did bronchoscopy in the room, and the patient had significant purulent secretions in the right middle lobe but mostly in the right lower lobe. They were suctioned without difficulty. Specimens are sent to the laboratory for analysis. In addition, her procalcitonin level was elevated, and the patient was started on Zosyn empirically. Today she is doing a bit better. She is sitting in the chair next to her hospital bed. She is on 4 L of oxygen. She continues on Zosyn. She is getting lactated Ringer's at 20 cc an hour. White count is 14.7, hemoglobin 7.6, hematocrit 22.6, platelet count normal. Sodium 134, potassium 3.5, chlorides 109, CO2 22, BUN 25, creatinine 0.92. Glucose 134. Albumin is 3. His x-ray continues to show small pleural effusions, and bibasilar infiltrates, right greater than left. On 03/21/2024, the patient is postop day #5. She is calm and comfortable sitting up in a chair. She is using the incentive spirometer. No significant respiratory distress. She underwent a bronchoscopy and a bronchioloalveolar lavage of the right lower lobe. Cultures are still negative. Repeat chest x- ray still showing new consolidation right lung base along with bilateral pleural effusions slightly worse on the right. She is using the incentive spirometer, pulling approximately 2500 cc. Her cardiac rhythm is sinus. She is on no pressors. She is awake and alert and communicating. Sternum is stable clean and intact. She remains on IV Zosyn as a broad-spectrum antibiotic coverage. The blood work from today shows improvement in her white cell count which is currently down to 11.3 with a hemoglobin of 8.1 and a platelet count of 276. So dium is at 140, BUN is 18 with a creatinine of 0.8, electrolytes are all within normal limits. She is afebrile. Potassium level is being replaced. She remains on aspirin and Plavix. She is on amiodarone for A-fib prophylaxis for milligrams p.o. twice a day. She is still on metoprolol at a dose of 100 mg p.o. 3 times daily. She is on losartan 12.5 mg p.o. daily. No other significant events overnight. Objective - Vital Signs Vital signs: Vital Signs Temp 98.3 F 03/21/24 00:00 Pulse 84 03/21/24 07:00 Resp 13 03/21/24 07:00 BP 166/74 03/21/24 07:00 Pulse Ox 98 03/21/24 07:00 FiO2 60 03/19/24 14:30 Intake & Output 03/20/24 03/21/24 03/21/24 18:59 06:59 18:59 Intake Total 141 200 Output Total 975 1200 Balance -834 -1000 Weight 75.7 kg Intake: IV 141 100 Lactated Ringers 1,000 ml 20 @ 20 mls/hr IV .Q24H ALISIA Rx#:[id number] NS for pressure lines 21 Piperacillin-Tazobactam 3 100 100 .375 gm In Sodium Chloride 0.9% 100 ml @ 25 mls/hr IVPB Q8H [facility] Rx#: [id number] Intake, IV Titration 100 Amount Piperacillin-Tazobactam 3 100 .375 gm In Sodium Chloride 0.9% 100 ml @ 25 mls/hr IVPB Q8H [facility]ISIA Rx#: [id number] Output: Urine 975 1200 Other: Voiding Method Indwelling Catheter Bedside Commode # Voids 0 1 ABP, PAP, CO, CI - Last Documented Arterial Blood Pressure 158/49 Pulmonary Artery Pressure 32/19 Cardiac Output 5 Cardiac Index 2.8 - Exam No acute distress, currently on nasal O2 at 4 L. HEENT examination is grossly unremarkable. Neck supple. Full range of motion. No adenopathy thyromegaly or neck vein distention. Cardiovascular examination reveals regular rhythm rate. S1-S2 normal. No S3 or S4. No discernible murmur noted. Lungs reveal clear breath sounds. Breath sounds are equal bilaterally. No adventitious lung sounds including wheezes rhonchi or crackles. Abdomen soft bowel sounds. No masses. Extremities are intact. No cyanosis clubbing or edema. Skin is without rash or lesion. Neurologic examination is within normal range. No focal deficits. - Labs CBC & Chem 7: 03/21/24 04:25 03/21/24 11:37 Labs: Abnormal Lab Results - Last 24 Hours (Table) 03/19/24 03/20/24 03/20/24 Range/Units 09:00 12:25 16:44 WBC (3.8-10.6) k/uL RBC (3.80-5.40) m/uL Hgb (11.4-16.0) gm/dL Hct (34.0-46.0) % Neutrophils # (1.3-7.7) k/uL Potassium (3.5-5.1) mmol/L Chloride (98-107) mmol/L BUN (7-17) mg/dL Glucose (74-99) mg/dL POC Glucose (mg/dL) 119 H 136 H (70-110) mg/dL Calcium (8.4-10.2) mg/dL Total Protein (6.3-8.2) g/dL Albumin (3.5-5.0) g/dL Fluid Appearance Hazy A (Clear) 03/20/24 03/21/24 03/21/24 Range/Units 20:23 04:25 04:25 WBC 11.3 H (3.8-10.6) k/uL RBC 2.61 L (3.80-5.40) m/uL Hgb 8.1 L (11.4-16.0) gm/dL Hct 23.4 L (34.0-46.0) % Neutrophils # 8.6 H (1.3-7.7) k/uL Potassium 3.4 L (3.5-5.1) mmol/L Chloride 108 H (98-107) mmol/L BUN 18 H (7-17) mg/dL Glucose 123 H (74-99) mg/dL POC Glucose (mg/dL) 128 H (70-110) mg/dL Calcium 7.7 L (8.4-10.2) mg/dL Total Protein 5.2 L (6.3-8.2) g/dL Albumin 3.0 L (3.5-5.0) g/dL Fluid Appearance (Clear) 03/21/24 Range/Units 06:50 WBC (3.8-10.6) k/uL RBC (3.80-5.40) m/uL Hgb (11.4-16.0) gm/dL Hct (34.0-46.0) % Neutrophils # (1.3-7.7) k/uL Potassium (3.5-5.1) mmol/L Chloride (98-107) mmol/L BUN (7-17) mg/dL Glucose (74-99) mg/dL POC Glucose (mg/dL) 111 H (70-110) mg/dL Calcium (8.4-10.2) mg/dL Total Protein (6.3-8.2) g/dL Albumin (3.5-5.0) g/dL Fluid Appearance (Clear) Microbiology - Last 24 Hours (Table) 03/19/24 09:00 Gram Stain - Preliminary Bronchoalviolar Lavage - Right Assessment and Plan Plan: Postop day #5, status post off-pump four-vessel bypass surgery. Postthoracotomy, currently on oxygen 4L/min nasal cannula Right lower lobe collapse/infiltrate, right lower lobe, with small right-sided pleural effusion. The patient underwent a bronchoscopy, airway examination, therapeutic lavage, BAL to her right lower lobe on 03/19/[address] Shepard, secondary to right lower lobe collapse. She was started on Zosyn for antibiotic coverage and her Leukocytosis, WBC count is trending down and is 11 Multivessel coronary disease and the patient is status post acute non-ST segment elevation myocardial infarction. New onset atrial fibrillation, brief episode, currently normal sinus rhythm, status post ligation of the left atrial appendage as well as modified Morgan-Maze. History of hypertension. History of hyperlipidemia. History of left subclavian stenosis. History of brain aneurysm, status post coiling 2018, and stenting, 2019. History of of left-sided nephrectomy Right renal artery stenosis 60% on CTA in 2019 History of Mnire's disease. Hypothyroidism. Generalized anxiety disorder. Former tobacco dependence. Plan: Clinically stable Oxygenation stable and the patient is currently on 4 L of oxygen by nasal cannula No significant respite distress at rest Using incentive spirometer White cell count is improving Continue IV Zosyn Chest x-ray from today was noted and the patient has consolidation and small effusion on the right Hemodynamically stable Cardiac rhythm is sinus Continue combination of aspirin and Plavix Continue metoprolol 100 mg p.o. twice a day Losartan 12.5 mg p.o. daily Amlodipine 5 mg p.o. twice a day Amiodarone 4 mg p.o. twice a day Oral iron Thyroid hormone replacement Increase mobility and ambulation Wean down the FiO2 as tolerated to maintain saturation above 90% Monitor hemoglobin which is currently at 8.1 Will continue to follow
--- NOTE | 2024-03-21 14:22 | P.CONS ---
History of Present Illness - Reason for Consult Consult date: 03/21/24 Rehab Recommendations - Chief Complaint S/P CABGx4 - History of Present Illness Ana Talavera is a 68 year old, right handed, , who lives in a single story manufactured home, with 4-5 STFD with HR. Prior to admission, pt was ambulating without an assistive device. Pt was independent for basic/advanced ADLs. Support system: son and neighbors. Pt was admitted on 03/09/24 for chest pain. She was found to have multivessel CAD, NSTEMI and new onset atrial fibrillation. She underwent coronary artery bypass grafting x 4 on 03/16/24. Coronary bypass included MONZON to LAD and diagonal and left radial artery graft to posterior lateral branch of the circumflex and SVG to OM1. Patient also had modified Morgan-Maze procedure and left atrial appendage closure. Records also indicate acute blood loss anemia, thrombocytopenia, hypokalemia and leukocytosis. Due to difficulty being weaned from BiPAP and right lower lobe lung collapse, patient underwent a bronchoscopy performed by Dr. Shepard on 03/19/24 for airway examination, therapeutic lavage and BAL right lower lobe. She is on Zosyn for empiric antibiotic coverage. PM&R was consulted for rehab recommendations post discharge. Therapy progress: Therapy evaluations are pending. 03/21/24: Patient seen and examined sitting in chair eating lunch. Patient denies CP, SOB and abdominal pain. Reports occasional palpitations, generalized body aches and decreased appetite. Denies any pain. Reports she was not previously on home oxygen prior to arrival, currently on 3L NC. Review of Systems As above in subjective. Past Medical History Past Medical History: Hearing Disorder / Deafness, Hyperlipidemia, Hypertension, Respiratory Disorder, Thyroid Disorder, Vascular Disorder Additional Past Medical History / Comment(s): 03/2019 brain aneurysm with rupture-went to [facility] and had brain coil and recently had brain stent, meniere's disese/vertigo and had surgery behind R ear, bilateral [place]/wears aides, L ureteral hernia surgically repaired/then scarred causing blockage and had L nephrectomy, murmur, bronchitis, hypothyroid, sinus problems/allergies and recent sinus infection, bronchitis. History of Any Multi-Drug Resistant Organisms: None Reported Past Surgical History: Hysterectomy, Orthopedic Surgery Additional Past Surgical History / Comment(s): Left nephrectomy, brain aneurysm with coil then stent in brain, R behind ear surgery for Meniere's, colonoscopy. Past Anesthesia/Blood Transfusion Reactions: No Reported Reaction Additional Past Anesthesia/Blood Transfusion Reaction / Comm: Pt has received blood with misscarriage and when had hysterectomy without reaction. Past Psychological History: Anxiety, Depression, Panic Disorder Smoking Status: Former smoker - Past Family History Mother Family Medical History: Hypertension Additional Family Medical History / Comment(s): Mother is . Father Family Medical History: Diabetes Mellitus Additional Family Medical History / Comment(s): Father is Medications and Allergies Home Medications Medication Instructions Recorded Confirmed Type Calcium Carbonate/Vitamin D3 2 tab PO DAILY 09/21/14 03/09/24 History [Calcium 600-Vit D3 400 Tablet] cycloSPORINE [Restasis] 1 drop BOTH EYES BID 09/21/14 03/09/24 History Vitamin E (Dl,Tocopheryl Acet) 400 unit PO DAILY 04/18/19 03/09/24 History [Vitamin E (400 Iu = 180 mg)] Clopidogrel Bisulfate [Plavix] 75 mg PO DAILY 11/24/19 03/09/24 History Cyanocobalamin (Vitamin B-12) 1,000 mcg PO DAILY 11/24/19 03/09/24 History [Vitamin B-12] LORazepam [Ativan] 0.5 mg PO BID 11/24/19 03/09/24 History Vitamin B Complex/Folic Acid 1 tab PO DAILY 11/24/19 03/09/24 History [B-Complex Tablet] Levothyroxine Sodium [Synthroid] 88 mcg PO DAILY 03/09/24 03/09/24 History Metoprolol Tartrate [Lopressor] 75 mg PO BID 03/09/24 03/09/24 History Multivit-Min/Iron/Folic/Lutein 1 tab PO DAILY 03/09/24 03/09/24 History [Centrum Silver Women Tablet] Pitavastatin Calcium [Livalo] 1 mg PO HS 03/09/24 03/09/24 History amLODIPine [Norvasc] 5 mg PO BID 03/09/24 03/09/24 History Allergies Allergy/AdvReac Type Severity Reaction Status Date / Time clarithromycin [From Biaxin] Allergy Unknown Verified 03/09/24 08:27 clonidine Allergy Swelling Verified 03/09/24 08:27 Iodinated Contrast Media Allergy Unknown Verified 03/09/24 08:27 [Iodinated Contrast Media - IV Dye] levofloxacin [From Levaquin] Allergy Unknown Verified 03/09/24 08:27 methylprednisolone Allergy Rash/Hives Verified 03/09/24 08:27 [From Medrol] moxifloxacin HCl Allergy Unknown Verified 03/09/24 08:27 [From Avelox] scopolamine Allergy Rash/Hives Verified 03/09/24 08:27 [From Transderm-Scop] Sulfa (Sulfonamide Allergy Unknown Verified 03/09/24 08:27 Antibiotics) ciprofloxacin [From Cipro] AdvReac Rash/Hives Verified 03/09/24 08:27 clindamycin AdvReac HEARTBURN Verified 03/09/24 08:27 doxycycline AdvReac Headache & Verified 03/09/24 08:27 Vomitting nitrofurantoin AdvReac Headache & Verified 03/09/24 08:27 [From Macrobid] Vomitting nitrofurantoin AdvReac Headache & Verified 03/09/24 08:27 macrocrystalline Vomitting [From Macrobid] Physical Exam Vitals: Vital Signs Temp Pulse Resp BP Pulse Ox 03/21/24 09:21 92 18 03/21/24 09:12 89 18 03/21/24 09:03 94 L 03/21/24 07:00 84 13 166/74 98 03/21/24 06:00 79 18 151/71 98 03/21/24 05:00 80 24 157/69 95 03/21/24 04:00 79 21 147/67 93 L 03/21/24 03:00 83 26 H 134/65 97 03/21/24 02:00 75 18 150/68 94 L 03/21/24 01:00 77 19 138/74 96 03/21/24 00:00 98.3 F 73 28 H 154/72 94 L 03/20/24 23:06 76 19 154/72 97 03/20/24 23:00 77 20 147/68 96 03/20/24 22:00 77 23 157/63 93 L 03/20/24 21:00 89 22 97 03/20/24 20:30 93 03/20/24 20:19 87 03/20/24 20:00 97.9 F 94 19 146/67 03/20/24 19:00 84 22 146/67 97 03/20/24 18:00 98 20 101/77 95 03/20/24 17:00 81 21 96 03/20/24 16:03 85 03/20/24 16:00 86 22 101/77 95 03/20/24 15:00 87 20 124/76 97 03/20/24 14:00 84 27 H 135/62 95 03/20/24 13:00 92 17 135/62 97 03/20/24 12:24 97.9 F 81 12 03/20/24 11:00 80 19 142/70 96 Intake and Output 03/20/24 03/21/24 03/21/24 22:59 06:59 14:59 Intake Total 100 100 Output Total 1000 800 Balance -900 -700 Intake: IV 100 Piperacillin-Tazobactam 3 100 .375 gm In Sodium Chloride 0.9% 100 ml @ 25 mls/hr IVPB Q8H [facility] Rx#: [id number] Intake, IV Titration 100 Amount Piperacillin-Tazobactam 3 100 .375 gm In Sodium Chloride 0.9% 100 ml @ 25 mls/hr IVPB Q8H [facility] Rx#: [id number] Output: Urine 1000 800 Other: Voiding Method Bedside Commode Bedside Commode # Voids 0 1 General: Well-developed, well-nourished, female, in no acute distress, sitting in chair eating lunch HEENT: NC/AT, external ears intact, hearing intact to conversational speech Cardiovascular: B/L calves are supple, nontender, no cords, trace BLLE peripheral edema, clinical research monitor in place Respiratory: Even and unlabored breathing on 3L O2 Abdomen: Soft, nontender, nondistended Genitourinary: no suprapubic tenderness Musculoskeletal: ROM WFL EXCEPT: generalized weakness Neurological: Alert and oriented x 4. CN II-XII: Grossly intact. Speech is clear, fluent MMT: B/L UE SABD 4+/5; B/L UE EE/EE/FABD/WE/HG - 5/5 B/L LE HF/EHL 4+/5; B/L LE KE/DF 5/5 Reflexes: brachioradialis, biceps, triceps, patellar and achilles - 2+ Sensation: Intact to light touch bilateral upper and lower extremities. Skin: Skin intact where visible to head, neck, and bilateral upper and lower extremities EXCEPT: midline chest incision without erythema, edema or drainage; IV Psychiatric: Mood calm, affect appropriate, cooperative Results CBC & Chem 7: 03/22/24 05:23 03/22/24 05:23 Labs: Abnormal Lab Results - Last 24 Hours (Table) 03/19/24 03/20/24 03/20/24 Range/Units 09:00 12:25 16:44 WBC (3.8-10.6) k/uL RBC (3.80-5.40) m/uL Hgb (11.4-16.0) gm/dL Hct (34.0-46.0) % Neutrophils # (1.3-7.7) k/uL Potassium (3.5-5.1) mmol/L Chloride (98-107) mmol/L BUN (7-17) mg/dL Glucose (74-99) mg/dL POC Glucose (mg/dL) 119 H 136 H (70-110) mg/dL Calcium (8.4-10.2) mg/dL Total Protein (6.3-8.2) g/dL Albumin (3.5-5.0) g/dL Fluid Appearance Hazy A (Clear) 03/20/24 03/21/24 03/21/24 Range/Units 20:23 04:25 04:25 WBC 11.3 H (3.8-10.6) k/uL RBC 2.61 L (3.80-5.40) m/uL Hgb 8.1 L (11.4-16.0) gm/dL Hct 23.4 L (34.0-46.0) % Neutrophils # 8.6 H (1.3-7.7) k/uL Potassium 3.4 L (3.5-5.1) mmol/L Chloride 108 H (98-107) mmol/L BUN 18 H (7-17) mg/dL Glucose 123 H (74-99) mg/dL POC Glucose (mg/dL) 128 H (70-110) mg/dL Calcium 7.7 L (8.4-10.2) mg/dL Total Protein 5.2 L (6.3-8.2) g/dL Albumin 3.0 L (3.5-5.0) g/dL Fluid Appearance (Clear) 03/21/24 Range/Units 06:50 WBC (3.8-10.6) k/uL RBC (3.80-5.40) m/uL Hgb (11.4-16.0) gm/dL Hct (34.0-46.0) % Neutrophils # (1.3-7.7) k/uL Potassium (3.5-5.1) mmol/L Chloride (98-107) mmol/L BUN (7-17) mg/dL Glucose (74-99) mg/dL POC Glucose (mg/dL) 111 H (70-110) mg/dL Calcium (8.4-10.2) mg/dL Total Protein (6.3-8.2) g/dL Albumin (3.5-5.0) g/dL Fluid Appearance (Clear) Microbiology - Last 24 Hours (Table) 03/19/24 09:00 Gram Stain - Preliminary Bronchoalviolar Lavage - Right Assessment and Plan Assessment: #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 -Comprehensive therapies #NSTEMI/multivessel coronary artery disease S/P CABG x4 #Right lower lobe lung collapse/infiltrate with small right-sided pleural effusi on S/P bronchoscopy -BAL results pending -On Zosyn for antibiotic coverage #Leukocytosis -03/21 - WBC 11.3 #Acute blood loss anemia -03/21 - HGB 8.1 #Hypokalemia -03/21 - Potassium 3.4 #Acute hypoxic respiratory failure -S/P intubation/extubation, on o2 via NC, not previously on home o2 #New onset paroxysmal atrial fibrillation with RVR -No anticoagulation per primary team per records -Amiodarone and metoprolol per JUN #Solitary Kidney #Anxiety -Ativan 0.5 mg QID PRN #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 # Diet -Per EMR # Skin/wound: Skin/Wound care to follow as needed -+Chest surgical incision # Pain Management -Tylenol 1,000 mg Q6H # DVT Prophylaxis: Defer to Ortho/IM management. -Heparin SQ per MAR # Comorbidities: HTN, hypothyroidism, hyperlipidemia, asymptomatic left subclavian artery stenosis, Mnire's disease, previous tobacco dependence # Your medical dx and mgt Goals: Modified Independent mobility and ADLS both basic and advanced; increased functional mobility/strength; increased balance, safety, endurance. Improvement in medical issues through your care. Barriers: Endurance, oxygen therapy, generalized weakness, fall risk Discharge recommendation: Patient is still pending therapy evaluations. Would anticipate patient would make a good IPR candidate, but need to review therapy notes first. Patient would also require an insurance authorization. Will follow patient's case and make further recommendations after review of therapy evaluations. Thank you for this consultation. Patient seen and examined in collaboration with Dr. Martínez. Patient seen and examined in coordination with Elba Dow NP; agree with above, note edited as needed.
[2024-03-21 15:46] LABS: % Iron Saturation 22.56 (12.00-45.00)
[2024-03-21] MEDS: MAGNESIUM HYDROXIDE 2,400 MG/30 ML CUP PO PRN (16:44)
[2024-03-21] MEDS: DEXTROSE 5% IN WATER 100 ML with AMIODARONE 150 MG IV PRN (16:48)
[2024-03-21 17:02] LABS: Glucose,Whole Blood 165 mg/dL (70-110)
--- NOTE | 2024-03-21 17:21 | P.PN ---
Subjective Progress Note Date: 03/21/24 Hospital Course: 68-year-old female with PMH of CAD s/p CABG x 4 with MONZON to LAD, hypertension, dyslipidemia, CKD stage II, solitary kidney status post nephrectomy, who was admitted to the hospital with ACS and underwent heart cath that revealed severe triple-vessel CAD, normal LVEF function, patient underwent CABG that was complicated by acute blood loss anemia requiring blood transfusion. She also had right lower lobe collapse and underwent bronchoscopy with therapeutic lavage started on Zosyn for empiric coverage. Patient also had a brief episode of new onset A-fib, converted to sinus, status post left atrial appendage as well as modified Morgan-Maze. Patient is being followed for CKD by nephrology, renal duplex ordered and pending, iron studies pending IPR is following, pending therapy evaluation, patient would be a good candidate for IPR and will require insurance authorization. Pertinent Imaging: [] Subjective: Patient was seen Nicomide at bedside this morning, feeling generally well, had a good restful night, complains of some postop pain [] Pertinent positives and negatives as discussed above, a complete review of systems was performed and all other systems are negative. Vitals Signs Reviewed. General: [nontoxic], [no distress], [appears at stated age] Derm: [warm], [dry] Head: [atraumatic], [normocephalic], [symmetric] Eyes: [EOMI], [no lid lag], [anicteric sclera] Mouth: [no lip lesion], [mucus membranes moist] Cardiovascular: [S1S2 reg], [no murmur] Lungs: [CTA bilateral], [no rhonchi, no rales] , [no accessory muscle use] Abdominal: [soft], [ nontender to palpation], [no guarding], [no appreciable organomegaly] Ext: [no gross muscle atrophy], [no edema], [no contractures] Neuro: [ CN II-XI grossly intact], [no focal neuro deficits] Psych: [Alert], [oriented], [appropriate affect] Data Reviewed Today: Pertinent Labs: Hemoglobin stable at 8.1, mild leukocytosis 11.3, potassium 3.4, improved after supplementation, creatinine normal 0.84, glucose is well- controlled, iron studies reviewed as below, Imaging: Chest x-ray improved congestion compared to yesterday Assessment and Plan: CAD status post CABG -Continue dual antiplatelet, continue metoprolol 100 twice daily, losartan 12.5 daily, amlodipine 5 mg, amiodarone 400 mg twice daily, atorvastatin 40 CKD stage II, solitary kidney, status post left nephrectomy Hyperkalemia -Nephrology following, IV Lasix 20 once 03/21/2024 -Losartan added by cardiology -US renal duplex ordered, pending -Potassium 3.4 today New onset atrial fibrillation, brief episode, currently normal sinus rhythm, status post ligation of the left atrial appendage as well as modified Morgan-Maze -No anticoagulation at this time recommended -Continue amiodarone 400 twice daily, continue metoprolol, dose increased to 100 twice daily Right lower lobe collapse, status post bronchoscopy, airway examination, therapeutic lavage, BAL right lower lobe performed by Dr. Shepard 03/19/2024 Acute hypoxic respiratory failure possibly due to volume overload -Incentive spirometry, daily labs, chest x-ray -Phonology following -Follow-up final cultures -IV Lasix 20 once -Wean off oxygen as tolerated Acute blood loss anemia likely after CABG, combination of iron deficiency and anemia of chronic disease -Hemoglobin is stable above 8 -Iron is low 37, TIBC 164, ferritin 338,204 -Due to patient's significant history of coronary artery disease, will transfuse IV iron once, followed by oral supplementation Hypertension: Continue current treatment, losartan added by cardiology, patient is allergic to LEONCIO 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 status post brain coiling followed by stenting DVT ppx: Subcu heparin per CT surgery Anticipated discharge place: Possible IPR, pending PT OT evaluation Anticipated discharge time: 48 hours Objective - Vital Signs Vital signs: Vital Signs Temp 97.4 F L 03/21/24 16:00 Pulse 106 H 03/21/24 17:00 Resp 19 03/21/24 17:00 BP 138/62 03/21/24 17:00 Pulse Ox 96 03/21/24 17:00 FiO2 60 03/19/24 14:30 Intake & Output 03/20/24 03/21/24 03/21/24 18:59 06:59 18:59 Intake Total 141 200 200 Output Total 975 1200 1300 Balance -834 -1000 -1100 Weight 75.7 kg 73.2 kg Intake: IV 141 100 200 Dextrose 5% in Water 100 100 ml @ 618 mls/hr IV .Q10M PRN with Amiodarone 150 mg Rx#:[id number] Lactated Ringers 1,000 ml 20 @ 20 mls/hr IV .Q24H [facility] Rx#:[id number] NS for pressure lines 21 Piperacillin-Tazobactam 3 100 100 100 .375 gm In Sodium Chloride 0.9% 100 ml @ 25 mls/hr IVPB Q8H [facility] Rx#: [id number] Intake, IV Titration 100 Amount Piperacillin-Tazobactam 3 100 .375 gm In Sodium Chloride 0.9% 100 ml @ 25 mls/hr IVPB Q8H [facility] Rx#: [id number] Output: Urine 975 1200 1300 Other: Voiding Method Indwelling Catheter Bedside Commode Bedside Commode # Voids 0 1 1 ABP, PAP, CO, CI - Last Documented Arterial Blood Pressure 158/49 Pulmonary Artery Pressure 32/19 Cardiac Output 5 Cardiac Index 2.8 - Labs CBC & Chem 7: 03/21/24 04:25 03/21/24 15:41 Labs: Abnormal Lab Results - Last 24 Hours (Table) 03/20/24 03/21/24 03/21/24 Range/Units 20:23 04:25 04:25 WBC 11.3 H (3.8-10.6) k/uL RBC 2.61 L (3.80-5.40) m/uL Hgb 8.1 L (11.4-16.0) gm/dL Hct 23.4 L (34.0-46.0) % Neutrophils # 8.6 H (1.3-7.7) k/uL Potassium 3.4 L (3.5-5.1) mmol/L Chloride 108 H (98-107) mmol/L BUN 18 H (7-17) mg/dL Glucose 123 H (74-99) mg/dL POC Glucose (mg/dL) 128 H (70-110) mg/dL Calcium 7.7 L (8.4-10.2) mg/dL Iron (50-170) UG/DL TIBC (228-460) UG/DL Transferrin (204.0-354.0) mg/dL Ferritin (10.0-291.0) ng/mL Total Protein 5.2 L (6.3-8.2) g/dL Albumin 3.0 L (3.5-5.0) g/dL 03/21/24 03/21/24 03/21/24 Range/Units 04:25 06:50 11:39 WBC (3.8-10.6) k/uL RBC (3.80-5.40) m/uL Hgb (11.4-16.0) gm/dL Hct (34.0-46.0) % Neutrophils # (1.3-7.7) k/uL Potassium (3.5-5.1) mmol/L Chloride (98-107) mmol/L BUN (7-17) mg/dL Glucose (74-99) mg/dL POC Glucose (mg/dL) 111 H 114 H (70-110) mg/dL Calcium (8.4-10.2) mg/dL Iron 37 L (50-170) UG/DL TIBC 164 L (228-460) UG/DL Transferrin 117.0 L (204.0-354.0) mg/dL Ferritin 338.0 H (10.0-291.0) ng/mL Total Protein (6.3-8.2) g/dL Albumin (3.5-5.0) g/dL 03/21/24 Range/Units 17:00 WBC (3.8-10.6) k/uL RBC (3.80-5.40) m/uL Hgb (11.4-16.0) gm/dL Hct (34.0-46.0) % Neutrophils # (1.3-7.7) k/uL Potassium (3.5-5.1) mmol/L Chloride (98-107) mmol/L BUN (7-17) mg/dL Glucose (74-99) mg/dL POC Glucose (mg/dL) 165 H (70-110) mg/dL Calcium (8.4-10.2) mg/dL Iron (50-170) UG/DL TIBC (228-460) UG/DL Transferrin (204.0-354.0) mg/dL Ferritin (10.0-291.0) ng/mL Total Protein (6.3-8.2) g/dL Albumin (3.5-5.0) g/dL Microbiology - Last 24 Hours (Table) 03/19/24 09:00 Gram Stain - Preliminary Bronchoalviolar Lavage - Right Bronchial Washings Culture - Preliminary
[2024-03-21] MEDS: SODIUM FERRIC GLUCONAT-SUCROSE 125 MG in SODIUM CHLORIDE 0.9% 100 ML IVPB ONE (18:39)
[2024-03-21] MEDS: bisacodyL 10 MG SUPP RECTAL PRN (20:06)
[2024-03-21 20:54] LABS: Glucose,Whole Blood 135 mg/dL (70-110)
[2024-03-22 06:20] LABS: Basophils % (A) 0 %; Eosinophils # (A) 0.1 k/uL (0-0.7); Eosinophils % (A) 1 %; HCT 26.6 % (34.0-46.0); HGB 8.8 gm/dL (11.4-16.0); Hypochromasia Slight; Lymphocytes # (A) 1.5 k/uL (1.0-4.8); Lymphocytes % (A) 13 %; MCH 30.4 pg (25.0-35.0); MCV 92.2 fL (80.0-100.0); Mean Platelet Volume 7.3; Monocytes # (A) 0.8 k/uL (0-1.0); Monocytes % (A) 6 %; Neutrophils # (A) 9.2 k/uL (1.3-7.7); Neutrophils % (A) 78 %; Platelet Count 345 k/uL (150-450); RBC 2.89 m/uL (3.80-5.40); RDW 15.5 % (11.5-15.5); WBC 11.9 k/uL (3.8-10.6)
[2024-03-22 06:28] LABS: Glucose,Whole Blood 110 mg/dL (70-110)
[2024-03-22 06:40] LABS: African American GFR (CKD) 81 (>60 ml/min/1.73 sqM); Anion Gap 8 mmol/L; Blood Urea Nitrogen 15 mg/dL (7-17); Calcium 8.2 mg/dL (8.4-10.2); Carbon Dioxide 28 mmol/L (22-30); Chloride 105 mmol/L (98-107); Glucose 123 mg/dL (74-99); Non-African American GFR(CKD) 70 (>60 ml/min/1.73 sqM); Potassium 3.7 mmol/L (3.5-5.1); Sodium 141 mmol/L (137-145)
--- NOTE | 2024-03-22 08:02 | XR ---
EXAMINATION TYPE: XR chest 2V DATE OF EXAM: 03/22/2024 5:42 AM COMPARISON: 03/11/2024 CLINICAL INDICATION: Female, 68 years old with history of post op CABG, TECHNIQUE: Frontal and lateral views of the chest are obtained. FINDINGS: Postop CABG changes. No evidence for pneumothorax. Interstitial prominence seen bilaterally could be chronic in nature. Hyperinflation compatible with COPD. IMPRESSION: Postoperative changes of CABG. [facility], , 03/22/2024 8:00 AM
--- NOTE | 2024-03-22 08:10 | P.PN ---
Subjective Progress Note Date: 03/22/24 The patient is a 68-year-old female patient with a past medical history significant for CAD status post CABG x 4 with MONZON to LAD and diagonal as well as radial artery to OM and SVG to PLV of the LCx as well as hypertension and dyslipidemia as well as multiple comorbid conditions was admitted in the [place] [facility] with acute coronary syndrome and subsequently she underwent a heart catheterization which revealed severe triple-vessel CAD and also an echo showed normal LV systolic function which she underwent CABG as described above. We CABG was complicated by atrial fibrillation and also anemia requiring blood transfusion March 21, 2024 The patient was seen and evaluated this morning which she is asymptomatic and hemodynamically stable. Her pressure remains elevated and consistent with stage II hypertension. I am going to start the patient on losartan. Please note that the patient does have 1 kidney and we are going to check with the nephrology team. Otherwise she reports no cardiovascular symptoms. The physical examination is remarkable for regular rhythm with a soft systolic murmur and clear breathing sounds bilaterally March 22, 2024 The patient was seen and evaluated this morning. She still hypertensive and the dose of losartan has increased earlier today which I would agree on. Urine output has been good. She has been maintaining normal sinus mechanism with a breakthrough episode of atrial fibrillation she was given a bolus of amiodarone which she is on amiodarone orally at this point. She is on dual antiplatelet therapy along with a statin. The chest x-ray was reviewed. The blood work was reviewed as well. Assessment CAD status post CABG Preserved LV systolic function Solitary kidney Paroxysmal atrial fibrillation Multiple comorbid conditions Plan Continue the current medical regimen Agree about increasing the dose of losartan Continue antiplatelet Monitor the kidney function and electrolytes and hemoglobin Follow-up with the patient Objective - Vital Signs Vital signs: Vital Signs Temp 98.1 F 03/22/24 04:00 Pulse 92 03/22/24 08:02 Resp 22 03/22/24 04:00 BP 136/54 03/22/24 04:00 Pulse Ox 94 L 03/22/24 04:00 FiO2 60 03/19/24 14:30 Intake & Output 03/21/24 03/22/24 03/22/24 18:59 06:59 18:59 Intake Total 300 640 Output Total 1300 200 Balance -1000 440 Weight 73.2 kg 72.4 kg Intake: IV 300 100 Dextrose 5% in Water 100 100 ml @ 618 mls/hr IV .Q10M PRN with Amiodarone 150 mg Rx#:[id number] Piperacillin-Tazobactam 3 100 100 .375 gm In Sodium Chloride 0.9% 100 ml @ 25 mls/hr IVPB Q8H [facility] Rx#: [id number] Sodium Ferric Gluconat- 100 Sucrose 125 mg In Sodium Chloride 0.9% 100 ml @ 100 mls/hr IVPB ONCE ONE Rx#:[id number] Oral 540 Output: Urine 1300 200 Other: Voiding Method Toilet Bedside Commode # Voids 1 1 # Bowel Movements 1 ABP, PAP, CO, CI - Last Documented Arterial Blood Pressure 158/49 Pulmonary Artery Pressure 32/19 Cardiac Output 5 Cardiac Index 2.8 - Labs CBC & Chem 7: 03/22/24 05:23 03/22/24 05:23 Labs: Abnormal Lab Results - Last 24 Hours (Table) 03/21/24 03/21/24 03/21/24 Range/Units 04:25 11:39 17:00 WBC (3.8-10.6) k/uL RBC (3.80-5.40) m/uL Hgb (11.4-16.0) gm/dL Hct (34.0-46.0) % Neutrophils # (1.3-7.7) k/uL Glucose (74-99) mg/dL POC Glucose (mg/dL) 114 H 165 H (70-110) mg/dL Calcium (8.4-10.2) mg/dL Iron 37 L (50-170) UG/DL TIBC 164 L (228-460) UG/DL Transferrin 117.0 L (204.0-354.0) mg/dL Ferritin 338.0 H (10.0-291.0) ng/mL 03/21/24 03/22/24 03/22/24 Range/Units 20:52 05:23 05:23 WBC 11.9 H (3.8-10.6) k/uL RBC 2.89 L (3.80-5.40) m/uL Hgb 8.8 L (11.4-16.0) gm/dL Hct 26.6 L (34.0-46.0) % Neutrophils # 9.2 H (1.3-7.7) k/uL Glucose 123 H (74-99) mg/dL POC Glucose (mg/dL) 135 H (70-110) mg/dL Calcium 8.2 L (8.4-10.2) mg/dL Iron (50-170) UG/DL TIBC (228-460) UG/DL Transferrin (204.0-354.0) mg/dL Ferritin (10.0-291.0) ng/mL Microbiology - Last 24 Hours (Table) 03/19/24 09:00 Gram Stain - Preliminary Bronchoalviolar Lavage - Right Bronchial Washings Culture - Preliminary
--- NOTE | 2024-03-22 08:10 | US ---
EXAMINATION TYPE: US renal artery duplex complet DATE OF EXAM: 03/22/2024 COMPARISON: NONE CLINICAL INDICATION: Female, 68 years old with history of edgar; left nephrectomy, history of right rosemary al stenosis TECHNIQUE: Grayscale, color Doppler and spectral Doppler imaging of the bilateral renal arteries and kidneys. FINDINGS: MEASUREMENTS: RENAL SIZE: Right Kidney: 11.5 x 5.6 x 5.5cm Left Kidney: surgically absent Right Kidney: No hydronephrosis or lesions seen Left Kidney: surgically absent Abd Aorta: obscured by bowel, saw small portion of distal RESISTANCE INDEX Right: 0.8 Left: surgically absent RA/AO RATIO (< 3.5 ) Right: 3.4 Left: surgically absent RENAL ARTERY VELOCITY ( < 180 cm/s) Right: 242 Left: surgically absent Project Executive Notes: Patient just had open heart, was wearing heart hugger, exam somewhat limited due to bowel gas Appropriate color Doppler flow and spectral waveforms to the kidneys bilaterally. IMPRESSION: No evidence for renal artery stenosis bilaterally. [facility], , 03/22/2024 8:08 AM
--- NOTE | 2024-03-22 08:41 | P.PN ---
Subjective Progress Note Date: 03/22/24 Principal diagnosis: Coronary artery disease, non-STEMI this admission, new onset atrial fibrillation. Past medical history significant for brain aneurysm with coiling in 2019 and stent in 2020, hypertension, hyperlipidemia, hypothyroid, asymptomatic left subclavian stenosis, left sided nephrectomy, right renal artery stenosis 60% on CTA in 2020, Mnire's disease, previous tobacco dependence, anxiety, family history of myocardial infarction in both her mother and her father POD#6 off-pump myocardial revascularization with coronary artery bypass grafting x 4 including free MONZON sequentially to diagonal and LAD, left radial artery graft to posterior lateral branch of the circumflex coronary artery, saphenous vein graft to the first obtuse marginal coronary artery. Endovascular vein harvest of the greater saphenous vein from the right lower extremity from mid calf to groin. Endovascular harvest of the left radial artery. Modified Morgan- Maze procedure with bilateral pulmonary vein ablation and ligation of the left atrial appendage with a 40 mm AtriCure clip Acute blood loss anemia and thrombocytopenia, somewhat expected given hemodilution. Right lower lobe collapse, status post day #1 bronchoscopy, airway examination, therapeutic lavage, BAL right lower lobe performed by Dr. Shepard. The patient was seen and examined in follow-up today March 22, 2024 at her bedside in the intensive care unit. She is currently laying in bed, is awake, alert, oriented x 3 and is in no acute apparent distress. The patient is currently undergoing an ultrasound renal artery duplex study at her bedside. The patient denies any complaints of pain, nausea or shortness of breath at this time. She states that this is the best she is felt since her surgery. Oxygen saturations are 94% on room air and she is achieving 2500 mL on her incentive spirometry with encouragement. Bedside telemetry is currently showing atrial fibrillation with a heart rate of 122 bpm. The patient is currently on metoprolol to tartrate 100 mg p.o. twice daily and amiodarone 400 mg p.o. twice daily. She remains hemodynamically stable and is currently on no inotropic or pressor support. Laboratory and chest x-ray results reviewed. The patient was started on losartan yesterday for blood pressure control, which was increased to 25 mg p.o. daily today. Discharge planning is in place, the patient is being evaluated for inpatient rehab. Objective - Vital Signs Vital signs: Vital Signs Temp 98.1 F 03/22/24 04:00 Pulse 74 03/22/24 08:13 Resp 22 03/22/24 04:00 BP 136/54 03/22/24 04:00 Pulse Ox 94 L 03/22/24 04:00 FiO2 60 03/19/24 14:30 Intake & Output 03/21/24 03/22/24 03/22/24 18:59 06:59 18:59 Intake Total 300 640 Output Total 1300 200 Balance -1000 440 Weight 73.2 kg 72.4 kg Intake: IV 300 100 Dextrose 5% in Water 100 100 ml @ 618 mls/hr IV .Q10M PRN with Amiodarone 150 mg Rx#:[id number] Piperacillin-Tazobactam 3 100 100 .375 gm In Sodium Chloride 0.9% 100 ml @ 25 mls/hr IVPB Q8H [facility] Rx#: [id number] Sodium Ferric Gluconat- 100 Sucrose 125 mg In Sodium Chloride 0.9% 100 ml @ 100 mls/hr IVPB ONCE ONE Rx#:[id number] Oral 540 Output: Urine 1300 200 Other: Voiding Method Toilet Bedside Commode # Voids 1 1 # Bowel Movements 1 ABP, PAP, CO, CI - Last Documented Arterial Blood Pressure 158/49 Pulmonary Artery Pressure 32/19 Cardiac Output 5 Cardiac Index 2.8 - Exam CONSTITUTIONAL: Appears comfortable, cooperative, no apparent acute distress. HEENT: Neck is supple, no JVD, no lymphadenopathy. RESPIRATORY: Lungs sounds essentially clear throughout, diminished to his bilateral bases, right greater than left. Respirations are symmetrical and nonlabored. Currently on room air with oxygen saturations 95%. Able to achieve 2500 mL on her incentive spirometry. Strong cough. CARDIOVASCULAR: Irregular rhythm and rate. S1 and S2 present, negative for S3, gallop or murmur. Sternum is stable. Palpable peripheral pulses bilaterally, trace edema to her bilateral lower extremities. No calf pain or tenderness noted. Heart hugger in place with patient demonstrating appropriate use. Knee- high BLESSING hose and sequential compression devices in place to her bilateral lower extremities. GASTROINTESTINAL: Abdomen soft, nontender, nondistended. Active bowel sounds present 4 quadrants. Tolerating her diet. Passing flatus. No guarding or r igidity. Bowel movement yesterday 03/21/2024. GENITOURINARY: Continues to void. INTEGUMENTARY: Skin is warm and dry with no evidence of clubbing or cyanosis. Midline sternal incision clean dry and well approximated, covered with dry intact dressing. Right lower extremity EVH sites well approximated without redness or drainage. Left arm radial artery harvest sites clean, dry and approximated. No drainage or redness is present. NEUROLOGIC: Cranial nerves II through XII intact. No focal deficits. MUSKULOSKELETAL: Able to move all extremities, strength equal bilaterally, generalized weakness. PSYCHIATRIC: Alert and oriented to person place and time, appropriate affect, intact judgment and insight. - Allied health notes Allied health notes reviewed: nursing - Labs CBC & Chem 7: 03/22/24 05:23 03/22/24 05:23 Labs: Abnormal Lab Results - Last 24 Hours (Table) 03/21/24 03/21/24 03/21/24 Range/Units 04:25 11:39 17:00 WBC (3.8-10.6) k/uL RBC (3.80-5.40) m/uL Hgb (11.4-16.0) gm/dL Hct (34.0-46.0) % Neutrophils # (1.3-7.7) k/uL Glucose (74-99) mg/dL POC Glucose (mg/dL) 114 H 165 H (70-110) mg/dL Calcium (8.4-10.2) mg/dL Iron 37 L (50-170) UG/DL TIBC 164 L (228-460) UG/DL Transferrin 117.0 L (204.0-354.0) mg/dL Ferritin 338.0 H (10.0-291.0) ng/mL 03/21/24 03/22/24 03/22/24 Range/Units 20:52 05:23 05:23 WBC 11.9 H (3.8-10.6) k/uL RBC 2.89 L (3.80-5.40) m/uL Hgb 8.8 L (11.4-16.0) gm/dL Hct 26.6 L (34.0-46.0) % Neutrophils # 9.2 H (1.3-7.7) k/uL Glucose 123 H (74-99) mg/dL POC Glucose (mg/dL) 135 H (70-110) mg/dL Calcium 8.2 L (8.4-10.2) mg/dL Iron (50-170) UG/DL TIBC (228-460) UG/DL Transferrin (204.0-354.0) mg/dL Ferritin (10.0-291.0) ng/mL Microbiology - Last 24 Hours (Table) 03/19/24 09:00 Gram Stain - Preliminary Bronchoalviolar Lavage - Right Bronchial Washings Culture - Preliminary - Imaging and Cardiology Chest x-ray: report reviewed, image reviewed Assessment and Plan Assessment: Coronary artery disease, non-STEMI this admission, status post four-vessel off- pump CABG New onset atrial fibrillation, brief episode, currently normal sinus rhythm, status post ligation of the left atrial appendage as well as modified Morgan-Maze Chest pain, secondary to above Right lower lobe collapse, status post bronchoscopy, airway examination, therapeutic lavage, BAL right lower lobe performed by Dr. Shepard 03/19/2024 History of brain aneurysm with coiling in 2018 and stent in 2019 Hypertension Hyperlipidemia, cholesterol 181, LDL 99 Hypothyroid, TSH 14.2, T4 1.23 Asymptomatic left subclavian stenosis, followed by vascular surgery History of left nephrectomy Right renal artery stenosis 60% on CTA in 2019 Mnire's disease Previous tobacco dependence, preoperative FEV1 99% of predicted Anxiety Family history of myocardial infarction in both her mother and her father Plan: Continue to maximize medical therapy with aspirin, statin, Plavix, and beta- kimo. Currently on metoprolol tartrate 100 mg p.o. twice daily with hold parameters. Continue amiodarone for atrial fibrillation prophylaxis. No anticoagulation at this time. Amiodarone 150 mg IV bolus was given this morning for an episode of atrial fibrillation, currently in normal sinus rhythm. Continue Norvasc for blood pressure and radial artery spasm prophylaxis. Bronchodilator management and recommendations per pulmonary/critical care services. Encourage incentive spirometry use 10 times every hour while awake. Continue Mucinex 1200 mg p.o. every 12 hours, and Mucomyst 200 mg nebulizer 3 times daily. Will monitor daily labs and chest x-rays, electrolyte replacement per protocol. Increase activity as tolerated, out of bed for all meals. PT/OT/cardiac rehab following. Pain control per current medication regimen, avoid Toradol due to history of left nephrectomy, oxycodone and fentanyl have been discontinued. Insulin management per internal medicine. Patient is not diabetic, preoperative hemoglobin A1c 5.4%. Daily weights, standing. Shower daily. Continue to monitor strict accurate intake and output. May bladder scan every 6 hours and as needed postvoid residual, if greater than 300 mL of urine may straight cath. Continue to follow cultures from bronchoscopy, currently on Zosyn for empiric IV antibiotic management. BAL bronc washing culture preliminary shows few polymorphonuclear leukocytes, rare epithelial cells, rare gram-positive cocci. Continue vitamin C and iron replacement, hemoglobin today 8.8. Transfer orders will be placed to the third floor cardiac stepdown unit. Transferred to 3 S. cardiac stepdown unit when bed available. Discharge planning is in place, the patient was evaluated for inpatient rehab yesterday 03/21/2024, insurance authorization pending. Increase losartan to 25 mg p.o. daily for blood pressure control and afterload reduction. No diuresis today. More recommendations to follow based on patient's clinical course. Time with Patient: Greater than 30
[2024-03-22] MEDS: POTASSIUM CHLORIDE ER 20 MEQ TAB.ER PO SCH (08:52)
[2024-03-22] MEDS: LOSARTAN 25 MG TAB PO SCH (08:54)
--- NOTE | 2024-03-22 09:57 | P.PN ---
Subjective Patient is seen in follow-up for chronic kidney disease. Renal function at baseline. Denies chest pain or shortness of breath. Vital signs are stable. General: No acute distress. HEENT: Head exam is unremarkable. On room air. LUNGS: No audible rhonchi or wheezes. HEART: Rate and Rhythm are regular. ABDOMEN: Nontender. EXTREMITITES: Trace edema. Objective - Vital Signs Vital signs: Vital Signs Temp 98.1 F 03/22/24 04:00 Pulse 74 03/22/24 08:13 Resp 22 03/22/24 04:00 BP 136/54 03/22/24 04:00 Pulse Ox 94 L 03/22/24 04:00 FiO2 60 03/19/24 14:30 Intake & Output 03/21/24 03/22/24 03/22/24 18:59 06:59 18:59 Intake Total 300 640 Output Total 1300 200 Balance -1000 440 Weight 73.2 kg 72.4 kg Intake: IV 300 100 Dextrose 5% in Water 100 100 ml @ 618 mls/hr IV .Q10M PRN with Amiodarone 150 mg Rx#:[id number] Piperacillin-Tazobactam 3 100 100 .375 gm In Sodium Chloride 0.9% 100 ml @ 25 mls/hr IVPB Q8H [facility] Rx#: [id number] Sodium Ferric Gluconat- 100 Sucrose 125 mg In Sodium Chloride 0.9% 100 ml @ 100 mls/hr IVPB ONCE ONE Rx#:[id number] Oral 540 Output: Urine 1300 200 Other: Voiding Method Toilet Bedside Commode # Voids 1 1 # Bowel Movements 1 ABP, PAP, CO, CI - Last Documented Arterial Blood Pressure 158/49 Pulmonary Artery Pressure 32/19 Cardiac Output 5 Cardiac Index 2.8 - Labs CBC & Chem 7: 03/22/24 05:23 03/22/24 05:23 Labs: Abnormal Lab Results - Last 24 Hours (Table) 03/21/24 03/21/24 03/21/24 Range/Units 04:25 11:39 17:00 WBC (3.8-10.6) k/uL RBC (3.80-5.40) m/uL Hgb (11.4-16.0) gm/dL Hct (34.0-46.0) % Neutrophils # (1.3-7.7) k/uL Glucose (74-99) mg/dL POC Glucose (mg/dL) 114 H 165 H (70-110) mg/dL Calcium (8.4-10.2) mg/dL Iron 37 L (50-170) UG/DL TIBC 164 L (228-460) UG/DL Transferrin 117.0 L (204.0-354.0) mg/dL Ferritin 338.0 H (10.0-291.0) ng/mL 03/21/24 03/22/24 03/22/24 Range/Units 20:52 05:23 05:23 WBC 11.9 H (3.8-10.6) k/uL RBC 2.89 L (3.80-5.40) m/uL Hgb 8.8 L (11.4-16.0) gm/dL Hct 26.6 L (34.0-46.0) % Neutrophils # 9.2 H (1.3-7.7) k/uL Glucose 123 H (74-99) mg/dL POC Glucose (mg/dL) 135 H (70-110) mg/dL Calcium 8.2 L (8.4-10.2) mg/dL Iron (50-170) UG/DL TIBC (228-460) UG/DL Transferrin (204.0-354.0) mg/dL Ferritin (10.0-291.0) ng/mL Microbiology - Last 24 Hours (Table) 03/19/24 09:00 Gram Stain - Preliminary Bronchoalviolar Lavage - Right Bronchial Washings Culture - Preliminary Assessment and Plan Plan: Assessment: 1. 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 2. Status post left nephrectomy. 3. Coronary artery disease status post CABG this admission. 4. Hypokalemia from diuresis. Replaced. 5. Hypertension with chronic kidney disease with history of renal artery stenosis in the right kidney. Blood pressure control prior to admission with 2 meds. No evidence of renal artery stenosis noted on renal artery duplex ultrasound done this admission. 6. Volume overload. Improved with diuresis. 7. Anemia. Postoperative blood loss. Mild iron deficiency noted. Status post IV iron given March 21, 2024. Plan: Add oral Lasix 20 mg once daily. Avoid nephrotoxins. Allergic to LEONCIO inhibitor.
[2024-03-22 11:10] LABS: Glucose,Whole Blood 119 mg/dL (70-110)
--- NOTE | 2024-03-22 11:10 | P.PN ---
Subjective Progress Note Date: 03/22/24 Hospital Course: 68-year-old female with PMH of CAD s/p CABG x 4 with MONZON to LAD, hypertension, dyslipidemia, CKD stage II, solitary kidney status post nephrectomy, who was admitted to the hospital with ACS and underwent heart cath that revealed severe triple-vessel CAD, normal LVEF function, patient underwent CABG that was complicated by acute blood loss anemia requiring blood transfusion. She also had right lower lobe collapse and underwent bronchoscopy with therapeutic lavage started on Zosyn for empiric coverage. Patient also had a brief episode of new onset A-fib, converted to sinus, status post left atrial appendage as well as modified Morgan-Maze. Patient is being followed for CKD by nephrology, renal duplex ordered and showed no renal artery stenosis, iron studies pending IPR is following, pending therapy evaluation, patient would be a good candidate for IPR and will require insurance authorization. Pertinent Imaging: Chest x-ray 03/22 with no significant changes Subjective: Patient was seen examined bedside, feels fatigued, up in the recliner, overall feels quite well, denied chest pain or discomfort today, denied shortness of breath Pertinent positives and negatives as discussed above, a complete review of systems was performed and all other systems are negative. Vitals Signs Reviewed. General: [nontoxic], [no distress], [appears at stated age] Derm: [warm], [dry] postop dressing clean and dry, no drainage/discharge Head: [atraumatic], [normocephalic], [symmetric] Eyes: [EOMI], [no lid lag], [anicteric sclera] Mouth: [no lip lesion], [mucus membranes moist] Cardiovascular: [S1S2 irregular], [no murmur] Lungs: [CTA bilateral], [no rhonchi, no rales] , [no accessory muscle use] Abdominal: [soft], [ nontender to palpation], [no guarding], [no appreciable organomegaly] Ext: [no gross muscle atrophy], [no edema], [no contractures] Neuro: [ CN II-XI grossly intact], [no focal neuro deficits] Psych: [Alert], [oriented], [appropriate affect] Data Reviewed Today: Pertinent Labs: Leukocytosis 11.3 increased to 11.9, hemoglobin improved to 8.8, sodium and potassium as well as chloride WNL, kidney function at baseline, glucose is well-controlled Assessment and Plan: CAD status post CABG -Continue dual antiplatelet, continue metoprolol 100 twice daily, losartan 25 daily, amlodipine 5 mg, amiodarone 400 mg twice daily, atorvastatin 40 -cardiac rehab following, pending insurance auth for inpatient rehab as well as PTOT notes CKD stage II, solitary kidney, status post left nephrectomy Hyperkalemia resolved -Nephrology following, added oral Lasix 20 daily -Losartan added by cardiology, dose increased to 25 daily -US renal duplex ordered, pending -Potassium wnl today New onset atrial fibrillation, brief episode, currently normal sinus rhythm, status post ligation of the left atrial appendage as well as modified Morgan-Maze -No anticoagulation at this time recommended -Continue amiodarone 400 twice daily, continue metoprolol, dose increased to 100 twice daily -Had an episode of A-fib with RVR 03/22, received bolus of amiodarone, continued on previous oral dose, cardiology following Right lower lobe collapse, status post bronchoscopy, airway examination, erapeutic lavage, BAL right lower lobe performed by Dr. Shepard 03/19/2024 Acute hypoxic respiratory failure possibly due to volume overload, resolved -Incentive spirometry, daily labs, chest x-ray -Phonology following -Follow-up final cultures, so far no particular organism identified, patient is afebrile, mild leukocytosis still present could be reactive, -Started on oral Lasix 20 daily by nephrology -Wean off oxygen as tolerated Acute blood loss anemia likely after CABG, combination of iron deficiency and anemia of chronic disease -Hemoglobin is stable above 8 -Iron is low 37, TIBC 164, ferritin 338,204 -Due to patient's significant history of coronary artery disease, will transfuse IV iron once, followed by oral supplementation Hypertension: Continue current treatment, losartan added by cardiology, dose increased to 25 daily, patient is allergic to LEONCIO 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 status post brain coiling followed by stenting DVT ppx: Subcu heparin per CT surgery Anticipated discharge place: Possible IPR, pending PT OT evaluation, pending insurance authorization Anticipated discharge time: 24 hours Objective - Vital Signs Vital signs: Vital Signs Temp 98.1 F 03/22/24 04:00 Pulse 74 03/22/24 08:13 Resp 22 03/22/24 04:00 BP 136/54 03/22/24 04:00 Pulse Ox 94 L 03/22/24 04:00 FiO2 60 03/19/24 14:30 Intake & Output 03/21/24 03/22/24 03/22/24 18:59 06:59 18:59 Intake Total 300 640 Output Total 1300 200 Balance -1000 440 Weight 73.2 kg 72.4 kg Intake: IV 300 100 Dextrose 5% in Water 100 100 ml @ 618 mls/hr IV .Q10M PRN with Amiodarone 150 mg Rx#:[id number] Piperacillin-Tazobactam 3 100 100 .375 gm In Sodium Chloride 0.9% 100 ml @ 25 mls/hr IVPB Q8H [facility] Rx#: [id number] Sodium Ferric Gluconat- 100 Sucrose 125 mg In Sodium Chloride 0.9% 100 ml @ 100 mls/hr IVPB ONCE ONE Rx#:[id number] Oral 540 Output: Urine 1300 200 Other: Voiding Method Toilet Bedside Commode # Voids 1 1 # Bowel Movements 1 ABP, PAP, CO, CI - Last Documented Arterial Blood Pressure 158/49 Pulmonary Artery Pressure 32/19 Cardiac Output 5 Cardiac Index 2.8 - Labs CBC & Chem 7: 03/22/24 05:23 03/22/24 05:23 Labs: Abnormal Lab Results - Last 24 Hours (Table) 03/21/24 03/21/24 03/21/24 Range/Units 04:25 11:39 17:00 WBC (3.8-10.6) k/uL RBC (3.80-5.40) m/uL Hgb (11.4-16.0) gm/dL Hct (34.0-46.0) % Neutrophils # (1.3-7.7) k/uL Glucose (74-99) mg/dL POC Glucose (mg/dL) 114 H 165 H (70-110) mg/dL Calcium (8.4-10.2) mg/dL Iron 37 L (50-170) UG/DL TIBC 164 L (228-460) UG/DL Transferrin 117.0 L (204.0-354.0) mg/dL Ferritin 338.0 H (10.0-291.0) ng/mL 03/21/24 03/22/24 03/22/24 Range/Units 20:52 05:23 05:23 WBC 11.9 H (3.8-10.6) k/uL RBC 2.89 L (3.80-5.40) m/uL Hgb 8.8 L (11.4-16.0) gm/dL Hct 26.6 L (34.0-46.0) % Neutrophils # 9.2 H (1.3-7.7) k/uL Glucose 123 H (74-99) mg/dL POC Glucose (mg/dL) 135 H (70-110) mg/dL Calcium 8.2 L (8.4-10.2) mg/dL Iron (50-170) UG/DL TIBC (228-460) UG/DL Transferrin (204.0-354.0) mg/dL Ferritin (10.0-291.0) ng/mL Microbiology - Last 24 Hours (Table) 03/19/24 09:00 Gram Stain - Final Bronchoalviolar Lavage - Right Bronchial Washings Culture - Final
--- NOTE | 2024-03-22 12:17 | P.PN ---
Subjective Progress Note Date: 03/22/24 Principal diagnosis: Critical Illness Myopathy S/P CABG x4 Ana Talavera is a 68 year old, right handed, , who lives in a single story manufactured home, with 4-5 STFD with HR. Prior to admission, pt was ambulating without an assistive device. Pt was independent for basic/advanced ADLs. Support system: son and neighbors. Pt was admitted on 03/09/24 for chest pain. She was found to have multivessel CAD, NSTEMI and new onset atrial fibrillation. She underwent coronary artery bypass grafting x 4 on 03/16/24. Coronary bypass included MONZON to LAD and diagonal and left radial artery graft to posterior lateral branch of the circumflex and SVG to OM1. Patient also had modified Morgan-Maze procedure and left atrial appendage closure. Records also indicate acute blood loss anemia, thrombocytopenia, hypokalemia and leukocytosis. Due to difficulty being weaned from BiPAP and right lower lobe lung collapse, patient underwent a bronchoscopy performed by Dr. Shepard on 03/19/24 for airway examination, therapeutic lavage and BAL right lower lobe. She is on Zosyn for empiric antibiotic coverage. PM&R was consulted for rehab recommendations post discharge. Therapy progress: BM supervision, Transfers Elsie, ambulation Elsie 150 feet, UB dress Elsie, LB dress modA 03/21/24: Patient seen and examined sitting in chair eating lunch. Patient denies CP, SOB and abdominal pain. Reports occasional palpitations, generalized body aches and decreased appetite. Denies any pain. Reports she was not previously on home oxygen prior to arrival, currently on 3L NC. 03/22/24: Patient seen and examined resting in chair. Patient denies CP, SOB and abdominal pain. Continues to report occasional palpitations and generalized body aches. Denies any pain. Currently on RA. Per staff, patient did receive two boluses of amiodarone today. Objective - Vital Signs Vital signs: Vital Signs Temp 98.1 F 03/22/24 04:00 Pulse 74 03/22/24 08:13 Resp 22 03/22/24 04:00 BP 136/54 03/22/24 04:00 Pulse Ox 94 L 03/22/24 04:00 FiO2 60 03/19/24 14:30 Intake & Output 03/21/24 03/22/24 03/22/24 18:59 06:59 18:59 Intake Total 300 640 Output Total 1300 200 Balance -1000 440 Weight 73.2 kg 72.4 kg Intake: IV 300 100 Dextrose 5% in Water 100 100 ml @ 618 mls/hr IV .Q10M PRN with Amiodarone 150 mg Rx#:[id number] Piperacillin-Tazobactam 3 100 100 .375 gm In Sodium Chloride 0.9% 100 ml @ 25 mls/hr IVPB Q8H [facility] Rx#: [id number] Sodium Ferric Gluconat- 100 Sucrose 125 mg In Sodium Chloride 0.9% 100 ml @ 100 mls/hr IVPB ONCE ONE Rx#:[id number] Oral 540 Output: Urine 1300 200 Other: Voiding Method Toilet Bedside Commode # Voids 1 1 # Bowel Movements 1 ABP, PAP, CO, CI - Last Documented Arterial Blood Pressure 158/49 Pulmonary Artery Pressure 32/19 Cardiac Output 5 Cardiac Index 2.8 - Exam General: Well-developed, well-nourished, female, in no acute distress, sitting in chair eating lunch HEENT: NC/AT, external ears intact, hearing intact to conversational speech Cardiovascular: B/L calves are supple, nontender, no cords, trace BLLE peripheral edema, engine monitor in place Respiratory: Even and unlabored breathing on RA Abdomen: Soft, nontender, nondistended Genitourinary: no suprapubic tenderness Musculoskeletal: ROM WFL EXCEPT: generalized weakness Neurological: Alert and conversational Speech is clear, fluent MMT: B/L UE EE/EE/HG - 5/5 B/L LE HF 4+/5; B/L LE KE/DF 5/5 Skin: Skin intact where visible to head, neck, and bilateral upper and lower extremities EXCEPT: midline chest incision and IV Psychiatric: Mood calm, affect appropriate, cooperative - Labs CBC & Chem 7: 03/22/24 05:23 03/22/24 05:23 Labs: Abnormal Lab Results - Last 24 Hours (Table) 03/21/24 03/21/24 03/21/24 Range/Units 04:25 11:39 17:00 WBC (3.8-10.6) k/uL RBC (3.80-5.40) m/uL Hgb (11.4-16.0) gm/dL Hct (34.0-46.0) % Neutrophils # (1.3-7.7) k/uL Glucose (74-99) mg/dL POC Glucose (mg/dL) 114 H 165 H (70-110) mg/dL Calcium (8.4-10.2) mg/dL Iron 37 L (50-170) UG/DL TIBC 164 L (228-460) UG/DL Transferrin 117.0 L (204.0-354.0) mg/dL Ferritin 338.0 H (10.0-291.0) ng/mL 03/21/24 03/22/24 03/22/24 Range/Units 20:52 05:23 05:23 WBC 11.9 H (3.8-10.6) k/uL RBC 2.89 L (3.80-5.40) m/uL Hgb 8.8 L (11.4-16.0) gm/dL Hct 26.6 L (34.0-46.0) % Neutrophils # 9.2 H (1.3-7.7) k/uL Glucose 123 H (74-99) mg/dL POC Glucose (mg/dL) 135 H (70-110) mg/dL Calcium 8.2 L (8.4-10.2) mg/dL Iron (50-170) UG/DL TIBC (228-460) UG/DL Transferrin (204.0-354.0) mg/dL Ferritin (10.0-291.0) ng/mL Microbiology - Last 24 Hours (Table) 03/19/24 09:00 Gram Stain - Final Bronchoalviolar Lavage - Right Bronchial Washings Culture - Final Assessment and Plan Assessment: #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 -Comprehensive therapies #NSTEMI/multivessel coronary artery disease S/P CABG x4 #Right lower lobe lung collapse/infiltrate with small right-sided pleural effusion S/P bronchoscopy -BAL results pending -On Zosyn for antibiotic coverage #Leukocytosis -03/21 - WBC 11.3 -03/22 - WBC 11.9 #Acute blood loss anemia -03/21 - HGB 8.1 -03/22 - HGB 8.8 #Hypokalemia -03/21 - Potassium 3.4 -03/22 - Potassium 3.7 #Acute hypoxic respiratory failure -S/P intubation/extubation, on o2 via NC, not previously on home o2 -03/22: currently on RA #New onset paroxysmal atrial fibrillation with RVR -No anticoagulation per primary team per records -Amiodarone and metoprolol per JUN -03/22: patient did require two bolus doses of amiodarone today per staff #Solitary Kidney #Anxiety -Ativan 0.5 mg QID PRN #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 # Diet -Per EMR # Skin/wound: Skin/Wound care to follow as needed -+Chest surgical incision # Pain Management -Tylenol 1,000 mg Q6H # DVT Prophylaxis: Defer to Ortho/IM management. -Heparin SQ per JUN # Comorbidities: HTN, hypothyroidism, hyperlipidemia, asymptomatic left subclavian artery stenosis, Mnire's disease, previous tobacco dependence # Your medical dx and mgt Goals: Modified Independent mobility and ADLS both basic and advanced; increased functional mobility/strength; increased balance, safety, endurance. Improvement in medical issues through your care. Barriers: Endurance, oxygen therapy, generalized weakness, fall risk Discharge recommendation: Patient is functioning below baseline level. Patient would benefit from structured inaptient rehab with 3 hours of therapy a day 6 to 7 days per week, as well as, close medical monitoring due to her complex medical history. Patient is pending medical clearance and insurance authorization. Thank you for this consultation. Patient seen and examined in collaboration with Flavia Love PA-C and Dr. Garcia .
[2024-03-22] MEDS: FUROSEMIDE 20 MG TAB PO SCH (12:57)
[2024-03-22] MEDS: POTASSIUM CHLORIDE ER 20 MEQ TAB.ER PO STA (12:57)
[2024-03-22 14:51] VITALS: BMI 25.7
--- NOTE | 2024-03-22 17:31 | P.PN ---
Subjective Progress Note Date: 03/22/24 Patient is a 68-year-old female with past medical history significant for brain aneurysm with previous coiling and stent, hypertension, hyperlipidemia, left subclavian stenosis, previous left-sided nephrectomy, hypothyroidism, Mnire's disease, generalized anxiety disorder, and former tobacco dependence. Patient denies any pre-existing lung disease. She does have significant smoking history, smoked 1 pack/day for over 30 years. Patient's primary care provider is marixa Orta out of Dr. Carranza's office. Patient presented to the emergency department back on March 09 with chest pain. Apparently, earlier that morning she was awoken with sudden onset substernal chest pain/tightness. She initially thought this was a anxiety attack as she does have a history of anxiety. No nausea, diaphoresis, shortness of breath. 30 minutes later, the feeling did not subside's, so she did call EMS. Patient did reportedly have a transient episode of A-fib RVR in route to the hospital. Patient was admitted with a diagnosis of non-ST elevation [place]. Heart catheterization performed 03/10/2024 demonstrating severe three-vessel coronary artery disease with significant disease involvment of the proximal LAD, demonstrating 60 to 70% , left circumflex artery with 70% stenosis. and 90% stenosis of a nondominant RCA. Follow-up echocardiogram preserved left ventricular ejection fraction of 55 to 60%. No significant valvular abnormalities reported. Cardiothoracic surgery was consulted, patient is scheduled for surgical revascularization tomorrow morning. We were consulted for preoperative pulmonary clearance ventilator management following the procedure. As stated above, patient has no diagnosed history of pre-existing lung disease. She does have significant smoking history over [id number]. Patient did have bedside spirometry which showed an FEV1 2.35 L or 99% of predicted. Chest CTA done on arrival did not show any evidence of pulmonary emboli. There was evidence of mild emphysematous changes. Biapical scarring. Few borderline mildly enlarged lymph nodes in the hilum measuring 1.2 cm. Otherwise no acute findings. Most recent CBC done yesterday with a WBC count 8.4, hemoglobin 14.1, hematocrit 43.2, platelets 251. aPTT currently therapeutic at 67.7. BMP from yesterday: Sodium 140, potassium 4.3, chloride 110, serum bicarb 21, BUN 22, creatinine 0.93, glucose 93. Patient is currently walking the halls on room air. She has no respiratory distress. No current chest pain. Does have normal saline infusing at 50 mL/h. Also, heparin is infusion per protocol. Surgery is scheduled for tomorrow morning. Progress note dated March 16, 2024. 68-year-old female seen in consultation yesterday. Please see the note above. The patient had a off-pump four-vessel bypass surgery done today by Dr. Conklin. Please refer to the operative note. The patient is currently on the ventilator. Ventilator settings include volume assist-control, rate 16, tidal volume 400, FiO2 50%, and PEEP of 5. Blood gases on same settings, with FiO2 of 100%, showed a pO2 of 300, pCO2 of 33, and a pH of 7.399. The patient is on nitroglycerin at 5 mcg/min, propofol at 40 mcg/kg/min, 0.9 at 50 cc an hour, and amiodarone per protocol. In addition, the patient be started on an insulin drip at 1.5 units an hour. The patient's cardiac output is 3.3, and the index is 1.9. Pulmonary artery pressures 27/13. Current labs include a white count 7.9, hemoglobin 8.2, hematocrit 23.7, and a platelet count of 111,000. Sodium 141, potassium 4, chlorides 117, CO2 20, BUN 16, creatinine 0.71. Glucose is 151. Chest x-ray reveals an endotracheal tube, which is 5 cm above the tracheal jaki. There is a left-sided chest tube present. There is a mediastinal tube in the midline. Nasogastric tube was also noted, as well as a [place]-Rae catheter. There are some bibasilar atelectasis, and a small right apical pneumothorax. Progress note dated March 17, 2024. 68-year-old female seen today in room 264. She is postop day #1, status post off-pump four-vessel bypass surgery. She is on volume assist-control, rate 14, tidal volume 400, FiO2 40%, PEEP of 5. Blood gases show pO2 of 138, pCO2 of 30, pH is 7.38. Repeat blood gases show pO2 of 98, pCO2 31, pH is 7.41. She is on pressure support of 5 and CPAP of 5. The patient can be extubated. Rapid shallow breathing index is 38. The patient is getting saline at 50 cc an hour, insulin at 2 units an hour, and amiodarone 0.5 mg/min. White count is 11, hemoglobin 8.7, hematocrit 25.2, platelet count normal. Sodium 139, potassium 3.3, chlorides 115, CO2 16, BUN 13, creatinine 0.75. Calcium is 7.9. Albumin is 3.4. Chest x-ray shows some postsurgical changes. Previous right apical pneumothorax is not seen. Progress note dated March 18, 2024. 68-year-old female seen today in room 264. She is postoperative day #2, status post off-pump four-vessel bypass grafting. The patient saturations were a bit low. We placed her on BiPAP, with settings of 12/6, and 60%. Patient is getting saline at 20 cc an hour. The patient blood gases showed a pO2 of 68, pCO2 of 28, and a pH of 7.40. This blood gas was consistent with a mixed acid- base disturbance, including a respiratory alkalosis, and metabolic acidosis. She has a nonanion gap hyperchloremic metabolic acidosis. The patient is getting saline at 20 cc an hour. An ultrasound of the right chest, reveals only small amounts of fluid. The patient received Lasix 20 mg IV push. Current laboratory data includes a white count 15.4, hemoglobin 8.6, hematocrit 24.8, and a platelet count of 152,000. Sodium 137, potassium 4.3, chlorides 112, CO2 18, BUN 16, creatinine 0.87. Glucose 117. Albumin 3.4. X-ray shows a right lower lobe infiltrate/effusion. Small left apical pneumothorax is seen. Progress note dated March 19, 2024. 68-year-old female seen today in room 264. The patient is postoperative day #3, status post off-pump four-vessel bypass surgery. Chest x-rays from yesterday, and this morning, reveal a partial right lower lobe collapse. The patient will undergo bronchoscopy today. The patient is on lactated Ringer's at 30 cc an hour. The patient continues on BiPAP, with settings of 12/5, and 60%. White count of 17.1, hemoglobin 7.8, hematocrit 22.6, and platelet count of 173,000. Blood gases today show pO2 of 78, pCO2 of 30, pH is 7.42. These blood gases are consistent with a mixed acid-base disturbance, including a respiratory alkalosis, and mild metabolic acidosis. Sodium 134, potassium 3.8, chlorides 108, CO2 18, anion gap 8, BUN 28, creatinine 0.99. Glucose 112. Albumin 3.4. Chest x-ray reveals either collapse, or infiltrate, in the right lower lobe, and a very small left apical pneumothorax. Progress note dated March 20, 2024. 60 room 264. She is postoperative day #4, status post [facility] The patient's chest x-ray has shown persistent infiltrate or collapse of the right lower lobe. Yesterday, we did bronchoscopy in the room, and the patient had significant purulent secretions in the right middle lobe but mostly in the right lower lobe. They were suctioned without difficulty. Specimens are sent to the laboratory for analysis. In addition, her procalcitonin level was elevated, and the patient was started on Zosyn empirically. Today she is doing a bit better. She is sitting in the chair next to her hospital bed. She is on 4 L of oxygen. She continues on Zosyn. She is getting lactated Ringer's at 20 cc an hour. White count is 14.7, hemoglobin 7.6, hematocrit 22.6, platelet count normal. Sodium 134, potassium 3.5, chlorides 109, CO2 22, BUN 25, creatinine 0.92. Glucose 134. Albumin is 3. His x-ray continues to show small pleural effusions, and bibasilar infiltrates, right greater than left. On 03/21/2024, the patient is postop day #5. She is calm and comfortable sitting up in a chair. She is using the incentive spirometer. No significant respiratory distress. She underwent a bronchoscopy and a bronchioloalveolar lavage of the right lower lobe. Cultures are still negative. Repeat chest x- ray still showing new consolidation right lung base along with bilateral pleural effusions slightly worse on the right. She is using the incentive spirometer, pulling approximately 2500 cc. Her cardiac rhythm is sinus. She is on no pressors. She is awake and alert and communicating. Sternum is stable clean and intact. She remains on IV Zosyn as a broad-spectrum antibiotic coverage. The blood work from today shows improvement in her white cell count which is currently down to 11.3 with a hemoglobin of 8.1 and a platelet count of 276. So dium is at 140, BUN is 18 with a creatinine of 0.8, electrolytes are all within normal limits. She is afebrile. Potassium level is being replaced. She remains on aspirin and Plavix. She is on amiodarone for A-fib prophylaxis for milligrams p.o. twice a day. She is still on metoprolol at a dose of 100 mg p.o. 3 times daily. She is on losartan 12.5 mg p.o. daily. No other significant events overnight. On 03/22/2024, the patient is doing very well. The patient is postop day #6 and this morning, the patient is awake and sitting up in a chair. She is calm and comfortable. Cardiac rhythm is sinus and the patient denies having any specific complaints. The patient had a follow-up chest x-ray showed interval clearing of the right lower lobe consolidation/effusion. Remains on IV Zosyn. Continues to use use the incentive spirometer and the patient is pulling approximately 2500 cc. She did encounter brief episodes of atrial fibrillation and currently she is back in normal sinus rhythm. She is maintained on metoprolol 100 mg twice a day and amiodarone 4 mg p.o. twice a day. The patient has been also started on losartan for blood pressure control and his dose was increased up to 25 mg p.o. daily. No nausea. No vomiting. No focal neurological deficits. WBC count 11.9 with a hemoglobin 8.8 and a platelet count of 345. BUN is 15 with a creatinine 0.8 and sodium is at 141. No other significant events overnight. The patient is ambulating. Objective - Vital Signs Vital signs: Vital Signs Temp 98.1 F 03/22/24 04:00 Pulse 74 03/22/24 08:13 Resp 22 03/22/24 04:00 BP 136/54 03/22/24 04:00 Pulse Ox 94 L 03/22/24 04:00 FiO2 60 03/19/24 14:30 Intake & Output 03/21/24 03/22/24 03/22/24 18:59 06:59 18:59 Intake Total 300 640 Output Total 1300 200 Balance -1000 440 Weight 73.2 kg 72.4 kg Intake: IV 300 100 Dextrose 5% in Water 100 100 ml @ 618 mls/hr IV .Q10M PRN with Amiodarone 150 mg Rx#:[id number] Piperacillin-Tazobactam 3 100 100 .375 gm In Sodium Chloride 0.9% 100 ml @ 25 mls/hr IVPB Q8H [facility] Rx#: [id number] Sodium Ferric Gluconat- 100 Sucrose 125 mg In Sodium Chloride 0.9% 100 ml @ 100 mls/hr IVPB ONCE ONE Rx#:[id number] Oral 540 Output: Urine 1300 200 Other: Voiding Method Toilet Bedside Commode # Voids 1 1 # Bowel Movements 1 ABP, PAP, CO, CI - Last Documented Arterial Blood Pressure 158/49 Pulmonary Artery Pressure 32/19 Cardiac Output 5 Cardiac Index 2.8 - Exam No acute distress, currently calm and comfortable on room air oxygen HEENT examination is grossly unremarkable. Neck supple. Full range of motion. No adenopathy thyromegaly or neck vein distention. Cardiovascular examination reveals regular rhythm rate. S1-S2 normal. No S3 or S4. No discernible murmur noted. Lungs reveal clear breath sounds. Breath sounds are equal bilaterally. No adventitious lung sounds including wheezes rhonchi or crackles. Abdomen soft bowel sounds. No masses. Extremities are intact. No cyanosis clubbing or edema. Skin is without rash or lesion. Neurologic examination is within normal range. No focal deficits. - Labs CBC & Chem 7: 03/22/24 05:23 03/22/24 05:23 Labs: Abnormal Lab Results - Last 24 Hours (Table) 03/21/24 03/21/24 03/21/24 Range/Units 04:25 11:39 17:00 WBC (3.8-10.6) k/uL RBC (3.80-5.40) m/uL Hgb (11.4-16.0) gm/dL Hct (34.0-46.0) % Neutrophils # (1.3-7.7) k/uL Glucose (74-99) mg/dL POC Glucose (mg/dL) 114 H 165 H (70-110) mg/dL Calcium (8.4-10.2) mg/dL Iron 37 L (50-170) UG/DL TIBC 164 L (228-460) UG/DL Transferrin 117.0 L (204.0-354.0) mg/dL Ferritin 338.0 H (10.0-291.0) ng/mL 03/21/24 03/22/24 03/22/24 Range/Units 20:52 05:23 05:23 WBC 11.9 H (3.8-10.6) k/uL RBC 2.89 L (3.80-5.40) m/uL Hgb 8.8 L (11.4-16.0) gm/dL Hct 26.6 L (34.0-46.0) % Neutrophils # 9.2 H (1.3-7.7) k/uL Glucose 123 H (74-99) mg/dL POC Glucose (mg/dL) 135 H (70-110) mg/dL Calcium 8.2 L (8.4-10.2) mg/dL Iron (50-170) UG/DL TIBC (228-460) UG/DL Transferrin (204.0-354.0) mg/dL Ferritin (10.0-291.0) ng/mL Microbiology - Last 24 Hours (Table) 03/19/24 09:00 Gram Stain - Final Bronchoalviolar Lavage - Right Bronchial Washings Culture - Final Assessment and Plan Plan: Postop day # 6, status post off-pump four-vessel bypass surgery. Postthoracotomy, currently on room air oxygen Right lower lobe collapse/infiltrate, right lower lobe, with small right-sided pleural effusion. The patient underwent a bronchoscopy, airway examination, therapeutic lavage, BAL to her right lower lobe on 03/19/[address] Shepard, secondary to right lower lobe collapse. She was started on Zosyn for antibiotic coverage and follow-up chest x-ray on 03/22/2024 shows interval clearing of the right lower lobe consolidation. Oxygenation is improved. The patient using incentive spirometer Multivessel coronary disease and the patient is status post acute non-ST segment elevation myocardial infarction. Paroxysmal onset atrial fibrillation, brief episode, currently normal sinus r hythm, status post ligation of the left atrial appendage as well as modified Morgan-Maze. The patient is currently on metoprolol and amiodarone. No anticoagulants for now. History of hypertension. History of hyperlipidemia. History of left subclavian stenosis. History of brain aneurysm, status post coiling 2018, and stenting, 2019. History of of left-sided nephrectomy Right renal artery stenosis 60% on CTA in 2019 History of Mnire's disease. Hypothyroidism. Generalized anxiety disorder. Former tobacco dependence. Plan: Clinically stable Oxygenation stable and the patient is on room air oxygen No significant respite distress at rest Using incentive spirometer White cell count is improving Continue IV Zosyn Chest x-ray shows clearing of the right lower lobe consolidation Hemodynamically stable Cardiac rhythm is sinus Continue combination of aspirin and Plavix Continue metoprolol 100 mg p.o. twice a day Losartan 25 mg p.o. daily Amlodipine 5 mg p.o. twice a day Amiodarone 400 mg p.o. twice a day Oral iron Thyroid hormone replacement Increase mobility and ambulation Monitor hemoglobin Will continue to follow
[2024-03-22 17:48] LABS: Glucose,Whole Blood 176 mg/dL (70-110)
[2024-03-22 20:32] LABS: Glucose,Whole Blood 131 mg/dL (70-110)
[2024-03-23 06:08] LABS: Glucose,Whole Blood 100 mg/dL (70-110)
[2024-03-23 07:40] LABS: Basophils % (A) 0 %; Eosinophils # (A) 0.3 k/uL (0-0.7); Eosinophils % (A) 2 %; HCT 27.3 % (34.0-46.0); HGB 9.1 gm/dL (11.4-16.0); Hypochromasia Slight; Lymphocytes # (A) 2.3 k/uL (1.0-4.8); Lymphocytes % (A) 16 %; MCH 30.8 pg (25.0-35.0); MCHC 33.4 g/dL (31.0-37.0); MCV 92.2 fL (80.0-100.0); Mean Platelet Volume 7.7; Monocytes # (A) 0.9 k/uL (0-1.0); Monocytes % (A) 6 %; Neutrophils # (A) 10.4 k/uL (1.3-7.7); Neutrophils % (A) 74 %; Platelet Count 396 k/uL (150-450); RBC 2.96 m/uL (3.80-5.40); RDW 15.7 % (11.5-15.5); WBC 14.1 k/uL (3.8-10.6)
--- NOTE | 2024-03-23 07:41 | XR ---
EXAMINATION TYPE: XR chest 2V DATE OF EXAM: 03/23/2024 7:09 AM COMPARISON: 03/22/2024 CLINICAL INDICATION: Female, 68 years old with history of post op CABG, TECHNIQUE: Frontal and lateral views of the chest are obtained. FINDINGS: Operative changes of CABG. Minimal blunting of the costophrenic angles. There is no focal a ir space opacity, pleural effusion, or pneumothorax seen. The cardiac silhouette size is within norm al limits. The osseous structures are intact. IMPRESSION: No acute cardiopulmonary process. [facility], , 03/23/2024 7:39 AM
[2024-03-23 07:55] LABS: African American GFR (CKD) 74 (>60 ml/min/1.73 sqM); Anion Gap 3 mmol/L; Blood Urea Nitrogen 12 mg/dL (7-17); Calcium 8.5 mg/dL (8.4-10.2); Carbon Dioxide 27 mmol/L (22-30); Chloride 108 mmol/L (98-107); Glucose 95 mg/dL (74-99); Non-African American GFR(CKD) 64 (>60 ml/min/1.73 sqM); Potassium 3.5 mmol/L (3.5-5.1); Sodium 138 mmol/L (137-145)
--- NOTE | 2024-03-23 10:19 | P.PN ---
Subjective Progress Note Date: 03/23/24 Principal diagnosis: Coronary artery disease, non-STEMI this admission, new onset atrial fibrillation. History of brain aneurysm with coiling in 2019 and stent in 2020, hypertension, hyperlipidemia, hypothyroid, asymptomatic left subclavian stenosis, left sided nephrectomy, right renal artery stenosis 60% on CTA in 2020, Mnire's disease, previous tobacco dependence, anxiety, family history of myocardial infarction in both her mother and her father POD#7 off-pump myocardial revascularization with coronary artery bypass grafting x 4 including free MONZON sequentially to diagonal and LAD, left radial artery graft to posterior lateral branch of the circumflex coronary artery, saphenous vein graft to the first obtuse marginal coronary artery. Endovascular vein harvest of the greater saphenous vein from the right lower extremity from mid calf to groin. Endovascular harvest of the left radial artery. Modified Morgan- Maze procedure with bilateral pulmonary vein ablation and ligation of the left atrial appendage with a 40 mm AtriCure clip Acute blood loss anemia and thrombocytopenia, somewhat expected given hemodilution Right lower lobe collapse, status post day #4 bronchoscopy, airway examination, therapeutic lavage, BAL right lower lobe performed by Dr. Shepard The patient was seen and examined this morning with Dr. Conklin sitting up in recliner on the cardiac stepdown unit in no acute distress. Currently in sinus rhythm, hemodynamically stable. Remains on room air with oxygen saturation in the mid 90s. She has been ambulatory in the hallway with assistance, showering daily. States pain is controlled on current medication regimen. Labs, chest x- ray reviewed. Microbiology for BAL negative. Awaiting insurance authorization for rehab at discharge. No other new concerns. Objective - Vital Signs Vital signs: Vital Signs Temp 98.2 F 03/23/24 07:31 Pulse 76 03/23/24 07:31 Resp 16 03/23/24 07:31 BP 171/77 03/23/24 07:31 Pulse Ox 99 03/23/24 07:31 FiO2 60 03/19/24 14:30 Intake & Output 03/22/24 03/23/24 03/23/24 18:59 06:59 18:59 Intake Total 710 100 118 Balance 710 100 118 Weight 72.4 kg 72.2 kg Intake: IV 10 100 Invasive Line 7 10 Piperacillin-Tazobactam 3 100 .375 gm In Sodium Chloride 0.9% 100 ml @ 25 mls/hr IVPB Q8H [facility] Rx#: [id number] Oral 700 118 Other: Voiding Method Toilet Toilet Toilet # Voids 4 3 # Bowel Movements 1 ABP, PAP, CO, CI - Last Documented Arterial Blood Pressure 158/49 Pulmonary Artery Pressure 32/19 Cardiac Output 5 Cardiac Index 2.8 - Exam CONSTITUTIONAL: Appears comfortable, cooperative, no acute distress RESPIRATORY: Lungs sounds diminished bilaterally. Respirations even, nonlabored. Currently on room air with oxygen saturation 94%. Able to achieve 1500 mL on incentive spirometry. Strong cough. CARDIOVASCULAR: S1, S2 present. Regular rate and rhythm, sinus rhythm on telemetry. Sternum stable. Palpable peripheral pulses bilaterally. Bilateral lower extremity edema present. No calf pain or tenderness noted. Heart hugger in place with patient demonstrating appropriate use. Antiembolism stockings, SCDs present. GASTROINTESTINAL: Abdomen soft, nontender, nondistended. Active bowel sounds present 4 quadrants. Tolerating diet. Positive bowel movement 03/22 GENITOURINARY: Continues to void although not being measured INTEGUMENTARY: Skin is warm and dry with evidence of good perfusion. Anterior chest incision well approximated. Left radial artery and right lower extremity EVH site well approximated without redness or drainage. NEUROLOGIC: Cranial nerves II through XII intact MUSKULOSKELETAL: Able to move all extremities, strength equal bilaterally, gait normal PSYCHIATRIC: Alert and oriented to person place and time, appropriate affect, intact judgment and insight - Allied health notes Allied health notes reviewed: nursing - Labs CBC & Chem 7: 03/23/24 07:23 03/23/24 07:23 Labs: Abnormal Lab Results - Last 24 Hours (Table) 03/22/24 03/22/24 03/22/24 Range/Units 11:09 17:46 20:31 WBC (3.8-10.6) k/uL RBC (3.80-5.40) m/uL Hgb (11.4-16.0) gm/dL Hct (34.0-46.0) % RDW (11.5-15.5) % Neutrophils # (1.3-7.7) k/uL Chloride (98-107) mmol/L POC Glucose (mg/dL) 119 H 176 H 131 H (70-110) mg/dL 03/23/24 03/23/24 Range/Units 07:23 07:23 WBC 14.1 H (3.8-10.6) k/uL RBC 2.96 L (3.80-5.40) m/uL Hgb 9.1 L (11.4-16.0) gm/dL Hct 27.3 L (34.0-46.0) % RDW 15.7 H (11.5-15.5) % Neutrophils # 10.4 H (1.3-7.7) k/uL Chloride 108 H (98-107) mmol/L POC Glucose (mg/dL) (70-110) mg/dL Microbiology - Last 24 Hours (Table) 03/19/24 09:00 Gram Stain - Final Bronchoalviolar Lavage - Right Bronchial Washings Culture - Final - Imaging and Cardiology Chest x-ray: report reviewed, image reviewed Assessment and Plan Assessment: Coronary artery disease, non-STEMI this admission, status post four-vessel off- pump CABG New onset atrial fibrillation, brief episode, currently sinus, status post ligation of the left atrial appendage as well as modified Morgan-Maze Chest pain, secondary to above Right lower lobe collapse, status post bronchoscopy, airway examination, therapeutic lavage, BAL right lower lobe performed by Dr. Shepard History of brain aneurysm with coiling in 2019 and stent in 2020 Hypertension Hyperlipidemia, cholesterol 181, LDL 99 Hypothyroid, TSH 14.2, T4 1.23 Asymptomatic left subclavian stenosis Left sided nephrectomy Right renal artery stenosis 60% on CTA in 2019 Mnire's disease Previous tobacco dependence, preoperative FEV1 99% of predicted Anxiety Family history of myocardial infarction in both her mother and her father Plan: Continue to maximize medical therapy with aspirin, statin, Plavix, beta-kimo therapy. Will increase beta-kimo therapy as tolerated Continue amiodarone for A-fib prophylaxis, will taper weekly. No anti coagulation necessary Continue norvasc for blood pressure and radial artery spasm prophylaxis, anusha nue Cozaar for afterload reduction, increased to 50 mg daily today Encourage incentive spirometry use 10 times every hour while awake. Bronchodilators per pulmonology Increase activity, ambulate as tolerated, PT/OT/cardiac rehab following Will monitor daily labs and x-rays, electrolyte replacement per protocol GI/DVT prophylaxis Pain control per current medication regimen, avoid Toradol due to nephrectomy Insulin management per internal medicine. Patient is not diabetic, preoperative hemoglobin A1c 5.4% Continue to monitor and record strict accurate intake and output Shower daily Will discontinue antibiotics when patient discharge from hospital Discharge planning in progress, once insurance authorization obtained for rehab patient will be discharged More recommendations to follow as patient progresses
[2024-03-23 11:18] LABS: Glucose,Whole Blood 105 mg/dL (70-110)
--- NOTE | 2024-03-23 11:30 | P.PN ---
Subjective Patient is seen in follow-up for chronic kidney disease. Renal function at baseline. Denies chest pain or shortness of breath. Vital signs are stable. General: No acute distress. HEENT: Head exam is unremarkable. On room air. LUNGS: No audible rhonchi or wheezes. HEART: Rate and Rhythm are regular. ABDOMEN: Nontender. EXTREMITITES: Trace edema. Objective - Vital Signs Vital signs: Vital Signs Temp 98.2 F 03/23/24 07:31 Pulse 76 03/23/24 07:31 Resp 16 03/23/24 07:31 BP 171/77 03/23/24 07:31 Pulse Ox 99 03/23/24 07:31 FiO2 60 03/19/24 14:30 Intake & Output 03/22/24 03/23/24 03/23/24 18:59 06:59 18:59 Intake Total 710 100 118 Balance 710 100 118 Weight 72.4 kg 72.2 kg Intake: IV 10 100 Invasive Line 7 10 Piperacillin-Tazobactam 3 100 .375 gm In Sodium Chloride 0.9% 100 ml @ 25 mls/hr IVPB Q8H [facility] Rx#: [id number] Oral 700 118 Other: Voiding Method Toilet Toilet Toilet # Voids 4 3 # Bowel Movements 1 ABP, PAP, CO, CI - Last Documented Arterial Blood Pressure 158/49 Pulmonary Artery Pressure 32/19 Cardiac Output 5 Cardiac Index 2.8 - Labs CBC & Chem 7: 03/23/24 07:23 03/23/24 07:23 Labs: Abnormal Lab Results - Last 24 Hours (Table) 03/22/24 03/22/24 03/23/24 Range/Units 17:46 20:31 07:23 WBC 14.1 H (3.8-10.6) k/uL RBC 2.96 L (3.80-5.40) m/uL Hgb 9.1 L (11.4-16.0) gm/dL Hct 27.3 L (34.0-46.0) % RDW 15.7 H (11.5-15.5) % Neutrophils # 10.4 H (1.3-7.7) k/uL Chloride (98-107) mmol/L POC Glucose (mg/dL) 176 H 131 H (70-110) mg/dL 03/23/24 Range/Units 07:23 WBC (3.8-10.6) k/uL RBC (3.80-5.40) m/uL Hgb (11.4-16.0) gm/dL Hct (34.0-46.0) % RDW (11.5-15.5) % Neutrophils # (1.3-7.7) k/uL Chloride 108 H (98-107) mmol/L POC Glucose (mg/dL) (70-110) mg/dL Microbiology - Last 24 Hours (Table) 03/19/24 09:00 Gram Stain - Final Bronchoalviolar Lavage - Right Bronchial Washings Culture - Final Assessment and Plan Plan: Assessment: 1. 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 2. Status post left nephrectomy. 3. Coronary artery disease status post CABG this admission. 4. Hypokalemia from diuresis. Replaced. 5. Hypertension with chronic kidney disease with history of renal artery stenosis in the right kidney. Blood pressure controlled prior to admission with 2 meds. No evidence of renal artery stenosis noted on renal artery duplex ultrasound done this admission. 6. Volume overload. Improved with diuresis. 7. Anemia. Postoperative blood loss. Mild iron deficiency noted. Status post IV iron given March 21, 2024. Plan: Dose of losartan increased. Avoid nephrotoxins. Allergic to LEONCIO inhibitor.
[2024-03-23] MEDS ORDERED: DEXTROSE 50% SYRINGE 50 ML IVP PRN ×2 (11:44)
[2024-03-23] MEDS: POTASSIUM CHLORIDE ER 20 MEQ TAB.ER PO STA (11:51)
[2024-03-23] MEDS: LOSARTAN 50 MG TAB PO SCH (11:52)
[2024-03-23] MEDS: INSULIN ASPART (NovoLOG) 100 UNIT/ML VIAL SQ SCH (12:03)
--- NOTE | 2024-03-23 13:37 | P.PN ---
Subjective Progress Note Date: 03/23/24 The patient is a 68-year-old female patient with a past medical history significant for CAD status post CABG x 4 with MONZON to LAD and diagonal as well as radial artery to OM and SVG to PLV of the LCx as well as hypertension and dyslipidemia as well as multiple comorbid conditions was admitted in the [facility] with acute coronary syndrome and subsequently she underwent a heart catheterization which revealed severe triple-vessel CAD and also an echo showed normal LV systolic function which she underwent CABG as described above. We CABG was complicated by atrial fibrillation and also anemia requiring blood transfusion March 21, 2024 The patient was seen and evaluated this morning which she is asymptomatic and hemodynamically stable. Her pressure remains elevated and consistent with stage II hypertension. I am going to start the patient on losartan. Please note that the patient does have 1 kidney and we are going to check with the nephrology team. Otherwise she reports no cardiovascular symptoms. The physical examination is remarkable for regular rhythm with a soft systolic murmur and clear breathing sounds bilaterally March 22, 2024 The patient was seen and evaluated this morning. She still hypertensive and the dose of losartan has increased earlier today which I would agree on. Urine output has been good. She has been maintaining normal sinus mechanism with a breakthrough episode of atrial fibrillation she was given a bolus of amiodarone which she is on amiodarone orally at this point. She is on dual antiplatelet therapy along with a statin. The chest x-ray was reviewed. The blood work was reviewed as well. March 23, 2024 Patient seen and examined on the cardiac stepdown unit. Patient has been transferred out of the intensive care unit. She is scheduled to go to rehab today. She states her chest is a little bit sore. Blood pressure readings were high this morning patient was started on losartan by CTS. Heart rate is in the 70s, pulse ox 99% on room air. Repeat blood work reveals WBC 14.1, hemoglobin 9.1, creatinine 0.92. The physical examination is remarkable for regular rhythm with a soft systolic murmur and clear breathing sounds bilaterally Assessment CAD status post CABG Preserved LV systolic function Solitary kidney Paroxysmal atrial fibrillation Multiple comorbid conditions Plan Continue the current medical regimen Agree about increasing the dose of losartan Continue antiplatelet Monitor the kidney function and electrolytes and hemoglobin Follow-up with the patient. Patient is scheduled for discharge to rehab today. Nurse practitioner note has been reviewed, I agree with documented findings and plan of care. Patient was seen and examined. Objective - Vital Signs Vital signs: Vital Signs Temp 98.2 F 03/23/24 07:31 Pulse 76 03/23/24 07:31 Resp 16 03/23/24 07:31 BP 171/77 03/23/24 07:31 Pulse Ox 99 03/23/24 07:31 FiO2 60 03/19/24 14:30 Intake & Output 03/22/24 03/23/24 03/23/24 18:59 06:59 18:59 Intake Total 710 100 118 Balance 710 100 118 Weight 72.4 kg 72.2 kg Intake: IV 10 100 Invasive Line 7 10 Piperacillin-Tazobactam 3 100 .375 gm In Sodium Chloride 0.9% 100 ml @ 25 mls/hr IVPB Q8H [facility] Rx#: [id number] Oral 700 118 Other: Voiding Method Toilet Toilet Toilet # Voids 4 3 # Bowel Movements 1 ABP, PAP, CO, CI - Last Documented Arterial Blood Pressure 158/49 Pulmonary Artery Pressure 32/19 Cardiac Output 5 Cardiac Index 2.8 - Labs CBC & Chem 7: 03/23/24 07:23 03/23/24 07:23 Labs: Abnormal Lab Results - Last 24 Hours (Table) 03/22/24 03/22/24 03/23/24 Range/Units 17:46 20:31 07:23 WBC 14.1 H (3.8-10.6) k/uL RBC 2.96 L (3.80-5.40) m/uL Hgb 9.1 L (11.4-16.0) gm/dL Hct 27.3 L (34.0-46.0) % RDW 15.7 H (11.5-15.5) % Neutrophils # 10.4 H (1.3-7.7) k/uL Chloride (98-107) mmol/L POC Glucose (mg/dL) 176 H 131 H (70-110) mg/dL 03/23/24 Range/Units 07:23 WBC (3.8-10.6) k/uL RBC (3.80-5.40) m/uL Hgb (11.4-16.0) gm/dL Hct (34.0-46.0) % RDW (11.5-15.5) % Neutrophils # (1.3-7.7) k/uL Chloride 108 H (98-107) mmol/L POC Glucose (mg/dL) (70-110) mg/dL Microbiology - Last 24 Hours (Table) 03/19/24 09:00 Gram Stain - Final Bronchoalviolar Lavage - Right Bronchial Washings Culture - Final
--- NOTE | 2024-03-23 16:22 | P.PN ---
Subjective Progress Note Date: 03/23/24 Patient is a 68-year-old female with past medical history significant for brain aneurysm with previous coiling and stent, hypertension, hyperlipidemia, left subclavian stenosis, previous left-sided nephrectomy, hypothyroidism, Mnire's disease, generalized anxiety disorder, and former tobacco dependence. Patient denies any pre-existing lung disease. She does have significant smoking history, smoked 1 pack/day for over 30 years. Patient's primary care provider is marixa Orta out of Dr. Carranza's office. Patient presented to the emergency department back on March 09 with chest pain. Apparently, earlier that morning she was awoken with sudden onset substernal chest pain/tightness. She initially thought this was a anxiety attack as she does have a history of anxiety. No nausea, diaphoresis, shortness of breath. 30 minutes later, the feeling did not subside's, so she did call EMS. Patient did reportedly have a transient episode of A-fib RVR in route to the hospital. Patient was admitted with a diagnosis of non-ST elevation [facility]. Heart catheterization performed 03/10/2024 demonstrating severe three-vessel coronary artery disease with significant disease involvment of the proximal LAD, demonstrating 60 to 70% , left circumflex artery with 70% stenosis. and 90% stenosis of a nondominant RCA. Follow-up echocardiogram preserved left ventricular ejection fraction of 55 to 60%. No significant valvular abnormalities reported. Cardiothoracic surgery was consulted, patient is scheduled for surgical revascularization tomorrow morning. We were consulted for preoperative pulmonary clearance ventilator management following the procedure. As stated above, patient has no diagnosed history of pre-existing lung disease. She does have significant smoking history over [id number]. Patient did have bedside spirometry which showed an FEV1 2.35 L or 99% of predicted. Chest CTA done on arrival did not show any evidence of pulmonary emboli. There was evidence of mild emphysematous changes. Biapical scarring. Few borderline mildly enlarged lymph nodes in the hilum measuring 1.2 cm. Otherwise no acute findings. Most recent CBC done yesterday with a WBC count 8.4, hemoglobin 14.1, hematocrit 43.2, platelets 251. aPTT currently therapeutic at 67.7. BMP from yesterday: Sodium 140, potassium 4.3, chloride 110, serum bicarb 21, BUN 22, creatinine 0.93, glucose 93. Patient is currently walking the halls on room air. She has no respiratory distress. No current chest pain. Does have normal saline infusing at 50 mL/h. Also, heparin is infusion per protocol. Surgery is scheduled for tomorrow morning. Progress note dated March 16, 2024. 68-year-old female seen in consultation yesterday. Please see the note above. The patient had a off-pump four-vessel bypass surgery done today by Dr. Conklin. Please refer to the operative note. The patient is currently on the ventilator. Ventilator settings include volume assist-control, rate 16, tidal volume 400, FiO2 50%, and PEEP of 5. Blood gases on same settings, with FiO2 of 100%, showed a pO2 of 300, pCO2 of 33, and a pH of 7.399. The patient is on nitroglycerin at 5 mcg/min, propofol at 40 mcg/kg/min, 0.9 at 50 cc an hour, and amiodarone per protocol. In addition, the patient be started on an insulin drip at 1.5 units an hour. The patient's cardiac output is 3.3, and the index is 1.9. Pulmonary artery pressures 27/13. Current labs include a white count 7.9, hemoglobin 8.2, hematocrit 23.7, and a platelet count of 111,000. Sodium 141, potassium 4, chlorides 117, CO2 20, BUN 16, creatinine 0.71. Glucose is 151. Chest x-ray reveals an endotracheal tube, which is 5 cm above the tracheal jaki. There is a left-sided chest tube present. There is a mediastinal tube in the midline. Nasogastric tube was also noted, as well as a Cheriton-Rae catheter. There are some bibasilar atelectasis, and a small right apical pneumothorax. Progress note dated March 17, 2024. 68-year-old female seen today in room 264. She is postop day #1, status post off-pump four-vessel bypass surgery. She is on volume assist-control, rate 14, tidal volume 400, FiO2 40%, PEEP of 5. Blood gases show pO2 of 138, pCO2 of 30, pH is 7.38. Repeat blood gases show pO2 of 98, pCO2 31, pH is 7.41. She is on pressure support of 5 and CPAP of 5. The patient can be extubated. Rapid shallow breathing index is 38. The patient is getting saline at 50 cc an hour, insulin at 2 units an hour, and amiodarone 0.5 mg/min. White count is 11, hemoglobin 8.7, hematocrit 25.2, platelet count normal. Sodium 139, potassium 3.3, chlorides 115, CO2 16, BUN 13, creatinine 0.75. Calcium is 7.9. Albumin is 3.4. Chest x-ray shows some postsurgical changes. Previous right apical pneumothorax is not seen. Progress note dated March 18, 2024. 68-year-old female seen today in room 264. She is postoperative day #2, status post off-pump four-vessel bypass grafting. The patient saturations were a bit low. We placed her on BiPAP, with settings of 12/6, and 60%. Patient is getting saline at 20 cc an hour. The patient blood gases showed a pO2 of 68, pCO2 of 28, and a pH of 7.40. This blood gas was consistent with a mixed acid- base disturbance, including a respiratory alkalosis, and metabolic acidosis. She has a nonanion gap hyperchloremic metabolic acidosis. The patient is getting saline at 20 cc an hour. An ultrasound of the right chest, reveals only small amounts of fluid. The patient received Lasix 20 mg IV push. Current laboratory data includes a white count 15.4, hemoglobin 8.6, hematocrit 24.8, and a platelet count of 152,000. Sodium 137, potassium 4.3, chlorides 112, CO2 18, BUN 16, creatinine 0.87. Glucose 117. Albumin 3.4. X-ray shows a right lower lobe infiltrate/effusion. Small left apical pneumothorax is seen. Progress note dated March 19, 2024. 68-year-old female seen today in room 264. The patient is postoperative day #3, status post off-pump four-vessel bypass surgery. Chest x-rays from yesterday, and this morning, reveal a partial right lower lobe collapse. The patient will undergo bronchoscopy today. The patient is on lactated Ringer's at 30 cc an hour. The patient continues on BiPAP, with settings of 12/5, and 60%. White count of 17.1, hemoglobin 7.8, hematocrit 22.6, and platelet count of 173,000. Blood gases today show pO2 of 78, pCO2 of 30, pH is 7.42. These blood gases are consistent with a mixed acid-base disturbance, including a respiratory alkalosis, and mild metabolic acidosis. Sodium 134, potassium 3.8, chlorides 108, CO2 18, anion gap 8, BUN 28, creatinine 0.99. Glucose 112. Albumin 3.4. Chest x-ray reveals either collapse, or infiltrate, in the right lower lobe, and a very small left apical pneumothorax. Progress note dated March 20, 2024. 60 room 264. She is postoperative day #4, status post off-pump four-vessel [facility]. The patient's chest x-ray has shown persistent infiltrate or collapse of the right lower lobe. Yesterday, we did bronchoscopy in the room, and the patient had significant purulent secretions in the right middle lobe but mostly in the right lower lobe. They were suctioned without difficulty. Specimens are sent to the laboratory for analysis. In addition, her procalcitonin level was elevated, and the patient was started on Zosyn empirically. Today she is doing a bit better. She is sitting in the chair next to her hospital bed. She is on 4 L of oxygen. She continues on Zosyn. She is getting lactated Ringer's at 20 cc an hour. White count is 14.7, hemoglobin 7.6, hematocrit 22.6, platelet count normal. Sodium 134, potassium 3.5, chlorides 109, CO2 22, BUN 25, creatinine 0.92. Glucose 134. Albumin is 3. His x-ray continues to show small pleural effusions, and bibasilar infiltrates, right greater than left. On 03/21/2024, the patient is postop day #5. She is calm and comfortable sitting up in a chair. She is using the incentive spirometer. No significant respiratory distress. She underwent a bronchoscopy and a bronchioloalveolar lavage of the right lower lobe. Cultures are still negative. Repeat chest x- ray still showing new consolidation right lung base along with bilateral pleural effusions slightly worse on the right. She is using the incentive spirometer, pulling approximately 2500 cc. Her cardiac rhythm is sinus. She is on no pressors. She is awake and alert and communicating. Sternum is stable clean and intact. She remains on IV Zosyn as a broad-spectrum antibiotic coverage. The blood work from today shows improvement in her white cell count which is currently down to 11.3 with a hemoglobin of 8.1 and a platelet count of 276. So dium is at 140, BUN is 18 with a creatinine of 0.8, electrolytes are all within normal limits. She is afebrile. Potassium level is being replaced. She remains on aspirin and Plavix. She is on amiodarone for A-fib prophylaxis for milligrams p.o. twice a day. She is still on metoprolol at a dose of 100 mg p.o. 3 times daily. She is on losartan 12.5 mg p.o. daily. No other significant events overnight. On 03/22/2024, the patient is doing very well. The patient is postop day #6 and this morning, the patient is awake and sitting up in a chair. She is calm and comfortable. Cardiac rhythm is sinus and the patient denies having any specific complaints. The patient had a follow-up chest x-ray showed interval clearing of the right lower lobe consolidation/effusion. Remains on IV Zosyn. Continues to use use the incentive spirometer and the patient is pulling approximately 2500 cc. She did encounter brief episodes of atrial fibrillation and currently she is back in normal sinus rhythm. She is maintained on metoprolol 100 mg twice a day and amiodarone 4 mg p.o. twice a day. The patient has been also started on losartan for blood pressure control and his dose was increased up to 25 mg p.o. daily. No nausea. No vomiting. No focal neurological deficits. WBC count 11.9 with a hemoglobin 8.8 and a platelet count of 345. BUN is 15 with a creatinine 0.8 and sodium is at 141. No other significant events overnight. The patient is ambulating. On 03/23/2024, the patient is being seen for a follow-up. The patient is doing well and the patient is currently postop day #7. No respiratory difficulties and the patient is currently on room air oxygen with a pulse ox of 97%. Repeat chest x-ray from today shows no acute cardiopulmonary abnormalities. The patient remains on IV Zosyn to complete antibiotic course. The cultures from the bronchoalveolar lavage were negative for any bacterial growth. WBC count is at 14.1, hemoglobin 9.1 and a platelet count of 396. Electrolytes are normal with a BUN of 12 and a creatinine of 0.9. The patient is ambulating. Cardiac rhythm is sinus. Chest tubes have been removed. Awaiting insurance authorization for rehabilitation at time of discharge. No other significant concerns at this point in time. She continues amiodarone for A-fib prophylaxis. She is also on aspirin and Plavix and the patient is also on metoprolol at a dose of 100 mg p.o. twice a day. She is on losartan 50 mg p.o. daily for blood pressure control. She is on Synthroid. She is on Lasix 20 mg p.o. daily. She is also on Lipitor 40 mg p.o. daily. Objective - Vital Signs Vital signs: Vital Signs Temp 98.2 F 03/23/24 07:31 Pulse 76 03/23/24 07:31 Resp 16 03/23/24 07:31 BP 171/77 03/23/24 07:31 Pulse Ox 99 03/23/24 07:31 FiO2 60 03/19/24 14:30 Intake & Output 03/22/24 03/23/24 03/23/24 18:59 06:59 18:59 Intake Total 710 100 118 Balance 710 100 118 Weight 72.4 kg 72.2 kg Intake: IV 10 100 Invasive Line 7 10 Piperacillin-Tazobactam 3 100 .375 gm In Sodium Chloride 0.9% 100 ml @ 25 mls/hr IVPB Q8H [facility] Rx#: [id number] Oral 700 118 Other: Voiding Method Toilet Toilet Toilet # Voids 4 3 # Bowel Movements 1 ABP, PAP, CO, CI - Last Documented Arterial Blood Pressure 158/49 Pulmonary Artery Pressure 32/19 Cardiac Output 5 Cardiac Index 2.8 - Exam No acute distress, currently calm and comfortable on room air oxygen HEENT examination is grossly unremarkable. Neck supple. Full range of motion. No adenopathy thyromegaly or neck vein distention. Cardiovascular examination reveals regular rhythm rate. S1-S2 normal. No S3 or S4. No discernible murmur noted. Lungs reveal clear breath sounds. Breath sounds are equal bilaterally. No adventitious lung sounds including wheezes rhonchi or crackles. Abdomen soft bowel sounds. No masses. Extremities are intact. No cyanosis clubbing or edema. Skin is without rash or lesion. Neurologic examination is within normal range. No focal deficits. - Labs CBC & Chem 7: 03/23/24 07:23 03/23/24 07:23 Labs: Abnormal Lab Results - Last 24 Hours (Table) 03/22/24 03/22/24 03/23/24 Range/Units 17:46 20:31 07:23 WBC 14.1 H (3.8-10.6) k/uL RBC 2.96 L (3.80-5.40) m/uL Hgb 9.1 L (11.4-16.0) gm/dL Hct 27.3 L (34.0-46.0) % RDW 15.7 H (11.5-15.5) % Neutrophils # 10.4 H (1.3-7.7) k/uL Chloride (98-107) mmol/L POC Glucose (mg/dL) 176 H 131 H (70-110) mg/dL 03/23/24 Range/Units 07:23 WBC (3.8-10.6) k/uL RBC (3.80-5.40) m/uL Hgb (11.4-16.0) gm/dL Hct (34.0-46.0) % RDW (11.5-15.5) % Neutrophils # (1.3-7.7) k/uL Chloride 108 H (98-107) mmol/L POC Glucose (mg/dL) (70-110) mg/dL Microbiology - Last 24 Hours (Table) 03/19/24 09:00 Gram Stain - Final Bronchoalviolar Lavage - Right Bronchial Washings Culture - Final Assessment and Plan Plan: Postop day # 7, status post off-pump four-vessel bypass surgery. Postthoracotomy, currently on room air oxygen Right lower lobe collapse/infiltrate, right lower lobe, with small right-sided pleural effusion. The patient underwent a bronchoscopy, airway examination, therapeutic lavage, BAL to her right lower lobe on 03/19/[address] Shepard, secondary to right lower lobe collapse. She was started on Zosyn for antibiotic coverage and follow-up chest x-ray on 03/22/2024 shows interval clearing of the right lower lobe consolidation. Oxygenation is improved. Patient is currently on room air oxygen. The patient's chest x-ray shows no acute cardiopulmonary process from today and the cultures from the bronchioloalveolar lavage was negative. Multivessel coronary disease and the patient is status post acute non-ST s egment elevation myocardial infarction. Paroxysmal onset atrial fibrillation, brief episode, currently normal sinus rhythm, status post ligation of the left atrial appendage as well as modified Morgan-Maze. The patient is currently on metoprolol and amiodarone. No anticoagulants for now. History of hypertension. History of hyperlipidemia. History of left subclavian stenosis. History of brain aneurysm, status post coiling 2018, and stenting, 2019. History of of left-sided nephrectomy Right renal artery stenosis 60% on CTA in 2019 History of Mnire's disease. Hypothyroidism. Generalized anxiety disorder. Former tobacco dependence. Plan: Clinically stable Oxygenation stable and the patient is on room air oxygen No significant respite distress at rest Using incentive spirometer White cell count is improving May discontinue the IV Zosyn Chest x-ray shows clearing of the right lower lobe consolidation Hemodynamically stable Cardiac rhythm is sinus Continue combination of aspirin and Plavix Continue metoprolol 100 mg p.o. twice a day Losartan 25 mg p.o. daily Amlodipine 5 mg p.o. twice a day Amiodarone 400 mg p.o. twice a day for A-fib prophylaxis Oral iron Thyroid hormone replacement Increase mobility and ambulation Monitor hemoglobin Will continue to follow ECF once ready for discharge
[2024-03-23 16:28] LABS: Glucose,Whole Blood 129 mg/dL (70-110)
--- NOTE | 2024-03-23 16:54 | P.PN ---
Subjective Progress Note Date: 03/23/24 Hospital Course: 68-year-old female with PMH of CAD s/p CABG x 4 with MONZON to LAD, hypertension, dyslipidemia, CKD stage II, solitary kidney status post nephrectomy, who was admitted to the hospital with ACS and underwent heart cath that revealed severe triple-vessel CAD, normal LVEF function, patient underwent CABG that was complicated by acute blood loss anemia requiring blood transfusion. She also had right lower lobe collapse and underwent bronchoscopy with therapeutic lavage started on Zosyn for empiric coverage. Patient also had a brief episode of new onset A-fib, converted to sinus, status post left atrial appendage as well as modified Morgan-Maze. IPR is following, pending therapy evaluation, patient would be a good candidate for IPR and will require insurance authorization. 03/23 Patient was seen and examined. She denies any complaints. Would like to go home but understands importance of SNF. CBC and CMP significant for WBC 14.1, RBC 2.96, Hg 9.1, Hct 27.3, Cl 108. CXR shows no acute process Vitals Signs Reviewed. General: non toxic, no distress, appears at stated age Derm: warm, dry Head: atraumatic, normocephalic, symmetric Eyes: EOMI, no lid lag, anicteric sclera Mouth: no lip lesion, mucus membranes moist Cardiovascular: S1S2 reg, no murmur Lungs: CTA bilateral, no rhonchi, no rales , no accessory muscle use Ext: no gross muscle atrophy, no edema, no contractures Neuro: no focal neuro deficits Psych: Alert, oriented, appropriate affect Assessment and Plan: CAD status post CABG -Continue dual antiplatelet, continue metoprolol 100 twice daily, losartan 50 daily, amlodipine 5 mg, amiodarone 400 mg twice daily, atorvastatin 40 -cardiac rehab following, pending insurance auth for inpatient rehab as well as PTOT notes CKD stage II, solitary kidney, status post left nephrectomy Hyperkalemia resolved -Nephrology following, dose of Losartan increased to 50 mg PO QD -US renal duplex ordered, no stenosis noted -Potassium wnl today New onset atrial fibrillation, brief episode, currently normal sinus rhythm, status post ligation of the left atrial appendage as well as modified Morgan-Maze -No anticoagulation at this time recommended -Continue amiodarone 400 twice daily, continue metoprolol 100 twice daily Right lower lobe collapse, status post bronchoscopy, airway examination, therapeutic lavage, BAL right lower lobe performed by Dr. Shepard 03/19/2024 Acute hypoxic respiratory failure possibly due to volume overload, resolved -Incentive spirometry, daily labs, chest x-ray -Pulmonary following -Follow-up final cultures, so far no particular organism identified, patient is afebrile, mild leukocytosis still present could be reactive, -Started on oral Lasix 20 daily by nephrology -Discontinue Zosyn -Wean off oxygen as tolerated Acute blood loss anemia likely after CABG, combination of iron deficiency and anemia of chronic disease -Hemoglobin is stable above 8 -Iron is low 37, TIBC 164, ferritin 338,204 -Due to patient's significant history of coronary artery disease, will transfuse IV iron once, followed by oral supplementation Hypertension: Continue above management. 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 status post brain coiling followed by stenting DVT ppx: Subcu heparin per CT surgery Anticipated discharge place: Possible IPR, pending PT OT evaluation, pending insurance authorization Anticipated discharge time: 24 hours Objective - Vital Signs Vital signs: Vital Signs Temp 97.1 F L 03/23/24 15:54 Pulse 62 03/23/24 15:54 Resp 16 03/23/24 15:54 BP 133/63 03/23/24 15:54 Pulse Ox 97 03/23/24 15:54 FiO2 60 03/19/24 14:30 Intake & Output 03/22/24 03/23/24 03/23/24 18:59 06:59 18:59 Intake Total 710 100 358 Balance 710 100 358 Weight 72.4 kg 72.2 kg Intake: IV 10 100 Invasive Line 7 10 Piperacillin-Tazobactam 3 100 .375 gm In Sodium Chloride 0.9% 100 ml @ 25 mls/hr IVPB Q8H [facility] Rx#: [id number] Oral 700 358 Other: Voiding Method Toilet Toilet Toilet # Voids 4 3 1 # Bowel Movements 1 2 ABP, PAP, CO, CI - Last Documented Arterial Blood Pressure 158/49 Pulmonary Artery Pressure 32/19 Cardiac Output 5 Cardiac Index 2.8 - Labs CBC & Chem 7: 03/23/24 07:23 03/23/24 07:23 Labs: Abnormal Lab Results - Last 24 Hours (Table) 03/22/24 03/22/24 03/23/24 Range/Units 17:46 20:31 07:23 WBC 14.1 H (3.8-10.6) k/uL RBC 2.96 L (3.80-5.40) m/uL Hgb 9.1 L (11.4-16.0) gm/dL Hct 27.3 L (34.0-46.0) % RDW 15.7 H (11.5-15.5) % Neutrophils # 10.4 H (1.3-7.7) k/uL Chloride (98-107) mmol/L POC Glucose (mg/dL) 176 H 131 H (70-110) mg/dL 03/23/24 03/23/24 Range/Units 07:23 16:26 WBC (3.8-10.6) k/uL RBC (3.80-5.40) m/uL Hgb (11.4-16.0) gm/dL Hct (34.0-46.0) % RDW (11.5-15.5) % Neutrophils # (1.3-7.7) k/uL Chloride 108 H (98-107) mmol/L POC Glucose (mg/dL) 129 H (70-110) mg/dL
[2024-03-23 20:26] LABS: Glucose,Whole Blood 120 mg/dL (70-110)
[2024-03-24 06:12] LABS: Glucose,Whole Blood 137 mg/dL (70-110)
--- NOTE | 2024-03-24 07:19 | XR ---
EXAMINATION TYPE: XR chest 2V DATE OF EXAM: 03/24/2024 6:17 AM COMPARISON: 03/23/2024 CLINICAL INDICATION: Female, 68 years old with history of Postcardiac surgery, TECHNIQUE: Frontal and lateral views of the chest are obtained. FINDINGS: Hyperinflation compatible with COPD. Postoperative changes of CABG. There is no focal air s pace opacity, pleural effusion, or pneumothorax seen. The cardiac silhouette size is within normal l imits. The osseous structures are intact. IMPRESSION: No acute cardiopulmonary process. [facility], , 03/24/2024 7:17 AM
[2024-03-24] MEDS: AMIODARONE 200 MG TAB PO SCH (07:45)
--- NOTE | 2024-03-24 08:05 | P.PN ---
Subjective Progress Note Date: 03/24/24 Principal diagnosis: Coronary artery disease, non-STEMI this admission, new onset atrial fibrillation. History of brain aneurysm with coiling in 2019 and stent in 2020, hypertension, hyperlipidemia, hypothyroid, asymptomatic left subclavian stenosis, left sided nephrectomy, right renal artery stenosis 60% on CTA in 2020, Mnire's disease, previous tobacco dependence, anxiety, family history of myocardial infarction in both her mother and her father POD#8 off-pump myocardial revascularization with coronary artery bypass grafting x 4 including free MONZON sequentially to diagonal and LAD, left radial artery graft to posterior lateral branch of the circumflex coronary artery, saphenous vein graft to the first obtuse marginal coronary artery. Endovascular vein harvest of the greater saphenous vein from the right lower extremity from mid calf to groin. Endovascular harvest of the left radial artery. Modified Morgan- Maze procedure with bilateral pulmonary vein ablation and ligation of the left atrial appendage with a 40 mm AtriCure clip Acute blood loss anemia and thrombocytopenia, somewhat expected given hemodilution Right lower lobe collapse, status post day #4 bronchoscopy, airway examination, therapeutic lavage, BAL right lower lobe performed by Dr. Shepard The patient was seen and examined this morning with Dr. Conklin sitting up in recliner on the cardiac stepdown unit in no acute distress. Currently in sinus rhythm, hemodynamically stable. Remains on room air with oxygen saturation in the mid 90s. She has been ambulatory in the hallway with assistance, showering daily. States pain is controlled on current medication regimen. Labs, chest x- ray reviewed. Microbiology for BAL negative. Awaiting insurance authorization for rehab at discharge. No other new concerns. Objective - Vital Signs Vital signs: Vital Signs Temp 98.0 F 03/24/24 07:37 Pulse 76 03/24/24 07:37 Resp 16 03/24/24 07:37 BP 156/63 03/24/24 07:37 Pulse Ox 99 03/24/24 07:37 FiO2 60 03/19/24 14:30 Intake & Output 03/23/24 03/24/24 03/24/24 18:59 06:59 18:59 Intake Total 598 260 Balance 598 260 Weight 72.3 kg Intake: IV 20 0.9% NS FLUSH 20 Oral 598 240 Other: Voiding Method Toilet Toilet # Voids 1 1 # Bowel Movements 2 ABP, PAP, CO, CI - Last Documented Arterial Blood Pressure 158/49 Pulmonary Artery Pressure 32/19 Cardiac Output 5 Cardiac Index 2.8 - Exam CONSTITUTIONAL: Appears comfortable, cooperative, no acute distress RESPIRATORY: Lungs sounds diminished bilaterally. Respirations even, nonlabored. Currently on room air with oxygen saturation 95%. Able to achieve 2000 mL on incentive spirometry. Strong cough. CARDIOVASCULAR: S1, S2 present. Regular rate and rhythm, sinus rhythm on telemetry. Sternum stable. Palpable peripheral pulses bilaterally. Bilateral lower extremity edema present. No calf pain or tenderness noted. Heart hugger in place with patient demonstrating appropriate use. Antiembolism stockings, SCDs present. GASTROINTESTINAL: Abdomen soft, nontender, nondistended. Active bowel sounds present 4 quadrants. Tolerating diet. Positive bowel movement 03/23 GENITOURINARY: Continues to void although not being measured INTEGUMENTARY: Skin is warm and dry with evidence of good perfusion. Anterior chest incision well approximated. Left radial artery and right lower extremity EVH site well approximated without redness or drainage. NEUROLOGIC: Cranial nerves II through XII intact MUSKULOSKELETAL: Able to move all extremities, strength equal bilaterally, gait normal PSYCHIATRIC: Alert and oriented to person place and time, appropriate affect, intact judgment and insight - Allied health notes Allied health notes reviewed: nursing - Labs CBC & Chem 7: 03/23/24 07:23 03/23/24 07:23 Labs: Abnormal Lab Results - Last 24 Hours (Table) 03/23/24 03/23/24 03/24/24 Range/Units 16:26 20:24 06:10 POC Glucose (mg/dL) 129 H 120 H 137 H (70-110) mg/dL - Imaging and Cardiology Chest x-ray: report reviewed, image reviewed Assessment and Plan Assessment: Coronary artery disease, non-STEMI this admission, status post four-vessel off- pump CABG New onset atrial fibrillation, brief episode, currently sinus, status post ligation of the left atrial appendage as well as modified Morgan-Maze Chest pain, secondary to above Right lower lobe collapse, status post bronchoscopy, airway examination, therapeutic lavage, BAL right lower lobe performed by Dr. Shepard History of brain aneurysm with coiling in 2019 and stent in 2019 Hypertension Hyperlipidemia, cholesterol 181, LDL 99 Hypothyroid, TSH 14.2, T4 1.23 Asymptomatic left subclavian stenosis Left sided nephrectomy Right renal artery stenosis 60% on CTA in 2020 Mnire's disease Previous tobacco dependence, preoperative FEV1 99% of predicted Anxiety Family history of myocardial infarction in both her mother and her father Plan: Continue to maximize medical therapy with aspirin, statin, Plavix, beta-kimo therapy Continue amiodarone for A-fib prophylaxis, will taper weekly. No anticoagulation necessary Continue norvasc for blood pressure and radial artery spasm prophylaxis, continue Cozaar for afterload reduction, increased to 100 mg daily today Encourage incentive spirometry use 10 times every hour while awake. Bronchodilators per pulmonology Increase activity, ambulate as tolerated, PT/OT/cardiac rehab following Will monitor daily labs and x-rays, electrolyte replacement per protocol GI/DVT prophylaxis Pain control per current medication regimen, avoid Toradol due to nephrectomy Insulin management per internal medicine. Patient is not diabetic, preoperative hemoglobin A1c 5.4% Continue to monitor and record strict accurate intake and output Shower daily Discharge planning in progress, once insurance authorization obtained for rehab patient will be discharged More recommendations to follow as patient progresses
[2024-03-24 08:18] LABS: Anisocytosis Slight; HCT 29.2 % (34.0-46.0); HGB 9.6 gm/dL (11.4-16.0); Hypochromasia Slight; MCH 30.8 pg (25.0-35.0); MCHC 32.8 g/dL (31.0-37.0); Mean Platelet Volume 7.7; Platelet Count 429 k/uL (150-450); RBC 3.11 m/uL (3.80-5.40); RDW 16.3 % (11.5-15.5)
[2024-03-24 08:21] LABS: African American GFR (CKD) 71 (>60 ml/min/1.73 sqM); Anion Gap 7 mmol/L; Blood Urea Nitrogen 12 mg/dL (7-17); Calcium 8.6 mg/dL (8.4-10.2); Carbon Dioxide 24 mmol/L (22-30); Chloride 107 mmol/L (98-107); Glucose 136 mg/dL (74-99); Non-African American GFR(CKD) 62 (>60 ml/min/1.73 sqM); Potassium 3.7 mmol/L (3.5-5.1); Sodium 138 mmol/L (137-145)
[2024-03-24 08:48] LABS: Lymphocytes # (M) 2.66 k/uL (1.0-4.8); Monocytes # (M) 0.67 k/uL (0-1.0); Neutrophils # (M) 9.71 k/uL (1.3-7.7); Neutrophils % (M) 73 %; Nucleated Red Blood Cells 3 /100 WBC (0-0); Total Cells Counted 200; WBC 13.3 k/uL (3.8-10.6)
[2024-03-24 08:49] LABS: Anisocytosis (M) Present; Hypochromasia (M) Present
[2024-03-24] MEDS: LOSARTAN 50 MG TAB PO SCH (11:35)
[2024-03-24 11:40] LABS: Glucose,Whole Blood 96 mg/dL (70-110)
--- NOTE | 2024-03-24 12:00 | P.PN ---
Subjective Patient is seen in follow-up for chronic kidney disease. Renal function at baseline. Denies chest pain or shortness of breath. Vital signs are stable. General: No acute distress. HEENT: Head exam is unremarkable. On room air. LUNGS: No audible rhonchi or wheezes. HEART: Rate and Rhythm are regular. ABDOMEN: Nontender. EXTREMITITES: Trace edema. Objective - Vital Signs Vital signs: Vital Signs Temp 98.0 F 03/24/24 07:37 Pulse 76 03/24/24 07:37 Resp 16 03/24/24 07:37 BP 156/63 03/24/24 07:37 Pulse Ox 99 03/24/24 07:37 FiO2 60 03/19/24 14:30 Intake & Output 03/23/24 03/24/24 03/24/24 18:59 06:59 18:59 Intake Total 598 260 240 Balance 598 260 240 Weight 72.3 kg Intake: IV 20 0.9% NS FLUSH 20 Oral 598 240 240 Other: Voiding Method Toilet Toilet Toilet # Voids 1 1 # Bowel Movements 2 ABP, PAP, CO, CI - Last Documented Arterial Blood Pressure 158/49 Pulmonary Artery Pressure 32/19 Cardiac Output 5 Cardiac Index 2.8 - Labs CBC & Chem 7: 03/24/24 06:45 03/24/24 06:45 Labs: Abnormal Lab Results - Last 24 Hours (Table) 03/23/24 03/23/24 03/24/24 Range/Units 16:26 20:24 06:10 WBC (3.8-10.6) k/uL RBC (3.80-5.40) m/uL Hgb (11.4-16.0) gm/dL Hct (34.0-46.0) % RDW (11.5-15.5) % Neutrophils # (Manual) (1.3-7.7) k/uL Nucleated RBCs (0-0) /100 WBC Glucose (74-99) mg/dL POC Glucose (mg/dL) 129 H 120 H 137 H (70-110) mg/dL 03/24/24 03/24/24 Range/Units 06:45 06:45 WBC 13.3 H (3.8-10.6) k/uL RBC 3.11 L (3.80-5.40) m/uL Hgb 9.6 L (11.4-16.0) gm/dL Hct 29.2 L (34.0-46.0) % RDW 16.3 H (11.5-15.5) % Neutrophils # (Manual) 9.71 H (1.3-7.7) k/uL Nucleated RBCs 3 H (0-0) /100 WBC Glucose 136 H (74-99) mg/dL POC Glucose (mg/dL) (70-110) mg/dL Assessment and Plan Plan: Assessment: 1. 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 GFR at baseline. 2. Status post left nephrectomy. 3. Coronary artery disease status post CABG this admission. 4. Hypokalemia from diuresis. Replaced. 5. Hypertension with chronic kidney disease with history of renal artery stenosis in the right kidney. Blood pressure controlled prior to admission with 2 meds. No evidence of renal artery stenosis noted on renal artery duplex ultrasound done this admission. 6. Volume overload. Improved with diuresis. 7. Anemia. Postoperative blood loss. Mild iron deficiency noted. Status post IV iron given March 21, 2024. Plan: Dose of losartan increased again today. Avoid nephrotoxins. Allergic to LEONCIO inhibitor.
--- NOTE | 2024-03-24 12:27 | P.PN ---
Subjective Progress Note Date: 03/24/24 The patient is a 68-year-old female patient with a past medical history significant for CAD status post CABG x 4 with MONZON to LAD and diagonal as well as radial artery to OM and SVG to PLV of the LCx as well as hypertension and dyslipidemia as well as multiple comorbid conditions was admitted in the [facility] with acute coronary syndrome and subsequently she underwent a heart catheterization which revealed severe triple-vessel CAD and also an echo showed normal LV systolic function which she underwent CABG as described above. We CABG was complicated by atrial fibrillation and also anemia requiring blood transfusion March 21, 2024 The patient was seen and evaluated this morning which she is asymptomatic and hemodynamically stable. Her pressure remains elevated and consistent with stage II hypertension. I am going to start the patient on losartan. Please note that the patient does have 1 kidney and we are going to check with the nephrology team. Otherwise she reports no cardiovascular symptoms. The physical examination is remarkable for regular rhythm with a soft systolic murmur and clear breathing sounds bilaterally March 22, 2024 The patient was seen and evaluated this morning. She still hypertensive and the dose of losartan has increased earlier today which I would agree on. Urine output has been good. She has been maintaining normal sinus mechanism with a breakthrough episode of atrial fibrillation she was given a bolus of amiodarone which she is on amiodarone orally at this point. She is on dual antiplatelet therapy along with a statin. The chest x-ray was reviewed. The blood work was reviewed as well. March 23, 2024 Patient seen and examined on the cardiac stepdown unit. Patient has been transferred out of the intensive care unit. She is scheduled to go to rehab today. She states her chest is a little bit sore. Blood pressure readings were high this morning patient was started on losartan by CTS. Heart rate is in the 70s, pulse ox 99% on room air. Repeat blood work reveals WBC 14.1, hemoglobin 9.1, creatinine 0.92. The physical examination is remarkable for regular rhythm with a soft systolic murmur and clear breathing sounds bilaterally March 24, 2024 Patient seen and examined. Patient denies having any chest pain, shortness of breath. She states she is going to [facility] for rehab. Blood pressure 136/66, heart rate 66, pulse ox 97% on room air. Repeat blood work reveals WBC 13.3, hemoglobin 9.6. Creatinine 0.95, electrolytes normal. Losartan was again increased today by CTS. Assessment CAD status post CABG Preserved LV systolic function Solitary kidney Paroxysmal atrial fibrillation Multiple comorbid conditions Plan Continue the current medical regimen Agree with increasing the dose of losartan Continue antiplatelet Monitor the kidney function and electrolytes and hemoglobin Follow-up with the patient. Patient is scheduled for discharge to rehab today. Nurse practitioner note has been reviewed, I agree with documented findings and plan of care. Patient was seen and examined. Objective - Vital Signs Vital signs: Vital Signs Temp 98.0 F 03/24/24 07:37 Pulse 76 03/24/24 07:37 Resp 16 03/24/24 07:37 BP 156/63 03/24/24 07:37 Pulse Ox 99 03/24/24 07:37 FiO2 60 03/19/24 14:30 Intake & Output 03/23/24 03/24/24 03/24/24 18:59 06:59 18:59 Intake Total 598 260 240 Balance 598 260 240 Weight 72.3 kg Intake: IV 20 0.9% NS FLUSH 20 Oral 598 240 240 Other: Voiding Method Toilet Toilet Toilet # Voids 1 1 # Bowel Movements 2 ABP, PAP, CO, CI - Last Documented Arterial Blood Pressure 158/49 Pulmonary Artery Pressure 32/19 Cardiac Output 5 Cardiac Index 2.8 - Labs CBC & Chem 7: 03/24/24 06:45 03/24/24 06:45 Labs: Abnormal Lab Results - Last 24 Hours (Table) 03/23/24 03/23/24 03/24/24 Range/Units 16:26 20:24 06:10 WBC (3.8-10.6) k/uL RBC (3.80-5.40) m/uL Hgb (11.4-16.0) gm/dL Hct (34.0-46.0) % RDW (11.5-15.5) % Neutrophils # (Manual) (1.3-7.7) k/uL Nucleated RBCs (0-0) /100 WBC Glucose (74-99) mg/dL POC Glucose (mg/dL) 129 H 120 H 137 H (70-110) mg/dL 03/24/24 03/24/24 Range/Units 06:45 06:45 WBC 13.3 H (3.8-10.6) k/uL RBC 3.11 L (3.80-5.40) m/uL Hgb 9.6 L (11.4-16.0) gm/dL Hct 29.2 L (34.0-46.0) % RDW 16.3 H (11.5-15.5) % Neutrophils # (Manual) 9.71 H (1.3-7.7) k/uL Nucleated RBCs 3 H (0-0) /100 WBC Glucose 136 H (74-99) mg/dL POC Glucose (mg/dL) (70-110) mg/dL
--- NOTE | 2024-03-24 14:41 | P.PN ---
Subjective Progress Note Date: 03/24/24 68-year-old female with PMH of CAD s/p CABG x 4 with MONZON to LAD, hypertension, dyslipidemia, CKD stage II, solitary kidney status post nephrectomy, who was admitted to the hospital with ACS and underwent heart cath that revealed severe triple-vessel CAD, normal LVEF function. Patient underwent CABG that was complicated by acute blood loss anemia requiring blood transfusion. She also had right lower lobe collapse and underwent bronchoscopy with therapeutic lavage started on Zosyn for empiric coverage. Patient also had a brief episode of new onset A-fib, converted to sinus, status post left atrial appendage as well as modified Morgan-Maze. Initial plans for IPR but denied by insurance. 03/24 Patient was seen and examined. She denies any complaints. Initial plans for IPR but denied by insurance. She would like to go home tomorrow. CBC and BMP significant for WBC 13.3, RBC 3.11, Hg 9.6, Hct 29.2, glu 136. Vitals Signs Reviewed. General: non toxic, no distress, appears at stated age Derm: warm, dry Head: atraumatic, normocephalic, symmetric Eyes: EOMI, no lid lag, anicteric sclera Mouth: no lip lesion, mucus membranes moist Cardiovascular: S1S2 reg, no murmur Lungs: CTA bilateral, no rhonchi, no rales , no accessory muscle use Ext: no gross muscle atrophy, no edema, no contractures Neuro: no focal neuro deficits Psych: Alert, oriented, appropriate affect Based on my assessment of this patient, this patient meets a moderate complexity level of care. CAD status post CABG: ASA 81 mg PO QD. Lipitor 40 mg PO QD. Plavix 75 mg PO QD. Metoprolol 100 mg PO BID. CKD stage II, solitary kidney, status post left nephrectomy: Renal duplex neg for stenosis. Nephrology following. A-Fib: No AC recommended. Metoprolol as above. Amiodarone 200 mg PO BID. Right lower lobe collapse: Status post bronchoscopy and BAL right lower lobe performed by Dr. Shepard 03/19/2024. BAL cultures negative. Zosyn discontinued yesterday. Acute blood loss anemia: Expected result of surgery. Iron 37, TIBC 164, ferritin 338. Continue Fesol 325 mg PO BID. Hypertension: Metoprolol as above. Losartan 100 mg PO QD. Hypothyroid: Synthroid 88 mcg PO QD. Anxiety: Ativan 0.5 mg PO QID PRN. Resolved: Hyperkalemia, Acute hypoxic respiratory failure CODE STATUS: FULL CODE. DVT Prophylaxis: Heparin SQ GI Prophylaxis: Protonix PO Designated medical POA if patient is not able to make medical decisions for themselves: I have reviewed the following senior clinical consultant notes: Nephro, Cardio, CT surgery. I have reviewed the results of the following tests: CBC, BMP. I have ordered the following tests: I have discussed the care of this patient with the following independent historian: Case management. I have independently interpreted the following test below: I have discussed the management of this patient with the following physician: Objective - Vital Signs Vital signs: Vital Signs Temp 98.0 F 03/24/24 07:37 Pulse 66 03/24/24 11:30 Resp 16 03/24/24 11:30 BP 136/66 03/24/24 11:30 Pulse Ox 97 03/24/24 11:30 FiO2 60 03/19/24 14:30 Intake & Output 03/23/24 03/24/24 03/24/24 18:59 06:59 18:59 Intake Total 598 260 240 Balance 598 260 240 Weight 72.3 kg Intake: IV 20 0.9% NS FLUSH 20 Oral 598 240 240 Other: Voiding Method Toilet Toilet Toilet # Voids 1 1 # Bowel Movements 2 ABP, PAP, CO, CI - Last Documented Arterial Blood Pressure 158/49 Pulmonary Artery Pressure 32/19 Cardiac Output 5 Cardiac Index 2.8 - Labs CBC & Chem 7: 03/24/24 06:45 03/24/24 06:45 Labs: Abnormal Lab Results - Last 24 Hours (Table) 03/23/24 03/23/24 03/24/24 Range/Units 16:26 20:24 06:10 WBC (3.8-10.6) k/uL RBC (3.80-5.40) m/uL Hgb (11.4-16.0) gm/dL Hct (34.0-46.0) % RDW (11.5-15.5) % Neutrophils # (Manual) (1.3-7.7) k/uL Nucleated RBCs (0-0) /100 WBC Glucose (74-99) mg/dL POC Glucose (mg/dL) 129 H 120 H 137 H (70-110) mg/dL 03/24/24 03/24/24 Range/Units 06:45 06:45 WBC 13.3 H (3.8-10.6) k/uL RBC 3.11 L (3.80-5.40) m/uL Hgb 9.6 L (11.4-16.0) gm/dL Hct 29.2 L (34.0-46.0) % RDW 16.3 H (11.5-15.5) % Neutrophils # (Manual) 9.71 H (1.3-7.7) k/uL Nucleated RBCs 3 H (0-0) /100 WBC Glucose 136 H (74-99) mg/dL POC Glucose (mg/dL) (70-110) mg/dL
[2024-03-24 16:46] LABS: Glucose,Whole Blood 137 mg/dL (70-110)
--- NOTE | 2024-03-24 18:59 | P.PN ---
Subjective Progress Note Date: 03/24/24 Patient is a 68-year-old female with past medical history significant for brain aneurysm with previous coiling and stent, hypertension, hyperlipidemia, left subclavian stenosis, previous left-sided nephrectomy, hypothyroidism, Mnire's disease, generalized anxiety disorder, and former tobacco dependence. Patient denies any pre-existing lung disease. She does have significant smoking history, smoked 1 pack/day for over 30 years. Patient's primary care provider is marixa Orta out of Dr. Carranza's office. Patient presented to the emergency department back on March 09 with chest pain. Apparently, earlier that morning she was awoken with sudden onset substernal chest pain/tightness. She initially thought this was a anxiety attack as she does have a history of anxiety. No nausea, diaphoresis, shortness of breath. 30 minutes later, the feeling did not subside's, so she did call EMS. Patient did reportedly have a transient episode of A-fib RVR in route to the hospital. Patient was admitted with a diagnosis of non-ST elevation IA. Heart catheterization performed 03/10/2024 demonstrating severe three-vessel coronary artery disease with significant disease involvment of the proximal LAD, demonstrating 60 to 70% , left circumflex artery with 70% stenosis. and 90% stenosis of a nondominant RCA. Follow-up echocardiogram preserved left ventricular ejection fraction of 55 to 60%. No significant valvular abnormalities reported. Cardiothoracic surgery was consulted, patient is scheduled for surgical revascularization tomorrow morning. We were consulted for preoperative pulmonary clearance ventilator management following the procedure. As stated above, patient has no diagnosed history of pre-existing lung disease. She does have significant smoking history over [id number]. Patient did have bedside spirometry which showed an FEV1 2.35 L or 99% of predicted. Chest CTA done on arrival did not show any evidence of pulmonary emboli. There was evidence of mild emphysematous changes. Biapical scarring. Few borderline mildly enlarged lymph nodes in the hilum measuring 1.2 cm. Otherwise no acute findings. Most recent CBC done yesterday with a WBC count 8.4, hemoglobin 14.1, hematocrit 43.2, platelets 251. aPTT currently therapeutic at 67.7. BMP from yesterday: Sodium 140, potassium 4.3, chloride 110, serum bicarb 21, BUN 22, creatinine 0.93, glucose 93. Patient is currently walking the halls on room air. She has no respiratory distress. No current chest pain. Does have normal saline infusing at 50 mL/h. Also, heparin is infusion per protocol. Surgery is scheduled for tomorrow morning. Progress note dated March 16, 2024. 68-year-old female seen in consultation yesterday. Please see the note above. The patient had a off-pump four-vessel bypass surgery done today by Dr. Conklin. Please refer to the operative note. The patient is currently on the ventilator. Ventilator settings include volume assist-control, rate 16, tidal volume 400, FiO2 50%, and PEEP of 5. Blood gases on same settings, with FiO2 of 100%, showed a pO2 of 300, pCO2 of 33, and a pH of 7.399. The patient is on nitroglycerin at 5 mcg/min, propofol at 40 mcg/kg/min, 0.9 at 50 cc an hour, and amiodarone per protocol. In addition, the patient be started on an insulin drip at 1.5 units an hour. The patient's cardiac output is 3.3, and the index is 1.9. Pulmonary artery pressures 27/13. Current labs include a white count 7.9, hemoglobin 8.2, hematocrit 23.7, and a platelet count of 111,000. Sodium 141, potassium 4, chlorides 117, CO2 20, BUN 16, creatinine 0.71. Glucose is 151. Chest x-ray reveals an endotracheal tube, which is 5 cm above the tracheal jaki. There is a left-sided chest tube present. There is a mediastinal tube in the midline. Nasogastric tube was also noted, as well as a Madison-Rae catheter. There are some bibasilar atelectasis, and a small right apical pneumothorax. Progress note dated March 17, 2024. 68-year-old female seen today in room 264. She is postop day #1, status post off-pump four-vessel bypass surgery. She is on volume assist-control, rate 14, tidal volume 400, FiO2 40%, PEEP of 5. Blood gases show pO2 of 138, pCO2 of 30, pH is 7.38. Repeat blood gases show pO2 of 98, pCO2 31, pH is 7.41. She is on pressure support of 5 and CPAP of 5. The patient can be extubated. Rapid shallow breathing index is 38. The patient is getting saline at 50 cc an hour, insulin at 2 units an hour, and amiodarone 0.5 mg/min. White count is 11, hemoglobin 8.7, hematocrit 25.2, platelet count normal. Sodium 139, potassium 3.3, chlorides 115, CO2 16, BUN 13, creatinine 0.75. Calcium is 7.9. Albumin is 3.4. Chest x-ray shows some postsurgical changes. Previous right apical pneumothorax is not seen. Progress note dated March 18, 2024. 68-year-old female seen today in room 264. She is postoperative day #2, status post off-pump four-vessel bypass grafting. The patient saturations were a bit low. We placed her on BiPAP, with settings of 12/6, and 60%. Patient is getting saline at 20 cc an hour. The patient blood gases showed a pO2 of 68, pCO2 of 28, and a pH of 7.40. This blood gas was consistent with a mixed acid- base disturbance, including a respiratory alkalosis, and metabolic acidosis. She has a nonanion gap hyperchloremic metabolic acidosis. The patient is getting saline at 20 cc an hour. An ultrasound of the right chest, reveals only small amounts of fluid. The patient received Lasix 20 mg IV push. Current laboratory data includes a white count 15.4, hemoglobin 8.6, hematocrit 24.8, and a platelet count of 152,000. Sodium 137, potassium 4.3, chlorides 112, CO2 18, BUN 16, creatinine 0.87. Glucose 117. Albumin 3.4. X-ray shows a right lower lobe infiltrate/effusion. Small left apical pneumothorax is seen. Progress note dated March 19, 2024. 68-year-old female seen today in room 264. The patient is postoperative day #3, status post off-pump four-vessel bypass surgery. Chest x-rays from yesterday, and this morning, reveal a partial right lower lobe collapse. The patient will undergo bronchoscopy today. The patient is on lactated Ringer's at 30 cc an hour. The patient continues on BiPAP, with settings of 12/5, and 60%. White count of 17.1, hemoglobin 7.8, hematocrit 22.6, and platelet count of 173,000. Blood gases today show pO2 of 78, pCO2 of 30, pH is 7.42. These blood gases are consistent with a mixed acid-base disturbance, including a respiratory alkalosis, and mild metabolic acidosis. Sodium 134, potassium 3.8, chlorides 108, CO2 18, anion gap 8, BUN 28, creatinine 0.99. Glucose 112. Albumin 3.4. Chest x-ray reveals either collapse, or infiltrate, in the right lower lobe, and a very small left apical pneumothorax. Progress note dated March 20, 2024. 60 room 264. She is postoperative day #4, status [facility] The patient's chest x-ray has shown persistent infiltrate or collapse of the right lower lobe. Yesterday, we did bronchoscopy in the room, and the patient had significant purulent secretions in the right middle lobe but mostly in the right lower lobe. They were suctioned without difficulty. Specimens are sent to the laboratory for analysis. In addition, her procalcitonin level was elevated, and the patient was started on Zosyn empirically. Today she is doing a bit better. She is sitting in the chair next to her hospital bed. She is on 4 L of oxygen. She continues on Zosyn. She is getting lactated Ringer's at 20 cc an hour. White count is 14.7, hemoglobin 7.6, hematocrit 22.6, platelet count normal. Sodium 134, potassium 3.5, chlorides 109, CO2 22, BUN 25, creatinine 0.92. Glucose 134. Albumin is 3. His x-ray continues to show small pleural effusions, and bibasilar infiltrates, right greater than left. On 03/21/2024, the patient is postop day #5. She is calm and comfortable sitting up in a chair. She is using the incentive spirometer. No significant respiratory distress. She underwent a bronchoscopy and a bronchioloalveolar lavage of the right lower lobe. Cultures are still negative. Repeat chest x- ray still showing new consolidation right lung base along with bilateral pleural effusions slightly worse on the right. She is using the incentive spirometer, pulling approximately 2500 cc. Her cardiac rhythm is sinus. She is on no pressors. She is awake and alert and communicating. Sternum is stable clean and intact. She remains on IV Zosyn as a broad-spectrum antibiotic coverage. The blood work from today shows improvement in her white cell count which is currently down to 11.3 with a hemoglobin of 8.1 and a platelet count of 276. So dium is at 140, BUN is 18 with a creatinine of 0.8, electrolytes are all within normal limits. She is afebrile. Potassium level is being replaced. She remains on aspirin and Plavix. She is on amiodarone for A-fib prophylaxis for milligrams p.o. twice a day. She is still on metoprolol at a dose of 100 mg p.o. 3 times daily. She is on losartan 12.5 mg p.o. daily. No other significant events overnight. On 03/22/2024, the patient is doing very well. The patient is postop day #6 and this morning, the patient is awake and sitting up in a chair. She is calm and comfortable. Cardiac rhythm is sinus and the patient denies having any specific complaints. The patient had a follow-up chest x-ray showed interval clearing of the right lower lobe consolidation/effusion. Remains on IV Zosyn. Continues to use use the incentive spirometer and the patient is pulling approximately 2500 cc. She did encounter brief episodes of atrial fibrillation and currently she is back in normal sinus rhythm. She is maintained on metoprolol 100 mg twice a day and amiodarone 4 mg p.o. twice a day. The patient has been also started on losartan for blood pressure control and his dose was increased up to 25 mg p.o. daily. No nausea. No vomiting. No focal neurological deficits. WBC count 11.9 with a hemoglobin 8.8 and a platelet count of 345. BUN is 15 with a creatinine 0.8 and sodium is at 141. No other significant events overnight. The patient is ambulating. On 03/23/2024, the patient is being seen for a follow-up. The patient is doing well and the patient is currently postop day #7. No respiratory difficulties and the patient is currently on room air oxygen with a pulse ox of 97%. Repeat chest x-ray from today shows no acute cardiopulmonary abnormalities. The patient remains on IV Zosyn to complete antibiotic course. The cultures from the bronchoalveolar lavage were negative for any bacterial growth. WBC count is at 14.1, hemoglobin 9.1 and a platelet count of 396. Electrolytes are normal with a BUN of 12 and a creatinine of 0.9. The patient is ambulating. Cardiac rhythm is sinus. Chest tubes have been removed. Awaiting insurance authorization for rehabilitation at time of discharge. No other significant concerns at this point in time. She continues amiodarone for A-fib prophylaxis. She is also on aspirin and Plavix and the patient is also on metoprolol at a dose of 100 mg p.o. twice a day. She is on losartan 50 mg p.o. daily for blood pressure control. She is on Synthroid. She is on Lasix 20 mg p.o. daily. She is also on Lipitor 40 mg p.o. daily. On 03/24/2024, the patient is being seen for a follow-up. The patient is postop day #8 following coronary bypass surgery and the patient is currently on room air oxygen. No new complaints for now. No respiratory difficulties. She is ambulating. Cardiac rhythm is sinus. Using incentive spirometer. Chest x-ray from today shows no acute cardiopulmonary process. The patient remains on DuoNeb updrafts 4 times daily and as needed. Antibiotics has been discontinued. She remains on Lasix 20 mg p.o. daily. She remains on aspirin and Plavix. She remains on metoprolol 100 mg p.o. twice a day. She is on Synthroid 88 mcg p.o. daily. She is on Lipitor 40 mg p.o. daily and she is also on iron tablets. No issues with pain. She is looking for discharge probably within next 24 hours. Not a candidate for ECF. Hemoglobin is at 9.6, electrolytes are normal with a BUN of 12 with a creatinine 0.95. Objective - Vital Signs Vital signs: Vital Signs Temp 98.0 F 03/24/24 07:37 Pulse 76 03/24/24 07:37 Resp 16 03/24/24 07:37 BP 156/63 03/24/24 07:37 Pulse Ox 99 03/24/24 07:37 FiO2 60 03/19/24 14:30 Intake & Output 03/23/24 03/24/24 03/24/24 18:59 06:59 18:59 Intake Total 598 260 240 Balance 598 260 240 Weight 72.3 kg Intake: IV 20 0.9% NS FLUSH 20 Oral 598 240 240 Other: Voiding Method Toilet Toilet Toilet # Voids 1 1 # Bowel Movements 2 ABP, PAP, CO, CI - Last Documented Arterial Blood Pressure 158/49 Pulmonary Artery Pressure 32/19 Cardiac Output 5 Cardiac Index 2.8 - Exam No acute distress, currently calm and comfortable on room air oxygen HEENT examination is grossly unremarkable. Neck supple. Full range of motion. No adenopathy thyromegaly or neck vein di stention. Cardiovascular examination reveals regular rhythm rate. S1-S2 normal. No S3 or S4. No discernible murmur noted. Lungs reveal clear breath sounds. Breath sounds are equal bilaterally. No adventitious lung sounds including wheezes rhonchi or crackles. Abdomen soft bowel sounds. No masses. Extremities are intact. No cyanosis clubbing or edema. Skin is without rash or lesion. Neurologic examination is within normal range. No focal deficits. - Labs CBC & Chem 7: 03/24/24 06:45 03/24/24 06:45 Labs: Abnormal Lab Results - Last 24 Hours (Table) 03/23/24 03/23/24 03/24/24 Range/Units 16:26 20:24 06:10 WBC (3.8-10.6) k/uL RBC (3.80-5.40) m/uL Hgb (11.4-16.0) gm/dL Hct (34.0-46.0) % RDW (11.5-15.5) % Neutrophils # (Manual) (1.3-7.7) k/uL Nucleated RBCs (0-0) /100 WBC Glucose (74-99) mg/dL POC Glucose (mg/dL) 129 H 120 H 137 H (70-110) mg/dL 03/24/24 03/24/24 Range/Units 06:45 06:45 WBC 13.3 H (3.8-10.6) k/uL RBC 3.11 L (3.80-5.40) m/uL Hgb 9.6 L (11.4-16.0) gm/dL Hct 29.2 L (34.0-46.0) % RDW 16.3 H (11.5-15.5) % Neutrophils # (Manual) 9.71 H (1.3-7.7) k/uL Nucleated RBCs 3 H (0-0) /100 WBC Glucose 136 H (74-99) mg/dL POC Glucose (mg/dL) (70-110) mg/dL Assessment and Plan Plan: Postop day # 8, status post off-pump four-vessel bypass surgery. Postthoracotomy, currently on room air oxygen Right lower lobe collapse/infiltrate, right lower lobe, with small right-sided pleural effusion. The patient underwent a bronchoscopy, airway examination, therapeutic lavage, BAL to her right lower lobe on 03/19/[address] Shepard, secondary to right lower lobe collapse. She was started on Zosyn for antibiotic coverage and follow-up chest x-ray on 03/22/2024 shows interval clearing of the right lower lobe consolidation. Oxygenation is improved. Patient is currently on room air oxygen. The patient's chest x-ray shows no acute cardiopulmonary process from today and the cultures from the bronchioloalveolar lavage was negative. Antibiotics has been discontinued Multivessel coronary disease and the patient is status post acute non-ST segment elevation myocardial infarction. Paroxysmal onset atrial fibrillation, brief episode, currently normal sinus rhythm, status post ligation of the left atrial appendage as well as modified Morgan-Maze. The patient is currently on metoprolol and amiodarone. No ant icoagulants for now. History of hypertension. History of hyperlipidemia. History of left subclavian stenosis. History of brain aneurysm, status post coiling 2018, and stenting, 2019. History of of left-sided nephrectomy Right renal artery stenosis 60% on CTA in 2020 History of Mnire's disease. Hypothyroidism. Generalized anxiety disorder. Former tobacco dependence. Plan: Clinically stable Oxygenation stable and the patient is on room air oxygen No significant respite distress at rest Using incentive spirometer White cell count is improving Antibiotics discontinued Chest x-ray shows clearing of the right lower lobe consolidation Hemodynamically stable Cardiac rhythm is sinus Continue combination of aspirin and Plavix Continue metoprolol 100 mg p.o. twice a day Losartan 100 mg p.o. daily Amlodipine 5 mg p.o. twice a day Amiodarone 400 mg p.o. twice a day for A-fib prophylaxis Oral iron Thyroid hormone replacement Increase mobility and ambulation Monitor hemoglobin Will continue to follow Will likely go home. Did not qualify for ECF.
[2024-03-24 19:56] LABS: Glucose,Whole Blood 136 mg/dL (70-110)
[2024-03-25 03:22] VITALS: PULSE 71; RESP 18
[2024-03-25 06:05] LABS: Glucose,Whole Blood 120 mg/dL (70-110)
--- NOTE | 2024-03-25 08:20 | XR ---
EXAMINATION TYPE: XR chest 2V DATE OF EXAM: 03/25/2024 6:45 AM COMPARISON: 03/24/2024 CLINICAL INDICATION: Female, 68 years old with history of Postcardiac surgery, TECHNIQUE: Frontal and lateral views of the chest are obtained. FINDINGS: Postop cardiac surgery. Mild blunting costophrenic angles. No focal infiltrate. No pneumoth orax. Cardiomediastinal silhouette is stable. IMPRESSION: No acute cardiopulmonary process. [facility], , 03/25/2024 8:18 AM
[2024-03-25 09:14] LABS: Anisocytosis Slight; HCT 27.6 % (34.0-46.0); HGB 8.8 gm/dL (11.4-16.0); Hypochromasia Slight; MCH 30.5 pg (25.0-35.0); MCHC 31.9 g/dL (31.0-37.0); MCV 95.5 fL (80.0-100.0); Macrocytosis Slight; Mean Platelet Volume 7.3; Platelet Count 416 k/uL (150-450); RBC 2.89 m/uL (3.80-5.40); RDW 17.5 % (11.5-15.5); WBC 13.5 k/uL (3.8-10.6)
--- NOTE | 2024-03-25 09:17 | P.PN ---
Subjective Progress Note Date: 03/25/24 Principal diagnosis: Coronary artery disease, non-STEMI this admission, new onset atrial fibrillation. History of brain aneurysm with coiling in 2019 and stent in 2020, hypertension, hyperlipidemia, hypothyroid, asymptomatic left subclavian stenosis, left sided nephrectomy, right renal artery stenosis 60% on CTA in 2020, Mnire's disease, previous tobacco dependence, anxiety, family history of myocardial infarction in both her mother and her father POD#9 off-pump myocardial revascularization with coronary artery bypass grafting x 4 including free MONZON sequentially to diagonal and LAD, left radial artery graft to posterior lateral branch of the circumflex coronary artery, saphenous vein graft to the first obtuse marginal coronary artery. Endovascular vein harvest of the greater saphenous vein from the right lower extremity from mid calf to groin. Endovascular harvest of the left radial artery. Modified Morgan- Maze procedure with bilateral pulmonary vein ablation and ligation of the left atrial appendage with a 40 mm AtriCure clip Acute blood loss anemia and thrombocytopenia, somewhat expected given hemodilution Right lower lobe collapse, status post day #5 bronchoscopy, airway examination, therapeutic lavage, BAL right lower lobe performed by Dr. Shepard The patient was seen and examined this morning sitting up in bed on the cardiac stepdown unit in no acute distress eating breakfast. Currently in sinus rhythm, hemodynamically stable. Remains on room air with oxygen saturation in the high 90s. She has been ambulatory in the hallway with assistance, showering daily. States pain is controlled on current medication regimen. Labs, chest x-ray reviewed. Microbiology for BAL negative. Insurance authorization unable to be obtained as patient is ambulating 300 feet, anticipate discharge to home with home care this morning. No other new concerns. Objective - Vital Signs Vital signs: Vital Signs Temp 98.2 F 03/25/24 03:20 Pulse 71 03/25/24 03:20 Resp 18 03/25/24 03:20 BP 132/67 03/25/24 03:20 Pulse Ox 98 03/25/24 09:03 FiO2 60 03/19/24 14:30 Intake & Output 03/24/24 03/25/24 03/25/24 18:59 06:59 18:59 Intake Total 598 220 Balance 598 220 Intake: Oral 598 220 Other: Voiding Method Toilet Toilet # Voids 3 1 ABP, PAP, CO, CI - Last Documented Arterial Blood Pressure 158/49 Pulmonary Artery Pressure 32/19 Cardiac Output 5 Cardiac Index 2.8 - Exam CONSTITUTIONAL: Appears comfortable, cooperative, no acute distress RESPIRATORY: Lungs sounds diminished in the bases bilaterally. Respirations even, nonlabored. Currently on room air with oxygen saturation 98%. Able to achieve 2500 mL on incentive spirometry. Strong cough. CARDIOVASCULAR: S1, S2 present. Regular rate and rhythm, sinus rhythm on telemetry. Sternum stable. Palpable peripheral pulses bilaterally. Trace bilateral lower extremity edema present. No calf pain or tenderness noted. Heart hugger in place with patient demonstrating appropriate use. Antiembolism stockings, SCDs present. GASTROINTESTINAL: Abdomen soft, nontender, nondistended. Active bowel sounds present 4 quadrants. Tolerating diet. Positive bowel movement 03/23 GENITOURINARY: Continues to void although not being measured INTEGUMENTARY: Skin is warm and dry with evidence of good perfusion. Anterior chest incision well approximated. Left radial artery and right lower extremity EVH site well approximated without redness or drainage. NEUROLOGIC: Cranial nerves II through XII intact MUSKULOSKELETAL: Able to move all extremities, strength equal bilaterally, gait normal PSYCHIATRIC: Alert and oriented to person place and time, appropriate affect, intact judgment and insight - Allied health notes Allied health notes reviewed: nursing - Labs CBC & Chem 7: 03/24/24 06:45 03/24/24 06:45 Labs: Abnormal Lab Results - Last 24 Hours (Table) 03/24/24 03/24/24 03/25/24 Range/Units 16:45 19:49 06:04 POC Glucose (mg/dL) 137 H 136 H 120 H (70-110) mg/dL - Imaging and Cardiology Chest x-ray: report reviewed, image reviewed Assessment and Plan Assessment: Coronary artery disease, non-STEMI this admission, status post four-vessel off- pump CABG New onset atrial fibrillation, brief episode, currently sinus, status post ligation of the left atrial appendage as well as modified Morgan-Maze Chest pain, secondary to above Right lower lobe collapse, status post bronchoscopy, airway examination, therapeutic lavage, BAL right lower lobe performed by Dr. Shepard History of brain aneurysm with coiling in 2018 and stent in 2019 Hypertension Hyperlipidemia, cholesterol 181, LDL 99 Hypothyroid, TSH 14.2, T4 1.23 Asymptomatic left subclavian stenosis Left sided nephrectomy Right renal artery stenosis 60% on CTA in 2020 Mnire's disease Previous tobacco dependence, preoperative FEV1 99% of predicted Anxiety Family history of myocardial infarction in both her mother and her father Plan: Continue to maximize medical therapy with aspirin, statin, Plavix, beta-kimo therapy Continue amiodarone for A-fib prophylaxis, will taper weekly. No anticoagulation necessary Continue norvasc for blood pressure and radial artery spasm prophylaxis, continue Cozaar for afterload reduction Encourage incentive spirometry use 10 times every hour while awake. Bronchodila tors per pulmonology Increase activity, ambulate as tolerated, PT/OT/cardiac rehab following Will monitor daily labs and x-rays, electrolyte replacement per protocol GI/DVT prophylaxis Pain control per current medication regimen, avoid Toradol due to nephrectomy Insulin management per internal medicine. Patient is not diabetic, preoperative hemoglobin A1c 5.4% Continue to monitor and record strict accurate intake and output Shower daily Discharge planning in progress, will discharge to home with home care this morning More recommendations to follow as patient progresses
[2024-03-25 09:40] LABS: African American GFR (CKD) 64 (>60 ml/min/1.73 sqM); Anion Gap 6 mmol/L; Blood Urea Nitrogen 15 mg/dL (7-17); Calcium 8.7 mg/dL (8.4-10.2); Carbon Dioxide 27 mmol/L (22-30); Chloride 105 mmol/L (98-107); Glucose 115 mg/dL (74-99); Non-African American GFR(CKD) 55 (>60 ml/min/1.73 sqM); Potassium 4.2 mmol/L (3.5-5.1); Sodium 138 mmol/L (137-145)
--- NOTE | 2024-03-25 10:00 | P.DS ---
Providers Date of admission: 03/09/24 08:09 Expected date of discharge: 03/25/24 Attending physician: Pedrito Conklin Consults: 03/09/24 08:08 Consult Physician Urgent Consulting Provider: [facility] Consult Reason/Comments: acute chest pain, new onset afib with rvr Do you want consulting provider notified?: Yes 03/10/24 11:21 Consult Physician Routine Consulting Provider: Pedrito Conklin Consult Reason/Comments: CAD Do you want consulting provider notified?: Yes 03/14/24 08:05 Consult Physician Routine Consulting Provider: Sam Shepard Consult Reason/Comments: Preop clearance for CABG Do you want consulting provider notified?: Already Contacted 03/14/24 12:18 Consult Physician Routine Consulting Provider: Viviane Ruiz Consult Reason/Comments: CKD, scheduled to undergo CABG Do you want consulting provider notified?: Yes 03/15/24 14:19 Consult to Anesthesia Routine Consulting Provider: Anesthesia,Services Consult Reason/Comments: Cardiac Surgery Pre-Op 03/16/24 14:18 Consult Physician Routine Consulting Provider: Lata Bettencourt Consult Reason/Comments: diabetic managment Do you want consulting provider notified?: Already Contacted 03/21/24 07:58 Consult Physician Routine Consulting Provider: Gerry Shah Consult Reason/Comments: Evaluation for inpatient rehab Do you want consulting provider notified?: Yes Primary care physician: Zbigniew Carranza Hospital Course: FINAL DIAGNOSIS: Coronary artery disease, non-STEMI this admission New onset atrial fibrillation, brief episode, currently sinus Chest pain, secondary to above Right lower lobe collapse History of brain aneurysm with coiling in 2019 and stent in 2019 Hypertension Hyperlipidemia, cholesterol 181, LDL 99 Hypothyroid, TSH 14.2, T4 1.23 Asymptomatic left subclavian stenosis Left sided nephrectomy Right renal artery stenosis 60% on CTA in 2020 Mnire's disease Previous tobacco dependence, preoperative FEV1 99% of predicted Anxiety Family history of myocardial infarction in both her mother and her father PRINCIPAL PROCEDURE: Off-pump myocardial revascularization with coronary artery bypass grafting x 4 including free MONZON sequentially to diagonal and LAD, left radial artery graft to posterior lateral branch of the circumflex coronary artery, saphenous vein graft to the first obtuse marginal coronary artery Endovascular vein harvest of the greater saphenous vein from the right lower extremity from mid calf to groin Endovascular harvest of the left radial artery Modified Morgan-Maze procedure with bilateral pulmonary vein ablation and ligation of the left atrial appendage with a 40 mm AtriCure clip Bronchoscopy, airway examination, therapeutic lavage, BAL right lower lobe performed by Dr. 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 Carranza's office for primary care. She presented to [facility] emergency room after she woke up with substernal chest pain and palpitations. She stated she had never had this before although with further probing she did admit to recent attacks of chest tightness which she attributed to her anxiety and thought she was having panic attacks. She denied any shortness of breath, nausea, lightheadedness or diaphoresis. She called 911, in the ambulance she was found to be in A-fib with RVR although she converted back to normal sinus rhythm prior to arrival to the hospital. In the emergency room a chest x-ray was completed demonstrating no acute process. Brain CT was completed demonstrating previous embolization coil in the anterior midline, mild chronic small vessel ischemic disease, no acute intracranial abnormality. EKG showed sinus rhythm. Chest CT was also completed without evidence of pulmonary embolus, there was noted mild emphysema, as well as a 1.2 cm enlarged lymph node in the jessica. Lab work revealed WBC 6.0, hemoglobin 16, platelet count 242, D-dimer 0.81, creatinine 0.80, BNP 281, troponin 0.018 which elevated to 0.066, total bili 1.6, AST 90, TSH 14.2 with free T4 1.23. Patient was admitted for non-STEMI, consultation was placed to cardiology for chest pain and new onset A-fib, vascular surgery was consulted for left subclavian stenosis. The patient was seen by Dr. Campos with no plans for surgical intervention. Transthoracic echocardiogram was ordered by cardiology which demonstrated normal left ventricular systolic function with EF 55 to 60%, mild tricuspid regurgitation with no other significant valvular pathology, and normal size aortic root and proximal ascending aorta. Heart catheterization was completed by Dr. Farr revealing coronary artery disease. Due to this finding consultation was placed to Dr. Conklin from cardiothoracic surgery for surgical revascularization recommendations. She was recommended to undergo coronary artery bypass surgery. The usual perioperative course was discussed in detail with the patient, all risks and benefits were explained, all questions were answered, and consent was obtained to proceed with surgery. The patient was kept inpatient due to the nature of her disease process to allow for Plavix metabolism. HOSPITAL COURSE: The patient was brought to the preoperative area 03/16/24, prepared in the usual fashion, and subsequently taken to the operating room where Dr. Conklin performed four-vessel off-pump CABG. Upon completion of surgery the patient was transferred to the cardiovascular intensive care unit where she was recovered and monitored hemodynamically. She was extubated, all lines, tubes, and drips were discontinued when appropriate. She did undergo bronchoscopy with airway examination and bronchoalveolar lavage due to right lower lobe collapse which resolved. She was transferred to [facility] cardiac stepdown unit for further monitoring and rehabilitation. Her oxygen was titrated down, she continued to work with physical and occupational therapy, she was tolerating oral diet, her pain was controlled, and she was ready to be discharged to home with [facility] care on postoperative day #9. She received written and verbal instruction regarding her medications, activity restrictions, signs and symptoms requiring physician notification, and follow-up appointments. Patient Condition at Discharge: Stable Plan - Discharge Summary Discharge Rx Participant: Yes New Discharge Prescriptions: New Aspirin 81 mg PO DAILY #30 tab Losartan [Cozaar] 100 mg PO DAILY@1200 #30 tab Metoprolol Tartrate [Lopressor] 100 mg PO BID #60 tab Pantoprazole [Protonix] 40 mg PO AC-BID #30 tab Sennosides-Docusate Sodium [Senokot-S] 2 each PO HS PRN #30 tab PRN Reason: Constipation Acetaminophen Tab [Tylenol] 1,000 mg PO Q6HR PRN #120 tab PRN Reason: Fever And/ Or Pain Amiodarone [Cordarone] 200 mg PO BID #19 tab Furosemide [Lasix] 20 mg PO DAILY #30 tab Atorvastatin [Lipitor] 40 mg PO DAILY #30 tab Continue cycloSPORINE [Restasis] 1 drop BOTH EYES BID Calcium Carbonate/Vitamin D3 [Calcium 600-Vit D3 400 Tablet] 2 tab PO DAILY Vitamin E (Dl,Tocopheryl Acet) [Vitamin E (400 Iu = 180 mg)] 400 unit PO DAILY Clopidogrel Bisulfate [Plavix] 75 mg PO DAILY Cyanocobalamin (Vitamin B-12) [Vitamin B-12] 1,000 mcg PO DAILY Vitamin B Complex/Folic Acid [B-Complex Tablet] 1 tab PO DAILY LORazepam [Ativan] 0.5 mg PO BID Levothyroxine Sodium [Synthroid] 88 mcg PO DAILY Multivit-Min/Iron/Folic/Lutein [Centrum Silver Women Tablet] 1 tab PO DAILY amLODIPine [Norvasc] 5 mg PO BID Discontinued Pitavastatin Calcium [Livalo] 1 mg PO HS Metoprolol Tartrate [Lopressor] 75 mg PO BID Discharge Medication List Calcium Carbonate/Vitamin D3 [Calcium 600-Vit D3 400 Tablet] 2 tab PO DAILY 09/21/14 [History] cycloSPORINE [Restasis] 1 drop BOTH EYES BID 09/21/14 [History] Vitamin E (Dl,Tocopheryl Acet) [Vitamin E (400 Iu = 180 mg)] 400 unit PO DAILY 04/18/19 [History] Clopidogrel Bisulfate [Plavix] 75 mg PO DAILY 11/24/19 [History] Cyanocobalamin (Vitamin B-12) [Vitamin B-12] 1,000 mcg PO DAILY 11/24/19 [History] LORazepam [Ativan] 0.5 mg PO BID 11/24/19 [History] Vitamin B Complex/Folic Acid [B-Complex Tablet] 1 tab PO DAILY 11/24/19 [History] Levothyroxine Sodium [Synthroid] 88 mcg PO DAILY 03/09/24 [History] Multivit-Min/Iron/Folic/Lutein [Centrum Silver Women Tablet] 1 tab PO DAILY 03/09/24 [History] amLODIPine [Norvasc] 5 mg PO BID 03/09/24 [History] Acetaminophen Tab [Tylenol] 1,000 mg PO Q6HR PRN #120 tab 03/25/24 [Rx] Amiodarone [Cordarone] 200 mg PO BID #19 tab 03/25/24 [Rx] Aspirin 81 mg PO DAILY #30 tab 03/25/24 [Rx] Atorvastatin [Lipitor] 40 mg PO DAILY #30 tab 03/25/24 [Rx] Furosemide [Lasix] 20 mg PO DAILY #30 tab 03/25/24 [Rx] Losartan [Cozaar] 100 mg PO DAILY@1200 #30 tab 03/25/24 [Rx] Metoprolol Tartrate [Lopressor] 100 mg PO BID #60 tab 03/25/24 [Rx] Pantoprazole [Protonix] 40 mg PO AC-BID #30 tab 03/25/24 [Rx] Sennosides-Docusate Sodium [Senokot-S] 2 each PO HS PRN #30 tab 03/25/24 [Rx] Follow up Appointment(s)/Referral(s): Viviane Ruiz MD [STAFF PHYSICIAN] - As Needed (Follow up as you normally would) [facility],Cardiac [NON-STAFF] - 4 Weeks (You will receive a phone call in approximately 4-6 weeks for evaluation for cardiac rehab) Aging,[facility] [NON-STAFF] - (Can hep with Medical Transoprt and house keeping.) Elliot Lu,Home Care [NON-STAFF] - 1-2 Days (You should be seen the day after discharge by RN, then 2-3 times per week until you start cardiac rehab. PT/OT should visit at least once, may continue to visit if necessary) Zbigniew Carranza MD [Primary Care Provider] - 04/07/24 12:15 pm (Appointment is with MITCHEL Orta) Pedrito Conklin MD [STAFF PHYSICIAN] - 04/21/24 2:00 pm Sam Shepard DO [Doctor of Osteopathic Medicine] - 04/13/24 1:45 pm () Kulwinder Farr MD [STAFF PHYSICIAN] - 03/31/24 4:00 pm () Ambulatory/Diagnostic Orders: Complete Blood Count w/diff [LAB.AMB] Time Frame: 3 Days, Location: None Selected Comprehensive Metabolic Panel [LAB.AMB] Time Frame: 3 Days, Location: None Selected Activity/Diet/Wound Care/Special Instructions: DISCHARGE INSTRUCTIONS: 1. No driving for 4 weeks, or until physician gives their ok. 2. The patient should sleep in their own bed, no medical bed needed. 3. Stairs are not an issue. If the bedroom is upstairs, it is advised that the patient go up at night and down in the morning for the first week. Go slowly, using handrail and take 1 step at a time. 4. BLESSING hose are to be worn for 30 days post surgery or until physician discontinues. 5. Heart hugger is to be worn 100% of the time until physician discontinues.(except when showering) 6. No lifting, pushing, or pulling more than 10 pounds for 12 weeks. The physician will advise of any restriction changes. 7. The patient is expected to continue the prescribed walking program. 8. Continue pain control per as needed orders. 9. Continue with incentive spirometry and splinting/heart hugger until otherwise directed by the physician. 10. Must shower daily using liquid antibacterial soap 11. Routine sternal incision care. No powders, lotions, ointments on incisions. No dressings are necessary on incisions unless they are draining. Dermabond tape is to remain on sternal incision until surgeon follow-up. 12. Please call surgeon/[id number] DEVELOPER for temp greater than 101 F or purulent drainage from incisions. 13. You should weigh yourself daily, record and bring log with you to follow up appointments. 14. All prescriptions given by surgeon for 30 days. Refills need to be filled through competitive intelligence manager/primary care physician. 15. A Red armband has been placed on the patient. It should be worn for 30 days post discharge from surgery and will be removed by the cardiac surgeons. If an ER visit is necessary, please make sure the number on the Red armband is called before going to ER. 16. You have been referred to and are expected to begin Cardiac Rehab in approximately 4-6 weeks. 17. Quitting smoking is the most important step you can take to improve your health. For additional information and assistance to quit smoking, please call the [place] tobacco quit line (5-440-WQQE-NOW/ ) or online: https ://www.[place].gov/[email or web address]/[email or web address]/tobacco/kqv-dl-xswt-to [facility] HOME HEALTH SERVICES TO PROVIDE: RN SKILLED HOME CARE SERVICES FOR POST-OP SURGICAL PATIENTS WITH THE FOLLOWI NG: Coronary Artery Bypass Surgery (CABG), Mitral Valve Replacement/Repair ( MVR), Aortic Valve Replacement/Repair (AVR) RN TO CONTINUE EDUCATION FROM ``ROAD TO A HEALTH HEART PATIENT EDUCATION MANUAL (GIVEN TO PATIENT IN THE HOSPITAL) MEDICATION RECONCILIATION WITH EDUCATION NEEDED ON FIRST HOME VISIT EMPHASIZE IMPORTANCE OF WEARING BREAST SUPPORT/HEART HUGGER ENCOURAGE USE OF INCENTIVE SPIROMETER 10 X EVERY HOUR WHILE AWAKE ENCOURAGE UTILIZATION OF LOWER EXTREMITY COMPRESSION STOCKINGS/BLESSING HOSE and ELEVATE LEGS ABOVE LEVEL OF HEART WHILE AT REST. ENCOURAGE AMBULATION 3-5x/day INCREASING TOLERATES, WHILE AVOIDING EXTREMES IN TEMPERATURE FREQUENCY: RN TO OPEN THE PATIENT WITHIN 24 HOURS OF DISCHARGE FROM THE HOSPITAL WITH TELEHEALTH INSTALLED AT [facility] [place], RN TO VISIT 2-3 X A WEEK FOR 4 WEEKS ESTABLISHED BY PATIENT NEEDS. LABORATORY: CBC, CMP TO BE DRAWN ON THE THIRD DAY HOME, (RAN STAT) FAX RESULTS TO [phone]. TELEHEALTH PARAMETERS: WEIGHT: NOTIFY MD OF WEIGHT GAIN OF 2 LBS IN 24 HOURS OR 5 LBS IN ONE WEEK HR: NOTIFY MD OF HR <55 BPM OR HR>100 BPM BP: NOTIFY MD IF BP <90/55 OR BP>140/100 O2 SAT: NOTIFY MD IF PO2<93% ON ROOM AIR SEND TELEHEALTH REPORT TO TRANSIT COACH OPERATOR AND CARDIOVASCULAR SURGEON THE FIRST WEEK OF CARE AND THEN BI-WEEKLY. PLEASE ADDITIONALLY COMMUNICATE ANY ABNORMALS AND NEW FINDINGS TO THE SURGEONS OFFICE. Discharge/Stand Alone Forms: Who Do I Call? Discharge Disposition: HOME WITH HOME HEALTH SERVICES
[2024-03-25 10:36] VITALS: BP 122/64; TEMP 98
--- NOTE | 2024-03-25 11:41 | P.PN ---
Subjective Patient is seen in follow-up for chronic kidney disease. Renal function at baseline. Denies chest pain or shortness of breath. Hemodynamically stable. No active complaints. Vital signs are stable. General: No acute distress. HEENT: Head exam is unremarkable. On room air. LUNGS: No audible rhonchi or wheezes. HEART: Rate and Rhythm are regular. ABDOMEN: Nontender. EXTREMITITES: Trace edema. Objective - Vital Signs Vital signs: Vital Signs Temp 98 F 03/25/24 08:30 Pulse 71 03/25/24 08:30 Resp 18 03/25/24 08:30 BP 122/64 03/25/24 08:30 Pulse Ox 98 03/25/24 09:03 FiO2 60 03/19/24 14:30 Intake & Output 03/24/24 03/25/24 03/25/24 18:59 06:59 18:59 Intake Total 598 220 Balance 598 220 Intake: Oral 598 220 Other: Voiding Method Toilet Toilet # Voids 3 1 ABP, PAP, CO, CI - Last Documented Arterial Blood Pressure 158/49 Pulmonary Artery Pressure 32/19 Cardiac Output 5 Cardiac Index 2.8 - Labs CBC & Chem 7: 03/25/24 08:27 03/25/24 08:27 Labs: Abnormal Lab Results - Last 24 Hours (Table) 03/24/24 03/24/24 03/25/24 Range/Units 16:45 19:49 06:04 WBC (3.8-10.6) k/uL RBC (3.80-5.40) m/uL Hgb (11.4-16.0) gm/dL Hct (34.0-46.0) % RDW (11.5-15.5) % Glucose (74-99) mg/dL POC Glucose (mg/dL) 137 H 136 H 120 H (70-110) mg/dL 03/25/24 03/25/24 Range/Units 08:27 08:27 WBC 13.5 H (3.8-10.6) k/uL RBC 2.89 L (3.80-5.40) m/uL Hgb 8.8 L (11.4-16.0) gm/dL Hct 27.6 L (34.0-46.0) % RDW 17.5 H (11.5-15.5) % Glucose 115 H (74-99) mg/dL POC Glucose (mg/dL) (70-110) mg/dL Assessment and Plan Plan: Assessment: 1. 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 GFR at baseline. 2. Status post left nephrectomy. 3. Coronary artery disease status post CABG this admission. 4. Hypokalemia from diuresis. Replaced. 5. Hypertension with chronic kidney disease with history of renal artery stenosis in the right kidney. Blood pressure controlled prior to admission with 2 meds. No evidence of renal artery stenosis noted on renal artery duplex ultrasound done this admission. 6. Volume overload. Improved with diuresis. 7. Anemia. Postoperative blood loss. Mild iron deficiency noted. Status post IV iron given March 21, 2024. Plan: Maintain current antihypertensive regimen. Avoid nephrotoxins. Allergic to LEONCIO inhibitor. Follow-up outpatient 1 to 2 weeks postdischarge.
--- NOTE | 2024-03-25 11:55 | P.PN ---
Subjective Progress Note Date: 03/25/24 Patient is a 68-year-old female with past medical history significant for brain aneurysm with previous coiling and stent, hypertension, hyperlipidemia, left subclavian stenosis, previous left-sided nephrectomy, hypothyroidism, Mnire's disease, generalized anxiety disorder, and former tobacco dependence. Patient denies any pre-existing lung disease. She does have significant smoking history, smoked 1 pack/day for over 30 years. Patient's primary care provider is marixa Orta out of Dr. Carranza's office. Patient presented to the emergency department back on March 09 with chest pain. Apparently, earlier that morning she was awoken with sudden onset substernal chest pain/tightness. She initially thought this was a anxiety attack as she does have a history of anxiety. No nausea, diaphoresis, shortness of breath. 30 minutes later, the feeling did not subside's, so she did call EMS. Patient did reportedly have a transient episode of A-fib RVR in route to the hospital. Patient was admitted with a diagnosis of non-ST elevation [place]. Heart catheterization performed 03/10/2024 demonstrating severe three-vessel coronary artery disease with significant disease involvment of the proximal LAD, demonstrating 60 to 70% , left circumflex artery with 70% stenosis. and 90% stenosis of a nondominant RCA. Follow-up echocardiogram preserved left ventricular ejection fraction of 55 to 60%. No significant valvular abnormalities reported. Cardiothoracic surgery was consulted, patient is scheduled for surgical revascularization tomorrow morning. We were consulted for preoperative pulmonary clearance ventilator management following the procedure. As stated above, patient has no diagnosed history of pre-existing lung disease. She does have significant smoking history over [id number]. Patient did have bedside spirometry which showed an FEV1 2.35 L or 99% of predicted. Chest CTA done on arrival did not show any evidence of pulmonary emboli. There was evidence of mild emphysematous changes. Biapical scarring. Few borderline mildly enlarged lymph nodes in the hilum measuring 1.2 cm. Otherwise no acute findings. Most recent CBC done yesterday with a WBC count 8.4, hemoglobin 14.1, hematocrit 43.2, platelets 251. aPTT currently therapeutic at 67.7. BMP from yesterday: Sodium 140, potassium 4.3, chloride 110, serum bicarb 21, BUN 22, creatinine 0.93, glucose 93. Patient is currently walking the halls on room air. She has no respiratory distress. No current chest pain. Does have normal saline infusing at 50 mL/h. Also, heparin is infusion per protocol. Surgery is scheduled for tomorrow morning. Progress note dated March 16, 2024. 68-year-old female seen in consultation yesterday. Please see the note above. The patient had a off-pump four-vessel bypass surgery done today by Dr. Conklin. Please refer to the operative note. The patient is currently on the ventilator. Ventilator settings include volume assist-control, rate 16, tidal volume 400, FiO2 50%, and PEEP of 5. Blood gases on same settings, with FiO2 of 100%, showed a pO2 of 300, pCO2 of 33, and a pH of 7.399. The patient is on nitroglycerin at 5 mcg/min, propofol at 40 mcg/kg/min, 0.9 at 50 cc an hour, and amiodarone per protocol. In addition, the patient be started on an insulin drip at 1.5 units an hour. The patient's cardiac output is 3.3, and the index is 1.9. Pulmonary artery pressures 27/13. Current labs include a white count 7.9, hemoglobin 8.2, hematocrit 23.7, and a platelet count of 111,000. Sodium 141, potassium 4, chlorides 117, CO2 20, BUN 16, creatinine 0.71. Glucose is 151. Chest x-ray reveals an endotracheal tube, which is 5 cm above the tracheal jaki. There is a left-sided chest tube present. There is a mediastinal tube in the midline. Nasogastric tube was also noted, as well as a Florien-Rae catheter. There are some bibasilar atelectasis, and a small right apical pneumothorax. Progress note dated March 17, 2024. 68-year-old female seen today in room 264. She is postop day #1, status post off-pump four-vessel bypass surgery. She is on volume assist-control, rate 14, tidal volume 400, FiO2 40%, PEEP of 5. Blood gases show pO2 of 138, pCO2 of 30, pH is 7.38. Repeat blood gases show pO2 of 98, pCO2 31, pH is 7.41. She is on pressure support of 5 and CPAP of 5. The patient can be extubated. Rapid shallow breathing index is 38. The patient is getting saline at 50 cc an hour, insulin at 2 units an hour, and amiodarone 0.5 mg/min. White count is 11, hemoglobin 8.7, hematocrit 25.2, platelet count normal. Sodium 139, potassium 3.3, chlorides 115, CO2 16, BUN 13, creatinine 0.75. Calcium is 7.9. Albumin is 3.4. Chest x-ray shows some postsurgical changes. Previous right apical pneumothorax is not seen. Progress note dated March 18, 2024. 68-year-old female seen today in room 264. She is postoperative day #2, status post off-pump four-vessel bypass grafting. The patient saturations were a bit low. We placed her on BiPAP, with settings of 12/6, and 60%. Patient is getting saline at 20 cc an hour. The patient blood gases showed a pO2 of 68, pCO2 of 28, and a pH of 7.40. This blood gas was consistent with a mixed acid- base disturbance, including a respiratory alkalosis, and metabolic acidosis. She has a nonanion gap hyperchloremic metabolic acidosis. The patient is getting saline at 20 cc an hour. An ultrasound of the right chest, reveals only small amounts of fluid. The patient received Lasix 20 mg IV push. Current laboratory data includes a white count 15.4, hemoglobin 8.6, hematocrit 24.8, and a platelet count of 152,000. Sodium 137, potassium 4.3, chlorides 112, CO2 18, BUN 16, creatinine 0.87. Glucose 117. Albumin 3.4. X-ray shows a right lower lobe infiltrate/effusion. Small left apical pneumothorax is seen. Progress note dated March 19, 2024. 68-year-old female seen today in room 264. The patient is postoperative day #3, status post off-pump four-vessel bypass surgery. Chest x-rays from yesterday, and this morning, reveal a partial right lower lobe collapse. The patient will undergo bronchoscopy today. The patient is on lactated Ringer's at 30 cc an hour. The patient continues on BiPAP, with settings of 12/5, and 60%. White count of 17.1, hemoglobin 7.8, hematocrit 22.6, and platelet count of 173,000. Blood gases today show pO2 of 78, pCO2 of 30, pH is 7.42. These blood gases are consistent with a mixed acid-base disturbance, including a respiratory alkalosis, and mild metabolic acidosis. Sodium 134, potassium 3.8, chlorides 108, CO2 18, anion gap 8, BUN 28, creatinine 0.99. Glucose 112. Albumin 3.4. Chest x-ray reveals either collapse, or infiltrate, in the right lower lobe, and a very small left apical pneumothorax. Progress note dated March 20, 2024. 60 room 264. She is postoperative day #4, status post [facility] The patient's chest x-ray has shown persistent infiltrate or collapse of the right lower lobe. Yesterday, we did bronchoscopy in the room, and the patient had significant purulent secretions in the right middle lobe but mostly in the right lower lobe. They were suctioned without difficulty. Specimens are sent to the laboratory for analysis. In addition, her procalcitonin level was elevated, and the patient was started on Zosyn empirically. Today she is doing a bit better. She is sitting in the chair next to her hospital bed. She is on 4 L of oxygen. She continues on Zosyn. She is getting lactated Ringer's at 20 cc an hour. White count is 14.7, hemoglobin 7.6, hematocrit 22.6, platelet count normal. Sodium 134, potassium 3.5, chlorides 109, CO2 22, BUN 25, creatinine 0.92. Glucose 134. Albumin is 3. His x-ray continues to show small pleural effusions, and bibasilar infiltrates, right greater than left. On 03/21/2024, the patient is postop day #5. She is calm and comfortable sitting up in a chair. She is using the incentive spirometer. No significant respiratory distress. She underwent a bronchoscopy and a bronchioloalveolar lavage of the right lower lobe. Cultures are still negative. Repeat chest x- ray still showing new consolidation right lung base along with bilateral pleural effusions slightly worse on the right. She is using the incentive spirometer, pulling approximately 2500 cc. Her cardiac rhythm is sinus. She is on no pressors. She is awake and alert and communicating. Sternum is stable clean and intact. She remains on IV Zosyn as a broad-spectrum antibiotic coverage. The blood work from today shows improvement in her white cell count which is currently down to 11.3 with a hemoglobin of 8.1 and a platelet count of 276. So dium is at 140, BUN is 18 with a creatinine of 0.8, electrolytes are all within normal limits. She is afebrile. Potassium level is being replaced. She remains on aspirin and Plavix. She is on amiodarone for A-fib prophylaxis for milligrams p.o. twice a day. She is still on metoprolol at a dose of 100 mg p.o. 3 times daily. She is on losartan 12.5 mg p.o. daily. No other significant events overnight. On 03/22/2024, the patient is doing very well. The patient is postop day #6 and this morning, the patient is awake and sitting up in a chair. She is calm and comfortable. Cardiac rhythm is sinus and the patient denies having any specific complaints. The patient had a follow-up chest x-ray showed interval clearing of the right lower lobe consolidation/effusion. Remains on IV Zosyn. Continues to use use the incentive spirometer and the patient is pulling approximately 2500 cc. She did encounter brief episodes of atrial fibrillation and currently she is back in normal sinus rhythm. She is maintained on metoprolol 100 mg twice a day and amiodarone 4 mg p.o. twice a day. The patient has been also started on losartan for blood pressure control and his dose was increased up to 25 mg p.o. daily. No nausea. No vomiting. No focal neurological deficits. WBC count 11.9 with a hemoglobin 8.8 and a platelet count of 345. BUN is 15 with a creatinine 0.8 and sodium is at 141. No other significant events overnight. The patient is ambulating. On 03/23/2024, the patient is being seen for a follow-up. The patient is doing well and the patient is currently postop day #7. No respiratory difficulties and the patient is currently on room air oxygen with a pulse ox of 97%. Repeat chest x-ray from today shows no acute cardiopulmonary abnormalities. The patient remains on IV Zosyn to complete antibiotic course. The cultures from the bronchoalveolar lavage were negative for any bacterial growth. WBC count is at 14.1, hemoglobin 9.1 and a platelet count of 396. Electrolytes are normal with a BUN of 12 and a creatinine of 0.9. The patient is ambulating. Cardiac rhythm is sinus. Chest tubes have been removed. Awaiting insurance authorization for rehabilitation at time of discharge. No other significant concerns at this point in time. She continues amiodarone for A-fib prophylaxis. She is also on aspirin and Plavix and the patient is also on metoprolol at a dose of 100 mg p.o. twice a day. She is on losartan 50 mg p.o. daily for blood pressure control. She is on Synthroid. She is on Lasix 20 mg p.o. daily. She is also on Lipitor 40 mg p.o. daily. On 03/24/2024, the patient is being seen for a follow-up. The patient is postop day #8 following coronary bypass surgery and the patient is currently on room air oxygen. No new complaints for now. No respiratory difficulties. She is ambulating. Cardiac rhythm is sinus. Using incentive spirometer. Chest x-ray from today shows no acute cardiopulmonary process. The patient remains on DuoNeb updrafts 4 times daily and as needed. Antibiotics has been discontinued. She remains on Lasix 20 mg p.o. daily. She remains on aspirin and Plavix. She remains on metoprolol 100 mg p.o. twice a day. She is on Synthroid 88 mcg p.o. daily. She is on Lipitor 40 mg p.o. daily and she is also on iron tablets. No issues with pain. She is looking for discharge probably within next 24 hours. Not a candidate for ECF. Hemoglobin is at 9.6, electrolytes are normal with a BUN of 12 with a creatinine 0.95. On , no new complaints the patient is calm and comfortable, denies having respite difficulties. She is on room air oxygen. No chest pain. No significant cough or sputum production. No other significant events overnight. Hemoglobin is at 8.8. White cell 13.5. BUN is 15 with a creatinine of 1.0. The patient remains on amlodipine 5 mg p.o. twice daily, metoprolol 100 mg p.o. twice daily, Lasix 20 mg p.o. daily. She is also on a combination of aspirin and Plavix. She remains on amiodarone 200 mg p.o. twice daily. Cardiac rhythm is sinus. Follow-up chest x-ray from today shows no acute abnormalities. Objective - Vital Signs Vital signs: Vital Signs Temp 98 F 03/25/24 08:30 Pulse 71 03/25/24 08:30 Resp 18 03/25/24 08:30 BP 122/64 03/25/24 08:30 Pulse Ox 98 03/25/24 09:03 FiO2 60 03/19/24 14:30 Intake & Output 03/24/24 03/25/24 03/25/24 18:59 06:59 18:59 Intake Total 598 220 Balance 598 220 Intake: Oral 598 220 Other: Voiding Method Toilet Toilet # Voids 3 1 ABP, PAP, CO, CI - Last Documented Arterial Blood Pressure 158/49 Pulmonary Artery Pressure 32/19 Cardiac Output 5 Cardiac Index 2.8 - Exam No acute distress, currently calm and comfortable on room air oxygen HEENT examination is grossly unremarkable. Neck supple. Full range of motion. No adenopathy thyromegaly or neck vein distention. Cardiovascular examination reveals regular rhythm rate. S1-S2 normal. No S3 or S4. No discernible murmur noted. Lungs reveal clear breath sounds. Breath sounds are equal bilaterally. No adventitious lung sounds including wheezes rhonchi or crackles. Abdomen soft bowel sounds. No masses. Extremities are intact. No cyanosis clubbing or edema. Skin is without rash or lesion. Neurologic examination is within normal range. No focal deficits. - Labs CBC & Chem 7: 03/25/24 08:27 03/25/24 08:27 Labs: Abnormal Lab Results - Last 24 Hours (Table) 03/24/24 03/24/24 03/25/24 Range/Units 16:45 19:49 06:04 WBC (3.8-10.6) k/uL RBC (3.80-5.40) m/uL Hgb (11.4-16.0) gm/dL Hct (34.0-46.0) % RDW (11.5-15.5) % Glucose (74-99) mg/dL POC Glucose (mg/dL) 137 H 136 H 120 H (70-110) mg/dL 03/25/24 03/25/24 Range/Units 08:27 08:27 WBC 13.5 H (3.8-10.6) k/uL RBC 2.89 L (3.80-5.40) m/uL Hgb 8.8 L (11.4-16.0) gm/dL Hct 27.6 L (34.0-46.0) % RDW 17.5 H (11.5-15.5) % Glucose 115 H (74-99) mg/dL POC Glucose (mg/dL) (70-110) mg/dL Assessment and Plan Plan: Postop day # 8, status post off-pump four-vessel bypass surgery. Postthoracotomy, currently on room air oxygen Right lower lobe collapse/infiltrate, right lower lobe, with small right-sided pleural effusion. The patient underwent a bronchoscopy, airway examination, therapeutic lavage, BAL to her right lower lobe on 03/19/[address] Shepard, secondary to right lower lobe collapse. She was started on Zosyn for antibiotic coverage and follow-up chest x-ray on 03/22/2024 shows interval clearing of the right lower lobe consolidation. Oxygenation is improved. Patient is currently on room air oxygen. The patient's chest x-ray shows no acute cardiopulmonary process from today and the cultures from the bronchioloalveolar lavage was negative. Antibiotics has been discontinued Multivessel coronary disease and the patient is status post acute non-ST segment elevation myocardial infarction. Paroxysmal onset atrial fibrillation, brief episode, currently normal sinus rhythm, status post ligation of the left atrial appendage as well as modified Morgan-Maze. The patient is currently on metoprolol and amiodarone. No anticoagulants for now. History of hypertension. History of hyperlipidemia. History of left subclavian stenosis. History of brain aneurysm, status post coiling 2018, and stenting, 2019. History of of left-sided nephrectomy Right renal artery stenosis 60% on CTA in 2020 History of Mnire's disease. Hypothyroidism. Generalized anxiety disorder. Former tobacco dependence. Plan: Clinically stable and the patient is to be discharged home today. Oxygenation stable and the patient is on room air oxygen No significant respite distress at rest Using incentive spirometer Chest x-ray is clear 200 mg Hemodynamically stable Cardiac rhythm is sinus Continue combination of aspirin and Plavix Continue metoprolol 100 mg p.o. twice a day Losartan 100 mg p.o. daily Amlodipine 5 mg p.o. twice a day Amiodarone 200 mg p.o. twice a day for A-fib prophylaxis Oral iron Thyroid hormone replacement Increase mobility and ambulation Monitor hemoglobin Will continue to follow Will be discharged home today.
--- NOTE | 2024-03-25 12:34 | P.PN ---
Subjective Progress Note Date: 03/25/24 68-year-old female with PMH of CAD s/p CABG x 4 with MONZON to LAD, hypertension, dyslipidemia, CKD stage II, solitary kidney status post nephrectomy, who was admitted to the hospital with ACS and underwent heart cath that revealed severe triple-vessel CAD, normal LVEF function. Patient underwent CABG that was complicated by acute blood loss anemia requiring blood transfusion. She also had right lower lobe collapse and underwent bronchoscopy with therapeutic lavage started on Zosyn for empiric coverage. Patient also had a brief episode of new onset A-fib, converted to sinus, status post left atrial appendage as well as modified Morgan-Maze. Initial plans for IPR but denied by insurance. 03/25 Patient was seen and examined. She denies any complaints. Initial plans for IPR but denied by insurance. Plans for home today. CBC and BMP significant for WBC 13.5, RBC 2.89, Hg 8.8, Hct 27.6, glu 115. Vitals Signs Reviewed. General: non toxic, no distress, appears at stated age Derm: warm, dry Head: atraumatic, normocephalic, symmetric Eyes: EOMI, no lid lag, anicteric sclera Mouth: no lip lesion, mucus membranes moist Cardiovascular: S1S2 reg, no murmur Lungs: CTA bilateral, no rhonchi, no rales , no accessory muscle use Ext: no gross muscle atrophy, no edema, no contractures Neuro: no focal neuro deficits Psych: Alert, oriented, appropriate affect Based on my assessment of this patient, this patient meets a moderate complexity level of care. CAD status post CABG: ASA 81 mg PO QD. Lipitor 40 mg PO QD. Plavix 75 mg PO QD. Metoprolol 100 mg PO BID. CKD stage II, solitary kidney, status post left nephrectomy: Renal duplex neg for stenosis. Nephrology following. A-Fib: No AC recommended. Metoprolol as above. Amiodarone 200 mg PO BID. Right lower lobe collapse: Status post bronchoscopy and BAL right lower lobe performed by Dr. Shepard 03/19/2024. BAL cultures negative. Zosyn discontinued. Acute blood loss anemia: Expected result of surgery. Iron 37, TIBC 164, ferritin 338. Continue Fesol 325 mg PO BID. Hypertension: Metoprolol as above. Losartan 100 mg PO QD. Hypothyroid: Synthroid 88 mcg PO QD. Anxiety: Ativan 0.5 mg PO QID PRN. Resolved: Hyperkalemia, Acute hypoxic respiratory failure CODE STATUS: FULL CODE. DVT Prophylaxis: Heparin SQ GI Prophylaxis: Protonix PO Designated medical POA if patient is not able to make medical decisions for themselves: I have reviewed the following oracle security consultant notes: Nephro, Pulmonary, CT surgery. I have reviewed the results of the following tests: CBC, BMP. I have ordered the following tests: I have discussed the care of this patient with the following independent historian: I have independently interpreted the following test below: I have discussed the management of this patient with the following physician: Objective - Vital Signs Vital signs: Vital Signs Temp 98 F 03/25/24 08:30 Pulse 71 03/25/24 08:30 Resp 18 03/25/24 08:30 BP 122/64 03/25/24 08:30 Pulse Ox 98 03/25/24 09:03 FiO2 60 03/19/24 14:30 Intake & Output 03/24/24 03/25/24 03/25/24 18:59 06:59 18:59 Intake Total 598 220 Balance 598 220 Intake: Oral 598 220 Other: Voiding Method Toilet Toilet # Voids 3 1 ABP, PAP, CO, CI - Last Documented Arterial Blood Pressure 158/49 Pulmonary Artery Pressure 32/19 Cardiac Output 5 Cardiac Index 2.8 - Labs CBC & Chem 7: 03/25/24 08:27 03/25/24 08:27 Labs: Abnormal Lab Results - Last 24 Hours (Table) 03/24/24 03/24/24 03/25/24 Range/Units 16:45 19:49 06:04 WBC (3.8-10.6) k/uL RBC (3.80-5.40) m/uL Hgb (11.4-16.0) gm/dL Hct (34.0-46.0) % RDW (11.5-15.5) % Glucose (74-99) mg/dL POC Glucose (mg/dL) 137 H 136 H 120 H (70-110) mg/dL 03/25/24 03/25/24 Range/Units 08:27 08:27 WBC 13.5 H (3.8-10.6) k/uL RBC 2.89 L (3.80-5.40) m/uL Hgb 8.8 L (11.4-16.0) gm/dL Hct 27.6 L (34.0-46.0) % RDW 17.5 H (11.5-15.5) % Glucose 115 H (74-99) mg/dL POC Glucose (mg/dL) (70-110) mg/dL
--- NOTE | 2024-03-25 13:54 | P.PN ---
Subjective Progress Note Date: 03/25/24 The patient is a 68-year-old female patient with a past medical history significant for CAD status post CABG x 4 with MONZON to LAD and diagonal as well as radial artery to OM and SVG to PLV of the LCx as well as hypertension and dyslipidemia as well as multiple comorbid conditions was admitted in the [facility] with acute coronary syndrome and subsequently she underwent a heart catheterization which revealed severe triple-vessel CAD and also an echo showed normal LV systolic function which she underwent CABG as described above. We CABG was complicated by atrial fibrillation and also anemia requiring blood transfusion March 21, 2024 The patient was seen and evaluated this morning which she is asymptomatic and hemodynamically stable. Her pressure remains elevated and consistent with stage II hypertension. I am going to start the patient on losartan. Please note that the patient does have 1 kidney and we are going to check with the nephrology team. Otherwise she reports no cardiovascular symptoms. The physical examination is remarkable for regular rhythm with a soft systolic murmur and clear breathing sounds bilaterally March 22, 2024 The patient was seen and evaluated this morning. She still hypertensive and the dose of losartan has increased earlier today which I would agree on. Urine output has been good. She has been maintaining normal sinus mechanism with a breakthrough episode of atrial fibrillation she was given a bolus of amiodarone which she is on amiodarone orally at this point. She is on dual antiplatelet therapy along with a statin. The chest x-ray was reviewed. The blood work was reviewed as well. March 23, 2024 Patient seen and examined on the cardiac stepdown unit. Patient has been transferred out of the intensive care unit. She is scheduled to go to rehab today. She states her chest is a little bit sore. Blood pressure readings were high this morning patient was started on losartan by CTS. Heart rate is in the 70s, pulse ox 99% on room air. Repeat blood work reveals WBC 14.1, hemoglobin 9.1, creatinine 0.92. The physical examination is remarkable for regular rhythm with a soft systolic murmur and clear breathing sounds bilaterally March 24, 2024 Patient seen and examined. Patient denies having any chest pain, shortness of breath. She states she is going to [facility] for rehab. Blood pressure 136/66, heart rate 66, pulse ox 97% on room air. Repeat blood work reveals WBC 13.3, hemoglobin 9.6. Creatinine 0.95, electrolytes normal. Losartan was again increased today by CTS. March 25, 2024 Patient states she has not been sleeping the last 2 nights. Her discharge plan has changed now to go home. Lungs are clear to auscultation. Chest x-ray is negative. Blood pressure 132/67, heart rate in the 70s, pulse ox 98% on room air. Assessment CAD status post CABG Preserved LV systolic function Solitary kidney Paroxysmal atrial fibrillation Multiple comorbid conditions Plan Continue the current medical regimen Patient is scheduled for discharge later today. Nurse practitioner note has been reviewed, I agree with documented findings and plan of care. Patient was seen and examined. Objective - Vital Signs Vital signs: Vital Signs Temp 98.2 F 03/25/24 03:20 Pulse 71 03/25/24 03:20 Resp 18 03/25/24 03:20 BP 132/67 03/25/24 03:20 Pulse Ox 98 03/25/24 09:03 FiO2 60 03/19/24 14:30 Intake & Output 03/24/24 03/25/24 03/25/24 18:59 06:59 18:59 Intake Total 598 220 Balance 598 220 Intake: Oral 598 220 Other: Voiding Method Toilet Toilet # Voids 3 1 ABP, PAP, CO, CI - Last Documented Arterial Blood Pressure 158/49 Pulmonary Artery Pressure 32/19 Cardiac Output 5 Cardiac Index 2.8 - Labs CBC & Chem 7: 03/25/24 08:27 03/25/24 08:27 Labs: Abnormal Lab Results - Last 24 Hours (Table) 03/24/24 03/24/24 03/25/24 Range/Units 16:45 19:49 06:04 POC Glucose (mg/dL) 137 H 136 H 120 H (70-110) mg/dL
== END 2024-03-25 11:54 | disposition home health service (06) | DRG 233 ==
LOC: EC 04:41 → 6NMEDSUR 08:08 → OBSVTOIN 08:09 → 3SCARD 09:41 → 2SICU 03-16 06:44 → 3SCARD 03-22 17:08
PROVIDERS: ADMIT Thoracic Surgery (Cardiothoracic Vascular Surgery); ATTEND Thoracic Surgery (Cardiothoracic Vascular Surgery)
PROC: 4A023N7 Measurement of Cardiac Sampling and Pressure, Left Heart, Percutaneous Approach (ICD-10-PCS; 2024-03-10)
PROC: B2111ZZ Fluoroscopy of Multiple Coronary Arteries using Low Osmolar Contrast (ICD-10-PCS; 2024-03-10)
PROC: 4A033BC Measurement of Arterial Pressure, Coronary, Percutaneous Approach (ICD-10-PCS; 2024-03-10)
PROC: 03BC4ZZ Excision of Left Radial Artery, Percutaneous Endoscopic Approach (ICD-10-PCS; 2024-03-16)
PROC: 06BP4ZZ Excision of Right Saphenous Vein, Percutaneous Endoscopic Approach (ICD-10-PCS; 2024-03-16)
PROC: 02L70CK Occlusion of Left Atrial Appendage with Extraluminal Device, Open Approach (ICD-10-PCS; 2024-03-16)
PROC: B24BZZ4 Ultrasonography of Heart with Aorta, Transesophageal (ICD-10-PCS; 2024-03-16)
PROC: 30233N1 Transfusion of Nonautologous Red Blood Cells into Peripheral Vein, Percutaneous Approach (ICD-10-PCS; 2024-03-16)
PROC: 02580ZZ Destruction of Conduction Mechanism, Open Approach (ICD-10-PCS; principal; 2024-03-16 08:00)
PROC: 0210093 Bypass Coronary Artery, One Artery from Coronary Artery with Autologous Venous Tissue, Open Approach (ICD-10-PCS; 2024-03-16 08:00)
PROC: 02100A3 Bypass Coronary Artery, One Artery from Coronary Artery with Autologous Arterial Tissue, Open Approach (ICD-10-PCS; 2024-03-16 08:00)
PROC: 02110Z9 Bypass Coronary Artery, Two Arteries from Left Internal Mammary, Open Approach (ICD-10-PCS; 2024-03-16 08:00)
PROC: 0B9F8ZX Drainage of Right Lower Lung Lobe, Via Natural or Artificial Opening Endoscopic, Diagnostic (ICD-10-PCS; 2024-03-19)
DX: I21.4 Non-ST elevation (NSTEMI) myocardial infarction (principal); J96.01 Acute respiratory failure with hypoxia; G72.81 Critical illness myopathy; E87.4 Mixed disorder of acid-base balance; E87.20 Acidosis, unspecified; J93.83 Other pneumothorax; D62 Acute posthemorrhagic anemia; J98.19 Other pulmonary collapse; D63.1 Anemia in chronic kidney disease; D69.59 Other secondary thrombocytopenia; I48.0 Paroxysmal atrial fibrillation; I70.1 Atherosclerosis of renal artery; Z95.828 Presence of other vascular implants and grafts; E03.9 Hypothyroidism, unspecified; I70.8 Atherosclerosis of other arteries; D50.9 Iron deficiency anemia, unspecified; I12.9 Hypertensive chronic kidney disease with stage 1 through stage 4 chronic kidney disease, or unspecified chronic kidney disease; E78.5 Hyperlipidemia, unspecified; H91.93 Unspecified hearing loss, bilateral; I25.10 Atherosclerotic heart disease of native coronary artery without angina pectoris; H81.01 Meniere's disease, right ear; E80.6 Other disorders of bilirubin metabolism; I25.2 Old myocardial infarction; Z86.79 Personal history of other diseases of the circulatory system; Z79.02 Long term (current) use of antithrombotics/antiplatelets; E87.70 Fluid overload, unspecified; E87.5 Hyperkalemia; E87.6 Hypokalemia; E87.8 Other disorders of electrolyte and fluid balance, not elsewhere classified; F41.1 Generalized anxiety disorder; N18.2 Chronic kidney disease, stage 2 (mild); R26.9 Unspecified abnormalities of gait and mobility; Z97.4 Presence of external hearing-aid; Z90.5 Acquired absence of kidney; Z87.891 Personal history of nicotine dependence; Z79.890 Hormone replacement therapy; Z79.899 Other long term (current) drug therapy; Z86.73 Personal history of transient ischemic attack (TIA), and cerebral infarction without residual deficits; Z88.8 Allergy status to other drugs, medicaments and biological substances
CPT/HCPCS: 31624; 36415; 36430; 70450; 71045; 71046; 71275; 76604; 80048; 80053; 80061; 80074; 82272; 82330; 82728; 82805; 83036; 83540; 83550; 83605; 83690; 83735; 83880; 84132; 84145; 84439; 84443; 84484; 85025; 85027; 85379; 85610; 85730; 86850; 86900; 86901; 86920; 87070; 87205; 88108; 88305; 89050; 93005; 93306; 93458; 93799; 93970; 93975; 94003; 94150; 94640; 94660; 94760; 96365; 96366; 96375; 99285

== ENCOUNTER → 2024-06-30 | Outpatient (CLI) | payer MEDICARE ==
--- NOTE | 2024-06-30 14:43 | US ---
EXAMINATION TYPE: US thyroid st tissue head/neck DATE OF EXAM: 06/30/2024 COMPARISON: NONE CLINICAL INDICATION: Female, 69 years old with history of R22.1 LOCALIZED SWELLING, MASS AND LUMP, NE CK; Palpable lump midline upper chest TECHNIQUE: Grayscale and color Doppler imaging of the thyroid gland. FINDINGS: GLAND SIZE: Right Lobe: 3.0 x 0.9 x 1.0 cm Overall Parenchyma: heterogeneous Left Lobe: 2.6 x 0.7 x 0.6 cm Overall Parenchyma: heterogeneous NODULES RIGHT: # of nodules measured on right: 0 LEFT: # of nodules measured on left: 0 ISTHMUS: # of nodules measured in the isthmus: 0 Bilateral neck scanned, no evidence of lymphadenopathy. Scanned at patients palpable: appears wnl Heterogeneous small size thyroid gland. No nodules. IMPRESSION:As above. Highest TI-RADS level nodule reported: 2017 ACR TI-RADS LEVEL: TI-RADS 1 - BENIGN: No FNA TI-RADS assessment score and recommendation for follow-up based on appropriate scoring and treatment protocols. TR3: If nodule size is ? 2.5 cm, FNA is recommended. If nodule size is ? 1.5 cm, follow-up imaging at 1, 3, and 5 years is recommended. TR4: If nodule size is ? 1.5 cm, FNA is recommended. If nodule size is ? 1.0 cm, follow-up imaging at 1, 2, 3, and 5 years is recommended. TR5: If nodule size is ? 1.0 cm, FNA is recommended. If nodule size is ? 0.5 cm, annual follow-up for up to 5 years is recommended. [email or web address] [facility], , 06/30/2024 2:41 PM
== END | disposition home or self-care (01) ==
LOC: RADUSWWP 13:56
PROVIDERS: ATTEND Family Medicine
DX: R22.1 Localized swelling, mass and lump, neck (principal)
CPT/HCPCS: 76536

== ENCOUNTER → 2024-08-02 | Outpatient (CLI) | payer MEDICARE ==
[2024-08-02 19:05] LABS: Basophils # (A) 0.07 X 10*3/uL (0.00-0.10); Basophils % (A) 1.1 %; Eosinophils # (A) 0.15 X 10*3/uL (0.04-0.35); Eosinophils % (A) 2.4 %; HCT 40.5 % (37.2-46.3); HGB 13.5 g/dL (12.0-15.0); Lymphocytes # (A) 2.02 X 10*3/uL (0.90-5.00); Lymphocytes % (A) 32.1 %; MCH 28.4 pg (27.0-32.0); MCHC 33.3 g/dL (32.0-37.0); MCV 85.3 FL (80.0-97.0); Mean Platelet Volume 9.8 FL (9.5-12.2); Monocytes # (A) 0.74 X 10*3/uL (0.20-1.00); Monocytes % (A) 11.7 %; NRBC Per 100 WBC 0 X 10*3/uL (0.00-0.01); Neutrophils # (A) 3.31 X 10*3/uL (1.80-7.70); Neutrophils % (A) 52.5 %; Platelet Count 289 X 10*3/uL (140-440); RBC 4.75 X 10*6/uL (4.10-5.20); RDW 13.6 % (11.5-14.5)
[2024-08-02 19:40] LABS: Blood Urea Nitrogen 20.2 mg/dL (9.0-27.0); Calcium 9.5 mg/dL (8.7-10.3); Carbon Dioxide 26.7 mmol/L (21.6-31.8); Chloride 104 mmol/L (96-109); Glucose 121 mg/dL (70-110); Potassium 4.2 mmol/L (3.5-5.5); Sodium 143 mmol/L (135-145)
[2024-08-02 20:12] LABS: % Iron Saturation 21.36 (12.00-45.00); Ferritin 58.3 ng/mL (10.0-291.0); Iron 63 UG/DL (50-170); Total Iron Binding Capacity 295 UG/DL (228-460)
[2024-08-02 21:25] LABS: Appearance,Urine Cloudy (Clear); Bilirubin,Urine Negative (Negative); Blood,Urine Negative (Negative); Color,Urine Dark Yellow (Yellow); Ketones,Urine Trace (Negative); Nitrite,Urine Negative (Negative); PH, Urine 5.5; Urobilinogen,Urine 0.2 E.U./DL
[2024-08-02 21:33] LABS: Bacteria,Urine None Seen (None Seen); Calcium Oxalate Crystals,Urine Present (None Seen)
== END | disposition home or self-care (01) ==
LOC: LABWHC1 15:46
PROVIDERS: ATTEND Nurse Practitioner Family
DX: N18.2 Chronic kidney disease, stage 2 (mild) (principal)
CPT/HCPCS: 36415; 80048; 81001; 82043; 82306; 82570; 82728; 83540; 83550; 85025

== ENCOUNTER → 2024-08-08 | Outpatient (CLI) | payer MEDICARE ==
--- NOTE | 2024-08-08 14:02 | MM ---
Reason for Exam: Screening (asymptomatic). Last mammogram was performed 1 year(s) and 2 month(s) ago. Patient History: Menarche at age 11. First Full-Term at age 24. Left ovary removed at age 27. Right ovary removed at age 27. Hysterectomy at age 27. Postmenopausal. Estrogen, starting at age 27 for 23 years. 1997, Benign Excisional Biopsy on the right side. Sister had breast cancer, age 55. Risk Values: Barbara 5 year model risk: 4.0%. NCI Lifetime model risk: 11.4%. Prior Study Comparison: 02/22/2021 Right Diagnostic Mammogram, [facility]. 06/17/2022 Bilateral MG 3D screening mammo w/cad, [facility]. 06/22/2023 Bilateral MG 3D screening mammo w/cad, [facility]. Tissue Density: There are scattered areas of fibroglandular density. Findings: Analyzed By CAD. Right breast: There is no suspicious group of microcalcifications or new suspicious mass. Left breast: There is no suspicious group of microcalcifications or new suspicious mass. Overall Assessment: Negative, BI-RAD 1 Management: Screening Mammogram of both breasts in [address] [facility] will attempt to contact patient to return for supplemental views and ultrasound if indicated. Patient should continue monthly self-breast exams. A clinical breast exam by your physician is recommended on an annual basis. This exam should not preclude additional follow-up of suspicious palpable abnormalities. Note on Barbara scores and lifetime risk: 1. A Barbara score greater than 3% is considered moderate risk. If this is the case, consider specialist referral to assess eligibility for a risk reducing agent. 2. If overall lifetime risk for the development of breast cancer is 20% or higher, the patient may qualify for future screening with alternating mammogram and breast MRI. [facility], , 08/08/2024 1:59 PM. Electronically signed and approved by: Sam Taylor DO
== END | disposition home or self-care (01) ==
LOC: RADMAMWWP 13:24
PROVIDERS: ATTEND Family Medicine
DX: Z12.31 Encounter for screening mammogram for malignant neoplasm of breast (principal); R92.323 Mammographic fibroglandular density, bilateral breasts; Z78.0 Asymptomatic menopausal state; Z80.3 Family history of malignant neoplasm of breast
CPT/HCPCS: 77063; 77067

== ENCOUNTER → 2024-10-12 | Outpatient (CLI) | payer MEDICARE ==
--- NOTE | 2024-10-12 09:23 | CT ---
EXAMINATION TYPE: CT chest wo con CT DLP: 236.30 mGycm, Automated exposure control for dose reduction was used. DATE OF EXAM: 10/12/2024 9:13 AM COMPARISON: CTA chest 03/09/2024, CT chest 12/30/2023, 10/20/2022 CLINICAL INDICATION:Female, 69 years old with history of R91.1 SPN; PHH, SOLITARY PULMONARY NODULE TECHNIQUE: Multiple axial images were obtained through the chest without IV contrast. Lack of IV or o ral contrast limits evaluation of solid and hollow organ viscera. . Coronal and sagittal reformats re viewed. FINDINGS: LUNGS/ PLEURA: Mild biapical pleural-parenchymal scarring. Few stable scattered pulmonary nodules. Ex amples including a right middle lobe 5.9 mm pulmonary nodule (series 4, image 32) and a subpleural ri ght middle lobe 3.5 mm pulmonary nodule (series 4, image 38). AIRWAY: Patent and unremarkable.. HEART: Size within normal limits.Left atrial appendage occlusion device. Post-CABG changes. No perica rdial effusion. Mild coronary artery calcifications present. MEDIASTINUM: No gross evidence of adenopathy. VASCULATURE: No aortic aneurysm. Atherosclerotic calcification of the aorta and its branches. MUSCULOSKELETAL: No acute osseous abnormalities. Sternotomy wires. SOFT TISSUES/LYMPH NODES: Unremarkable. LOWER NECK: No significant findings. UPPER ABDOMEN: Gallbladder appears to be surgically absent. Left kidney is surgically absent. IMPRESSION: Few stable pulmonary nodules. Consider benign due to stability. No definitive new or enlarging nodule s. [facility], , 10/12/2024 9:20 AM
== END | disposition home or self-care (01) ==
LOC: RADCTMAIN 08:58
PROVIDERS: ATTEND Family Medicine
DX: R91.8 Other nonspecific abnormal finding of lung field (principal)
CPT/HCPCS: 71250